=== PATIENT | female | born 1975 | race Caucasian/White ===

== ENCOUNTER 2024-01-14 08:26 | Outpatient (OUT) | payer BC, SELFPAY ==
--- NOTE | 2024-01-14 | XR_ITS ---
The [address] [address] Patient Name: CHARLI HARRIS MRN: [id number] date: 1975 Sex: F Assigned Patient Location: Current Patient Location: Accession/Order Number: [id number] Exam Date: 01/14/2024 08:27 Report Date: 01/17/2024 09:56 At the request of: LUCERO PAULA Procedure: XR lumbar spine 2-3V EXAMINATION: XR lumbar spine 2-3V HISTORY: LUMBAR SPINE PAIN COMPARISON: XR lumbar spine 05/03/2023 FINDINGS: BONES: Posterior mechanical fusion L4-L5 via bilateral pedicle screws and rods; no appreciable hardware fracture loosening. Mechanical fusion of left sacroiliac joint. Posterior decompression of L5. Mild degenerative facet arthropathy L4-L5, L5-S1. DISC SPACES: No significant disc height narrowing, subluxation, or endplate abnormality. PARASPINOUS: Negative. No paraspinous abnormality is seen. OTHER: Negative. XR/XR lumbar spine 2-3V IMPRESSION: 1. Mechanical fusion of L5-S1 along with posterior decompression. 2. Fusion of left sacroiliac joint. 3. No appreciable acute abnormality. Electronically authenticated by: ANA ELIAS Date: 01/17/2024 09:56
== END 2024-01-14 08:27 | disposition home or self-care (01) ==
LOC: EC 08:26
PROVIDERS: Visit Provider Orthopaedic Surgery Orthopaedic Surgery of the Spine
DX: Z47.89 Encounter for other orthopedic aftercare (principal); M43.26 Fusion of spine, lumbar region; Z98.1 Arthrodesis status
CPT/HCPCS: 72100

== ENCOUNTER 2024-01-24 13:55 | Outpatient (OUT) | payer BC, SELFPAY ==
--- NOTE | 2024-01-24 14:56 | P.CN_ITS ---
Consult Note: HPI Data of Consult Patient: new to practice Consult date: 01/24/24 Requesting Physician: Bing Rodriguez MD Primary Care Provider: Non-Staff Physician, Consult Narrative Reason for consult: right low back/buttock pain Narrative: 48yof who presents for evaluation. increasing right low back and buttock pain. had lumbar fusion l3-5 earlier this year. very tender over right PSIS. has difficulty sleeping, sitting in car. currently uses gabapentin. complete physical therapy and continues in provider directed home exercises >6 weeks, without lasting benefit. denies adverse med side effects. cc:: CC: Bing Rodriguez MD Review of Systems ROS Status of ROS 10 or more systems reviewed and unremark able except as noted in history and below Exam Narrative Exam Narrative: Psych-alert and oriented x 3. Attentive and appropriate, constitutionally normal, displays normal mood and affect per situation.? There are no obvious deficits in memory, reasoning, or intellect.? Skin-no obvious rashes, bruising, erythema noted to the patient's area of pain. Extremities- extremities are warm with minimal edema and palpable pulses. Lumbar-no significant tenderness to palpation noted in the lumbar spine and paraspinal musculature.? Pain is elicited with extension, and lateral rotation of the lumbar spine. Range of motion is slightly diminished with these motions due to pain. Facet loading maneuvers are positive bilaterally and do appear to be concordant with the patient's normal complaints of pain.? Sacroiliac - tender to palpation over right PSIS. Positive Dannie's on right. Positive thigh thrust on right. Coordination remains intact.? Gait remains non-antalgic. Assessment and Plan Assessment and Plan (1) Sacroiliac joint dysfunction of right side: Plan 48yof who presents for evaluation. failed conservative measures, as noted. 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 fused from l3-5. given symptoms and exam, prudent to attempt right sij injection under fluoroscopic guidance, as requested by back surgeon. she is in agreement. meds reviewed, no changes. follow up after procedure.
== END 2024-01-24 13:56 | disposition home or self-care (01) ==
LOC: PM 13:55
PROVIDERS: Visit Provider Anesthesiology
DX: M53.3 Sacrococcygeal disorders, not elsewhere classified (principal)
CPT/HCPCS: G0463

== ENCOUNTER 2024-02-21 07:58 | Day surgery (SDC) | payer BC, SELFPAY ==
[2024-02-21 08:39] VITALS: BP 153/98; PULSE 99; TEMP 36.6; O2SAT 95
[2024-02-21 08:50] LABS: Glucometer 126 mg/dL (74-106)
[2024-02-21 09:08] VITALS: BP 142/87; BP 148/89; PULSE 102; PULSE 88; O2SAT 91; O2SAT 92
[2024-02-21] MEDS: BUPIVACAINE HCL 0.25% PF 25 MG/10 ML VIAL 5 ML INJ (09:09)
[2024-02-21] MEDS: IOHEXOL 240 MG/ML - 10 ML VIAL INJ (09:09)
[2024-02-21] MEDS: TRIAMCINOLONE ACETONIDE 40 MG/ML VIAL INJ (09:10)
[2024-02-21] MEDS: LIDOCAINE HCL 2% 400 MG/20 ML MDV 15 ML INJ (09:10)
--- NOTE | 2024-02-21 09:10 | W.PM.PROCNOT ---
Date of procedure: 02/21/24 Pre-op diagnosis: Pain due to right sacroiliitis Post-op diagnosis: same as pre-op Procedure: Procedure: Right sacroiliac joint injection Medications: Bupivacaine 0.25% 2cc, kenalog 40mg After informed consent was obtained, the patient was brought to the medical procedure unit and placed in the prone position, when a timeout was completed verifying correct patient, procedure, site, positioning, implant, and/or special equipment.? The skin overlying the area was prepped and draped in standard sterile fashion using alcohol.? A 25-gauge needle was inserted towards the right sacroiliac joint under direct fluoroscopic imaging.? Needle tip was advanced until the joint was encountered.? We instilled a total of 2 mL of solution.? Postoperatively needles were removed.? The patient tolerated the procedure well without complication.? The patient reported reduction in pain symptoms postoperatively. Anesthesia: Local Surgeon: Bing Rodriguez Pathology: none sent Condition: stable Disposition: no change
== END 2024-02-21 09:16 | disposition home or self-care (01) ==
LOC: SURGOUT 07:58
PROVIDERS: Visit Provider Anesthesiology
DX: M46.1 Sacroiliitis, not elsewhere classified (principal)
CPT/HCPCS: 27096; 36415; 82948; J0665; J3301; Q9966

== ENCOUNTER 2024-03-01 08:27 | Outpatient (OUT) | payer BC, SELFPAY ==
--- NOTE | 2024-03-01 09:02 | PM.CN ---
Consult Note: HPI Data of Consult Patient: known to practice within the last 3 years Consult date: 01/24/24 Requesting Physician: Luz Singh NP Primary Care Provider: Non-Staff Physician, MD Consult Narrative Reason for consult: right low back/buttock pain Narrative: 48yof who presents for evaluation. increasing right low back and buttock pain. had lumbar fusion l3-5 earlier this year. has difficulty sleeping, sitting in car. currently uses gabapentin. complete physical therapy and continues in provider directed home exercises >6 weeks, without lasting benefit. denies adverse med side effects. patient recently underwent right SIJ injection with no significant relief while anesthetized, 50% improvement ongoing. Patient continues to have moderate to severe low back pain without NC. cc:: CC: Luz Singh NP Review of Systems ROS Status of ROS 10 or more systems reviewed and unremarkable except as noted in history and below Musculoskeletal Reports: back pain and joint pain [facility]SH [facility] Medical History (Updated 03/01/24 @ 09:04 by Luz Singh NP) Osteoarthritis ?M19.90 - Unspecified osteoarthritis, unspecified site (ICD-10) Anxiety ?F41.9 - Anxiety disorder, unspecified (ICD-10) Diabetes ?E11.9 - Type 2 diabetes mellitus without complications (ICD-10) HTN (hypertension) ?I10 - Essential (primary) hypertension (ICD-10) Surgical History History of Achilles tendon repair ?Z98.890 - Other specified postprocedural states (ICD-10) History of hysterectomy ?Z90.710 - Acquired absence of both cervix and uterus (ICD-10) History of lumbar fusion ?Z98.1 - Arthrodesis status (ICD-10) History of hernia repair ?Z98.890 - Other specified postprocedural states (ICD-10) ?Z87.19 - Personal history of other diseases of the digestive system (ICD-10) Meds Home Medications and Allergies Home Medications ?Medication ?Instructions ?Recorded ?Confirmed ?Type dulaglutide 1.5 mg/0.5 mL 1.5 mg subcut QWEEK 01/24/24 02/21/24 [facility] gabapentin 300 mg capsule 300 mg PO DAILY 01/24/24 02/21/24 History melatonin 5 mg tablet 5 mg PO DAILY 01/24/24 02/21/24 History metformin 1,000 mg tablet 1,000 mg PO BID 01/24/24 02/21/24 History pantoprazole 40 mg tablet,delayed 40 mg PO BID 01/24/24 02/21/24 History release (Protonix) paroxetine HCl 30 mg tablet (Paxil) 30 mg PO DAILY 01/24/24 02/21/24 History verapamil 240 mg 24 hr 240 mg PO DAILY 01/24/24 02/21/24 History capsule,extended release Allergies Allergy/AdvReac Type Severity Reaction Status Date / Time acetaminophen [From [place]] Allergy Unknown Unknown Verified 02/21/24 08:37 codeine Allergy Unknown Unknown Verified 02/21/24 08:37 hydrocodone [From [place]] Allergy Unknown Unknown Verified 02/21/24 08:37 Sulfa (Sulfonamide Allergy Unknown Unknown Verified 02/21/24 08:37 Antibiotics) Exam Constitutional Documenting provider has reviewed patient's vital signs: yes Common normals: no apparent distress, oriented x3, healthy appearing, alert and well nourished General appearance: cooperative HENMT Common normals: normocephalic, hearing grossly normal bilaterally and moist oral mucous membranes Head and scalp: normocephalic Eye Common normals: PERRL Pupil: PERRL Neck & C-Spine Common normals: full ROM General: normal visual inspection Chest Common normals: inspection of chest normal Respiratory Common normals: normal respiratory effort, no retractions and no use of accessory muscles Back & Pelvis Lumbar spine/lower back: ROM limited, pain with ROM and lumbar spinal tenderness; no paraspinal muscle tenderness and no paraspinal muscle spasm Sacroiliac joints: SI joint(s) abnormal Other: right sij mildly positive mervat(patricks), gaenslens, thigh thrust, compression test strength 5/5 in BLE sensation intact BLE increased low back pain with standing and walking Neuro Common normals: oriented x3, CN's II-XII intact bilaterally, moves all extremities, no focal motor deficits, no sensory deficits noted and deep tendon reflexes 2+ bilaterally Sensorium/orientation: alert Motor exam: strength 5/5 throughout and no movement abnormalities noted Psych Common normals: mental status grossly normal, thought process normal, cooperative, affect normal, speech normal and activity/motor behavior normal Speech: normal speech Thought process: normal thought process Results Additional Findings Additional findings: If on a controlled substance or opioids, I have checked an [place] report on this patient and there are no aberrancies noted in the prescribing history.??If on a controlled substance or opioid a drug screen was completed and reviewed within the last year, and if there has not been a drug screen completed we ordered one today to monitor higher risk, state monitored pain medication use. As part of providing excellent, safe, comprehensive care, the following was completed at our patient's visit: 1. A medication reconciliation and review to ensure accurate knowledge of current/active medications, including asking our patients to inform us about any [id number] medications or herbal remedies/nutritional supplements/alternative remedies. 2. A review to specifically ensure our patients have had annual screening for screening for depression, screening for tobacco use, and screening for unhealthy alcohol use. For concerning screenings had a discussion with the patient, provided patient education, and recommended follow-up with primary care provider when appropriate. If patient noted with a risk of falling, they received education on strength, gait, and balance training to prevent future risk of falling. Assessment and Plan Assessment and Plan (1) Sacroiliac joint dysfunction of right side: (2) Lumbar spondylosis: (3) Status post lumbar spinal fusion: Plan right SIJ injection provided minor relief while anesthetized, 50% improvement ongoing. patient continues to report moderate to severe axial low back pain, notable pain over L3-5 facets on exam. Pt to return to [facility] for f/u as scheduled. We can consider bilateral L3-4 L4-5 MBBs x2 working towards RFA in the future however I would like pt to be 1 year post-op as her pain may continue to improve without need for injections f/u 6 months, sooner if needed or advised otherwise by [facility]
== END 2024-03-01 08:28 | disposition home or self-care (01) ==
LOC: PM 08:28
PROVIDERS: Visit Provider Nurse Practitioner
DX: M53.3 Sacrococcygeal disorders, not elsewhere classified (principal); M47.816 Spondylosis without myelopathy or radiculopathy, lumbar region; M43.26 Fusion of spine, lumbar region
CPT/HCPCS: G0463

== ENCOUNTER 2024-03-31 10:02 | Outpatient (OUT) | payer BC, SELFPAY ==
--- NOTE | 2024-03-31 | XR_ITS ---
The [address] [address] Patient Name: CHARLI HARRIS MRN: [id number] date: 1975 Sex: F Assigned Patient Location: Current Patient Location: Accession/Order Number: [id number] Exam Date: 03/31/2024 10:02 Report Date: 04/02/2024 06:45 At the request of: LUCERO PAULA Procedure: XR lumbar spine min 4V EXAMINATION: XR lumbar spine min 4V HISTORY: LUMBAR SPINE PAIN COMPARISON: XR lumbar spine 01/14/2024 FINDINGS: BONES: Posterior mechanical fusion L5-S1 via bilateral pedicle screws and rods, and posterior decompression of L5; no appreciable hardware fracture loosening. Fusion of left sacroiliac joint, unchanged. DISC SPACES: Mild narrowing L2-L3, L5-S1. PARASPINOUS: Negative. No paraspinous abnormality is seen. OTHER: Negative. XR/XR lumbar spine min 4V IMPRESSION: 1. Stable surgical changes without evidence of hardware failure or change in alignment. 2. Stable to slight progression of degenerative disc disease. Electronically authenticated by: ANA ELIAS Date: 04/02/2024 06:45
--- OUTSIDE RECORDS SUMMARY | 2024-03-31 10:26 | XMS_ITS | CCD ---
Author Organization [facility] CliniSypr Care Team Providers Care Learning Disabilities Resource Teacher Name Role Phone Elias Alex Abel Primary Care Provider Zayra Sloan Primary Care Provider Zayra Sloan Primary Care Provider Zayra Sloan DO Primary Care Provider [phone] HAI, DR GLENN Gambino Admitting Unavailable WEST, DR GLENN Gambino Consulting Unavailable WEST, DR GLENN Gambino Attending Unavailable MISC, DR WALDORN Primary Care Unavailable MISC, DR WALDRON Primary Care Unavailable WEST, DR GLENN Gambino Admitting Unavailable WEST, DR GLENN Gambino Consulting Unavailable WEST, DR GLENN Gambino Attending Unavailable ZIEBER, DR ANA Latif Consulting Unavailable MISC, DR WALDRON Primary Care Unavailable ZIEBER, DR ANA Latif Consulting Unavailable HIGHLANDER, JEAN MARIE Attending Unavailable HIGHLANDER, JEAN MARIE Admitting Unavailable HIGHLANDER, JEAN MARIE Consulting Unavailable MISC, DR WALDRON Primary Care Unavailable WEST, DR GLENN Gambino Consulting Unavailable WEST, DR GLENN Gambino Attending Unavailable WEST, DR GLENN Gambino Admitting Unavailable MISC, DR WALDRON Primary Care Unavailable PERI LEONG Attending Unavailable WEST, DR GLENN Gambino Consulting Unavailable PERI LEONG Admitting Unavailable ZIEBER, DR ANA Latif Consulting Unavailable SALOPERI Consulting Unavailable WEST, DR GLENN Gambino Consulting Unavailable WEST, DR GLENN Gambino Attending Unavailable WEST, DR GLENN Gambino Admitting Unavailable MISC, DR WALDRON Primary Care Unavailable Zayra Sloan DO Primary Care Provider [phone] Zayra Sloan DO Primary Care Provider Zayra Sloan DO Primary Care Provider NON STAFF Primary Care Provider MD Ministerio Aguirre Attending Provider [phone] Zayra Sloan DO Primary Care Provider [phone] [facility] Zayra POWELL Primary Care Provider [facility]. Other Primary Care Provider MARCE ELLIOT Attending Unavailable SIEGAL, ELLIOT Referring Unavailable [facility], [facility] OTHER Primary Care Unavailable [facility], [facility] OTHER Primary Care Unavailable [facility], [facility]. Other Primary Care Provider LUTMAN V, CHRISTOPHER Admitting Unavailabl e LUTMAN V, CHRISTOPHER Attending Unavailabl e ZAYRA SLOAN Primary Care Unavailable HEMPHILL, KEILA S Attending Unavailable [facility], [facility] OTHER Primary Care Unavailable HEMPHILL, KEILA S Referring Unavailable [facility] OTHER Primary Care Unavailable HEMPHILL, KEILA S Referring Unavailable HEMPHILL, KEILA S Attending Unavailable [facility], [facility] OTHER Primary Care Unavailable HEMPHILL, KEILA S Referring Unavailable HEMPHILL, KEILA S Attending Unavailable [facility], [facility] OTHER Primary Care Unavailable [facility], [facility] OTHER Primary Care Unavailable [facility] OTHER Primary Care Unavailable [facility], [facility] OTHER Primary Care Unavailable SIEGAL, ELLIOT Attending Unavailable SIEGAL, ELLIOT Referring Unavailable SELF, SELF Referring Unavailable [facility], [facility] OTHER Primary Care Unavailable HEMPHILL, KEILA S Attending Unavailable [facility], [facility] OTHER Primary Care Unavailable [facility], [facility] OTHER Primary Care Unavailable SIEGAL, ELLIOT Attending Unavailable MARCEL GALLEGO Referring Unavailable SIEGAL, ELLIOT Admitting Unavailable SIEGAL, ELLIOT Referring Unavailable [facility], [facility] OTHER Primary Care Unavailable SIEGAL, ELLIOT Attending Unavailable [facility], [facility] OTHER Primary Care Unavailable SIEGAL, ELLIOT Attending Unavailable SIEGAL, ELLIOT Referring Unavailable SELF, SELF Referring Unavailable [facility], [facility] OTHER Primary Care Unavailable HEMPHILL, KEILA S Attending Unavailable [facility], [facility] OTHER Primary Care Unavailable HEMPHILL, KEILA S Attending Unavailable SIEGAL, ELLIOT Referring Unavailable [facility], [facility] OTHER Primary Care Unavailable SIEGAL, ELLIOT Attending Unavailable SIEGAL, ELLIOT Referring Unavailable SIEGAL, ELLIOT Attending Unavailable [facility] OTHER Primary Care Unavailable SIEGAL, ELLIOT Referring Unavailable SIEGAL, ELLIOT Referring Unavailable [facility], [facility] OTHER Primary Care Unavailable SIEGAL, ELLIOT Attending Unavailable SIEGAL, ELLIOT Referring Unavailable [facility] OTHER Primary Care Unavailable SIEGAL, ELLIOT Attending Unavailable [facility], [facility] OTHER Primary Care Unavailable SIEGAL, ELLIOT Attending Unavailable SIEGAL, ELLIOT Referring Unavailable SIEGAL, ELLIOT Attending Unavailable SIEGAL, ELLIOT Referring Unavailable [facility], [facility] OTHER Primary Care Unavailable [facility] OTHER Primary Care Unavailable HEMPHILL, KEILA S Referring Unavailable HEMPHILL, KEILA S Attending Unavailable [facility] OTHER Primary Care Unavailable HEMPHILL, KEILA S Referring Unavailable HEMPHILL, KEILA S Attending Unavailable SIEGAL, ELLIOT Referring Unavailable [facility], [facility] OTHER Primary Care Unavailable SIEGAL, ELLIOT Attending Unavailable SIEGAL, ELLIOT Admitting Unavailable SIEGAL, ELLIOT Referring Unavailable [facility], [facility] OTHER Primary Care Unavailable SIEGAL, ELLIOT Attending Unavailable PEDRO PABLO, SELVON F Referring Unavailable YONLEY, ZAYRA L Primary Care Unavailable PEDRO PABLO, SELVON F Referring Unavailable YONLEY, ZAYRA L Primary Care Unavailable PEDRO PABLO, SELVON F Admitting Unavailable PEDRO PABLO, SELVON F Attending Unavailable YONLEY, ZAYRA L Primary Care Unavailable Yonley DO, Zayra L Primary Care Provider [phone] SIEGAL, ELLIOT D Referring Unavailable YONLEY, ZAYRA L Primary Care Unavailable YONLEY, ZAYRA L Referring Unavailable YONLEY, ZAYRA L Primary Care Unavailable SIEGAL, ELLIOT D Referring Unavailable YONLEY, ZAYRA L Primary Care Unavailable SIEGAL, ELLIOT D Referring Unavailable YONLEY, ZAYRA L Primary Care Unavailable SIEGAL, ELLIOT D Referring Unavailable YONLEY, ZAYRA L Primary Care Unavailable SIEGAL, ELLIOT D Referring Unavailable YONLEY, ZAYRA L Primary Care Unavailable YONLEY, ZAYRA L Primary Care Unavailable SIEGAL, ELLIOT D Referring Unavailable RICARDO VIVEROS Referring Unavailable SHENDGE, VITHAL Referring Unavailable RICARDO VIVEROS Attending Unavailable RICARDO VIVEROS A Referring Unavailable SHENDGE, VITHAL Attending Unavailable Jennifer NOBLE, Bing Lopez Attending Unavailable Jennifer NOBLE, Bing Lopez Attending Unavailable TINO SÁNCHEZ Referring Unavailable ZAYRA SLOAN Primary Care Unavailable ZAYRA SLOAN Primary Care Unavailable ZAYRA SLOAN Primary Care Unavailable Allergies Allergy Classification Reported Allergen(s) Allergy Type Date of Onset Reaction(s) Facility Opioid Agonists (1 source) Codeine Drug Allergy 3 Shortness Of Breath [facility] Serotonin Reuptake Inhibitors (SSRIs) (1 source) Sertraline Drug Allergy 4 Nausea And Vomiting [facility] Sulfonamides (antibiotic) (1 source) Sulfonamides (Antibiotic) Drug Allergy 2 Shortness Of Breath, Swelling [facility] (20 sources) Codeine; Translations: [CODEINE] Drug Allergy 3 Shortness Of Breath [facility] [place] (20 sources) Sertraline; Translations: [SERTRALINE] Drug Allergy 4 Nausea And Vomiting, Shortness of Breath [facility] [place] (20 sources) Sulfonamides (Antibiotic) Propensity to adverse reactions to drug 2 Shortness Of Breath, Swelling [facility] [place] (1 source) Codeine Drug Allergy [facility] (1 source) Sertraline Drug Allergy [facility] (1 source) Sulfonamides (Antibiotic) Drug allergy (disorder) [facility] (20 sources) Penicillin G; Translations: [PENICILLIN G] Drug Allergy 1 Rash [facility] Work Phone: (20 sources) Phentermine; Translations: [PHENTERMINE] Drug Allergy 2 Shortness Of Breath [facility] (2 sources) Sulfonamides (Antibiotic); Translations: [SULFA (SULFONAMIDE ANTIBIOTICS)] Allergy to substance 2 Unknown Reaction [facility] (20 sources) Sulfonamides (Antibiotic) Propensity to adverse reactions to drug 2 Shortness Of Breath, Swelling [facility] (3 sources) Acetaminophen / HYDROcodone; Translations: [HYDROCODONE-ACET AMINOPHEN] Drug Allergy 4 Hives, Rash [facility] Medications Current Medications Medication Drug Class(es) Dates Sig (Normalized) Sig (Original) acetaminophen 500 mg oral tablet (7 sources) Start: 02-11-2023 End: 02-11-2023 acetaminophen (OFIRMEV) IVPB 1,000 mg Start: 09-08-2022 take 2 tablets by mo uth every six hours as needed for pain acetaminophen (TYLENOL) 500 MG tablet Take 2 tablets by mouth every 6 hours as needed for Pain 60 tablet 1 09/08/2022 Active Start: 09-08-2022 take 1000 mg by mout h every six hours, then take 4000 mg by mouth every twenty-four hours 1,000 mg, Oral, EVERY 6 HOURS, First dose on Wed09/08/22 at 1315, Until Discontinued Maximum dose of acetaminophen is 4000 mg from all sources in 24 hours. Post-op Start: 12-10-2021 End: 12-10-2021 acetaminophen (TYLENOL) tabl et 650 mg acetaminophen 325 mg / HYDROcodone bitartrate 5 mg oral tablet (7 sources) Opioid Agonist Start: 12-24-2023 End: 12-24-2023 HYDROcodone-acetaminophen (LORCET) 5-325 MG per tablet Indications: Tricompartment osteoarthritis of right knee Take 1 tablet by mouth every 4 hours as needed for Pain for up to 3 days. Intended supply: 3 days. Take lowest dose possible to manage pain Max Daily Amount: 6 tablets 18 tablet 0 12/24/2023 12/24/2023 Discontinued (Allergic response) Start: 02-11-2023 End: 02-11-2023 take 1-2 tablets by mouth every four hours as needed hydroCODone-acetaminophen (NORCO) 5-325 MG per tablet 1-2 tablet Start: 02-11-2023 End: 02-16-2023 take 1 tablet by mouth four times daily as needed for pain hydroCODone-acetaminophen 5-325 MG table t Indications: Elective surgery Take 1 tablet by mouth 4 times daily as needed for Moderate Pain for up to 5 days. 20 tablet 02/11/2023 Active Start: 12-10-2021 End: 12-13-2021 take 1 tablet by mouth every six hours as needed for pain HYDROcodone-acetaminophen (NORCO) 5-325 MG per tablet Indications: Dysmenorrhea Take 1 tablet by mouth every 6 hours as needed for Pain for up to 3 days. 10 tablet 0 12/10/2021 12/13/2021 Active Start: 12-10-2021 HYDROcodone-ac etaminophen (NORCO) 5-325 MG per tablet 1 tablet acetaminophen 325 mg / oxyCODONE hydrochloride 5 mg oral tablet (2 sources) Opioid Agonist Start: 12-24-2023 End: 12-27-2023 oxyCODONE-acetaminophen (ENDOCET) 5-325 MG per tablet Indications: Tricompartment osteoarthritis of right knee Take 1 tablet by mouth every 6 hours as needed for Pain for up to 3 days. Intended supply: 3 days. Take lowest dose possible to manage pain Max Daily Amount: 4 tablets 12 tablet 0 12/24/2023 12/27/2023 Active Start: 12-24-2023 End: 12-24-2023 oxyCODONE-acetaminophen (PER COCET) 5-325 MG per tablet 1 tablet [id number] actuat albuterol 0.09 mg/actuat metered dose inhaler (20 sources) beta2-Adrenergic Agonist Start: 11-28-2020 take 2 puff(s) by inhalation every six hours as needed for wheezing albuterol sulfate HFA (VENTOLIN HFA) 108 (90 Base) MCG/ACT inhaler Inhale 2 puffs into the lungs every 6 hours as needed for Wheezing 1 Inhaler 3 11/28/2020 Active Start: 09-23-2020 take 2 puff(s) by in halation four times daily as needed for wheezing albuterol sulfate HFA (VENTOLIN HFA) 108 (90 Base) MCG/ACT inhaler Inhale 2 puffs into the lungs 4 times daily as needed for Wheezing or Shortness of Breath 1 Inhaler 0 09/23/2020 Active Start: 06-29-2019 take 2 puff(s) by in halation every six hours as needed for wheezing albuterol sulfate HFA (VENTOLIN HFA) 108 (90 Base) MCG/ACT inhaler Inhale 2 puffs into the lungs every 6 hours as needed for Wheezing 1 Inhaler 3 06/29/2019 Active Start: 06-29-2019 take 2 puff(s) by in halation every six hours as needed for wheezing albuterol sulfate HFA (VENTOLIN HFA) 108 (90 Base) MCG/ACT inhaler Inhale 2 puffs into the lungs every 6 hours as needed for Wheezing 1 Inhaler 3 06/29/2019 Active Start: 04-11-2019 albuterol (PRO VENTIL) nebulizer solution 2.5 mg Start: 03-06-2019 take 2 puff(s) by in halation every six hours as needed for wheezing albuterol sulfate HFA (PROAIR HFA) 108 (90 Base) MCG/ACT inhaler Indications: Bronchitis, acute, with bronchospasm Inhale 2 puffs into the lungs every 6 hours as needed for Wheezing 1 Inhaler 0 03/06/2019 Active Start: 03-06-2019 take 2 puff(s) by in halation every six hours as needed for wheezing albuterol sulfate HFA (PROAIR HFA) 108 (90 Base) MCG/ACT inhaler Indications: Bronchitis, acute, with bronchospasm Inhale 2 puffs into the lungs every 6 hours as needed for Wheezing 1 Inhaler 0 03/06/2019 Active aspirin 325 mg delayed release oral tablet (1 source) Platelet Aggregation Inhibitor, Nonsteroidal Anti-inflammatory Drug Start: 04-13-2021 take 1 tablet by mouth once daily aspirin 325 MG EC tablet Take 1 tablet by mouth daily 30 tablet 1 04/13/2021 Active benzonatate 100 mg oral capsule (1 source) Non-narcotic Antitussive Start: 04-05-2020 End: 04-12-2020 take 1 capsule by mouth three times daily as needed for cough benzonatate (TESSALON PERLES) 100 MG capsule Indications: Viral URI with cough Take 1 capsule by mouth 3 times daily as needed for Cough 21 capsule 0 04/05/2020 04/12/2020 Active Blood Glucose Monitoring Suppl (TRUETRACK BLOOD GLUCOSE) w/Device KIT (1 source) Start: 03-31-2019 Blood Glucose Monitoring Suppl (TRUETRACK BLOOD GLUCOSE) w/Device KIT Indications: Type 2 diabetes mellitus without complication, without long-term current use of insulin ([facility]) Check blood sugar once daily in the morning fasting 1 kit 0 03/31/2019 Active 60 actuat budesonide 0.16 mg/actuat / formoterol fumarate 0.0045 mg/actuat metered dose inhaler (2 sources) Corticosteroid, beta2-Adrenergic Agonist Start: 04-14-2019 take 2 puff(s) by inhalation twice daily budesonide-formo terol (SYMBICORT) 160-4.5 MCG/ACT AERO Inhale 2 puffs into the lungs 2 times daily 1 Inhaler 5 05/15/2019 Active calcium chloride 0.0014 meq/ml / potassium chloride 0.004 meq/ml / sodium chloride 0.103 meq/ml / sodium lactate 0.028 meq/ml injectable solution (9 sources) Start: 12-10-2021 lactated ringers infusion Start: 05-23-2020 lactated ringe rs infusion Start: 05-09-2020 lactated ringe rs infusion Start: 04-11-2020 lactated ringe rs infusion Start: 03-07-2020 lactated ringe rs infusion Start: 05-15-2019 lactated ringe rs infusion Start: 05-15-2019 lactated ringe rs infusion celecoxib 200 mg oral capsule (20 sources) Nonsteroidal Anti-inflammatory Drug Start: 03-23-2023 take 1 capsule by mouth twice daily Celecoxib 200 MG capsule Take 1 capsule by mouth 2 times daily. 03/23/2023 Active Start: 09-09-2022 take 200 mg by mouth twice daily 200 mg, Oral, 2 TIMES DAILY, First dose on Wed09/09/22 at 0900, Until Discontinued, Post-op Start: 10-07-2020 End: 02-11-2023 take 1 capsule by mouth twice daily celecoxib (CELEBREX) 200 MG capsule TAKE 1 CAPSULE BY MOUTH TWICE A DAY 180 capsule 1 07/27/2022 Active Start: 04-29-2019 take 1 capsule by mo ut twice daily celecoxib (CELEBREX) 100 MG capsule take 1 capsule by mouth twice a day 60 capsule 5 04/29/2019 Active Start: 12-26-2018 take 1 capsule by mo ut twice daily celecoxib (CELEBREX) 100 MG capsule Take 1 capsule by mouth 2 times daily 60 capsule 3 12/26/2018 Active cephalexin 500 mg oral capsule (3 sources) Cephalosporin Antibacterial Start: 07-30-2022 End: 08-06-2022 take 1 capsule by mouth three times daily cephALEXin (KEFLEX) 500 MG capsule Indications: UTI symptoms Take 1 capsule by mouth 3 times daily for 7 days 21 capsule 0 07/30/2022 08/06/2022 Active cetirizine hydrochloride 10 mg oral tablet (14 sources) Histamine-1 Receptor Antagonist Start: 09-22-2022 take 1 tablet by mouth once daily cetirizine (ZYRTEC) 10 MG tablet Take 1 tablet by mouth daily 90 tablet 1 02/19/2022 Active cyclobenzaprine hydrochloride 10 mg oral tablet (1 source) Muscle Relaxant Start: 12-20-2019 End: 12-25-2019 take 1 tablet by mouth three times daily as needed for muscle spasms cyclobenzaprine (FLEXERIL) 10 MG tablet Take 1 tablet by mouth 3 times daily as needed for Muscle spasms 15 tablet 0 12/20/2019 12/25/2019 Active desloratadine 5 mg oral tablet (10 sources) Histamine-1 Receptor Antagonist Start: 06-12-2019 take 1 tablet by mouth once daily desloratadine (CLARINEX) 5 MG tablet take 1 tablet by mouth once daily 90 tablet 1 06/12/2019 Active Start: 12-16-2018 take 1 tablet by rafael th once daily desloratadine (CLARINEX) 5 MG tablet take 1 tablet by mouth once daily 90 tablet 1 12/16/2018 Active diclofenac sodium 0.01 mg/mg topical gel (1 source) Nonsteroidal Anti-inflammatory Drug Start: 12-24-2023 diclofenac sodium (VOLTAREN) 1 % GEL Apply 4 g topically 4 times daily 50 g 0 12/24/2023 Active Start: 12-24-2023 diclofenac sod ium (VOLTAREN) 1 % GEL Apply 4 g topically 4 times daily 50 g 0 12/24/2023 Active dicyclomine hydrochloride 20 mg oral tablet (20 sources) Anticholinergic Start: 09-08-2023 take 1 tablet by mouth three times daily as needed dicyclomine (BENTYL) 20 MG tablet TAKE 1 TABLET BY MOUTH 3 TIMES A DAY NEEDED FOR ABDOMINAL CRAMPING 90 tablet 5 09/08/2023 Active Start: 06-02-2022 take 1 tablet by rafael th three times daily as needed dicyclomine (BENTYL) 20 MG tablet TAKE 1 TABLET BY MOUTH 3 TIMES A DAY NEEDED FOR ABDOMINAL CRAMPING 90 tablet 1 06/02/2022 Active Start: 05-07-2022 take 1 tablet by rafael th three times daily as needed dicyclomine (BENTYL) 20 MG tablet TAKE 1 TABLET BY MOUTH 3 TIMES A DAY NEEDED FOR ABDOMINAL CRAMPING 90 tablet 1 05/07/2022 Active Start: 03-16-2022 take 1 tablet by rafael th three times daily as needed dicyclomine (BENTYL) 20 MG tablet TAKE 1 TABLET BY MOUTH 3 TIMES A DAY NEEDED FOR ABDOMINAL CRAMPING 90 tablet 1 03/16/2022 Active Start: 02-19-2022 take 1 tablet by rafael th three times daily as needed dicyclomine (BENTYL) 20 MG tablet TAKE 1 TABLET BY MOUTH 3 TIMES A DAY NEEDED FOR ABDOMINAL CRAMPING 90 tablet 1 02/19/2022 Active Start: 12-24-2021 take 1 tablet by rafael th three times daily as needed dicyclomine (BENTYL) 20 MG tablet TAKE 1 TABLET BY MOUTH 3 TIMES A DAY NEEDED FOR ABDOMINAL CRAMPING 90 tablet 1 12/24/2021 Active Start: 11-28-2021 take 1 tablet by rafael th three times daily as needed dicyclomine (BENTYL) 20 MG tablet TAKE 1 TABLET BY MOUTH 3 TIMES A DAY NEEDED FOR ABDOMINAL CRAMPING 90 tablet 1 11/28/2021 Active Start: 08-06-2021 take 1 tablet by rafael th three times daily as needed dicyclomine (BENTYL) 20 MG tablet TAKE 1 TABLET BY MOUTH 3 TIMES A DAY NEEDED FOR ABDOMINAL CRAMPING 90 tablet 1 08/06/2021 Active Start: 05-19-2021 take 1 tablet by rafael th three times daily as needed dicyclomine (BENTYL) 20 MG tablet TAKE 1 TABLET BY MOUTH 3 TIMES A DAY NEEDED FOR ABDOMINAL CRAMPING 90 tablet 1 05/19/2021 Active Start: 03-28-2021 take 1 tablet by rafael th three times daily as needed dicyclomine (BENTYL) 20 MG tablet TAKE 1 TABLET BY MOUTH 3 TIMES A DAY NEEDED FOR ABDOMINAL CRAMPING 90 tablet 1 03/28/2021 Active Start: 01-28-2021 take 1 tablet by rafael th three times daily as needed dicyclomine (BENTYL) 20 MG tablet TAKE 1 TABLET BY MOUTH 3 TIMES A DAY NEEDED FOR ABDOMINAL CRAMPING 90 tablet 1 01/28/2021 Active Start: 12-19-2020 take 20 mg by mouth twice [place] Dicyclomine Active 20 MG PO Twice daily December 19, 2020 12:00am Start: 05-10-2021 take 1 tablet by rafael th three times daily as needed dicyclomine (BENTYL) 20 MG tablet TAKE 1 TABLET BY MOUTH THREE TIMES DAILY prn abd cramping 120 tablet 0 10/07/2020 Active Start: 09-02-2019 End: 03-07-2020 take 1 tablet by mouth three times daily dicyclomine (BENTYL) 20 MG tablet TAKE 1 TABLET BY MOUTH THREE TIMES DAILY 0 09/02/2019 03/07/2020 Discontinued (Therapy completed) Dicyclomine 20 M G tablet Take 1 tablet by mouth every 6 hours. USUALLY BID Active 0.5 ml dulaglutide 3 mg/ml auto-injector (10 sources) GLP-1 Receptor Agonist Start: 12-17-2023 dulaglutide (TRULICITY) 1.5 MG/0.5ML SC injection Inject 0.5 mLs into the skin once a week 6 mL 2 12/17/2023 Active Start: 12-19-2020 Dulaglutide (T RULICITY) 1.5 MG/0.5ML SOPN Inject 1.5 mg into the skin once a week 12 pen 1 01/14/2021 Active Start: 10-07-2020 Dulaglutide (T RULICITY) 1.5 MG/0.5ML SOPN Inject 1.5 mg into the skin once a week 12 pen 0 10/07/2020 Active Dulaglutide (Berto licity) 0.75 MG/0.5ML Solution Pen-injector injection Inject under the skin. Active Dulaglutide (TRULICITY) 3 MG/0.5ML SOPN (1 source) Start: 02-29-2024 Dulaglutide (TRULICITY) 3 MG/0.5ML SOPN Inject 3 mg into the skin once a week 2 mL 2 02/29/2024 Active ertugliflozin 15 mg oral tablet (1 source) Start: 09-18-2021 take 1 tablet by mouth once daily Ertugliflozin L-PyroglutamicAc (STEGLATRO) 15 MG TABS Take 15 mg by mouth daily 30 tablet 5 09/18/2021 Active 168 hr estradiol 0.26885 mg/hr transdermal system (2 sources) Estrogen Start: 01-05-2024 estradiol (CLI CLAUDETTE) 0.05 MG/24HR Indications: Artificial menopause Place 1 patch onto the skin once a week 4 patch 12 01/05/2024 Active Start: 12-19-2020 apply 1 dose transde rmal route every week Estradiol Active 1 PATCH TRANSDERML every week December 19, 2020 12:00am 168 hr estradiol 0.46546 mg/hr / levonorgestrel 0.673722 mg/hr transdermal system (7 sources) Progestin, Estrogen, Progestin-containing Intrauterine Device Start: 10-22-2022 Estradiol-Levonorgestrel (Climara Pro) 0.045-0.015 MG/DAY Patch Weekly Place 1 patch on skin. 10/22/2022 Active ferrous sulfate 325 mg oral tablet (20 sources) Start: 11-22-2020 take 1 tablet by mouth twice daily ferrous sulfate (IRON 325) 325 (65 Fe) MG tablet Take 1 tablet by mouth 2 times daily 60 tablet 5 11/22/2020 Active take 1 tablet by rafael th once daily at bedtime ferrous sulfate 325 (65 Fe) MG tablet Take 1 tablet by mouth daily. hs 0 Active take 1 tablet by rafael th three times daily at mealtime ferrous sulfate 325 (65 Fe) MG tablet Take 1 tablet by mouth 3 times daily with meals. 0 Active gabapentin 300 mg oral capsule (20 sources) Anti-epileptic Agent Start: 11-12-2023 End: 05-10-2024 take 1 capsule by mouth once daily gabapentin (NEURONTIN) 300 MG capsule Take 1 capsule by mouth nightly for 180 days. 90 capsule 1 11/12/2023 05/10/2024 Active Start: 09-08-2022 take 300 mg by mouth once [place] 300 mg, Oral, NIGHTLY, First dose on Wed09/08/22 at 2100, Until Discontinued, Post-op Start: 07-13-2022 End: 10-11-2022 take 1 capsule by mouth twice daily gabapentin (NEURONTIN) 300 MG capsule Take 1 capsule by mouth 2 times daily for 90 days. 60 capsule 2 07/13/2022 10/11/2022 Active Start: 05-13-2022 End: 06-12-2022 gabapentin (NEURONTIN) 300 M G capsule Take 1 capsule by mouth 2 times daily for 30 days. Intended supply: 30 days 60 capsule 0 05/13/2022 Active take 1 capsule by mo uth three times daily Gabapentin 300 MG capsule Take 1 capsule by mouth 3 times daily. 0 Active 1000 ml glucose 100 mg/ml injection (3 sources) Start: 09-08-2022 take 1 mL intravenously every hour IntraVENous, at 100 mL/hr, CONTINUOUS PRN, if blood glucose remains LESS THAN 70 mg/dL after 2 dextrose 10% intravenous boluses or administration of glucagon, Starting on Wed09/08/22 at 1254 If blood glucose fails to stabilize after 2 dextrose 10% intravenous boluses or glucagon administration, start dextrose 10% infusion at 100 mL/hour and repeat blood glucose at 30 and 60 minutes. If blood glucose is GREATER THAN 70 mg/dL after 60 minutes, discontinue dextrose 10% infusion. Post-op Start: 09-08-2022 dextrose bolus 10% 125 mL Start: 09-08-2022 16 g (4 tablet ), Oral, PRN, Starting on Wed09/08/22 at 1254, Until Discontinued, Low blood sugar If blood glucose is LESS THAN 70 mg/dL and patient is alert and tolerating oral. Give 4 tablets (16g) Repeat blood glucose in 15 minutes. If blood glucose is LESS THAN 70 mg/dL, repeat treatment and recheck blood glucose in 15 minutes x 2. If blood glucose remains LESS THAN 70 mg/dL, notify provider. Post-op 12 hr guaiFENesin 600 mg extended release oral tablet (14 sources) Start: 02-19-2022 take 1 tablet by mouth twice daily as needed for congestion guaiFENesin (MUCINEX) 600 MG extended release tablet Take 1 tablet by mouth 2 times daily as needed for Congestion 30 tablet 0 02/19/2022 Active 2.5 ml sodium hyaluronate 10 mg/ml prefilled syringe (4 sources) Start: 10-23-2022 Sodium Hyaluro radha 25 MG/2.5ML Solution Prefilled Syringe 0.75 mL by Intra-articular route Once (In Clinic) for 1 dose. 7.5 mL 10/23/2022 Active hydrOXYzine pamoate 25 mg oral capsule (7 sources) Antihistamine Start: 03-19-2022 End: 03-29-2022 take 1 capsule by mouth three times daily as needed hydrOXYzine pamoate (VISTARIL) 25 MG capsule Take 1 capsule by mouth 3 times daily as needed for Itching 30 capsule 0 03/19/2022 03/29/2022 Active Start: 12-20-2021 take 1-2 tablets by mouth every eight hours as needed hydrOXYzine HCl (ATARAX) 25 MG tablet Take 1-2 tablets by mouth every 8 hours as needed for Itching 30 tablet 0 12/20/2021 Active Start: 06-01-2021 End: 06-01-2021 hydrOXYzine (VISTARIL) capsu le 50 mg Start: 06-01-2021 End: 06-15-2021 take 1 capsule by mouth three times daily as needed hydrOXYzine (VISTARIL) 25 MG capsule Take 1 capsule by mouth 3 times daily as needed for Itching 20 capsule 0 06/01/2021 06/15/2021 Active labetalol (NORMODYNE;TRANDATE) injection 10 mg (1 source) Start: 12-10-2021 labetalol (NORMODYNE;TRANDATE) injection 10 mg levoFLOXacin 750 mg oral tablet (1 source) Quinolone Antimicrobial Start: 09-23-2022 End: 09-30-2022 take 1 tablet by mouth once daily levoFLOXacin (LEVAQUIN) 750 MG tablet Take 1 tablet by mouth daily for 7 days 7 tablet 0 09/23/2022 09/30/2022 Active loratadine 10 mg oral tablet (14 sources) Start: 10-07-2020 take 10 mg by mouth once daily Loratadine Active 10 MG PO Daily December 19, 2020 12:00am take 1 tablet by mouth once [place] loratadine (CLARITIN) 10 MG tablet Take 10 mg by mouth daily 0 Active metFORMIN hydrochloride 1000 mg oral tablet (20 sources) Biguanide Start: 11-08-2023 take 1 tablet by mouth twice daily at mealtime metFORMIN (GLUCOPHAGE) 1000 MG tablet Indications: Type 2 diabetes mellitus without complication, without long-term current use of insulin (HCC) TAKE 1 TABLET BY MOUTH TWICE A DAY WITH FOOD 180 tablet 1 11/08/2023 Active Start: 03-31-2022 take 1 tablet by rafael th twice daily at mealtime metFORMIN (GLUCOPHAGE) 1000 MG tablet Indications: Type 2 diabetes mellitus without complication, without long-term current use of insulin (HCC) TAKE 1 TABLET BY MOUTH TWICE A DAY WITH MEALS 180 tablet 1 03/31/2022 Active Start: 10-07-2020 take 1 tablet by rafael th twice daily at mealtime metFORMIN (GLUCOPHAGE) 1000 MG tablet Indications: Type 2 diabetes mellitus without complication, without long-term current use of insulin ([facility]) Take 1 tablet by mouth twice daily with meals 180 tablet 1 09/18/2021 Active Start: 03-18-2020 take 1 tablet by rafael th twice daily at mealtime metFORMIN (GLUCOPHAGE) 1000 MG tablet Indications: Type 2 diabetes mellitus without complication, without long-term current use of insulin ([facility]) TAKE 1 TABLET BY MOUTH TWICE DAILY WITH MEALS 180 tablet 1 03/18/2020 Active Start: 09-11-2019 take 1 tablet by rafael th twice daily at mealtime metFORMIN (GLUCOPHAGE) 1000 MG tablet Indications: Type 2 diabetes mellitus without complication, without long-term current use of insulin ([facility]) Take 1 tablet by mouth 2 times daily (with meals) 180 tablet 1 09/11/2019 Active Start: 03-31-2019 take 1 tablet by rafael th twice daily at mealtime metFORMIN (GLUCOPHAGE) 500 MG tablet Indications: Type 2 diabetes mellitus without complication, without long-term current use of insulin ([facility]) Take 1 tablet by mouth 2 times daily (with meals) 180 tablet 1 03/31/2019 Active take 2 tablets by mo uth twice daily at mealtime metFORMIN 500 MG tablet Take 2 tablets by mouth 2 times daily with meals. Active methylPREDNISolone 4 mg oral tablet (1 source) Corticosteroid Start: 12-24-2023 End: 12-30-2023 methylPREDNISolone (MEDROL, PETERSON,) 4 MG tablet Take by mouth. 1 kit 0 12/24/2023 12/30/2023 Active 2 ml metoclopramide 5 mg/ml prefilled syringe (1 source) Dopamine-2 Receptor Antagonist Start: 12-10-2021 End: 12-10-2021 metoclopramide (REGLAN) injection 10 mg montelukast 10 mg oral tablet (20 sources) Leukotriene Receptor Antagonist Start: 02-03-2024 take 1 tablet by mouth once daily at bedtime montelukast (SINGULAIR) 10 MG tablet TAKE 1 TABLET BY MOUTH EVERYDAY AT BEDTIME 90 tablet 1 02/03/2024 Active Start: 11-02-2023 take 1 tablet by rafael th once daily at bedtime montelukast (SINGULAIR) 10 MG tablet TAKE 1 TABLET BY MOUTH EVERYDAY AT BEDTIME 90 tablet 1 11/02/2023 Active Start: 12-16-2018 take 1 tablet by rafael th once daily at bedtime montelukast (SINGULAIR) 10 MG tablet TAKE 1 TABLET BY MOUTH EVERYDAY AT BEDTIME 90 tablet 1 03/31/2022 Active Multiple Vitamin (multivitamin) tablet (3 sources) take 1 tablet by mouth once daily Multiple Vitamin (multivitamin) tablet Take 1 tablet by mouth daily. 0 Active naproxen 500 mg oral tablet (15 sources) Nonsteroidal Anti-inflammatory Drug Start: 024 take 1 tablet by mouth twice daily at mealtime naproxen (NAPROSYN) 500 MG tablet Take 1 tablet by mouth 2 times daily (with meals) 180 tablet 1 12/24/2023 Active Start: 01-17-2020 take 1 tablet by rafael th twice daily after mealtime naproxen (NAPROSYN) 500 MG tablet TAKE 1 TABLET BY MOUTH TWICE DAILY AFTER MEAL 0 01/17/2020 Active Start: 09-11-2019 End: 12-20-2019 take 1 tablet by mouth twice daily naproxen (NAPROSYN) 500 MG tablet Take 1 tablet by mouth 2 times daily 60 tablet 0 09/11/2019 12/20/2019 Discontinued (LIST CLEANUP) Naproxen Sodium (ALEVE) 220 MG CAPS Take by mouth 0 Active ondansetron 4 mg oral tablet (13 sources) Serotonin-3 Receptor Antagonist Start: 11-18-2023 take 1 tablet by mouth three times daily as needed for nausea ondansetron (ZOFRAN) 4 MG tablet Take 1 tablet by mouth 3 times daily as needed for Nausea or Vomiting 30 tablet 1 11/18/2023 Active Start: 07-02-2023 End: 07-02-2023 Ondansetron 4mg/2ml (ZOFRAN) injection 4 mg Start: 02-11-2023 End: 02-11-2023 Ondansetron 4mg/2ml (ZOFRAN) injection 4 mg Start: 09-08-2022 take 1 tablet by rafael th every eight hours as needed for nausea ondansetron (ZOFRAN) 4 MG tablet Take 1 tablet by mouth every 8 hours as needed for Nausea or Vomiting 30 tablet 0 09/08/2022 Active Start: 04-07-2022 take 1 tablet by rafael th every eight hours as needed for nausea ondansetron (ZOFRAN) 4 MG tablet Take 1 tablet by mouth every 8 hours as needed for Nausea or Vomiting 20 tablet 0 04/07/2022 Active Start: 12-10-2021 End: 12-10-2021 ondansetron (ZOFRAN) injecti on 4 mg Start: 05-15-2019 ondansetron (Z OFRAN) injection 4 mg ondansetron (ZOFRAN-ODT) disintegrating tablet 4 mg (2 sources) Start: 09-08-2022 ondansetron (Z OFRAN-ODT) disintegrating tablet 4 mg Start: 12-10-2021 ondansetron (Z OFRAN-ODT) disintegrating tablet 4 mg oxyCODONE hydrochloride 5 mg oral tablet (2 sources) Opioid Agonist Start: 09-08-2022 End: 09-13-2022 take 1 tablet by mouth every six hours as needed for pain oxyCODONE (ROXICODONE) 5 MG immediate release tablet Indications: Postoperative state Take 1 tablet by mouth every 6 hours as needed for Pain for up to 5 days. Intended supply: 5 days. Take lowest dose possible to manage pain Max Daily Amount: 20 mg 20 tablet 0 09/08/2022 09/13/2022 Active Start: 09-08-2022 oxyCODONE (EVY ICODONE) immediate release tablet 5 mg pantoprazole 40 mg delayed release oral tablet (20 sources) Proton Pump Inhibitor Start: 11-08-2023 take 1 tablet by mouth twice daily pantoprazole (PROTONIX) 40 MG tablet TAKE 1 TABLET BY MOUTH TWICE A DAY 180 tablet 1 11/08/2023 Active Start: 02-20-2022 take 1 tablet by rafael th twice daily pantoprazole (PROTONIX) 40 MG tablet TAKE 1 TABLET BY MOUTH TWICE A DAY 180 tablet 1 02/20/2022 Active Start: 09-18-2021 take 1 tablet by rafael th twice daily pantoprazole (PROTONIX) 40 MG tablet TAKE 1 TABLET BY MOUTH TWICE DAILY 180 tablet 1 09/18/2021 Active Start: 04-02-2021 take 1 tablet by rafael th twice daily pantoprazole (PROTONIX) 40 MG tablet TAKE 1 TABLET BY MOUTH TWICE DAILY 180 tablet 1 04/02/2021 Active Start: 12-19-2020 take 40 mg by mouth once daily Pantoprazole Active 40 MG PO Daily December 19, 2020 12:00am Start: 10-07-2020 take 1 tablet by rafael th twice daily pantoprazole (PROTONIX) 40 MG tablet TAKE 1 TABLET BY MOUTH TWICE DAILY 180 tablet 1 10/07/2020 Active Start: 01-23-2020 take 1 tablet by rafael th twice daily pantoprazole (PROTONIX) 40 MG tablet TAKE 1 TABLET BY MOUTH TWICE DAILY FOR 30 DAYS 0 01/23/2020 Active Start: 09-11-2019 take 1 tablet by rafael th twice daily pantoprazole (PROTONIX) 20 MG tablet 1 po bid 180 tablet 1 09/11/2019 Active Start: 01-25-2019 [facility] before breakfast pantoprazole (PROTONIX) 20 MG tablet Indications: Gastroesophageal reflux disease, esophagitis presence not specified take 2 tablets by mouth every morning before breakfast 180 tablet 1 01/25/2019 Active PARoxetine hydrochloride 30 mg oral tablet (20 sources) Serotonin Reuptake Inhibitor Start: 11-08-2023 take 1 tablet by mouth once daily in the morning PARoxetine (PAXIL) 30 MG tablet Indications: Anxiety and depression TAKE 1 TABLET BY MOUTH EVERY DAY IN THE MORNING 90 tablet 1 11/08/2023 Active Start: 09-09-2022 take 30 mg by mouth once daily in the morning 30 mg, Oral, EVERY MORNING, First dose on Wed09/09/22 at 0900, Until Discontinued, Post-op Start: 02-20-2022 take 1 tablet by rafael once daily in the morning PARoxetine (PAXIL) 30 MG tablet Indications: Anxiety and depression TAKE 1 TABLET BY MOUTH EVERY DAY IN THE MORNING 90 tablet 1 02/20/2022 Active Start: 10-07-2020 take 1 tablet by rafael once daily in the morning PARoxetine (PAXIL) 30 MG tablet Indications: Anxiety and depression Take 1 tablet by mouth every morning 90 tablet 1 09/18/2021 Active Start: 04-01-2020 take 1 tablet by rafael th once daily in the morning PARoxetine (PAXIL) 30 MG tablet Indications: Anxiety and depression Take 1 tablet by mouth every morning 90 tablet 1 04/01/2020 Active Start: 09-11-2019 take 1 tablet by rafael once daily in the morning PARoxetine (PAXIL) 30 MG tablet Indications: Anxiety and depression Take 1 tablet by mouth every morning 90 tablet 1 09/11/2019 Active Start: 02-27-2019 take 1 tablet by rafael once daily in the morning PARoxetine (PAXIL) 40 MG tablet Indications: Anxiety and depression take 1 tablet by mouth every morning 90 tablet 1 02/27/2019 Active take 1.5 tablets by mouth once daily in the morning PARoxetine 20 MG tablet Take 1.5 tablets by mouth daily. 30 mg am Active phentermine hydrochloride 37.5 mg oral tablet (1 source) Sympathomimetic Amine Anorectic Start: 05-21-2021 End: 06-20-2021 take 1 tablet by mouth once daily before breakfast phentermine (ADIPEX-P) 37.5 MG tablet Indications: Morbid obesity due to excess calories (HCC) Take 1 tablet by mouth every morning (before breakfast) for 30 days. 30 tablet 0 05/21/2021 06/20/2021 Active predniSONE 50 mg oral tablet (4 sources) Start: 12-21-2021 End: 12-25-2021 take 1 tablet by mouth in the morning predniSONE (DELTASONE) 50 MG tablet Take 1 tablet by mouth in the morning for 4 days. 4 tablet 0 12/21/2021 12/25/2021 Active Start: 12-20-2021 End: 12-20-2021 predniSONE (DELTASONE) table t 50 mg Start: 03-18-2019 [facility] 2 [facility] once daily at mealtime predniSONE (DELTASONE) 20 MG tablet Indications: Acute bronchitis, unspecified organism Take 2 tablets by mouth daily x 3 days. Take with food. 6 tablet 0 03/18/2019 Active progesterone 100 mg oral capsule (2 sources) Progesterone Start: 01-05-2024 End: 01-05-2025 take 1 capsule by mouth once daily progesterone (PROMETRIUM) 100 MG CAPS capsule Indications: Endometriosis , Artificial menopause Take 1 capsule by mouth daily 90 capsule 3 01/05/2024 01/05/2025 Active Start: 11-04-2023 take 1 capsule by mo uth once daily progesterone (PROMETRIUM) 100 MG CAPS capsule Indications: Endometriosis , Artificial menopause Take 1 capsule by mouth daily 30 capsule 0 11/04/2023 Active simethicone 80 mg chewable tablet (3 sources) Start: 09-08-2022 take 1 tablet by mouth four times daily as needed simethicone (MYLICON) 80 MG chewable tablet Take 1 tablet by mouth 4 times daily as needed for Flatulence 90 tablet 0 09/08/2022 Active Start: 09-08-2022 take 80 mg by mouth every six hours as needed 80 mg, Oral, EVERY 6 HOURS PRN, Starting on Wed09/08/22 at 1254, Until Discontinued, Cramping, Post-op traMADol hydrochloride 50 mg oral tablet (1 source) Opioid Agonist Start: 12-10-2021 End: 12-10-2021 traMADol (ULTRAM) tablet 50 mg turmeric extract 500 mg oral capsule (20 sources) Turmeric (QC Isael darien Complex) 500 MG capsule Take by mouth. 0 Active take 1 capsule by mouth once [place] turmeric 500 MG CAPS Take by mouth daily 0 Active turmeric (QC ISAEL DARIEN COMPLEX) 500 MG CAPS Take by mouth daily 0 Active verapamil hydrochloride 240 mg extended release oral tablet (20 sources) Calcium Channel Johny Start: 02-03-2024 take 1 tablet by mouth once daily verapamil (CALAN SR) 240 MG extended release tablet TAKE 1 TABLET BY MOUTH EVERY DAY 90 tablet 1 02/03/2024 Active Start: 11-02-2023 take 1 tablet by rafael th once daily verapamil (CALAN SR) 240 MG extended release tablet TAKE 1 TABLET BY MOUTH EVERY DAY 90 tablet 1 11/02/2023 Active Start: 08-14-2019 take 1 tablet by rafael th once daily verapamil (CALAN SR) 240 MG extended release tablet TAKE 1 TABLET BY MOUTH EVERY DAY 90 tablet 1 02/20/2022 Active Start: 01-09-2019 [facility] 1 capsule [facility] once daily in the evening verapamil (VERELAN) 240 MG extended release capsule Indications: Essential hypertension, benign take 1 capsule by mouth every evening 90 capsule 1 01/09/2019 Active Completed/Discontinued Medications Medication Drug Class(es) Dates Sig (Normalized) Sig (Original) barium sulfate 60 % suspension 355 mL (1 source) Start: 05-18-2019 End: 05-18-2019 barium sulfate 60 % suspension 355 mL barium sulfate 700 mg tablet (1 source) Start: 05-18-2019 End: 05-18-2019 barium sulfate 700 mg tablet barium sulfate 98 % suspension 140 mL (1 source) Start: 05-18-2019 End: 05-18-2019 barium sulfate 98 % suspension 140 mL Blood Glucose Monitoring Suppl (FREESTYLE LITE) CHAS (5 sources) Start: 03-31-2019 End: 12-20-2019 Blood Glucose Monitoring Suppl (FREESTYLE LITE) CHAS CHECK BLOOD SUGAR every morning FASTING 0 03/31/2019 12/20/2019 Discontinued (LIST CLEANUP) Start: 03-31-2019 Blood Glucose Monitoring Suppl (FREESTYLE LITE) CHAS CHECK BLOOD SUGAR every morning FASTING 0 03/31/2019 Active bupivacaine hydrochloride 5 mg/ml injectable solution (10 sources) Amide Local Anesthetic Start: 08-02-2023 End: 08-02-2023 BUPivacaine (MARCAINE) 0.5 % injection 1 mL Start: 08-02-2023 End: 08-02-2023 1 mL, Intra-articular, ONCE NEEDED, 1 dose, Starting on Wed08/02/23 at 1030, Until Wed08/02/23 at 1030 Start: 12-15-2022 End: 12-15-2022 bupivacaine (MARCAINE) 0.5 % injection 1 mL Start: 10-23-2022 End: 10-23-2022 bupivacaine (MARCAINE) 0.5 % injection 1 mL Start: 08-14-2022 End: 08-14-2022 bupivacaine (MARCAINE) 0.5 % injection 1 mL Start: 06-23-2022 End: 06-23-2022 bupivacaine (MARCAINE) 0.5 % injection 1 mL calcium carbonate 500 mg chewable tablet (1 source) Start: 09-08-2022 take 1000 mg by mouth three times daily as needed 1,000 mg, Oral, 3 TIMES DAILY PRN, Starting on Wed09/08/22 at 1254, Until Discontinued, Heartburn, Post-op 1 ml dexamethasone phosphate 4 mg/ml injection (9 sources) Corticosteroid Start: 08-02-2023 End: 08-02-2023 dexAMETHasone (DECADRON) injection 4 mg Start: 08-02-2023 End: 08-02-2023 4 mg, Intra-articular, ONCE NEEDED, 1 dose, Starting on Wed08/02/23 at 1030, Until Wed08/02/23 at 1030 Start: 12-15-2022 End: 12-15-2022 dexAMETHasone (DECADRON) inj ection 4 mg Start: 10-23-2022 End: 10-23-2022 dexAMETHasone (DECADRON) inj ection 4 mg Start: 06-23-2022 End: 06-23-2022 dexAMETHasone (DECADRON) inj ection 4 mg Start: 12-20-2019 End: 12-20-2019 dexamethasone (PF) (DECADRON ) injection 10 mg dimenhyDRINATE 50 mg oral tablet (1 source) Start: 12-10-2021 End: 12-10-2021 dimenhyDRINATE (DRAMAMINE) tablet 50 mg docusate sodium 50 mg / sennosides, jail 8.6 mg oral tablet (3 sources) Start: 09-08-2022 take 2 tablets by mouth twice daily 2 tablet, Oral, 2 times daily, First dose on Wed09/08/22 at 2100, Until Discontinued, Post-op Start: 09-08-2022 take 1 tablet by rafael th once daily sennosides-docusate sodium (SENOKOT-S) 8.6-50 MG tablet Take 1 tablet by mouth daily 30 tablet 0 09/08/2022 Active 0.4 ml enoxaparin sodium 100 mg/ml prefilled syringe (1 source) Low Molecular Weight Heparin Start: 09-09-2022 inject 40 mg by subcutaneous injection twice daily 40 mg, SubCUTAneous, 2 times daily, First dose on Wed09/09/22 at 0900, Until Discontinued Indication of Use: Prophylaxis-DVT/PE Pharmacy to dose if renal insufficiency present. Post-op 2 ml fentaNYL 0.05 mg/ml injection (1 source) Opioid Agonist Start: 12-10-2021 End: 12-10-2021 fentaNYL (SUBLIMAZE) injection 50 mcg fluticasone propionate 0.05 mg/actuat metered dose nasal spray (6 sources) Corticosteroid Start: 01-31-2019 End: 05-18-2019 take 2 spray(s) nasal route once daily fluticasone (FLONASE) 50 MCG/ACT nasal spray 2 sprays by Each Nostril route daily 1 Bottle 0 01/31/2019 05/18/2019 Discontinued (LIST CLEANUP) gentamicin (GARAMYCIN) 500 mg in dextrose 5 % 250 mL IVPB (1 source) Start: 12-10-2021 End: 12-10-2021 gentamicin (GARAMYCIN) 500 mg in dextrose 5 % 250 mL IVPB glucagon (rdna) 1 mg injection (1 source) Antihypoglycemic Agent Start: 09-08-2022 inject 1 mg by subcutaneous injection every hour as needed 1 mg, SubCUTAneous, PRN, Starting on Wed09/08/22 at 1254, Until Discontinued, Low blood sugar, Blood glucose LESS THAN 70 mg/dL and patient NOT ALERT or NPO and does not have IV access. After administration, attempt intravenous access and start dextrose 10% at 100 mL/hr. Repeat blood glucose in 15 minutes x 2 and notify provider. Post-op 1 ml HYDROmorphone hydrochloride 1 mg/ml cartridge (2 sources) Opioid Agonist Start: 09-08-2022 End: 09-08-2022 HYDROmorphone (DILAUDID) 1 MG/ML injection Start: 09-08-2022 End: 09-08-2022 HYDROmorphone (DILAUDID) inj ection 0.5 mg insulin lispro 100 unt/ml injectable solution (2 sources) Insulin Analog Start: 09-08-2022 0-4 Units, Sub CUTAneous, NIGHTLY, First dose on Wed09/08/22 at 2100, Until Discontinued If continuous tube feedings/TPN/NPO, give correction dose based on result, no reduction in dose. If eating or bolus tube feeding: Corrective Bedtime Algorithm Glucose: Dose: 70-299 No Insulin 300-349 4 Units Over 349 4 Units and notify physician Post-op Start: 09-08-2022 0-8 Units, Sub CUTAneous, 3 TIMES DAILY WITH MEALS, First dose on Wed09/08/22 at 1315, Until Discontinued Medium Dose Corrective Algorithm Glucose: Dose: 70-199 No Insulin 200-249 2 Units 250-299 4 Units 300-349 6 Units Over 349 8 Units and notify physician Post-op iopamidol (ISOVUE-370) 76 % injection 75 mL (1 source) Start: 09-23-2022 End: 09-23-2022 iopamidol (ISOVUE-370) 76 % injection 75 mL 1 ml ketorolac tromethamine 30 mg/ml cartridge (13 sources) Nonsteroidal Anti-inflammatory Drug, Cyclooxygenase Inhibitor Start: 12-24-2023 End: 12-24-2023 ketorolac (TORADOL) injection 30 mg Start: 09-08-2022 End: 09-09-2022 30 mg, IntraVENous, EVERY 6 HOURS, 3 doses, First dose on Wed09/08/22 at 1215, Last dose on Wed09/09/22 at 0015 Do not administer for more than 5 days. Post-op Start: 07-30-2022 End: 07-30-2023 take 1 tablet by mouth every six hours as needed for pain ketorolac (TORADOL) 10 MG tablet Indications: Left ovarian cyst Take 1 tablet by mouth every 6 hours as needed for Pain 20 tablet 0 07/30/2022 09/07/2022 Discontinued (LIST CLEANUP) Start: 12-10-2021 End: 12-11-2021 ketorolac (TORADOL) injectio n 30 mg Start: 12-20-2019 End: 12-20-2019 ketorolac (TORADOL) injectio n 30 mg 10 ml lidocaine hydrochloride 10 mg/ml injection (10 sources) Antiarrhythmic, Amide Local Anesthetic Start: 08-02-2023 End: 08-02-2023 Lidocaine (XYLOCAINE) 10 mg/mL injection 4 mL Start: 08-02-2023 End: 08-02-2023 4 mL, Intra-articular, ONCE NEEDED, 1 dose, Starting on Wed08/02/23 at 1030, Until Wed08/02/23 at 1030 Start: 12-15-2022 End: 12-15-2022 Lidocaine (XYLOCAINE) 10 mg/ mL injection 4 mL Start: 10-23-2022 End: 10-23-2022 Lidocaine (XYLOCAINE) 10 mg/ mL injection 1 mL Start: 08-14-2022 End: 08-14-2022 Lidocaine (XYLOCAINE) 10 mg/ mL injection 4 mL Start: 06-23-2022 End: 06-23-2022 Lidocaine (XYLOCAINE) 10 mg/ mL injection 1 mL magnesium hydroxide 80 mg/ml oral suspension (1 source) Start: 09-09-2022 take 30 mL by mouth once daily 30 mL, Oral, DAILY, First dose on Wed09/09/22 at 0900, Until Discontinued, Post-op melatonin 1 mg oral tablet (20 sources) Start: 09-08-2022 take 3 mg by mouth once daily as needed 3 mg, Oral, NIGHTLY PRN, Starting on Wed09/08/22 at 2100, Until Discontinued, Sleep, Post-op take 3 capsules by mouth once [place] Melatonin 1 MG CAPS Take 3 mg by mouth nightly Active norethindrone 0.35 mg oral tablet (20 sources) Start: 11-28-2021 End: 12-10-2021 take 1 tablet by mouth once daily norethindrone (MICRONOR) 0.35 MG tablet Indications: Secondary dysmenorrhea Take 1 tablet by mouth daily 28 tablet 1 11/28/2021 12/10/2021 Discontinued (Stop Taking at Discharge) Start: 05-21-2021 norethindrone (MICRONOR) 0.35 MG tablet Start: 07-23-2016 take 1 tablet by rafael th once daily SHAROBEL 0.35 MG tablet Take 1 tablet by mouth daily 0 07/23/2016 Active 2 ml orphenadrine citrate 30 mg/ml injection (1 source) Muscle Relaxant Start: 12-20-2019 End: 12-20-2019 orphenadrine (NORFLEX) injection 30 mg 2 ml prochlorperazine 5 mg/ml injection (1 source) Phenothiazine Start: 09-08-2022 10 mg, IntraVE Nous, EVERY 6 HOURS PRN, Starting on Wed09/08/22 at 1254, Until Discontinued, Nausea If administering IV push, administer at a maximum rate of 5 mg/minute. Post-op sodium bicard-citric acid-simethicone (EZ GAS II) packet 1 each (1 source) Start: 05-18-2019 End: 05-18-2019 sodium bicard-citric acid-simethicone (EZ GAS II) packet 1 each 20 ml sodium chloride 9 mg/ml injection (20 sources) Start: 08-02-2023 End: 08-02-2023 Sodium chloride (PF) 0.9 % injection 5 mL Start: 08-02-2023 End: 08-02-2023 5 mL, Intra-articular, ONCE NEEDED, 1 dose, Starting on Wed08/02/23 at 1030, Until Wed08/02/23 at 1030 Start: 07-02-2023 End: 07-02-2023 Sodium chloride 0.9% IV solu tion Start: 02-11-2023 End: 02-11-2023 Sodium chloride 0.9% IV solu tion 1,000 mL Start: 12-15-2022 End: 12-15-2022 Sodium chloride (PF) 0.9 % injection 5 mL Start: 09-08-2022 take 1 dose intraven ously twice daily 5-40 mL, IntraVENous, EVERY 12 HOURS SCHEDULED (2 times per day), First dose on Wed09/08/22 at 2100, Until Discontinued For Line Patency: Peripheral IV = 5 mL; Midline or Central Line = 10 mL/lumen. If following IV push medication, administer flush at same rate as the IV push. Flush volume is determined by type of infusion therapy being given. For non-viscous solutions use: Peripheral IV = 5 mL Midline or Central Line = 10 mL/lumen For viscous solutions (i.e. blood components, parenteral nutrition, contrast media, or after obtaining blood sample) use: Peripheral IV = 10 mL Midline or Central Line = 20 mL/lumen Post-op Start: 09-08-2022 IntraVENous, a t 5-250 mL/hr, PRN, if patient receiving piggyback infusions and maintenance fluids are not ordered OR KVO fluids to protect IV site / prevent frequent line interruptions/ long duration, Starting on Wed09/08/22 at 1254 For piggyback infusion, administer at same rate as piggyback for a total of 25 mL. Enter 25 mL into dose field and piggyback rate into rate field of order. If piggyback is infusing at a rate less than 100 mL/hr, enter 25 mL into dose field and 100 mL/hr into rate field of order. For KVO fluids, enter rate of 20 mL/hr or less into rate field of order. Post-op Start: 09-08-2022 take 5-40 mL intrave nously once as needed 5-40 mL, IntraVENous, PRN, Starting on Wed09/08/22 at 1254, Until Discontinued, Line Care, After every IV line use For Line Patency: Peripheral IV = 5 mL; Midline or Central Line = 10 mL/lumen. If following IV push medication, administer flush at same rate as the IV push. Flush volume is determined by type of infusion therapy being given. For non-viscous solutions use: Peripheral IV = 5 mL Midline or Central Line = 10 mL/lumen For viscous solutions (i.e. blood components, parenteral nutrition, contrast media, or after obtaining blood sample) use: Peripheral IV = 10 mL Midline or Central Line = 20 mL/lumen Post-op Start: 09-08-2022 End: 09-09-2022 IntraVENous, at 125 mL/hr, CONTINUOUS, Starting on Wed09/08/22 at 1315, Post-op Start: 08-14-2022 End: 08-14-2022 Sodium chloride (PF) 0.9 % injection 5 mL Start: 12-10-2021 sodium chlorid e flush 0.9 % injection 5-40 mL Start: 12-10-2021 sodium chlorid e flush 0.9 % injection 5-40 mL Start: 12-10-2021 0.9 % sodium c hloride infusion Start: 12-10-2021 sodium chlorid e flush 0.9 % injection 5-40 mL Start: 05-23-2020 sodium chlorid e flush 0.9 % injection 10 mL Start: 05-09-2020 sodium chlorid e flush 0.9 % injection 10 mL Start: 05-15-2019 sodium chlorid e flush 0.9 % injection 10 mL Start: 05-15-2019 sodium chlorid e flush 0.9 % injection 10 mL sucralfate 1000 mg oral tablet (7 sources) Aluminum Complex Start: 09-11-2019 End: 03-07-2020 take 1 tablet by mouth four times daily sucralfate (CARAFATE) 1 GM tablet Take 1 tablet by mouth 4 times daily 120 tablet 3 09/11/2019 03/07/2020 Discontinued (Therapy completed) Start: 05-15-2019 take 1 tablet by rafael th four times daily sucralfate (CARAFATE) 1 GM tablet Take 1 tablet by mouth 4 times daily 120 tablet 3 05/15/2019 Active Start: 05-15-2019 End: 05-18-2019 take 10 mL by mouth four times daily sucralfate (CARAFATE) 1 GM/10ML suspension Take 10 mLs by mouth 4 times daily 420 mL 1 05/15/2019 05/18/2019 Discontinued (LIST CLEANUP) traZODone hydrochloride 50 mg oral tablet (9 sources) Serotonin Reuptake Inhibitor Start: 06-12-2019 End: 03-07-2020 take 1 tablet by mouth once daily in the evening traZODone (DESYREL) 50 MG tablet Indications: Anxiety and depression take 1 tablet by mouth every evening 90 tablet 1 06/12/2019 03/07/2020 Discontinued Start: 12-16-2018 take 1 tablet by rafael th once daily in the evening traZODone (DESYREL) 50 MG tablet Indications: Anxiety and depression take 1 tablet by mouth every evening 90 tablet 1 12/16/2018 Active 1 ml triamcinolone acetonide 40 mg/ml injection (10 sources) Corticosteroid Start: 08-02-2023 End: 08-02-2023 triamcinolone (KENALOG-40) injection 2 mL Start: 08-02-2023 End: 08-02-2023 2 mL, Intra-articular, ONCE NEEDED, 1 dose, Starting on Wed08/02/23 at 1030, Until Wed08/02/23 at 1030 Start: 12-15-2022 End: 12-15-2022 triamcinolone (KENALOG-40) i njection 2 mL Start: 10-23-2022 End: 10-23-2022 triamcinolone (KENALOG-40) i njection 2 mL Start: 08-14-2022 End: 08-14-2022 triamcinolone (KENALOG-40) i njection 2 mL Start: 06-23-2022 End: 06-23-2022 triamcinolone (KENALOG-40) i njection 80 mg Problems Active Problems Problem Classification Problem Date Documented Da te Episodic/Chronic Acute bronchitis (1 source) Acute bronchitis; Translations: [Acute bronchitis, unspecified organism] Episodic Anxiety disorders (20 sources) Mixed anxiety and depressive disorder; Translations: [Anxiety disorder, unspecified] Onset: 8 09-16-2017 Chronic Complications of surgical procedures or medical care (1 source) Postoperative complication; 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] Episodic Deficiency and other anemia (1 source) Hemoglobin low; Translations: [Decreased hemoglobin] Chronic Deficiency and other anemia (3 sources) Iron deficiency anemia due to blood loss; Translations: [Iron deficiency anemia secondary to blood loss (chronic)] Chronic Diabetes mellitus without complication (20 sources) Type 2 diabetes mellitus without complication; Translations: [Type 2 diabetes mellitus without complications] Onset: 9 03-31-2019 Chronic Diabetes mellitus without complication (1 source) Prediabetes; Translations: [Prediabetes] Episodic E Codes: Adverse effects of medical drugs (1 source) Adverse reaction to drug; Translations: [Adverse effect of unspecified drugs, medicaments and biological substances, initial encounter] Episodic Endometriosis (3 sources) Endometriosis (clinical); Translations: [Endometriosis, unspecified] Onset: 3 09-15-2022 Chronic Esophageal disorders (20 sources) Gastroesophageal reflux disease; Translations: [Gastro-esophageal reflux disease without esophagitis] Onset: 4 03-02-2014 Chronic Essential hypertension (20 sources) Benign essential hypertension; Translations: [Essential (primary) hypertension] Onset: 2 09-28-2011 Chronic Immunizations and screening for infectious disease (2 sources) Suspected disease caused by 2019-nCoV; Translations: [Suspected COVID-19 virus infection] Episodic Menstrual disorders (20 sources) Dysmenorrhea; Translations: [Dysmenorrhea, unspecified] Chronic Osteoarthritis (3 sources) Osteoarthritis of right knee joint; Translations: [Osteoarthritis of right knee] 05-23-2020 Other acquired deformities (2 sources) Varus deformity, not elsewhere classified, right knee; Translations: [Varus deformity, not elsewhere classified, right knee] Onset: 4 Episodic Other acquired deformities (2 sources) Varus deformity, not elsewhere classified, left knee; Translations: [Varus deformity, not elsewhere classified, left knee] Onset: 4 Episodic Other aftercare (4 sources) Encounter for surgical aftercare following surgery on the circulatory system; Translations: [ENC SURG [facility] FLW SURG CIRC SYS] Onset: 1 Episodic Other non-traumatic joint disorders (20 sources) Arthritis of left knee; Translations: [Unilateral primary osteoarthritis, left knee] Onset: 4 10-05-2013 Chronic Other non-traumatic joint disorders (4 sources) Pain in right ankle and joints of right foot; Translations: [PAIN IN RIGHT ANKLE] Onset: 1 Episodic Other non-traumatic joint disorders (2 sources) Pain in unspecified hip; Translations: [Pain in unspecified hip] Onset: 3 Episodic Other non-traumatic joint disorders (1 source) Hip pain; Translations: [Pain in left hip] 10-23-2022 Episodic Other non-traumatic joint disorders (2 sources) Pain in right hip joint; Translations: [Pain in right hip] Onset: 4 08-10-2023 Episodic Other non-traumatic joint disorders (1 source) Pain in right hip; Translations: [Pain in right hip] Onset: 4 Episodic Other non-traumatic joint disorders (15 sources) Arthritis of left knee; Translations: [Arthritis of left knee] Onset: 4 10-05-2013 Other nutritional; endocrine; and metabolic disorders (13 sources) Morbid obesity; Translations: [Morbid (severe) obesity due to excess calories] Onset: 3 08-13-2022 Chronic Other nutritional; endocrine; and metabolic disorders (2 sources) Morbid (severe) obesity due to excess calories; Translations: [Morbid (severe) obesity due to excess calories] Onset: 3 Chronic Other nutritional; endocrine; and metabolic disorders (2 sources) Morbid (severe) obesity with alveolar hypoventilation; Translations: [Morbid (severe) obesity with alveolar hypoventilation] Onset: 4 Chronic Other nutritional; endocrine; and metabolic disorders (2 sources) Body mass index (BMI) 50.0-59.9, adult; Translations: [Body mass index (BMI) 50.0-59.9, adult] Onset: 4 Chronic Other nutritional; endocrine; and metabolic disorders (1 source) Weight gain; Translations: [Weight gain] Episodic Other screening for suspected conditions (not mental disorders or infectious disease) (1 source) Encounter for screening mammogram for malignant neoplasm of breast; Translations: [Encounter for screening mammogram for malignant neoplasm of breast] Onset: 4 Episodic Other skin disorders (20 sources) H/O: skin recipient; 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] Onset: 3 02-10-2013 Chronic Other skin disorders (2 sources) Postoperative state; 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] Onset: 3 02-10-2013 Chronic Other skin disorders (1 source) Eruption; Translations: [Rash and other nonspecific skin eruption] Episodic Other upper respiratory infections (1 source) Viral upper respiratory tract infection; Translations: [Viral URI with cough] Episodic Ovarian cyst (1 source) Cyst of left ovary; Translations: [Unspecified ovarian cyst, left side] Episodic Phlebitis; thrombophlebitis and thromboembolism (5 sources) Phlebitis and thrombophlebitis of superficial vessels of left lower extremity; Translations: [Phlebitis and thrombophlebitis of superficial vessels of right lower extremity] Onset: 1 Episodic Pneumonia (except that caused by tuberculosis or sexually transmitted disease) (1 source) Infective pneumonia; Translations: [Pneumonia, unspecified organism] Episodic Residual codes; unclassified (4 sources) Localized edema; Translations: [LOCALIZED EDEMA] Onset: 1 Episodic Residual codes; unclassified (2 sources) Patient encounter status; Translations: [Encounter for procedure for purposes other than remedying health state, unspecified] 02-11-2023 Episodic Spondylosis; intervertebral disc disorders; other back problems (10 sources) Bilateral osteoarthritis of sacroiliac joints; Translations: [Sacroiliitis, not elsewhere classified] Onset: 3 Chronic Unclassified (2 sources) Patient encounter status; Translations: [Screening for cardiovascular condition] Unclassified (20 sources) Body mass index 40+ - severely obese; Translations: [Adult body mass index 40 and over] Onset: 2 10-29-2021 Unclassified (1 source) Post endometrial ablation syndrome; 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] Onset: 3 Unclassified (1 source) Vertebrogenic low back pain; Translations: [Vertebrogenic low back pain] Onset: 3 Past or Other Problems Problem Classification Problem Date Documented Da te Episodic/Chronic Abdominal hernia (20 sources) Hiatal hernia; Translations: [Diaphragmatic hernia without obstruction or gangrene] Onset: 03-02-2014 03-02-2014 Episodic Abdominal pain (2 sources) Pain in female pelvis; Translations: [Pelvic and perineal pain] Onset: 09-08-2022 Episodic Allergic reactions (20 sources) Allergic disposition; Translations: [Allergy status to unspecified drugs, medicaments and biological substances status] Onset: 09-28-2011 09-28-2011 Episodic Chronic ulcer of skin (20 sources) Skin ulcer; Translations: [Ankle ulcer] Onset: 01-23-2013 Resolved: 02-04-2023 01-23-2013 Chronic Other connective tissue disease (18 sources) Fibromyalgia; Translations: [Fibromyalgia] Onset: 05-13-2022 05-13-2022 Episodic Other diseases of veins and lymphatics (20 sources) Peripheral venous insufficiency; Translations: [Venous insufficiency (chronic) (peripheral)] Onset: 10-29-2021 10-29-2021 Episodic Other gastrointestinal disorders (5 sources) Pelvic mass; Translations: [Intra-abdominal and pelvic swelling, mass and lump, unspecified site] Onset: 09-08-2022 Resolved: 09-15-2022 Episodic Residual codes; unclassified (20 sources) FH: Thrombosis; Translations: [Family history of ischemic heart disease and other diseases of the circulatory system] Onset: 10-29-2021 Resolved: 10-29-2021 10-29-2021 Episodic Residual codes; unclassified (6 sources) Postoperative state; Translations: [Other specified postprocedural states] Onset: 09-07-2022 Episodic Residual codes; unclassified (1 source) Other specified postprocedural states; Translations: [Other specified postprocedural states] Onset: 09-08-2022 Episodic Residual codes; unclassified (2 sources) Encounter for procedure for purposes other than remedying health state, unspecified; Translations: [Encounter for procedure for purposes other than remedying health state, unspecified] Onset: 02-11-2023 Episodic Spondylosis; intervertebral disc disorders; other back problems (20 sources) Acute back pain with sciatica; Translations: [Chronic low back pain] Onset: 08-10-2023 Episodic Unclassified (1 source) Vertebrogenic low back pain; Translations: [Vertebrogenic low back pain] Onset: 01-08-2023 Varicose veins of lower extremity (20 sources) Skin ulcer; Translations: [Varicose veins of unspecified lower extremity with ulcer of unspecified site] Onset: 01-23-2013 Resolved: 02-04-2023 01-23-2013 Episodic Results Test Name Value Interpretation Reference Range Facility [facility] DIGITAL SCREEN AMBROCIO Andersen 03-20-2024 [facility] DIGITAL SCREEN BILATERAL EXAMINATION: SCREENING DIGITAL BILATERAL MAMMOGRAM WITH TOMOSYNTHESIS, 03/17/2024 TECHNIQUE: Screening mammography was performed with tomosynthesis including MLO and CC views of the bilateral breasts. Computer aided detection was used for the interpretation of this exam. COMPARISON: December 03, 2022 and November 14, 2019 HISTORY: Screening. FINDINGS: The breasts are almost entirely fatty. There is no dominant mass, architectural distortion or concerning grouping of microcalcification in either breast. IMPRESSION: No mammographic evidence of malignancy BIRADS: BIRADS - CATEGORY 1 Negative. Normal interval follow-up is recommended in 12 months. OVERALL ASSESSMENT - NEGATIVE A letter of notification will be sent to the patient regarding the results. The [employer] recommends annual mammograms for women 40 years and older. Performing Facility: [place] [id number] Interpreted by: Carlitos Brown DO Signed by: Carlitos Brown DO 03/20/24 Final result Normal [facility] Follow-Upon 02-14-2024 Follow-Up [id number] Sarah Harris 1975 F Date Provider Department Center 02/14/2024 [facility] Family History Family history unknown: Yes Level of Service:92717 HI OFFICE/OUTPATIENT ESTABLISHED MOD MDM 30 MIN () Reason for Visit and Comments: Follow-up [882734] - surgical evaluation - bone on bone, when she walks feels like her knees are crunching. Pain [136] - surgical evaluation - bone on bone, when she walks feels like her knees are crunching. New Patient [632] - surgical evaluation - bone on bone, when she walks feels like her knees are crunching. Normal [facility] Metabolic Profon 2023 Albumin [Mass/Vol] 3.9 g/dL Normal 3.5-5.2 [facility] Comment on above: Performed By: #### C P #### [facility] [address] [place], [place] [id number] [employer]namental Metal Worker: Glenn Flores MD #### LIPR, GLYHGB #### [address] [id number] Ornamental Metal Worker: Aramis Hoffmann MD Alkaline Phos 107 U/L High 35-104 [facility] Comment on above: Performed By: #### C P #### [facility] [address] [place], [place] [id number] [employer]namental Metal Worker: Glenn Flores MD #### LIPR, GLYHGB #### [address] [address] [employer]namental Metal Worker: Aramis Hoffmann MD ALT [Catalytic activity/Vol] 15 U/L Normal 5-33 [facility] Comment on above: Performed By: #### C P #### [facility] [address] [place], [place] [id number] Ornamental Metal Worker: Glenn Flores MD #### LIPSalomon, GLYHGB #### [address] [address] Ornamental Metal Worker: Aramis Hoffmann MD Anion gap [Moles/Vol] 15 mmol/L Normal 9-17 [facility] Comment on above: Performed By: #### C P #### [facility] [address] [place], [place] [id number] Ornamental Metal Worker: Glenn Flores MD #### LIPR, GLYHGB #### [address] [address] Ornamental Metal Worker: Aramis Hoffmann MD AST [Catalytic activity/Vol] 17 U/L Normal <32 [facility] Comment on above: Performed By: #### C P #### [facility] [address] [place], [place] [id number] Ornamental Metal Worker: Glenn Flores MD #### ADOLFO GLYHGB #### [place] [address] [place], [place] [id number] Ornamental Metal Worker: Aramis Hoffmann MD Bilirubin [Mass/Vol] 0.3 mg/dL Normal 0.3-1.2 [facility] Comment on above: Performed By: #### C P #### [facility] [address] [place], [place] [id number] Ornamental Metal Worker: Glenn Flores MD #### ADOLFO GLYHGB #### [address] [id number] Ornamental Metal Worker: Aramis Hoffmann MD BUN/CRE Ratio 10 Normal 9-20 [facility] Comment on above: Performed By: #### C P #### [facility] [address] [place], [place] [id number] Ornamental Metal Worker: Glenn Flores MD #### ADOLFO GLYHGB #### [address] [id number] Ornamental Metal Worker: Aramis Hoffmann MD Calcium [Mass/Vol] 9.7 mg/dL Normal 8.6-10.4 [facility] Comment on above: Performed By: #### C P #### [facility] [address] [place] [address] Ornamental Metal Worker: Glenn Flores MD #### LIPSalomon, GLYHGB #### [address] [id number] Ornamental [employer] Worker: Aramis Hoffmann MD Chloride [Moles/Vol] 97 mmol/L Low 98-107 [facility] Comment on above: Performed By: #### C P #### [facility] [address] [place], [place] [id number] Ornamental Metal Worker: Glenn Flores MD #### LIPR, GLYHGB #### [facility] [address] [place], [place] [phone] Ornamental Metal Worker: Aramis Hoffmann MD CO2 [Moles/Vol] 23 mmol/L Normal 20-31 [facility] Comment on above: Performed By: #### C P #### [facility] [address] [place] [address] Ornamental Metal Worker: Glenn Flores MD #### LIPSalomon, GLYHGB #### [facility] [address] [place], [place] [phone] Ornamental Metal Worker: Aramis Hoffmann MD Creatinine [Mass/Vol] 0.9 mg/dL Normal 0.5-0.9 [facility] Comment on above: Performed By: #### C P #### [facility] [address] [place] [address] Ornamental Metal Worker: Glenn Flores MD #### LIPR, GLYHGB #### [facility] [address] [place], [place] [phone] Ornamental Metal Worker: Aramis Hoffmann MD GFR/1.73 sq M.predicted among non-blacks MDRD (S/P/Bld) [Vol rate/Area] 79 mL/min/{1.73_m2} Normal >[address] [facility] Comment on above: Result Comment: These results are not intended for use in patients <18 years of age. eGFR results are calculated without a race factor using the 2020 CKD-EPI equation. Careful clinical correlation is recommended, particularly when comparing to results calculated using previous equations. The CKD-EPI equation is less accurate in patients with extremes of muscle mass, extra-renal metabolism of creatine, excessive creatine ingestion, or following therapy that affects renal tubular secretion. Performed By: #### C P #### [facility] [address] [place] [address] Ornamental Metal Worker: Glenn Flores MD #### LIPR, GLYHGB #### [facility] [address] [place] [address] Ornamental Metal Worker: Aramis Hoffmann MD Glucose [Mass/Vol] 111 mg/dL High 70-99 [facility] Comment on above: Performed By: #### C P #### [facility] [address] [place] [address] Ornamental Metal Worker: Glenn Flores MD #### LIPR, GLYHGB #### [facility] [address] [place] [address] Ornamental Metal Worker: Aramis Hoffmann MD Potassium [Moles/Vol] 4.1 mmol/L Normal 3.7-5.3 [facility] Comment on above: Performed By: #### C P #### [facility] [address] [place], [place] [phone] Ornamental Metal Worker: Glenn Flores MD #### LIPR, GLYHGB #### [facility] [address] [place] [address] Ornamental Metal Worker: Aramis Hoffmann MD Protein [Mass/Vol] 7.6 g/dL Normal 6.4-8.3 [facility] Comment on above: Performed By: #### C P #### [facility] [address] [place] [address] Ornamental Metal Worker: Glenn Flores MD #### LIPR, GLYHGB #### [facility] [address] [place] [address] Ornamental Metal Worker: Aramis Hoffmann MD Sodium [Moles/Vol] 135 mmol/L Normal 135-144 [facility] Comment on above: Performed By: #### C P #### [facility] [address] [place] [address] Ornamental Metal Worker: Glenn Flores MD #### LIPR, GLYHGB #### [facility] [address] [place] [id number] Ornamental Metal Worker: Aramis Hoffmann MD Urea nitrogen [Mass/Vol] 9 mg/dL Normal 6-20 [facility] Comment on above: Performed By: #### C P #### [facility] [address] [place], [place] [phone] Ornamental Metal Worker: Glenn Flores MD #### ADOLFO GLYHGB #### [place] [address] [place], [place] [phone] Ornamental Metal Worker: Aramis Hoffmann MD Hemoglobin A1Con 02-02-2024 Glucose [Mass/Vol] 143 mg/dL Normal [facility] Comment on above: Result Comment: The ADA and AACC recommend providing the estimated average glucose result to permit better patient understanding of their HBA1c result. Performed By: #### C P #### [facility] [address] [place], [place] [phone] Ornamental Metal Worker: Glenn Flores MD #### ADOLFO GLYHGB #### [place] [address] [place], [place] [address] Ornamental Metal Worker: Aramis Hoffmann MD HbA1c (Bld) [Mass fraction] 6.6 % High 4.0-6.0 [facility] Comment on above: Performed By: #### C P #### [facility] [address] [place], [place] [address] Ornamental Metal Worker: Glenn Flores MD #### DAOLFO GLYHGB #### [facility] [address] [place], [place] [phone] Ornamental Metal Worker: Aramis Hoffmann MD Lipid Profileon 02-02-2024 Cholesterol [Mass/Vol] 165 mg/dL Normal 0-199 [facility] Comment on above: Result Comment: Cholesterol Guidelines: <200 Desirable 200-240 Borderline >240 Undesirable Performed By: #### C P #### [facility] [address] [place], [place] [phone] Ornamental Metal Worker: Glenn Flores MD #### LIPR, GLYHGB #### [facility] [employer] [address] [place], [place] [phone] Ornamental Metal Worker: Aramis Hoffmann MD Cholesterol in HDL [Mass/Vol] 40 mg/dL Low >40 [facility] Comment on above: Result Comment: HDL Guidelines: <40 Undesirable 40-59 Borderline >59 Desirable Performed By: #### C P #### [facility] [address] [place], [place] [address] Ornamental Metal Worker: Glenn Flores MD #### LIPR, GLYHGB #### [place] [address] [place] [address] Ornamental Metal Worker: Aramis Hoffmann MD Cholesterol in LDL [Mass/Vol] 85 mg/dL Normal 0-100 [facility] Comment on above: Result Comment: LDL Guidelines: <100 Desirable 100-129 Near to/above Desirable 130-159 Borderline >159 Undesirable Direct (measured) LDL and calculated LDL are not interchangeable tests. Performed By: #### C P #### [facility] [address] [place], [place] [phone] Ornamental Metal Worker: Glenn Flores MD #### LIPSalomon GLYHGB #### [facility] [address] [place] [address] Ornamental Metal Worker: Aramis Hoffmann MD Cholesterol in VLDL [Mass/Vol] 40 mg/dL Normal [facility] Comment on above: Performed By: #### C P #### [facility] [address] [place], [place] [phone] Ornamental Metal Worker: Glenn Flores MD #### LIPSalomon, GLYHGB #### [id number] [place] [address] Ornamental Metal Worker: Aramis Hoffmann MD Cholesterol.total/Chol esterol in HDL [Mass ratio] 4.0 {ratio} Normal [facility] Comment on above: Performed By: #### C P #### [facility] [address] [place], [place] [id number] Ornamental Metal Worker: Glenn Flores MD #### LIPR, GLYHGB #### [facility] Center[facility] [address] [place], [place] [id number] Ornamental Metal Worker: Aramis Hoffmann MD Triglyceride [Mass/Vol] 202 mg/dL High <150 [facility] Comment on above: Result Comment: Triglyceride Guidelines: <150 Desirable 150-199 Borderline 200-499 High >499 Very high Based on AHA Guidelines for fasting triglyceride, February 2012. Performed By: #### C P #### [facility] [address] [place], [place] [id number] Ornamental Metal Worker: Glenn Flores MD #### LIPSalomon, GLYHGB #### [facility] [employer] [address] [place], [place] [id number] Ornamental Metal Worker: Aramis Hoffmann MD Office Visiton 01-07-2024 Follow-up visit [id number] Sarah Harris 1975 F Date Provider Department Center 01/07/2024 Violeta-RICARDO VIVEROS MP [facility] Family History Family history unknown: Yes Level of Service:27640 HI OFFICE/OUTPATIENT NEW LOW MDM 30 MINUTES Reason for Visit and Comments: Pain [136] Normal [facility] XR KNEE RIGHT (3 VIEWS)on XR KNEE RIGHT (3 VIEWS) EXAMINATION: THREE XRAY VIEWS OF THE RIGHT KNEE 12/24/2023 10:47 am COMPARISON: None. HISTORY: ORDERING SYSTEM PROVIDED HISTORY: injury TECHNOLOGIST PROVIDED HISTORY: injury FINDINGS: No acute fracture or dislocation is identified. Severe tricompartmental osteoarthritis. No joint effusion or erosion is present. IMPRESSION: 1. No acute fracture or dislocation. 2. Severe tricompartmental osteoarthritis. Interpreted by: Glenn Mendez MD Signed by: Glenn Mendez MD 12/24/23 Final result Normal [facility] XR Knee - right 3 Viewson 1. No acute fracture or dislocation. 2. Severe tricompartmental osteoarthritis. [facility] RIS CONSOLIDATED EXAMINATION: THREE XRAY VIEWS OF THE RIGHT KNEE 12/24/2023 10:47 am COMPARISON: None. HISTORY: ORDERING SYSTEM PROVIDED HISTORY: injury TECHNOLOGIST PROVIDED HISTORY: injury FINDINGS: No acute fracture or dislocation is identified. Severe tricompartmental osteoarthritis. No joint effusion or erosion is present. [facility] Glenn Jackson MD - 12/24/2023 EXAMINATION: THREE XRAY VIEWS OF THE RIGHT KNEE 12/24/2023 10:47 am COMPARISON: None. HISTORY: ORDERING SYSTEM PROVIDED HISTORY: injury TECHNOLOGIST PROVIDED HISTORY: injury FINDINGS: No acute fracture or dislocation is identified. Severe tricompartmental osteoarthritis. No joint effusion or erosion is present. IMPRESSION: 1. No acute fracture or dislocation. 2. Severe tricompartmental osteoarthritis. [facility] Radiology Study observation (narrative) [facility] [employer] XR Knee - right 3 ViewsOrder ed By: Glenn Mendez on 12-24-2023 [facility] Work Phone: ANION GAPon 10-22-2023 Anion gap [Moles/Vol] 8.0 mmol/L Normal 8.0-16.0 [facility] Comment on above: Result Comment: ANIO N GAP = Sodium -(Chloride + CO2) Performed By: #### H H, BMP, ANION, EGFR1 #### [employer] [address] [place] [address] BASIC METABOL PANELon 2023 Calcium [Mass/Vol] 8.5 mg/dL Normal 8.5-10.5 [facility] Comment on above: Performed By: #### H H, BMP, ANION, EGFR1 #### [employer] [address] [place] [address] Chloride [Moles/Vol] 100 mmol/L Normal 98-111 [facility] Comment on above: Performed By: #### H H, BMP, ANION, EGFR1 #### [employer] [address] [place] [address] CO2 [Moles/Vol] 31 mmol/L Normal 23-33 [facility] Comment on above: Performed By: #### H H, BMP, ANION, EGFR1 #### [employer] [address] [place] [address] Creatinine [Mass/Vol] 0.6 mg/dL Normal 0.4-1.2 [facility] Comment on above: Performed By: #### H H, BMP, ANION, EGFR1 #### [facility] [address] [place] [address] Glucose [Mass/Vol] 110 mg/dL High 70-108 [facility] Comment on above: Performed By: #### H H, BMP, ANION, EGFR1 #### [facility] [address] [place] [address] Potassium [Moles/Vol] 4.3 mmol/L Normal 3.5-5.2 [facility] Comment on above: Performed By: #### H H, BMP, ANION, EGFR1 #### [facility] [address] [place] [address] Sodium [Moles/Vol] 139 mmol/L Normal 135-145 [facility] Comment on above: Performed By: #### H H, BMP, ANION, EGFR1 #### [facility] [address] [place] [address] Urea nitrogen [Mass/Vol] 8 mg/dL Normal 7-22 [facility] Comment on above: Performed By: #### H H, BMP, ANION, EGFR1 #### [facility] [employer] [address] [place] [address] GFR, ESTIMATEDon 10-22-2023 GFR/1.73 sq M.predicted MDRD (S/P/Bld) [Vol rate/Area] mL/min/{1.73_m2} Normal >60 [facility] Comment on above: Result Comment: Pedana atric calculator link https://www.kidney.org/professionals/kdoqi/gfr_calculatorped Effective Mar 02, 2022 These results are not intended for use in patients <18 years of age. eGFR results are calculated without a race factor using the 2020 CKD-EPI equation. Careful clinical correlation is recommended, particularly when comparing to results calculated using previous equations. The CKD-EPI equation is less accurate in patients with extremes of muscle mass, extra-renal metabolism of creatinine, excessive creatine ingestion, or following therapy that affects renal tubular secretion. Performed By: #### H H, BMP, ANION, EGFR1 #### [place] [address] GLUCOSE POCon 10-22-2023 Glucose [Mass/Vol] 114 mg/dL High 70-108 [facility] Comment on above: Performed By: #### P OCGL #### [place] [address] Glucose [Mass/Vol] 107 mg/dL Normal 70-108 [facility] Comment on above: Performed By: #### P OCGL #### [place] [id number] HGB,HCTon 10-22-2023 Hematocrit (Bld) [Volume fraction] 33.7 % Low 37.0-47.0 [facility] Comment on above: Performed By: #### H H, BMP, ANION, EGFR1 #### [place] [address] Hemoglobin (Bld) [Mass/Vol] 10.1 g/dL Low 12.0-16.0 [facility] Comment on above: Performed By: #### H H, BMP, ANION, EGFR1 #### [place] [address] LEUKO-REDUCED RCon 4 -1 LEUKOREDUCED RED CELLS [id number] released Normal [facility] Comment on above: Performed By: #### P OCGL #### [place] [address] LEUKO-REDUCED RED CELLS BAG 1 [id number] released Normal [facility] Comment on above: Performed By: #### P OCGL #### [place] [id number] ANION GAPon 10-21-2023 Anion gap [Moles/Vol] 6.0 mmol/L Low 8.0-16.0 [facility] Comment on above: Result Comment: ANIO N GAP = Sodium -(Chloride + CO2) Performed By: #### M RSP #### [address] [place] [address] BASIC METABOL PANELon 2023 Calcium [Mass/Vol] 8.2 mg/dL Low 8.5-10.5 [facility] Comment on above: Performed By: #### M RSP #### [facility] [address] [place] [address] Chloride [Moles/Vol] 103 mmol/L Normal 98-111 [facility] Comment on above: Performed By: #### M RSP #### [facility] [address] [place] [address] CO2 [Moles/Vol] 28 mmol/L Normal 23-33 [facility] Comment on above: Performed By: #### M RSP #### [facility] [address] [place] [address] Creatinine [Mass/Vol] 0.6 mg/dL Normal 0.4-1.2 [facility] Comment on above: Performed By: #### M RSP #### [facility] [employer] [address] [place] [address] Glucose [Mass/Vol] 121 mg/dL High 70-108 [facility] Comment on above: Performed By: #### M RSP #### [facility] [address] [place] [address] Potassium [Moles/Vol] 4.2 mmol/L Normal 3.5-5.2 [facility] Comment on above: Performed By: #### M RSP #### [facility] [address] [address] Sodium [Moles/Vol] 137 mmol/L Normal 135-145 [facility] Comment on above: Performed By: #### M RSP #### [facility] [address] [place] [address] Urea nitrogen [Mass/Vol] 9 mg/dL Normal 7-22 [facility] Comment on above: Performed By: #### M RSP #### [facility] [employer] [facility] [employer] [address] [place] [address] GFR, ESTIMATEDon 10-21-2023 GFR/1.73 sq M.predicted MDRD (S/P/Bld) [Vol rate/Area] mL/min/{1.73_m2} Normal >60 [facility] Comment on above: Result Comment: Gallito atric calculator link https://www.kidney.org/professionals/kdoqi/gfr_calculatorped Effective Mar 02, 2022 These results are not intended for use in patients <18 years of age. eGFR results are calculated without a race factor using the 2020 CKD-EPI equation. Careful clinical correlation is recommended, particularly when comparing to results calculated using previous equations. The CKD-EPI equation is less accurate in patients with extremes of muscle mass, extra-renal metabolism of creatinine, excessive creatine ingestion, or following therapy that affects renal tubular secretion. Performed By: #### M RSP #### [address] [address] GLUCOSE POCon 10-21-2023 Glucose [Mass/Vol] 148 mg/dL High 70-108 [facility] Comment on above: Performed By: #### M RSP #### [address] [address] Glucose [Mass/Vol] 145 mg/dL High 70-108 [facility] Comment on above: Performed By: #### P OCGL #### [address] [address] Glucose [Mass/Vol] 103 mg/dL Normal 70-108 [facility] Comment on above: Performed By: #### P OCGL #### [facility] [address] [place] [address] Glucose [Mass/Vol] 117 mg/dL High 70-108 [facility] Comment on above: Performed By: #### P OCGL #### [facility] [address] [place] [address] HGB,HCTon 10-21-2023 Hematocrit (Bld) [Volume fraction] 33.5 % Low 37.0-47.0 [facility] Comment on above: Performed By: #### M RSP #### [address] [address] Hemoglobin (Bld) [Mass/Vol] 9.8 g/dL Low 12.0-16.0 [facility] Comment on above: Performed By: #### M RSP #### [address] [address] ANION GAPon 10-20-2023 Anion gap [Moles/Vol] 11.0 mmol/L Normal 8.0-16.0 [facility] Comment on above: Result Comment: ANIO N GAP = Sodium -(Chloride + CO2) Performed By: #### P OCGL #### [address] [address] BASIC METABOL PANELon 2023 Calcium [Mass/Vol] 7.9 mg/dL Low 8.5-10.5 [facility] Comment on above: Performed By: #### P OCGL #### [address] [address] Chloride [Moles/Vol] 101 mmol/L Normal 98-111 [facility] Comment on above: Performed By: #### P OCGL #### [address] [address] CO2 [Moles/Vol] 26 mmol/L Normal 23-33 [facility] Comment on above: Performed By: #### P OCGL #### [address] [address] Creatinine [Mass/Vol] 0.7 mg/dL Normal 0.4-1.2 [facility] Comment on above: Performed By: #### P OCGL #### [address] [address] Glucose [Mass/Vol] 176 mg/dL High 70-108 [facility] Comment on above: Performed By: #### P OCGL #### [address] [address] Potassium [Moles/Vol] 4.2 mmol/L Normal 3.5-5.2 [facility] Comment on above: Result Comment: Low level specimen hemolysis is present as indicated by the interference level index on the Mallorie analyzer. The reported K+ level may be falsely increased. If clinically warranted, recollection of the specimen is suggested. Performed By: #### P OCGL #### [facility] [address] [place] [address] Sodium [Moles/Vol] 138 mmol/L Normal 135-145 [facility] Comment on above: Performed By: #### P OCGL #### [address] [address] Urea nitrogen [Mass/Vol] 7 mg/dL Normal 7-22 [facility] Comment on above: Performed By: #### P OCGL #### [address] [address] GFR, ESTIMATEDon 10-20-2023 GFR/1.73 sq M.predicted MDRD (S/P/Bld) [Vol rate/Area] mL/min/{1.73_m2} Normal >60 [facility] Comment on above: Result Comment: Gallito atric calculator link https://www.kidney.org/professionals/kdoqi/gfr_calculatorped Effective Mar 02, 2022 These results are not intended for use in patients <18 years of age. eGFR results are calculated without a race factor using the 2020 CKD-EPI equation. Careful clinical correlation is recommended, particularly when comparing to results calculated using previous equations. The CKD-EPI equation is less accurate in patients with extremes of muscle mass, extra-renal metabolism of creatinine, excessive creatine ingestion, or following therapy that affects renal tubular secretion. Performed By: #### P OCGL #### [address] [address] GLUCOSE POCon 10-20-2023 Glucose [Mass/Vol] 153 mg/dL High 70-108 [facility] Comment on above: Performed By: #### P OCGL #### [address] [address] Glucose [Mass/Vol] 115 mg/dL High 70-108 [facility] Comment on above: Performed By: #### P OCGL #### [facility] [employer] [address] [place] [address] Glucose [Mass/Vol] 117 mg/dL High 70-108 [facility] Comment on above: Performed By: #### P OCGL #### [facility] [address] [address] Glucose [Mass/Vol] 169 mg/dL High 70-108 [facility] Comment on above: Performed By: #### M RSP #### [address] [address] HGB,HCTon 10-20-2023 Hematocrit (Bld) [Volume fraction] 36.8 % Low 37.0-47.0 [facility] Comment on above: Performed By: #### P OCGL #### [address] [address] Hemoglobin (Bld) [Mass/Vol] 11.1 g/dL Low 12.0-16.0 [facility] Comment on above: Performed By: #### P OCGL #### [address] [address] ANTIBODY IDENTIFICATIONon ANTIBODY IDENTIFICATION POS, ANTI-Fya (Rahman) Normal [facility] Comment on above: Performed By: #### P OCGL #### [address] [address] FLUORO FOR SURGICAL PROCEDUR ESon 10-19-2023 FLUORO FOR SURGICAL PROCEDURES Radiology exam is complete. No Radiologist dictation. Please follow up with ordering provider. Normal [facility] FYA ANTIGENon 10-19-2023 FYA ANTIGEN Negative Normal [facility] Comment on above: Result Comment: Prev iously: POS 10/19/23 11:48 Performed By: #### P OCGL #### [address] [address] GLUCOSE POCon 10-19-2023 Glucose [Mass/Vol] 262 mg/dL High 70-108 [facility] Comment on above: Performed By: #### P OCGL #### [address] [address] Glucose [Mass/Vol] 169 mg/dL High 70-108 [facility] Comment on above: Performed By: #### P OCGL #### [address] [address] Glucose [Mass/Vol] 126 mg/dL High 70-108 [facility] Comment on above: Performed By: #### M RSP #### [address] [address] TYPE AND SCREEN CAPTUREon INDIRECT CONNER CAPTURE Positive Normal [facility] Comment on above: Performed By: #### P OCGL #### [address] [address] ABO CAPTURE O Normal [facility] Comment on above: Performed By: #### P OCGL #### [address] [address] RH CAPTURE (2 D CLONES) Positive Normal [facility] Comment on above: Performed By: #### P OCGL #### [address] [address] ANION GAPon 10-01-2023 Anion gap [Moles/Vol] 16.0 mmol/L Normal 8.0-16.0 [facility] Comment on above: Result Comment: ANIO N GAP = Sodium -(Chloride + CO2) Performed By: #### P OCGL #### [address] [address] APTTon 10-01-2023 aPTT Coag (Bld) [Time] 34.5 s Normal 22.0-38.0 [facility] Comment on above: Result Comment: Ther apeutic Heparin Reference Range= 60-95 seconds (corresponds to 0.3 to 0.7 u/mL Anti-Xa factor activity) Performed By: #### P OCGL #### [address] [address] BASIC METABOL PANELon 2023 Calcium [Mass/Vol] 9.4 mg/dL Normal 8.5-10.5 [facility] Comment on above: Performed By: #### P OCGL #### [address] [address] Chloride [Moles/Vol] 100 mmol/L Normal 98-111 [facility] Comment on above: Performed By: #### P OCGL #### [address] [address] CO2 [Moles/Vol] 24 mmol/L Normal 23-33 [facility] Comment on above: Performed By: #### P OCGL #### [facility] [address] [place] [address] Creatinine [Mass/Vol] 0.8 mg/dL Normal 0.4-1.2 [facility] Comment on above: Performed By: #### P OCGL #### [facility] [address] [place] [address] Glucose [Mass/Vol] 133 mg/dL High 70-108 [facility] Comment on above: Performed By: #### P OCGL #### [facility] [address] [place] [address] Potassium [Moles/Vol] 4.8 mmol/L Normal 3.5-5.2 [facility] Comment on above: Performed By: #### P OCGL #### [employer] [address] [place] [address] Sodium [Moles/Vol] 140 mmol/L Normal 135-145 [facility] Comment on above: Performed By: #### P OCGL #### [employer] [address] [place] [address] Urea nitrogen [Mass/Vol] 12 mg/dL Normal 7-22 [facility] Comment on above: Performed By: #### P OCGL #### [employer] [address] [place] [address] CBC NO DIFFERENTIALon 2023 Erythrocyte distribution width (RBC) [Ratio] 15.3 % High 11.5-14.5 [facility] Comment on above: Performed By: #### P OCGL #### [facility] [address] [place] [address] Hematocrit (Bld) [Volume fraction] 43.3 % Normal 37.0-47.0 [facility] Comment on above: Performed By: #### P OCGL #### [facility] [address] [place] [address] Hemoglobin (Bld) [Mass/Vol] 13.3 g/dL Normal 12.0-16.0 [facility] Comment on above: Performed By: #### P OCGL #### [address] [address] MCH (RBC) [Entitic mass] 26.3 pg Normal 26.0-33.0 [facility] Comment on above: Performed By: #### P OCGL #### [address] [address] MCHC (RBC) [Mass/Vol] 30.7 g/dL Low 32.2-35.5 [facility] Comment on above: Performed By: #### P OCGL #### [address] [address] MCV (RBC) [Entitic vol] 85.6 fL Normal 81.0-99.0 [facility] Comment on above: Performed By: #### P OCGL #### [address] [address] PLATELET 309 thou/mm3 Normal 130-400 [facility] Comment on above: Performed By: #### P OCGL #### [place] [address] Platelet mean volume (Bld) [Entitic vol] 10.1 fL Normal 9.4-12.4 [facility] Comment on above: Performed By: #### P OCGL #### [place] [id number] RBC 5.06 mill/mm3 Normal 4.20-5.40 [facility] Comment on above: Performed By: #### P OCGL #### [address] [address] RDW-SD 47.3 fL High 35.0-45.0 [facility] Comment on above: Performed By: #### P OCGL #### [place] [id number] WBC 13.5 thou/mm3 High 4.8-10.8 [facility] Comment on above: Performed By: #### P OCGL #### [address] [address] GFR, ESTIMATEDon 10-01-2023 GFR/1.73 sq M.predicted MDRD (S/P/Bld) [Vol rate/Area] mL/min/{1.73_m2} Normal >60 [facility] Comment on above: Result Comment: Gallito atric calculator link https://www.kidney.org/professionals/kdoqi/gfr_calculatorped Effective Mar 02, 2022 These results are not intended for use in patients <18 years of age. eGFR results are calculated without a race factor using the 2020 CKD-EPI equation. Careful clinical correlation is recommended, particularly when comparing to results calculated using previous equations. The CKD-EPI equation is less accurate in patients with extremes of muscle mass, extra-renal metabolism of creatinine, excessive creatine ingestion, or following therapy that affects renal tubular secretion. Performed By: #### P OCGL #### [employer] [address] [place], [place] [address] HEMOGLOBIN A1Con 10-01-2023 Glucose [Mass/Vol] 135 mg/dL High 70-126 [facility] Comment on above: Performed By: #### P OCGL #### [facility] [facility] [employer] [address] [place] [address] HbA1c (Bld) [Mass fraction] 6.5 % High 4.4-6.4 [facility] Comment on above: Performed By: #### P OCGL #### [facility] [employer] [address] [place] [address] MRSA BY PCRon 10-01-2023 MRSA SCREEN RT-PCR Negative Normal [facility] Comment on above: Result Comment: No M RSA detected by Real Time - Polymerase Chain Reaction. Specimen Source: Nares Performed By: #### M RSP #### [facility] [address] [place], [place] [address] PROTHOMBIN TIMEon 10-01-2023 INR Coag (Bld) [Relative time] 0.98 {INR} Normal 0.85-1.13 [facility] Comment on above: Result Comment: ---- -----INDICATION INR Reference Range DVT, PE, AF, AMI, tissue heart valve 2.0 to 3.0 Mechanical prosthetic valves 2.5 to 3.5 Performed By: #### P OCGL #### [employer] [facility] [address] [place] [address] MR Lumbar spine WO vincenzoo n 08-10-2023 IMPRESSION: Very minimal degenerative changes of the lower lumbar discs with annular bulging not associated with canal, recess, or foramen stenosis L3-L4, L4-L5. Broad-based low-level right central disc protrusion at the lumbosacral level at least abutting the right ventral thecal sac. No canal, recess, or high-grade foraminal narrowing noted. Arthrodesis screw hardware with susceptibility artifacts present on the left at the sacroiliac joint. RADIOLOGY EXAM: MRI SPINE LUMBAR WITHOUT CONTRAST HISTORY: Right hip pain. Lumbar spinal stenosis with neurogenic claudication. COMPARISON: Lumbar x-ray studies dated January 08, 2023. TECHNIQUE: Multisequence, multiplanar MRI studies of the lumbar spine include heavily T2-weighted STIR sagittal scans. FINDINGS: The lumbar vertebral bodies are intact, and are appropriately aligned. There are several foci of increased signal T1 and T2 fast spin-echo present at the levels T12, L4, and S2, all of which are showing complete suppression on STIR consistent with focal fat or hemangioma. The intervertebral disc space heights are fairly well preserved. I do see posterior interspace narrowing and bulging of the disc at the lumbosacral level. The conus tip lies at lower L1. The axial scans in the upper lumbar canal from T12 to L3 showed no lateralized protrusion, canal, recess, or foramen narrowing. At L3-L4 circumferential annular bulge present without high-grade canal, recess, or foramen stenosis. At L4-L5 similar circumferential annular bulge present without canal, recess, or foramen stenosis. At the lumbosacral level there is a broad-based disc protrusion which is low level, very slightly right central. This is asymmetrically abutting the right ventral thecal sac without resultant canal, recess, or foramen stenosis. Note made of susceptibility artifacts in the region of the left lateral pelvis and sacroiliac region relating to arthrodesis screws. The other visible included paraspinal soft tissues are unremarkable. RADIOLOGY Luciano Alonso, DO - 08/10/2023 EXAM: MRI SPINE LUMBAR WITHOUT CONTRAST HISTORY: Right hip pain. Lumbar spinal stenosis with neurogenic claudication. COMPARISON: Lumbar x-ray studies dated January 08, 2023. TECHNIQUE: Multisequence, multiplanar MRI studies of the lumbar spine include heavily T2-weighted STIR sagittal scans. FINDINGS: The lumbar vertebral bodies are intact, and are appropriately aligned. There are several foci of increased signal T1 and T2 fast spin-echo present at the levels T12, L4, and S2, all of which are showing complete suppression on STIR consistent with focal fat or hemangioma. The intervertebral disc space heights are fairly well preserved. I do see posterior interspace narrowing and bulging of the disc at the lumbosacral level. The conus tip lies at lower L1. The axial scans in the upper lumbar canal from T12 to L3 showed no lateralized protrusion, canal, recess, or foramen narrowing. At L3-L4 circumferential annular bulge present without high-grade canal, recess, or foramen stenosis. At L4-L5 similar circumferential annular bulge present without canal, recess, or foramen stenosis. At the lumbosacral level there is a broad-based disc protrusion which is low level, very slightly right central. This is asymmetrically abutting the right ventral thecal sac without resultant canal, recess, or foramen stenosis. Note made of susceptibility artifacts in the region of the left lateral pelvis and sacroiliac region relating to arthrodesis screws. The other visible included paraspinal soft tissues are unremarkable. IMPRESSION IMPRESSION: Very minimal degenerative changes of the lower lumbar discs with annular bulging not associated with canal, recess, or foramen stenosis L3-L4, L4-L5. Broad-based low-level right central disc protrusion at the lumbosacral level at least abutting the right ventral thecal sac. No canal, recess, or high-grade foraminal narrowing noted. Arthrodesis screw hardware with susceptibility artifacts present on the left at the sacroiliac joint. [facility] [place] Radiology Study observation (narrative) [facility] [place] MR Lumbar spine WO contrastO rdered By: Luciano Alonso on 08-10-2023 [facility] [place] Work Phone: MR Pelvis WO contraston 07-29 IMPRESSION: Moderate degenerative disc disease present with a disc bulge at L5-S1. Postsurgical changes are present to the left sacroiliac joint. No signs of hardware complications. No ligament or tendon tear. Mild degenerative joint disease present, with superficial chondromalacia. No osseous erosions. RADIOLOGY MRI PELVIS CLINICAL HISTORY: Pain COMPARISON: None TECHNIQUE: MRI PELVIS WITHOUT CONTRAST Multiplanar, multisequence images of the pelvis were obtained without the administration of IV contrast. FINDINGS: Bone: The bone marrow signal is normal. No acute fracture or evidence of osteonecrosis. Moderate degenerative disc disease present at L5-S1, with a broad disc bulge, contributing to moderate central canal stenosis at this level. See MRI dictation for discussion. Postsurgical changes are present to the left sacroiliac joint. This does cause susceptibility artifact, which limits evaluation. Mild degenerative joint disease identified elsewhere. No osseous erosions identified at the sacroiliac joints. Joints: The joints are congruent. No visualized effusions. Bursae: No abnormal bursal fluid. Musculature: Muscle bulk is preserved without asymmetric muscle atrophy or evidence of denervation. Tendons: The tendons about the bilateral hips are normal in morphology and signal intensity. Articular cartilage: Moderate grade 1/2 chondromalacia is present. RADIOLOGY Johnathan Pham MD - 08/10/2023 MRI PELVIS CLINICAL HISTORY: Pain COMPARISON: None TECHNIQUE: MRI PELVIS WITHOUT CONTRAST Multiplanar, multisequence images of the pelvis were obtained without the administration of IV contrast. FINDINGS: Bone: The bone marrow signal is normal. No acute fracture or evidence of osteonecrosis. Moderate degenerative disc disease present at L5-S1, with a broad disc bulge, contributing to moderate central canal stenosis at this level. See MRI dictation for discussion. Postsurgical changes are present to the left sacroiliac joint. This does cause susceptibility artifact, which limits evaluation. Mild degenerative joint disease identified elsewhere. No osseous erosions identified at the sacroiliac joints. Joints: The joints are congruent. No visualized effusions. Bursae: No abnormal bursal fluid. Musculature: Muscle bulk is preserved without asymmetric muscle atrophy or evidence of denervation. Tendons: The tendons about the bilateral hips are normal in morphology and signal intensity. Articular cartilage: Moderate grade 1/2 chondromalacia is present. IMPRESSION IMPRESSION: Moderate degenerative disc disease present with a disc bulge at L5-S1. Postsurgical changes are present to the left sacroiliac joint. No signs of hardware complications. No ligament or tendon tear. Mild degenerative joint disease present, with superficial chondromalacia. No osseous erosions. [facility] Radiology Study observation (narrative) [facility] MR Pelvis WO contrastOrdered By: Johnathan Pham on 08-10-2023 [facility] Work Phone: MRI PELVIS WITHOUT CONTRASTo n 08-10-2023 MRI PELVIS WITHOUT CONTRAST MRI PELVIS CLINICAL HISTORY: Pain COMPARISON: None TECHNIQUE: MRI PELVIS WITHOUT CONTRAST Multiplanar, multisequence images of the pelvis were obtained without the administration of IV contrast. FINDINGS: Bone: The bone marrow signal is normal. No acute fracture or evidence of osteonecrosis. Moderate degenerative disc disease present at L5-S1, with a broad disc bulge, contributing to moderate central canal stenosis at this level. See MRI dictation for discussion. Postsurgical changes are present to the left sacroiliac joint. This does cause susceptibility artifact, which limits evaluation. Mild degenerative joint disease identified elsewhere. No osseous erosions identified at the sacroiliac joints. Joints: The joints are congruent. No visualized effusions. Bursae: No abnormal bursal fluid. Musculature: Muscle bulk is preserved without asymmetric muscle atrophy or evidence of denervation. Tendons: The tendons about the bilateral hips are normal in morphology and signal intensity. Articular cartilage: Moderate grade 1/2 chondromalacia is present. IMPRESSION: Moderate degenerative disc disease present with a disc bulge at L5-S1. Postsurgical changes are present to the left sacroiliac joint. No signs of hardware complications. No ligament or tendon tear. Mild degenerative joint disease present, with superficial chondromalacia. No osseous erosions. Normal [facility] MRI SPINE LUMBAR WITHOUT CON TRASTon 08-10-2023 MRI SPINE LUMBAR WITHOUT CONTRAST EXAM: MRI SPINE LUMBAR WITHOUT CONTRAST HISTORY: Right hip pain. Lumbar spinal stenosis with neurogenic claudication. COMPARISON: Lumbar x-ray studies dated January 08, 2023. TECHNIQUE: Multisequence, multiplanar MRI studies of the lumbar spine include heavily T2-weighted STIR sagittal scans. FINDINGS: The lumbar vertebral bodies are intact, and are appropriately aligned. There are several foci of increased signal T1 and T2 fast spin-echo present at the levels T12, L4, and S2, all of which are showing complete suppression on STIR consistent with focal fat or hemangioma. The intervertebral disc space heights are fairly well preserved. I do see posterior interspace narrowing and bulging of the disc at the lumbosacral level. The conus tip lies at lower L1. The axial scans in the upper lumbar canal from T12 to L3 showed no lateralized protrusion, canal, recess, or foramen narrowing. At L3-L4 circumferential annular bulge present without high-grade canal, recess, or foramen stenosis. At L4-L5 similar circumferential annular bulge present without canal, recess, or foramen stenosis. At the lumbosacral level there is a broad-based disc protrusion which is low level, very slightly right central. This is asymmetrically abutting the right ventral thecal sac without resultant canal, recess, or foramen stenosis. Note made of susceptibility artifacts in the region of the left lateral pelvis and sacroiliac region relating to arthrodesis screws. The other visible included paraspinal soft tissues are unremarkable. IMPRESSION: Very minimal degenerative changes of the lower lumbar discs with annular bulging not associated with canal, recess, or foramen stenosis L3-L4, L4-L5. Broad-based low-level right central disc protrusion at the lumbosacral level at least abutting the right ventral thecal sac. No canal, recess, or high-grade foraminal narrowing noted. Arthrodesis screw hardware with susceptibility artifacts present on the left at the sacroiliac joint. Normal [facility] LARGE JOINT/BURSA INJECTION AND/OR ASPIRATIONon 08-02-2023 Papa Prater 08/02/2023 12:24 PM LARGE JOINT/BURSA INJECTION AND/OR ASPIRATION Date/Time: 08/02/2023 10:30 AM Performed by: Keila Hemphill MD Authorized by: Keila Hemphill MD Supporting Documentation Indications: pain and osteoarthritis Procedure Details: Location: sacroiliac - R sacroiliac joint Local Anesthetic: bupivacaine 0.5% and lidocaine 1% Total Local Anesthetic: 4 mLs Guidance: ultrasound Ultrasound probe size: 4 mHz curvilinear Images were saved electronically. Needle size: 22 G Needle Length: 4.0 inch Approach: posterior Medication Verification: I have personally verified and performed the final check of the medication(s) used in this procedure prior to administration. The following items were included during the verification process for medication(s) administered: drug name, strength, volume, expiration, physical integrity and appearance of the medication(s). Medications administered: 1 mL BUPivacaine 0.5 %; 2 mL triamcinolone 40 MG/ML; 4 mL Lidocaine 10 mg/mL; 5 mL Sodium chloride (PF) 0.9 %; 4 mg dexAMETHasone 4 MG/ML Patient tolerance: patient tolerated the procedure well with no immediate complications Comments Medical Decision Making At today's visit I reviewed the history, physical examination, and previous pertinent imaging. We weighed the options of whether or not to proceed with an injection today based off of these findings and discussed alternatives. After this discussion, I felt that the injection was indicated and we elected to proceed. This evaluation and management service was a separate and identifiable service apart from the injection. Pre-Procedure Details The attending physician was present for the entire procedure. Consent: Consent was obtained prior to the procedure after discussion of the risks, benefits and alternatives, and expected outcomes were discussed with the patient. The possibilities of reaction to medication, bleeding, infection, the need for additional procedures, failure to diagnosis a condition, and creating a complication requiring operation were discussed with the patient. The patient concurred with the proposed plan, giving consent. Preparation: Patient was prepped in the usual sterile fashion. The patient was prepped with Chloraprep. [facility] Radiology Study observation (narrative) [facility] [place] Unspecified body regionon 08-02-2023 Image Storage This order is to facilitate the storage of the image. [facility] GLUCOSE (POC DEVICE)on 07-02 GLUCOSE, POINT OF CARE 127 High [facility] System Interpretation and review of laboratory results Abnormal [facility] Operator [id number] [facility] POCT GLUCOSEon 07-02-2023 Glucose [Mass/Vol] 127 mg/dL High 70-100 [facility] LOOM CHECKER [id number] Normal [facility] XR SPINE LUMBAR W BENDINGon 05-04-2023 XR SPINE LUMBAR W BENDING EXAM: XR SPINE LUMBAR W BENDING 05/03/2023 COMPARISON STUDY: Lumbar spine 03/01/2023. FINDINGS: Upright AP, lateral, flexion, extension, coned-down and bilateral oblique views for a total of 7 images obtained. HISTORY: Spinal Stenosis IMPRESSION: 1. Patient appears morbidly obese. Prior cholecystectomy and utilization of 3 horizontally oriented screws for fixation across the left SI joint again noted. 2. Lower thoracic/lumbar alignment and curvature are otherwise intact with multilevel Schmorl's information as well as multilevel spondylitic/facet arthritic changes appearing stable. The disc space during is most apparent at L1-L2 and L5-S1 with facet disease most apparent at the L4 and L5 levels. 3. No acute fracture, subluxation, spondylolysis or spondylolisthesis otherwise noted. 4. Moderate arthritic changes about both SI joints are noted. The arthritic changes of the hip joints are partially visualized superiorly similar to that seen on prior study as well. Normal [facility] XR SPINE LUMBOSACRAL AP AND LATERALon 03-01-2023 XR SPINE LUMBOSACRAL AP AND LATERAL EXAM: XR SPINE LUMBOSACRAL AP AND LATERAL HISTORY: Sacroiliitis COMPARISON: None. TECHNIQUE: 3 views FINDINGS/IMPRESSION: Satisfactory alignment. Maintained vertebral body heights and disc spaces. Mild multilevel endplate degenerative changes and facet arthropathy of L3-S1. No acute fracture or subluxation. Left-sided sacroiliac fixation. Intact screws. Normal [facility] XR Spine lumbosacral junctio n Viewson 03-01-2023 FINDINGS/IMPRESSION: Satisfactory alignment. Maintained vertebral body heights and disc spaces. Mild multilevel endplate degenerative changes and facet arthropathy of L3-S1. No acute fracture or subluxation. Left-sided sacroiliac fixation. Intact screws. RADIOLOGY EXAM: XR SPINE LUMBOSACRAL AP AND LATERAL HISTORY: Sacroiliitis COMPARISON: None. TECHNIQUE: 3 views Omero Reinoso MD - 03/01/2023 EXAM: XR SPINE LUMBOSACRAL AP AND LATERAL HISTORY: Sacroiliitis COMPARISON: None. TECHNIQUE: 3 views IMPRESSION FINDINGS/IMPRESSION: Satisfactory alignment. Maintained vertebral body heights and disc spaces. Mild multilevel endplate degenerative changes and facet arthropathy of L3-S1. No acute fracture or subluxation. Left-sided sacroiliac fixation. Intact screws. [facility] Radiology Study observation (narrative) [facility] XR Spine lumbosacral junctio n ViewsOrdered By: Omero Hernandez on 03-01-2023 [facility] Work Phone: GLUCOSE (POC DEVICE)on 02-11 GLUCOSE, POINT OF CARE [address] [facility] Interpretation and review of laboratory results [facility] [phone] [facility] POCT GLUCOSEon 02-11-2023 Glucose [Mass/Vol] 121 mg/dL High 70-100 [facility] LOOM CHECKER [id number] Normal [facility] CMP FASTINGon 02-03-2023 A:G RATIO 1.1 RATIO Low 1.3-2.2 [facility] ALBUMIN 3.8 G/dl Normal 3.5-5.0 [facility] ALP [Catalytic activity/Vol] 91 U/L Normal 38-126 [facility] ALT [Catalytic activity/Vol] 36 U/L High <35 [facility] AST [Catalytic activity/Vol] 30 U/L Normal 14-36 [facility] Bilirubin [Mass/Vol] 0.4 mg/dL Normal 0.2-1.3 [facility] Calcium [Mass/Vol] 9.1 mg/dL Normal 8.4-10.2 [facility] Chloride [Moles/Vol] 102 mmol/L Normal 98-107 [facility] Comment on above: Result Comment: Wilmar flores note: Triglyceride levels of 600mg/dL or higher may positively bias chloride results by approximately 2.1 mmol CO2 [Moles/Vol] 27 mmol/L Normal 22-30 [facility] Creatinine [Mass/Vol] 0.70 mg/dL Normal 0.7-1.2 [facility] EST. GFR, 115 ml/min/1.73sq.m [facility] EST. GFR,Non 95 ml/min/1.73sq.m [facility] GFR Information Average GFR for 40-4 9 years old = 99. Normal [facility] Comment on above: Result Comment: Lab Technologist kelley Kidney disease, GFR = <60. Kidney failure, GFR = <15. The GFR estimate is not adjusted for extreme body surface area or acute process, nor has it been validated for women or ethnic groups other than and . Glucose [Mass/Vol] 135 mg/dL High 70-100 [facility] Comment on above: Result Comment: NORMAL <100 mg/dL PREDIABETES 101-126 mg/dL DIABETES 126 mg/dL or higher Potassium [Moles/Vol] 4.1 mmol/L Normal 3.5-5.1 [facility] Protein [Mass/Vol] 7.2 g/dL Normal 6.3-8.2 [facility] Sodium [Moles/Vol] 137 mmol/L Normal 137-145 [facility] Urea nitrogen [Mass/Vol] 12 mg/dL Normal 7-20 [facility] HEMOGLOBIN A1Con 02-03-2023 Glucose [Mass/Vol] 151 mg/dL Normal [facility] HbA1c (Bld) [Mass fraction] 6.9 % High 0-6 [facility] Comment on above: Result Comment: NORMAL <5.7% PREDIABETES 5.7-6.4% DIABETES 6.5% OR HIGHER LARGE JOINT/BURSA INJECTION AND/OR ASPIRATIONon 01-09-2023 Radiology Study observation (narrative) [facility] XR Lumbar spine Views W righ t bending and W left bendingon 01-08-2023 IMPRESSION: Multilevel degenerative changes and disc disease as above. RADIOLOGY EXAM: XR SPINE LUMBA R W BENDING HISTORY: Vertebrogenic low back pain COMPARISON: None. TECHNIQUE: 5 views with flexion and extension FINDINGS: Satisfactory alignment. Maintained vertebral body heights. Maintained disc spaces. Multilevel endplate degenerative changes and facet arthropathy, most prominent at L4-S1. No acute fracture or subluxation. Unremarkable soft tissues. RADIOLOGY Omero Hernandez MD - 01/08/2023 EXAM: XR SPINE LUMBAR W BENDING HISTORY: Vertebrogenic low back pain COMPARISON: None. TECHNIQUE: 5 views with flexion and extension FINDINGS: Satisfactory alignment. Maintained vertebral body heights. Maintained disc spaces. Multilevel endplate degenerative changes and facet arthropathy, most prominent at L4-S1. No acute fracture or subluxation. Unremarkable soft tissues. IMPRESSION IMPRESSION: Multilevel degenerative changes and disc disease as above. [facility] Radiology Study observation (narrative) [facility] XR Lumbar spine Views W righ t bending and W left bendingOrdered By: Omero Hernandez on 01-08-2023 [facility] Work Phone: XR SPINE LUMBAR W BENDINGon 01-08-2023 XR SPINE LUMBAR W BENDING EXAM: XR SPINE LUMBAR W BENDING HISTORY: Vertebrogenic low back pain COMPARISON: None. TECHNIQUE: 5 views with flexion and extension FINDINGS: Satisfactory alignment. Maintained vertebral body heights. Maintained disc spaces. Multilevel endplate degenerative changes and facet arthropathy, most prominent at L4-S1. No acute fracture or subluxation. Unremarkable soft tissues. IMPRESSION: Multilevel degenerative changes and disc disease as above. Normal [facility] LARGE JOINT/BURSA INJECTION AND/OR ASPIRATIONon 12-15-2022 Papa Prater 01/09/2023 2:35 PM LARGE JOINT/BURSA INJECTION AND/OR ASPIRATION Date/Time: 12/15/2022 1:30 PM Performed by: Keila Hemphill MD Authorized by: Keila Hemphill MD Supporting Documentation Indications: pain and osteoarthritis Procedure Details: Location: sacroiliac - L sacroiliac joint Local Anesthetic: bupivacaine 0.5% and lidocaine 1% Total Local Anesthetic: 4 mLs Guidance: ultrasound Ultrasound probe size: 4 mHz curvilinear Images were saved electronically. Needle size: 22 G Needle Length: 4.0 inch Approach: posterior Medication Verification: I have personally verified and performed the final check of the medication(s) used in this procedure prior to administration. The following items were included during the verification process for medication(s) administered: drug name, strength, volume, expiration, physical integrity and appearance of the medication(s). Medications administered: 1 mL bupivacaine 0.5 %; 2 mL triamcinolone 40 MG/ML; 4 mL Lidocaine 10 mg/mL; 5 mL Sodium chloride (PF) 0.9 %; 4 mg dexAMETHasone 4 MG/ML Patient tolerance: patient tolerated the procedure well with no immediate complications Comments Medical Decision Making At today's visit I reviewed the history, physical examination, and previous pertinent imaging. We weighed the options of whether or not to proceed with an injection today based off of these findings and discussed alternatives. After this discussion, I felt that the injection was indicated and we elected to proceed. This evaluation and management service was a separate and identifiable service apart from the injection. Pre-Procedure Details The attending physician was present for the entire procedure. Consent: Consent was obtained prior to the procedure after discussion of the risks, benefits and alternatives, and expected outcomes were discussed with the patient. The possibilities of reaction to medication, bleeding, infection, the need for additional procedures, failure to diagnosis a condition, and creating a complication requiring operation were discussed with the patient. The patient concurred with the proposed plan, giving consent. Preparation: Patient was prepped in the usual sterile fashion. The patient was prepped with Chloraprep. [facility] [place] Unspecified body regionon 12-15-2022 Image Storage This order is to facilitate the storage of the image. [facility] LARGE JOINT/BURSA INJECTION AND/OR ASPIRATION: L greater trochanteric bursaon 11-18-2022 Radiology Study observation (narrative) [facility] LARGE JOINT/BURSA INJECTION AND/OR ASPIRATION: L greater trochanteric bursaon 10-23-2022 Papa Moi 11/18/2022 11:07 AM LARGE JOINT/BURSA INJECTION AND/OR ASPIRATION: L greater trochanteric bursa Date/Time: 10/23/2022 1:00 PM Performed by: Keila Hemphill MD Authorized by: Keila Hemphill MD Supporting Documentation Indications: pain Procedure Details: Location: hip - L greater trochanteric bursa Needle size: 22 G Approach: lateral Medication Verification: I have personally verified and performed the final check of the medication(s) used in this procedure prior to administration. The following items were included during the verification process for medication(s) administered: drug name, strength, volume, expiration, physical integrity and appearance of the medication(s). Medications administered: 2 mL triamcinolone 40 MG/ML; 1 mL lidocaine 10 mg/mL; 1 mL bupivacaine 0.5 %; 4 mg dexAMETHasone 4 MG/ML Patient tolerance: patient tolerated the procedure well with no immediate complications Comments Medical Decision Making At today's visit I reviewed the history, physical examination, and previous pertinent imaging. We weighed the options of whether or not to proceed with an injection today based off of these findings and discussed alternatives. After this discussion, I felt that the injection was indicated and we elected to proceed. This evaluation and management service was a separate and identifiable service apart from the injection. Pre-Procedure Details The attending physician was present for the entire procedure. Consent: Consent was obtained prior to the procedure after discussion of the risks, benefits and alternatives, and expected outcomes were discussed with the patient. The possibilities of reaction to medication, bleeding, infection, the need for additional procedures, failure to diagnosis a condition, and creating a complication requiring operation were discussed with the patient. The patient concurred with the proposed plan, giving consent. Preparation: Patient was prepped in the usual sterile fashion. The patient was prepped with alcohol. [facility] CBC with Auto Differentialon 09-23-2022 Absolute Eos # 0.34 [facility] Absolute Immature Granulocyte 0.05 [facility] Absolute Lymph # 1.70 [facility] [facility] Absolute [place] # 0.77 [facility] Basophils (Bld) [#/Vol] 0.05 10*3/uL [facility] Basophils/100 WBC (Bld) 1 % 0 - 2 % [facility] Eosinophils/100 WBC (Bld) 4 % 1 - 4 % [facility] Hematocrit (Bld) [Volume fraction] 39.1 % 36.3 - 47.1 % [facility] Hemoglobin (Bld) [Mass/Vol] 11.9 g/dL 11.9 - 15.1 g/dL [facility] Immature granulocytes/100 WBC (Bld) 1 % High 0 [facility] Interpretation and review of laboratory results Abnormal [facility] Lymphocytes/100 WBC (Bld) 21 % Low 24 - 43 % [facility] MCH (RBC) [Entitic mass] 26.6 pg 25.2 - 33.5 pg [facility] MCHC (RBC) [Mass/Vol] 30.4 g/dL 28.4 - 34.8 g/dL [facility] MCV (RBC) [Entitic vol] 87.3 fL 82.6 - 102.9 fL [facility] Monocytes/100 WBC (Bld) 9 % 3 - 12 % [facility] NRBC Automated 0.0 0.0 per 100 WBC [facility] Platelet distribution width (Bld) [Ratio] 14.6 % High 11.8 - 14.4 % [facility] Platelet mean volume (Bld) [Entitic vol] 9.7 fL 8.1 - 13.5 fL [facility] Platelets (Bld) [#/Vol] 248 10*3/uL [facility] RBC (Bld) [#/Vol] 4.48 10*6/uL 3.95 - 5.1 1 m/uL [facility] Segmented neutrophils/100 WBC (Bld) 64 % 36 - 65 % [facility] Segs Absolute 5.32 [facility] WBC (Bld) [#/Vol] 8.2 10*3/uL [facility] CMPon 09-23-2022 Albumin [Mass/Vol] 3.3 g/dL Low 3.5 - 5.2 g/dL [facility] Albumin/Globulin [Mass ratio] 0.9 {ratio} Low 1.0 - 2.5 [facility] ALP [Catalytic activity/Vol] 78 U/L 35 - 104 U/L [facility] ALT [Catalytic activity/Vol] 14 U/L 5 - 33 U/L [facility] Anion gap [Moles/Vol] 10 mmol/L 9 - 17 mmol/L [facility] AST [Catalytic activity/Vol] 14 U/L NINF - 32 U/L [facility] Bilirubin [Mass/Vol] 0.2 mg/dL Low 0.3 - 1 .2 mg/dL [facility] Calcium [Mass/Vol] 8.9 mg/dL 8.6 - 10. 4 mg/dL [facility] Chloride [Moles/Vol] 99 mmol/L 98 - 10 7 mmol/L [facility] CO2 [Moles/Vol] 28 mmol/L 20 - 31 mmol/L [facility] Creatinine [Mass/Vol] 0.87 mg/dL 0.50 - 0.90 mg/dL [facility] GFR/1.73 sq M.predicted MDRD (S/P/Bld) [Vol rate/Area] - PINF [facility] Comment on above: These results are not intended for use in patients <18 years of age. eGFR results are calculated without a race factor using the 2020 CKD-EPI equation. Careful clinical correlation is recommended, particularly when comparing to results calculated using previous equations. The CKD-EPI equation is less accurate in patients with extremes of muscle mass, extra-renal metabolism of creatine, excessive creatine ingestion, or following therapy that affects renal tubular secretion. Glucose [Mass/Vol] 190 mg/dL High 70 - 99 mg/dL [facility] Interpretation and review of laboratory results Abnormal [facility] Potassium [Moles/Vol] 4.2 mmol/L 3.7 - 5.3 mmol/L [facility] Protein [Mass/Vol] 6.8 g/dL 6.4 - 8.3 g/dL [facility] Sodium [Moles/Vol] 137 mmol/L 135 - 144 mmol/L [facility] Urea nitrogen [Mass/Vol] 11 mg/dL 6 - 20 mg/dL [facility] Urea nitrogen/Creatinine (Bld) [Mass ratio] 13 9 - [address] [facility] [address] ABDOMEN PELVIS W IV CONTR AST Additional Contrast? Noneon 09-23-2022 Infiltrates and consolidation are found within the lower lungs bilaterally, compatible with pneumonia and/or aspiration, new when compared to the previous exam. Postsurgical changes within the pelvis, with expected postsurgical fat stranding. No evidence of abscess formation. [facility] RIS CONSOLIDATED EXAMINATION: CT OF THE ABDOMEN AND PELVIS WITH CONTRAST 09/23/2022 8:44 am TECHNIQUE: CT of the abdomen and pelvis was performed with the administration of intravenous contrast. Multiplanar reformatted images are provided for review. Automated exposure control, iterative reconstruction, and/or weight based adjustment of the mA/kV was utilized to reduce the radiation dose to as low as reasonably achievable. COMPARISON: 07/27/2022 HISTORY: ORDERING SYSTEM PROVIDED HISTORY: Generalized abdominal pain; 2 wks post hysterectomy TECHNOLOGIST PROVIDED HISTORY: Generalized abdominal pain; 2 wks post hysterectomy Decision Support Exception - unselect if not a suspected or confirmed emergency medical condition->Emergency Medical Condition (MA) FINDINGS: Lower Chest: There are new infiltrates seen within the lower lobes bilaterally. Base of the heart is unremarkable. Organs: There is diffuse hepatic steatosis. No focal or acute hepatic abnormality identified. Gallbladder is surgically absent. Portal vein is patent. Spleen unremarkable. Adrenals unremarkable. Pancreas unremarkable. No acute or suspicious renal abnormality. GI/Bowel: Small moderate-sized hiatal hernia. Stomach otherwise unremarkable. Small bowel unremarkable. Mild diverticulosis of the large bowel is present without CT evidence of diverticulitis. Large bowel otherwise unremarkable. The appendix is not well visualized. No asymmetric pericecal inflammation is seen to suggest acute appendicitis. Pelvis: Fat stranding is seen in the vaginal cough extending to the lateral aspect of the pelvis, greater anteriorly, not unexpected for the recent surgery. A tract from a previous during is found anteriorly within the pelvis, extending through the right lateral pelvic ventral wall, again not unexpected. No evidence of abscess formation. The urinary bladder is decompressed. Adnexa regions unremarkable. Peritoneum/Retroperit oneum: Abdominal aorta normal in caliber. Superior mesenteric artery is enhancing. No lymphadenopathy. Bones/Soft Tissues: Fat stranding at trocar sites is noted. The extra-abdominal and extra pelvic soft tissues are otherwise unremarkable. No acute or suspicious bony abnormalities are detected. [facility] RIS CONSOLIDATED Berny Shah M D - 09/23/2022 EXAMINATION: CT OF THE ABDOMEN AND PELVIS WITH CONTRAST 09/23/2022 8:44 am TECHNIQUE: CT of the abdomen and pelvis was performed with the administration of intravenous contrast. Multiplanar reformatted images are provided for review. Automated exposure control, iterative reconstruction, and/or weight based adjustment of the mA/kV was utilized to reduce the radiation dose to as low as reasonably achievable. COMPARISON: 07/27/2022 HISTORY: ORDERING SYSTEM PROVIDED HISTORY: Generalized abdominal pain; 2 wks post hysterectomy TECHNOLOGIST PROVIDED HISTORY: Generalized abdominal pain; 2 wks post hysterectomy Decision Support Exception - unselect if not a suspected or confirmed emergency medical condition->Emergency Medical Condition (MA) FINDINGS: Lower Chest: There are new infiltrates seen within the lower lobes bilaterally. Base of the heart is unremarkable. Organs: There is diffuse hepatic steatosis. No focal or acute hepatic abnormality identified. Gallbladder is surgically absent. Portal vein is patent. Spleen unremarkable. Adrenals unremarkable. Pancreas unremarkable. No acute or suspicious renal abnormality. GI/Bowel: Small moderate-sized hiatal hernia. Stomach otherwise unremarkable. Small bowel unremarkable. Mild diverticulosis of the large bowel is present without CT evidence of diverticulitis. Large bowel otherwise unremarkable. The appendix is not well visualized. No asymmetric pericecal inflammation is seen to suggest acute appendicitis. Pelvis: Fat stranding is seen in the vaginal cough extending to the lateral aspect of the pelvis, greater anteriorly, not unexpected for the recent surgery. A tract from a previous during is found anteriorly within the pelvis, extending through the right lateral pelvic ventral wall, again not unexpected. No evidence of abscess formation. The urinary bladder is decompressed. Adnexa regions unremarkable. Peritoneum/Retroperit oneum: Abdominal aorta normal in caliber. Superior mesenteric artery is enhancing. No lymphadenopathy. Bones/Soft Tissues: Fat stranding at trocar sites is noted. The extra-abdominal and extra pelvic soft tissues are otherwise unremarkable. No acute or suspicious bony abnormalities are detected. IMPRESSION: Infiltrates and consolidation are found within the lower lungs bilaterally, compatible with pneumonia and/or aspiration, new when compared to the previous exam. Postsurgical changes within the pelvis, with expected postsurgical fat stranding. No evidence of abscess formation. [facility] Work Phone: Radiology Study observation (narrative) [facility] Work Phone: CT ABDOMEN PELVIS W IV CONTR AST Additional Contrast? NoneOrdered By: Berny Shah on 09-23-2022 [facility] Work Phone: Lactic Acidon 09-23-2022 Lactate (P zaire) [Moles/Vol] 1.4 mmol/L 0.5 - 2.2 mmol/L [facility] Lipaseon 09-23-2022 Lipase [Catalytic activity/Vol] 24 U/L 13 - 60 U/L [facility] Microscopic Urinalysison Epithelial Cells UA 2 TO 5 [facility] RBC clumps Auto (Urine sed) [#/Area] None [facility] Renal Epithelial, UA 0 TO 2 0 /HPF [facility] WBC, UA 0 TO 2 [facility] No Panel Informationon 09-23 [facility] Urinalysis with Reflex to Cu ltureon 09-23-2022 Bilirubin Urine SMALL Abnormal NEGATIVE [facility] Color, UA Yellow Yellow [facility] Glucose Auto test strip (U) [Mass/Vol] Negative NEGATIVE [facility] Interpretation and review of laboratory results Abnormal [facility] Ketones (U) [Mass/Vol] Negative NEGATIVE [facility] Leukocyte esterase Auto test strip Ql (U) Negative NEGATIVE [facility] Nitrite Auto test strip Ql (U) Negative NEGATIVE [facility] Protein (U) [Mass/Vol] 6.0 mg/dL 5.0 - 9.0 [facility] Protein (U) [Mass/Vol] 1+ Abnormal NEGATIVE [facility] Specific [place], UA High 1.010 - 1.020 B ON [facility] Turbidity UA Clear Clear [facility] Urine Hgb Negative NEGATIVE [facility] Urobilinogen, Urine Normal Normal [facility] XR CHEST PORTABLEon 09-24-19 23 1. Mild vascular congestion without overt edema. 2. Patchy opacities in the lung bases, left greater than right, as seen with recent abdominal CT. [facility] EXAMINATION: ONE XRAY VIEW OF THE CHEST 09/23/2022 1:05 pm COMPARISON: Chest radiograph 08/25/2022. Abdominal CT today. HISTORY: ORDERING SYSTEM PROVIDED HISTORY: sob TECHNOLOGIST PROVIDED HISTORY: sob FINDINGS: Shallow inflation. Mild vascular congestion and peribronchial wall thickening. No septal thickening or effusion appreciated. Streaky opacities in the lung bases are noted, left greater than right. No evidence for pneumothorax. No acute osseous abnormality appreciated. The cardiac and mediastinal contours appear unchanged. [facility] Aj De Leon MD - 09/23/2022 EXAMINATION: ONE XRAY VIEW OF THE CHEST 09/23/2022 1:05 pm COMPARISON: Chest radiograph 08/25/2022. Abdominal CT today. HISTORY: ORDERING SYSTEM PROVIDED HISTORY: sob TECHNOLOGIST PROVIDED HISTORY: sob FINDINGS: Shallow inflation. Mild vascular congestion and peribronchial wall thickening. No septal thickening or effusion appreciated. Streaky opacities in the lung bases are noted, left greater than right. No evidence for pneumothorax. No acute osseous abnormality appreciated. The cardiac and mediastinal contours appear unchanged. IMPRESSION: 1. Mild vascular congestion without overt edema. 2. Patchy opacities in the lung bases, left greater than right, as seen with recent abdominal CT. [facility] [employer] Work Phone: Radiology Study observation (narrative) [facility] [employer] Work Phone: XR CHEST PORTABLEOrdered By: Aj De Leon on 09-23-[address] [facility] [employer] Work Phone: LARGE JOINT/BURSA INJECTION AND/OR ASPIRATIONon 09-10-2022 Radiology Study observation (narrative) [facility] CBC with Auto Differentialon 09-09-2022 Absolute Eos # 0.04 [facility] Absolute Immature Granulocyte 0.04 [facility] Absolute Lymph # 1.55 [facility] Absolute [place] # 0.84 [facility] Basophils (Bld) [#/Vol] 0.04 10*3/uL [facility] Basophils/100 WBC (Bld) 0 % 0 - 2 % [facility] Eosinophils/100 WBC (Bld) 0 % Low 1 - 4 % [facility] Hematocrit (Bld) [Volume fraction] 38.0 % 36.3 - 47.1 % [facility] Hemoglobin (Bld) [Mass/Vol] 11.7 g/dL Low 11.9 - 15.1 g/dL [facility] Immature granulocytes/100 WBC (Bld) 0 % 0 [facility] Interpretation and review of laboratory results Abnormal [facility] Lymphocytes/100 WBC (Bld) 16 % Low 24 - 43 % [facility] MCH (RBC) [Entitic mass] 26.8 pg 25.2 - 33.5 pg [facility] MCHC (RBC) [Mass/Vol] 30.8 g/dL 28.4 - 34.8 g/dL [facility] MCV (RBC) [Entitic vol] 87.2 fL 82.6 - 102.[address] [facility] Monocytes/100 WBC (Bld) 9 % 3 - 12 % [facility] NRBC Automated 0.0 0.0 per 100 WBC [facility] Platelet distribution width (Bld) [Ratio] 15.1 % High 11.8 - 14.4 % [facility] Platelet mean volume (Bld) [Entitic vol] 9.5 fL 8.1 - 13.5 fL [facility] Platelets (Bld) [#/Vol] 250 10*3/uL [facility] RBC (Bld) [#/Vol] 4.36 10*6/uL 3.95 - 5.1 1 m/uL [facility] RBC (Bld) [#/Vol] ANISOCYTOSIS PRESENT [facility] Segmented neutrophils/100 WBC (Bld) 75 % High 36 - 65 % [facility] Segs Absolute 7.09 [facility] WBC (Bld) [#/Vol] 9.6 10*3/uL [facility] CBC with Diffon 09-09-2022 Abs. Basophil 0.04 k/uL Normal 0.00-0.20 [facility] Comment on above: Performed By: #### C DP #### [facility] [employer] [address] [place] [address] [employer] Metal Worker: Aramis Hoffmann MD Abs.Imm.Granulocyte 0.04 k/uL Normal 0.00-0.30 [facility] Comment on above: Performed By: #### C DP #### [facility] [employer] [address] [place] [address] [employer]namental Metal Worker: Aramis Hoffmann MD Abs.Neutrophil (Seg) 7.09 k/uL Normal 1.50-8.10 [facility] Comment on above: Performed By: #### C DP #### [facility] [employer] [address] [place] [address] [employer] Worker: Aramis Hoffmann MD Basophils/100 WBC (Bld) 0 % Normal 0-2 [facility] Comment on above: Performed By: #### C DP #### [facility] [employer] [address] [place] [address] [employer]nament[employer] Worker: Aramis Hoffmann MD Eosinophils (Bld) [#/Vol] 0.04 10*3/uL Normal 0.00-0.44 [facility] Comment on above: Performed By: #### C DP #### [facility] [employer] [address] [place] [address] [employer] Worker: Aramis Hoffmann MD Eosinophils/100 WBC (Bld) 0 % Low 1-4 [facility] Comment on above: Performed By: #### C DP #### [address] [address] [employer] Worker: Aramis Hoffmann MD Erythrocyte distribution width (RBC) [Ratio] 15.1 % High 11.8-14.4 [facility] Comment on above: Performed By: #### C DP #### [address] [address] [employer] Worker: Aramis Hoffmann MD Hematocrit (Bld) [Volume fraction] 38.0 % Normal 36.3-47.1 [facility] Comment on above: Performed By: #### C DP #### [address] [address] [employer] Worker: Aramis Hoffmann MD Hemoglobin (Bld) [Mass/Vol] 11.7 g/dL Low 11.9-15.1 [facility] Comment on above: Performed By: #### C DP #### [address] [address] [employer] Worker: Aramis Hoffmann MD Immature granulocytes/100 WBC (Bld) 0 % Normal 0 [facility] Comment on above: Performed By: #### C DP #### [address] [address] [employer] Worker: Aramis Hoffmann MD Lymphocytes (Bld) [#/Vol] 1.55 10*3/uL Normal 1.10-3.70 [facility] Comment on above: Performed By: #### C DP #### [address] [address] [employer] Worker: Aramis Hoffmann MD Lymphocytes/100 WBC (Bld) 16 % Low 24-43 [facility] Comment on above: Performed By: #### C DP #### [address] [address] [employer] Worker: Aramis Hoffmann MD MCH (RBC) [Entitic mass] 26.8 pg Normal 25.2-33.5 [facility] Comment on above: Performed By: #### C DP #### [address] [address] [employer] Worker: Aramis Hoffmann MD MCHC (RBC) [Mass/Vol] 30.8 g/dL Normal 28.4-34.8 [facility] Comment on above: Performed By: #### C DP #### [address] [address] [employer]nament[employer] Worker: Aramis Hoffmann MD MCV (RBC) [Entitic vol] 87.2 fL Normal 82.6-102.9 [facility] Comment on above: Performed By: #### C DP #### [place] [address] Ornamental Metal Worker: Aramis Hoffmann MD Monocytes (Bld) [#/Vol] 0.84 10*3/uL Normal 0.10-1.20 [facility] Comment on above: Performed By: #### C DP #### [address] [address] [employer] Worker: Aramis Hoffmann MD Monocytes/100 WBC (Bld) 9 % Normal 3-12 [facility] Comment on above: Performed By: #### C DP #### [place] [address] [employer]namental Metal Worker: Aramis Hoffmann MD Neutrophil (Seg) 75 % High 36-65 [facility] Comment on above: Performed By: #### C DP #### [address] [address] [employer] Worker: Aramis Hoffmann MD NRBC Automated 0.0 per 100 WBC Normal 0.0 [facility] Comment on above: Performed By: #### C DP #### [address] [address] [employer]namental [employer] Worker: Aramis Hoffmann MD Platelet mean volume (Bld) [Entitic vol] 9.5 fL Normal 8.1-13.5 [facility] Comment on above: Performed By: #### C DP #### [id number] [place] [address] [employer] Worker: Aramis Hoffmann MD Platelets (Bld) [#/Vol] 250 10*3/uL Normal 138-453 [facility] Comment on above: Performed By: #### C DP #### [address] [address] [employer]namental [employer] Worker: Aramis Hoffmann MD RBC (Bld) [#/Vol] 4.36 10*6/uL Normal 3.95-5.11 [facility] Comment on above: Performed By: #### C DP #### [address] [address] [employer] Worker: Aramis Hoffmann MD RBC morphology finding Nom (Bld) ANISOCYTOSIS PRESENT Normal [facility] Comment on above: Performed By: #### C DP #### [id number] [place] [address] [employer]namental Metal Worker: Aramis Hoffmann MD WBC (Bld) [#/Vol] 9.6 10*3/uL Normal 3.5-11.3 [facility] Comment on above: Performed By: #### C DP #### [address] [address] Ornamental Metal Worker: Aramis Hoffmann MD POC Glucose Fingerstickon Glucose [Mass/Vol] 129 mg/dL High 65 - 105 mg/dL [facility] Interpretation and review of laboratory results Abnormal [facility] Glucose [Mass/Vol] 135 mg/dL High 65 - 105 mg/dL [facility] Interpretation and review of laboratory results Abnormal [facility] CA 125on 09-08-2022 CA 125 18 U/mL Normal <38 [facility] Comment on above: Result Comment: The Mallorie ECLIA assay is used. Results obtained with different assay methods cannot be used interchangeable. Performed By: #### C MPX, CA125, CDP #### [facility] [address] [place] [address] Ornamental Metal Worker: Aramis Hoffmann MD Cancer Ag 125 Qn 18 [arb'U]/mL NINF - 38 U/mL [facility] Comment on above: The Mallorie ECLIA as say is used. Results obtained with different assay methods cannot be used interchangeable. [facility] CBC auto differentialon 08-29 Absolute Eos # 0.19 [place] [facility] Absolute Immature Granulocyte 0.04 [facility] Absolute Lymph # 1.63 [facility] Absolute [place] # 0.78 [facility] RS [facility] Basophils (Bld) [#/Vol] 0.05 10*3/uL [facility] Basophils/100 WBC (Bld) 1 % 0 - 2 % [facility] Eosinophils/100 WBC (Bld) 2 % 1 - 4 % [facility] Hematocrit (Bld) [Volume fraction] 42.8 % 36.3 - 47.1 % [facility] Hemoglobin (Bld) [Mass/Vol] 13.4 g/dL 11.9 - 15.1 g/dL [facility] Immature granulocytes/100 WBC (Bld) 1 % High 0 [facility] Interpretation and review of laboratory results Abnormal [facility] Lymphocytes/100 WBC (Bld) 20 % Low 24 - 43 % [facility] MCH (RBC) [Entitic mass] 26.7 pg 25.2 - 33.5 pg [facility] MCHC (RBC) [Mass/Vol] 31.3 g/dL 28.4 - 34.8 g/dL [facility] MCV (RBC) [Entitic vol] 85.3 fL 82.6 - 102.9 fL [facility] Monocytes/100 WBC (Bld) 10 % 3 - 12 % [facility] NRBC Automated 0.0 0.0 per 100 WBC [facility] Platelet distribution width (Bld) [Ratio] 15.0 % High 11.8 - 14.4 % [facility] Platelet mean volume (Bld) [Entitic vol] 10.0 fL 8.1 - 13.5 fL [facility] Platelets (Bld) [#/Vol] 255 10*3/uL [facility] RBC (Bld) [#/Vol] 5.02 10*6/uL 3.95 - 5.1 1 m/uL [facility] RBC (Bld) [#/Vol] ANISOCYTOSIS PRESENT [facility] Segmented neutrophils/100 WBC (Bld) 66 % High 36 - 65 % [facility] Segs Absolute 5.36 [facility] WBC (Bld) [#/Vol] 8.1 10*3/uL [facility] CBC with Diffon 09-08-2022 Abs. Basophil 0.05 k/uL Normal 0.00-0.20 [facility] Comment on above: Performed By: #### C MELITA CA125, CDP #### [facility] [address] [place] [address] Ornamental Metal Worker: Aramis Hoffmann MD Abs.Imm.Granulocyte 0.04 k/uL Normal 0.00-0.30 [facility] Comment on above: Performed By: #### C MPX CA125, CDP #### [employer] [address] [place], [place] [id number] Ornamental Metal Worker: Aramis Hoffmann MD Abs.Neutrophil (Seg) 5.36 k/uL Normal 1.50-8.10 [facility] Comment on above: Performed By: #### C MPX CA125, CDP #### [employer] [address] [place], [place] [id number] Ornamental Metal Worker: Aramis Hoffmann MD Basophils/100 WBC (Bld) 1 % Normal 0-2 [facility] Comment on above: Performed By: #### C MPX, CA125, CDP #### [address] [address] [employer] Worker: Aramis Hoffmann MD Eosinophils (Bld) [#/Vol] 0.19 10*3/uL Normal 0.00-0.44 [facility] Comment on above: Performed By: #### C MPX, CA125, CDP #### [facility] [employer] [address] [place] [address] [employer] Worker: Aramis Hoffmann MD Eosinophils/100 WBC (Bld) 2 % Normal 1-4 [facility] Comment on above: Performed By: #### C MPX, CA125, CDP #### [address] [address] [employer]namental Metal Worker: Aramis Hoffmann MD Erythrocyte distribution width (RBC) [Ratio] 15.0 % High 11.8-14.4 [facility] Comment on above: Performed By: #### C MPX CA125, CDP #### [address] [address] Ornamental Metal Worker: Aramis Hoffmann MD Hematocrit (Bld) [Volume fraction] 42.8 % Normal 36.3-47.1 [facility] Comment on above: Performed By: #### C MPX, CA125, CDP #### [facility] [employer] [address] [place] [address] Ornamental Metal Worker: Aramis Hoffmann MD Hemoglobin (Bld) [Mass/Vol] 13.4 g/dL Normal 11.9-15.1 [facility] Comment on above: Performed By: #### C MPX, CA125, CDP #### [facility] [employer] [address] [place] [address] Ornamental Metal Worker: Aramis Hoffmann MD Immature granulocytes/100 WBC (Bld) 1 % High 0 [facility] Comment on above: Performed By: #### C MPX, CA125, CDP #### [address] [address] Ornamental Metal Worker: Aramis Hoffmann MD Lymphocytes (Bld) [#/Vol] 1.63 10*3/uL Normal 1.10-3.70 [facility] Comment on above: Performed By: #### C MPX, CA125, CDP #### [place] [address] Ornamental Metal Worker: Aramis Hoffmann MD Lymphocytes/100 WBC (Bld) 20 % Low 24-43 [facility] Comment on above: Performed By: #### C MPRob, CA125, CDP #### [place] [address] Ornamental Metal Worker: Aramis Hoffmann MD MCH (RBC) [Entitic mass] 26.7 pg Normal 25.2-33.5 [facility] Comment on above: Performed By: #### C MELITA CA125, CDP #### [place] [address] Ornamental Metal Worker: Aramis Hoffmann MD MCHC (RBC) [Mass/Vol] 31.3 g/dL Normal 28.4-34.8 [facility] Comment on above: Performed By: #### C MPX CA125, CDP #### [place] [address] Ornamental Metal Worker: Aramis Hoffmann MD MCV (RBC) [Entitic vol] 85.3 fL Normal 82.6-102.9 [facility] Comment on above: Performed By: #### C MPX, CA125, CDP #### [address] [address] Ornamental Metal Worker: Aramis Hoffmann MD Monocytes (Bld) [#/Vol] 0.78 10*3/uL Normal 0.10-1.20 [facility] Comment on above: Performed By: #### C MPX, CA125, CDP #### [address] [address] Ornamental Metal Worker: Aramis Hoffmann MD Monocytes/100 WBC (Bld) 10 % Normal 3-12 [facility] Comment on above: Performed By: #### C MPX, CA125, CDP #### [address] [address] Ornamental Metal Worker: Aramis Hoffmann MD Neutrophil (Seg) 66 % High 36-65 [facility] Comment on above: Performed By: #### C MPX, CA125, CDP #### [address] [address] Ornamental Metal Worker: Aramis Hoffmann MD NRBC Automated 0.0 per 100 WBC Normal 0.0 [facility] Comment on above: Performed By: #### C MPX, CA125, CDP #### [address] [address] Ornamental Metal Worker: Aramis Hoffmann MD Platelet mean volume (Bld) [Entitic vol] 10.0 fL Normal 8.1-13.5 [facility] Comment on above: Performed By: #### C MPX, CA125, CDP #### [address] [address] Ornamental Metal Worker: Aramis Hoffmann MD Platelets (Bld) [#/Vol] 255 10*3/uL Normal 138-453 [facility] Comment on above: Performed By: #### C MPX, CA125, CDP #### [address] [address] Ornamental Metal Worker: Aramis Hoffmann MD RBC (Bld) [#/Vol] 5.02 10*6/uL Normal 3.95-5.11 [facility] Comment on above: Performed By: #### C MPX, CA125, CDP #### [facility] [employer] [address] [place] [address] Ornamental Metal Worker: Aramis Hoffmann MD RBC morphology finding Nom (Bld) ANISOCYTOSIS PRESENT Normal [facility] Comment on above: Performed By: #### C MPX, CA125, CDP #### [facility] [employer] [address] [place] [address] Ornamental Metal Worker: Aramis Hoffmann MD WBC (Bld) [#/Vol] 8.1 10*3/uL Normal 3.5-11.3 [facility] Comment on above: Performed By: #### C MPX, CA125, CDP #### [address] [address] Ornamental Metal Worker: Aramis Hoffmann MD Comp Metabolic Pr/rfx MGon 0 - AST [Catalytic activity/Vol] 25 U/L Normal <32 [facility] Comment on above: Performed By: #### C MPX, CA125, CDP #### [address] [address] Ornamental Metal Worker: Aramis Hoffmann MD Albumin [Mass/Vol] 3.7 g/dL Normal 3.5-5.2 [facility] Comment on above: Performed By: #### C MPX, CA125, CDP #### [address] [address] Ornamental Metal Worker: Aramis Hoffmann MD Albumin/Glob Ratio 1.1 Normal 1.0-2.5 [facility] Comment on above: Performed By: #### C MPX, CA125, CDP #### [facility] [employer] [address] [place] [address] Ornamental Metal Worker: Aramis Hoffmann MD Alkaline Phos 97 U/L Normal 35-104 [facility] Comment on above: Performed By: #### C MPX, CA125, CDP #### [facility] [address] [place] [address] Ornamental Metal Worker: Aramis Hoffmann MD ALT [Catalytic activity/Vol] 27 U/L Normal 5-33 [facility] Comment on above: Performed By: #### C MPX, CA125, CDP #### [facility] [address] [place] [address] [employer]namental Metal Worker: Aramis Hoffmann MD Anion gap [Moles/Vol] 8 mmol/L Low 9-17 [facility] Comment on above: Performed By: #### C MPX, CA125, CDP #### [facility] [employer] [address] [place] [address] Ornamental Metal Worker: Aramis Hoffmann MD Bilirubin [Mass/Vol] 0.3 mg/dL Normal 0.3-1.2 [facility] Comment on above: Performed By: #### C MPX, CA125, CDP #### [facility] [employer] [address] [place] [address] Ornamental Metal Worker: Aramis Hoffmann MD Calcium [Mass/Vol] 9.2 mg/dL Normal 8.6-10.4 [facility] Comment on above: Performed By: #### C MPX, CA125, CDP #### [facility] [employer] [address] [place] [address] Ornamental Metal Worker: Aramis Hoffmann MD Chloride [Moles/Vol] 98 mmol/L Normal 98-107 [facility] Comment on above: Performed By: #### C MPX, CA125, CDP #### [facility] [employer] [address] [place] [address] Ornamental Metal Worker: Aramis Hoffmann MD CO2 [Moles/Vol] 27 mmol/L Normal 20-31 [facility] Comment on above: Performed By: #### C MPX, CA125, CDP #### [facility] [address] [place] [address] Ornamental Metal Worker: Aramis Hoffmann MD Creatinine [Mass/Vol] 0.72 mg/dL Normal 0.50-0.90 [facility] Comment on above: Performed By: #### C MPX CA125, CDP #### [address] [address] Ornamental Metal Worker: Aramis Hoffmann MD GFR/1.73 sq M.predicted among non-blacks MDRD (S/P/Bld) [Vol rate/Area] mL/min/{1.73_m2} Normal >60 [facility] Comment on above: Result Comment: These results are not intended for use in patients <18 years of age. eGFR results are calculated without a race factor using the 2020 CKD-EPI equation. Careful clinical correlation is recommended, particularly when comparing to results calculated using previous equations. The CKD-EPI equation is less accurate in patients with extremes of muscle mass, extra-renal metabolism of creatine, excessive creatine ingestion, or following therapy that affects renal tubular secretion. Performed By: #### C MELITA CA125, CDP #### [facility] [employer] [address] [place] [address] Ornamental Metal Worker: Aramis Hoffmann MD Glucose [Mass/Vol] 130 mg/dL High 70-99 [facility] Comment on above: Performed By: #### C MELITA CA125, CDP #### [facility] [employer] [address] [place] [address] Ornamental Metal Worker: Aramis Hoffmann MD Potassium [Moles/Vol] 4.6 mmol/L Normal 3.7-5.3 [facility] Comment on above: Performed By: #### C BATHSEVAX CA125, CDP #### [facility] [employer] [address] [place] [address] Ornamental Metal Worker: Aramis Hoffmann MD Protein [Mass/Vol] 7.0 g/dL Normal 6.4-8.3 [facility] Comment on above: Performed By: #### C MPX, CA125, CDP #### [facility] [address], [place] [id number] Ornamental Metal Worker: Aramis Hoffmann MD Sodium [Moles/Vol] 133 mmol/L Low 135-144 [facility] Comment on above: Performed By: #### C MPX, CA125, CDP #### [facility] [address], [place] [id number] Ornamental Metal Worker: Aramis Hoffmann MD Urea nitrogen [Mass/Vol] 12 mg/dL Normal 6-20 [facility] Comment on above: Performed By: #### C MPX, CA125, CDP #### [facility] [address], [place] [id number] Ornamental Metal Worker: Aramis Hoffmann MD Comprehensive Metabolic Pane l w/ Reflex to MGon 09-08-2022 Albumin [Mass/Vol] 3.7 g/dL 3.5 - 5.2 g/dL [facility] Albumin/Globulin [Mass ratio] 1.1 {ratio} 1.0 - 2.5 [facility] ALP [Catalytic activity/Vol] 97 U/L 35 - 104 U/L [facility] ALT [Catalytic activity/Vol] 27 U/L 5 - 33 U/L [facility] Anion gap [Moles/Vol] 8 mmol/L Low 9 - 17 mmol/L [facility] AST [Catalytic activity/Vol] 25 U/L NINF - 32 U/L [facility] Bilirubin [Mass/Vol] 0.3 mg/dL 0.3 - 1 .2 mg/dL [facility] Calcium [Mass/Vol] 9.2 mg/dL 8.6 - 10. 4 mg/dL [facility] Chloride [Moles/Vol] 98 mmol/L 98 - 10 7 mmol/L [facility] CO2 [Moles/Vol] 27 mmol/L 20 - 31 mmol/L [facility] Creatinine [Mass/Vol] 0.72 mg/dL 0.50 - 0.90 mg/dL [facility] GFR/1.73 sq M.predicted MDRD (S/P/Bld) [Vol rate/Area] - PINF [facility] Comment on above: These results are not intended for use in patients <18 years of age. eGFR results are calculated without a race factor using the 2020 CKD-EPI equation. Careful clinical correlation is recommended, particularly when comparing to results calculated using previous equations. The CKD-EPI equation is less accurate in patients with extremes of muscle mass, extra-renal metabolism of creatine, excessive creatine ingestion, or following therapy that affects renal tubular secretion. Glucose [Mass/Vol] 130 mg/dL High 70 - 99 mg/dL [facility] Interpretation and review of laboratory results Abnormal [facility] Potassium [Moles/Vol] 4.6 mmol/L 3.7 - 5.3 mmol/L [facility] Protein [Mass/Vol] 7.0 g/dL 6.4 - 8.3 g/dL [facility] Sodium [Moles/Vol] 133 mmol/L Low 135 - 144 mmol/L [facility] Urea nitrogen [Mass/Vol] 12 mg/dL 6 - 20 mg/dL [facility] HCG Screen, Bloodon 09-09-19 HCG Screen, Blood Negative Normal [facility]G [facility] Comment on above: Result Comment: Spec imens with hCG levels near the threshold of the test (25 mIU/mL) may give a negative or indeterminate result. In such cases, another test should be performed with a new specimen in 48-72 hours. If early is suspected clinically in this setting, correlation with quantitative serum b-hCG level is suggested. [employer] has confirmed the use of plasma for this test. This has not been cleared or approved by the U.S. Food and Drug Administration. The FDA has determined that such clearance is not necessary. Performed By: #### H #### [facility] [address] [place] [address] Ornamental Metal Worker: Aramis Hoffmann MD HCG, SERUM, QUALITATIVEon hCG Qual Negative NEGATIVE [facility] Comment on above: Specimens with hCG l evels near the threshold of the test (25 mIU/mL) may give a negative or indeterminate result. In such cases, another test should be performed with a new specimen in 48-72 hours. If early is suspected clinically in this setting, correlation with quantitative serum b-hCG level is suggested. [employer] has confirmed the use of plasma for this test. This has not been cleared or approved by the U.S. Food and Drug Administration. The FDA has determined that such clearance is not necessary. [facility] OPERATIVE REPORTon 3 OPERATIVE REPORT [address] [id number] OPERATIVE REPORT PATIENT NAME: SARAH HARRIS : 1975 MED REC NO: [id number] ROOM: 0444 ACCOUNT NO: [id number] ADMIT DATE: 09/08/2022 PROVIDER: Clemencia Campos MD DATE OF PROCEDURE: 09/08/2022 PREOPERATIVE DIAGNOSES: Morbid obesity, pelvic pain, pelvic mass, post ablation syndrome. POSTOPERATIVE DIAGNOSES: Morbid obesity, pelvic pain, pelvic mass, post ablation syndrome, pelvic endometriosis, and retroperitoneal fibrosis. OPERATION PERFORMED: Robotic radical hysterectomy, bilateral salpingo-oophorectomy . SURGEON: Clemencia Campos MD MANAGER CONVENTION: Benny, PGY-4, Resident ANESTHESIA: General with endotracheal intubation. COMPLICATIONS: None. ESTIMATED BLOOD LOSS: 50 mL. SPECIMENS: Sent to pathology lab; uterus, cervix, tubes, and ovaries. OPERATIVE FINDINGS: The patient had retroperitoneal fibrosis, posterior cul-de-sac endometriosis, endometriosis apparently involving both tubes and ovaries. She had a 5 cm left adnexal cyst, enlargement of the right ovary, inflammation in the fallopian tubes, adhesions between the rectum and the back side of the uterus. She had some anterior adhesions between the bladder and the vagina as well. 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 There was no harm or injury to bladder, ureters, colon, or bowel at any point during this operation. Cystoscopy was performed at the end of the operation, which confirmed that the bladder was normal with urine briskly spilling from both ureteral orifices. DISPOSITION: The patient to recovery room stable. DESCRIPTION: Informed consent was obtained. The patient was brought to the operating suite. She was carefully positioned, prepped and draped in the usual manner. Careful attention was paid to make certain that no undue tension, traction, or pressure was on any neuromuscular structures at any point during the operation. Catheter was inserted into the bladder in a sterile fashion. Uterine manipulator was placed into the uterus and around the cervix. A 5 mm incision was made in the left upper quadrant. Camera and trocar inserted into the peritoneum under direct visualization. Peritoneal placement confirmed. Abdomen insufflated with carbon dioxide gas. The patient was placed into steep Trendelenburg position. Left lower quadrant incision made. Robotics 8 mm trocar was placed. She had some umbilical adhesions from previous umbilical hernia repair. These were taken down with a 5-mm LigaSure device. The remaining three trocars for robotic surgery were placed in the usual manner. The pelvis and abdomen were thoroughly explored. The aforementioned findings were noted in the pelvis. Robotics platform was docked to the abdominal trocars. Instruments were inserted under direct visualization. The pelvic sidewalls were opened up bilaterally. The ureters were dissected out throughout their pelvic course from the pelvic brim down to the bladder. The round ligaments were divided. The bladder flap was taken down sharply anteriorly. 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 There was some posterior adhesions. The rectum and rectosigmoid were taken off the back side of the uterus. There was no harm to bladder, ureters, colon, or bowel at any point during the operation. The uterine vessels were isolated bilaterally lateral to the ureters and taken down and sealed and divided laterally. The broad ligaments were incised. The cardinal and uterosacral ligaments were taken down sequentially on each side. Anterior and posterior vaginotomy incisions were made. These were united circumferentially around the uterine manipulator cup. The uterus, cervix, tubes, and ovaries were removed transvaginally. The vaginal cuff was meticulously closed with two #2-0 V-Loc sutures brought from each angle, crisscrossed and locked in the midline. Excellent tight vaginal cuff closure achieved. A cystoscopy performed at the end of the operation, which confirmed that the bladder was normal with no harm or injury. Ureters were normal with urine seen briskly spilling from both ureteral orifices. Bowel and colon were thoroughly inspected and noted to be free from any harm or injury. There was some ongoing oozing in the pelvis, this was dried up with some monopolar and bipolar cautery. I placed some Surgicel powder in the pelvis for added hemostatic support. I brought a drain into the right lower quadrant and placed it across the pelvis to cross the vaginal cuff to prevent postoperative abscess formation. The drain was secured to the skin with 0 Prolene sutures. The fascia of the left upper quadrant incision, which had been (more content not included)... Normal [facility] POC Glucose Fingerstickon Glucose [Mass/Vol] 228 mg/dL High 65 - 105 mg/dL [facility] Interpretation and review of laboratory results Abnormal [facility] Glucose [Mass/Vol] 192 mg/dL High 65 - 105 mg/dL [facility] Interpretation and review of laboratory results Abnormal [facility] Glucose [Mass/Vol] 192 mg/dL High 65 - 105 mg/dL [facility] Interpretation and review of laboratory results Abnormal [facility] Glucose [Mass/Vol] 207 mg/dL High 65 - 105 mg/dL [facility] Interpretation and review of laboratory results Abnormal [facility] Glucose [Mass/Vol] 135 mg/dL High 65 - 105 mg/dL [facility] Interpretation and review of laboratory results Abnormal [facility] Surgical Pathologyon 023 Surgical Pathology (NOTE) -- Diagnosis -- UTERUS, CERVIX, BILATERAL FALLOPIAN TUBES AND OVARIES, HYSTERECTOMY WITH BILATERAL SALPINGECTOMY:-FOCI OF INACTIVE ENDOMETRIUM WITH TREATMENT EFFECT. -FOCAL ADENOMYOSIS. -BILATERAL OVARIES WITH BENIGN CYSTS.-BENIGN CERVIX AND BILATERAL FALLOPIAN TUBES. Joan Claire Electronically Signed Out 06/03/1109/09/2022 Clinical Information Pre-op Diagnosis: POST ABLATION SYNDROME, SEVERE PELVIC PAIN Operative Findings: UTERUS, CERVIX, BILATERAL FALLOPIAN TUBES OVARIES Operation Performed: XI ROBOTIC LAPAROSCOPIC TOTAL HYSTERECTOMY, BSO, POSSIBLE EXPLORATORY LAPAROTOMY tm Source of Specimen A: UTERUS,CERVIX, BILATERAL FALLOPIAN TUBES AND OVARIES Gross Description SARAH KIMBERLY, UTERUS, CERVIX, BILATERAL FALLOPIAN TUBES AND OVARIES Uterus with attached cervix and bilateral adnexa. Dimensions: Uterus and cervix 9.8 x 6.2 x 4.0 cm. Weight: Uterus and cervix 111 grams, left tube and ovary 25 grams, right tube and ovary 21 grams. Serosa: [place]-amador. Cervix: 4.8 x 4.5 x 4.3 cm, unremarkable with a patent os. Endometrium: The cavity is 4.5 x 1.0 cm and is retracted consistent with previous ablation. Identifiable endometrium is granular, pink-amador and 0.1 cm in thickness. Myometrium: The myometrium has a maximum thickness of 1.3 cm. The cut surface is finely trabecular with no mass lesion. Tubes/ovaries: The left fimbriated fallopian tube segment is 8.5 cm long x 0.5 cm in diameter with a pink-red serosa and an unremarkable lumen. The 4.5 x 3.5 x 3.0 cm intact left ovary has a amador-yellow external surface. Sectioning reveals a 2.2 cm intact unilocular cyst that contains serous fluid and has a smooth amador lining. The right fimbriated fallopian tube segment is 8.8 cm long x 0.7 cm in diameter with a pink-red serosa and an unremarkable lumen. The 3.8 x 2.5 x 2.2 cm intact right ovary has a cerebriform amador-yellow external surface. Sectioning reveals a multicystic cut surface and the cysts measure up to 2.0 cm, contain serous fluid and have smooth linings. Cassette summary: 1 anterior cervix, 2 posterior cervix, 3-4 anterior endomyometrium full thickness sections, 5-6 posterior endomyometrium full thickness sections, 7-11 left tube and ovary with tube in entirety, 12-16 right tube and ovary with tube in entirety. tm Microscopic Description Microscopic examination performed. SURGICAL PATHOLOGY CONSULTATION Patient Name: SAARH HARRIS [facility] Rec: [id number] Path Number: [id number] [facility] ANATOMIC PATHOLOGY [address] [place] [id number] Normal [facility] Comment on above: Performed By: #### P PPVS #### [employer] [address] [place] [address] Ornamental Metal Worker: Aramis Hoffmann MD Type + Screenon 09-08-2022 Type + Screen Sample Expiration 09/11/2022,2359 Arm Band Number [id number] ABO/Rh(D) O POSITIVE Antibody Screen NOT TESTED Antibody Ident Anti-Rahman(A) Present MIGUEL ANGEL, Anti-IgG Conner Serum NEGATIVE Unit Number [id number] Blood Component Type Leukocyte Reduced Red Cell Unit Division 00 Status of Unit REL FROM ALLOC Transfusion Status OK TO TRANSFUSE Crossmatch Result COMPATIBLE Unit Number [id number] Blood Component Type Leukocyte Reduced Red Cell Unit Division 00 Status of Unit REL FROM ALLOC Transfusion Status OK TO TRANSFUSE Crossmatch Result COMPATIBLE Unit Number [id number] Blood Component Type Leukocyte Reduced Red Cell Unit Division 00 Status of Unit REL FROM ALLOC Transfusion Status OK TO TRANSFUSE Crossmatch Result COMPATIBLE Unit Number [id number] Blood Component Type Leukocyte Reduced Red Cell Unit Division 00 Status of Unit REL FROM ALLOC Transfusion Status OK TO TRANSFUSE Crossmatch Result COMPATIBLE Normal [facility] Comment on above: Performed By: #### T YS #### [employer] [address] [place] [id number] Ornamental Metal Worker: Aramis Hoffmann MD EKG 12 leadOrdered By: Miquel Roman hmad on 08-25-2022 Atrial Rate 90 BPM [employer] Phone: P Allen 56 degrees [employer] Phone: P-R Interval 172 ms [employer] Phone: Q-T Interval 354 ms [employer] Phone: QRS Duration 74 ms [employer] Phone: QTc Calculation (Bazett) 433 ms [employer] Phone: R Allen 38 degrees [employer] Phone: T Allen 29 degrees [employer] Phone: Ventricular Rate 90 BPM [employer] Phone: [employer] Phone: EKG 12 leadon 08-25-2022 Normal sinus rhythm Normal ECG When compared with ECG of 04-DEC-2021 10:24, No significant change was found Confirmed by Miquel Santos MD ([id number]) on 08/25/2022 3:15:19 PM [facility] Miquel Santos MD - 08/25/2022 Normal sinus rhythm Normal ECG When compared with ECG of 04-DEC-2021 10:24, No significant change was found Confirmed by Miquel Santos MD ([id number]) on 08/25/2022 3:15:19 PM [facility] [employer] Phone: LARGE JOINT/BURSA INJECTION AND/OR ASPIRATIONon 08-14-2022 Jose London ATC 09/10/2022 11:45 PM LARGE JOINT/BURSA INJECTION AND/OR ASPIRATION Date/Time: 08/14/2022 12:40 PM Supporting Documentation Indications: pain and osteoarthritis Procedure Details: Location: sacroiliac - L sacroiliac joint Local Anesthetic: bupivacaine 0.5% and lidocaine 1% Total Local Anesthetic: 4 mLs Guidance: ultrasound Ultrasound probe size: 4 mHz curvilinear Images were saved electronically. Needle size: 22 G Needle Length: 4.0 inch Approach: posterior Medication Verification: I have personally verified and performed the final check of the medication(s) used in this procedure prior to administration. The following items were included during the verification process for medication(s) administered: drug name, strength, volume, expiration, physical integrity and appearance of the medication(s). Medications administered: 1 mL bupivacaine 0.5 %; 2 mL triamcinolone 40 MG/ML; 4 mL lidocaine 10 mg/mL; 5 mL sodium chloride (PF) 0.9 % Patient tolerance: patient tolerated the procedure well with no immediate complications Pre-Procedure Details The attending physician was present for the entire procedure. Consent: Consent was obtained prior to the procedure after discussion of the risks, benefits and alternatives, and expected outcomes were discussed with the patient. The possibilities of reaction to medication, bleeding, infection, the need for additional procedures, failure to diagnosis a condition, and creating a complication requiring operation were discussed with the patient. The patient concurred with the proposed plan, giving consent. Preparation: Patient was prepped in the usual sterile fashion. The patient was prepped with Chloraprep. [employer] [facility] [employer] [facility] Unspecified body regionon 08-14-2022 Image Storage This order is to facilitate the storage of the image. [employer] [facility] Estradiolon 07-31-2022 Estradiol 53.2 pg/mL 27 - 314 pg/mL [facility] Comment on above: FEMALES: Normally menstruating Luteal phase 33-298 Follicular phase 27-156 Midcycle phase 48-314 Postmenopausal (untreated) 5-50 Fulvestrant treatment will show an increased estradiol concentration with this methodology. Alternate methodologies are available upon request. Follicle Stimulating Hormone on 07-31-2022 FSH 7.3 [facility] Comment on above: Reference Range: Male: 1.5-12.4 Ovulating Female: Follicular Phase 3.5-12.5 Ovulation Phase 4.7-21.5 Luteal Phase 1.7-7.7 Postmenopausal Female: 25.8-134.8 No Panel Informationon 07-31 [facility] LOWER EXTREMITY INJECTIONon 06-23-2022 Keila Hemphill MD 06/23/2022 1:52 PM LOWER EXTREMITY INJECTION Date/Time: 06/23/2022 7:20 AM Supporting Documentation Indications: pain and therapeutic Procedure Details: Procedure: trigger point injection Location: spine - Trigger Point Injection Details: Bilateral lumbar paraspinal Needle size: 22 G Number of muscles injected: 1-2 muscle groups Medication Verification: I have personally verified and performed the final check of the medication(s) used in this procedure prior to administration. The following items were included during the verification process for medication(s) administered: drug name, strength, volume, expiration, physical integrity and appearance of the medication(s). Medications administered: 1 mL lidocaine 10 mg/mL; 1 mL bupivacaine 0.5 %; 80 mg triamcinolone 40 MG/ML; 4 mg dexAMETHasone 4 MG/ML Patient tolerance: patient tolerated the procedure well with no immediate complications Pre-Procedure Details The attending physician was present for the entire procedure. Consent: Consent was obtained prior to the procedure after discussion of the risks, benefits and alternatives, and expected outcomes were discussed with the patient. The possibilities of reaction to medication, bleeding, infection, the need for additional procedures, failure to diagnosis a condition, and creating a complication requiring operation were discussed with the patient. The patient concurred with the proposed plan, giving consent. Preparation: Patient was prepped in the usual sterile fashion. The patient was prepped with alcohol. [facility] Radiology Study observation (narrative) [facility] XR HIPS WITH PELVIS MATTHEW Lockett 2022 XR HIPS WITH PELVIS BILATERAL EXAM: XR HIPS WITH PELVIS BILATERAL HISTORY: Painful hip COMPARISON: None. FINDINGS: 2 views of the right hip, 2 views left hip and AP view of the pelvis. No fracture or dislocation. Mild degenerative change present right and left hips. The pelvic ring is intact. The soft tissues are unremarkable. Mild degenerative change also present sacroiliac joints. Pubic symphysis appears intact. IMPRESSION: 1. Mild degenerative changes right and left hips. 2. Degenerative changes sacroiliac joints. Normal [facility] XR LUMBAR SPINE (MIN 6 VIEWS )on 06-10-2022 FINDINGS/IMPRESSION: 1. Moderate degenerative change disc and facets L4-L5 and L5-S1. 2. Mild degenerative disc space narrowing otherwise. 3. No pars defects or fracture. 4. No abnormal motion on flexion-extension. 5. Symmetric moderate degenerative change at the SI joints. [facility] EXAM: XR LUMBAR SPIN E (MIN 6 VIEWS) HISTORY: Low back pain, unspecified back pain laterality, unspecified chronicity, unspecified whether sciatica present COMPARISON: CT abdomen pelvis 01/07/2022, lumbar spine series 04/13/2021. [facility] Jairo Mcdonald Jr., MD - 06/10/2022 EXAM: XR LUMBAR SPINE (MIN 6 VIEWS) HISTORY: Low back pain, unspecified back pain laterality, unspecified chronicity, unspecified whether sciatica present COMPARISON: CT abdomen pelvis 01/07/2022, lumbar spine series 04/13/2021. IMPRESSION: FINDINGS/IMPRESSION: 1. Moderate degenerative change disc and facets L4-L5 and L5-S1. 2. Mild degenerative disc space narrowing otherwise. 3. No pars defects or fracture. 4. No abnormal motion on flexion-extension. 5. Symmetric moderate degenerative change at the SI joints. [employer] Phone: Radiology Study observation (narrative) [employer] Phone: XR LUMBAR SPINE (MIN 6 VIEWS )Ordered By: Jairo Mcdonald on 06-10-2022 [employer] Phone: MRI LUMBAR SPINE WO CONTRAST on 05-18-2022 1. Moderate degenerative disc disease and facet arthropathy at L5-S1. Disc bulge and ligamentum flavum thickening result in severe spinal stenosis. There is moderate bilateral foraminal narrowing at this level. 2. Normal alignment. No acute compression fractures. [facility] MRI LUMBAR SPINE WITHOUT CONTRAST, 05/18/2022 HISTORY: Low back pain. Radiculopathy. Leg weakness. COMPARISON: None. TECHNIQUE: Sagittal T1, T2, STIR, axial T1 and T2 images obtained. FINDINGS: Normal alignment. No subluxation. Signal in the bone marrow spaces normal. No bone marrow edema. No acute compression fracture. No spondylolysis. L5-S1, moderate degenerative disc disease. There is diffuse disc bulge. Moderate facet arthropathy. Severe central spinal canal stenosis as a result of disc bulge and ligamentum flavum thickening. Moderate bilateral foraminal narrowing. L4-L5, mild degenerative disc disease. Mild disc bulge. Mild facet arthropathy. There is mild central canal stenosis. Mild bilateral foraminal narrowing. L3-L4, mild degenerative disc disease. No spinal stenosis. Mild facet arthropathy. No foraminal narrowing. L2-L3, no spinal stenosis. No foraminal narrowing. L1-L2, no spinal stenosis. No foraminal narrowing. No abnormal signal in the conus medullaris. No paraspinal mass. [facility] Hao Toth MD - 05/18/2022 MRI LUMBAR SPINE WITHOUT CONTRAST, 05/18/2022 HISTORY: Low back pain. Radiculopathy. Leg weakness. COMPARISON: None. TECHNIQUE: Sagittal T1, T2, STIR, axial T1 and T2 images obtained. FINDINGS: Normal alignment. No subluxation. Signal in the bone marrow spaces normal. No bone marrow edema. No acute compression fracture. No spondylolysis. L5-S1, moderate degenerative disc disease. There is diffuse disc bulge. Moderate facet arthropathy. Severe central spinal canal stenosis as a result of disc bulge and ligamentum flavum thickening. Moderate bilateral foraminal narrowing. L4-L5, mild degenerative disc disease. Mild disc bulge. Mild facet arthropathy. There is mild central canal stenosis. Mild bilateral foraminal narrowing. L3-L4, mild degenerative disc disease. No spinal stenosis. Mild facet arthropathy. No foraminal narrowing. L2-L3, no spinal stenosis. No foraminal narrowing. L1-L2, no spinal stenosis. No foraminal narrowing. No abnormal signal in the conus medullaris. No paraspinal mass. IMPRESSION: 1. Moderate degenerative disc disease and facet arthropathy at L5-S1. Disc bulge and ligamentum flavum thickening result in severe spinal stenosis. There is moderate bilateral foraminal narrowing at this level. 2. Normal alignment. No acute compression fractures. [employer] Phone: Radiology Study observation (narrative) [employer] Phone: MRI LUMBAR SPINE WO CONTRAST Ordered By: Hao Toth on 05-18-2022 [employer] Phone: Basic Metabolic Panelon 10-2 Anion gap [Moles/Vol] 8 mmol/L Low 9 - 17 mmol/L [facility] Calcium [Mass/Vol] 8.9 mg/dL 8.6 - 10. 4 mg/dL [facility] Chloride [Moles/Vol] 100 mmol/L 98 - 10 7 mmol/L [facility] CO2 [Moles/Vol] 27 mmol/L 20 - 31 mmol/L [facility] Creatinine [Mass/Vol] 0.56 mg/dL 0.50 - 0.90 mg/dL [facility] GFR/1.73 sq M.predicted MDRD (S/P/Bld) [Vol rate/Area] - PINF [facility] Comment on above: Effective Mar 02, 2022 These results are not intended for use in patients <18 years of age. eGFR results are calculated without a race factor using the 2020 CKD-EPI equation. Careful clinical correlation is recommended, particularly when comparing to results calculated using previous equations. The CKD-EPI equation is less accurate in patients with extremes of muscle mass, extra-renal metabolism of creatine, excessive creatine ingestion, or following therapy that affects renal tubular secretion. Glucose [Mass/Vol] 119 mg/dL High 70 - 99 mg/dL [facility] Interpretation and review of laboratory results Abnormal [facility] Potassium [Moles/Vol] 4.3 mmol/L 3.7 - 5.3 mmol/L [facility] Sodium [Moles/Vol] 135 mmol/L 135 - 144 mmol/L [facility] Urea nitrogen (BldV) [Mass/Vol] 10 mg/dL 6 - 20 mg/dL [facility] Urea nitrogen/Creatinine (Bld) [Mass ratio] 18 9 - 20 [facility] CBCon 03-26-2022 Hematocrit (Bld) [Volume fraction] 38.3 % 36.3 - 47.1 % [facility] Hemoglobin (Bld) [Mass/Vol] 11.8 g/dL Low 11.9 - 15.1 g/dL [facility] Interpretation and review of laboratory results Abnormal [facility] MCH (RBC) [Entitic mass] 26.2 pg 25.2 - 33.5 pg [facility] MCHC (RBC) [Mass/Vol] 30.8 g/dL 28.4 - 34.8 g/dL [facility] MCV (RBC) [Entitic vol] 84.9 fL 82.6 - 102.9 fL [facility] NRBC Automated 0.0 0.0 per 100 WBC [facility] Platelet distribution width (Bld) [Ratio] 14.9 % High 11.8 - 14.4 % [facility] Platelet mean volume (Bld) [Entitic vol] 9.5 fL 8.1 - 13.5 fL [facility] Platelets (Bld) [#/Vol] 267 10*3/uL [facility] RBC (Bld) [#/Vol] 4.51 10*6/uL 3.95 - 5.1 1 m/uL [facility] WBC (Bld) [#/Vol] 11.1 10*3/uL [facility] Antinuclear Antibodieson 01-28-2022 Antinuclear Abs, IFA Negative Normal . [facility] Comment on above: Result Comment: Nega tive <1:80 Borderline 1:80 Positive >1:80 ICAP nomenclature: AC-0 For more information about Hep-2 cell patterns use ANApatterns.org, the official website for the International Consensus on Antinuclear Antibody ([place]UG[place]) Patterns (ICAP). Performed at: [facility] [address] [id number] Ornamental Metal Worker: Brandon Duarte PhD, Phone: [phone] PERFORMED BY: [place] [address] PATHOLOGIST COMIC BOOK DESIGNER RADHA SHERIDAN M.D. Performed By: #### A NA #### [facility] , #### CK #### [address] Creatine Kinaseon 01-28-2022 CK [Catalytic activity/Vol] 56 U/L Normal [facility] Comment on above: Result Comment: PERF ORMED BY: [place] [address] PATHOLOGIST COMIC BOOK DESIGNER RADHA SHERIDAN M.D. Performed By: #### A NA #### [facility] , #### CK #### [address] Creatine kinase [Enzymatic a ctivity/volume] in Serum or PlasmaOrdered By: Ministerio Martínez on 01-28-2022 CK [Catalytic activity/Vol] 56 U/L [facility] XR hand BI 2Von 01-28-2022 XR hand BI 2V [facility] Main [place] [address] [place] [address] XRay Report Signed Patient: Sarah Harris MR#: [id number] : 1975 Acct:[id number] Age/Sex: 46 / F ADM Date: 01/28/22 Loc: ICXD Room: Type: [facility] Attending Dr: Ministerio Martínez MD Copies to: Ministerio Martínez MD Ordering Provider: Ministerio Martínez MD Date of Service: 01/28/22 XR/XR hand BI 2V: pain XR hand BI 2V 01/28/2022 11:20 AM SIGNS AND SYMPTOMS: Numbness in bilateral hands PROTOCOL: Frontal and lateral radiographs of the bilateral hands COMPARISON: None FINDINGS: The joint spaces are grossly preserved. There is no evidence of fracture or dislocation. No significant soft tissue swelling. XR/XR hand BI 2V IMPRESSION: No acute bony injury. No significant degenerative change. Impression dictated by: Omero Lloyd M.D.01/28/2022 2:52 PM Dictation Location: [place] [address] Transcribed By: [facility] 01/28/22 145 Dictated By: Omero Lloyd II, MD 01/28/221449 Signed By: 01/28/221451 [facility] BUN & Creatinineon Creatinine [Mass/Vol] 0.55 mg/dL 0.5 - 0.9 mg/dL [facility] GFR >60 60 - PI NF mL/min [facility] GFR Non- >60 60 - PINF mL/min [facility] Urea nitrogen (BldV) [Mass/Vol] 8 mg/dL 6 - 20 mg/dL [facility] Laboratory - Chemistry and C hemistry - challengeon 01-07-2022 GFR/1.73 sq M.predicted MDRD (S/P/Bld) [Vol rate/Area] [facility] Comment on above: Average GFR for 40-4 9 years old: 99 mL/min/1.73sq m Chronic Kidney Disease: <60 mL/min/1.73sq m Kidney failure: <15 mL/min/1.73sq m eGFR calculated using average adult body mass. Additional eGFR calculator available at: http://www.[employer]/multiple_crcl_2011.htm Stage 1: Some kidney damage normal GFR Stage 2: Mild kidney damage GFR 60-89 Stage 3: Moderate kidney damage GFR 30-59 Stage 4: Severe kidney damage GFR 15-29 Stage 5: Severe kidney damage GFR <15 ESRD - chronic treatment by dialysis or transplant Glucose, Whole Bloodon 12-10 Glucose [Mass/Vol] 125 mg/dL High 74 - 100 mg/dL [facility] Interpretation and review of laboratory results Abnormal [facility] [employer] Culture, Urineon 12-05-2021 Bacteria identified Cx Nom (U) NO SIGNIFICANT GROWTH [employer] Specimen Description .CLEAN CATCH URINE [facility] m2p-labs [facility] EKG 12 LeadOrdered By: Lito Knox on 12-05-2021 Atrial Rate 88 BPM [facility] Work Phone: P Allen 52 degrees [facility] Work Phone: P-R Interval 170 ms [facility] Work Phone: Q-T Interval 372 ms [facility] Work Phone: QRS Duration 76 ms [facility] Work Phone: QTc Calculation (Bazett) 450 ms [facility] Work Phone: R Allen 28 degrees [facility] Work Phone: T Allen 15 degrees [facility] Work Phone: Ventricular Rate 88 BPM [employer] Work Phone: [facility] Work Phone: EKG 12 Leadon 12-05-2021 Normal sinus rhythm Normal ECG No previous ECGs available Confirmed by CLEMENCIA KNOX ([id number]) on 12/05/2021 12:01:49 PM [facility] Clemencia Knox MD - 12/05/2021 Normal sinus rhythm Normal ECG No previous ECGs available Confirmed by CLEMENCIA KNOX ([id number]) on 12/05/2021 12:01:49 PM [facility] Work Phone: CBC with Auto Differentialon 12-04-2021 Absolute Eos # 0.59 High [employer] Absolute Immature Granulocyte 0.05 [facility] Absolute Lymph # 2.41 [facility] Absolute [place] # 0.76 [facility] Basophils (Bld) [#/Vol] 0.09 10*3/uL [facility] Basophils/100 WBC (Bld) 1 % 0 - 2 % [facility] Eosinophils/100 WBC (Bld) 5 % High 1 - 4 % [facility] Hematocrit (Bld) [Volume fraction] 41.1 % 36.3 - 47.1 % [facility] Hemoglobin (Bld) [Mass/Vol] 12.2 g/dL 11.9 - 15.1 g/dL [facility] Immature granulocytes/100 WBC (Bld) 0 % 0 [facility] Interpretation and review of laboratory results Abnormal [facility] Lymphocytes/100 WBC (Bld) 20 % Low 24 - 43 % [facility] MCH (RBC) [Entitic mass] 24.7 pg Low 25.2 - 33.5 pg [facility] MCHC (RBC) [Mass/Vol] 29.7 g/dL 28.4 - 34.8 g/dL [facility] MCV (RBC) [Entitic vol] 83.2 fL 82.6 - 102.9 fL [facility] Monocytes/100 WBC (Bld) 6 % 3 - 12 % [facility] NRBC Automated 0.0 0.0 per 100 WBC [facility] Platelet distribution width (Bld) [Ratio] 16.2 % High 11.8 - 14.4 % [facility] Platelet mean volume (Bld) [Entitic vol] 9.7 fL 8.1 - 13.5 fL [facility] Platelets (Bld) [#/Vol] 329 10*3/uL [facility] RBC (Bld) [#/Vol] 4.94 10*6/uL 3.95 - 5.1 1 m/uL [facility] Segmented neutrophils/100 WBC (Bld) 68 % High 36 - 65 % [facility] Segs Absolute 7.91 [facility] WBC (Bld) [#/Vol] 11.8 10*3/uL High [facility] HCG Qualitative, Serumon hCG Qual Negative NEGATIVE [facility] Comment on above: Specimens with hCG l evels near the threshold of the test (25 mIU/mL) may give a negative or indeterminate result. In such cases, another test should be performed with a new specimen in 48-72 hours. If early is suspected clinically in this setting, correlation with quantitative serum b-hCG level is suggested. [employer] has confirmed the use of plasma for this test. This has not been cleared or approved by the U.S. Food and Drug Administration. The FDA has determined that such clearance is not necessary. [facility] CBC with Auto Differentialon 09-18-2021 Absolute Eos # 0.60 [facility] th Absolute Lymph # 2.10 [facility] alth Absolute [place] # 0.50 [facility] Basophils (Bld) [#/Vol] 0.10 10*3/uL [facility] Basophils/100 WBC (Bld) 1 % 0 - 2 % [facility] [employer] Differential Type YES [facility] ealth Eosinophils/100 WBC (Bld) 6 % High 0 - 5 % [facility] Hematocrit (Bld) [Volume fraction] 36.8 % 36 - 46 % [facility] Hemoglobin.gastrointes tinal spec 1 Ql (Stl) 11.7 g/dL Low 12.0 - 16.0 g/dL [facility] Interpretation and review of laboratory results Abnormal [facility] Lymphocytes/100 WBC (Bld) 18 % 15 - 40 % [facility] MCH (RBC) [Entitic mass] 24.5 pg Low 26 - 34 pg [facility] MCHC (RBC) [Mass/Vol] 31.8 g/dL 31 - 37 g/dL [facility] MCV (RBC) [Entitic vol] 76.9 fL Low 80 - 100 fL [facility] Monocytes/100 WBC (Bld) 4 % 4 - 8 % [facility] [employer] Platelet distribution width (Bld) [Ratio] 16.8 % High 12.1 - 15.2 % [facility] Platelets (Bld) [#/Vol] 348 10*3/uL [facility] [employer] RBC (Bld) [#/Vol] 4.78 10*6/uL 4.0 - 5.2 m/uL [facility] Segmented neutrophils/100 WBC (Bld) 71 % 47 - 75 % [facility] Segs Absolute 8.20 High [facility] Healt [facility] WBC (Bld) [#/Vol] 11.5 10*3/uL High [facility] Comprehensive Metabolic Pane princess 09-18-2021 Albumin [Mass/Vol] 3.9 g/dL 3.5 - 5.2 g/dL [facility] ALP (Bld) [Catalytic activity/Vol] 95 U/L 35 - 104 U/L [facility] ALT [Catalytic activity/Vol] 12 U/L 5 - 33 U/L [facility] Anion gap [Moles/Vol] 13 mmol/L 9 - 17 mmol/L [facility] AST [Catalytic activity/Vol] 14 U/L <32 [facility] Bilirubin [Mass/Vol] 0.23 mg/dL Low 0.30 - 1.20 mg/dL [facility] Calcium [Mass/Vol] 9.3 mg/dL 8.6 - 10. 4 mg/dL [facility] Chloride [Moles/Vol] 99 mmol/L 98 - 10 7 mmol/L [facility] CO2 [Moles/Vol] 24 mmol/L 20 - 31 mmol/L [facility] Creatinine [Mass/Vol] 0.64 mg/dL 0.50 - 0.90 mg/dL [facility] Free PSA/Total PSA [Mass fraction] 7.4 g/dL 6.4 - 8.3 g/dL [facility] GFR >60 >60 mL/min [facility] GFR Non- >60 >60 mL/min [facility] GFR/1.73 sq M.predicted MDRD (S/P/Bld) [Vol rate/Area] [facility] Comment on above: Average GFR for 40-4 9 years old: 99 mL/min/1.73sq m Chronic Kidney Disease: <60 mL/min/1.73sq m Kidney failure: <15 mL/min/1.73sq m eGFR calculated using average adult body mass. Additional eGFR calculator available at: http://www.[employer]/multiple_crcl_2012.htm Glucose [Mass/Vol] 130 mg/dL High 70 - 99 mg/dL [facility] Interpretation and review of laboratory results Abnormal [facility] Potassium [Moles/Vol] 4.1 mmol/L 3.7 - 5.3 mmol/L [facility] Sodium [Moles/Vol] 136 mmol/L 135 - 144 mmol/L [facility] Urea nitrogen (BldV) [Mass/Vol] 8 mg/dL 6 - 20 mg/dL [facility] Urea nitrogen/Creatinine (Bld) [Mass ratio] 13 [facility] Hepatitis C Antibodyon 09-18 Hepatitis C Ab Non-Reactive NONREACTIVE [facility] Comment on above: The hepatitis C procedure used in our laboratory is a Chemiluminescent test specific for three recombinant HCV antigens. A negative anti-HCV result indicates that the antibodies to hepatitis C virus are not present at this time. Individuals with reactive anti-HCV should be considered infected and infectious until proven otherwise. Confirmation of all equivocal or reactive results is recommended by ordering HCV RNA by PCR. [facility] Ironon 09-18-2021 Interpretation and review of laboratory results Abnormal [facility] Iron [Mass/Vol] 25 ug/dL Low 37 - 145 ug/dL [facility] Lipid Panelon 09-18-2021 Cholesterol [Mass/Vol] 167 mg/dL <200 [facility] Comment on above: Cholesterol Guidelines: <200 Desirable 200-240 Borderline >240 Undesirable Cholesterol in HDL [Mass/Vol] 36 mg/dL Low >40 [facility] Comment on above: HDL Guidelines: <40 Undesirable 40-59 Borderline >59 Desirable Cholesterol in LDL [Mass/Vol] 100 mg/dL 0 - 130 mg/dL [facility] Comment on above: LDL Guidelines: <100 Desirable 100-129 Near to/above Desirable 130-159 Borderline >159 Undesirable Direct (measured) LDL and calculated LDL are not interchangeable tests. Cholesterol.total/Chol esterol in HDL [Mass ratio] 4.6 {ratio} <5 [facility] Interpretation and review of laboratory results Abnormal [facility] Triglyceride [Mass/Vol] 157 mg/dL High <150 [facility] Comment on above: Triglyceride Guidelines: <150 Desirable 150-199 Borderline 200-499 High >499 Very high Based on AHA Guidelines for fasting triglyceride, February 2012. [facility] Microalbumin, Uron Albumin/Creatinine DL <= 20 mg/L (24H U) [Mass ratio] <12 <21 mg/L [facility] Albumin/Creatinine DL <= 20 mg/L (U) [Ratio] Can not be calculated <25 mcg/mg creat [facility] Creatinine [Mass/Vol] 261.8 mg/dL High 28.0 - 217.0 mg/dL [facility] Interpretation and review of laboratory results Abnormal [facility] Patient Fasting?on 2 Patient Fasting? NO [facility] Coding Summary.on 05-20-2021 Coding Summary. CD:[id number] G h0bWw+PGhlYWQ+FW2ATYR iH33kbJUzqZ9PY8jHJT5Q WNAJGYVXXD2CIP3noRE1E DewF0DymdLq BbmrlVRmNA89AKx2VMW7p YiiVJckmF2cyTUbJ5k9Lh QzXJ29mU48NIekBXUrYmR 3LjZpbjsgbWFy E8ylXkFmzAYfFsi+PHRhY mxlIHdpZHRoPScxMDAlJy BndUwjEK4cWr5bMCKbYSP vbGxhcHNlOiBj s5gnAHJwMRrfYA5ptQbxT 4QtnUQ8MCSzq1i0Kj09qP I+FVYfRTF7xRpvCWwse88 5OzDnl7nfUMU2 dYKcKJmsLXI4N13jf6R7H DVjVCAcCAK6aGD9iP1qhS ljpelsX6LntIMdLoZ0WVK 1yEUgdE7kkGna xbetsQ9qSzq+X74WZH4TI MRFVR1FTjd4T7DaLkmgrV I+WK31DNLiZT72fYGohYI jz9hzyWl9IoCo CVAtDVE7nGkiXCmfq9WmK EWeS77ksSUsg3W9ULWmcO cguUJkAcEojHF0nA9qLDp wjholj5vnmrdx Qbjhq5jmnh12hK18G44mU KoiBKDjMHP7RJZoGQWsmO ldcj0kwC6rRm3+ABybu8p vk2hjiFt9TkPm NLMpbrKdyAjnSOZ9w5NgY g06C1NeqBdwt5FnHtt9rm 52mJCag8B4pUZ5XFrbMYK wxM7bGQbaWvH4 WLBmHrTokL61bQUlLSsiU x2sjDidjOoxXF6eBQIasn hiOCPncL6kDGWzmRJzfXp sNM1yXJBfnlxi h262KmYxBDX3JYFycPDdR 2NzxX2aHlGxRMAkAPKlF6 WmlYCkXGzoX934KJhbCdL 4OJNuqxXxG3Rr JQFxuSwfAjO6q9V4Di8Rl 2GyrenfBNT5WZrrUISgZz UaCfRaRrC4V0YjQey6TBP qkKbnFG6kT8Ei IKWsvqhxenyjfJG9MQLiP RPngH63yHSzQThqMa9yd6 J5y129FBPzXDCuoF68La8 udDogMTBwdCBU kF2onzfzj8jpowgnOqFgR BWqRRs1XEe0PHNmmKutDm PbDKR3DkG9NAM4oBHdqX2 vaWyuaigjeT7q Oyc+A52pjH3uHOS1OKW7t egzFDXtjpSqKO49NP72C1 RyPjwvdGFibGU+PGRpdiB kkObvXD9sMwXl v3iwq8LiCBmuV2UgEYDxP FdxTcw6FOMaAZZ3qTC2zQ 9iMPKxSYenl9O6fWY0K1W xuiHbrw6go5xr NNGgKYtbP12euWRkm3F9O FPwkLI1KXXbvCfqVzMwfT 93Oyc+QBTzrUvuv9UvUfh bj4lnh6djjQz7 RzQcZVBmxeDypVhuLGU7s 4GuVs54E61nMWhbNYSkTS CjXUZpNTQcfUhcgv4vpG7 wIi8+PGNvbCB3 hLL2hC5bBAUbSgN4TZkiW 590DuSjtCMjVjmub2zyf5 jduTj7SuFoLLMyfeOinLr cHGP3m3EnGs97 Z39pXVxyFQKsTEJwULEpJ NLaeXzxlz4awI0zAx0+PC 4xy9isss48xE26mKR+PHR iWTA2qOjqLZrz NDExyN6kKMquGvX7JSZbD gQphO81pEGyRNfvYw7rrM gkkLloKS5eUNHfmvion64 0FjVwv0pfOQNr zQSxKDaeXZN2V23wr6Y5M XWdJMAfWIT0hTH0aR3akH lnbjogbGVmdDsgdmVydGl cAEzaAJsjM183 IHRvcDsnPlBhdGllbnQgT rHaXDn6E3SkWyw0GGUoiL ftPS7nfUGlGRlhWj7aaAf xuDefDT9nBMLp lyqkn551IdMay1ekPHWrr GGnOTwfPYP7B72jg9I8DN IvNVZxEDT5eZF9fV4nxSx nbjogbGVmdDsg gzOuiTodYAgaQIqtM458U HRvcDsnPkJpcnRoIERhdG M3SH37WR43dEHck6U3cTL 2N2BiGQBnptjb cmzikCO2YPTjIQOacG29X q3chEpePg0ySVThXDB6BI FtqNNhJ4SfkF8qBiChSYC jUNDtL0UjfXJe FLmaR338NTcyKvJ4FACvi rSaF4YoTUKlzOyoThV8n7 N8Qo6HM4U7OJ36FP52sEF xb2E6jEH9S4Yv JBYttbosekkajET2ZUAuO JRspQ54Ew0piFfvZu3bDA QyZDS4ZAJnfOTdM7DlxE6 yOiAjMDAwMDAw C6QhaAOoCZqtK192OOtkE tD0LCQkkcPxT6YdTCMwpS ucHiT9u0U6Xh1JRSz3UH7 8GL99pQHgg1L6 eVX9G0XuSDBboqmojboit FK1NQLuDQTlsM38Cj9ctY mlCq5kYGElJBL0UQTyuWT yV8RutH3eDeJo HSHwHEIbX8JgqHIfZBjsU 359KHwgVxW5OIMatkMzL8 CpJALryQgaUwD1c2V4Ll5 JKVZtYZ63XTU8 sDR5WR29EA77C2YmVywfc GFibGU+PHRhYmxlIHdpZH RoPScxMDAlJyBzdHlsZT0 dMb9oPALeTANi yMituYCmYoQdx1cqNIGaZ MhcOV9auOeeT3EebAI3RJ Yky6u9Ka33K50wX7UjoEU +BIMepAG8qHJ3 zR7qUwYyZgS1QAkiM396V vYxwNClEcxbi2eqt5rbnK m3LrG1RCJdebMipSjiSQD 5g8VfRp36T70e IHdpZHRoPSIxNSUiIHZhb Cagec2ozU2eRb1+PGNvbC P0oQD0lA1fKxCrVuY1VQt qO627LoKgcQQx Fkwsg4dzz4ubsEp6AiVbL EPagcVxpPnxPBM5k7JfMj 74G7AzgTomv2YpHzi1uv5 5lQJgm9C6xJB1 M9IhUXNiuumvvRCxvZyeR S0wIBBhkrnxGRMobQ5xRX GrH2h5EnNvOqY1RIsgK1J juyH9NNAceLHx SYybWLL7L22gn8X3TMLrF QVkCYR7mHI0dH0vzBjeak ogbGVmdDsgdmVydGljYWw gOGmdW855SHYj bMgrODVblF6rSJWcpAKhh DgyYE1xFYGqzdrlEuyWPR 5HLCBBTkdFTEEgTTwvdGQ +GKPwISX0iKci AVkaJLAwoE9zBBGmB8a0V lIkKoV7DPfxQ1GkAHDqif ysFb92cG2pGrShRdV0APv eL8YctiC8OGGc tHGzWEcsPWB5I38xm6N0Q DRpKFIkPTA0bNI1bQ3jmL lnbjogbGVmdDsgdmVydGl sIGemBSsmA366 HVLaxXiwIaCsNyT4TrV3Z oR0I3VfZiz2WVFyqVwyTW 3usJTmXTkvHq6asVhyxPi sLQ4wRFMjcyfo GDLmtZ9iVVGqiDQgbCjyV X5pASNkcjkzy329PbGuQZ H1HUWkqKSeZ7GnyI4wQmJ lZLSfXDGxX4Ya cWZxPEepQ831THhbStA4I JGdrrWbW3PcJBRegZvbXm F6h7G2Er43YBXRSDJsdjp vdGQ+PHRkIHN0 fXyuLWiqFEQczP8gALZaZ 9q2NoYeLrU5LYzdY3KhCY UgnewjDs89lT0xBxRhLkE 2YCwcR7UspzE4 HTGagIZrSJbpPFQ9G75pd 2I7MPUnDHPaLAQ0wSA0eR 1hbGlnbjogbGVmdDsgdmV ydGljYWwtYWxp C220YPExpBewVkWlzCIyH TwvdGQ+EATdCFT1jAlqLG iwLSCtjU0eCWTzP6q1SfJ rVbL2OTznA6Qg EMIfbakoMp40nD4iQbLbN dH6WPkqS2EfxbI6VGCgcH EgTKjvJVQ8M38dk5B2FRE yVIVmOAR6nLV1 fU4ohQgbwjlnvLJzoJbok bGnsFegCWboWGpcU571UR IxlQryWh96pZUlfIsgkoF 0T1QbApwkjQV+ RG84BNVgME01rWMrqCAea 2ojfOy2KqWdEKXkYGT1xQ vjYFrrc4FwEXBeU97crOK ih3K5KVTvwTxz bOOlXoUbdRT8aF9bHKnkj zawb6tgcgwxXfiuo0wtpa 89aK99T46nDWezAZFbWUF zMCUiIHZhbGln zn4qnB9nVu2+LXOfpXI6r HF3xV9yObNnBtD2UZuoF5 14FhPxuSAwDippw8xtz9q reBm8SxFnFZBl svClwXqgQZE3o6RqDg91R 29sIHdpZHRoPSIyMCUiIH MfoDtjhr3roO3wNo3+PC9 wq2tlqh69jY38 dHI+VPBmSSS5tNyxUBetN OWydT3dQKejSdA3OKLqEd YotR38sIVnXKenUi5bmPn txOibZA8aEGMo xuukj644BvTvz4vpYQZyx KLtIHapNOI5H17bz2O2MO CcBKVkXKO9tNL2oY8kxMy nbjogbGVmdDsg neXxaMywWJkpJHlwX694I TMamJbwKgZdpRPyQ7bfoc MVWL1fJxzstOO+PHRkIHN 0eWxlPSdwYWRk nC2xWOZyZ6a6YkZmFvY2R AaoX3VzyvA2MQEluMGfWS BiqHMFjG7wsedsd8vgduw gIzAwMDAwMDt0 IEi9GFRskOdsFaVzPUO8D xE4WUF1xCHaqD1ebQorma qycO9zTfq+RklOOjwvdGQ +PHPqRZD3nTab TVjsRRDwyT8qCKPcU5e7L gOgToB3SSgcY1KsscY3ZV AjbXAmYWFtzWLOdX1ukxh gu6fmxxivImRt VTNfPFx8HGg8NKTizLzwL qUsPQI2CqU2RUB2cGQbaF 7nkOdhbtbuvN2dWmb+TVJ OOjwvdGQ+PHRk CHN9gHsaOJgwSZZrxR1bS ERtL2r1NtWuOzQ4DStuD7 CxhmM2IBRnbKBuXUPjrRU ZoM6xuwdme4xs sicxRdDoKXMlUQy5YPa0U JEzoYuqZfEtIMH1OsK0YZ Q1qTWfkV7cdUpirbsaeT7 wOyc+JBY4QOH2 LN59VA96S2DrGadeaMKoz +PHRhYmxlIHdpZHRoPS dpWUJgYaWzgKqoCE3uYx3 yZGVyLWNvbGxh cHNl (more content not included)... Normal [place] MRI Shoulder w/o Contrast [place] 05-05-2021 MRI Shoulder w/o Contrast Right Exam Date/Time: 05/02/2021 17:55 EST Reason for Exam: M75.41 M M54.10 Report IMPRESSION: MILD SUPRASPINATUS TENDINOSIS. EXAM: MRI Shoulder w/o Contrast Right HISTORY: Shoulder pain TECHNIQUE: Multiplanar multisequence MRI of the shoulder was performed without contrast. COMPARISON: Shoulder radiographs 08/29/2010 FINDINGS: Mild degenerative changes of the acromioclavicular joint without undersurface osteophyte formation. The acromion is slightly curved. Coracoclavicular ligament intact. No subacromial/subdeltoi d bursal fluid or edema. The supraspinatus, infraspinatus, subscapularis, and teres minor tendons are intact. No atrophy or fatty infiltration of the rotator cuff musculature. The intra-articular and extra-articular long head biceps tendon is intact. The biceps tendon resides within the bicipital groove. Anterior superior through posterior superior labral degeneration. No definitive labral tear identified. No well-defined or measurable cartilage defect identified. No glenohumeral joint effusion. FINAL REPORT Dictated: 05/05/2021 1:58 pm Ministerio Fabian DO Signed (Electronic Signature): 05/05/2021 1:58 pm Signed by: Ministerio Fabian DO Transcribed by: HAMLET Technologist: SALINA Technical Comments None [facility] Consent for Treatmenton 12-0 Consent for Treatment [id number]#1 .00CD:127 [facility] RAD - MRI Screening Formon 1 07-03-2020 RAD - MRI Screening Form [id number]#1 .00CD:127 [facility] Physician Orderon 04-30-2021 Physician Order [id number]# 1.00CD:127 [facility] Physician Orderon 04-29-2021 Physician Order [id number]# 1.00CD:127 [facility] Pre-Certification Formon Pre-Certification Form [id number]#1 .00CD:127 [facility] CBC Auto DifferentialOrdered By: Zayra Sloan on 04-02-2021 [employer] # 0.50 [employer] [facility] Work Phone: Absolute Immature Granulocyte NOT REPORTED [employer] Work Phone: Absolute Lymph # 1.90 [employer] [facility] Work Phone: Absolute [place] # 0.70 [facility] Work Phone: Basophils (Bld) [#/Vol] 0.00 10*3/uL [employer] Work Phone: Basophils/100 WBC (Bld) 0 % 0 - 2 % [employer] Work Phone: Differential Type YES [facility] [employer] Work Phone: Eosinophils/100 WBC (Bld) 4 % 0 - 5 % [employer] Work Phone: Hematocrit (Bld) [Volume fraction] 34.8 % Low 36 - 46 % [facility] Phone: Hemoglobin.gastrointes tinal spec 1 Ql (Stl) 10.9 g/dL Low 12.0 - 16.0 g/dL [facility] Phone: Immature Granulocytes NOT REPORTED 0 % [employer] Phone: Interpretation and review of laboratory results Abnormal [facility] Phone: Lymphocytes/100 WBC (Bld) 17 % 15 - 40 % [facility] Phone: MCH (RBC) [Entitic mass] 23.3 pg Low 26 - 34 pg [facility] Phone: MCHC (RBC) [Mass/Vol] 31.4 g/dL 31 - 37 g/dL [employer] Phone: MCV (RBC) [Entitic vol] 74.3 fL Low 80 - 100 fL [facility] Phone: Monocytes/100 WBC (Bld) 6 % 4 - 8 % [facility] Phone: NRBC Automated NOT REPORTED per 100 WBC [facility] Work Phone: Platelet distribution width (Bld) [Ratio] 18.5 % High 12.1 - 15.2 % [facility] Phone: Platelet Estimate NOT REPORTED [facility] Phone: Platelet mean volume (Bld) [Entitic vol] NOT REPORTED 6.0 - 12.0 fL [facility] Phone: Platelets (Bld) [#/Vol] 341 10*3/uL [facility] Phone: RBC (Bld) [#/Vol] 4.68 10*6/uL 4.0 - 5.2 m/uL [facility] Phone: RBC (Bld) [#/Vol] NOT REPORTED [facility] Phone: Segmented neutrophils/100 WBC (Bld) 73 % 47 - 75 % [facility] Phone: Segs Absolute 8.30 [employer] Work Phone: WBC (Bld) [#/Vol] 11.5 10*3/uL [facility] [employer] Work Phone: WBC (Bld) [#/Vol] NOT REPORTED [employer] Work Phone: [employer] Work Phone: Comprehensive Metabolic Pane lOrdered By: Zayra Sloan on 04-02-2021 Albumin [Mass/Vol] 3.9 g/dL 3.5 - 5.2 g/dL [facility] Phone: Albumin/Globulin Ratio NOT REPORTED [facility] Phone: ALP (Bld) [Catalytic activity/Vol] 87 U/L 35 - 104 U/L [facility] Phone: ALT [Catalytic activity/Vol] 14 U/L 5 - 33 U/L [facility] Phone: Anion gap [Moles/Vol] 12 mmol/L 9 - 17 mmol/L [facility] Phone: AST [Catalytic activity/Vol] 14 U/L <32 [facility] Phone: Bilirubin [Mass/Vol] 0.19 mg/dL Low 0.30 - 1.20 mg/dL [facility] Phone: Calcium [Mass/Vol] 9.2 mg/dL 8.6 - 10. 4 mg/dL [facility] Phone: Chloride [Moles/Vol] 101 mmol/L 98 - 10 7 mmol/L [facility] Phone: CO2 [Moles/Vol] 25 mmol/L 20 - 31 mmol/L [facility] Phone: Creatinine [Mass/Vol] 0.55 mg/dL 0.50 - 0.90 mg/dL [facility] Phone: Free PSA/Total PSA [Mass fraction] 7.3 g/dL 6.4 - 8.3 g/dL [facility] Phone: GFR >60 >60 mL/min [facility] Phone: GFR Non- >60 >60 mL/min [facility] Phone: GFR/1.73 sq M.predicted MDRD (S/P/Bld) [Vol rate/Area] [facility] Phone: Comment on above: Average GFR for 40-4 9 years old: 99 mL/min/1.73sq m Chronic Kidney Disease: <60 mL/min/1.73sq m Kidney failure: <15 mL/min/1.73sq m eGFR calculated using average adult body mass. Additional eGFR calculator available at: http://www.[employer]io/multiple_crcl_2012.htm GFR/1.73 sq M.predicted MDRD (S/P/Bld) [Vol rate/Area] NOT REPORTED [facility] Phone: Glucose [Mass/Vol] 97 mg/dL 70 - 99 mg/dL [employer] Phone: Interpretation and review of laboratory results Abnormal [facility] Phone: Potassium [Moles/Vol] 4.2 mmol/L 3.7 - 5.3 mmol/L [facility] Phone: Sodium [Moles/Vol] 138 mmol/L 135 - 144 mmol/L [facility] Phone: Urea nitrogen (BldV) [Mass/Vol] 10 mg/dL 6 - 20 mg/dL [facility] Phone: Urea nitrogen/Creatinine (Bld) [Mass ratio] 18 [facility] Phone: [facility] Phone: FerritinOrdered By: Zayra Solan on 04-02-2021 Ferritin 33 ug/L 13 - 150 ug/L [employer] Work Phone: Iron And TIBCOrdered By: Alesia Sloan on 04-02-2021 Interpretation and review of laboratory results Abnormal [employer] Work Phone: Iron [Mass/Vol] 20 ug/dL Low 37 - 145 ug/dL [employer] Work Phone: Iron Saturation 7 % Low 20 - 55 % [facility] Work Phone: TIBC 303 ug/dL 250 - 450 ug/dL [facility] Phone: UIBC 283 ug/dL 112 - 347 ug/dL [facility] Phone: No Panel InformationOrdered By: Zayra Sloan on 04-02-2021 [facility] Phone: VC CONSULT FOLLOWUPon 2020 VC CONSULT FOLLOWUP Patient: SARAH HARRIS Exam Date: 03/12/2021 : 1975 Gender:F Ordering : DR GLENN LOUISE M.D. Admission #: [id number] Family : Order #: [id number] CLICK HERE TO VIEW EXAM RADIOLOGY REPORT PROCEDURE: VEIN CENTER CONSULTATION FOLLOWUP VEIN CENTER - OFFICE VISIT FOLLOW UP COMPARISON: VC CONSULT FOLLOWUP, 02/26/2021. PROGRESS NOTES: The patient reports no significant pain or discomfort following intravenous laser ablation of the left anterior accessory saphenous vein. The patient has worn her compression stockings. The patient has followed our recommendations to walk 20-30 minutes once or twice per day since the procedure. Physical exam demonstrates no areas of erythema or warmth to suggest cellulitis or thrombophlebitis. No bruising. Thrombosed left anterior accessory saphenous vein can be palpated. Review of the ultrasound performed the same day demonstrates occlusive thrombus extending throughout the treated left anterior accessory saphenous vein with heat induced thrombus 3.5 cm from the saphenofemoral junction. Large branch saphenous varicose vein measuring 11 mm remains patent. The patient has bilateral incompetent branch saphenous varicose veins, however her insurance does not approve her for micro foam chemical ablation. IMPRESSION: 1. Successful ablation of the left anterior accessory saphenous vein 2. 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 Her incompetent varicose veins were not approved for treatment by her insurance company. Patient was encouraged to follow up us in 6 months to see if there has been a change in her insurance coverage. Nurse notes, history and physical were reviewed and confirmed, see attached forms. The nurse was present throughout the physical exam and consultation Dictated by: Glenn Louise MD on 03/12/2021 at 09:26 Approved by: Glenn Louise MD on 03/12/2021 at 09:28 Normal [facility] VC EXT VENOUS LT LIMITEDon 1 VC EXT VENOUS LT LIMITED Patient: SARAH HARRIS Exam Date: 03/12/2021 : 1975 Gender:F Ordering : DR GLENN LOUISE M.D. Admission #: [id number] Family : Order #: [id number] CLICK HERE TO VIEW EXAM RADIOLOGY REPORT PROCEDURE: VEIN CENTER EXTREMITY VENOUS LEFT LIMITED COMPARISON: None. INDICATIONS: Phlebitis and thrombophelbitis of superficial veins of left lower extremity I80.02 TECHNIQUE: Lower extremity navarro scale and Duplex Doppler evaluation of the deep venous system from the inguinal ligament through the calf veins. FINDINGS: REGION: Left lower extremity. THROMBI: Negative for DVT. Occlusion of the left anterior accessory saphenous vein with heat induced thrombus visualized 3.5cm from SFJ to insertion , mid thigh COMPRESSIBILITY: Noncompressibility corresponding to thrombus FLOW: Absent flow corresponding to thrombus OTHER: Varicosity visualized proximal medial thigh measuring 11mm with 1.5s of reflux *Exam performed in accordance with AIUM practice guidelines- Peripheral venous ultrasound, August 24, 2009. CONCLUSION: Successful post ablation occlusion of the left anterior accessory saphenous vein Dictated by: Glenn Louise MD on 03/12/2021 at 09:25 Approved by: Glenn Louise MD on 03/12/2021 at 09:26 [facility] VC ENDOVENOUS ABL 1ST V LTon 03-06-2021 VC ENDOVENOUS ABL 1ST V LT Patient: SARAH HARRIS Exam Date: 03/06/2021 : 1975 Gender:F Ordering : DR GLENN LOUISE M.D. Admission #: [id number] Family : Order #: [id number] CLICK HERE TO VIEW EXAM RADIOLOGY REPORT PROCEDURE: VEIN CENTER ENDOVENOUS ABLATION FIRST VEIN LEFT ANTERIOR ACCESSORY SAPHENOUS VEIN COMPARISON: None. INDICATIONS: Pain co-occurrent and due to varicose veins of bilateral legs I83.813 OPERATIVE REPORT: The risks and benefits of the procedure had been previously discussed, and were rediscussed at length. Informed written consent was obtained by me and Elliot yost. Time out procedure was performed. The left lower extremity was prepared and draped in the usual sterile fashion to allow knee flexion in the sterile field. Duplex ultrasound probe was draped in a sterile cover, sterile transmission gel was used. Venous mapping was performed with the areas of dilation and large tributaries marked. The total length was 14 cm from the entry upper thigh to 3 cm below the saphenofemoral junction. The vein below this area was to tortuous for catheter advancement. The diameter of the anterior accessory saphenous vein ranged from 8-14 mm. A 30 gauge needle and 1% buffered lidocaine was used to anesthetize the entry site. A 4 mm incision was made with a scalpel and the saphenous vein was entered percutaneously under direct ultrasound guidance with a micropuncture set, a single stick was successful in gaining access. A micro-guide wire was inserted and the needle removed. A micro-set including a dilator was inserted over the microwire and the needle and dilator were removed. A 0.018 guide wire was inserted through the micro-set and threaded through the saphenous vein to the saphenofemoral junction. The dilator was removed and an introducer sheath was inserted over the wire until the end of the sheath entered the saphenofemoral junction. The dilator and wire were removed and the 600 micron fiber was introduced and placed and positioned so that it extended beyond the sheath and was 3 cm peripheral to the saphenofemoral femoral junction. Final position of the fiber was determined by ultrasound guidance and duplex imaging. Tumescent anesthetic was delivered by ultrasound guidance. 175 cc of fluid was delivered along the entire course of the saphenous vein. The solution consisted of 500 cc of normal saline with 20mL of 1% lidocaine and 10 mL of sodium bicarbonate. A final positioning check was made. The energy source was turned on by means of the foot pedal and the fiber and sheath were withdrawn. The total number of Joules delivered was 606. The laser was active for 76 seconds under continuous pulse, average laser use of 8 J. Laser start time 9:06 a.m. March 06, 2021 Laser stop time 9:12 a.m. March 06, 2021 A duplex ultrasound revealed compressibility and flow at the saphenofemoral junction immediately after the procedure. Hemostasis at the access site was achieved. The skin incision of the saphenous vein was closed with a 4 x 4. A compression stocking was applied. Postop instructions were given. A follow up appointment was recommended and scheduled. The patient tolerated the procedure well and was discharged in good condition. CONCLUSION: 1. Technically successful endovenous laser ablation of the left anterior accessory saphenous vein. Dictated by: Glenn Louise MD on 03/06/2021 at 09:13 Approved by: Glenn Louise MD on 03/06/2021 at 09:15 Normal [facility] VC CONSULT FOLLOWUPon 2020 VC CONSULT FOLLOWUP Patient: SARAH HARRIS Exam Date: 02/26/2021 : 1975 Gender:F Ordering : DR GLENN LOUISE M.D. Admission #: [id number] Family : Order #: [id number] CLICK HERE TO VIEW EXAM RADIOLOGY REPORT PROCEDURE: VEIN CENTER CONSULTATION FOLLOWUP VEIN CENTER - OFFICE VISIT FOLLOW UP COMPARISON: None. PROGRESS NOTES: The patient reports no significant pain following intravenous laser ablation of the right anterior accessory saphenous vein. The patient has worn her compression stockings. The patient has not required oral analgesics. The patient has difficulty exercising but has tried walk as much as possible. Physical exam demonstrates no areas of erythema, warmth or bruising Review of the ultrasound performed the same day demonstrates occlusive thrombus extending throughout the treated right anterior accessory saphenous vein with heat induced thrombus extending to the saphenofemoral junction but not into the femoral vein. The patient expressed a desire to proceed with treatment of incompetent left anterior accessory saphenous vein with intravenous laser ablation. Micro foam chemical ablation was discussed with the patient, there is a self pay option however the patient's insurance does not cover the procedure. IMPRESSION: 1. Successful ablation of the right anterior accessory saphenous vein with heat induced thrombus at the saphenofemoral junction 2. 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 325 milligram aspirin once per day 2. Follow-up in 1-2 weeks 3. Endovenous laser ablation left anterior accessory saphenous vein Nurse notes, history and physical were reviewed and confirmed, see attached forms. The nurse was present throughout the physical exam and consultation Dictated by: Glenn Louise MD on 02/26/2021 at 09:47 Approved by: Glenn Louise MD on 02/26/2021 at 09:51 Normal [facility] VC EXT VENOUS RT LIMITEDon 0 02-26-2021 VC EXT VENOUS RT LIMITED Patient: SARAH HARRIS. Exam Date: 02/26/2021 : 1975 Gender:F Ordering : DR GLENN LOUISE M.D. Admission #: [id number] Family : Order #: [id number] CLICK HERE TO VIEW EXAM RADIOLOGY REPORT PROCEDURE: VEIN CENTER EXTREMITY VENOUS RIGHT LIMITED COMPARISON: None. INDICATIONS: Phlebitis and thrombophlebitis of superficial veins of right lower extremity I80.01 TECHNIQUE: Lower extremity navarro scale and Duplex Doppler evaluation of the deep venous system from the inguinal ligament through the calf veins. FINDINGS: REGION: Right lower extremity. THROMBI: Negative for DVT. Right AASV is visualized with heat induced thrombus for approximately 8cm . The clot extends to but not into the saphenofemoral junction COMPRESSIBILITY: Noncompressibility corresponding to thrombus FLOW: Absent flow corresponding to thrombus. *Exam performed in accordance with AIUM practice guidelines- Peripheral venous ultrasound, August 24, 2009. CONCLUSION: Successful post ablation occlusion of the right anterior accessory saphenous vein with heat induced thrombus at the saphenofemoral junction Dictated by: Glenn Louise MD on 02/26/2021 at 09:34 Approved by: Glenn Louise MD on 02/26/2021 at 09:47 Normal [facility] VC ENDOVENOUS ABL 1ST V RTon 02-20-2021 VC ENDOVENOUS ABL 1ST V RT Patient: SARAH HARRIS. Exam Date: 02/20/2021 : 1975 Gender:F Ordering : DR GLENN LOUISE M.D. Admission #: [id number] Family : Order #: [id number] CLICK HERE TO VIEW EXAM RADIOLOGY REPORT PROCEDURE: VEIN CENTER ENDOVENOUS ABLATION FIRST VEIN RIGHT COMPARISON: None. INDICATIONS: Pain co-occurrent and due to varicose veins of bilateral legs I83.813 OPERATIVE REPORT: The risks and benefits of the procedure had been previously discussed, and were rediscussed at length. Informed written consent was obtained by and Kristyn yost. Time out procedure was performed. The right lower extremity was prepared and draped in the usual sterile fashion to allow knee flexion in the sterile field. Duplex ultrasound probe was draped in a sterile cover, sterile transmission gel was used. Venous mapping was performed with the areas of dilation and large tributaries marked. The total length was 6 cm from the entry 9 cm below the groin. The diameter of the anterior accessory saphenous vein ranged from 21 mm. A 30 gauge needle and 1% buffered lidocaine was used to anesthetize the entry site. A 4 mm incision was made with a scalpel and the saphenous vein was entered percutaneously under direct ultrasound guidance with a micropuncture set, a single stick was successful in gaining access. A micro-guide wire was inserted and the needle removed. A micro-set including a dilator was inserted over the microwire and the needle and dilator were removed. The laser wire was inserted through the micro-set catheter and advanced to lie just distal to the dilated, bulbous 21 mm diameter area. Final position of the fiber was determined by ultrasound guidance and duplex imaging. 1% lidocaine was administered along the entire course of the anterior accessory saphenous vein. A final positioning check was made. The energy source was turned on by means of the foot pedal and the fiber and sheath were withdrawn. The total number of spot welts was 8. Total Joules delivered was 493 (approximately 60 joules per weld site). The laser was active for a total of 64 seconds, average laser use of 8 J. A duplex ultrasound revealed compressibility and flow at the saphenofemoral junction immediately after the procedure. Hemostasis at the access site was achieved. The skin incision of the saphenous vein was closed with a 4 x 4. A compression stocking was applied. Postop instructions were given. A follow up appointment was recommended and scheduled. The patient tolerated the procedure well and was discharged in good condition. CONCLUSION: 1. Technically successful endovenous laser ablation of the right anterior accessory saphenous vein. Dictated by: Ana Elias M.D. on 02/20/2021 at 13:57 Approved by: Ana Elias M.D. on 02/20/2021 at 14:40 Normal [facility] VC COMP CONSULTATIONon 01-23 VC COMP CONSULTATION Patient: SARAH HARRIS Exam Date: 01/23/2021 : 1975 Gender:F Ordering : PERI KEY Admission #: [id number] Family : Order #: [id number] CLICK HERE TO VIEW EXAM RADIOLOGY REPORT PROCEDURE: VEIN CENTER CONSULTATION VEIN CENTER - OFFICE VISIT INITIAL COMPARISON: VEIN CENTER CONSULTATION, 11/12/2016. PROGRESS NOTES: [age] year old female who presents with a 5 year history of dilated veins, swelling, muscle cramping, with new onset lower extremity edema. The patient's right leg symptoms are worse than the left. There has been a progression of symptoms over the past 5 years. This increases with prolonged standing. The patient describes an improvement with rest and elevation. The patient denies any signs and symptoms to suggest arterial ischemia. The patient describes a family history varicose veins, diabetes, and hypertension. The patient has drinking and smoking history of no tobacco or alcohol use. Patient has a past medical history significant for large draining, nonhealing wound of the anterior distal left lower extremity which healed after prior vein therapy and working with wound clinic. The patient denies a history of deep venous thrombus or pulmonary embolus. See separate history and physical for medication list. Prior treatment for varicose veins approximately 6 years ago. No current use of compression stockings. After review of nurse notes, history and physical exam I discussed at length the pathophysiology of venous hypertension and possible treatments, therapies and strategies available. We discussed at length the importance of elevating the lower extremities above the level of the heart, increased physical activity and compression stocking use. Ultrasound venous reflux study performed today was discussed at length with the patient. The report demonstrates markedly dilated an incompetent anterior accessory saphenous veins bilaterally with numerous large dilated branch saphenous varicosities arising from the anterior accessory saphenous veins. Multiple dilated incompetent branch saphenous varicosities within the distal lower extremities despite competent small saphenous veins; these likely arise from the multiple markedly dilated bed placement coordinator veins.. PHYSICAL EXAM: The right leg demonstrates numerous large varicosities, several spider veins, no ulceration, moderate-marked edema, no skin discoloration. The left leg demonstrates numerous large varicosities, several spider veins, no current ulcerations; large scar from prior ulceration, trace amount of edema, no skin discoloration. Both thighs, legs and feet were symmetrically warm to the touch. Good posterior tibial and dorsalis pedis pulses were present bilaterally. IMPRESSION: 1. Marked bilateral venous insufficiency 2. Bilateral lower extremity varicose veins 3. Bilateral lower extremity subcutaneous edema 4. No flow significant arterial disease 5. CEAP: C3, EC, AP, Pr PLAN: 1. Continued use of compression stockings 2. Elevated legs and increased physical activity symptomatic relief 3. Endovenous laser therapy of the anterior accessory saphenous veins bilaterally. Laser therapy of bed placement coordinator veins bilaterally. Microfoam chemical ablation of large extensive bilateral branch saphenous varicosities. 4. History of prior endovenous laser ablation of great saphenous vein bilaterally. Nurse notes, history and physical were reviewed and confirmed, see attached forms. The nurse was present throughout the physical exam and consultation Dictated by: Ana Elias M.D. on 01/23/2021 at 15:38 Approved by: Ana Elias M.D. on 01/23/2021 at 15:45 Normal [facility] VC VENOUS REFLUX SOLOMON LMTon 0 01-23-2021 VC VENOUS REFLUX SOLOMON LMT Patient: SARAH HARRIS Exam Date: 01/23/2021 : 1975 Gender:F Ordering : PERI KEY Admission #: [id number] Family : DR GLENN LOUISE M.D. Order #: [id number] CLICK HERE TO VIEW EXAM RADIOLOGY REPORT PROCEDURE: VEIN CENTER ULTRASOUND VENOUS REFLUX BILATERAL LIMTED COMPARISON: VC VENOUS REFLUX SOLOMON LMT, 08/06/2016. INDICATIONS: Localized edema R60.0 TECHNIQUE: Duplex imaging of the lower extremity to assess the deep and superficial venous system for the presence of deep or superficial venous incompetence and to document the location and severity of disease. The study includes evaluation of the great saphenous vein (GSV), anterior accessory saphenous vein (AASV) and small saphenous vein (SSV). Patient scanned in reverse Trendelenburg and standing. FINDINGS: RIGHT LOWER EXTREMITY: Saphenofemoral Junction Reflux: Yes 11.3mm 1.5 sec GSV: Diam (mm) Reflux/ Time (sec) Proximal Thigh 5.0 Yes 0.6 Mid Thigh n/a No Distal Thigh n/a No Prox Calf n/a No Mid Calf n/a No Saphenopopliteal Junction Reflux: 4.6mm No SSV: Proximal Calf 3.5 No Mid Calf 5.0 No AASV: Proximal Thigh 21.1 Yes 1.4 Mid Thigh Distal Thigh Thrombi: No acute or chronic echogenic thrombus Compressibility: Normal Flow: Normal Preforator: Right mid calf bed placement coordinator 4.8mm with 1.4s of reflux and 5.6mm with 1.7s of reflux, Tech Note: Incompetent SFJ/AASV. AASV is visualized approximately 7cm from SFJ. with 1.2s of reflux. Multiple varicosities visualized mid medial calf 6.0mm with 1.1s of reflux,anterior proximal thigh off AASV 9.6mm with 2.2s of reflux, anterior mid thigh 8.8mm with 1.1s of reflux, lateral distal thigh 7.6mm with 0.9s of reflux LEFT LOWER EXTREMITY: Saphenofemoral Junction Reflux: Yes 15.5 mm 3.3 sec GSV: Diam (mm) Reflux/Time (sec) Proximal Thigh n/a No Mid Thigh n/a No Distal Thigh n/a No Prox Calf n/a No Mid Calf n/a No Saphenopopliteal Junction Relux: 3.8 mm No SSV: Proximal Calf 4.0 No Mid Calf 3.0 No AASV: Proximal Thigh 14.9 Yes 2.2s Mid Thigh Distal Thigh Thrombi: No acute or chronic echogenic thrombus visualized. Compressibility: Normal Flow: Normal Camera Technician: Left mid medial bed placement coordinator 6.0mm with 0.9s of reflux and proximal calf 5.6mm with 1.7s of reflux Tech Note: Incompetent SFJ/AASV. The left AASV is visualized approximately 8cm from SFJ. Left GSV was previously ablated. Multiple varicosities left distal calf 4.2mm with 1.8s of reflux, left proximal thigh 10.0mm with 1.9s of reflux, 7.4mm with 1.2s of reflux, mid thigh 4.5mm with 1.3s of reflux, lateral mid calf 5.2mm with 0.6s of reflux,distal lateral thigh 7.4mm with 1.4s of reflux CONCLUSION: 1. Markedly dilated anterior accessory saphenous vein bilaterally with marked reflux. 2. Extensive, markedly dilated branch saphenous varicosities bilaterally. 3. Multiple large incompetent bed placement coordinator veins bilaterally. 4. Consultation for venous ablation is recommended. Dictated by: Ana Elias M.D. on 01/23/2021 at 14:56 Approved by: Ana Elias M.D. on 01/23/2021 at 14:58 Normal [facility] CBC Auto DifferentialOrdered By: Zayra Sloan on 11-21-2020 Absolute Eos # 0.50 High [employer] [facility] Work Phone: Absolute Immature Granulocyte NOT REPORTED [employer] Work Phone: Absolute Lymph # 2.60 [employer] [facility] Work Phone: Absolute [place] # 0.80 [employer] [facility] Work Phone: Basophils (Bld) [#/Vol] 0.10 10*3/uL [employer] Work Phone: Basophils/100 WBC (Bld) 1 % 0 - 2 % [facility] Phone: Differential Type NOT REPORTED [facility] Phone: Eosinophils/100 WBC (Bld) 4 % 0 - 5 % [employer] Work Phone: Hematocrit (Bld) [Volume fraction] 30.2 % Low 36 - 46 % [facility] Phone: Hemoglobin.gastrointes tinal spec 1 Ql (Stl) 9.2 g/dL Low 12.0 - 16.0 g/dL [facility] Phone: Immature Granulocytes NOT REPORTED 0 % M [employer] Work Phone: Interpretation and review of laboratory results Abnormal [employer] Work Phone: Lymphocytes/100 WBC (Bld) 21 % 15 - 40 % [employer] Work Phone: MCH (RBC) [Entitic mass] 20.3 pg Low 26 - 34 pg [facility] Work Phone: MCHC (RBC) [Mass/Vol] 30.5 g/dL Low 31 - 37 g/dL [facility] [employer] Work Phone: MCV (RBC) [Entitic vol] 66.5 fL Low 80 - 100 fL [facility] Work Phone: Monocytes/100 WBC (Bld) 6 % 4 - 8 % [employer] Work Phone: Morphology Cole (Bld) [Interp] MODERATE ANISOCYTOSIS [facility] Work Phone: Morphology [place] (Bld) [Interp] MODERATE MICROCYTOSIS [employer] Work Phone: NRBC Automated NOT REPORTED per 100 WBC [employer] [facility] Work Phone: Platelet distribution width (Bld) [Ratio] 19.2 % High 12.1 - 15.2 % [employer] Work Phone: Platelet Estimate NOT REPORTED [facility] Phone: Platelet mean volume (Bld) [Entitic vol] NOT REPORTED 6.0 - 12.0 fL [employer] Work Phone: Platelets (Bld) [#/Vol] 442 10*3/uL [facility] Phone: RBC (Bld) [#/Vol] 4.54 10*6/uL 4.0 - 5.2 m/uL [employer] Work Phone: RBC (Bld) [#/Vol] NOT REPORTED [employer] Work Phone: Segmented neutrophils/100 WBC (Bld) 68 % 47 - 75 % [employer] Work Phone: Segs Absolute 8.60 High [facility] Work Phone: WBC (Bld) [#/Vol] 12.5 10*3/uL High [facility] [employer] Work Phone: WBC (Bld) [#/Vol] NOT REPORTED [facility] [employer] Work Phone: [facility] [employer] Work Phone: Iron And TIBCOrdered By: Alesia Sloan on 11-21-2020 Interpretation and review of laboratory results Abnormal [facility] [employer] Work Phone: Iron [Mass/Vol] 19 ug/dL Low 37 - 145 ug/dL [facility] [employer] Work Phone: Iron Saturation 6 % Low 20 - 55 % [facility] Work Phone: TIBC 343 ug/dL 250 - 450 ug/dL [facility] [employer] Work Phone: UIBC 324 ug/dL 112 - 347 ug/dL [facility] [employer] Work Phone: [facility] [employer] Work Phone: COVID-19on 05-23-2020 SARS-CoV-2, Rapid Not Detected Not Detected [place] Comment on above: Rapid NAAT: The specimen is NEGATIVE for SARS-CoV-2, the novel coronavirus associated with COVID-19. The ID NOW COVID-19 assay is designed to detect the virus that causes COVID-19 in patients with signs and symptoms of infection who are suspected of COVID-19. An individual without symptoms of COVID-19 and who is not shedding SARS-CoV-2 virus would expect to have a negative (not detected) result in this assay. Negative results should be treated as presumptive and, if inconsistent with clinical signs and symptoms or necessary for patient management, should be tested with an alternative molecular assay. Negative results do not preclude SARS-CoV-2 infection and should not be used as the sole basis for patient management decisions. Fact sheet for Healthcare Providers: https://www.fda.gov/media/092702/download Fact sheet for Patients: https://www.fda.gov/media/450586/download Methodology: Isothermal Nucleic Acid Amplification Source .THROAT [place] Glucose, Whole Bloodon 05-23 Glucose [Mass/Vol] 139 mg/dL High 65 - 99 mg/dL [place] Interpretation and review of laboratory results Abnormal [place] HCG Qualitative, Serumon hCG Qual Negative NEGATIVE [place] Comment on above: Specimens with hCG l evels near the threshold of the test (25 mIU/mL) may give a negative or indeterminate result. In such cases, another test should be performed with a new specimen in 48-72 hours. If early is suspected clinically in this setting, correlation with quantitative serum b-hCG level is suggested. [employer] has confirmed the use of plasma for this test. This has not been cleared or approved by the U.S. Food and Drug Administration. The FDA has determined that such clearance is not necessary. Otheron 05-23-2020 SARS-CoV-2 [place] COVID-19on 05-09-2020 SARS-CoV-2, Rapid Not Detected Not Detected [place] Comment on above: Rapid NAAT: The specimen is NEGATIVE for SARS-CoV-2, the novel coronavirus associated with COVID-19. The ID NOW COVID-19 assay is designed to detect the virus that causes COVID-19 in patients with signs and symptoms of infection who are suspected of COVID-19. An individual without symptoms of COVID-19 and who is not shedding SARS-CoV-2 virus would expect to have a negative (not detected) result in this assay. Negative results should be treated as presumptive and, if inconsistent with clinical signs and symptoms or necessary for patient management, should be tested with an alternative molecular assay. Negative results do not preclude SARS-CoV-2 infection and should not be used as the sole basis for patient management decisions. Fact sheet for Healthcare Providers: https://www.fda.gov/media/459408/download Fact sheet for Patients: https://www.fda.gov/media/635730/download Methodology: Isothermal Nucleic Acid Amplification Source .THROAT [place] LESS THAN 1 HOURon 2019 Radiology exam is complete. No Radiologist dictation. Please follow up with ordering provider. [place] Glucose, Whole Bloodon 05-09 Glucose [Mass/Vol] 119 mg/dL High 65 - 99 mg/dL [place] Interpretation and review of laboratory results Abnormal [place] Otheron 05-09-2020 SARS-CoV-2 [place] COVID-19on 04-11-2020 SARS-CoV-2, Rapid Not Detected Not Detected [place] Comment on above: Rapid NAAT: The specimen is NEGATIVE for SARS-CoV-2, the novel coronavirus associated with COVID-19. The ID NOW COVID-19 assay is designed to detect the virus that causes COVID-19 in patients with signs and symptoms of infection who are suspected of COVID-19. An individual without symptoms of COVID-19 and who is not shedding SARS-CoV-2 virus would expect to have a negative (not detected) result in this assay. Negative results should be treated as presumptive and, if inconsistent with clinical signs and symptoms or necessary for patient management, should be tested with an alternative molecular assay. Negative results do not preclude SARS-CoV-2 infection and should not be used as the sole basis for patient management decisions. Fact sheet for Healthcare Providers: https://www.fda.gov/media/111427/download Fact sheet for Patients: https://www.fda.gov/media/923425/download Methodology: Isothermal Nucleic Acid Amplification Source .THROAT [place] LESS THAN 1 HOURon 2019 Radiology exam is complete. No Radiologist dictation. Please follow up with ordering provider. [place] HCG Qualitative, Serumon hCG Qual Negative NEGATIVE [place] Comment on above: Specimens with hCG l evels near the threshold of the test (25 mIU/mL) may give a negative or indeterminate result. In such cases, another test should be performed with a new specimen in 48-72 hours. If early is suspected clinically in this setting, correlation with quantitative serum b-hCG level is suggested. [employer] has confirmed the use of plasma for this test. This has not been cleared or approved by the U.S. Food and Drug Administration. The FDA has determined that such clearance is not necessary. Otheron 04-11-2020 SARS-CoV-2 [place] COVID-19on 03-07-2020 SARS-CoV-2, Rapid Not Detected Not Detected [place] Comment on above: Rapid NAAT: The specimen is NEGATIVE for SARS-CoV-2, the novel coronavirus associated with COVID-19. The ID NOW COVID-19 assay is designed to detect the virus that causes COVID-19 in patients with signs and symptoms of infection who are suspected of COVID-19. An individual without symptoms of COVID-19 and who is not shedding SARS-CoV-2 virus would expect to have a negative (not detected) result in this assay. Negative results should be treated as presumptive and, if inconsistent with clinical signs and symptoms or necessary for patient management, should be tested with an alternative molecular assay. Negative results do not preclude SARS-CoV-2 infection and should not be used as the sole basis for patient management decisions. Fact sheet for Healthcare Providers: https://www.fda.gov/media/295061/download Fact sheet for Patients: https://www.fda.gov/media/465564/download Methodology: Isothermal Nucleic Acid Amplification Source .THROAT [place] LESS THAN 1 HOURon 2019 Radiology exam is complete. No Radiologist dictation. Please follow up with ordering provider. [place] Glucose, Whole Bloodon 03-07 Glucose [Mass/Vol] 117 mg/dL High 65 - 99 mg/dL [place] Interpretation and review of laboratory results Abnormal [place] Otheron 03-07-2020 SARS-CoV-2 [place] , Urineon 0 Beta HCG ( test) Ql (U) Negative NEGATIVE [place] DANIELLE DIGITAL SCREEN W OR WO C AD BILATERALon 11-16-2019 Stable mammogram. BI-RADS 1 - Negative, no evidence of malignancy. Normal interval followup in 12 months. OVERALL ASSESSMENT- NEGATIVE A letter of notification will be sent to the patient regarding the results. [place] HISTORY: Screening. TECHNIQUE: Craniocaudal and mediolateral oblique views of the breasts were obtained with digital mammography and CAD. COMPARISON: 02/25/2018, 10/30/2016 FINDINGS: Breasts are predominantly fatty density. No dominant masses, suspicious calcifications, or areas of architectural distortion are seen. [employer] [place] David, Mhpn Incoming Radiant Results From [facility] [employer] - 11/16/2019 1:31 PM EDT HISTORY: Screening. TECHNIQUE: Craniocaudal and mediolateral oblique views of the breasts were obtained with digital mammography and CAD. COMPARISON: 02/25/2018, 10/30/2016 FINDINGS: Breasts are predominantly fatty density. No dominant masses, suspicious calcifications, or areas of architectural distortion are seen. IMPRESSION: Stable mammogram. BI-RADS 1 - Negative, no evidence of malignancy. Normal interval followup in 12 months. OVERALL ASSESSMENT- NEGATIVE A letter of notification will be sent to the patient regarding the results. [employer] [place] Glucose, Whole BloodOrdered By: Darienmarisa Waters on 05-15-2019 Glucose [Mass/Vol] 122 mg/dL High 65 - 99 mg/dL [employer] Phone: Interpretation and review of laboratory results Abnormal [facility] Phone: HCG Qualitative, SerumOrdere d By: Darien Waters on 05-15-2019 hCG Qual Negative NEGATIVE [facility] Phone: Comment on above: Specimens with hCG l evels near the threshold of the test (25 mIU/mL) may give a negative or indeterminate result. In such cases, another test should be performed with a new specimen in 48-72 hours. If early is suspected clinically in this setting, correlation with quantitative serum b-hCG level is suggested. [employer] has confirmed the use of plasma for this test. This has not been cleared or approved by the U.S. Food and Drug Administration. The FDA has determined that such clearance is not necessary. CBC Auto Differentialon 11-0 Basophils (Bld) [#/Vol] 0.00 10*3/uL [facility] [employer] [place] Basophils/100 WBC (Bld) 0 % 0 - 2 % [facility] [place] Differential Type YES [place] Eosinophils (Bld) [#/Vol] 0.40 10*3/uL [facility] [place] Eosinophils/100 WBC (Bld) 5 % 0 - 5 % [place] Erythrocyte distribution width (RBC) [Ratio] 16.7 % High 12.1 - 15.2 % [place] Hematocrit (Bld) [Volume fraction] 35.8 % Low 36 - 46 % [place] Hemoglobin (Bld) [Mass/Vol] 11.3 g/dL Low 12 - 16 g/dL [place] Interpretation and review of laboratory results Abnormal [place] Lymphocytes (Bld) [#/Vol] 1.50 10*3/uL [place] Lymphocytes/100 WBC (Bld) 16 % 15 - 40 % [place] MCH (RBC) [Entitic mass] 23.8 pg Low 26 - 34 pg [place] MCHC (RBC) [Mass/Vol] 31.6 g/dL 31 - 37 g/dL M [place] MCV (RBC) [Entitic vol] 75.2 fL Low 80 - 100 fL [place] Monocytes (Bld) [#/Vol] 0.60 10*3/uL [place] Monocytes/100 WBC (Bld) 6 % 4 - 8 % [place] Platelet mean volume (Bld) [Entitic vol] NOT REPORTED 6 - 12 fL [place] Platelets (Bld) [#/Vol] 306 10*3/uL [place] Platelets (Bld) [#/Vol] NOT REPORTED [place] RBC (Bld) [#/Vol] 4.77 10*6/uL 4 - 5.2 m/uL [place] RBC morphology finding Nom (Bld) NOT REPORTED [place] Segmented neutrophils/100 WBC (Bld) 73 % 47 - 75 % [place] Segs Absolute 7.30 High [place] WBC (Bld) [#/Vol] 10.0 10*3/uL [place] WBC (Bld) [#/Vol] NOT REPORTED per 100 WBC [place] WBC Morphology NOT REPORTED [place] Hemoglobin A1Con 03-31-2019 Glucose [Mass/Vol] 160 mg/dL [place] Comment on above: The ADA and AACC rec ommend providing the estimated average glucose result to permit better patient understanding of their HBA1c result. HbA1c (Bld) [Mass fraction] 7.2 % High 4.8 - 5.9 % [place] Interpretation and review of laboratory results Abnormal [place] Lipid Panelon 03-31-2019 Cholesterol [Mass/Vol] 156 mg/dL <200 [place] Comment on above: Cholesterol Guidelines: <200 Desirable 200-240 Borderline >240 Undesirable Cholesterol in HDL [Mass/Vol] 43 mg/dL >40 [place] Comment on above: HDL Guidelines: <40 Undesirable 40-59 Borderline >59 Desirable Cholesterol in LDL [Mass/Vol] 84 mg/dL 0 - 130 mg/dL [place] Comment on above: LDL Guidelines: <100 Desirable 100-129 Near to/above Desirable 130-159 Borderline >159 Undesirable Direct (measured) LDL and calculated LDL are not interchangeable tests. Cholesterol in VLDL [Mass/Vol] NOT REPORTED 1 - 30 mg/dL [place] Cholesterol.total/Chol esterol in HDL [Mass ratio] 3.6 {ratio} <5 [place] Triglyceride [Mass/Vol] 146 mg/dL <150 [place] Comment on above: Triglyceride Guidelines: <150 Desirable 150-199 Borderline 200-499 High >499 Very high Based on AHA Guidelines for fasting triglyceride, February 2012. Otheron 03-31-2019 Immature granulocytes (Bld) [#/Vol] NOT REPORTED [place] Patient Fasting?on 9 Patient Fasting? yes [place] TSH with Reflexon 03-31-2019 TSH Qn 2.43 m[IU]/L [place] XR CHEST STANDARD (2 VW)on Nonacute two-view chest. [place] EXAM: XR CHEST (2 VW ) HISTORY: Reason for exam:->continued cough for 2 months with wheezing. COMPARISON: Portable chest from 01/27/2014. TECHNIQUE: Frontal and lateral films are done of the chest. FINDINGS: Trachea, mediastinum and heart size are unremarkable. No effusion or nodule or pneumothorax or infiltrate is noted. Diaphragm and bony elements are intact. [facility]board[facility]FIELD[facility] David, Mhpn Incoming Radiant Results From [facility] - 03/18/2019 12:02 PM EDT EXAM: XR CHEST (2 VW) HISTORY: Reason for exam:->continued cough for 2 months with wheezing. COMPARISON: Portable chest from 01/27/2014. TECHNIQUE: Frontal and lateral films are done of the chest. FINDINGS: Trachea, mediastinum and heart size are unremarkable. No effusion or nodule or pneumothorax or infiltrate is noted. Diaphragm and bony elements are intact. IMPRESSION: Nonacute two-view chest. [facility] Vital Signs Date Time Vital Sign Value Performing Clinician Faci litabran 03-17-2024 15:32-0400 Body height 167.6 [facility] 03-17-2024 15:32-0400 Body mass index (BMI) [Ratio] 53.91 kg/m2 [facility] [employer] 03-17-2024 15:32-0400 Body weight 151.5 kg [facility] [employer] 12-24-2023 10:22-0400 Body temperature 98.29 [degF] Zayra Sloan DO Work Phone: [facility] 12-24-2023 10:22-0400 Diastolic blood pressure 98 mm[Hg] Zayra Sloan DO Work Phone: [facility] 12-24-2023 10:22-0400 Heart rate 94 /min Zayra Sloan DO Work Phone: [facility] 12-24-2023 10:22-0400 Respiratory rate 16 /min Zayra Sloan DO Work Phone: [facility] [employer] 12-24-2023 10:22-0400 SaO2% (BldA) [Mass fraction] 97 % Zayra Sloan DO Work Phone: [facility] 12-24-2023 10:22-0400 Systolic blood pressure 124 mm[Hg] Zayra Sloan DO Work Phone: [facility] 07-02-2023 09:50-0500 Diastolic blood pressure 80 mm[Hg] Elliot Zheng MD Work Phone: [facility] 07-02-2023 09:50-0500 Heart rate 85 /min Elliot Zheng MD Work Phone: [facility] 07-02-2023 09:50-0500 SaO2% (BldA) [Mass fraction] 93 % Elliot Zheng MD Work Phone: [facility] 07-02-2023 09:50-0500 Systolic blood pressure 129 mm[Hg] Elliot Zheng MD Work Phone: [facility] 07-02-2023 09:37-0500 Body temperature 97 [degF] Elliot Zheng MD Work Phone: [facility] 07-02-2023 09:37-0500 Respiratory rate 13 /min Elliot Zheng MD Work Phone: [facility] 07-02-2023 08:35-0500 Body height 167.6 cm Elliot Zheng MD Work Phone: [facility] 07-02-2023 08:35-0500 Body mass index (BMI) [Ratio] 59.24 kg/m2 Elliot Zheng MD Work Phone: [facility] 07-02-2023 08:35-0500 Body weight 166.47 kg Elliot Zheng MD Work Phone: [facility] 02-11-2023 15:30-0400 Heart rate 91 /min Elliot Zheng MD Work Phone: [facility] 02-11-2023 15:30-0400 SaO2% (BldA) [Mass fraction] 93 % Elliot Zheng MD Work Phone: [facility] 02-11-2023 15:20-0400 Diastolic blood pressure 67 mm[Hg] Elliot Zheng MD Work Phone: [facility] 02-11-2023 15:20-0400 Respiratory rate 16 /min Elliot Zheng MD Work Phone: [facility] 02-11-2023 15:20-0400 Systolic blood pressure 123 mm[Hg] Elliot Zheng MD Work Phone: [facility] 02-11-2023 15:00-0400 Body temperature 97.3 [degF] Elliot Zheng MD Work Phone: [facility] 02-11-2023 08:47-0400 Body height 167.6 cm Elliot Zheng MD Work Phone: [facility] 02-11-2023 08:47-0400 Body mass index (BMI) [Ratio] 59.24 kg/m2 Elliot Zheng MD Work Phone: [facility] 02-11-2023 08:47-0400 Body weight 166.47 kg Elliot Zheng MD Work Phone: [facility] 12-15-2022 13:27-0400 Body height 167.6 cm Keila Hemphill MD Work Phone: [facility] 12-15-2022 13:27-0400 Body mass index (BMI) [Ratio] 59.24 kg/m2 Keila Hemphill MD Work Phone: [facility] 12-15-2022 13:27-0400 Body weight 166.47 kg Keila Hemphill MD Work Phone: [facility] 10-23-2022 12:42-0400 Body height 167.6 cm Keila Hemphill MD Work Phone: [facility] 10-23-2022 12:42-0400 Body mass index (BMI) [Ratio] 59.39 kg/m2 Keila Hemphill MD Work Phone: [facility] 10-23-2022 12:42-0400 Body weight 166.9 kg Keila Hemphill MD Work Phone: [facility] 09-23-2022 13:06-0400 Diastolic blood pressure 65 mm[Hg] Kelley Shannon DO Work Phone: [facility] 09-23-2022 13:06-0400 Systolic blood pressure 114 mm[Hg] Kelley Shannon DO Work Phone: [facility] 09-23-2022 11:23-0400 SaO2% (BldA) [Mass fraction] 92 % Kelley Shannon DO Work Phone: [facility] 09-23-2022 11:15-0400 Heart rate 105 /min Kelley Shannon DO Work Phone: [facility] 09-23-2022 10:12-0400 Body temperature 99.39 [degF] Kelley Shannon DO Work Phone: [facility] 09-23-2022 10:12-0400 Respiratory rate 18 /min Kelley Shannon DO Work Phone: [facility] 09-09-2022 10:13-0400 Respiratory rate 16 /min Clemencia Gambino MD Work Phone: [facility] 09-09-2022 08:46-0400 Body temperature 98.29 [degF] Clemencia Gambino MD Work Phone: [facility] 09-09-2022 08:46-0400 Diastolic blood pressure 87 mm[Hg] Clemencia Gambino MD Work Phone: [facility] 09-09-2022 08:46-0400 Heart rate 78 /min Clemencia Gambino MD Work Phone: [facility] 09-09-2022 08:46-0400 SaO2% (BldA) [Mass fraction] 95 % Clemencia Gambino MD Work Phone: [facility] 09-09-2022 08:46-0400 Systolic blood pressure 141 mm[Hg] Clemencia Gambino MD Work Phone: [facility] 09-08-2022 06:34-0400 Body height 167.6 cm Clemencia Gambino MD Work Phone: [facility] 09-08-2022 06:34-0400 Body mass index (BMI) [Ratio] 59.4 kg/m2 Clemencia Gambino MD Work Phone: [facility] 09-08-2022 06:34-0400 Body weight 166.92 kg Clemencia Gambino MD Work Phone: [facility] 08-14-2022 12:51-0400 Body height 167.6 cm Keila Hemphill MD Work Phone: [facility] 08-14-2022 12:51-0400 Body mass index (BMI) [Ratio] 59.4 kg/m2 Keila Hemphill MD Work Phone: [facility] 08-14-2022 12:51-0400 Body weight 166.92 kg Keila Hemphill MD Work Phone: [facility] 08-13-2022 09:30-0400 Body height 167.6 cm Keila Hemphill MD Work Phone: [facility] 08-13-2022 09:30-0400 Body mass index (BMI) [Ratio] 59.4 kg/m2 Keila Hemphill MD Work Phone: [facility] 08-13-2022 09:30-0400 Body weight 166.92 kg Keila Hemphill MD Work Phone: [facility] 06-23-2022 07:40-0500 Body height 167.6 cm Keila Hemphill MD Work Phone: [facility] 06-23-2022 07:40-0500 Body mass index (BMI) [Ratio] 59.4 kg/m2 Keila Hemphill MD Work Phone: [facility] 06-23-2022 07:40-0500 Body weight 166.92 kg Keila Hemphill MD Work Phone: [facility] 12-20-2021 12:37-0400 Body temperature 98.71 [degF] [facility] 12-20-[facility]21 12:37-0400 Diastolic blood pressure 91 mm[Hg] [facility] 12-20-2021 12:37-0400 Heart rate 88 /min [facility] 12-20-2021 12:37-0400 Respiratory rate 18 /min [facility] 12-20-2021 12:37-0400 SaO2% (BldA) [Mass fraction] 97 % Adrien Somers MD [facility] 12-20-2021 12:37-0400 Systolic blood pressure 133 mm[Hg] [facility] 12-10-2021 13:45-0400 Body temperature 97.2 [degF] Frank Pickering MD Work Phone: [facility] 12-10-2021 13:45-0400 Diastolic blood pressure 88 mm[Hg] Frank Pickering MD Work Phone: [facility] 12-10-2021 13:45-0400 Heart rate 78 /min Frank Pickering MD Work Phone: [facility] 12-10-2021 13:45-0400 Respiratory rate 18 /min Frank Pickering MD Work Phone: [facility] 12-10-2021 13:45-0400 SaO2% (BldA) [Mass fraction] 95 % Frank Pickering MD Work Phone: [facility] 12-10-2021 13:45-0400 Systolic blood pressure 158 mm[Hg] Frank Pickering MD Work Phone: [facility] 12-10-2021 09:41-0400 Body height 167.6 cm Frank Pickering MD Work Phone: [email or web address] 12-10-2021 09:41-0400 Body mass index (BMI) [Ratio] 57.14 kg/m2 Frank Pickering MD Work Phone: [facility] 12-10-2021 09:41-0400 Body weight 160.57 kg Frank Pickering MD Work Phone: [facility] 12-04-2021 10:31-0400 Body height 167.6 cm Frank Pickering MD Work Phone: [facility] 12-04-2021 10:31-0400 Body mass index (BMI) [Ratio] 56.78 kg/m2 Frank Pickering MD Work Phone: [facility] 12-04-2021 10:31-0400 Body temperature 98.6 [degF] Frank Pickering MD Work Phone: [facility] 12-04-2021 10:31-0400 Body weight 159.57 kg Frank Pickering MD Work Phone: [email or web address] 12-04-2021 10:31-0400 Diastolic blood pressure 104 mm[Hg] Frank Pickering MD Work Phone: [email or web address] Comment on above: Patient states she does not take BP med until lunchtime. 12-04-2021 10:31-0400 Heart rate 95 /min Frank Pickering MD Work Phone: [email or web address] 12-04-2021 10:31-0400 Respiratory rate 22 /min Frank Pickering MD Work Phone: [email or web address] 12-04-2021 10:31-0400 SaO2% (BldA) [Mass fraction] 98 % Frank Pickering MD Work Phone: [email or web address] 12-04-2021 10:31-0400 Systolic blood pressure 162 mm[Hg] Frank Pickering MD Work Phone: [email or web address] Comment on above: Patient states she does not take BP med until lunchtime. 06-01-2021 14:32-0500 Diastolic blood pressure 112 mm[Hg] Lorie Win MD Work Phone: [employer] 06-01-2021 14:32-0500 Systolic blood pressure 167 mm[Hg] Lorie Win MD Work Phone: [employer] 06-01-2021 14:30-0500 Body mass index (BMI) [Ratio] 58.68 kg/m2 Lorie Win MD Work Phone: [employer] 06-01-2021 14:30-0500 Body temperature 98.71 [degF] Lorie Win MD Work Phone: [employer] 06-01-2021 14:30-0500 Body weight 167.42 kg Lorie Win MD Work Phone: [employer] 06-01-2021 14:30-0500 Heart rate 102 /min Lorie Win MD Work Phone: [employer] 06-01-2021 14:30-0500 Respiratory rate 18 /min Lorie Win MD Work Phone: [employer] 06-01-2021 14:30-0500 SaO2% (BldA) [Mass fraction] 97 % Lorie Win MD Work Phone: [employer] 05-23-2020 10:17-0500 BP Diastolic 97 mm[Hg] [place] 05-23-2020 10:17-0500 BP Systolic 150 mm[Hg] [place] 05-23-2020 10:17-0500 Pulse (Heart Rate) 87 /min [facility] [place] 05-23-2020 10:17-0500 Pulse Oximetry 98 % [facility] [place] 05-23-2020 10:17-0500 Respiratory Rate 18 /min [facility] [place] 05-23-2020 09:46-0500 Body Temperature 97.59 [degF] [facility], [place] 05-23-2020 06:55-0500 BMI (Body Mass Index) 65.37 kg/m2 [facility] 05-23-2020 06:55-0500 Body weight 183.71 kg [facility] 05-23-2020 06:55-0500 Height 167.6 cm [facility] 05-09-2020 13:17-0500 BP Diastolic 84 mm[Hg] [facility] 05-09-2020 13:17-0500 BP Systolic 150 mm[Hg] [facility] 05-09-2020 13:17-0500 Pulse (Heart Rate) 89 /min [facility] 05-09-2020 13:17-0500 Pulse Oximetry 98 % [facility] 05-09-2020 13:17-0500 Respiratory Rate 16 /min [facility] 05-09-2020 12:51-0500 Body Temperature 98.91 [degF] [facility] 05-09-2020 11:15-0500 BMI (Body Mass Index) 65.55 kg/m2 [facility] 05-09-2020 11:15-0500 Body weight 184.21 kg [facility] 05-09-2020 11:15-0500 Height 167.6 cm [facility] 04-11-2020 15:43-0500 BP Diastolic 85 mm[Hg] [facility] 04-11-2020 15:43-0500 BP Systolic 145 mm[Hg] [facility] 04-11-2020 15:43-0500 Pulse (Heart Rate) 100 /min [facility] 04-11-2020 15:43-0500 Pulse Oximetry 96 % [facility] 04-11-2020 15:43-0500 Respiratory Rate 18 /min [facility] 04-11-2020 15:10-0500 Body Temperature 98.4 [degF] [facility] 04-11-2020 12:05-0500 BMI (Body Mass Index) 64.32 kg/m2 [facility] 04-11-2020 12:05-0500 Body weight 180.76 kg [facility] 04-11-2020 12:05-0500 Height 167.6 cm [facility] 03-07-2020 14:44-0400 BP Diastolic 107 mm[Hg] [facility] 03-07-2020 14:44-0400 BP Systolic 164 mm[Hg] [facility] 03-07-2020 14:44-0400 Pulse (Heart Rate) 95 /min [facility] 03-07-2020 14:42-0400 Pulse Oximetry 95 % [facility] 03-07-2020 14:42-0400 Respiratory Rate 20 /min [facility] 03-07-2020 14:07-0400 Body Temperature 99 [degF] [facility] 03-07-2020 12:34-0400 BMI (Body Mass Index) 65.69 kg/m2 [facility] 03-07-2020 12:34-0400 Body weight 184.61 kg [facility] 03-07-2020 12:34-0400 Height 167.6 cm [facility] 12-20-2019 18:08-0400 BP Diastolic 81 mm[Hg] [facility], [place] 12-20-2019 18:08-0400 BP Systolic 136 mm[Hg] [facility] 12-20-2019 18:08-0400 Pulse Oximetry 96 % [facility] 12-20-2019 18:02-0400 Pulse (Heart Rate) 98 /[facility] [place] 12-20-2019 18:02-0400 Respiratory Rate 18 /min [facility] [place] 12-20-2019 17:06-0400 BMI (Body Mass Index) 64.26 kg/m2 [facility] 12-20-2019 17:06-0400 Body Temperature 99.19 [degF] [facility] [place] 12-20-2019 17:06-0400 Body weight 180.58 kg [facility], [place] 05-15-2019 10:13-0500 Diastolic blood pressure 72 mm[Hg] Darien Waters MD Work Phone: [facility] [employer] Work Phone: 05-15-2019 10:13-0500 Heart rate 87 /min Darien Waters MD Work Phone: [employer] Work Phone: 05-15-2019 10:13-0500 Respiratory rate 16 /min Darien Waters MD Work Phone: [employer] Work Phone: 05-15-2019 10:13-0500 SaO2% (BldA) [Mass fraction] 94 % Darien Waters MD Work Phone: [employer] Work Phone: 05-15-2019 10:13-0500 Systolic blood pressure 104 mm[Hg] Darien Waters MD Work Phone: [employer] Work Phone: 05-15-2019 09:42-0500 Body temperature 97.81 [degF] Darien Waters MD Work Phone: [employer] Work Phone: 05-15-2019 07:36-0500 Body height 167.6 cm Darien Waters MD Work Phone: [facility] Work Phone: 05-15-2019 07:36-0500 Body mass index (BMI) [Ratio] 62.46 kg/m2 Darien Waters MD Work Phone: [facility] Work Phone: 05-15-2019 07:36-0500 Body weight 175.54 kg Darien Waters MD Work Phone: [facility] Work Phone: 04-11-2019 12:54-0500 Pulse Oximetry 98 % [facility] [place] [place] Encounters Encounter Date Encounter Type Care Provider Facility Start: 03-17-2024 End: 03-19-2024 ambulatory [facility] Start: 03-17-2024 End: 03-19-2024 Subsequent hospital visit by physician [facility] M[facility] Comment on above: Breast cancer screen ing by mammogram Start: 02-21-2024 End: 02-21-2024 ambulatory Bing Rodriguez MD Facility:[facility] Start: 02-14-2024 End: 02-14-2024 [facility] Start: 02-02-2024 End: 02-02-2024 ambulatory [facility] Start: 01-24-2024 End: 01-24-2024 ambulatory Bing Rodriguez MD Facility: [facility] Start: 01-11-2024 End: 01-11-2024 Emergency department patient visit [facility] Start: 01-07-2024 End: 01-07-2024 [facility] Start: 12-24-2023 End: 12-24-2023 Emergency department patient visit [facility] ED Comment on above: 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) Start: 10-19-2023 End: 10-22-2023 Evaluation and management of inpatient [facility] Start: 10-01-2023 End: 10-01-2023 ambulatory [facility] Start: 10-01-2023 Encounter for other preprocedural examination [facility] Start: 10-01-2023 End: 10-05-2023 ambulatory [facility] Start: 09-02-2023 ambulatory [facility] Start: 08-23-2023 End: 08-23-2023 ambulatory [facility] Start: 08-19-2023 End: 08-19-2023 ambulatory [facility] Start: 08-16-2023 End: 08-16-2023 [facility] Start: 08-12-2023 End: 08-12-2023 [facility] Start: 08-10-2023 [facility] Start: 08-10-2023 End: 08-10-2023 Subsequent hospital visit by physician Elliot Zheng MD Work Phone: [facility] Comment on above: Arrived Start: 08-06-2023 End: 08-06-2023 [facility] Start: 08-02-2023 ambulatory KEILA HEMPHILL [facility] Start: 08-02-2023 End: 08-02-2023 Patient encounter procedure Keila Hemphill MD Work Phone: [facility] Comment on above: Osteoarthritis of renato th sacroiliac joints (Primary Dx) Start: 07-02-2023 End: 07-02-2023 [facility] Start: 07-02-2023 End: 07-02-2023 Subsequent hospital visit by physician Elliot Zheng MD Work Phone: [facility] Comment on above: Spinal stenosis of l umbar region with neurogenic claudication Start: 06-29-2023 ambulatory [facility] Start: 06-29-2023 Encounter for other preprocedural examination [facility] Start: 06-10-2023 ambulatory [facility] Start: 05-03-2023 ambulatory [facility] Start: 05-03-2023 End: 05-03-2023 Subsequent hospital visit by physician Elliot Zheng MD Work Phone: [facility] Comment on above: Arrived Start: 04-23-2023 ambulatory [facility] Start: 03-01-2023 [facility] Start: 03-01-2023 End: 03-01-2023 Subsequent hospital visit by physician Elliot Zheng MD Work Phone: [facility] Comment on above: Arrived Start: 02-11-2023 End: 02-11-2023 [facility] Start: 02-11-2023 End: 02-11-2023 Subsequent hospital visit by physician Elliot Zheng MD Work Phone: [facility] Comment on above: Sacroiliitis Start: 02-10-2023 ambulatory [facility] Start: 02-03-2023 [facility] Start: 02-03-2023 [facility] Start: 01-28-2023 ambulatory [facility] Start: 01-08-2023 ambulatory [facility] Start: 01-08-2023 End: 01-08-2023 Subsequent hospital visit by physician Elliot Zheng MD Work Phone: [facility] Comment on above: Arrived Start: 12-15-2022 ambulatory [facility] Start: 12-15-2022 End: 12-15-2022 Office outpatient visit 15 minutes Keila Hemphill MD Work Phone: [facility] Comment on above: Osteoarthritis of renato th sacroiliac joints (Primary Dx); Pain of both sacroiliac joints Start: 10-23-2022 ambulatory [facility] Start: 10-23-2022 End: 10-23-2022 Office outpatient visit 15 minutes Keila Hemphill MD Work Phone: [facility] Comment on above: Osteoarthritis of renato th sacroiliac joints (Primary Dx); Pain of both sacroiliac joints; Pain of left hip Start: 09-23-2022 End: 09-23-2022 Emergency department patient visit Kelley Shannon DO Work Phone: [facility] ED Comment on above: Pneumonia of both lo wer lobes due to infectious organism (Primary Dx) Start: 09-08-2022 End: [facility] Start: 09-08-2022 End: 09-09-2022 Subsequent hospital visit by physician Clemencia Campos MD Work Phone: [address] Onc/Med Surg Comment on above: S/p RALH, BSO 08/29 06/22 (Primary Dx); Post endometrial ablation syndrome; Pelvic pain in female Start: 08-25-2022 End: 08-25-2022 Patient encounter status Zayra Sloan DO Work Phone: [facility] Start: 08-25-2022 End: 08-27-2022 Subsequent hospital visit by physician Zayra Sloan DO Work Phone: [facility] Comment on above: Pre-op chest exam Start: 08-17-2022 End: 08-17-2022 Subsequent hospital visit by physician Dayanna Springer PT [facility] Physical Therapy Comment on above: Arrived Start: 08-14-2022 ambulatory [facility] Start: 08-14-2022 End: 08-14-2022 Subsequent hospital visit by physician Keila Hemphill MD Work Phone: [facility] Procedure Images Comment on above: Arrived Start: 08-14-2022 End: 08-14-2022 Patient encounter procedure Keila Hemphill MD Work Phone: [facility] Comment on above: Osteoarthritis of renato th sacroiliac joints (Primary Dx); Pain of both sacroiliac joints Start: 08-13-2022 End: 08-13-2022 Subsequent hospital visit by physician Sarah Tony [facility] Comment on above: Arrived Start: 08-13-2022 ambulatory [facility] Start: 08-13-2022 End: 08-13-2022 Office outpatient visit 15 minutes Keila Hemphill MD Work Phone: [facility] Comment on above: Osteoarthritis of renato th sacroiliac joints (Primary Dx); Pain of both sacroiliac joints Start: 08-11-2022 End: 08-11-2022 Subsequent hospital visit by physician Sarah Tony [facility] Comment on above: Arrived Start: 08-04-2022 End: 08-04-2022 Subsequent hospital visit by physician Sarah Tony [facility] Comment on above: Arrived Start: 07-30-2022 End: 07-30-2022 Subsequent hospital visit by physician [facility]ayra Sloan DO [facility] Comment on above: Left ovarian cyst Start: 07-30-2022 End: 07-30-2022 Subsequent hospital visit by physician Sarah Tony [facility] Comment on above: Arrived Start: 07-28-2022 End: 07-28-2022 Subsequent hospital visit by physician Dayanna Springer PT [facility] Comment on above: Arrived Start: 07-22-2022 End: 07-22-2022 Subsequent hospital visit by physician Dayanna Springer PT [facility] Comment on above: Arrived Start: 07-20-2022 End: 07-20-2022 Subsequent hospital visit by physician Dayanna L Felter PT [facility] Comment on above: Arrived Start: 06-23-2022 End: 06-23-2022 Office outpatient new 45 minutes Keila Hemphill MD Work Phone: [facility] Comment on above: Osteoarthritis of renato th sacroiliac joints (Primary Dx); Pain of both sacroiliac joints; Other spondylosis with radiculopathy, lumbar region; Spinal stenosis, lumbar region with neurogenic claudication Start: 2022 ambulatory [facility] Start: 06-10-2022 End: 06-12-2022 Subsequent hospital visit by physician Devi [facility] Comment on above: Low back pain, unspe cified back pain laterality, unspecified chronicity, unspecified whether sciatica present Start: 05-18-2022 End: 05-20-2022 Subsequent hospital visit by physician [facility] MRI Comment on above: Chronic bilateral lo w back pain with bilateral sciatica Start: 04-06-2022 End: 04-06-2022 Subsequent hospital visit by physician Dayanna Springer PT [facility] Comment on above: Arrived Start: 04-01-2022 End: 04-01-2022 Subsequent hospital visit by physician Jenn Carrasco [facility] Comment on above: Arrived Start: 03-26-2022 End: 03-26-2022 Subsequent hospital visit by physician Zayra Sloan DO Work Phone: [facility] Laboratory Start: 03-24-2022 End: 03-24-2022 Subsequent hospital visit by physician Dayanna Springer PT [facility] Comment on above: Arrived Start: 03-19-2022 End: 03-19-2022 Subsequent hospital visit by physician Jenn Carrasco [facility] Comment on above: Arrived Start: 03-17-2022 End: 03-17-2022 Subsequent hospital visit by physician Dayanna Springer PT [facility] Comment on above: Arrived Start: 03-05-2022 End: 03-05-2022 Subsequent hospital visit by physician Jenn Carrasco [facility] Comment on above: Arrived Start: 03-03-2022 End: 03-03-2022 Subsequent hospital visit by physician Dayanna Springer PT [facility] Comment on above: Arrived Start: 02-24-2022 End: 02-24-2022 Subsequent hospital visit by physician Dayanna Springer PT [facility] Comment on above: Arrived Start: 01-28-2022 End: 01-28-2022 Patient encounter procedure [facility] [address] Start: 01-07-2022 End: 01-07-2022 Subsequent hospital visit by physician Zayra Sloan DO Work Phone: [email or web address] Start: 12-20-2021 End: 12-20-2021 Emergency department patient visit Adrien Somers MD [facility] ED Comment on above: Rash (Primary Dx); Allergic reaction, initial encounter Start: 12-10-2021 End: 12-10-2021 Subsequent hospital visit by physician Frank Pickering MD Work Phone: [email or web address] Comment on above: Dysmenorrhea Start: 12-04-2021 End: 12-08-2021 Patient encounter status Frank Pickering MD Work Phone: [facility] Start: 12-04-2021 End: 12-08-2021 Subsequent hospital visit by physician Frank Pickering MD Work Phone: [facility] Comment on above: Pre-op testing Start: 09-18-2021 End: 09-18-2021 Subsequent hospital visit by physician Zayra Sloan DO Work Phone: [email or web address] Comment on above: Type 2 diabetes ирина itus without complication, without long- term current use of insulin (HCC); Encounter for hepatitis C screening test for low risk patient; Iron deficiency anemia due to chronic blood loss Start: 06-01-2021 End: 06-01-2021 Emergency department patient visit Lorie Win MD Work Phone: [facility] ED Comment on above: Adverse effect of dr domínguez, initial encounter (Primary Dx) Start: 04-02-2021 End: 04-02-2021 Subsequent hospital visit by physician Zayra Sloan DO Work Phone: [facility] Comment on above: Iron deficiency anem ia due to chronic blood loss; Type 2 diabetes mellitus without complication, without long-term current use of insulin (HCC) Start: 04-02-2021 End: 04-04-2021 Subsequent hospital visit by physician Zayra Sloan DO Work Phone: [facility] Start: 03-12-2021 End: 03-13-[address] DOCTOR WOODRUFF Facility:H1 Start: 03-06-2021 End: 03-07-[address] GLENN LOUISE Facility:H1 Start: 02-26-2021 End: 02-27-[address] GLENN LOUISE Facility:H1 Start: 02-20-2021 End: 02-21-[address] DOCTOR WOODRUFF Facility:H1 Start: 02-04-2021 End: 02-04-2021 Subsequent hospital visit by physician Devi Aleman Pat Screening Schedule [facility] Comment on above: Suspected COVID-19 v irus infection Start: 01-23-2021 End: 01-24-[address] DOCTOR WOODRUFF Facility:H1 Start: 01-02-2021 End: 01-03-[address] DOCTOR WOODRUFF Facility:H1 Start: 11-21-2020 End: 11-21-2020 Subsequent hospital visit by physician Zayra Sloan DO Work Phone: [facility] Comment on above: Iron deficiency anem ia due to chronic blood loss Start: 05-23-2020 End: 05-23-2020 Subsequent hospital visit by physician Sukhdev Galeano Work Phone: [facility] OR Start: 05-23-2020 End: 05-23-2020 Subsequent hospital visit by physician Devi Aleman Pat Screening Schedule [facility] Comment on above: Arrived Start: 05-09-2020 End: 05-09-2020 Subsequent hospital visit by physician Suhkdev Galeano Work Phone: [facility] OR Start: 05-09-2020 End: 05-09-2020 Subsequent hospital visit by physician Devi Aleman Pat Screening Schedule [facility] Comment on above: Arrived Start: 04-11-2020 End: 04-11-2020 Subsequent hospital visit by physician Sukhdev Galeano Work Phone: [facility] OR Start: 04-11-2020 End: 04-11-2020 Subsequent hospital visit by physician Devi Aleman Pat Screening Schedule [facility] Comment on above: Arrived Start: 04-02-2020 End: 04-02-2020 Subsequent hospital visit by physician Zayra SHELDON Laboratory Comment on above: Viral URI with cough Start: 03-07-2020 End: 03-07-2020 Subsequent hospital visit by physician Devi Aleman Pat Screening Schedule [facility] Start: 03-07-2020 End: 03-07-2020 Subsequent hospital visit by physician Sukhdev Galeano Work Phone: [facility] OR Start: 12-20-2019 End: 12-20-2019 Emergency department patient visit Clemencia Sun Work Phone: [facility] ED Comment on above: Acute right-sided lo w back pain with right-sided sciatica (Primary Dx) Start: 11-14-2019 End: 11-16-2019 Subsequent hospital visit by physician Devi Mammography Room [facility] Mammography Comment on above: Breast cancer screen ing by mammogram Start: 05-18-2019 End: 05-20-2019 Subsequent hospital visit by physician Devi Gen Radiologist [facility] Radiology Comment on above: Arrived Start: 05-15-2019 End: 05-15-2019 Subsequent hospital visit by physician Darien Waters MD Work Phone: [facility] Endoscopy Start: 04-11-2019 End: 04-11-2019 Subsequent hospital visit by physician Devi Pulmonary Function Rm SHRAV[facility] PFT Comment on above: Arrived Start: 03-31-2019 End: 03-31-2019 Subsequent hospital visit by physician Zayra SHELDON Laboratory Comment on above: Screening for cardio vascular condition; Weight gain; Prediabetes; Decreased hemoglobin Start: 03-18-2019 End: 03-20-2019 Subsequent hospital visit by physician Devi Dig Rad 1 [facility] Radiology Comment on above: Acute bronchitis, un specified organism Procedures Date Procedure Procedure Detail Performing Clinician Start: 12-24-2023 Radiologic examinati on knee 3 views Adrien Somers MD Start: 08-10-2023 End: 08-10-2023 Mri pelvis w/o contrast material Elliot Zheng MD Work Phone: Start: 08-02-2023 US Unspecified body region Keila Hemphill MD Work Phone: Start: 08-02-2023 Arthrocentesis aspir &/inj major jt/bursa w/us Keila Hemphill MD Work Phone: Start: 07-02-2023 Gluc bld gluc mntr d ev cleared fda spec home use Elliot Zheng MD Work Phone: Start: 05-03-2023 Radex spine lumbscrl compl w/bending views min 6 Elliot Zheng MD Work Phone: Start: 03-01-2023 Radex spine lumbosac ral 2/3 views Elliot Zheng MD Work Phone: Start: 02-11-2023 Gluc bld gluc mntr d ev cleared fda spec home use Elliot Zheng MD Work Phone: Start: 01-08-2023 Radex spine lumbscrl compl w/bending views min 6 Elliot Zheng MD Work Phone: Start: 12-15-2022 US Unspecified body region Keila Hemphill MD Work Phone: Start: 12-15-2022 Arthrocentesis aspir &/inj major jt/bursa w/us Keila Hemphill MD Work Phone: Start: 10-23-2022 Follow-up visit Follow-up KEILA HEMPHILL Start: 10-23-2022 Arthrocentesis aspir &/inj major jt/bursa w/o us Keila Hemphill MD Work Phone: Start: 09-23-2022 Radiologic exam ches t single view Kelley J Shannon DO Work Phone: Start: 09-23-2022 Ct abdomen & pelvis w/contrast material Kelley J Shannon DO Work Phone: Start: 09-23-2022 Urinalysis microscopic only Kelley Shannon DO Work Phone: Start: 09-23-2022 Urnls dip stick/tabl et rgnt auto w/o microscopy Kelley Shannon DO Work Phone: Start: 09-23-2022 Comprehensive metabo lic panel Kelley Shannon DO Work Phone: Start: 09-09-2022 Glucose blood reagent strip Clemencia Campos MD Work Phone: Start: 09-09-2022 Glucose blood reagent strip Clemencia Campos MD Work Phone: Start: 09-09-2022 Blood count complete auto&auto difrntl wbc Ashwin Zapata DO Work Phone: Start: 09-08-2022 Glucose blood reagent strip Clemencia Campos MD Work Phone: Start: 09-08-2022 Glucose blood reagent strip Clemencia Campos MD Work Phone: Start: 09-08-2022 Glucose blood reagent strip Clemencia Campos MD Work Phone: Start: 09-08-2022 Glucose blood reagent strip Clemencia Campos MD Work Phone: Start: 09-08-2022 End: 09-08-2022 Gonadotropin chorionic qualitative Francisco Cool MD Work Phone: Start: 09-08-2022 Immunoassay tumor an tigen quantitative ca 125 Clemencia Campos MD Work Phone: Start: 08-25-2022 Ecg routine ecg w/le ast 12 lds w/i&r Tino Sánchez PAGeremiasC Work Phone: Start: 08-14-2022 US Unspecified body region Keila Hemphill MD Work Phone: Start: 08-14-2022 Arthrocentesis aspir &/inj major jt/bursa w/us Jose London ATC Start: 07-30-2022 Gonadotropin follicl e stimulating hormone Frank Pickering MD Work Phone: Start: 06-23-2022 Injection single/gas usage meter clerk trigger point 1/2 muscles Jose London ATC Start: 06-10-2022 Radex spine lumbscrl compl w/bending views min 6 Elliot Zheng MD Work Phone: Start: 05-18-2022 Mri spinal canal lum bar w/o contrast material Zayra Sloan DO Work Phone: Start: 03-26-2022 Basic metabolic pane l calcium total Rg Ernesto NOBLE Work Phone: Start: 01-28-2022 Plain X-ray of bilat eral hands Start: 01-07-2022 Assay of urea nitrog en quantitative Frank Pickering MD Work Phone: Start: 12-10-2021 GLUCOSE, WHOLE BLOOD We miko Pickering MD Work Phone: Start: 12-04-2021 Ecg routine ecg w/le ast 12 lds i&r only Frank Pickering MD Work Phone: Start: 12-04-2021 Culture bacterial quanttative colony count urine Frank Pickering MD Work Phone: Start: 12-04-2021 Blood typing serologic abo Frank Pickering MD Work Phone: Start: 12-04-2021 Gonadotropin chorion ic qualitative Frank Pickering MD Work Phone: Start: 09-18-2021 Comprehensive metabo lic panel Zayra Sloan DO Work Phone: Start: 09-18-2021 Lipid panel Zayra Sloan DO Work Phone: Start: 09-18-2021 PATIENT FASTING? Everton a Humphrey Sloan DO Work Phone: Start: 09-18-2021 Urine albumin quantitative Zayra Sloan DO Work Phone: Start: 03-02-2021 Comprehensive metabo lic panel Zayra Sloan DO Work Phone: Start: 02-19-2021 Microscopic observat ion [Identifier] in Cervix by Cyto stain Frank Pickering MD Work Phone: Start: 12-19-2020 Colonoscopy Zayra mitchell DO Work Phone: Start: 11-21-2020 Iron binding capacity Yaron Sloan DO Work Phone: Start: 05-23-2020 Gonadotropin chorion ic qualitative Sukhdev Leano Capulong Work Phone: Start: 05-23-2020 Gluc bld gluc mntr d ev cleared fda spec home use Sukhdev Leano Capulong Work Phone: Start: 05-23-2020 COVID-19 Jonathon Jau regui Work Phone: Start: 05-09-2020 Fluoroscopy up to 1 hour physician/qhp time Sukhdev Leano Capulong Work Phone: Start: 05-09-2020 Gluc bld gluc mntr d ev cleared fda spec home use Sukhdev Leano Capulong Work Phone: Start: 05-09-2020 COVID-19 Jonathon Jau regui Work Phone: Start: 04-11-2020 Fluoroscopy up to 1 hour physician/qhp time Sukhdev Leano Capulong Work Phone: Start: 04-11-2020 Gonadotropin chorion ic qualitative Sukhdev Leano Capulong Work Phone: Start: 04-11-2020 COVID-19 Jonathon Jau regui Work Phone: Start: 03-07-2020 Fluoroscopy up to 1 hour physician/qhp time Sukhdev Leano Capulong Work Phone: Start: 03-07-2020 Gluc bld gluc mntr d ev cleared fda spec home use Sukhdev Leano Capulong Work Phone: Start: 03-07-2020 Urine test visual color cmprsn emilys Sukhdev Galeano Work Phone: Start: 03-07-2020 COVID-19 Evaristo jay Work Phone: Start: 11-14-2019 Screening mammograph y bi 2-view breast inc cad Zayraveronica Sloan Work Phone: Start: 05-18-2019 Radiologic exam upr gi trc single contrast study Darien Waters MD Work Phone: Start: 05-15-2019 End: 05-15-2019 Gonadotropin chorionic qualitative Darien Waters MD Work Phone: Start: 04-11-2019 NEBULIZER TX INTERMITTENT Ramana Back Work Phone: Start: 03-31-2019 Assay of thyroid stimulating hormone tsh Zayra Weeksharry Work Phone: Start: 03-31-2019 Blood count complete auto&auto difrntl wbc Zayra Yin Mickyharry Work Phone: Start: 03-31-2019 Hemoglobin glycosylated a1c Zayra Humphrey Weeksharry Work Phone: Start: 03-31-2019 Lipid panel Zayra Humphrey Weeksharry Work Phone: Start: 03-31-2019 PATIENT FASTING? Everton Sloan Work Phone: Start: 03-18-2019 Radiologic exam ches t 2 views Selena S Monica Work Phone: Plan of Treatment Date Care Activity Detail Author Start: 12-19-2030 Screening for malignant neoplasm of colon [employer] Start: 02-01-2025 GFR test (Diabetes, CKD 3-4, OR last GFR 15-59) GFR test (Diabetes, CKD 3-4, OR last GFR 15-59) [facility] [employer] Start: 02-01-2025 Hemoglobin A1c measurement A1C test (Diabetic or Prediabetic) [facility] Start: 02-01-2025 Lipid panel Lipids [facility] Start: 12-03-2024 Screening for malignant neoplasm of breast Breast cancer screen [facility] Start: 10-21-2024 GFR test (Diabetes, CKD 3-4, OR last GFR 15-59) GFR test (Diabetes, CKD 3-4, OR last GFR 15-59) [facility] Start: 09-30-2024 Hemoglobin A1c measurement A1C test (Diabetic or Prediabetic) [facility] Start: 06-14-2024 Depression Monitoring Depression Monitoring [facility] [employer] Start: 06-14-2024 Diabetic foot examination Diabetic foot exam [facility] Start: 02-20-2024 Screening for malignant neoplasm of cervix [facility] Start: 02-02-2024 End: 02-02-2024 Patient encounter procedure 02/02/2024 8:00 AM EDT Office Visit [facility] [address] [place] [address] Zayra Sloan DO [address] [place] [id number] 3 month f/u [facility] [place] on above: 3 month f/u Start: 01-30-2024 COVID-19 Vaccine ( season) COVID-19 Vaccine ( season) [facility] Start: 01-05-2024 End: 01-05-2024 Patient encounter procedure 01/05/2024 2:00 PM EDT Office Visit [facility] [address] [place] [address] [address] [place] [id number] Tino Sánchez PA-C [address] [place] [address] [address] [place] [address] Follow-up/ med refill [facility] Comment on above: Follow-up/ med refill Start: 12-30-2023 Influenza vaccination Flu vaccine (#1) [facility] Start: 11-09-2023 End: 11-09-2023 Patient encounter procedure 11/09/2023 12:00 PM EDT Office Visit [facility] [address] [facility] [place] [address] Keila Hemphill MD [address] [facility] [place] [address] [facility] Start: 09-24-2023 GFR test (Diabetes, CKD 3-4, OR last GFR 15-59) GFR test (Diabetes, CKD 3-4, OR last GFR 15-59) [email or web address] Start: 09-09-2023 GFR test (Diabetes, CKD 3-4, OR last GFR 15-59) GFR test (Diabetes, CKD 3-4, OR last GFR 15-59) [facility] Start: 07-27-2023 GFR test (Diabetes, CKD 3-4, OR last GFR 15-59) GFR test (Diabetes, CKD 3-4, OR last GFR 15-59) [facility] Start: 07-02-2023 End: 07-02-2023 Injection single/gas usage meter clerk trigger point 1/2 muscles INJECTION MUSCLE TRIGGER POINT 1 OR 2 MUSCLES Spinal stenosis of lumbar region with neurogenic claudication 07/02/2023 9:25 AM EST [employer] [facility] [place] Start: 05-14-2023 Diabetic retinal exam Diabetic retinal exam [employer] Start: 05-14-2023 Glaucoma screening Diabetic retinal exam [email or web address] Start: 05-13-2023 Influenza vaccination [facility] Comment on above: Postponed from 12/29/2021 (Patient Refus ed) Postponed from 12/29 (Patient Refused) Start: 03-26-2023 GFR test (Diabetes, CKD 3-4, OR last GFR 15-59) GFR test (Diabetes, CKD 3-4, OR last GFR 15-59) [facility] Start: 02-11-2023 End: 02-11-2023 Arthrodesis sacroiliac joint percutaneous ARTHRODESIS SACROILIAC JOINT MINIMALLY INVASIVE W/ TRANSFIXING DEVICE Sacroiliitis 02/11/2023 11:58 AM EDT [facility] Start: 02-11-2023 End: 02-11-2023 Fluoroscopy up to 1 hour physician/qhp time FLUOROSCOPY IN OR Sacroiliitis 02/11/2023 11:58 AM EDT [facility] OR Start: 01-29-2023 COVID-19 VACCINE ( season) COVID-19 VACCINE ( season) [facility] Start: 01-29-2023 Influenza vaccination [facility] Start: 01-21-2023 Hemoglobin A1c measurement A1C test (Diabetic or Prediabetic) [facility] Start: 12-15-2022 End: 12-15-2022 Patient encounter procedure 12/15/2022 10:30 AM EDT Office Visit [facility] [address] [facility] [place] [address] Keila Hemphill MD [address] [place] [address] [place] [address] [facility] Start: 10-15-2022 End: 10-15-2022 Patient encounter procedure 10/15/2022 Office Visit Gynecologic Oncology Tino Sánchez PA-C [address] [place] [address] [place] [address] [facility] Start: 09-25-2022 End: 09-25-2022 Patient encounter procedure 09/25/2022 Office Visit Orthopaedics Keila Hemphill MD [address] [place] [address] [place] [address] [facility] Start: 09-21-2022 End: 09-21-2022 Patient encounter procedure 09/21/2022 Office Visit Gynecologic Oncology Tino Sánchez PA-C [address] [place] [place] [address] [facility] Start: 09-21-2022 End: 09-21-2022 Patient encounter procedure 09/21/2022 Office Visit Orthopaedics Keila Hemphill MD [address] [facility] [place] [address] [facility] Start: 09-18-2022 Creatinine measurement Creatinine [facility] Start: 09-18-2022 Depression Monitoring Depression Monitoring [facility] Start: 09-18-2022 Hemoglobin A1c measurement A1C test (Diabetic or Prediabetic) [facility] Start: 09-18-2022 Lipid panel Lipids [facility] Start: 09-18-2022 Potassium [Moles/volume] in Serum or Plasma Potassium [facility] Start: 09-18-2022 Urine screening for protein [facility] Start: 09-08-2022 End: 09-08-2022 Admission to same day surgery center 09/08/2022 Surgery IP Unit Clemencia Campos MD [address] [facility] [address] [place] [address] [facility] LAPAROSCOPIC TOTAL HYSTERECTOMY, BSO, POSSIBLE EXPLORATORY LAPAROTOMY, OTHER NECESSARY PROCEDURES [facility] OR Comment on above: XI ROBOTIC LAPAROSCOPIC TOTAL HYSTERECTO MY, BSO, POSSIBLE EXPLORATORY LAPAROTOMY, OTHER NECESSARY PROCEDURES Start: 09-08-2022 End: 09-08-2022 Laps total hysterect 250 gm/< w/rmvl tube/ovary HYSTERECTOMY ABDOMINAL LAPAROSCOPIC ROBOTIC Post endometrial ablation syndrome Pelvic pain in female 09/08/2022 7:30 AM EDT [facility] Start: 09-08-2022 Subsequent hospital visit by physician 09/08/2022 Hospital Encounter IP Unit Clemencia Campos MD [address] [facility] [address] [place] [address] [facility] Start: 08-19-2022 End: 08-19-2022 Patient encounter procedure 08/19/2022 Appointment Physical Therapy Sarah Tony [facility] Physical Therapy Start: 08-17-2022 End: 08-17-2022 Patient encounter procedure 08/17/2022 Appointment Physical Therapy Dayanna Springer, PT [facility] Physical Therapy Start: 08-13-2022 End: 08-13-2022 Patient encounter procedure 08/13/2022 Appointment Physical Therapy Sarah Tony [facility] Start: 08-11-2022 End: 08-11-2022 Patient encounter procedure 08/11/2022 Appointment Physical Therapy Sarah Tony [facility] Start: 08-06-2022 End: 08-06-2022 Patient encounter procedure 08/06/2022 Appointment Physical Therapy Sarah Tony [facility] Start: 08-05-2022 End: 08-05-2022 Patient encounter procedure 08/05/2022 Office Visit Gynecologic Oncology Clemencia Campos MD [address] [facility] [address] [place] [address] [facility] Start: 08-04-2022 End: 08-04-2022 Patient encounter procedure 08/04/2022 Appointment Physical Therapy Sarah Tony [facility] Start: 07-31-2022 End: 07-31-2022 Patient encounter procedure 07/31/2022 Appointment Physical Therapy Dayanna Springer, PT [facility] Start: 07-30-2022 End: 07-30-2022 Patient encounter procedure [facility] Start: 07-28-2022 End: 07-28-2022 Patient encounter procedure 07/28/2022 Appointment Physical Therapy Dayanna Springer, PT [facility] Start: 07-22-2022 End: 07-22-2022 Patient encounter procedure 07/22/2022 Appointment Physical Therapy Dayanna Springer, PT [facility] Start: 04-13-2022 Creatinine measurement Creatinine monitoring [facility] Start: 04-13-2022 Potassium monitoring Potassium monitoring [facility] Start: 04-07-2022 End: 04-07-2022 Admission to same day surgery center 04/07/2022 Surgery General Surgery Goldie Ace I, DO [address] [facility] [address] [place] [address] HERNIA UMBILICAL REPAIR LAPAROSCOPIC ROBOTIC [facility] [place] Comment on above: HERNIA UMBILICAL REPAIR LAPAROSCOPIC RAINA OTIC Start: 04-07-2022 End: 04-07-2022 Rpr umbilical hrna 5 yrs/> [facility] Start: 04-07-2022 Subsequent hospital visit by physician TONG And[facility] [place] Comment on above: Pre-op testing (Primary Dx) Start: 04-02-2022 End: 04-02-2022 Patient encounter procedure 04/02/2022 Appointment Physical Therapy Dayanna Springer, PT [facility] Start: 04-02-2022 Diabetic foot examination Diabetic foot exam [facility] Start: 04-02-2022 Hemoglobin A1c measurement A1C test (Diabetic or Prediabetic) [facility] Start: 04-02-2022 Influenza vaccination [facility] Comment on above: Postponed from 01/29/2021 (Patient Refus ed) Postponed from 01/29 (Patient Refused) Start: 03-31-2022 End: 03-31-2022 Patient encounter procedure 03/31/2022 Appointment Physical Therapy Dayanna Springer, PT [facility] Start: 03-27-2022 End: 03-27-2022 Patient encounter procedure 03/27/2022 Appointment Physical Therapy Jenn Carrasco S [facility] Start: 03-26-2022 End: 03-26-2022 Patient encounter procedure 03/26/2022 Appointment Physical Therapy Jenn Carrasco S [facility] Start: 03-24-2022 End: 03-24-2022 Patient encounter procedure 03/24/2022 Appointment Physical Therapy Dayanna Springer PT [facility] Start: 03-19-2022 End: 03-19-2022 Patient encounter procedure 03/19/2022 Appointment Physical Therapy Jenn Carrasco S [facility] Start: 03-17-2022 End: 03-17-2022 Patient encounter procedure 03/17/2022 Appointment Physical Therapy Dayanna Springer, PT [facility] Start: 03-12-2022 End: 03-12-2022 Patient encounter procedure 03/12/2022 Appointment Physical Therapy Jenn Carrasco S [facility] Start: 03-11-2022 End: 03-11-2022 Patient encounter procedure 03/11/2022 Office Visit General Surgery Goldie Ace I, DO [facility] [address] [place] [address] [facility] GENERAL SURGERY Part [facility] Start: 03-10-2022 End: 03-10-2022 Patient encounter procedure 03/10/2022 Appointment Physical Therapy Hanna Lawler PTA [facility] Start: 03-05-2022 End: 03-05-2022 Patient encounter procedure 03/05/2022 Appointment Physical Therapy Jenn Carrasco [facility] Start: 03-05-2022 Subsequent hospital visit by physician 03/05/2022 Hospital Encounter Physical Therapy Jenn Carrasco [facility] Start: 03-03-2022 End: 03-03-2022 Patient encounter procedure 03/03/2022 Appointment Physical Therapy Dayanna Springer PT [facility] Start: 03-02-2022 Creatinine measurement Creatinine monitoring [facility] Work Phone: Start: 03-02-2022 Potassium monitoring Potassium monitoring [facility] Work Phone: Start: 02-26-2022 End: 02-26-2022 Patient encounter procedure 02/26/2022 Appointment Physical Therapy Jenn Carrasco [facility] Start: 01-29-2022 Influenza vaccination [facility] Start: 01-28-2022 Lipid screen Lipid screen [facility] [place], [place] Start: 01-28-2022 [facility] Work Phone: Start: 12-29-2021 Influenza vaccination Flu vaccine (#1) [facility] Start: 12-24-2021 End: 12-24-2021 Patient encounter procedure 12/24/2021 Office Visit Obstetrics and Gynecology Frank Pickering MD [address] [place] [address] [address] [place] [address] [facility] OBSTETRICS & GYNECOLOGY [facility] Start: 12-10-2021 End: 12-10-2021 Admission to same day surgery center 12/10/2021 Surgery IP Unit Frank Pickering MD [address] [place] [address] Dr [address] [place], [place] [id number] DILATATION AND CURETTAGE HYSTEROSCOPY CAUTERY ABLATION-NOVASURE [facility] OR Comment on above: DILATATION AND CURETTAGE HYSTEROSCOPY CA UTERY ABLATION-NOVASURE Start: 12-10-2021 End: 12-10-2021 Anesthesia consultation 12/10/2021 Anesthesia Event IP Unit Brittany Lucas, FOOD COURT TEAM MEMBER - CARPET TILE LAYER [address] [facility] [address] [place] [address] [facility] Start: 12-10-2021 End: 12-10-2021 Hysteroscopy endometrial ablation [facility] Start: 12-10-2021 Subsequent hospital visit by physician 12/10/2021 Hospital Encounter IP Unit Frank Pickering MD [address] [facility] [address] [place] [address] [facility] Start: 12-06-2021 Screening for malignant neoplasm of colon Colon [facility] Phone: Start: 10-29-2021 End: 10-29-2021 Patient encounter procedure 10/29/2021 Office Visit Obstetrics and Gynecology Veena Mary, FOOD COURT TEAM MEMBER - CNM [address] [facility] [address] [facility] [place] [address] [facility] OBSTETRICS & GYNECOLOGY [facility] Start: 10-10-2021 Diabetic retinal exam Diabetic retinal exam [facility] Start: 10-07-2021 Hemoglobin A1c measurement A1C test (Diabetic or Prediabetic) [facility] Phone: Start: 07-08-2021 Influenza vaccination Flu vaccine (Season Ended) [facility] Phone: Comment on above: Postponed from 01/29/2021 (Patient Refus ed) Start: 06-28-2021 Creatinine measurement Creatinine monitoring [facility] Phone: Start: 06-28-2021 Diabetic microalbuminuria test Diabetic microalbuminuria test [facility] Phone: Start: 06-28-2021 Lipid panel [facility] Start: 06-28-2021 Potassium monitoring Potassium monitoring [facility] Phone: Start: 06-28-2021 Urine screening for protein Diabetic microalbuminuria test [facility] Start: 06-20-2021 End: 06-20-2021 Patient encounter procedure 06/20/2021 Office Visit Family Medicine Zayra Sloan, DO [address] [place] [address] [facility] Start: 01-29-2021 Influenza vaccination Flu vaccine (#1) [facility] Phone: Start: 11-13-2020 Screening for malignant neoplasm of breast MAMMOGRAM SCREENING [facility] Start: 09-10-2020 Diabetic foot examination Diabetic foot exam [place], [place] Start: 09-10-2020 HbA1c (Bld) [Mass fraction] A1C test (Diabetic or Prediabetic) [place] Start: 2020 Screening for malignant neoplasm of colon [facility] Start: 06-04-2020 End: 06-04-2020 Office Visit 06/04/2020 Office Visit Family Zayra Reid DO [address] [place] [address] [facility] Start: 05-03-2020 End: 05-03-2020 Office Visit 05/03/2020 Office Visit Pain Management Sukhdev Galeano MD [facility] [address] [place] [address] [facility] Start: 04-11-2020 End: 04-11-2020 Hospital Encounter [facility] [place] Comment on above: GENICULAR NERVE BLOCK BILATERAL KNEES Start: 04-11-2020 End: 04-11-2020 Appointment 04/11/2020 Appointment Pre-Admission Testing [facility] PRE ADMIT Start: 03-31-2020 A1C test (Diabetic or Prediabetic) A1C test (Diabetic or Prediabetic) [place] Start: 03-31-2020 Lipid panel Lipid screen [place] Start: 03-31-2020 Lipid screen Lipid screen [place] Start: 03-22-2020 End: 03-22-2020 Office Visit 03/22/2020 Office Visit Pain Management Sukhdev Galeano MD [address] [place] [address] [phone] [facility] Medicine [facility] Rehabilitation Start: 01-30-2020 Influenza vaccination [place] Start: 12-11-2019 End: 12-11-2019 Office Visit 12/11/2019 Office Visit Family Medicine Zayra Sloan, DO [address] [place] [address] [facility] [place] Start: 05-29-2019 End: 05-29-2019 Patient encounter procedure 05/29/2019 Office Visit General Surgery Darien Waters MD [address] [place] [address] [facility] Patient Portal Representative - [place] Start: 05-18-2019 End: 05-18-2019 Patient encounter procedure 05/18/2019 Appointment Radiology Radiologist, [facility] Start: 01-29-2019 Influenza vaccination Flu vaccine (#1) [place] Start: 09-22-2018 Cervical cancer screen Cervical cancer screen [place] Start: 09-22-2018 Screening for malignant neoplasm of cervix [place] Start: 08-26-2018 A1C test (Diabetic or Prediabetic) A1C test (Diabetic or Prediabetic) [place] Start: 08-21-2018 Creatinine measurement Creatinine monitoring [place] Start: 08-21-2018 Creatinine monitoring Creatinine monitoring [place], [place] Start: 08-21-2018 Potassium monitoring Potassium monitoring [place] Start: 2015 Lipid panel LIPID SCREENING [facility] Start: 2015 Screening for malignant neoplasm of breast MAMMOGRAM SCREENING DISCUSSION [facility] Start: 2005 Screening for malignant neoplasm of cervix [facility] Start: 1996 Screening for malignant neoplasm of cervix [facility] Start: 1994 DTaP/Tdap/Td vaccine (1 - Tdap) DTaP/Tdap/Td vaccine (1 - Tdap) [facility] Start: 1994 Hepatitis B vaccination HEP B VACCINE (1 of 3 - 19+ 3-dose series) [facility] Start: 1994 Hepatitis B vaccine (1 of 3 - 19+ 3-dose series) Hepatitis B vaccine (1 of 3 - 19+ 3-dose series) [place] [facility] Start: 1994 Hepatitis B Vaccine (1 of 3 - Risk 3-dose series) Hepatitis B Vaccine (1 of 3 - Risk 3-dose series) [facility] Start: 1994 Third diphtheria, tetanus and acellular pertussis (DTaP) vaccination TDAP (ADULT) [facility] Start: 1993 Diabetic microalbuminuria test Diabetic microalbuminuria test [place] Start: 1990 HIV screening HIV SCREENING DISCUSSION [facility] Start: 1987 COVID-19 Vaccine (1) COVID-19 Vaccine (1) [facility] Work Phone: Start: 1987 Depression Monitoring Depression Monitoring [facility] Start: 1986 DTaP/Tdap/Td vaccine (1 - Tdap) DTaP/Tdap/Td vaccine (1 - Tdap) [place] Start: 1985 [object Object] Diabetic foot exam [place] Start: 1985 Diabetic retinal exam Diabetic retinal exam [place] Start: 1981 Pneumococcal 0-64 years Vaccine (1 - PCV) Pneumococcal 0-64 years Vaccine (1 - PCV) [facility] Start: 1981 Pneumococcal 0-64 years Vaccine (1 of 1 - PPSV23) Pneumococcal 0-64 years Vaccine (1 of 1 - PPSV23) [place] Start: 1981 Pneumococcal 0-64 years Vaccine (1 of 2 - PCV) Pneumococcal 0-64 years Vaccine (1 of 2 - PCV) [facility] Start: 1981 Pneumococcal 0-64 years Vaccine (1 of 2 - PPSV23) Pneumococcal 0-64 years Vaccine (1 of 2 - PPSV23) [facility] Start: 1980 COVID-19 Vaccine (1) COVID-19 Vaccine (1) [facility] Start: 1975 COVID-19 Vaccine (#1) COVID-19 Vaccine (#1) [facility] Start: 1975 Hepatitis B vaccination HEP B VACCINE (1 of 3 - 3-dose series) [facility] Start: 1975 Hepatitis B vaccine (1 of 3 - 3-dose series) Hepatitis B vaccine (1 of 3 - 3-dose series) [facility] Start: 1975 Hepatitis C screening [facility] Start: 1975 Tetanus vaccination TETANUS [facility] End: 12-04-2021 Blood Bank Specimen [facility] [employer] Phone: Comment on above: Once for 1 Occurrences starting 12/05/19 until 12/04/2021 End: 05-09-2020 Blood glucose - POCT Blood glucose - POCT Point of Care Testing Routine One Time for 1 Occurrences starting 05/09/2020 until 05/09/2020 [place] Comment on above: One Time for 1 Occurrences starting 04/30 until 05/09/2020 End: 05-23-2020 Blood glucose - POCT Blood glucose - POCT Point of Care Testing Routine One Time for 1 Occurrences starting 05/23/2020 until 05/23/2020 [place] Comment on above: One Time for 1 Occurrences starting 05/01 until 05/23/2020 End: 07-30-2022 [facility]: Comment on above: 1 Occurrences starting 07/30/2022 until 07/30/2022 End: 07-30-2022 [facility] Phone: Comment on above: 1 Occurrences starting 07/30/2022 until 07/30/2022 Continuous pulse oximetry Pulse oximetry, continuous Respiratory Care Routine Every 4hr until discontinued starting 12/10/2021 [employer] Phone: Comment on above: Every 4hr until discontinued starting End: 02-04-2021 COVID-19 COVID-19 Lab Routine Suspected COVID-19 virus infection 1 Occurrences starting 02/04/2021 until 02/04/2021 [facility] Phone: Comment on above: 1 Occurrences starting 02/04/2021 until 02/04/2021 COVID-19 COVID-19 Lab Rou j[place] Suspected COVID-19 virus infection 02/04/2021 11:55 AM EDT [facility] Phone: End: 04-02-2020 COVID-19 Ambulatory COVID-19 Ambulatory Lab Routine Viral URI with cough 1 Occurrences starting 04/02/2020 until 04/02/2020 [facility] [place] Comment on above: 1 Occurrences starting 04/02/2020 until 04/02/2020 COVID-19 Ambulatory COVID-19 Amb ulatory Lab Routine Viral URI with cough 04/02/2020 1:26 PM EST [place] End: 03-17-2024 DBT Breast - bilateral screening [employer] Comment on above: 1 Occurrences starting 03/17/2024 until 03/17/2024 End: 05-23-2020 FL LESS THAN 1 HOUR FL LESS THAN 1 HOUR Imaging Routine Once for 1 Occurrences starting 05/23/2020 until 05/23/2020 [facility] [place] Comment on above: Once for 1 Occurrences starting 05/23/20 20 until 05/23/2020 End: 05-15-2019 FL UGI FL UGI Imaging Routine Once for 1 Occurrences starting 05/15/2019 until 05/15/2019 [facility] Phone: Comment on above: Once for 1 Occurrences starting 05/15/20 19 until 05/15/2019 End: 12-10-2021 Glucose [Mass/volume] in Serum or Plasma POCT Glucose Point of Care Testing Routine One Time for 1 Occurrences starting 12/10/2021 until 12/10/2021 [employer] Work Phone: Comment on above: One Time for 1 Occurrences starting 11/28 until 12/10/2021 Glucose [Mass/volume ] in Serum or Plasma [employer] Work Phone: Comment on above: 4X Daily (AC & HS) until discontinued st arting 09/08/2022 As Needed until disc ontinued starting 09/08/2022 H. PYLORI DETECTION H. PYLORI DE TECTION Lab Routine ONE TIME for 1 Occurrences starting 05/15/2019 [facility] Phone: Comment on above: ONE TIME for 1 Occurrences starting 04/30 Initiate Oxygen Ther apy Protocol Initiate Oxygen Therapy Protocol Respiratory Care Routine Daily until discontinued starting 05/15/2019 [facility] Phone: Comment on above: Daily until discontinued starting 2018 End: 12-10-2021 INITIATE PACU OXYGEN THERAPY PROTOCOL Initiate PACU Oxygen Therapy Protocol Respiratory Care Routine Continuous until discontinued starting 12/10/2021 [email or web address] Comment on above: Continuous until discontinued starting 0 12/10/2021 Nuclear Ab [Titer] i n Serum [facility] Work Phone: Oxygen therapy [Mini mum Data Set] [employer] Comment on above: Daily until discontinued starting 2019 Daily until disconti nued starting 05/23/2020 Oxygen therapy [Mini mum Data Set] Initiate Oxygen Therapy Protocol Respiratory Care Routine As Needed until discontinued starting 12/10/2021 [employer] Work Phone: Comment on above: As Needed until discontinued starting Oxygen therapy [Mini mum Data Set] Initiate Oxygen Therapy Protocol Respiratory Care Routine As Needed until discontinued starting 09/08/2022 [employer] Work Phone: Comment on above: As Needed until discontinued starting End: 05-23-2020 , urine , urine Lab Routine One Time for 1 Occurrences starting 05/23/2020 until 05/23/2020 [employer] Comment on above: One Time for 1 Occurrences starting 05/01 until 05/23/2020 End: 12-10-2021 , Urine , Urine Lab Routine One Time for 1 Occurrences starting 12/10/2021 until 12/10/2021 [employer] Phone: Comment on above: One Time for 1 Occurrences starting 11/28 until 12/10/2021 End: 02-11-2023 RF Unspecified body region Views during surgery [facility] Comment on above: One Time for 1 Occurrences starting 01/29 until 02/11/2023 End: 07-02-2023 RF Unspecified body region Views during surgery [facility] Comment on above: One Time for 1 Occurrences starting 07/2023 until 07/02/2023 Spirometry panel Incentive rayshawn metry Respiratory Care Routine Every 2hr while awake until discontinued starting 09/08/2022 [employer] Phone: Comment on above: Every 2hr while awake until discontinued starting 09/08/2022 Surgical Pathology Surgical Path ology Lab Routine ONE TIME for 1 Occurrences starting 05/15/2019 [facility] Phone: Comment on above: ONE TIME for 1 Occurrences starting 04/30 Surgical Pathology Surgical Path ology Lab Routine Dysmenorrhea Release Upon Ordering for 1 Occurrences starting 12/10/2021 [employer] Phone: Comment on above: Release Upon Ordering for 1 Occurrences starting 12/10/2021 Surgical Pathology Surgical Path ology Lab Routine Post endometrial ablation syndrome Pelvic pain in female Release Upon Ordering for 1 Occurrences starting 09/08/2022 [employer] Phone: Comment on above: Release Upon Ordering for 1 Occurrences starting 09/08/2022 End: 09-08-2022 SURGICAL PATHOLOGY REPORT SURGICAL PATHOLOGY REPORT Lab Routine Once for 1 Occurrences starting 09/08/2022 until 09/08/2022 [employer] [facility] Phone: Comment on above: Once for 1 Occurrences starting 09/09/19 23 until 09/08/2022 TYPE AND SCREEN TYPE AND SCREEN Blood Bank Routine Pre-op testing 12/04/2021 10:01 AM EDT [facility] Work Phone: TYPE AND SCREEN TYPE AND SCREEN Blood Bank Stat [employer] Label print 09/08/2022 6:58 AM EDT [facility] Work Phone: XR Lumbar spine View s W right bending and W left bending XR SPINE LUMBAR W BENDING Imaging Routine Spinal stenosis of lumbar region with neurogenic claudication 05/03/2023 12:01 PM EST [facility] Work Phone: Immunizations Immunization Date Immunization Notes Care Provider Fa [facility] 04-13-2017 influenza, seasonal, injectable, preservative free [facility] Work Phone: 04-13-2017 influenza virus vaccine, unspecified formulation Keila Hemphill MD Work Phone: [facility] 04-15-2015 influenza virus vaccine, unspecified formulation [address], [place] 01-08-2014 influenza virus vaccine, unspecified formulation [address], [place] 01-08-2014 influenza virus vaccine, whole virus [facility] 02-16-2013 influenza virus vaccine, unspecified formulation [address] 02-16-2013 influenza virus vaccine, whole virus [facility] [place] 12-28-2011 influenza virus vaccine, unspecified formulation [address] Payers Date Payer Category Payer Unknown [id number] 2021 Unknown [phone] [id number] .7.3.272644.315 2020 Unknown [id number]. 1.13.172.2 .7.3.806739.315 2019 Unknown BCBS BCBS OUT OF STATE xxxxxxxxxxxx 2019-Present [address] [place] [address] xxxxxxxxxxxx 1.2.840.214648.1.13.239.2 .7.3.060054.315 2019 Unknown BCBS BCBS OUT OF STATE [id number] 2019-Present [address] [place] [address] [id number] 1.2.840.846282.1.13.239.2 .7.3.629369.315 2016 Private Health Insurance [facility] PL[facility] xxxxxxxxx 2016-Present [phone] [address] [place] [address] xxxxxxxxx 1.2.840.413488.1.13.239.2 .7.3.946411.315 1975 Unknown [id number] 2.16.840.1.585826.3.579.2 .593 1975 Unknown [id number] 2.16.840.1.594152.3.579.2 .593 1975 Unknown [id number] 2.16.840.1.453457.3.579.2 .593 1975 Unknown [id number] 2.16.840.1.263366.3.579.2 .593 1975 Unknown [id number] 2.16.840.1.227164.3.579.2 .593 1975 Unknown [id number] 2.16.840.1.781513.3.579.2 .593 1975 Unknown [id number] 2.16.840.1.537280.3.579.2 .983 1975 Unknown [id number] 2.16.840.1.659513.3.579.2 .983 1975 Unknown [id number] 2.16.840.1.980886.3.579.2 .175 1975 Unknown [id number] 2.16.840.1.814351.3.579.2 .983 1975 Unknown [id number] 2.16.840.1.663535.3.579.2 .983 1975 Unknown [id number] 2.16.840.1.772751.3.579.2 .983 1975 Unknown [id number] 2.16.840.1.005983.3.579.2 .983 1975 Unknown [id number] 2.16.840.1.842485.3.579.2 .983 1975 Unknown [id number] 2.16.840.1.186762.3.579.2 .983 1975 Unknown [id number] 2.16.840.1.351789.3.579.2 .98 1975 Unknown [id number] 2.16.840.1.177053.3.579.2 .983 1975 Unknown [id number] 2.16.840.1.799923.3.579.2 .98 1975 Unknown [id number] 2.16.840.1.103580.3.579.2 .983 1975 Unknown [id number] 2.16.840.1.067519.3.579.2 .1975 Unknown [id number] 2.16.840.1.220497.3.579.2 .983 1975 Unknown [id number] 2.16.840.1.585271.3.579.2 .983 1975 Unknown [id number] 2.16.840.1.263205.3.579.2 .983 1975 Unknown [id number] 2.16.840.1.143141.3.579.2 .983 1975 Unknown [id number] 2.16.840.1.642103.3.579.2 .983 1975 Unknown [id number] 2.16.840.1.968149.3.579.2 .98 1975 Unknown [id number] 2.16.840.1.802088.3.579.2 .983 1975 Unknown [id number] 2.16.840.1.992744.3.579.2 .983 1975 Unknown [id number] 2.16.840.1.675584.3.579.2 .983 1975 Unknown [id number] 2.16.840.1.608024.3.579.2 .983 1975 Unknown [id number] 2.16.840.1.443980.3.579.2 .983 1975 Unknown [id number] 2.16.840.1.862599.3.579.2 .983 1975 Unknown [id number] 2.16.840.1.823067.3.579.2 .983 1975 Unknown [id number] 2.16.840.1.964765.3.579.2 .983 1975 Unknown [id number] 2.16.840.1.287095.3.579.2 .983 1975 Unknown [id number] 2.16.840.1.310728.3.579.2 .983 1975 Unknown [id number] 2.16.840.1.473254.3.579.2 .93 1975 Unknown [id number] 2.16.840.1.363178.3.579.2 .93 1975 Unknown [id number] 2.16.840.1.497614.3.579.2 .93 1975 Unknown [id number] 2.16.840.1.166394.3.579.2 .174 1975 Unknown [id number] 2.16.840.1.934426.3.579.2 .174 1975 Unknown [id number] 2.16.840.1.716867.3.579.2 .174 1975 Unknown [id number] 2.16.840.1.507071.3.579.2 .174 1975 Unknown [id number] 2.16.840.1.112788.3.579.2 .174 1975 Unknown [id number] 2.16.840.1.536697.3.579.2 .174 1975 Unknown [id number] 2.16.840.1.328131.3.579.2 .196 1975 Unknown [id number] 2.16.840.1.643418.3.579.2 .196 1975 Unknown [id number] 2.16.840.1.927624.3.579.2 .173 1975 Unknown [id number] 2.16.840.1.949565.3.579.2 .173 1975 Unknown [id number] 2.16.840.1.210396.3.579.2 .173 1959 Unknown [id number] 1.2.840.645091.1.13.239.2 .7.3.734274.315 Self-pay Self Pay [id number] Social History Date Type Detail Facility Start: 03-18-2019 End: 12-24-2021 Tobacco smoking status NHIS Never smoker [employer] Start: 03-18-2019 End: 12-24-2023 Alcohol intake No [facility] [employer] Start: 1975 Sex Assigned At Not on file [place] Start: 09-11-2019 End: 03-17-2024 Alcohol intake Current non-drinker of alcohol (finding) [place] Start: 12-20-2019 End: 12-24-2021 Tobacco use and exposure [facility] used [facility] [place] Start: 11-24-2021 End: 09-07-2022 Exposure to SARS-CoV-2 (event) Not sure [place] Start: 06-04-2020 End: 06-20-2021 History SDOH Financial 5 [employer] Work Phone: Start: 06-04-2020 End: 06-20-2021 History SDOH Food Worry 1 [employer] Work Phone: Start: 1975 Sex Assigned At Female F [facility] Start: 06-23-2022 End: 08-02-2023 Alcohol intake Ex-drinker (finding) [facility] Start: 07-27-2022 History SDOH Alcohol Std Drinks 0 [employer] Work Phone: Start: 10-23-2022 End: 12-24-2023 History of Social function [employer] Has the [employer], or Whatever threatened to shut off services in your home in past 12Mo No [employer] How often to you hav e a drink containing alcohol? Never [employer] How many standard dr inks containing alcohol do you have on a typical day? Patient does not drink [employer] (I/We) worried wheth er (my/our) food would run out before (I/we) got money to buy more. Never true [employer] Medical Equipment Procedure Code Equipment Code Equipment Origin al Text Equipment Identifier Dates Test blood sugar once daily and as needed [id number] Start: 03-31-2019 Test blood sugar once daily and as needed [id number] Start: 03-31-2019 Test sugar twice daily [id number] Start: 06-08-2019 End: 12-20-2019 Test blood sugar once daily and as needed [id number] Start: 12-08-2019 End: 12-20-2019 Test BID [id number] Start: 12-28-2019 USE 1 TO CHECK GLUCOSE ONCE DAILY AND IF NEEDED [id number] Start: 12-29-2019 USE 1 TO CHECK GLUCOSE ONCE DAILY AND IF NEEDED [id number] Start: 04-01-2020 USE DIRECTED TWICE A DAY [id number] Start: 07-03-2020 Check glucose BID [id number] Start: 06-04-2020 USE DIRECTED TWICE A DAY [id number] Start: 08-18-2021 1 each by Does n ot apply route daily [id number] Start: 09-04-2021 Zena Yin Dia3.2in Cir W/ Strp [employer] - [id number] Start: 04-07-2022 Comment on above: Description: Size an d expiration date confirmed with surgeon [employer] [id number] Start: 02-11-2023 [employer] [id number] Start: 02-11-2023 [employer] [id number] Start: 02-11-2023 Set Screw 5.5-6. 0 - [id number] Start: 10-19-2023 Screw Poly Solid 7.5x50 - [id number] Start: 10-19-2023 Screw Poly Solid 7.5x45 - [id number] Start: 10-19-2023 Konrad Ti Prebent 5.5x40 - [id number] Start: 10-19-2023 Goals Date Patient Goal Desired Activity /State Personal health goal Comment on above: Formatting of this n ote might be different from the original. Therapy Problem List: SI fusion pre-op session needed today. Pain/spasm in the left LB areas. Decreased AROM at the low back with pain Difficulty with change of positions and sleeping on the left side. Static standing bothersome for any length of time. Gait/steps usage is effected brook over the left lower extremity Forward flexed hip and low back posture in standing. Limited in house work/leisure/ADL activity. In and out of car reported painful and slowed. So is in out bed. Therapy Goals: Pre-op SI fusion education and training. Short term: Pt will demonstrate independence and understanding with HEP and safety precautions to prepare for surgery. (Met today) Pt will demonstrate competence with gait/step/curb training (as appropriate) and bed mobility to prepare for safety after surgery. (Met today) Care Home Goals: Independent core exercises for assisted use to prevent reoccurrence. Return to normal activity of house work/leisure/ADLs with post op therapy as ordered by surgeon if needed. Personal health goal Comment on above: Formatting of this n ote might be different from the original. 04/23/23 Short Term Goals: 3 weeks Tolerate therapy well with reported improvements from patient. 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 Decrease pain of back to <5/10 & no R radicular pain. Improve functional AROM trunk & hips to allow for I with ADLs & IADLs. Improve MMT strength of R knee to 5/5 & good TA & DL bridge without increased pain. Improve gait without AD & including stairs reciprocally with handrail to enter/exit her home safely. Improve function evident by improved walking tolerance >15 min; Oswestry <45%. Clinical Notes 05-15-2019 to 02-14-2024 Jenny Gracia - 08/02/2023 10:30 AM ESTAndmagaly Prater - 08/02/2023 10:30 AM Adalberto Hemphill MD - 08/02/2023 10:30 AM ESTPatient InstructionsOp Note - Elliot Zheng MD - 07/02/2023 10:15 AM EST Note Date & Type Note Facility 02-14-2024 Note I was asked to see t he patient by Dr Jain due to the patients BMI being over 40. I spoke to the patient and her spouse regarding options for weight loss. I informed them that we could refer her to pain management for injections and try physical therapy. They stated the patient had tried injections in the past and they did not help. I stated that unfortunately due to the hospitals protocol the patient cannot have surgery until her BMI is 40 and below. I offered to refer her to an client support professional for a art consultant consult. Patient did not show any interest or say yes or no. I stated I was sorry they were given the impression that we could schedule her for surgery as they drove an hour and a half. I gave my contact information if she decides she would like a referral to pain management, physical therapy or endocrinology. I also stated to please contact me with any questions or concerns. I informed them when she is able to lose the weight and would like to check to ensure her BMI is 40 or below I will be happy to see her as soon as possible. At which time I will get her an appointment with Dr Jain to schedule surgery. They had no other questions or concerns. [facility] 02-14-2024 Note Orthopaedic Surgery Subjective Follow-up, Pain, and New Patient of the Right Knee (surgical evaluation - bone on bone, when she walks feels like her knees are crunching.) 02/14/24 Sarah Harris is a 48 y.o. female who has been referred by Alejandro Viveros PA-C, presenting for bilateral knee pain, right worse than left. Her knee pain has been present for years and worse with activity such as walking. She has tried CSI, gel injections, and PT in the past. Her last injections only gave her relief for about 2 weeks. Patient is notably morbidly obese and she reports losing about 70 pounds in the past year. Patient continues to be struggling with her bilateral knee pain right side worse than left side. Patient believes that the left side also bothers her to a lesser extent. She has occasional instability of the knee joint along with difficulty walking for long distances. Denies any fever, chills or rigors or any breathlessness. Patient has a complex history of HTN, DM (last Hgb A1c 6.6), class III obesity with a BMI of almost 55 kg/m??? today, fibromyalgia, lumbar stenosis s/p decompression and fusion, peripheral venous insufficiency, peripheral vascular disease, prior venous ulcer left lower extremity s/p skin grafting. Patient History History reviewed. No pertinent surgical history. Past Medical History: Diagnosis Date Diabetes mellitus ([facility]) Hypertension Objective General: Body mass index is 54.72 kg/m???. No acute distress, comfortable Respiratory: Unlabored breathing with normal rate, no cough Cardiovascular: Warm well perfused extremities Psych: Appropriate mood behavior Right Knee: Compared with the left side bilateral varus deformity noted, tenderness over the medial as well as lateral joint line noted, positive patellofemoral crepitus noted, positive lateral maltracking patella noted right side worse than left side, varicose veins noted in both lower extremities, varicosity of the left side with previous ulcers that have healed with secondary tension noted with skin grafting. Trophic changes noted in the left as well as the right morris suggestive of peripheral vascular disease. Patient walks with antalgia with possible mild pain was noted with weakness in the hip abductors. Inspection- no ecchymosis, no edema, no effusion, varus deformity Tender to palpation over medial joint line, otherwise non-tender Knee ROM: Extension- 0??? Flexion- 100??? Strength: Knee Flexion 5/5 Knee Extension 5/5 Ankle Dorsiflexion 5/5 Ankle Plantarflexion 5/5 Sensation: intact over superficial peroneal, deep peroneal and tibial nerve distributions Stability: Stable to varus and valgus stress Stable to anterior and posterior thrust Gait: heel toe pattern, varus alignment Imaging X-ray of the right knee in office today 02/14/2024: These were seen by myself and interpreted independently show the patient has right knee joint severe osteoarthritic changes, particularly in the medial compartment with varus deformity. Imaging personally reviewed and interpreted by attending physician. Findings discussed with patient. Assessment/Plan Sarah Harris is a 48 y.o. female with right knee osteoarthritis. Severe right knee degenerative arthritis Tricompartmental bilateral knee degenerative arthritis Class III obesity with BMI of 55 kg/m??? Peripheral vascular disease with varicosity Clinical and radiographic findings were discussed with the patient as well as the risks and benefits of medical and surgical treatment options. At this time, given the patient's BMI, we recommend weight loss prior to surgical discussion as the risks of surgery including infection, bleeding, non-healing, and cardioembolic events are increased in obese patients. Patient was seen by Zayra Lake her pool coordinator for high BMI patient's for further intervention protocol. 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 Weight loss may also help improve her symptoms and decrease pressure on her knee joints. The patient is understanding and agreeable. Risk and benefits of right primary cemented total knee arthroplasty were discussed at length with the patient including complications which are but not restricted to bleeding, infection, neurovascular injury, residual pain and stiffness, anesthetic risk, different thrombosis, pulm embolism, myocardial infarction, stroke, mortality less than 1%, wound lesions, wound healing complications, recurrent infections causing osteomyelitis, limb threatening life-threatening complications requiring above-knee amputations were all discussed at length with the patient despite which to proceed with surgery. Patient will need to continue with weight loss program prior to intervention. We have referred her to respective specialties to do the same. All questions were answered today. Options for (more content not included)... [facility] 01-07-2024 Note HPI Reported by patient. Location: right knee Quality: aching Severity: severe Timing: chronic > 1 year Prior Imaging: x ray Previous Injections:CSI, Viscosupplemenation, PT not helpful, lost 65 lbs in last year ROS Patient reports arthralgias/joint pain . reports no fever and no chills. reports no chest pain. reports no numbness and no weakness. Physical Exam Patient is a 48 yo female Constitutional: General Appearance: NAD and comfort comfortable. Ambulation: limited ambulation. Psychiatric: Orientation: oriented to time, place, and person. Mood and Affect: normal affect and mood and active and alert. Insight: good judgement. Gait and Station: Appearance: no assistive devices Cardiovascular System: Extremities warm and well perfused Lymph Nodes: Mood and Affect: mood and affect normal. Skin: Right Lower Extremity: normal. Left Lower Extremity: normal. Inspection and palpation: no rash or lesions and good turgor. Neurologic: Sensation: grossly intact. Head: Head: normocephalic and atraumatic. Neck: Neck: trachea midline. Lungs: Respiratory effort: no dyspnea. Musculoskeletal:: Extremities: no cyanosis or edema. Motor Strength and Tone: normal tone and motor strength. Joints, Bones, and Muscles: normal movement of all extremities and no contractures. Knee right Skin intact, no erythema or warmth, no open wounds or ulcerations, 5-100 ROM, ttp medial and lateral joint line, NVI, Orientation: Orientation: person yes, place yes, and time yes. Xrays Films reviewed today show advanced OA right knee Plan Refer to Dr Jain for surgical evaluation [facility] 10-19-2023 Note PROCEDURE: XR LUMBAR SPINE 1 VW CLINICAL INFORMATION: 48-year-old female undergoing lumbar spine surgery, COMPARISON: No prior study. TECHNIQUE: 1 fluoroscopic image of the lateral lower lumbar spine was obtained during surgery FINDINGS: Transpedicular screws and fusion rods span L5-S1. IMPRESSION: Intraoperative appearance of the lumbar spine. This report has been created using voice recognition software. It may contain minor errors which are inherent in voice recognition technology. Interpreted by: Kalyan Lund MD Signed by: Kalyan Lund MD 10/19/23 Final result [facility] 10-01-2023 Note PROCEDURE: XR CHEST (2 VW) CLINICAL INFORMATION: Preoperative evaluation, surgery type not specified by ordering physician. TECHNIQUE: PA and lateral chest radiographs. COMPARISON: None. FINDINGS: Cardiomediastinal silhouette is within normal limits. Lungs are clear. Degenerative changes are present in the thoracic spine. Soft tissues are unremarkable. IMPRESSION: No acute intrathoracic process. This report has been created using voice recognition software. It may contain minor errors which are inherent in voice recognition technology. Final report electronically signed by Dr. Henok Iyer on 10/01/2023 3:02 PM Interpreted by: Henok Iyer MD Signed by: Henok Iyer MD 10/01/23 Final result [facility] 08-02-2023 History of Present illness Narrative The patient is in today for her R SI joint injection.She states she had an injection by on 07/02/23 injection trigger point injection to 1-2 muscles, She states it helped for about 2 weeks. She states on 02/11/23 she had her L SI joint fused and it is doing. She states her pain is a 7/10 and a 10/10 when she is active. Associated Order(s): LARGE JOINT/BURSA INJECTION AND/OR ASPIRATION Post-Procedure Diagnose(s): Osteoarthritis of both sacroiliac joints LARGE JOINT/BURSA INJECTION AND/OR ASPIRATION Date/Time: 08/02/2023 10:30 AM Performed by: Keila Hemphill MD Authorized by: Keila Hemphill MD Supporting Documentation Indications: pain and osteoarthritis Procedure Details: Location: sacroiliac - R sacroiliac joint Local Anesthetic: bupivacaine 0.5% and lidocaine 1% Total Local Anesthetic: 4 mLs Guidance: ultrasound Ultrasound probe size: 4 mHz curvilinear Images were saved electronically. Needle size: 22 G Needle Length: 4.0 inch Approach: posterior Medication Verification: I have personally verified and performed the final check of the medication(s) used in this procedure prior to administration. The following items were included during the verification process for medication(s) administered: drug name, strength, volume, expiration, physical integrity and appearance of the medication(s). Medications administered: 1 mL BUPivacaine 0.5 %; 2 mL triamcinolone 40 MG/ML; 4 mL Lidocaine 10 mg/mL; 5 mL Sodium chloride (PF) 0.9 %; 4 mg dexAMETHasone 4 MG/ML Patient tolerance: patient tolerated the procedure well with no immediate complications Comments Medical Decision Making At today's visit I reviewed the history, physical examination, and previous pertinent imaging. We weighed the options of whether or not to proceed with an injection today based off of these findings and discussed alternatives. After this discussion, I felt that the injection was indicated and we elected to proceed. This evaluation and management service was a separate and identifiable service apart from the injection. Pre-Procedure Details The attending physician was present for the entire procedure. Consent: Consent was obtained prior to the procedure after discussion of the risks, benefits and alternatives, and expected outcomes were discussed with the patient. The possibilities of reaction to medication, bleeding, infection, the need for additional procedures, failure to diagnosis a condition, and creating a complication requiring operation were discussed with the patient. The patient concurred with the proposed plan, giving consent. Preparation: Patient was prepped in the usual sterile fashion. The patient was prepped with Chloraprep. Patient counseled on expected outcome and continued treatment and healing process. Patient tolerated the procedure well and was discharged in good condition with post-procedure instructions and anticipatory guidance regarding possible adverse reactions after the procedure including but not limited to infection, injection site flare reaction, allergic reaction. If corticosteroids were used then specifically the patient may develop hyperglycemia, facial flushing, heart palpitations amongst many other side effects associated with corticosteroids. Patient reports 100% relief while anaesthetized on the right side. The patient is in today for her R SI joint injection.She states she had an injection by on 07/02/23 injection trigger point injection to 1-2 muscles, She states it helped for about 2 weeks. She states on 02/11/23 she had her L SI joint fused and it is doing. She states her pain is a 7/10 and a 10/10 when she is active. LARGE JOINT/BURSA INJECTION AND/OR ASPIRATION Date/Time: 08/02/2023 10:30 AM Performed by: Keila Hemphill MD Authorized by: Keila Hemphill MD Supporting Documentation Indications: pain and osteoarthritis Procedure Details: Location: sacroiliac - R sacroiliac joint Local Anesthetic: bupivacaine 0.5% and lidocaine 1% Total Local Anesthetic: 4 mLs Guidance: ultrasound Ultrasound probe size: 4 mHz curvilinear Images were saved electronically. Needle size: 22 G Needle Length: 4.0 inch Approach: posterior Medication Verification: I have personally verified and performed the final check of the medication(s) used in this procedure prior to administration. The following items were included during the verification process for medication(s) administered: drug name, strength, volume, expiration, physical integrity and appearance of the medication(s). Medications administered: 1 mL BUPivacaine 0.5 %; 2 mL triamcinolone 40 MG/ML; 4 mL Lidocaine 10 mg/mL; 5 mL Sodium chloride (PF) 0.9 %; 4 mg dexAMETHasone 4 MG/ML Patient tolerance: patient tolerated the procedure well with no immediate complications Comments Medical Decision Making At today's visit I reviewed the history, physical examination, and previous pertinent imaging. We weighed the options of whether or not to proceed with an injection today based off of these findings and discussed alternatives. After this discussion, I felt that the injection was indicated and we elected to proceed. This evaluation and management service was a separate and identifiable service apart from the injection. Pre-Procedure Details The attending physician was present for the entire procedure. Consent: Consent was obtained prior to the procedure after discussion of the risks, benefits and alternatives, and expected outcomes were discussed with the patient. The possibilities of reaction to medication, bleeding, infection, the need for additional procedures, failure to diagnosis a condition, and creating a complication requiring operation were discussed with the patient. The patient concurred with the proposed plan, giving consent. Preparation: Patient was prepped in the usual sterile fashion. The patient was prepped with Chloraprep. Patient counseled on expected outcome and continued treatment and healing process. Patient tolerated the procedure well and was discharged in good condition with post-procedure instructions and anticipatory guidance regarding possible adverse reactions after the procedure including but not limited to infection, injection site flare reaction, allergic reaction. If corticosteroids were used then specifically the patient may develop hyperglycemia, facial flushing, heart palpitations amongst many other side effects associated with corticosteroids. Patient reports 100% relief while anaesthetized on the right side. I have reviewed, edited and added to the above note and agree with those findings. Additions if any: Keila Hemphill MD, [facility] documented in this encounter [facility] 08-02-2023 Instructions Papa Prater - 08/02/2023 10:30 AM EST Patient counseled on expected outcome and continued treatment and healing process. Patient tolerated the procedure well and was discharged in good condition with post-procedure instructions and anticipatory guidance regarding possible adverse reactions after the procedure including but not limited to infection, injection site flare reaction, allergic reaction. If corticosteroids were used then specifically the patient may develop hyperglycemia, facial flushing, heart palpitations amongst many other side effects associated with corticosteroids. documented in this encounter [facility] 07-02-2023 Miscellaneous Notes Operative Report DATE PERFORMED: 07/02/2023 PREOPERATIVE DIAGNOSIS: Lumbar stenosis. POSTOPERATIVE DIAGNOSIS: Lumbar stenosis. PROCEDURE: 1. Bilateral erector spinae trigger point injections-lumbar. 2. Use of fluoroscopy-interpreted intraoperatively by neurosurgeon. SURGEON(S): Dr. Zheng. PROCEDURE IN DETAIL: Ms. Harris was taken to the operating room, placed prone on the operating room table. The point of maximal tenderness along the posterior-superior iliac crest medially was palpated and marked. The patient was then sedated. A 22-gauge spinal needles were then inserted percutaneously along the erector spinae muscles bilaterally at the point of maximal tenderness. A 30 cc of 0.5% Marcaine and 80 mg of Depo-Medrol were then injected equally bilaterally. Needle was removed. Band-Aid was placed. The patient was then turned supine on the [facility], taken to recovery room in stable and satisfactory condition, having tolerated the procedure well. Dictated By: MD Elliot Umanzor MD ATTENDING MARCIA/MedQ JOB: [id number] DOC: [id number] Discontinued IV to left hand, catheter intact. Covered with dressing. Pt tolerated well. POST OPERATIVE/PROCEDURE NOTE Sarah Harris ([id number]) SURGEON Surgeon(s) and Role: * Elliot Zheng MD - Primary MANAGER CONVENTION None ANESTHESIOLOGIST CARPET TILE LAYER: Terry Vicente APRN-CARPET TILE LAYER SURGICAL STAFF Brine Supervisor: Ana Harper RN Scrub Person: Susy Michaud Brine Supervisor Assist: Jackelin Remy RN PROCEDURE PERFORMED Procedure(s) (LRB): INJECTION MUSCLE TRIGGER POINT 1 OR 2 MUSCLES (Bilateral) PRIMARY CLOSURE No ANESTHESIA (type of) Monitor Anesthesia Care ESTIMATED BLOOD LOSS None DRAINS None BLOOD PRODUCTS None FLUIDS Intake/Output Summary (Last 24 hours) at 07/02/2023 0941 Last data filed at 07/02/2023 0934 Gross per 24 hour Intake -- Output 0 ml Net 0 ml PRE OPERATIVE DIAGNOSIS Spinal stenosis of lumbar region with neurogenic claudication [M48.062] POST OPERATIVE DIAGNOSIS Post-Op Diagnosis Codes: * Spinal stenosis of lumbar region with neurogenic claudication [M48.062] FINDINGS No significant abnormalities CONDITION OF PATIENT Stable COMPLICATIONS None GRAFTS AND/OR IMPLANTS See OR Nursing Documentation SPECIMENS No specimen sent * No specimens in log * Elliot Zheng MD July 02, 2023 9:41 AM documented in this encounter [facility] 07-02-2023 Nurse Note Discontinued IV to left hand, catheter intact. Covered with dressing. Pt tolerated well. [facility] 07-02-2023 Surgery Postoperative evaluation and management note Operative Report DATE PERFORMED: 07/02/2023 PREOPERATIVE DIAGNOSIS: Lumbar stenosis. POSTOPERATIVE DIAGNOSIS: Lumbar stenosis. PROCEDURE: 1. Bilateral erector spinae trigger point injections-lumbar. 2. Use of fluoroscopy-interpreted intraoperatively by neurosurgeon. SURGEON(S): Dr. Zheng. PROCEDURE IN DETAIL: Ms. Harris was taken to the operating room, placed prone on the operating room table. The point of maximal tenderness along the posterior-superior iliac crest medially was palpated and marked. The patient was then sedated. A 22-gauge spinal needles were then inserted percutaneously along the erector spinae muscles bilaterally at the point of maximal tenderness. A 30 cc of 0.5% Marcaine and 80 mg of Depo-Medrol were then injected equally bilaterally. Needle was removed. Band-Aid was placed. The patient was then turned supine on the [facility] [place], taken to recovery room in stable and satisfactory condition, having tolerated the procedure well. Dictated By: MD Elliot Umanzor MD ATTENDING JS/MedQ JOB: [id number] DOC: [id number] [facility] 07-02-2023 Hospital Discharge instructions Liss Iyer RN - 07/02/2023 9:48 AM EST POST SPINAL BLOCK/DISCOGRAM HOME INSTRUCTIONS Dr. Zheng [facility] Activity at Home - Gentle activities today. You may resume normal activities tomorrow. - Limit the amount of heavy lifting and strenuous exercise to a minimum. Incision Care - You may remove your Band-Aid tomorrow and take a shower. PLEASE MAKE SURE NOTHING IS RUBBING AGAINST SURGICAL SITE Diet - You may return to your normal daily diet. Slightly increase the amount of fluids you drink today. Medications - Pain medications should be kept to a minimum in order to determine effectiveness of the procedure. All other routine daily medications should be restarted unless specified by your doctor. When to Call Your Surgeon - Your temperature is 101 degrees or above and does not come down with Tylenol. - You notice drainage, increased redness, or warmth at the injection site. - You have calf pain or unusual swelling in your lower legs. - If you are experiencing shortness of breath,loose control of your bowel/bladder, chest pain, or abnormal coughing CALL 911. - Call the office with any questions, problems, or to schedule your next appointment. Our number is . For the next 24 hours: DO NOT DRIVE OR OPERATE HEAVY MACHINERY. DO NOT DRINK ALCOHOL. DO NOT MAKE ANY LIFE OR LEGAL DECISIONS. documented in this encounter [facility] 07-02-2023 Surgery Postoperative evaluation and management note POST OPERATIVE/PROCEDURE NOTE Sarah Harris ([id number]) SURGEON Surgeon(s) and Role: * Elliot Zheng MD - Primary MANAGER CONVENTION None ANESTHESIOLOGIST CARPET TILE LAYER: Terry Vicente APRN-CARPET TILE LAYER SURGICAL STAFF Brine Supervisor: Ana Harper RN Scrub Person: Susy Michaud Brine Supervisor Assist: Jackelin Remy RN PROCEDURE PERFORMED Procedure(s) (LRB): INJECTION MUSCLE TRIGGER POINT 1 OR 2 MUSCLES (Bilateral) PRIMARY CLOSURE No ANESTHESIA (type of) Monitor Anesthesia Care ESTIMATED BLOOD LOSS None DRAINS None BLOOD PRODUCTS None FLUIDS Intake/Output Summary (Last 24 hours) at 07/02/2023 0941 Last data filed at 07/02/2023 0934 Gross per 24 hour Intake -- Output 0 ml Net 0 ml PRE OPERATIVE DIAGNOSIS Spinal stenosis of lumbar region with neurogenic claudication [M48.062] POST OPERATIVE DIAGNOSIS Post-Op Diagnosis Codes: * Spinal stenosis of lumbar region with neurogenic claudication [M48.062] FINDINGS No significant abnormalities CONDITION OF PATIENT Stable COMPLICATIONS None GRAFTS AND/OR IMPLANTS See OR Nursing Documentation SPECIMENS No specimen sent * No specimens in log * Elliot Zheng MD July 02, 2023 9:41 AM [facility] 07-02-2023 Nurse Note Patient transported back to [place] [id number] via cart by HEAVENLY RODRÍGUEZ. Monitors applied and report given to HEAVENLY FERNANDEZ documented in this encounter [facility] 07-02-2023 Nurse Surgical operation note Patient transported back to [place] [address] via cart by HEAVENLY RODRÍGUEZ. Monitors applied and report given to HEAVENLY FERNANDEZ [facility] 02-11-2023 History of Present illness Narrative 02/11/23 1545 Surgery Information RN Approved Intervention as tolerated Referring Physician Dr. Zheng Surgery date 02/11/23 Type of Surgery left SI arthrodesis Home Setting Residence House;Other (Comments) (resides on main level of 2 story home) Lives With spouse;child(shy);other (see comments) (18 year old son) First floor setup bedroom;tub shower Number of stairs to enter home 4 Number of stairs in home full flight but patient does not access Stair Railings at Home entry - present on both sides Mobility Equipment Available none used;2 wheeled walker Home Environment Details Patient does not work. Is able to drive. Patient Orientation Statement Patient Orientation Statement Patient A&O x4. Pleasant and cooperative throughout training. Range of Motion RLE WFL LLE WFL Strength RLE WFL LLE WFL Functional Status Bed Mobility / Transfers Educated to log roll for transfer out of patient's right side of the bed. Able to complete with CGA. Also edcuated for reverse log roll for sit to supine. Ambulation/Description of Gait Patient stood with CGA to FWW. She walked 150 feet with FWW + SBA. Good gait speed noted. Step through pattern. She ascended/descended step with rail + cane (to simulate bilateral UE support) with SBA. Verbal cues for proper sequencing. Also completed toilet transfer with use of grab bar + SBA. Able to complete pericare with SBA only. Endurance Fair+ Patient reported 3-4/10 pain prior to mobility and 2/10 pain after. Balance Sitting good Standing other (see comments) (fair+) Walking other (see comments) (fair+) Other Testing Sensation denies numbness or tingling to bilateral LE's (wasn't present pre-operatively as well) Posture mild kyphosis Teaching patient was instructed in and/or given a handout on log rolling technique;patient was given a handout on tips for proper body mechanics;the therapist reinforced the physician's orders to wear the brce/corset as directed. Patient Instructions Patient Instruction patient was instructed in and/or given a handout on log rolling technique;patient was given a handout on tips for proper body mechanics;the therapist reinforced the physician's orders to wear the brace/corset as directed Assessment Rehab Potential good Assessment Narrative Patient in bed upon arrival. Spouse present. Patient indicates she did complete pre operative training with PT. Reviewed bed exercises with patient demonstrating good technique (ankle pumps, quad sets, TrA activation, glut sets, heels slides, glut med activation). Denies questions regarding program and states she has packet at home. Educated to WBAT and functional implications. Also educated that she will receive LSO at first f/u appt with Dr. Zheng. Patient to minimize aggressive bending, lift >5-10 lbs, twisting but cleared to complete functional daily tasks such as donning socks and shoes. Re-educated for log roll technique, completing with CGA. Sit to stand with CGA to FWW. She ambulated down hallway with steady gait noted. Good step length and normal walking speed. Patient requested to use restroom. She transferred on/off commode and completed pericare with SBA. She washed her hands unsupported with SBA. Finished session with stair training, ascending/descending 6 step with bilateral UE support. Verbal cues for sequencing only. Patient demonstrated safe functional mobility. Denies questions or concerns regarding instruction. Patient to continue LE HEP until follow up visit with Dr. Zheng. Spine Surgury Goals Perform bed mobility independently/supervision other (see comment) (CGA) Perform sit to stand transfers with standby assistance/supervision yes Patient will ambulate with assistive device PRN and standby assistance/supervision for 100 feet yes Patient and/or family demonstrates or describes how to don and doff brace or corset appropriately if ordered other (see comment) (states completed at pre op training, patient to receive brace at first follow up visit) Negotiate stairs with assistance if needed yes Plan Treatment Today bed mobility;transfer training;gait training;family instruction;patient instruction Today's Treatment Included see assessment Initial Evaluation/Screen Completed? yes Therapist Information License # [id number] General Information Pertinent History of Current Problem Patient completed postoperative PT session at OP clinic. documented in this encounter [facility] 02-11-2023 Miscellaneous Notes [id number] Attempted to initiate OT evaluation. Pt was dressed and in the wc getting ready to leave when I approached. Pt declined need for OT. Discharge instructions provided, pt states understanding and denies questions. PT in with pt at This time. Omero Carpenter CRNA administered benadryl for itching at this time POST OPERATIVE/PROCEDURE NOTE Sarah Harris ([id number]) SURGEON Surgeon(s) and Role: * Elliot Zheng MD - Primary MANAGER CONVENTION Mrecedes ANESTHESIOLOGIST CARPET TILE LAYER: Omero Carpenter APRN-CARPET TILE LAYER SURGICAL STAFF Brine Supervisor: Ana Harper RN; Ab Justin RN; Hao Barnhart RN Registered Nurse Pack Master: Clara Long RN Scrub Person: Susy Michaud; Eulalia Osborne PROCEDURE PERFORMED Procedure(s) (LRB): ARTHRODESIS SACROILIAC JOINT MINIMALLY INVASIVE W/ TRANSFIXING DEVICE (Left) FLUOROSCOPY IN OR (Left) PRIMARY CLOSURE Yes ANESTHESIA (type of) General ESTIMATED BLOOD LOSS Minimal DRAINS None BLOOD PRODUCTS None FLUIDS Intake/Output Summary (Last 24 hours) at 02/11/2023 1340 Last data filed at 02/11/2023 1227 Gross per 24 hour Intake 1100 ml Output -- Net 1100 ml PRE OPERATIVE DIAGNOSIS Sacroiliitis [M46.1] POST OPERATIVE DIAGNOSIS Post-Op Diagnosis Codes: * Sacroiliitis [M46.1] FINDINGS No significant abnormalities CONDITION OF PATIENT Stable COMPLICATIONS None GRAFTS AND/OR IMPLANTS See OR Nursing Documentation SPECIMENS No specimen sent * No specimens in log * Elliot Zheng MD February 11, 2023 1:40 PM documented in this encounter [facility] 02-11-2023 Progress note Formatting of t his note might be different from the original. [id number]- Attempted to initiate OT evaluation. Pt was dressed and in the wc getting ready to leave when I approached. Pt declined need for OT. T [facility] 02-11-2023 Nurse Note Discharge instructions provided, pt states understanding and denies questions. PT in with pt at This time. T [facility] 02-11-2023 Hospital Discharge instructions Margaret Ortiz RN - 02/11/2023 3:[address] [facility] Post-Operative [facility] Surgery Home Going Instructions ACTIVITES: For Twelve Weeks: No heavy lifting, bending or twisting Do not lift anything that weighs more than 10 pounds. Do not push or pull anything Short frequent walks are good for you. Increase your activity gradually. If your pain increases and you get tired, rest. Do your exercises as instructed by the therapist. It is OK to use stairs INCISION CARE: Keep your incision covered until Post Op day # 2. Then remove your dressing and shower. It is okay to get your incision wet. Do not remove or pick glue from your incision, it will come off on its own. Do not soak in tub or pool until 30 days after your surgery. Ice continuously x 48 hours on operative site SELF CARE: If a lumbar brace is ordered, wear it when you are out of bed. When in bed, do not wear brace. If you have an incision on your low back, always wear a T-shirt tucked into your underwear to avoid rubbing of your underwear s elastic band against your incision. Wear lumbar brace over a cotton T shirt. If a cervical collar is ordered, you must wear it at all times, including in bed. You may remove the cervical collar to shower or if you have been cleared to drive. Clean and change cervical collar pads every few days and/or when dirty. OTHER INFORMATION: You can be a passenger in a car anytime. You will have good days, and bad days. This is okay and is part of the healing process. You may experience numbness, tingling, or pain in areas that you did not have before surgery. Again, this is okay and is part of the healing process. Wean your narcotics, anti-inflammatory, and muscle relaxant medications rapidly. You must take an over the counter stool softener while taking narcotic pain medication to prevent constipation. Colace, Senna, Dulcolax, and Milk of Magnesia are some options. No smoking, nicotine products, or anti-inflammatory medications should be taken for 6 months if you have had a cervical, thoracic, or lumbar fusion. Your bone may not fuse or glue together if you don t follow this carefully. Please attend family, community and jewish events as soon as possible after your surgery. These functions help speed up your recovery. Please call the office: if you have any questions or concerns during your post op recovery at home ANESTHESIA PROTOCOL NEXT 24 HOURS.. NO DRIVING NO ALCOHOL NO SIGNING ANY LEGAL DOCUMENTS NO OPERATING ANY HEAVY EQUIPMENT YOU MAY DRIVE WHEN NO LONGER TAKING ANY NARCOTICS AND FEEL SAFE TO DO SO WHEN TO NOTIFY YOUR SURGEON: Your temperature is 101 degrees or over and does not respond to Tylenol You notice drainage, increased redness, or warmth at your incision You have increasing pain that is not relieved by rest or medication You have calf pain or unusual swelling in your legs If you have shortness of breath, chest pain, or abnormal coughing, CALL 911 FOLLOW UP APPOINTMENT: Call Dr. Zheng s office: to schedule a follow up appointment for 2 weeks post-op.If you have hardware in you from the surgery, you will need x-rays prior to your appointment. When you make your follow up appointment with our office please let us know to which facility the x-ray prescription should be faxed. The following attachments cannot be sent through Care Everywhere.scopolamine transdermal ([place])documented in this encounter [facility] 02-11-2023 Nurse Note Omero Carpenter CRNA administered benadryl for itching at this time [facility] 02-11-2023 Nurse Note Patient transported via cart to PACU area by HEAVENLY HARTLEY and COLETTE NOBLE. Monitors applied and report given to HEAVENLY FERNANDEZ and HEAVENLY CHILD documented in this encounter [facility] 02-11-2023 Nurse Surgical operation note Patient transported via cart to PACU area by HEAVENLY HARTLEY and COLETTE NOBLE. Monitors applied and report given to HEAVENLY FERNANDEZ and HEAVENLY CHILD [facility] 02-11-2023 Surgery Postoperative evaluation and management note POST OPERATIVE/PROCEDURE NOTE Sarah Kimberyl ([id number]) SURGEON Surgeon(s) and Role: * Elliot Zheng MD - Primary MANAGER CONVENTION Mercedes ANESTHESIOLOGIST CARPET TILE LAYER: Omero Carpenter APRN-CARPET TILE LAYER SURGICAL STAFF Brine Supervisor: Ana Harper RN; Ab Justin RN; Hao Barnhart RN Registered Nurse Pack Master: Clara Long RN Scrub Person: Susy Michaud; Eulalia Osborne PROCEDURE PERFORMED Procedure(s) (LRB): ARTHRODESIS SACROILIAC JOINT MINIMALLY INVASIVE W/ TRANSFIXING DEVICE (Left) FLUOROSCOPY IN OR (Left) PRIMARY CLOSURE Yes ANESTHESIA (type of) General ESTIMATED BLOOD LOSS Minimal DRAINS None BLOOD PRODUCTS None FLUIDS Intake/Output Summary (Last 24 hours) at 02/11/2023 1340 Last data filed at 02/11/2023 1227 Gross per 24 hour Intake 1100 ml Output -- Net 1100 ml PRE OPERATIVE DIAGNOSIS Sacroiliitis [M46.1] POST OPERATIVE DIAGNOSIS Post-Op Diagnosis Codes: * Sacroiliitis [M46.1] FINDINGS No significant abnormalities CONDITION OF PATIENT Stable COMPLICATIONS None GRAFTS AND/OR IMPLANTS See OR Nursing Documentation SPECIMENS No specimen sent * No specimens in log * Elliot Zheng MD February 11, 2023 1:40 PM [facility] 12-15-2022 History of Present illness Narrative The patient is in today for her bilateral SI joints. She is in today for her L SI joint injection. She states her pain is achy and she feels pulling. She states her pain is a 7/10 in the office and a 10/10 when she is active. The patient received a manual L troc bursa injection and she stated the injection wore off quick. Her L SI injection that she received on 10/23/22 only lasted 5-6 weeks . Associated Order(s): LARGE JOINT/BURSA INJECTION AND/OR ASPIRATION Post-Procedure Diagnose(s): Osteoarthritis of both sacroiliac joints LARGE JOINT/BURSA INJECTION AND/OR ASPIRATION Date/Time: 12/15/2022 1:30 PM Performed by: Keila Hemphill MD Authorized by: Keila Hemphill MD Supporting Documentation Indications: pain and osteoarthritis Procedure Details: Location: sacroiliac - L sacroiliac joint Local Anesthetic: bupivacaine 0.5% and lidocaine 1% Total Local Anesthetic: 4 mLs Guidance: ultrasound Ultrasound probe size: 4 mHz curvilinear Images were saved electronically. Needle size: 22 G Needle Length: 4.0 inch Approach: posterior Medication Verification: I have personally verified and performed the final check of the medication(s) used in this procedure prior to administration. The following items were included during the verification process for medication(s) administered: drug name, strength, volume, expiration, physical integrity and appearance of the medication(s). Medications administered: 1 mL bupivacaine 0.5 %; 2 mL triamcinolone 40 MG/ML; 4 mL Lidocaine 10 mg/mL; 5 mL Sodium chloride (PF) 0.9 %; 4 mg dexAMETHasone 4 MG/ML Patient tolerance: patient tolerated the procedure well with no immediate complications Comments Medical Decision Making At today's visit I reviewed the history, physical examination, and previous pertinent imaging. We weighed the options of whether or not to proceed with an injection today based off of these findings and discussed alternatives. After this discussion, I felt that the injection was indicated and we elected to proceed. This evaluation and management service was a separate and identifiable service apart from the injection. Pre-Procedure Details The attending physician was present for the entire procedure. Consent: Consent was obtained prior to the procedure after discussion of the risks, benefits and alternatives, and expected outcomes were discussed with the patient. The possibilities of reaction to medication, bleeding, infection, the need for additional procedures, failure to diagnosis a condition, and creating a complication requiring operation were discussed with the patient. The patient concurred with the proposed plan, giving consent. Preparation: Patient was prepped in the usual sterile fashion. The patient was prepped with Chloraprep. Patient counseled on expected outcome and continued treatment and healing process. Patient tolerated the procedure well and was discharged in good condition with post-procedure instructions and anticipatory guidance regarding possible adverse reactions after the procedure including but not limited to infection, injection site flare reaction, allergic reaction. If corticosteroids were used then specifically the patient may develop hyperglycemia, facial flushing, heart palpitations amongst many other side effects associated with corticosteroids. Patient reports 100% pain relief while anaesthetized on left side, slight right side pain. The patient has a year history of pain involving left sacroiliac joint. The diagnosis of pain emanating from the sacroiliac joint has been arrived at with diligent investigation. In the course our recent treatment as well as prior treatment, alternative pain generators and diagnoses have been excluded. This has been accomplished clinically and diagnostically by incorporating information from history, physical exam, imaging and diagnostic guided injection. The patient meets both ISASS and MARY guidelines for minimally invasive SI joint fusion: We have found: Over 6 months of intensive conservative treatment has failed including physical therapy, medications, SI belt, therapeutic injections. 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 100% relief while anesthetized during guided injection to the Left sacroiliac joint on 08/14/2022. 100% relief while anesthetized during guided injection to the Left sacroiliac joint on . The patient has an absence of generalized pain or disorders. Positive Cait's sign. Positive tenderness to the sacral sulcus on the left side. Positive physical exam for 3 or more provocative maneuvers including thigh thrust, NEYDA, distraction test. Diagnostic imaging reveals degenerative changes involving the sacroiliac joint and no evidence for inflammatory arthropathy is noted. All other diagnoses that could account for the patient's pain have been ruled out. Unfortunately, we have not accomplished long-term pain relief with conservative measures for 6 months or more. We have exhausted conservative measures including activity modification, physical therapy and injection treatments. The patient is expected to continue with pain and disability. The best next step is fusion of the sacroiliac joint, in my opinion. We will now refer to Dr. Zheng for surgical opinion and recommendations. The patient is in today for her bilateral SI joints. She is in today for her L SI joint injection. She states her pain is achy and she feels pulling. She states her pain is a 7/10 in the office and a 10/10 when she is active. The patient received a manual L troc bursa injection and she stated the injection wore off quick. Her L SI injection that she received on 10/23/22 only lasted 5-6 weeks . LARGE JOINT/BURSA INJECTION AND/OR ASPIRATION Date/Time: 12/15/2022 1:30 PM Performed by: Keila Hemphill MD Authorized by: Keila Hemphill MD Supporting Documentation Indications: pain and osteoarthritis Procedure Details: Location: sacroiliac - L sacroiliac joint Local Anesthetic: bupivacaine 0.5% and lidocaine 1% Total Local Anesthetic: 4 mLs Guidance: ultrasound Ultrasound probe size: 4 mHz curvilinear Images were saved electronically. Needle size: 22 G Needle Length: 4.0 inch Approach: posterior Medication Verification: I have personally verified and performed the final check of the medication(s) used in this procedure prior to administration. The following items were included during the verification process for medication(s) administered: drug name, strength, volume, expiration, physical integrity and appearance of the medication(s). Medications administered: 1 mL bupivacaine 0.5 %; 2 mL triamcinolone 40 MG/ML; 4 mL Lidocaine 10 mg/mL; 5 mL Sodium chloride (PF) 0.9 %; 4 mg dexAMETHasone 4 MG/ML Patient tolerance: patient tolerated the procedure well with no immediate complications Comments Medical Decision Making At today's visit I reviewed the history, physical examination, and previous pertinent imaging. We weighed the options of whether or not to proceed with an injection today based off of these findings and discussed alternatives. After this discussion, I felt that the injection was indicated and we elected to proceed. This evaluation and management service was a separate and identifiable service apart from the injection. Pre-Procedure Details The attending physician was present for the entire procedure. Consent: Consent was obtained prior to the procedure after discussion of the risks, benefits and alternatives, and expected outcomes were discussed with the patient. The possibilities of reaction to medication, bleeding, infection, the need for additional procedures, failure to diagnosis a condition, and creating a complication requiring operation were discussed with the patient. The patient concurred with the proposed plan, giving consent. Preparation: Patient was prepped in the usual sterile fashion. The patient was prepped with Chloraprep. Patient counseled on expected outcome and continued treatment and healing process. Patient tolerated the procedure well and was discharged in good condition with post-procedure instructions and anticipatory guidance regarding possible adverse reactions after the procedure including but not limited to infection, injection site flare reaction, allergic reaction. If corticosteroids were used then specifically the patient may develop hyperglycemia, facial flushing, heart palpitations amongst many other side effects associated with corticosteroids. Patient reports 100% pain relief while anaesthetized on left side, slight right side pain. The patient has a year history of pain involving left sacroiliac joint. The diagnosis of pain emanating from the sacroiliac joint has been arrived at with diligent investigation. In the course our recent treatment as well as prior treatment, alternative pain generators and diagnoses have been excluded. This has been accomplished clinically and diagnostically by incorporating information from history, physical exam, imaging and diagnostic guided injection. The patient meets both ISASS and MARY guidelines for minimally invasive SI joint fusion: We have found: Over 6 months of intensive conservative treatment has failed including physical therapy, medications, SI belt, therapeutic injections. 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 100% relief while anesthetized during guided injection to the Left sacroiliac joint on 08/14/2022. 100% relief while anesthetized during guided injection to the Left sacroiliac joint on . The patient has an absence of generalized pain or disorders. Positive Cait's sign. Positive tenderness to the sacral sulcus on the left side. Positive physical exam for 3 or more provocative maneuvers including thigh thrust, NEYDA, distraction test. Diagnostic imaging reveals degenerative changes involving the sacroiliac joint and no evidence for inflammatory arthropathy is noted. All other diagnoses that could account for the patient's pain have been ruled out. Unfortunately, we have not accomplished long-term pain relief with conservative measures for 6 months or more. We have exhausted conservative measures including activity modification, physical therapy and injection treatments. The patient is expected to continue with pain and disability. The best next step is fusion of the sacroiliac joint, in my opinion. We will now refer to Dr. Zheng for surgical opinion and recommendations. I have reviewed, edited and added to the above note and agree with those findings. Additions if any: Keila Hemphill MD, [facility] [employer] [facility] [employer] documented in this encounter [facility] 12-15-2022 Instructions Papa Prater - 12/15/2022 1:30 PM EDT Patient counseled on expected outcome and continued treatment and healing process. Patient tolerated the procedure well and was discharged in good condition with post-procedure instructions and anticipatory guidance regarding possible adverse reactions after the procedure including but not limited to infection, injection site flare reaction, allergic reaction. If corticosteroids were used then specifically the patient may develop hyperglycemia, facial flushing, heart palpitations amongst many other side effects associated with corticosteroids. documented in this encounter [facility] 10-23-2022 History of Present illness Narrative Associated Order(s): LARGE JOINT/BURSA INJECTION AND/OR ASPIRATION: L greater trochanteric bursa Referred by: Dr Elliot Zheng Chief Complaint Patient presents with Lower Back - Follow-up Left Sacroiliac Joint HPI 47 year old female comes in today for lower back pain and follow up to 08/14/2022 US guided left sacroiliac joint injection. Patient states that she had to cancel her original follow up due to having a hysterectomy. Patient states that her pain is described as shooting, aching, and throbbing. Patient rates her pain as 5/10 at rest and 9/10 while active. Patient states that overall injection helped up until about a week ago. Patient states now she has pain across her whole lower back. Location: Lower back Left Sacroiliac joint Quality: Shooting, aching, throbbing Duration: Years NSAIDs? Celebrex, Gabapentin Analgesics? Tylenol Other pain modalities? No Physical therapy? previously Xrays? 06/10/2022 lumbar MRI? 05/18/2022 lumbar Patient activity (i.e. Job, sport, etc.): unemployed Treatment performed or prescribed at last visit? 08/14/2022 Sports US guided left sacroiliac joint injection Response to treatment since last visit? Patient states that overall injection helped up until about a week ago. Patient states now she has pain across her whole lower back. Current Outpatient Medications: Celecoxib 200 MG capsule, Take 1 capsule by mouth 2 times daily., Disp: , Rfl: Dicyclomine 20 MG tablet, Take 1 tablet by mouth every 6 hours. 3 times per day, Disp: , Rfl: ferrous sulfate 325 (65 Fe) MG tablet, Take 1 tablet by mouth 3 times daily with meals., Disp: , Rfl: Gabapentin 300 MG capsule, Take 1 capsule by mouth 3 times daily., Disp: , Rfl: metFORMIN 500 MG tablet, Take 2 tablets by mouth 2 times daily with meals., Disp: , Rfl: Montelukast (Singulair) 10 MG tablet, Take 1 tablet by mouth daily., Disp: , Rfl: Pantoprazole Sodium (PROTONIX PO), Take 20 mg by mouth. 2 times daily, Disp: , Rfl: PARoxetine 20 MG tablet, Take 1.5 tablets by mouth daily. 30 mg, Disp: , Rfl: Turmeric (QC Tumeric Complex) 500 MG capsule, Take by mouth., Disp: , Rfl: Verapamil 240 MG Tab CR, Take 1 tablet by mouth daily., Disp: , Rfl: Family History Problem Relation Age of Onset Depression Mother Hypertension Mother Anxiety Disorder Mother Diabetes Father Depression Father Anxiety Disorder Father Hypertension Father Social History Tobacco Use Smoking status: Never Smokeless tobacco: Never Substance Use Topics Alcohol use: Not Currently Drug use: Never Past Surgical History: Procedure Laterality Date REMOVAL BILIARY DUCT/GALLBLADDER CALCULI/DEBRIS PERCUTANEOUS W/ IMAGE 2009 HERNIA REPAIR Vitals: 10/23/22 1242 Weight: (!) 166.9 kg (367 lb 15.2 oz) Height: 1.676 m (5' 6 ) Constitutional No fevers, chills or sweats, unintentional weight gain or weight loss, night pain, or night sweats except as per HPI. Cardiovascular No recent chest pain or palpitations. No claudication. No new or worsening lower extremity edema except as per HPI. Respiratory No new or worsening shortness of breath, dyspnea on exertion, orthopnea or paroxysmal nocturnal dyspnea except as per HPI. Gastrointestinal No recent heartburn or stomach upset, no history of ulcers except as per HPI. Musculoskeletal No joint pain, stiffness, or weakness except as per HPI. Endocrine No polyphagia, polydypsia, or polyuria. Hematologic No known or recent anemia, no excessive bleeding. Rheumatologic No history or currently active autoimmune or rheumatologic disease except as per HPI. Integumentary No new or relevant rashes or lesions except as per HPI. Neurologic No numbness, tingling, or weakness into her distal extremities except as per HPI. Constitutional Normal No acute distress. Well nourished. Well developed. Head/Face Normal Facial features - Normal. Eyebrows - Normal. Skull - Normal. Hair and scalp - Normal. Eyes Normal General - Right: Normal, Left: Normal. Lids/external - Right: Normal, Left: Normal. Conjunctiva - Right: Normal, Left: Normal. Ears Normal Inspection - Right: Normal, Left: Normal. Pinna - Right: Normal, Left: Normal. Nasopharynx Normal External nose - Normal. Nares - Right: Normal. Nasal Mucosa - Normal. Lips/teeth/gums - Normal. Buccal mucosa - Normal. Neck Exam Normal Inspection - Normal. Range of motion - Normal. Neck Exam Comments Supple. Respiratory Normal Inspection - Normal. Cough - Absent. Effort - Normal. Cardiovascular Normal Heart rate - Regular rate. Vascular Normal Pulses - Radial: Normal, Brachial: Normal, Dorsalis pedis: Normal, Posterior tibial: Normal. Capillary refill - Less than 2 seconds. Skin * Rash - Description: none. Extremity Normal No Edema. No Calf tenderness. Diabetic Foot Screen Normal Pulses - Dorsalis pedis: Normal, Posterior tibial: Normal. Neurological Normal Level of consciousness - Normal. Orientation - Normal. Memory - Normal. Psychiatric Normal No agitation. Appropriate mood and affect. Appropriate affect. Normal insight. Normal judgment. Interval exam: Lumbar Spine Inspection: No erythema, ecchymosis, swelling or deformity. No open wounds. NVID Left hip Inspection: No erythema, ecchymosis, swelling or deformity. No open wounds. NVID Bilateral hip xray reviewed from 2022 Lumbar spine xray reviewed from 06/10/[address] Hemphill 08/14/2022,08/13/2022 History obtained from patient. ASSESSMENT and PLAN: 1. Osteoarthritis of both sacroiliac joints 2. Pain of both sacroiliac joints 3. Pain of left hip Sarah's response was decent at 5-6 weeks, but not long enough. We feel confident we have identified the man pain generator. Discussed next steps including REILLY, PRP and surgery . She would like to avoid surgery. Rx sent for Supartz to [facility]. Sarah may call the office with any questions or concerns. Referrals: None Medications prescribed today: Supartz to [facility] in [place] Follow up plan: Sports US guided left sacroiliac joint injection with Supartz and [employer] INTERN Q71794, Dex J8540, Tri J3490 Severity of problem(s): Mild Risk of morbidity or complication from the condition and/or additional testing or treatment: Low LARGE JOINT/BURSA INJECTION AND/OR ASPIRATION: L greater trochanteric bursa Date/Time: 10/23/2022 1:00 PM Performed by: Keila Hemphill MD Authorized by: Keila Hemphill MD Supporting Documentation Indications: pain Procedure Details: Location: hip - L greater trochanteric bursa Needle size: 22 G Approach: lateral Medication Verification: I have personally verified and performed the final check of the medication(s) used in this procedure prior to administration. The following items were included during the verification process for medication(s) administered: drug name, strength, volume, expiration, physical integrity and appearance of the medication(s). Medications administered: 2 mL triamcinolone 40 MG/ML; 1 mL lidocaine 10 mg/mL; 1 mL bupivacaine 0.5 %; 4 mg dexAMETHasone 4 MG/ML Patient tolerance: patient tolerated the procedure well with no immediate complications Comments Medical Decision Making At today's visit I reviewed the history, physical examination, and previous pertinent imaging. We weighed the options of whether or not to proceed with an injection today based off of these findings and discussed alternatives. After this discussion, I felt that the injection was indicated and we elected to proceed. This evaluation and management service was a separate and identifiable service apart from the injection. Pre-Procedure Details The attending physician was present for the entire procedure. Consent: Consent was obtained prior to the procedure after discussion of the risks, benefits and alternatives, and expected outcomes were discussed with the patient. The possibilities of reaction to medication, bleeding, infection, the need for additional procedures, failure to diagnosis a condition, and creating a complication requiring operation were discussed with the patient. The patient concurred with the proposed plan, giving consent. Preparation: Patient was prepped in the usual sterile fashion. The patient was prepped with alcohol. Patient counseled on expected outcome and continued treatment and healing process. Patient tolerated the procedure well and was discharged in good condition with post-procedure instructions and anticipatory guidance regarding possible adverse reactions after the procedure including but not limited to infection, injection site flare reaction, allergic reaction. If corticosteroids were used then specifically the patient may develop hyperglycemia, facial flushing, heart palpitations amongst many other side effects associated with corticosteroids. Referred by: Dr Elliot Zheng Chief Complaint Patient presents with Lower Back - Follow-up Left Sacroiliac Joint HPI 47 year old female comes in today for lower back pain and follow up to 08/14/2022 US guided left sacroiliac joint injection. Patient states that she had to cancel her original follow up due to having a hysterectomy. Patient states that her pain is described as shooting, aching, and throbbing. Patient rates her pain as 5/10 at rest and 9/10 while active. Patient states that overall injection helped up until about a week ago. Patient states now she has pain across her whole lower back. Location: Lower back Left Sacroiliac joint Quality: Shooting, aching, throbbing Duration: Years NSAIDs? Celebrex, Gabapentin Analgesics? Tylenol Other pain modalities? No Physical therapy? previously Xrays? 06/10/2022 lumbar MRI? 05/18/2022 lumbar Patient activity (i.e. Job, sport, etc.): unemployed Treatment performed or prescribed at last visit? 08/14/2022 Sports US guided left sacroiliac joint injection Response to treatment since last visit? Patient states that overall injection helped up until about a week ago. Patient states now she has pain across her whole lower back. Current Outpatient Medications: Celecoxib 200 MG capsule, Take 1 capsule by mouth 2 times daily., Disp: , Rfl: Dicyclomine 20 MG tablet, Take 1 tablet by mouth every 6 hours. 3 times per day, Disp: , Rfl: ferrous sulfate 325 (65 Fe) MG tablet, Take 1 tablet by mouth 3 times daily with meals., Disp: , Rfl: Gabapentin 300 MG capsule, Take 1 capsule by mouth 3 times daily., Disp: , Rfl: metFORMIN 500 MG tablet, Take 2 tablets by mouth 2 times daily with meals., Disp: , Rfl: Montelukast (Singulair) 10 MG tablet, Take 1 tablet by mouth daily., Disp: , Rfl: Pantoprazole Sodium (PROTONIX PO), Take 20 mg by mouth. 2 times daily, Disp: , Rfl: PARoxetine 20 MG tablet, Take 1.5 tablets by mouth daily. 30 mg, Disp: , Rfl: Turmeric (QC Tumeric Complex) 500 MG capsule, Take by mouth., Disp: , Rfl: Verapamil 240 MG Tab CR, Take 1 tablet by mouth daily., Disp: , Rfl: Family History Problem Relation Age of Onset Depression Mother Hypertension Mother Anxiety Disorder Mother Diabetes Father Depression Father Anxiety Disorder Father Hypertension Father Social History Tobacco Use Smoking status: Never Smokeless tobacco: Never Substance Use Topics Alcohol use: Not Currently Drug use: Never Past Surgical History: Procedure Laterality Date REMOVAL BILIARY DUCT/GALLBLADDER CALCULI/DEBRIS PERCUTANEOUS W/ IMAGE 2009 HERNIA REPAIR Vitals: 10/23/22 1242 Weight: (!) 166.9 kg (367 lb 15.2 oz) Height: 1.676 m (5' 6 ) Constitutional No fevers, chills or sweats, unintentional weight gain or weight loss, night pain, or night sweats except as per HPI. Cardiovascular No recent chest pain or palpitations. No claudication. No new or worsening lower extremity edema except as per HPI. Respiratory No new or worsening shortness of breath, dyspnea on exertion, orthopnea or paroxysmal nocturnal dyspnea except as per HPI. Gastrointestinal No recent heartburn or stomach upset, no history of ulcers except as per HPI. Musculoskeletal No joint pain, stiffness, or weakness except as per HPI. Endocrine No polyphagia, polydypsia, or polyuria. Hematologic No known or recent anemia, no excessive bleeding. Rheumatologic No history or currently active autoimmune or rheumatologic disease except as per HPI. Integumentary No new or relevant rashes or lesions except as per HPI. Neurologic No numbness, tingling, or weakness into her distal extremities except as per HPI. Constitutional Normal No acute distress. Well nourished. Well developed. Head/Face Normal Facial features - Normal. Eyebrows - Normal. Skull - Normal. Hair and scalp - Normal. Eyes Normal General - Right: Normal, Left: Normal. Lids/external - Right: Normal, Left: Normal. Conjunctiva - Right: Normal, Left: Normal. Ears Normal Inspection - Right: Normal, Left: Normal. Pinna - Right: Normal, Left: Normal. Nasopharynx Normal External nose - Normal. Nares - Right: Normal. Nasal Mucosa - Normal. Lips/teeth/gums - Normal. Buccal mucosa - Normal. Neck Exam Normal Inspection - Normal. Range of motion - Normal. Neck Exam Comments Supple. Respiratory Normal Inspection - Normal. Cough - Absent. Effort - Normal. Cardiovascular Normal Heart rate - Regular rate. Vascular Normal Pulses - Radial: Normal, Brachial: Normal, Dorsalis pedis: Normal, Posterior tibial: Normal. Capillary refill - Less than 2 seconds. Skin * Rash - Description: none. Extremity Normal No Edema. No Calf tenderness. Diabetic Foot Screen Normal Pulses - Dorsalis pedis: Normal, Posterior tibial: Normal. Neurological Normal Level of consciousness - Normal. Orientation - Normal. Memory - Normal. Psychiatric Normal No agitation. Appropriate mood and affect. Appropriate affect. Normal insight. Normal judgment. Interval exam: Lumbar Spine Inspection: No erythema, ecchymosis, swelling or deformity. No open wounds. NVID Left hip Inspection: No erythema, ecchymosis, swelling or deformity. No open wounds. NVID Bilateral hip xray reviewed from 2022 Lumbar spine xray reviewed from 06/10/[address] Hemphill 08/14/2022,08/13/2022 History obtained from patient. ASSESSMENT and PLAN: 1. Osteoarthritis of both sacroiliac joints 2. Pain of both sacroiliac joints 3. Pain of left hip Sarah's response was decent at 5-6 weeks, but not long enough. We feel confident we have identified the man pain generator. Discussed next steps including REILLY, PRP and surgery . She would like to avoid surgery. Rx sent for Ellen to [facility]. Sarah may call the office with any questions or concerns. Referrals: None Medications prescribed today: Supartz to [facility] in [place] Follow up plan: Sports US guided left sacroiliac joint injection with Supartz and [employer]N H93860, Dex J8540, Tri J3490 Severity of problem(s): Mild Risk of morbidity or complication from the condition and/or additional testing or treatment: Low LARGE JOINT/BURSA INJECTION AND/OR ASPIRATION: L greater trochanteric bursa Date/Time: 10/23/2022 1:00 PM Performed by: Keila Hemphill MD Authorized by: Keila Hemphill MD Supporting Documentation Indications: pain Procedure Details: Location: hip - L greater trochanteric bursa Needle size: 22 G Approach: lateral Medication Verification: I have personally verified and performed the final check of the medication(s) used in this procedure prior to administration. The following items were included during the verification process for medication(s) administered: drug name, strength, volume, expiration, physical integrity and appearance of the medication(s). Medications administered: 2 mL triamcinolone 40 MG/ML; 1 mL lidocaine 10 mg/mL; 1 mL bupivacaine 0.5 %; 4 mg dexAMETHasone 4 MG/ML Patient tolerance: patient tolerated the procedure well with no immediate complications Comments Medical Decision Making At today's visit I reviewed the history, physical examination, and previous pertinent imaging. We weighed the options of whether or not to proceed with an injection today based off of these findings and discussed alternatives. After this discussion, I felt that the injection was indicated and we elected to proceed. This evaluation and management service was a separate and identifiable service apart from the injection. Pre-Procedure Details The attending physician was present for the entire procedure. Consent: Consent was obtained prior to the procedure after discussion of the risks, benefits and alternatives, and expected outcomes were discussed with the patient. The possibilities of reaction to medication, bleeding, infection, the need for additional procedures, failure to diagnosis a condition, and creating a complication requiring operation were discussed with the patient. The patient concurred with the proposed plan, giving consent. Preparation: Patient was prepped in the usual sterile fashion. The patient was prepped with alcohol. Patient counseled on expected outcome and continued treatment and healing process. Patient tolerated the procedure well and was discharged in good condition with post-procedure instructions and anticipatory guidance regarding possible adverse reactions after the procedure including but not limited to infection, injection site flare reaction, allergic reaction. If corticosteroids were used then specifically the patient may develop hyperglycemia, facial flushing, heart palpitations amongst many other side effects associated with corticosteroids. I have reviewed, edited and added to the above note and agree with those findings. Additions if any: Keila Hemphill MD, CAQSM [facility] documented in this encounter [facility] 10-23-2022 Instructions Papa Prater - 10/23/2022 1:00 PM EDT Patient counseled on expected outcome and continued treatment and healing process. Patient tolerated the procedure well and was discharged in good condition with post-procedure instructions and anticipatory guidance regarding possible adverse reactions after the procedure including but not limited to infection, injection site flare reaction, allergic reaction. If corticosteroids were used then specifically the patient may develop hyperglycemia, facial flushing, heart palpitations amongst many other side effects associated with corticosteroids. documented in this encounter [facility] 09-23-2022 Hospital Discharge instructions Kelley Shannon DO - 09/23/2022 1:19 PM EDT Take the antibiotic as prescribed. Follow-up with your doctor next week. Return if you have any worsening symptoms. Drink plenty of fluids. If you have any concerns or questions regarding your care today, please discuss with your nurse or physician prior to leaving the emergency department. Thank you for allowing us to take care of you at [facility]. In the next few days you may receive a survey by mail or e-mail asking about the care you received during this visit. Please complete this if you are able, as this feedback helps us provide the best care possible. The following attachments cannot be sent through Care Everywhere.Pneumonia ([place])documented in this encounter [facility] Work Phone: 09-09-2022 Hospital course Narrative Discussed with the patient and all questioned fully answered. She will call me if any problems arise. IV removed. Educated on how to empty J/P bulb and to keep track of output. Patient wheeled off unit by [facility]. documented in this encounter [facility] Work Phone: 09-09-2022 History of Present illness Narrative Gynecology Oncology Progress Note Sarah Harris is a 47 y.o. female , POD # 1 s/p RALH, BSO, Lysis of Adhesions, Cystoscopy Patient seen and examined. Pain is controlled. Patient is tolerating oral intake. She is urinating well. She denies any heavy vaginal bleeding. She is ambulating. She is passing flatus. JAMARI drain with serosanguinous fluid. She denies Fever/Chills, Chest Pain, SOB, N/V, Calf Pain. Vitals: Vitals: 09/08/22201209/08/22 2104 09/09/22 0045 09/09/22 0353 BP: 126/78 130/82 (!) 140/78 Pulse: 89 88 89 Resp: 19 18 17 18 Temp: 98.1 F (36.7 C) 97.9 F (36.6 C) 97.5 F (36.4 C) TempSrc: Oral Oral Oral SpO2: 95% 96% 94% Weight: Height: Intake/Output: Last Shift: I/O last 3 completed shifts: In: 2431.2 [I.V.:2431.2] Out: 3480 [Urine:3225; Drains:155; Blood:100] Current Shift: No intake/output data recorded. 1650 mL in the last 12 hrs of clear UOP ~137mL/hr Physical Exam: General: Alert and oriented, no acute distress HEENT: normocephalic, atraumatic, supple, symmetrical, trachea midline, Pupils equal and reactive to light, Extraocular muscles intact, sclera non icteric Respiratory: Good air movement bilaterally, unlabored respirations, no wheezes or rhonchi Cardiovascular: Regular rate and rhythm, no murmurs rubs or gallops Abdomen: soft, non tender, non distended, no rebound, guarding, or rigidity, bowel sounds present Incisions: clean, dry, and intact, JAMARI drain in place with serosanguinous fluid noted Extremities: No LE edema, no calf tenderness or swelling, EPC not on as patient sitting in chair Psych: affect appropriate Lab: Recent Results (from the past 24 hour(s)) POC Glucose Fingerstick Collection Time: 09/08/22 11:25 AM Result Value Ref Range POC Glucose 192 (H) 65 - 105 mg/dL POC Glucose Fingerstick Collection Time: 09/08/22 1:08 PM Result Value Ref Range POC Glucose 207 (H) 65 - 105 mg/dL POC Glucose Fingerstick Collection Time: 09/08/22 5:06 PM Result Value Ref Range POC Glucose 192 (H) 65 - 105 mg/dL POC Glucose Fingerstick Collection Time: 09/08/22 8:25 PM Result Value Ref Range POC Glucose 228 (H) 65 - 105 mg/dL CBC with Auto Differential Collection Time: 09/09/22 6:59 AM Result Value Ref Range WBC 9.6 3.5 - 11.3 k/uL RBC 4.36 3.95 - 5.11 m/uL Hemoglobin 11.7 (L) 11.9 - 15.1 g/dL Hematocrit 38.0 36.3 - 47.1 % MCV 87.2 82.6 - 102.9 fL MCH 26.8 25.2 - 33.5 pg MCHC 30.8 28.4 - 34.8 g/dL RDW 15.1 (H) 11.8 - 14.4 % Platelets 250 138 - 453 k/uL MPV 9.5 8.1 - 13.5 fL NRBC Automated 0.0 0.0 per 100 WBC Seg Neutrophils 75 (H) 36 - 65 % Lymphocytes 16 (L) 24 - 43 % Monocytes 9 3 - 12 % Eosinophils % 0 (L) 1 - 4 % Basophils 0 0 - 2 % Immature Granulocytes 0 0 % Segs Absolute 7.09 1.50 - 8.10 k/uL Absolute Lymph # 1.55 1.10 - 3.70 k/uL Absolute [place] # 0.84 0.10 - 1.20 k/uL Absolute Eos # 0.04 0.00 - 0.44 k/uL Basophils Absolute 0.04 0.00 - 0.20 k/uL Absolute Immature Granulocyte 0.04 0.00 - 0.30 k/uL RBC Morphology ANISOCYTOSIS PRESENT Assessment/Plan: Sarah Harris 47 y.o. female , POD #1 s/p RALH, BSO, Lysis of Adhesions, Cystoscopy - Doing well, vitals stable - Patient voiding spontaneously, UOP appropriate - IVF: NS @125ml/h- will saline lock this AM - Pain control: Celebrex/Tylenol/Roxicodone - Gabapentin 300mg qHS - Labs: CBC this AM stable, hgb 11.7 - DVT Proph:Lovenox 40mg BID - Abx: S/p Ancef 3g intraop - Diet: Carb Control Diet - Senokot-S BID, Millk of Mag daily - Vitals, I&O q4h - Zofran/Compazine/Simethicone PRN - JAMARI drain 130 over 12 hours, will remain in place - Encourage ambulation and use of incentive spirometer - Continue home medications - Path: pending - Patient meeting postop milestones, will plan for discharge today with close outpatient follow up. Patient JAMARI drain will remain in place with plan for outpatient appointment in 7-14 days. Type 2 Diabetes - On Metformin 1000mg BID, restart on discharge - AC/HS sugars with sliding scale ordered Hypertension - Verapamil 240mg XR ordered, will hold if BP decreases - Vitals overnight stable, occasional elevated BP Anxiety/Depression - Mood stable, continue Paxil 30mg daily GERD - Protonix 40mg BID ordered Principal Problem: Pelvic mass Active Problems: Essential hypertension, benign Arthritis of left knee Hiatal hernia GERD (gastroesophageal reflux disease) Anxiety and depression Type 2 diabetes mellitus without complication, without long-term current use of insulin (HCC) Osteoarthritis of right knee RALH, BSO, MAILE, Cysto 09/08/22 Resolved Problems: * No resolved hospital problems. * Attending: Dr. Campos Please perfectserve the resident named below with questions and concerns. Ashwin Zapata DO OBGYN Resident Pgr: [phone] 09/09/2022, 7:58 AM [employer] Oncology Attending Note Patient seen and evaluated by me today Chart notes records labs revd by me in detail today All questions answered to her satisfaction today Surgical plan of care revd All serious risks and downstream consequences explained again to her and her She tells me that she fully understands and accepts the serious risks and downstream consequences of the planned procedures today She tells me that all questions are answered to her satisfaction again today Proceed to OR today as scheduled CV Beth NOBLE Spoke with Juani at Dr. Campos's office. Informed that pt has been taking Celebrex 200 mg BID with most recent dose this a.m. States that she will inform Dr. Campos. documented in this encounter [facility] [employer] Phone: 09-08-2022 Evaluation note Diagnosis Pelvic mass- Primary Abdominal or pelvic swelling, mass or lump, unspecified site S/p RALH, BSO 09/08/22 Other postprocedural status Post endometrial ablation syndrome Pelvic pain in female Unspecified symptom associated with female genital organs RALH, BSO, MAILE, Cysto 09/08/22 Other postprocedural status Essential hypertension, benign Arthritis of left knee Unspecified arthropathy, lower leg GERD (gastroesophageal reflux disease) Esophageal reflux Anxiety and depression Dysthymic disorder Type 2 diabetes mellitus without complication, without long-term current use of insulin (HCC) Osteoarthritis of right knee Osteoarthrosis, unspecified whether generalized or localized, lower leg Hiatal hernia Diaphragmatic hernia without mention of obstruction or gangrene documented in this encounter [facility] [employer] Phone: [phone] History of Present illness Narrative* Dayanna Springer, PT - 08/17/2022 9:00 AM EDT Images from the original note were not included. [facility] Outpatient Physical Therapy Daily Note Date: 08/17/2022 Patient Name: Sarah Harris : 1975 (47 y.o.) Referring Provider (secondary): Dr Elliot Zheng Diagnosis: M46.1- sacroilitis;M47,26 Lumbar spondylosis with radiculopathy Treatment Diagnosis: Back Pain Onset Date: 06/16/22 PT Insurance Information: [id number] Total # of Visits Approved: 12 Per Physician Order Total # of Visits to Date: 8 Canceled Appointment: 1 Plan of Care/Certification Expiration Date: 08/31/22 Pre-Treatment Pain: 1/10 Assessment Assessment: Patient reports Dr gave her spinal injection last week. Pain 1/10 back, 0/10 in leg. Completed therex and traction per Doc Flow. Reviewed HEP and issued second handout. Patient ROM WFL, BLE strength WFL. Plan to hold PT, patient to call if pain returns. Plan Place pt on hold Exercises/Modalities/Manual: See DocFlow Sheet Education: On HEP Access Code: [email or web address] URL: [email or web address] Date: 08/17/2022 Prepared by: Dayanna Springer Exercises Plank on Knees - 1 x daily - 7 x weekly - 10 reps - 10 hold Prone Hip Extension - 1 x daily - 7 x weekly - 2 sets - 10 reps Goals (Total # of Visits to Date: 8) Short Term Goals Time Frame for Short Term Goals: 8 Short Term Goal 1: Patient to be independent with HEP for core strengthening-Met Short Term Goal 2: Decrease radicular symptoms in R leg by 50%-not met Short Term Goal 3: Decrease pain low back 4/10 at worst x3 days-not met Care Home Goals Time Frame for Medical Records Assistant Goals : 12 Care Home Goal 1: Decrease pain low back 2/10 at worst x3 days-Met Care Home Goal 2: Improved functional mobility with Oswestry score <10/45-Met Post Treatment Pain: 0/10 Time In: 8:50 Time Out : 9:30 Timed Code Treatment Minutes: 22 Minutes Total Treatment Time: 40 Minutes Dayanna Springer PT Date: 08/17/2022 * Dayanna Springer PT - 08/17/2022 9:00 AM EDT Images from the original note were not included. [facility] Outpatient Physical Therapy Progress Report Date: 08/17/2022 Patient: Sarah Harris : 1975 Referring Provider (secondary): Dr Elliot Zheng Diagnosis: M46.1- sacroilitis;M47,26 Lumbar spondylosis with radiculopathy Treatment Diagnosis: Back Pain Onset Date: 06/16/22 PT Insurance Information: [id number] Total # of Visits Approved: 12 Per Physician Order Total # of Visits to Date: 8 Canceled Appointment: 1 Assessment Assessment: Patient reports gave her spinal injection last week. Pain 1/10 back, 0/10 in leg. Completed therex and traction per Doc Flow. Reviewed HEP and issued second handout. Patient ROM WFL, BLE strength WFL. Plan to hold PT, patient to call if pain returns. Therapy Prognosis: Good Plan Place pt on hold Goals Short Term Goals Time Frame for Short Term Goals: 8 Short Term Goal 1: Patient to be independent with HEP for core strengthening-Met Short Term Goal 2: Decrease radicular symptoms in R leg by 50%-not met Short Term Goal 3: Decrease pain low back 4/10 at worst x3 days-not met Medical Records Assistant Goals Time Frame for Medical Records Assistant Goals : 12 Care Home Goal 1: Decrease pain low back 2/10 at worst x3 days-Met Medical Records Assistant Goal 2: Improved functional mobility with Oswestry score <10/45-Met Dayanna Springer, PT Date: 08/17/2022 [facility] [employer] Work Phone: [phone] 475-825303-17-2023 History of Present illness Narrative* Jenny Gracia - 08/14/2022 12:40 PM EDT The patient is in today for her L SI joint injection. She states her pain is an ache. At her last visit yesterday she was scheduled for today for a US guided injection. She states her pain came back 3 days later after her bilateral lumbar paraspinal and she is experiencing pinching in both of her SI joints occasionally when she is walking . She states her pain is a 5/10 in the office and a 7-8/10when she is active. * Jose London, ATC - 08/14/2022 12:40 PM EDTAssociated Order(s): LARGE JOINT/BURSA INJECTION AND/OR ASPIRATION Post-Procedure Diagnose(s): Osteoarthritis of both sacroiliac joints; Pain of both sacroiliac joints LARGE JOINT/BURSA INJECTION AND/OR ASPIRATION Date/Time: 08/14/2022 12:40 PM Supporting Documentation Indications: pain and osteoarthritis Procedure Details: Location: sacroiliac - L sacroiliac joint Local Anesthetic: bupivacaine 0.5% and lidocaine 1% Total Local Anesthetic: 4 mLs Guidance: ultrasound Ultrasound probe size: 4 mHz curvilinear Images were saved electronically. Needle size: 22 G Needle Length: 4.0 inch Approach: posterior Medication Verification: I have personally verified and performed the final check of the medication(s) used in this procedure prior to administration. The following items were included during the verification process for medication(s) administered: drug name, strength, volume, expiration, physical integrity and appearance of the medication(s). Medications administered: 1 mL bupivacaine 0.5 %; 2 mL triamcinolone 40 MG/ML; 4 mL lidocaine 10 mg/mL; 5 mL sodium chloride (PF) 0.9 % Patient tolerance: patient tolerated the procedure well with no immediate complications Pre-Procedure Details The attending physician was present for the entire procedure. Consent: Consent was obtained prior to the procedure after discussion of the risks, benefits and alternatives, and expected outcomes were discussed with the patient. The possibilities of reaction to medication, bleeding, infection, the need for additional procedures, failure to diagnosis a condition, and creating a complication requiring operation were discussed with the patient. The patient concurred with the proposed plan, giving consent. Preparation: Patient was prepped in the usual sterile fashion. The patient was prepped with Chloraprep. Medical Decision Making At today's visit I reviewed the history, physical examination, and previous pertinent imaging. We weighed the options of whether or not to proceed with an injection today based off of these findings and discussed alternatives. After this discussion, I felt that the injection was indicated and we elected to proceed. This evaluation and management service was a separate and identifiable service apart from the injection. Patient counseled on expected outcome and continued treatment and healing process. Patient tolerated the procedure well and was discharged in good condition with post-procedure instructions and anticipatory guidance regarding possible adverse reactions after the procedure including but not limited to infection, injection site flare reaction, allergic reaction. If corticosteroids were used then specifically the patient may develop hyperglycemia, facial flushing, heart palpitations amongst many other side effects associated with corticosteroids. Patient reports 100% pain relief while anesthestized. * Keila Hemphill MD - 08/14/2022 12:40 PM EDT The patient is in today for her L SI joint injection. She states her pain is an ache. At her last visit yesterday she was scheduled for today for a US guided injection. She states her pain came back 3 days later after her bilateral lumbar paraspinal and she is experiencing pinching in both of her SI joints occasionally when she is walking . She states her pain is a 5/10 in the office and a 7-8/10when she is active. LARGE JOINT/BURSA INJECTION AND/OR ASPIRATION Date/Time: 08/14/2022 12:40 PM Supporting Documentation Indications: pain and osteoarthritis Procedure Details: Location: sacroiliac - L sacroiliac joint Local Anesthetic: bupivacaine 0.5% and lidocaine 1% Total Local Anesthetic: 4 mLs Guidance: ultrasound Ultrasound probe size: 4 mHz curvilinear Images were saved electronically. Needle size: 22 G Needle Length: 4.0 inch Approach: posterior Medication Verification: I have personally verified and performed the final check of the medication(s) used in this procedure prior to administration. The following items were included during the verification process for medication(s) administered: drug name, strength, volume, expiration, physical integrity and appearance of the medication(s). Medications administered: 1 mL bupivacaine 0.5 %; 2 mL triamcinolone 40 MG/ML; 4 mL lidocaine 10 mg/mL; 5 mL sodium chloride (PF) 0.9 % Patient tolerance: patient tolerated the procedure well with no immediate complications Pre-Procedure Details The attending physician was present for the entire procedure. Consent: Consent was obtained prior to the procedure after discussion of the risks, benefits and alternatives, and expected outcomes were discussed with the patient. The possibilities of reaction to medication, bleeding, infection, the need for additional procedures, failure to diagnosis a condition, and creating a complication requiring operation were discussed with the patient. The patient concurred with the proposed plan, giving consent. Preparation: Patient was prepped in the usual sterile fashion. The patient was prepped with Chloraprep. Medical Decision Making At today's visit I reviewed the history, physical examination, and previous pertinent imaging. We weighed the options of whether or not to proceed with an injection today based off of these findings and discussed alternatives. After this discussion, I felt that the injection was indicated and we elected to proceed. This evaluation and management service was a separate and identifiable service apart from the injection. Patient counseled on expected outcome and continued treatment and healing process. Patient tolerated the procedure well and was discharged in good condition with post-procedure instructions and anticipatory guidance regarding possible adverse reactions after the procedure including but not limited to infection, injection site flare reaction, allergic reaction. If corticosteroids were used then specifically the patient may develop hyperglycemia, facial flushing, heart palpitations amongst many other side effects associated with corticosteroids. Patient reports 100% pain relief while anesthestized. I have reviewed, edited and added to the above note and agree with those findings. Additions if any: Keila Hemphill MD, [facility] Orthopedics and Sports Medicine [employer] [facility] Health [facility] History of Present illness Narrative* Jenny Fagan - 08/13/2022 8:30 AM EDT Referred by: MD Luis Alberto Chief Complaint Patient presents with Lower Back - Pain, Follow-up The patient is in today for her bilateral SI joints. She states her pain is a dull ache, sharp withmoving wrong, tingling down to her bilateral knees, weakness, and pinching occ. She states she is still having trouble standing and walking for long periods of time. She states the occasional pinching when she is walking cause her to call and make today's appointment. At her last visit on 06/23/22 she recieved bilateral lumbar paraspinals and was scheduled for a L SI joint possible injection on 09/25/22. She states her pain came back 3 weeks later and she is experiencing pinching in both of her SI joints occasionally when she is walking .She states she may have to cancel her US guided injectionon September 25 because she is having total hysterectomy surgery on September 08. She also states she is currently attending PT prescribed by . She states that the therapy is helping and she is going to PT later today and will provide them with updates from her appointment today. She states her pain is a 5/10 in the office and an 8/10 when she is active. Location: Bilateral SI joints and lumbar steinosis Quality: dull ache, sharp-moving wrong way, tingling down to bilateral knees, weakness, pinching occ Duration: years but getting worse NSAIDs? Celebrex, Gabapentin Analgesics? no Other pain modalities? no Physical therapy? Currently Xrays? 06/10/22 lumbar and 06/16/22 bilateral hips with pelvis MRI? 05/18/22 lumbar Patient occupation, sport or other pertinent activity: unemployed and trying to get disability. Treatment performed or prescribed at last visit? 06/23/22 bilateral lumbar paraspinals and was scheduled for a possible L SI joint injection on 09/25/22. Response to treatment since last visit? She states her pain came back 3 days later and she is experiencing pinching in both of her SI joints occasionally when she is walking .She may have to cancel her US guided injection on September 25 because she is having total hysterectomy surgery on September 08. Current Outpatient Medications: Celecoxib 200 MG capsule, Take 1 capsule by mouth 2 times daily., Disp: , Rfl: Dicyclomine 20 MG tablet, Take 1 tablet by mouth every 6 hours. 3 times per day, Disp: , Rfl: ferrous sulfate 325 (65 Fe) MG tablet, Take 1 tablet by mouth 3 times daily with meals., Disp: , Rfl: Gabapentin 300 MG capsule, Take 1 capsule by mouth 3 times daily., Disp: , Rfl: metFORMIN 500 MG tablet, Take 2 tablets by mouth 2 times daily with meals., Disp: , Rfl: Montelukast (Singulair) 10 MG tablet, Take 1 tablet by mouth daily., Disp: , Rfl: Pantoprazole Sodium (PROTONIX PO), Take 20 mg by mouth. 2 times daily, Disp: , Rfl: PARoxetine 20 MG tablet, Take 1.5 tablets by mouth daily. 30 mg, Disp: , Rfl: Turmeric (QC Tumeric Complex) 500 MG capsule, Take by mouth., Disp: , Rfl: Verapamil 240 MG Tab CR, Take 1 tablet by mouth daily., Disp: , Rfl: Family History Problem Relation Age of Onset Depression Mother Hypertension Mother Anxiety Disorder Mother Diabetes Father Depression Father Anxiety Disorder Father Hypertension Father Social History Tobacco Use Smoking status: Never Smokeless tobacco: Never Substance Use Topics Alcohol use: Not Currently Drug use: Never Past Surgical History: Procedure Laterality Date REMOVAL BILIARY DUCT/GALLBLADDER CALCULI/DEBRIS PERCUTANEOUS W/ IMAGE 2008 HERNIA REPAIR Vitals: 08/13/22 0930 Weight: (!) 166.9 kg (368 lb) Height: 1.676 m (5' 6 ) Constitutional No fevers, chills or sweats, unintentional weight gain or weight loss, night pain, or night sweats except as per HPI. Cardiovascular No recent chest pain or palpitations. No claudication. No new or worsening lower extremity edema except as per HPI. Respiratory No new or worsening shortness of breath, dyspnea on exertion, orthopnea or paroxysmal nocturnal dyspnea except as per HPI. Gastrointestinal No recent heartburn or stomach upset, no history of ulcers except as per HPI. Musculoskeletal No joint pain, stiffness, or weakness except as per HPI. Endocrine No polyphagia, polydypsia, or polyuria. Hematologic No known or recent anemia, no excessive bleeding. Rheumatologic No history or currently active autoimmune or rheumatologic disease except as per HPI. Integumentary No new or relevant rashes or lesions except as per HPI. Neurologic No numbness, tingling, or weakness into her distal extremities except as per HPI. Constitutional Normal No acute distress. Well nourished. Well developed. Head/Face Normal Facial features - Normal. Eyebrows - Normal. Skull - Normal. Hair and scalp - Normal. Eyes Normal General - Right: Normal, Left: Normal. Lids/external - Right: Normal, Left: Normal. Conjunctiva - Right: Normal, Left: Normal. Ears Normal Inspection - Right: Normal, Left: Normal. Pinna - Right: Normal, Left: Normal. Nasopharynx Normal External nose - Normal. Nares - Right: Normal. Nasal Mucosa - Normal. Lips/teeth/gums - Normal. Buccal mucosa - Normal. Neck Exam Normal Inspection - Normal. Range of motion - Normal. Neck Exam Comments Supple. Respiratory Normal Inspection - Normal. Cough - Absent. Effort - Normal. Cardiovascular Normal Heart rate - Regular rate. Vascular Normal Pulses - Radial: Normal, Brachial: Normal, Dorsalis pedis: Normal, Posterior tibial: Normal. Capillary refill - Less than 2 seconds. Skin * Rash - Description: none. Extremity Normal No Edema. No Calf tenderness. Diabetic Foot Screen Normal Pulses - Dorsalis pedis: Normal, Posterior tibial: Normal. Neurological Normal Level of consciousness - Normal. Orientation - Normal. Memory - Normal. Psychiatric Normal No agitation. Appropriate mood and affect. Appropriate affect. Normal insight. Normal judgment. * Jose London ATC - 08/13/2022 8:30 AM EDT Lumbar spine Inspection: No erythema, ecchymosis, swelling or deformity. No open wounds. NVID XR lumbar spine reviewed from 06/10/22 Notes reviewed from 08/14/22, 08/13/22 History obtained from patient. ASSESSMENT and PLAN: 1. Osteoarthritis of both sacroiliac joints 2. Pain of both sacroiliac joints Sarah did not respond well to the lumbar paraspinal trigger point injection from last time. We elected ti move forward with scheduling a left sacroiliac joint injection using the US for guidance. She may call with any questions or concerns. Referrals: None Medications prescribed today: None Follow up plan: Sports US guided left sacroiliac joint injection J1100, J3301 Severity of problem(s): mild Risk of morbidity or complication from the condition and/or additional testing or treatment: low * Keila Hemphill MD - 08/13/2022 8:30 AM EDT Referred by: MD Luis Alberto Chief Complaint Patient presents with Lower Back - Pain, Follow-up The patient is in today for her bilateral SI joints. She states her pain is a dull ache, sharp withmoving wrong, tingling down to her bilateral knees, weakness, and pinching occ. She states she is still having trouble standing and walking for long periods of time. She states the occasional pinching when she is walking cause her to call and make today's appointment. At her last visit on 06/23/22 she recieved bilateral lumbar paraspinals and was scheduled for a L SI joint possible injection on 09/25/22. She states her pain came back 3 weeks later and she is experiencing pinching in both of her SI joints occasionally when she is walking .She states she may have to cancel her US guided injectionon September 25 because she is having total hysterectomy surgery on September 08. She also states she is currently attending PT prescribed by . She states that the therapy is helping and she is going to PT later today and will provide them with updates from her appointment today. She states her pain is a 5/10 in the office and an 8/10 when she is active. Location: Bilateral SI joints and lumbar steinosis Quality: dull ache, sharp-moving wrong way, tingling down to bilateral knees, weakness, pinching occ Duration: years but getting worse NSAIDs? Celebrex, Gabapentin Analgesics? no Other pain modalities? no Physical therapy? Currently Xrays? 06/10/22 lumbar and 06/16/22 bilateral hips with pelvis MRI? 05/18/22 lumbar Patient occupation, sport or other pertinent activity: unemployed and trying to get disability. Treatment performed or prescribed at last visit? 06/23/22 bilateral lumbar paraspinals and was scheduled for a possible L SI joint injection on 09/25/22. Response to treatment since last visit? She states her pain came back 3 days later and she is experiencing pinching in both of her SI joints occasionally when she is walking .She may have to cancel her US guided injection on September 25 because she is having total hysterectomy surgery on September 08. Current Outpatient Medications: Celecoxib 200 MG capsule, Take 1 capsule by mouth 2 times daily., Disp: , Rfl: Dicyclomine 20 MG tablet, Take 1 tablet by mouth every 6 hours. 3 times per day, Disp: , Rfl: ferrous sulfate 325 (65 Fe) MG tablet, Take 1 tablet by mouth 3 times daily with meals., Disp: , Rfl: Gabapentin 300 MG capsule, Take 1 capsule by mouth 3 times daily., Disp: , Rfl: metFORMIN 500 MG tablet, Take 2 tablets by mouth 2 times daily with meals., Disp: , Rfl: Montelukast (Singulair) 10 MG tablet, Take 1 tablet by mouth daily., Disp: , Rfl: Pantoprazole Sodium (PROTONIX PO), Take 20 mg by mouth. 2 times daily, Disp: , Rfl: PARoxetine 20 MG tablet, Take 1.5 tablets by mouth daily. 30 mg, Disp: , Rfl: Turmeric (QC Tumeric Complex) 500 MG capsule, Take by mouth., Disp: , Rfl: Verapamil 240 MG Tab CR, Take 1 tablet by mouth daily., Disp: , Rfl: Family History Problem Relation Age of Onset Depression Mother Hypertension Mother Anxiety Disorder Mother Diabetes Father Depression Father Anxiety Disorder Father Hypertension Father Social History Tobacco Use Smoking status: Never Smokeless tobacco: Never Substance Use Topics Alcohol use: Not Currently Drug use: Never Past Surgical History: Procedure Laterality Date REMOVAL BILIARY DUCT/GALLBLADDER CALCULI/DEBRIS PERCUTANEOUS W/ IMAGE 2008 HERNIA REPAIR Vitals: 08/13/22 0930 Weight: (!) 166.9 kg (368 lb) Height: 1.676 m (5' 6 ) Constitutional No fevers, chills or sweats, unintentional weight gain or weight loss, night pain, or night sweats except as per HPI. Cardiovascular No recent chest pain or palpitations. No claudication. No new or worsening lower extremity edema except as per HPI. Respiratory No new or worsening shortness of breath, dyspnea on exertion, orthopnea or paroxysmal nocturnal dyspnea except as per HPI. Gastrointestinal No recent heartburn or stomach upset, no history of ulcers except as per HPI. Musculoskeletal No joint pain, stiffness, or weakness except as per HPI. Endocrine No polyphagia, polydypsia, or polyuria. Hematologic No known or recent anemia, no excessive bleeding. Rheumatologic No history or currently active autoimmune or rheumatologic disease except as per HPI. Integumentary No new or relevant rashes or lesions except as per HPI. Neurologic No numbness, tingling, or weakness into her distal extremities except as per HPI. Constitutional Normal No acute distress. Well nourished. Well developed. Head/Face Normal Facial features - Normal. Eyebrows - Normal. Skull - Normal. Hair and scalp - Normal. Eyes Normal General - Right: Normal, Left: Normal. Lids/external - Right: Normal, Left: Normal. Conjunctiva - Right: Normal, Left: Normal. Ears Normal Inspection - Right: Normal, Left: Normal. Pinna - Right: Normal, Left: Normal. Nasopharynx Normal External nose - Normal. Nares - Right: Normal. Nasal Mucosa - Normal. Lips/teeth/gums - Normal. Buccal mucosa - Normal. Neck Exam Normal Inspection - Normal. Range of motion - Normal. Neck Exam Comments Supple. Respiratory Normal Inspection - Normal. Cough - Absent. Effort - Normal. Cardiovascular Normal Heart rate - Regular rate. Vascular Normal Pulses - Radial: Normal, Brachial: Normal, Dorsalis pedis: Normal, Posterior tibial: Normal. Capillary refill - Less than 2 seconds. Skin * Rash - Description: none. Extremity Normal No Edema. No Calf tenderness. Diabetic Foot Screen Normal Pulses - Dorsalis pedis: Normal, Posterior tibial: Normal. Neurological Normal Level of consciousness - Normal. Orientation - Normal. Memory - Normal. Psychiatric Normal No agitation. Appropriate mood and affect. Appropriate affect. Normal insight. Normal judgment. Lumbar spine Inspection: No erythema, ecchymosis, swelling or deformity. No open wounds. NVID XR lumbar spine reviewed from 06/10/22 Notes reviewed from 08/14/22, 08/13/22 History obtained from patient. ASSESSMENT and PLAN: 1. Osteoarthritis of both sacroiliac joints 2. Pain of both sacroiliac joints Sarah did not respond well to the lumbar paraspinal trigger point injection from last time. We elected ti move forward with scheduling a left sacroiliac joint injection using the US for guidance. She may call with any questions or concerns. Referrals: None Medications prescribed today: None Follow up plan: Sports US guided left sacroiliac joint injection [id number] J1100, J3301 Severity of problem(s): mild Risk of morbidity or complication from the condition and/or additional testing or treatment: low I have reviewed, edited and added to the above note and agree with those findings. Additions if any: Keila Hemphill MD, [facility] Medicine [employer] [facility] documented [facility] this encounterMem[facility] History of Present illness Narrative* Sarah Tony - 08/11/2022 9:00 AM EDT Images from the original note were not included. [facility] Outpatient Physical Therapy Daily Note Date: 08/11/2022 Patient Name: Sarah Harris : 1975 (47 y.o.) Referring Provider (secondary): Dr Elliot Zheng Diagnosis: M46.1- sacroilitis;M47,26 Lumbar spondylosis with radiculopathy Treatment Diagnosis: Back Pain Onset Date: 06/16/22 PT Insurance Information: [employer] Total # of Visits Approved: 12 Per Physician Order Total # of Visits to Date: 6 Canceled Appointment: 1 Plan of Care/Certification Expiration Date: 08/31/22 Pre-Treatment Pain: 5/10 Assessment Assessment: Pt rates pain 5/10. She is pleased with progress. She did her HEP just prior to therapy.Progressed with ex in gym to promote postural strength and flexibility with good abdelrahman. Traction for decompression. Good abdelrahman. to session. Plan Continue with current plan of care Exercises/Modalities/Manual: See DocFlow Sheet Goals (Total # of Visits to Date: 6) Short Term Goals Time Frame for Short Term Goals: 8 Short Term Goal 1: Patient to be independent with HEP for core strengthening-Met Short Term Goal 2: Decrease radicular symptoms in R leg by 50% Short Term Goal 3: Decrease pain low back 4/10 at worst x3 days Care Home Goals Time Frame for Medical Records Assistant Goals : 12 Medical Records Assistant Goal 1: Decrease pain low back 2/10 at worst x3 days Care Home Goal 2: Improved functional mobility with Oswestry score <10/45 Post Treatment Pain: 4/10 Time In: 0900 Time Out : 0940 Timed Code Treatment Minutes: 23 Minutes Total Treatment Time: 38 Minutes 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 [facility] Outpatient Physical Therapy Daily Note Date: 07/28/2022 Patient Name: Sarah Harris : 1975 (47 y.o.) Referring Provider (secondary): Dr Elliot Zheng Diagnosis: M46.1- sacroilitis;M47,26 Lumbar spondylosis with radiculopathy Treatment Diagnosis: Back Pain Onset Date: 06/16/22 PT Insurance Information: BCBS Total # of Visits Approved: 12 Per Physician Order Total # of Visits to Date: 3 Plan of Care/Certification Expiration Date: 08/31/22 Pre-Treatment Pain: 4/10 Assessment Assessment: Patient reports she went to ED yesterday due to abdominal pain and found our she has cyst on ovary. She recieved pain injection. Patient requested to hold prone therex due to this. Completed therex per Doc flow followed by traction per Doc Flow. Reviewed HEP, patient reports compliance.Patient reports she has been trying to walk her dog 15-20 minutes a day for exercise. Continue per plan. Plan Continue with current plan of care Exercises/Modalities/Manual: See DocFlow Sheet Education: Goals (Total # of Visits to Date: 3) Short Term Goals Time Frame for Short Term Goals: 8 Short Term Goal 1: Patient to be independent with HEP for core strengthening-Met Short Term Goal 2: Decrease radicular symptoms in R leg by 50% Short Term Goal 3: Decrease pain low back 4/10 at worst x3 days Medical Records Assistant Goals Time Frame for Medical Records Assistant Goals : 12 Medical Records Assistant Goal 1: Decrease pain low back 2/10 at worst x3 days Medical Records Assistant Goal 2: Improved functional mobility with Oswestry score <10/45 Post Treatment Pain: 4/10 Time In: 8:30 Time Out : 9:05 Timed Code Treatment Minutes: 15 Minutes Total Treatment Time: 35 Minutes Dayanna Springer, PT Date: 07/28/2022 documented in this encounterBON [facility] Work Phone: 1([phone]) 559-825202-22-2023 History of Present illness Narrative* Dayanna Springer, PT - 07/22/2022 9:30 AM EST Images from the original note were not included. [facility] Outpatient Physical Therapy Daily Note Date: 07/22/2022 Patient Name: Sarah Harris : 1975 (47 y.o.) Referring Provider (secondary): Dr Elliot Zheng Diagnosis: M46.1- sacroilitis;M47,26 Lumbar spondylosis with radiculopathy Treatment Diagnosis: Back Pain Onset Date: 06/16/22 PT Insurance Information: BCBS Total # of Visits Approved: 12 Per Physician Order Total # of Visits to Date: 2 Plan of Care/Certification Expiration Date: 08/31/22 Pre-Treatment Pain: 6/10 Assessment Assessment: Pain 6/10 low back and buttocks. Gait slow and antalgic today. Completed therex per DocFlow, emphasis on core strengthening. Lumbar traction with HP per Doc Flow with fair tolerance. Educated on and issued HEP handout on core strengthening. Continue per plan. Plan Continue with current plan of care Exercises/Modalities/Manual: See DocFlow Sheet Education: Goals (Total # of Visits to Date: 2) Short Term Goals Time Frame for Short Term Goals: 8 Short Term Goal 1: Patient to be independent with HEP for core strengthening Short Term Goal 2: Decrease radicular symptoms in R leg by 50% Short Term Goal 3: Decrease pain low back 4/10 at worst x3 days Medical Records Assistant Goals Time Frame for Care Home Goals : 12 Medical Records Assistant Goal 1: Decrease pain low back 2/10 at worst x3 days Care Home Goal 2: Improved functional mobility with Oswestry score <10/45 Post Treatment Pain: 5/10 Time In: 9:30 Time Out : 10:10 Timed Code Treatment Minutes: 20 Minutes Total Treatment Time: 40 Minutes Dayanna Springer, PT Date: 07/22/2022 documented in this encounterBON [facility] Work Phone: [phone]) 487-697602-20-2023 History of Present illness Narrative* Dayanna Springer, PT - 07/20/2022 8:00 AM EST Images from the original note were not included. [facility] Outpatient Physical Therapy Evaluation Date: 07/20/2022 Patient: Sarah Harris : 1975 Referring Provider (secondary): Dr Elliot Zheng Diagnosis: M46.1- sacroilitis;M47,26 Lumbar spondylosis with radiculopathy Treatment Diagnosis: Back Pain Onset Date: 06/16/22 PT Insurance Information: BCBS Total # of Visits Approved: 12 Per Physician Order Total # of Visits to Date: 1 Subjective Additional Pertinent Hx: Patient has had chronic low back pain for at least 10 years. Back pain been worsening over past year. Pain radiates down R leg to f0ot; occassionally pain in left leg. Applying for disability. Pain 5-9/10 in low back and intermittently radiating down R leg.. Can only stand or walk 10 minutes before limited by severe pain. Needs to lean forward on shopping cart when at store to releive pain. 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 Meds- meloton to sleep, celebrex. 06/16/22- had 2 injections one in each SIjoint.MRI- severe spinal stenosis L5. Pain Assessment Pain Level: 5 Pain Location: Back, Buttocks, Leg Pain Orientation: Right, Left Social/Functional History Lives With: Spouse Occupation: Unemployed Objective Spine Lumbar: WFL Joint Mobility Spine: tightness and posture changes (rounding) in thoracic spine Strength RLE Strength RLE: WFL Strength LLE Strength LLE: WFL Additional Measures Special Tests: Oswestry score 19/45 WB Status: antalgic Assessment Body Structures, Functions, Activity Limitations Requiring Skilled Therapeutic Intervention: Decreased functional mobility , Decreased ROM, Increased pain, Decreased posture Assessment: Patient has chronic backpain with radiculopathy from spinal stenosis and SI joint pain. Therapy Prognosis: Good Clinical Presentation: Evolving The Following Comorbities will impact the patient s progression and Plan of Care: Diabetes, Obesity, and Previous Orthopedic Injury/Surgery Medium Complexity Education: On POC Goals Short Term Goals Time Frame for Short Term Goals: 8 Short Term Goal 1: Patient to be independent with HEP for core strengthening Short Term Goal 2: Decrease radicular symptoms in R leg by 50% Short Term Goal 3: Decrease pain low back 4/10 at worst x3 days Medical Records Assistant Goals Time Frame for Care Home Goals : 12 Care Home Goal 1: Decrease pain low back 2/10 at worst x3 days Medical Records Assistant Goal 2: Improved functional mobility with Oswestry score <10/45 Patient's Goal: Be rid of back pain Total Treatment Time: 45 Time In: 8:00 Time Out: 8:45 Dayanna Springer, PT Date: 07/20/2022 documented in this encounterBON [employer] Phone: [phone]) [phone] History of Present illness Narrative* Jenny Fagan - 06/23/2022 7:20 AM EST Referred by: MD Luis Alberto Chief Complaint Patient presents with Lower Back - Pain The patient is in today for her bilateral SI joints and lumbar stenosis. She states her pain is a dull ache, sharp when moving the wrong way, tingling down to bilateral knees, and weakness in her lumbar region and bilateral legs. She states she can only stand for so long and she gets weak and she feels the pain. She states she is taking Celebrex and Gabapentin but they do not really help with herpain. She states she had PT in February and then had hernia surgery in March and has not been back. She states that wants her to go back tomorrow but she does not think it will help because it did not help the first time. She states her pain in the office is a 7/10 and a 10/10 when active. The patient states that she is experiencing some bladder leakage. Location: Bilateral SI joints and lumbar steinosis Quality: dull ache, sharp-moving wrong way, tingling down to bilateral knees, weakness Duration: years but getting worse NSAIDs? Celebrex, Gabapentin Analgesics? no Other pain modalities? no Physical therapy? February Chiropractic? no Injections? no Xrays? 06/10/22 lumbar and 06/16/22 bilateral hips with pelvis MRI? 05/18/22 lumbar Prior lumbar spine surgery?:no Prior hip surgery?:no Bowel or bladder dysfunction? Bladder leakage Numbness or tingling? To bilateral knees Weakness? Lumbar region and bilateral legs Patient occupation, sport or other pertinent activity: unemployed and trying to get disability. No current outpatient medications on file. Family History Problem Relation Age of Onset Depression Mother Hypertension Mother Anxiety Disorder Mother Diabetes Father Depression Father Anxiety Disorder Father Hypertension Father Past Surgical History: Procedure Laterality Date REMOVAL BILIARY DUCT/GALLBLADDER CALCULI/DEBRIS PERCUTANEOUS W/ IMAGE 2008 HERNIA REPAIR Constitutional No fevers, chills or sweats, unintentional weight gain or weight loss, night pain, or night sweats except as per HPI. Cardiovascular No recent chest pain or palpitations. No claudication. No new or worsening lower extremity edema except as per HPI. Respiratory No new or worsening shortness of breath, dyspnea on exertion, orthopnea or paroxysmal nocturnal dyspnea except as per HPI. Gastrointestinal No recent heartburn or stomach upset, no history of ulcers except as per HPI. Musculoskeletal No joint pain, stiffness, or weakness except as per HPI. Endocrine No polyphagia, polydypsia, or polyuria. Hematologic No known or recent anemia, no excessive bleeding. Rheumatologic No history or currently active autoimmune or rheumatologic disease except as per HPI. Integumentary No new or relevant rashes or lesions except as per HPI. Neurologic No numbness, tingling, or weakness into her distal extremities except as per HPI. Constitutional Normal No acute distress. Well nourished. Well developed. Head/Face Normal Facial features - Normal. Eyebrows - Normal. Skull - Normal. Hair and scalp - Normal. Eyes Normal General - Right: Normal, Left: Normal. Lids/external - Right: Normal, Left: Normal. Conjunctiva - Right: Normal, Left: Normal. Ears Normal Inspection - Right: Normal, Left: Normal. Pinna - Right: Normal, Left: Normal. Nasopharynx Normal External nose - Normal. Nares - Right: Normal. Nasal Mucosa - Normal. Lips/teeth/gums - Normal. Buccal mucosa - Normal. Neck Exam Normal Inspection - Normal. Range of motion - Normal. Neck Exam Comments Supple. Respiratory Normal Inspection - Normal. Cough - Absent. Effort - Normal. Cardiovascular Normal Heart rate - Regular rate. Vascular Normal Pulses - Radial: Normal, Brachial: Normal, Dorsalis pedis: Normal, Posterior tibial: Normal. Capillary refill - Less than 2 seconds. Skin * Rash - Description: none. Extremity Normal No Edema. No Calf tenderness. Diabetic Foot Screen Normal Pulses - Dorsalis pedis: Normal, Posterior tibial: Normal. Neurological Normal Level of consciousness - Normal. Orientation - Normal. Memory - Normal. Psychiatric Normal No agitation. Appropriate mood and affect. Appropriate affect. Normal insight. Normal judgment. * Jose London ATC - 06/23/2022 7:20 AM ESTAssociated Order(s): LOWER EXTREMITY INJECTION Lumbar spine Inspection: No erythema, ecchymosis, swelling or deformity. No open wounds. Normal lumbar lordosis.No evidence of marked scoliosis. Palpation: Non-tender to the spinous processes, paraspinals. Tender to bilateral SI joints. ROM: moderate limitation in flexion, extension, lateral bending and rotation. Strength: 5/5 and symmetric bilateral hip flexion, knee flexion/extension, ankle dorsiflexion/plantar flexion and EHL Sensation: Intact and symmetric to soft touch for the bilateral L3-S1 dermatomes. Reflexes: Intact and symmetric bilateral patellar and Achilles. Special Maneuvers: Negative straight leg raise and crossover sign. CAIT Positive NEYDA Positive Vascular: Intact and symmetric dorsalis pedis and posterior tibial pulses. Reviewed: XR lumbar spine 06/10/22 MRI lumbar spine 05/18/22 Independent Interpretation- XR bilateral hips/pelvis 06/16/22 - mild bilateral hip OA, moderate SI joint OA, no acute abnormalities. Notes reviewed from Dr Zheng 06/16/22 History obtained from patient and . ASSESSMENT and PLAN 1. Osteoarthritis of both sacroiliac joints 2. Pain of both sacroiliac joints We elected to move forward with an injection today to the bilateral lumbar spine paraspinal. I would like Sarah to return for a possible left sacroiliac joint injection in the next available appointment spot. She may call with any questions or concerns 3. Other spondylosis with radiculopathy, lumbar region 4. Spinal stenosis, lumbar region with neurogenic claudication Doesn't seem to be the main pain generator. Referrals: none Medications prescribed today: none Follow up plan: Possible left sacroiliac joint injection with US guidance Complexity of problem(s): mild Risk of morbidity from additional testing or treatment: low We discussed the natural history of this problem and usual treatments. We discussed possible treatment options including conservative, aggressive, invasive and non-invasive. These options were explained in detail. The patient and/or guardian agreed with the above assessment and plan. Differential diagnoses of back pain were considered including but not limited to degenerative change, internal derangement, fracture and any other severely limiting injury. LOWER EXTREMITY INJECTION Date/Time: 06/23/2022 7:20 AM Supporting Documentation Indications: pain and therapeutic Procedure Details: Procedure: trigger point injection Location: spine - Trigger Point Injection Details: Bilateral lumbar paraspinal Needle size: 22 G Number of muscles injected: 1-2 muscle groups Medication Verification: I have personally verified and performed the final check of the medication(s) used in this procedure prior to administration. The following items were included during the verification process for medication(s) administered: drug name, strength, volume, expiration, physical integrity and appearance of the medication(s). Medications administered: 1 mL lidocaine 10 mg/mL; 1 mL bupivacaine 0.5 %; 80 mg triamcinolone 40 MG/ML; 4 mg dexAMETHasone 4 MG/ML Patient tolerance: patient tolerated the procedure well with no immediate complications Pre-Procedure Details The attending physician was present for the entire procedure. Consent: Consent was obtained prior to the procedure after discussion of the risks, benefits and alternatives, and expected outcomes were discussed with the patient. The possibilities of reaction to medication, bleeding, infection, the need for additional procedures, failure to diagnosis a condition, and creating a complication requiring operation were discussed with the patient. The patient concurred with the proposed plan, giving consent. Preparation: Patient was prepped in the usual sterile fashion. The patient was prepped with alcohol. Medical Decision Making At today's visit I reviewed the history, physical examination, and previous pertinent imaging. We weighed the options of whether or not to proceed with an injection today based off of these findings and discussed alternatives. After this discussion, I felt that the injection was indicated and we elected to proceed. This evaluation and management service was a separate and identifiable service apart from the injection. Patient counseled on expected outcome and continued treatment and healing process. Patient tolerated the procedure well and was discharged in good condition with post-procedure instructions and anticipatory guidance regarding possible adverse reactions after the procedure including but not limited to infection, injection site flare reaction, allergic reaction. If corticosteroids were used then specifically the patient may develop hyperglycemia, facial flushing, heart palpitations amongst many other side effects associated with corticosteroids. * Keila Hemphill MD - 06/23/2022 7:20 AM EST Referred by: MD Luis Alberto Chief Complaint Patient presents with Lower Back - Pain The patient is in today for her bilateral SI joints and lumbar stenosis. She states her pain is a dull ache, sharp when moving the wrong way, tingling down to bilateral knees, and weakness in her lumbar region and bilateral legs. She states she can only stand for so long and she gets weak and she feels the pain. She states she is taking Celebrex and Gabapentin but they do not really help with herpain. She states she had PT in February and then had hernia surgery in March and has not been back. She states that wants her to go back tomorrow but she does not think it will help because it did not help the first time. She states her pain in the office is a 7/10 and a 10/10 when active. The patient states that she is experiencing some bladder leakage. Location: Bilateral SI joints and lumbar steinosis Quality: dull ache, sharp-moving wrong way, tingling down to bilateral knees, weakness Duration: years but getting worse NSAIDs? Celebrex, Gabapentin Analgesics? no Other pain modalities? no Physical therapy? February Chiropractic? no Injections? no Xrays? 06/10/22 lumbar and 06/16/22 bilateral hips with pelvis MRI? 05/18/22 lumbar Prior lumbar spine surgery?:no Prior hip surgery?:no Bowel or bladder dysfunction? Bladder leakage Numbness or tingling? To bilateral knees Weakness? Lumbar region and bilateral legs Patient occupation, sport or other pertinent activity: unemployed and trying to get disability. No current outpatient medications on file. Family History Problem Relation Age of Onset Depression Mother Hypertension Mother Anxiety Disorder Mother Diabetes Father Depression Father Anxiety Disorder Father Hypertension Father Past Surgical History: Procedure Laterality Date REMOVAL BILIARY DUCT/GALLBLADDER CALCULI/DEBRIS PERCUTANEOUS W/ IMAGE 2008 HERNIA REPAIR Constitutional No fevers, chills or sweats, unintentional weight gain or weight loss, night pain, or night sweats except as per HPI. Cardiovascular No recent chest pain or palpitations. No claudication. No new or worsening lower extremity edema except as per HPI. Respiratory No new or worsening shortness of breath, dyspnea on exertion, orthopnea or paroxysmal nocturnal dyspnea except as per HPI. Gastrointestinal No recent heartburn or stomach upset, no history of ulcers except as per HPI. Musculoskeletal No joint pain, stiffness, or weakness except as per HPI. Endocrine No polyphagia, polydypsia, or polyuria. Hematologic No known or recent anemia, no excessive bleeding. Rheumatologic No history or currently active autoimmune or rheumatologic disease except as per HPI. Integumentary No new or relevant rashes or lesions except as per HPI. Neurologic No numbness, tingling, or weakness into her distal extremities except as per HPI. Constitutional Normal No acute distress. Well nourished. Well developed. Head/Face Normal Facial features - Normal. Eyebrows - Normal. Skull - Normal. Hair and scalp - Normal. Eyes Normal General - Right: Normal, Left: Normal. Lids/external - Right: Normal, Left: Normal. Conjunctiva - Right: Normal, Left: Normal. Ears Normal Inspection - Right: Normal, Left: Normal. Pinna - Right: Normal, Left: Normal. Nasopharynx Normal External nose - Normal. Nares - Right: Normal. Nasal Mucosa - Normal. Lips/teeth/gums - Normal. Buccal mucosa - Normal. Neck Exam Normal Inspection - Normal. Range of motion - Normal. Neck Exam Comments Supple. Respiratory Normal Inspection - Normal. Cough - Absent. Effort - Normal. Cardiovascular Normal Heart rate - Regular rate. Vascular Normal Pulses - Radial: Normal, Brachial: Normal, Dorsalis pedis: Normal, Posterior tibial: Normal. Capillary refill - Less than 2 seconds. Skin * Rash - Description: none. Extremity Normal No Edema. No Calf tenderness. Diabetic Foot Screen Normal Pulses - Dorsalis pedis: Normal, Posterior tibial: Normal. Neurological Normal Level of consciousness - Normal. Orientation - Normal. Memory - Normal. Psychiatric Normal No agitation. Appropriate mood and affect. Appropriate affect. Normal insight. Normal judgment. Lumbar spine Inspection: No erythema, ecchymosis, swelling or deformity. No open wounds. Normal lumbar lordosis.No evidence of marked scoliosis. Palpation: Non-tender to the spinous processes, paraspinals. Tender to bilateral SI joints. ROM: moderate limitation in flexion, extension, lateral bending and rotation. Strength: 5/5 and symmetric bilateral hip flexion, knee flexion/extension, ankle dorsiflexion/plantar flexion and EHL Sensation: Intact and symmetric to soft touch for the bilateral L3-S1 dermatomes. Reflexes: Intact and symmetric bilateral patellar and Achilles. Special Maneuvers: Negative straight leg raise and crossover sign. CAIT Positive NEYDA Positive Vascular: Intact and symmetric dorsalis pedis and posterior tibial pulses. Reviewed: XR lumbar spine 06/10/22 MRI lumbar spine 05/18/22 Independent Interpretation- XR bilateral hips/pelvis 06/16/22 - mild bilateral hip OA, moderate SI joint OA, no acute abnormalities. Notes reviewed from Dr Zheng 06/16/22 History obtained from patient and . ASSESSMENT and PLAN 1. Osteoarthritis of both sacroiliac joints 2. Pain of both sacroiliac joints We elected to move forward with an injection today to the bilateral lumbar spine paraspinal. I would like Sarah to return for a possible left sacroiliac joint injection in the next available appointment spot. She may call with any questions or concerns 3. Other spondylosis with radiculopathy, lumbar region 4. Spinal stenosis, lumbar region with neurogenic claudication Doesn't seem to be the main pain generator. Referrals: none Medications prescribed today: none Follow up plan: Possible left sacroiliac joint injection with US guidance Complexity of problem(s): mild Risk of morbidity from additional testing or treatment: low We discussed the natural history of this problem and usual treatments. We discussed possible treatment options including conservative, aggressive, invasive and non-invasive. These options were explained in detail. The patient and/or guardian agreed with the above assessment and plan. Differential diagnoses of back pain were considered including but not limited to degenerative change, internal derangement, fracture and any other severely limiting injury. LOWER EXTREMITY INJECTION Date/Time: 06/23/2022 7:20 AM Supporting Documentation Indications: pain and therapeutic Procedure Details: Procedure: trigger point injection Location: spine - Trigger Point Injection Details: Bilateral lumbar paraspinal Needle size: 22 G Number of muscles injected: 1-2 muscle groups Medication Verification: I have personally verified and performed the final check of the medication(s) used in this procedure prior to administration. The following items were included during the verification process for medication(s) administered: drug name, strength, volume, expiration, physical integrity and appearance of the medication(s). Medications administered: 1 mL lidocaine 10 mg/mL; 1 mL bupivacaine 0.5 %; 80 mg triamcinolone 40 MG/ML; 4 mg dexAMETHasone 4 MG/ML Patient tolerance: patient tolerated the procedure well with no immediate complications Pre-Procedure Details The attending physician was present for the entire procedure. Consent: Consent was obtained prior to the procedure after discussion of the risks, benefits and alternatives, and expected outcomes were discussed with the patient. The possibilities of reaction to medication, bleeding, infection, the need for additional procedures, failure to diagnosis a condition, and creating a complication requiring operation were discussed with the patient. The patient concurred with the proposed plan, giving consent. Preparation: Patient was prepped in the usual sterile fashion. The patient was prepped with alcohol. Medical Decision Making At today's visit I reviewed the history, physical examination, and previous pertinent imaging. We weighed the options of whether or not to proceed with an injection today based off of these findings and discussed alternatives. After this discussion, I felt that the injection was indicated and we elected to proceed. This evaluation and management service was a separate and identifiable service apart from the injection. Patient counseled on expected outcome and continued treatment and healing process. Patient tolerated the procedure well and was discharged in good condition with post-procedure instructions and anticipatory guidance regarding possible adverse reactions after the procedure including but not limited to infection, injection site flare reaction, allergic reaction. If corticosteroids were used then specifically the patient may develop hyperglycemia, facial flushing, heart palpitations amongst many other side effects associated with corticosteroids. I have reviewed, edited and added to the above note and agree with those findings. Additions if any: Keila Hemphill MD, [facility] [employer] - [facility] documented [facility] encounterMem[facility] Instructions* Patient Instructions* Jose London ATC - 06/23/2022 7:20 AM EST Patient counseled on expected outcome and continued treatment and healing process. Patient tolerated the procedure well and was discharged in good condition with post-procedure instructions and anticipatory guidance regarding possible adverse reactions after the procedure including but not limited to infection, injection site flare reaction, allergic reaction. If corticosteroids were used then specifically the patient may develop hyperglycemia, facial flushing, heart palpitations amongst many other side effects associated with corticosteroids. documented in this encounterMem[facility]11-07-[facility]22 History of Present illness Narrative* Dayanna Springer, PT - 04/06/2022 8:00 AM EST Images from the original note were not included. [facility] Outpatient Physical Therapy Daily Note Date: 04/06/2022 Patient Name: Sarah Harris : 1975 (46 y.o.) Referring Provider (secondary): Dr. Ministerio Martínez and Dr. Sloan Diagnosis: Lumbosacral Spinal Stenosis, Pain in hip, pain in thigh Treatment Diagnosis: Back Pain Onset Date: 01/21/22 PT Insurance Information: [facility] Total # of Visits Approved: 12 Per Physician Order Total # of Visits to Date: 10 Plan of Care/Certification Expiration Date: 04/03/22 Pre-Treatment Pain: 5/10 Assessment Assessment: Patient c/o back pain 5/10. Completed therex and manual therapy per Doc Flow. Strength B LE 5/5. Trunk ROM limited 25%; tightness in low and mid thoracic areas. Oswestry score 14/45. discharged. Plan Discharge Exercises/Modalities/Manual: See DocFlow Sheet Education: Goals (Total # of Visits to Date: 10) Short Term Goals Time Frame for Short Term Goals: 8 Short Term Goal 1: Patient to be independent with HEP-MET Short Term Goal 2: Patient to demonstrate understanding for improved posture following back education-met Short Term Goal 3: Patient to be able to stand or walk for 15 minutes before limited by pain-Met STG Goal 3 Status:: Met Medical Records Assistant Goals Time Frame for Medical Records Assistant Goals : 12 Care Home Goal 1: Decrease pain low back 2/10 at worst x3 days-Not Met Care Home Goal 2: Improved functional mobility with Oswestry score <10/45- Not MET Post Treatment Pain: 4/10 Time In: 8:00 Time Out : 8:35 Timed Code Treatment Minutes: 35 Minutes Total Treatment Time: 35 Minutes Dayanna Springer, PT Date: 04/06/2022 documented in this encounterLEWISGALE [facility]OSPITAL ALLEGHANYAppointedd Phone: [phone] Hospital course Narrative* Dayanna Springer, PT - 04/06/2022 8:00 AM EST Images from the original note were not included. [facility] Outpatient Physical Therapy Discharge Summary Patient: Sarah Harris : 1975 Referring Provider (secondary): Dr. Ministerio Martínez and Dr. Sloan Diagnosis: Lumbosacral Spinal Stenosis, Pain in hip, pain in thigh Date Treatment Initiated: 02/24/22 Date of Last Treatment: 04/06/22 PT Visit Information Onset Date: 01/21/22 PT Insurance Information: BS Total # of Visits to Date: 10 Plan of Care/Certification Expiration Date: 04/03/22 Frequency/Duration Days: 2 times per week Weeks: 6 weeks Treatment Received Patient Education/HEP, Back Education, Therapeutic Exercise, Manual Therapy: Myofacial Release/Cupping, and Manual Therapy: Mobilization/Manipulation Pain Level: 5 Assessment Assessment: Patient c/o back pain 5/10. Completed therex and manual therapy per Doc Flow. Strength B LE 5/5. Trunk ROM limited 25%; tightness in low and mid thoracic areas. Oswestry score 14/45. discharged. Reason for Discharge Completion of Prescribed visits and Optimal Function Achieved Comments: Thank you for this referral Dayanna Springer, PT Date: 04/06/2022 documented in this encounterBON [facility]OC MEDICAL CENTERAppointedd Phone: [phone] 289-821811-02-2022 History of Present illness Narrative* Jenn Armstrong Luna - 04/01/2022 8:30 AM EDT Images from the original note were not included. Physical Therapy [facility] Outpatient Physical Therapy Daily Note Date: 04/01/2022 Patient Name: Sarah Harris : 1975 (46 y.o.) Referring Provider (secondary): Dr. Ministerio Martínez Diagnosis: Lumbosacral Spinal Stenosis, Pain in hip, pain in thigh Treatment Diagnosis: Back Pain Onset Date: 01/21/22 PT Insurance Information: BCBS Total # of Visits Approved: 12 Per Physician Order Total # of Visits to Date: 9 Plan of Care/Certification Expiration Date: 04/03/22 Pre-Treatment Pain: 8/10 Assessment Assessment: Patient rates pain today as 8/10. States she has bee doing painting around her home andnotes this might be the cause of the increase in pain. Completes exercises as stated above without difficulty. Concluded session with manual therapy to low back. Continue x 1 visit. Plan Continue with current plan of care Exercises/Modalities/Manual: See DocFlow Sheet Education: Goals (Total # of Visits to Date: 9) Short Term Goals Time Frame for Short Term Goals: 8 Short Term Goal 1: Patient to be independent with HEP-MET Short Term Goal 2: Patient to demonstrate understanding for improved posture following back education-met Short Term Goal 3: Patient to be able to stand or walk for 15 minutes before limited by pain-Met STG Goal 3 Status:: Met Care Home Goals Time Frame for Care Home Goals : 12 Care Home Goal 1: Decrease pain low back 2/10 at worst x3 days Medical Records Assistant Goal 2: Improved functional mobility with Oswestry score <10/45 Post Treatment Pain: 5/10 Time In: 0823 Time Out : 0901 Timed Code Treatment Minutes: 38 Minutes Total Treatment Time: 38 Minutes Jenn Armstrong Luna ,WEDDING DESIGNER Date: 04/01/2022 documented in this encounterBON [facility] Work Phone: [phone] 505-182410-25-2022 History of Present illness Narrative* Dayanna Springer, PT - 03/24/2022 11:15 AM EDT Images from the original note were not included. [facility] Outpatient Physical Therapy Daily Note Date: 03/24/2022 Patient Name: Sarah Harris : 1975 (46 y.o.) Referring Provider (secondary): Dr. Ministerio Martínez Diagnosis: Lumbosacral Spinal Stenosis, Pain in hip, pain in thigh Treatment Diagnosis: Back Pain Onset Date: 01/21/22 PT Insurance Information: [employer]BS Total # of Visits Approved: 12 Per Physician Order Total # of Visits to Date: 8 Plan of Care/Certification Expiration Date: 04/03/22 Pre-Treatment Pain: 3/10 Assessment Assessment: Back pian 3/10, overall improved since starting PT. Patient completed therex and manualtherapy per Doc Flow. Pain 2/10 at end of session. Continue per plan for one more week, follow up with 04/02/22. Plan Continue with current plan of care Exercises/Modalities/Manual: See DocFlow Sheet Education: Goals (Total # of Visits to Date: 8) Short Term Goals Time Frame for Short Term Goals: 8 Short Term Goal 1: Patient to be independent with HEP-MET Short Term Goal 2: Patient to demonstrate understanding for improved posture following back education-met Short Term Goal 3: Patient to be able to stand or walk for 15 minutes before limited by pain-Met STG Goal 3 Status:: Met Care Home Goals Time Frame for Care Home Goals : 12 Care Home Goal 1: Decrease pain low back 2/10 at worst x3 days Care Home Goal 2: Improved functional mobility with Oswestry score <10/45 Post Treatment Pain: 2/10 Time In: 11:15 Time Out : 11:55 Timed Code Treatment Minutes: 40 Minutes Total Treatment Time: 40 Minutes Dayanna Springer, PT Date: 03/24/2022 documented in this encounterBON SECCellcrypt Phone: [phone] 565-255510-20-2022 History of Present illness Narrative* Jenn S Luna - 03/19/2022 11:15 AM EDT Images from the original note were not included. Physical Therapy [facility] Outpatient Physical Therapy Daily Note Date: 03/19/2022 Patient Name: Sarah Harris : 1975 (46 y.o.) Referring Provider (secondary): Dr. Ministerio Martínez Diagnosis: Lumbosacral Spinal Stenosis, Pain in hip, pain in thigh Treatment Diagnosis: Back Pain Onset Date: 01/21/22 PT Insurance Information: BCBS Total # of Visits Approved: 12 Per Physician Order Total # of Visits to Date: 7 Plan of Care/Certification Expiration Date: 04/03/22 Pre-Treatment Pain: 2/10 Assessment Assessment: Patient rates pain today as 2/10. Completes exercises as outlined above with good tolerance. Concluded session with manual. Plan Continue with current plan of care Exercises/Modalities/Manual: See DocFlow Sheet Education: Goals (Total # of Visits to Date: 7) Short Term Goals Time Frame for Short Term Goals: 8 Short Term Goal 1: Patient to be independent with HEP-MET Short Term Goal 2: Patient to demonstrate understanding for improved posture following back education-met Short Term Goal 3: Patient to be able to stand or walk for 15 minutes before limited by pain STG Goal 3 Status:: Met Medical Records Assistant Goals Time Frame for Care Home Goals : 12 Care Home Goal 1: Decrease pain low back 2/10 at worst x3 days Medical Records Assistant Goal 2: Improved functional mobility with Oswestry score <10/45 Post Treatment Pain: 2/10 Time In: 1115 Time Out : 1153 Timed Code Treatment Minutes: 39 Minutes Total Treatment Time: 39 Minutes Jenn Carrasco ,SUKHDEEP Date: 03/19/2022 documented in this encounterSAINT LUKE'S HOSPITALCellcrypt Phone: [phone] History of Present illness Narrative* Dayanna Springer, PT - 03/17/2022 12:45 PM EDT Images from the original note were not included. [facility] Outpatient Physical Therapy Daily Note Date: 03/17/2022 Patient Name: Sarah Harris : 1975 (46 y.o.) Referring Provider (secondary): Dr. Ministerio Martínez Diagnosis: Lumbosacral Spinal Stenosis, Pain in hip, pain in thigh Treatment Diagnosis: Back Pain Onset Date: 01/21/22 PT Insurance Information: BCBS Total # of Visits Approved: 12 Per Physician Order Total # of Visits to Date: 6 Plan of Care/Certification Expiration Date: 04/03/22 Pre-Treatment Pain: 2/10 Assessment Assessment: Pain low back 2/10. Patient reports went to football game over weekend and did alot of walking, back felt good, but had increased left knee pain. Completed therex and manual therapy per Doc flow. Education on correct posture, patient demonstrates understanding. Patient sees 04/02/22, continue per plan. Plan Continue with current plan of care Exercises/Modalities/Manual: See DocFlow Sheet Education: Goals (Total # of Visits to Date: 6) Short Term Goals Time Frame for Short Term Goals: 8 Short Term Goal 1: Patient to be independent with HEP-MET Short Term Goal 2: Patient to demonstrate understanding for improved posture following back education-met Short Term Goal 3: Patient to be able to stand or walk for 15 minutes before limited by pain STG Goal 3 Status:: Met Care Home Goals Time Frame for Medical Records Assistant Goals : 12 Care Home Goal 1: Decrease pain low back 2/10 at worst x3 days Medical Records Assistant Goal 2: Improved functional mobility with Oswestry score <10/45 Post Treatment Pain: 0/10 Time In: 12:45 Time Out : 13:25 Timed Code Treatment Minutes: 40 Minutes Total Treatment Time: 40 Minutes Dayanna Springer, PT Date: 03/17/2022 documented in this encounterBON SECCellcrypt Phone: [phone] History of Present illness Narrative* Jenn Nathanile Carrasco - 03/05/2022 11:15 AM EDT Images from the original note were not included. Physical Therapy [facility] Outpatient Physical Therapy Daily Note Date: 03/05/2022 Patient Name: Sarah Harris : 1975 (46 y.o.) Referring Provider (secondary): Dr. Ministerio Martínez Diagnosis: Lumbosacral Spinal Stenosis, Pain in hip, pain in thigh Treatment Diagnosis: Back Pain Onset Date: 01/21/22 PT Insurance Information: BCBS Total # of Visits Approved: 12 Per Physician Order Total # of Visits to Date: 3 Plan of Care/Certification Expiration Date: 04/03/22 Pre-Treatment Pain: 7/10 Assessment Assessment: Patient reports being sore this date and rates pain as 7/10. Completes exercises as outlined above with good tolerance. Concluded session with manual therapy. Pain 5/10 following. Plan Continue with current plan of care Exercises/Modalities/Manual: See DocFlow Sheet Education: Goals (Total # of Visits to Date: 3) Short Term Goals Time Frame for Short Term Goals: 8 Short Term Goal 1: Patient to be independent with HEP-MET Short Term Goal 2: Patient to demonstrate understanding for improved posture following back education Short Term Goal 3: Patient to be able to stand or walk for 15 minutes before limited by pain Care Home Goals Time Frame for Medical Records Assistant Goals : 12 Care Home Goal 1: Decrease pain low back 2/10 at worst x3 days Care Home Goal 2: Improved functional mobility with Oswestry score <10/45 Post Treatment Pain: 5/10 Time In: 1109 Time Out : 1150 Timed Code Treatment Minutes: 41 Minutes Total Treatment Time: 41 Minutes Jenn Carrasco PTA Date: 03/05/2022 documented in this encounterSAINT LUKE'S HOSPITALCellcrypt Phone: [phone] History of Present illness Narrative* Dayanna Springer, PT - 03/03/2022 11:00 AM EDT Images from the original note were not included. [facility] Outpatient Physical Therapy Daily Note Date: 03/03/2022 Patient Name: Sarah Harris : 1975 (46 y.o.) Referring Provider (secondary): Dr. Ministerio Martínez Diagnosis: Lumbosacral Spinal Stenosis, Pain in hip, pain in thigh Treatment Diagnosis: Back Pain Onset Date: 01/21/22 PT Insurance Information: [facility] Total # of Visits Approved: 12 Per Physician Order Total # of Visits to Date: 2 Plan of Care/Certification Expiration Date: 04/03/22 Pre-Treatment Pain: 4/10 Assessment Assessment: Pain 4/10 in low back this morning. Completed therex and manual therapy per Doc flow. Reviewed HEP and progressed therx with fair tolerance. Continue per plan. Plan Continue with current plan of care Exercises/Modalities/Manual: See DocFlow Sheet Education: Goals (Total # of Visits to Date: 2) Short Term Goals Time Frame for Short Term Goals: 8 Short Term Goal 1: Patient to be independent with HEP Short Term Goal 2: Patient to demonstrate understanding for improved posture following back education Short Term Goal 3: Patient to be able to stand or walk for 15 minutes before limited by pain Medical Records Assistant Goals Time Frame for Medical Records Assistant Goals : 12 Care Home Goal 1: Decrease pain low back 2/10 at worst x3 days Medical Records Assistant Goal 2: Improved functional mobility with Oswestry score <10/45 Post Treatment Pain: 2/10 Time In: 11:00 Time Out : 11:45 Timed Code Treatment Minutes: 45 Minutes Total Treatment Time: 45 Minutes Dayanna Springer, PT Date: 03/03/2022 documented in this encounterBON [facility] [employer] Work Phone: [phone] History of Present illness Narrative* Dayanna Springer, PT - 02/24/2022 3:30 PM EDT Images from the original note were not included. [facility] Outpatient Physical Therapy Evaluation Date: 02/24/2022 Patient: Sarah Harris : 1975 Referring Provider (secondary): Dr. Sloan Diagnosis: Back pain Treatment Diagnosis: Back Pain Onset Date: 01/21/22 PT Insurance Information: BCBS Total # of Visits Approved: 12 Per Physician Order Total # of Visits to Date: 1 Subjective Additional Pertinent Hx: Patient has had chronic low back pain for aat least 10 years. Back pain been worsening over past year. Pain radiates down R leg to ffot; occassionally pain in left leg. Applying for disability. 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 Pain 4-9/10 in low back and intermittently radiating down R leg.. Can only stand or walk 10 minutes before limited by severe pain. Needs to lean forward on shopping cart when at store to releive pain. 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 Meds- meloton to sleep, celebrex. Pain Assessment Pain Level: 4 Pain Location: Back, Leg Pain Orientation: Right Social/Functional History Lives With: Spouse Occupation: Unemployed Objective Spine Lumbar: flexion WFL, extension limited 50% Joint Mobility Spine: tightness and posture changes (rounding) in thoracic spine Strength RLE Strength RLE: WFL Strength LLE Strength LLE: WFL PROM LLE (degrees) LLE PROM: Exceptions L Knee Extension 0: -10 degrees PROM RLE (degrees) RLE PROM: Exceptions R Knee Extension 0: -15 degrees Additional Measures Special Tests: Oswestry score 19/45 Other: Leg length discrepancy, R LE shorter than L (probably due to flexion contracture of R knee) WB Status: antalgic Assessment Body Structures, Functions, Activity Limitations Requiring Skilled Therapeutic Intervention: Decreased functional mobility , Decreased ROM, Increased pain, Decreased posture Assessment: Patient has chronic back pain with posture changes and radiculopathy down R LE. Completed manual therapy and therex per Doc Flow. Educated patient on and issued HEP handout. Therapy Prognosis: Good Clinical Presentation: Evolving The Following Comorbities will impact the patient s progression and Plan of Care: Diabetes, Obesity, and Previous Orthopedic Injury/Surgery Medium Complexity Education: On POC and HEP [facility] Access Code [id number] Goals Short Term Goals Time Frame for Short term goals: 8 Short term goal 1: Patient to be independent with HEP Short term goal 2: Patient to demonstrate understanding for improved posture following back education Short term goal 3: Patient to be able to stand or walk for 15 minutes before limited by pain Medical Records Assistant Goals Time Frame for bed bug exterminator goals : 12 senior care goal 1: Decrease pain low back 2/10 at worst x3 days bed bug exterminator goal 2: Improved functional mobility with Oswestry score <10/45 Patient's Goal: Be able to walk dog and complete activities without pain interfering Timed Code Treatment Minutes: 15 Minutes Total Treatment Time: 45 Time In: 15:38 Time Out: 16:23 Dayanna Springer, PT Date: 02/24/2022 documented in this encounterINOVA [facility] [employer] Phone: [phone] Hospital Discharge instructions* Discharge Instructions* Adrien Somers MD - 12/20/2021 12:49 PM EDT Begin taking your first dose of prednisone at home tomorrow. In place of Benadryl, use the Atarax as prescribed. Use caution as this may cause drowsiness. Do not drive or perform other dangerous activity while taking this medication. Additionally, you may use ucbd-rzu-atavxhm calamine or Caladryl for extra symptom relief. Return to the ED for worsening rash, development of fever, pain or other concerns. * Attachments The following attachments cannot be sent through Care Everywhere. * Allergic Reaction ([place]) * Rash ([place]) documented in this encounterSAINT LUKE'S HOSPITALCellcrypt Phone: [phone]) [phone] Hospital Discharge instructions* Instructions* Mira Mcwilliams RN - 12/10/2021 SAME DAY SURGERY DISCHARGE INSTRUCTIONS 1. Do not drive or operate hazardous machinery for 24 hours. 2. Do not make important personal or business decisions for 24 hours. 3. Do not drink alcoholic beverages for 24 hours. 4. Do not smoke tobacco products for 24 hours. You have just undergone a minor operative procedure and these instructions should help you through the postoperative phase of the operation. Most patients feel sleepy for several hours after going home and this anesthetic effect may not wear off until the next morning. You should not use any alcoholic beverages or drive until the following day. It is advisable to take it easy for one or two days following your procedure by avoiding any lifting, pushing, moving or carrying any heavy objects; thereafter, you should be able to resume most of your normal activities and return to work. If a D&C was done either alone or in addition to another procedure, you may have some vaginal bleeding for several days, but probably not for more than a week. You should avoid baths (you may shower), tampons, douches or sexual relations until your postop visit or until the vaginal staining hascompletely subsided. Your menstrual period will occur approximately 3-4 weeks after the procedure, o ccasionally earlier. It also may be heavier than normal. You may experience some cramping or some mild to moderate lower abdominal discomfort, but this should be gone by the next day. In the meantime, you may take an iopi-zhz-ihnzcem analgesic (Tylenol, Anacin, etc.) and use a heating pad applied to the lower abdomen. Please call the office as soon as possible for a post-operative visit in two weeks. If you experience any unusual amount of bleeding or side effects that you cannot readily explain, please do not hesitate to call the office. documented in this encounterBON [facility] [employer] Work Phone: [phone]) [phone] History of Present illness Narrative* Mira Mcwilliams RN - 12/10/2021 1:50 PM EDT Patient states pain tolerable and ready to be discharged at this time. Discharge instructions givento pt and spouse. Both verbalize understanding,deny any questions and/or concerns. Pt transfer off unit in wheelchair w/ spouse and all belongings. Discharge Criteria Inpatients must meet Criteria 1 through 7. All other patients are either YES or N/A. If a NO is chosen then Anesthesia or Surgeon must be notified. 1. Minimum 30 minutes after last dose of sedative medication, minimum 120 minutes after last dose of reversal agent. Yes 2. Systolic BP stable within 20 mmHg for 30 minutes & systolic BP between 90 & 180 or within 10 mmHg of baseline. Yes 3. Pulse between 60 and 100 or within 10 bpm of baseline. Yes 4. Spontaneous respiratory rate >/= 10 per minute. Yes 5. SaO2 >/= 95 or >/= baseline. Yes 6. Able to cough and swallow or return to baseline function. Yes 7. Alert and oriented or return to baseline mental status. Yes 8. Demonstrates controlled, coordinated movements, ambulates with steady gait, or return to baseline activity function. Yes 9. Minimal or no pain or nausea, or at a level tolerable and acceptable to patient. Yes 10. Takes and retains oral fluids as allowed. Yes 11. Procedural / perioperative site stable. Minimal or no bleeding. Yes 12. If GI endoscopy procedure, minimal or no abdominal distention or passing flatus. N/A 13. Written discharge instructions and emergency telephone number provided. Yes 14. Accompanied by a responsible adult. Yes documented in this encounterBON [facility]ENTERCellcrypt Phone: [phone]) 411-613807-07-2022 History of Present illness Narrative* Danial Iyer RN - 12/04/2021 10:00 AM EDT AnesthesiaDalia CRNA notified of patient's BMI, as well as blood pressure at today's visit. Patient states she normally takes Calan in PM with lunch. Encouraged patient to take in a.m. of surgery day. Patient verbalized understanding. * Danial Iyer RN - 12/04/2021 10:00 AM EDT Patient instructed per in person interview on the pre-operative, intra- operative, and post-operative process as well as NPO status.Patient to stop Tumeric today. Instructed to take Calan, Celebrex, Singulair, Micronor, Protonix and Paxil a.m. of surgery with sip of water only. Pre-operative instruction sheet reviewed with the patient as well as [facility] skin prep instructions. Verbalizes understanding. * Danial Iyer RN - 12/04/2021 10:00 AM EDT [facility] Preadmission Testing Name: Sarah Harris : 1975 Patient (home) Procedure D&C, Novasure Date of Procedure: 12/10/21 Surgeon: Frank Pickering MD Ht: 5' 6 (167.6 cm) Wt: Weight: (!) 351 lb 12.8 oz (159.6 kg) Wt method: Actual Allergies: Allergies Allergen Reactions Codeine Shortness Of Breath Sulfa Antibiotics Shortness Of Breath and Swelling Adipex-P [Phentermine] Penicillin G Rash Zoloft [Sertraline] Nausea And Vomiting Peanut allergy: No Vitals: 12/04/21 1031 BP: (S) (!) 162/104 Pulse: 95 Resp: 22 Temp: 98.6 F (37 C) SpO2: 98% Patient's last menstrual period was 11/14/2021 (exact date). Do you take blood thinners? [] Yes [x] No Instructed to stop blood thinners prior to procedure? [] Yes [] No [x] N/A Do you have sleep apnea? [] Yes [x] No Instructed to bring CPAP machine? [] Yes [] No [x] N/A Do you have acid reflux ? [x] Yes [] No Do you have hiatal hernia? [] Yes [x] No Do you ever experience motion sickness? [] Yes [x] No Have you had a respiratory infection or sore throat in last 4 weeks before surgery? [] Yes [x] No Do you have poorly controlled asthma or COPD? [] Yes [x] No Do you have a history of angina in the last month or symptomatic arrhythmia? [] Yes [x] No Do you have significant central nervous system disease? [] Yes [x] No Have you had an EKG, labs, or chest xray in last 12 months? If yes provide copies to anesthesia [x] Yes [] No [x] Lab [x] EKG [] CXR Have you had a stress test? [] Yes [x] No When/where: Was it normal? [] Yes [] No Do you or your family have a history of Malignant Hyperthermia? [] Yes [x] No Patient instructed on: [x] NPO Status [x] Meds to Take Day of Surgery [x] Ride Home [x]No Jewelry/Contact Lenses/Dentures day of surgery [x] Chlorhexidene PAT Call/Visit Questions Person Interviewed: Sarah Relationship to Patient: Patient Surgery Location Verified: Yes NPO Status Reinforced: Yes Ride and Caregiver Arranged: Yes Ride Caregiver Provider: , Osmani CHG Bottle/Wipes provided with instructions for use: Yes Pre-AdmissionTesting Checklist History and Physical Collected?: No (Dr. nation bring on DOS) Communication Needs: None Pre-existing DNR Comfort Care/DNR Arrest/DNI Order: No Patient instructed on the pre-operative, intra-operative, and post-operative process? Yes Medication instructions reviewed with patient? Yes Pre operative instruction sheet reviewed and given to patient in PAT? Yes documented in this encounterB[facility] MED[facility] CENTERDeltagen Work Phone: [phone] 247-151408-05-2021 NotePROCEDURE: XR ANKLE RT MIN 3 VIEWS HISTORY: Pain of right ankle joint posterior lateral swelling COMPARISON: XR ankle right 08/23/2018 FINDINGS: BONES:No fracture, acute abnormality, or significant arthropathy of the ankle joint. Large degenerative disease of 5 to the Achilles tendon insertion and plantar aponeurosis insertion into the calcaneus. Prior Achilles tendon repair suspected.. SOFT TISSUES:Moderate soft tissue swelling. EFFUSION:None visible. OTHER: Negative. IMPRESSION: 1. Calcaneal degenerative changes and prior Achilles tendon repair. 2. No acute abnormality or significant degenerative changes of the ankle joint. Electronically authenticated by: ANA ELIAS Date: 2021-01-02 16:24[id number] History of Present illness Narrative* Mariajose Mas RN - 05/15/2019 10:24 AM EST Discharge Criteria Outpatients must meet criteria 1 through 7. Up to restroom, void sufficient amount. Yes 1. Minimum 30 minutes after last dose of sedative medication, minimum 120 minutes after last dose of reversal agent. Yes 2. Systolic BP stable within 20 mmHg for 30 minutes & systolic BP between 90 & 180 or within 10 mmHg of baseline. Yes 3. Pulse between 60 and 100 or within 10 bpm of baseline. Yes 4. Spontaneous respiratory rate >/= 10 per minute. Yes 5. SaO2 >/= 95 or >/= baseline. Yes 6. Able to cough and swallow or return to baseline function. Yes 7. Alert and oriented or return to baseline mental status. Yes 8. Demonstrates controlled, coordinated movements, ambulates with steady gait, or return to baseline activity function. Yes 9. Minimal or no pain or nausea, or at a level tolerable and acceptable to patient. Yes 10. Takes and retains oral fluids as allowed. Yes 11. Procedural / perioperative site stable. Minimal or no bleeding. Yes 12. If GI endoscopy procedure, minimal or no abdominal distention or passing flatus. Yes 13. Written discharge instructions and emergency telephone number provided. Yes 14. Accompanied by a responsible adult. Yes Adult patient discharged from facility without responsible person meets above criteria plus the following: a) remains awake without stimulus for 30 minutes b) oriented appropriate for age c) all vital signs stable d) no significant risk of losing protective reflexes e) able to maintain pre-procedure mobility without assistance f) no nausea or dizziness g) transportation arrangements that do not require patient to operate motor Vehicle. Yes [facility] Phone: evalykpspt note* Diagnosis Iron deficiency anemia due to chronic blood loss Iron deficiency anemia secondary to blood loss (chronic) documented in this encounter [facility] Phone: evalddesdi note* Diagnosis Suspected COVID-19 virus infection documented in this encounter [facility] Phone: evalasvfoa note* Diagnosis Iron deficiency anemia due to chronic blood loss Iron deficiency anemia secondary to blood loss (chronic) Type 2 diabetes mellitus without complication, without long-term current use of insulin (HCC) documented in this encounter [facility] Phone: evaluation note* Diagnosis Adverse effect of drug, initial encounter- Primary documented in this encounter [facility] Phone: evalmagxjk note* Diagnosis Type 2 diabetes mellitus without complication, without long-term current use of insulin (HCC) Encounter for hepatitis C screening test for low risk patient Iron deficiency anemia due to chronic blood loss Iron deficiency anemia secondary to blood loss (chronic) documented in this encounter [facility] Phone: evalfdigyn note* Diagnosis Pre-op testing Preoperative examination, unspecified Dysmenorrhea documented in this encounter [employer] Phone: evalzuaqns note* Diagnosis Dysmenorrhea documented in this encounter [employer] [facility] Phone: evalpxyxum note* Diagnosis Rash- Primary Rash and other nonspecific skin eruption Allergic reaction, initial encounter documented in this encounter [employer] Phone: evaluation noteNo assessment information available [facility] Work Phone: Evaluation note* Diagnosis Chronic bilateral low back pain with bilateral sciatica documented in this encounter [employer] Phone: evalwxpfij note* Diagnosis Low back pain, unspecified back pain laterality, unspecified chronicity, unspecified whether sciatica present documented in this encounter [employer] Phone: evalnxwvga note* Diagnosis Osteoarthritis of both sacroiliac joints- Primary Pain of both sacroiliac joints Disorders of sacrum Other spondylosis with radiculopathy, lumbar region Spinal stenosis, lumbar region with neurogenic claudication [facility]* Diagnosis Left ovarian cyst Other and unspecified ovarian cyst documented in this encounter [employer] Phone: evalxrharf note* Diagnosis Pre-op chest exam Pre-operative respiratory examination Post endometrial ablation syndrome Pelvic pain in female Unspecified symptom associated with female genital organs documented in this encounter [employer] Phone: evalzbikvj note* Diagnosis Osteoarthritis of both sacroiliac joints- Primary Pain of both sacroiliac joints Disorders of sacrum [facility] [place] [facility]* Diagnosis Osteoarthritis of both sacroiliac joints- Primary Pain of both sacroiliac joints Disorders of sacrum [facility] [place] [facility]* Diagnosis Pneumonia of both lower lobes due to infectious organism- Primary documented in this encounter [facility] Phone: evaluation note* Diagnosis Osteoarthritis of both sacroiliac joints- Primary Pain of both sacroiliac joints Disorders of sacrum Pain of left hip documented [facility] this encounter [facility] [place] [facility]* Diagnosis Vertebrogenic low back pain [facility] [place] [facility]* Diagnosis Osteoarthritis of both sacroiliac joints- Primary Pain of both sacroiliac joints Disorders of sacrum documented in this encounter [facility] note* Diagnosis Elective surgery- Primary Unspecified elective surgery for purposes other than remedying health states documented in this encounter [facility] note* Diagnosis Sacroiliitis Sacroiliitis, not elsewhere classified documented in this encounter [facility] note* Diagnosis Spinal stenosis of lumbar region with neurogenic claudication Spinal stenosis, lumbar region, with neurogenic claudication [facility] [place] [facility]* Diagnosis Osteoarthritis of both sacroiliac joints- Primary documented in this encounter [facility] note* Diagnosis Pain in right hip Pain in joint, pelvic region and thigh documented [facility] [place] [facility]* Diagnosis Spinal stenosis, lumbar region with neurogenic claudication documented in this encounter [facility] note* Diagnosis Tricompartment osteoarthritis of right knee- Primary documented in this encounter [facility] note* Diagnosis Breast cancer screening by mammogram [facility]* Attachments The following attachments cannot be sent through Care Everywhere. * Medication Side Effects ([place]) [facility] Phone: Hospital Discharge instructions* Instructions* Dena Rich RN - 05/15/2019 Upper GI Endoscopy: What to Expect at Home Your Recovery After you have an endoscopy, you will stay at the hospital or clinic for 1 to 2 hours. This will allow the medicine to wear off. You will be able to go home after your doctor or nurse checks to make sure you are not having any problems. You may have to stay overnight if you had treatment during the test. You may have a sore throat fora day or two after the test. This care sheet gives you a general idea about what to expect after the test. How can you care for yourself at home? Activity Rest as much as you need to after you go home. You should be able to go back to your usual activities the day after the test. Diet Follow your doctor's directions for eating after the test. Drink plenty of fluids (unless your doctor has told you not to). Medications If you have a sore throat the day after the test, use an ywti-xnr-ropefar spray to numb your throat. Follow-up care is a wells part of your treatment and safety. Be sure to make and go to all appointments, and call your doctor if you are having problems. It's also a good idea to know your test resultsand keep a list of the medicines you take. When should you call for help? Call 911 anytime you think you may need emergency care. For example, call if: You passed out (loses consciousness). You have trouble breathing. You pass maroon or bloody stools. Call your doctor now or seek immediate medical care if: You have pain that does not get better after your take pain medicine. You have new or worse belly pain. You have blood in your stools. You are sick to your stomach and cannot keep fluids down. You have a fever. You cannot pass stools or gas. Watch closely for changes in your health, and be sure to contact your doctor if: Your throat still hurts after a day or two. You do not get better as expected. Where can you learn more? Go to [email or web address] and sign in to your My Visual Brief account. Enter J454 in the Search Health Information box to learn more about Upper GI Endoscopy: What to Expect at Home. If you do not have an account, please click on the Sign Up Now link. Current as of: April 06, 2018 Content Version: [id number] [employer]. Care instructions adapted under license by [employer]. If youhave questions about a medical condition or this instruction, always ask your healthcare professional. [facility] disclaims any warranty or liability for your use of this information. documented in this encounterMccullough[facility] HospitalMy [employer] Phone: Hospital Discharge instructions* Attachments The following attachments cannot be sent through Care Everywhere. * Laparoscopic Hysterectomy: Post-op ([place]) * Surgical Drain Care ([place]) * Surgical Site Infections: Prevention: General Info ([place]) documented in this encounterB[facility] CENTERCellcrypt Phone: Hospital Discharge instructions* Attachments The following attachments cannot be sent through Care Everywhere. * Knee Arthritis ([place]) documented in this encounterSAINT LUKE'S HOSPITALSnoox [facility] for referral (narrative)* Consultation (Routine) - Closed Specialty Diagnoses / Procedures [facility] Referred To Contact Neurologic Surgery Diagnoses Osteoarthritis of both sacroiliac joints Pain of both sacroiliac joints Keila Hemphill MD [address] [place] [id number] Referral ID Status Reason Start Date Expiration Date Visits Re quested Visits Authorized [id number] Closed 12/15/2022 01/09/2024 1 1 * Radiology (Routine) - New Request Specialty Diagnoses / Procedures [facility] Referred To Contact Diagnoses Osteoarthritis of both sacroiliac joints Pain of both sacroiliac joints Procedures US IMAGING FOR ORTHO Keila Hemphill MD [address] [place] [id number] Referral ID Status Reason Start Date Expiration Date V isits Requested Visits Authorized [id number] New Request 12/15/2022 01/09/2024 1 1 [facility] for visit Narrative* Auth/Cert Specialty Diagnoses / Procedures Referred By Contac t Referred To Contact Diagnoses Dysmenorrhea SECONDARY DYSMENORRHEA Procedures HI HYSTEROSCOPY,W/ENDOMETRIAL ABLATION DILATATION AND CURETTAGE HYSTEROSCOPY CAUTERY ABLATION-Frank Licona MD [address] [place] [address] [email or web address] [address] [place] [address] Referral ID Status Reason Start Date Expiration Date Visits Re quested Visits Authorized [id number] 1 1 [email or web address] Work Phone: Assessments Diagnosis Acute bronchitis, unspecified organism Diagnosis Screening for cardiovascular condition Screening for other and unspecified cardiovascular conditions Weight gain Abnormal weight gain Prediabetes Other abnormal glucose Decreased hemoglobin Anemia, unspecified Diagnosis Breast cancer screening by mammogram Diagnosis Acute right-sided low back pain with right-sided sciatica Diagnosis Viral URI with cough Acute upper respiratory infections of unspecified site Diagnosis Osteoarthritis of right knee Osteoarthrosis, unspecified whether generalized or localized, lower leg Advance Directives No Advanced Directives Records FoundDocuments on File Type Date Recorded Patient Arranger Assembler Expl anation Advance Directives and Living Will Power of Programming Instructor Latest Code Status on File Code Status Date Activated Date Inactivated Comments Full Code 07/20/2014 9:50 AM 07/20/2014 4:38 PM Full Code 04/10/2013 8:41 AM 04/10/2013 4:13 PM Full Code 01/16/2013 7:33 AM 01/16/2013 4:58 PM Documents on File Type Date Recorded Patient Arranger Assembler Expl anation Advance Directives and Living Will Power of Programming Instructor Latest Code Status on File Code Status Date Activated Date Inactivated Comments Full Code 05/15/2019 10:28 AM 05/15/2019 12:33 PM Full Code 05/15/2019 8:17 AM 05/15/2019 10:28 AM Full Code 07/20/2014 9:50 AM 07/20/2014 4:38 PM Full Code 04/10/2013 8:41 AM 04/10/2013 4:13 PM Full Code 01/16/2013 7:33 AM 01/16/2013 4:58 PM Latest Code Status on File Code Status Date Activated Date Inactivated Comments Full Code 05/15/2019 10:28 AM 05/15/2019 12:33 PM Full Code 05/15/2019 8:17 AM 05/15/2019 10:28 AM Full Code 07/20/2014 9:50 AM 07/20/2014 4:38 PM Documents on File Type Date Recorded Patient Arranger Assembler Expl anation ACP-Advance Directive ACP-Power of Programming Instructor Documents on File Type Date Recorded Patient Arranger Assembler Expl anation ACP-Advance Directive ACP-Power of Programming Instructor Latest Code Status on File Code Status Date Activated Date Inactivated Comments Full Code 05/09/2020 11:09 AM Full Code 05/15/2019 10:28 AM 05/15/2019 12:33 PM Latest Code Status on File Code Status Date Activated Date Inactivated Comments Full Code 05/23/2020 6:56 AM 05/23/2020 12:41 PM Full Code 05/09/2020 11:09 AM 05/09/2020 3:43 PM Latest Code Status on File Code Status Date Activated Date Inactivated Comments Full Code 05/09/2020 11:09 AM 05/09/2020 3:43 PM Latest Code Status on File Code Status Date Activated Date Inactivated Comments Full Code 05/23/2020 6:56 AM Latest Code Status on File Code Status Date Activated Date Inactivated Comments Full Code 05/23/2020 6:56 AM 05/23/2020 12:41 PM Full Code 05/09/2020 11:09 AM 05/09/2020 3:43 PM Full Code 05/15/2019 10:28 AM 05/15/2019 12:33 PM Latest Code Status on File Code Status Date Activated Date Inactivated Comments Full Code 05/15/2019 10:28 AM Healthcare Agents on File Name Relationship Healthcare Agent Relationshi p Communication Osmani Young Spouse Primary Decision Maker 419-2 2215 (Home) Healthcare Agents on File Name Relationship Healthcare Agent Relationshi p Communication Osmani Young Spouse Primary Decision Maker 419-2 2215 (Home) Latest Code Status on File Code Status Date Activated Date Inactivated Comments Full Code 12/10/2021 12:29 PM Full Code 05/23/2020 6:56 AM 05/23/2020 12:41 PM Healthcare Agents on File Name Relationship Healthcare Agent Relationshi p Communication Osmani Young Spouse Primary Decision Maker 419-2 -2215 (Home) Latest Code Status on File Code Status Date Activated Date Inactivated Comments Full Code 12/10/2021 12:29 PM 12/10/2021 4:31 PM Full Code 05/23/2020 6:56 AM 05/23/2020 12:41 PM Healthcare Agents on File Name Relationship Healthcare Agent Relationshi p Communication Osmani Young Spouse Primary Decision Maker Healthcare Agents on File Name Relationship Healthcare Agent Relationshi p Communication Osmani Young Spouse Primary Decision Maker 419-2 (Home) Advance Directive Response Recorded Date/ Time Advance Directives No December 16 11:27am Healthcare Agents on File Name Relationship Healthcare Agent Relationshi p Communication Osmani Young Spouse Primary Decision Maker 419-2 -2214 (Home) Healthcare Agents on File Name Relationship Healthcare Agent Relationshi p Communication Osmani Young Spouse Primary Decision Maker 419-2 -2214 (Home) Healthcare Agents on File Name Relationship Healthcare Agent Relationshi p Communication Osmani Young Spouse Primary Decision Maker 419-2 (Home) Healthcare Agents on File Name Relationship Healthcare Agent Relationshi p Communication Osmani Young Spouse Primary Decision Maker 419-2 -5 (Home) Healthcare Agents on File Name Relationship Healthcare Agent Relationshi p Communication Osmani Young Spouse Primary Decision Maker 419-2 (Home) Latest Code Status on File Code Status Date Activated Date Inactivated Comments Full Code 12/10/2021 12:29 PM 12/10/2021 4:31 PM Healthcare Agents on File Name Relationship Healthcare Agent Relationshi p Communication Osmani Young Spouse Primary Decision Maker 419-2 5 (Home) Healthcare Agents on File Name Relationship Healthcare Agent Relationshi p Communication Osmani Young Spouse Primary Decision Maker 419-2 -2214 (Home) Healthcare Agents on File Name Relationship Healthcare Agent Relationshi p Communication Osmani Young Spouse Primary Decision Maker 419-2 (Home) Latest Code Status on File Code Status Date Activated Date Inactivated Comments Full Code 09/08/2022 6:19 AM Code Status History Code Status Date Activated Date Inactivated Comments Full Code 12/10/2021 12:29 PM 12/10/2021 4:31 PM Full Code 05/23/2020 6:56 AM 05/23/2020 12:41 PM Full Code 05/09/2020 11:09 AM 05/09/2020 3:43 PM Full Code 05/15/2019 10:28 AM 05/15/2019 12:33 PM Healthcare Agents on File Name Relationship Healthcare Agent Relationshi p Communication Osmani Young Spouse Primary Decision Maker 419-2 (Home) Latest Code Status on File Code Status Date Activated Date Inactivated Comments Full Code 09/08/2022 6:19 AM 09/09/2022 3:54 PM Code Status History Code Status Date Activated Date Inactivated Comments Full Code 12/10/2021 12:29 PM 12/10/2021 4:31 PM Full Code 05/23/2020 6:56 AM 05/23/2020 12:41 PM Full Code 05/09/2020 11:09 AM 05/09/2020 3:43 PM Full Code 05/15/2019 10:28 AM 05/15/2019 12:33 PM Healthcare Agents on File Name Relationship Healthcare Agent Relationshi p Communication Osmani Young Spouse Primary Decision Maker 419-2 (Home) Latest Code Status on File Code Status Date Activated Date Inactivated Comments Full Code 10/19/2023 8:54 AM 10/22/2023 2:37 PM Code Status History Code Status Date Activated Date Inactivated Comments Full Code 09/08/2022 6:19 AM 09/09/2022 3:54 PM Full Code 12/10/2021 12:29 PM 12/10/2021 4:31 PM Full Code 05/23/2020 6:56 AM 05/23/2020 12:41 PM Full Code 05/09/2020 11:09 AM 05/09/2020 3:43 PM Healthcare Agents on File Name Relationship Healthcare Agent Relationshi p Communication Osmani Young Spouse Primary Decision Maker 419-2 (Home) Date Activated Date Inactivated Comments 10/19/2023 8:54 AM 10/22/2023 2:37 PM Date Activated Date Inactivated Comments 09/08/2022 6:19 AM 09/09/2022 3:54 PM Date Activated Date Inactivated Comments 12/10/2021 12:29 PM 12/10/2021 4:31 PM Date Activated Date Inactivated Comments 05/23/2020 6:56 AM 05/23/2020 12:41 PM Date Activated Date Inactivated Comments 05/09/2020 11:09 AM 05/09/2020 3:43 PM Healthcare Agents on File Name Relationship Healthcare Agent Relationshi p Communication Osmani Young Spouse Primary Decision Maker 419-2 (Home) (Mobile) Reason for Referral Status Reason Specialty Diagnoses / Procedures Referred By Contact Referred To Contact Pending Review Radiology Diagnoses Breast cancer screening by mammogram Procedures DANIELLE DIGITAL SCREEN W OR WO CAD BILATERAL Zayra Sloan, DO [address] [place] [address] Specialty Diagnoses / Procedures Referred By Contac t Referred To Contact Cardiology Diagnoses Pre-op testing Procedures EKG 12 Lead Frank Pickering MD [address] [facility] [address] [place] [address] Referral ID Status Reason Start Date Expiration Date V isits Requested Visits Authorized [id number] Pending Review 12/03/2021 12/03/2022 1 1 Specialty Diagnoses / Procedures Referred By Contac t Referred To Contact Radiology Diagnoses Chronic bilateral low back pain with bilateral sciatica M54.42, M54.41, G89.29 (ICD-10-CM) - Chronic bilateral low back pain with bilateral sciatica Procedures MRI LUMBAR SPINE WO CONTRAST HI MRI, LUMBAR SPINE [id number] - HI MRI, LUMBAR SPINE YoZayra mitchell L, DO [address] [place] [address] Referral ID Status Reason Start Date Expiration Date Visits Re quested Visits Authorized [id number] Closed 05/15/2022 07/13/2022 1 1 Specialty Diagnoses / Procedures Referred By Contac t Referred To Contact Cardiology Diagnoses Pre-op chest exam Procedures EKG 12 lead Tino Sánchez PA-C [address] [facility] [address] [place] [address] Referral ID Status Reason Start Date Expiration Date Visits Re quested Visits Authorized [id number] Open 09/05/2022 09/05/2023 1 1 Specialty Diagnoses / Procedures Referred By Contac t Referred To Contact Diagnoses Osteoarthritis of both sacroiliac joints Pain of both sacroiliac joints Procedures US IMAGING FOR ORTHO Keila Hemphill MD [address] [facility] [place] [address] Referral ID Status Reason Start Date Expiration Date V isits Requested Visits Authorized [id number] New Request 08/14/2022 09/08/2023 1 1 Specialty Diagnoses / Procedures Referred By Contac t Referred To Contact Diagnoses Osteoarthritis of both sacroiliac joints Procedures US IMAGING FOR ORTHO Keila Hemphill MD [address] [place] [address] [place] [address] Referral ID Status Reason Start Date Expiration Date V isits Requested Visits Authorized [id number] New Request 08/02/2023 08/26/2024 1 1 Specialty Diagnoses / Procedures Referred By Contac t Referred To Contact Diagnoses Pain in right hip Procedures MRI PELVIS WITHOUT CONTRAST HI MRI, PELVIS, W/O CONTRAST Elliot Zheng MD [facility] [address] [place] [address] [facility] Referral ID Status Reason Start Date Expiration Date Visits Re quested Visits Authorized [id number] Closed 07/27/2023 08/20/2024 1 1 Specialty Diagnoses / Procedures Referred By Contac t Referred To Contact Diagnoses Spinal stenosis, lumbar region with neurogenic claudication Procedures MRI SPINE LUMBAR WITHOUT CONTRAST HI MRI, LUMBAR SPINE Elliot Zheng MD [address] [id number] [facility] Referral ID Status Reason Start Date Expiration Date Visits Re quested Visits Authorized [id number] Closed 07/27/2023 08/20/2024 1 1 Specialty Diagnoses / Procedures Referred By Contac t Referred To Contact Radiology Diagnoses Breast cancer screening by mammogram Procedures [facility] NANO DIGITAL SCREEN BILATERAL Kellyeda, Tino, PA-C [address] [facility] [address] [place] [address] Referral ID Status Reason Start Date Expiration Date Visits Re quested Visits Authorized [id number] Closed 01/05/2024 01/04/2025 1 1 Discharge Instructions * Attachments The following attachments cannot be sent through Care Everywhere. * Sciatica ([place]) * Sciatica: Exercises ([place]) documented in this encounter* Instructions* Malissa Batista, HEAVENLY - 03/07/2020 You have received an injection of local anesthetic and corticosteroids. The local anesthetic effect typically last 4 6 hours. It may take 3 7 days for the corticosteroids to reach optimal effect. Please pay close attention to the following information/instructions: 1. You may not drive for 12 hours after your injection. 2. It is common to experience mild soreness at the injection site(s) for 24 48 hours. Ice is the best remedy. You may apply ice for 20 minutes at a time several times a day as needed. 3. Avoid heat to the injection area for 72 hours. No hot packs, saunas, or steam rooms during this time. A regular shower is OK. 4. You may immediately restart your regular medication regimen, including pain medications, anti-inflammatory, and blood thinners. 5. Please remove the sterile dressing/band-aid tonight or tomorrow morning. Do not leave it on after you have taken a shower or gotten it wet. 6. Corticosteroid side effects can occur after this injection, but they usually resolve after several days. These side effects can include flushing, hot flashes, mild palpitations, insomnia, water retention, feeling anxious/restless, or headaches. 7. While it is extremely rare to get an infection after a spinal procedure, please call the office if you develop any signs of infection. These signs include fevers/chills, severely increased pain, redness at the injections site, or any drainage from the injection site. 8. Remember that the corticosteroid benefit (long-term pain relief) from an injection can take as long as 10 days to occur. You may have a period of slightly increased pain after your injection before the cortisone takes effect. 9. You may resume all of your normal daily activities 24 hours after your injection. 10. It is OK to restart your exercise or physical therapy program as soon as you feel comfortable doing so. 11. Please complete the pain diary given to you after your injection. The information you provide on this diary is used to guide your treatment plan. 12. You should schedule a follow-up visit in 2 3 weeks to review your response to this injection. 13. Please bring your pain diary with you to this appointment. Education Materials Received: yes Belongings Returned: yes Resume all current outpatient medication(s). I understand and acknowledge receipt of the above instructions. Patient or Guardian Signature Date/Time Physician's or R.N.'s Signature Date/Time The discharge instructions have been reviewed with the patient and/or Guardian. Patient and/or Guardian signed and retained a printed copy. TO REACH DR GALEANO FOR EMERGENCY,OR PAIN IS SEVERE POST INJECTION- PLEASE CALL [phone] ; CALL 911 FOR EMERGENCY documented in this encounter* Instructions* Malissa Batista RN - 05/09/2020 You have received an injection of local anesthetic and corticosteroids. The local anesthetic effect typically last 4 6 hours. It may take 3 7 days for the corticosteroids to reach optimal effect. Please pay close attention to the following information/instructions: 1. You may not drive for 12 hours after your injection. 2. It is common to experience mild soreness at the injection site(s) for 24 48 hours. Ice is the best remedy. You may apply ice for 20 minutes at a time several times a day as needed. 3. Avoid heat to the injection area for 72 hours. No hot packs, saunas, or steam rooms during this time. A regular shower is OK. 4. You may immediately restart your regular medication regimen, including pain medications, anti-inflammatory, and blood thinners. 5. Please remove the sterile dressing/band-aid tonight or tomorrow morning. Do not leave it on after you have taken a shower or gotten it wet. 6. Corticosteroid side effects can occur after this injection, but they usually resolve after several days. These side effects can include flushing, hot flashes, mild palpitations, insomnia, water retention, feeling anxious/restless, or headaches. 7. While it is extremely rare to get an infection after a spinal procedure, please call the office if you develop any signs of infection. These signs include fevers/chills, severely increased pain, redness at the injections site, or any drainage from the injection site. 8. Remember that the corticosteroid benefit (long-term pain relief) from an injection can take as long as 10 days to occur. You may have a period of slightly increased pain after your injection before the cortisone takes effect. 9. You may resume all of your normal daily activities 24 hours after your injection. 10. It is OK to restart your exercise or physical therapy program as soon as you feel comfortable doing so. 11. Please complete the pain diary given to you after your injection. The information you provide on this diary is used to guide your treatment plan. 12. You should schedule a follow-up visit in 2 3 weeks to review your response to this injection. 13. Please bring your pain diary with you to this appointment. Education Materials Received: yes Belongings Returned: yes Resume all current outpatient medication(s). I understand and acknowledge receipt of the above instructions. Patient or Guardian Signature Date/Time Physician's or R.N.'s Signature Date/Time The discharge instructions have been reviewed with the patient and/or Guardian. Patient and/or Guardian signed and retained a printed copy. TO REACH DR GALEANO FOR EMERGENCY,OR PAIN IS SEVERE POST INJECTION- PLEASE CALL [phone] ; CALL 911 FOR EMERGENCY documented in this encounter* Instructions* Dena Rich RN - 05/23/2020 You have received an injection of local anesthetic and corticosteroids. The local anesthetic effect typically last 4 6 hours. It may take 3 7 days for the corticosteroids to reach optimal effect. Please pay close attention to the following information/instructions: 1. You may not drive for 12 hours after your injection. 2. It is common to experience mild soreness at the injection site(s) for 24 48 hours. Ice is the best remedy. You may apply ice for 20 minutes at a time several times a day as needed. 3. Avoid heat to the injection area for 72 hours. No hot packs, saunas, or steam rooms during this time. A regular shower is OK. 4. You may immediately restart your regular medication regimen, including pain medications, anti-inflammatory, and blood thinners. 5. Please remove the sterile dressing/band-aid tonight or tomorrow morning. Do not leave it on after you have taken a shower or gotten it wet. 6. Corticosteroid side effects can occur after this injection, but they usually resolve after several days. These side effects can include flushing, hot flashes, mild palpitations, insomnia, water retention, feeling anxious/restless, or headaches. 7. While it is extremely rare to get an infection after a spinal procedure, please call the office if you develop any signs of infection. These signs include fevers/chills, severely increased pain, redness at the injections site, or any drainage from the injection site. 8. Remember that the corticosteroid benefit (long-term pain relief) from an injection can take as long as 10 days to occur. You may have a period of slightly increased pain after your injection before the cortisone takes effect. 9. You may resume all of your normal daily activities 24 hours after your injection. 10. It is OK to restart your exercise or physical therapy program as soon as you feel comfortable doing so. 11. Please complete the pain diary given to you after your injection. The information you provide on this diary is used to guide your treatment plan. 12. You should schedule a follow-up visit in 2 3 weeks to review your response to this injection. 13. Please bring your pain diary with you to this appointment. Education Materials Received: yes Belongings Returned: yes Resume all current outpatient medication(s). I understand and acknowledge receipt of the above instructions. Patient or Guardian Signature Date/Time Physician's or R.N.'s Signature Date/Time The discharge instructions have been reviewed with the patient and/or Guardian. Patient and/or Guardian signed and retained a printed copy. TO REACH DR GALEANO FOR EMERGENCY,OR PAIN IS SEVERE POST INJECTION- PLEASE CALL [phone] ; CALL [phone] FOR EMERGENCY documented in this encounter* Instructions* Peri Stafford RN - 04/11/2020 You have received an injection of local anesthetic and corticosteroids. The local anesthetic effect typically last 4 6 hours. It may take 3 7 days for the corticosteroids to reach optimal effect. Please pay close attention to the following information/instructions: 1. You may not drive for 12 hours after your injection. 2. It is common to experience mild soreness at the injection site(s) for 24 48 hours. Ice is the best remedy. You may apply ice for 20 minutes at a time several times a day as needed. 3. Avoid heat to the injection area for 72 hours. No hot packs, saunas, or steam rooms during this time. A regular shower is OK. 4. You may immediately restart your regular medication regimen, including pain medications, anti-inflammatory, and blood thinners. 5. Please remove the sterile dressing/band-aid tonight or tomorrow morning. Do not leave it on after you have taken a shower or gotten it wet. 6. Corticosteroid side effects can occur after this injection, but they usually resolve after several days. These side effects can include flushing, hot flashes, mild palpitations, insomnia, water retention, feeling anxious/restless, or headaches. 7. While it is extremely rare to get an infection after a spinal procedure, please call the office if you develop any signs of infection. These signs include fevers/chills, severely increased pain, redness at the injections site, or any drainage from the injection site. 8. Remember that the corticosteroid benefit (long-term pain relief) from an injection can take as long as 10 days to occur. You may have a period of slightly increased pain after your injection before the cortisone takes effect. 9. You may resume all of your normal daily activities 24 hours after your injection. 10. It is OK to restart your exercise or physical therapy program as soon as you feel comfortable doing so. 11. Please complete the pain diary given to you after your injection. The information you provide on this diary is used to guide your treatment plan. 12. You should schedule a follow-up visit in 2 3 weeks to review your response to this injection. 13. Please bring your pain diary with you to this appointment. Education Materials Received: yes Belongings Returned: yes Resume all current outpatient medication(s). I understand and acknowledge receipt of the above instructions. Patient or Guardian Signature Date/Time Physician's or R.N.'s Signature Date/Time The discharge instructions have been reviewed with the patient and/or Guardian. Patient and/or Guardian signed and retained a printed copy. TO REACH DR GALEANO FOR EMERGENCY,OR PAIN IS SEVERE POST INJECTION- PLEASE CALL [phone] ; CALL 911 FOR EMERGENCY documented in this encounter History of Present Illness * Malissa Batista, HEAVENLY - 03/07/2020 3:17 PM EDT Discharge Criteria Outpatients must meet criteria 1 through 7. Up to restroom, void sufficient amount. Yes 1. Minimum 30 minutes after last dose of sedative medication, minimum 120 minutes after last dose of reversal agent. Yes 2. Systolic BP stable within 20 mmHg for 30 minutes & systolic BP between 90 & 180 or within 10 mmHg of baseline. Yes 3. Pulse between 60 and 100 or within 10 bpm of baseline. Yes 4. Spontaneous respiratory rate >/= 10 per minute. Yes 5. SaO2 >/= 95 or >/= baseline. Yes 6. Able to cough and swallow or return to baseline function. Yes 7. Alert and oriented or return to baseline mental status. Yes 8. Demonstrates controlled, coordinated movements, ambulates with steady gait, or return to baseline activity function. Yes 9. Minimal or no pain or nausea, or at a level tolerable and acceptable to patient. Yes 10. Takes and retains oral fluids as allowed. Yes 11. Procedural / perioperative site stable. Minimal or no bleeding. Yes 12. If GI endoscopy procedure, minimal or no abdominal distention or passing flatus. Yes 13. Written discharge instructions and emergency telephone number provided. Yes 14. Accompanied by a responsible adult. Yes Adult patient discharged from facility without responsible person meets above criteria plus the following: a) remains awake without stimulus for 30 minutes b) oriented appropriate for age c) all vital signs stable d) no significant risk of losing protective reflexes e) able to maintain pre-procedure mobility without assistance f) no nausea or dizziness g) transportation arrangements that do not require patient to operate motor Vehicle. Yes * Malissa Batista RN - 03/07/2020 2:43 PM EDT 3 band aids to each knee, clean dry intact documented in this encounter* Liss Duffy RN - 05/09/2020 1:20 PM EST Discharge Criteria Outpatients must meet criteria 1 through 7. Up to restroom, void sufficient amount. Yes 1. Minimum 30 minutes after last dose of sedative medication, minimum 120 minutes after last dose of reversal agent. Yes 2. Systolic BP stable within 20 mmHg for 30 minutes & systolic BP between 90 & 180 or within 10 mmHg of baseline. Yes 3. Pulse between 60 and 100 or within 10 bpm of baseline. Yes 4. Spontaneous respiratory rate >/= 10 per minute. Yes 5. SaO2 >/= 95 or >/= baseline. Yes 6. Able to cough and swallow or return to baseline function. Yes 7. Alert and oriented or return to baseline mental status. Yes 8. Demonstrates controlled, coordinated movements, ambulates with steady gait, or return to baseline activity function. Yes 9. Minimal or no pain or nausea, or at a level tolerable and acceptable to patient. Yes 10. Takes and retains oral fluids as allowed. Yes 11. Procedural / perioperative site stable. Minimal or no bleeding. Yes. bandaids x4 to left knee CD&I. 12. If GI endoscopy procedure, minimal or no abdominal distention or passing flatus. Yes 13. Written discharge instructions and emergency telephone number provided. Yes 14. Accompanied by a responsible adult. Yes Adult patient discharged from facility without responsible person meets above criteria plus the following: a) remains awake without stimulus for 30 minutes b) oriented appropriate for age c) all vital signs stable d) no significant risk of losing protective reflexes e) able to maintain pre-procedure mobility without assistance f) no nausea or dizziness g) transportation arrangements that do not require patient to operate motor Vehicle. Yes documented in this encounter* Malissa Batista RN - 05/23/2020 10:41 AM EST Discharge Criteria Outpatients must meet criteria 1 through 7. Up to restroom, void sufficient amount. Yes 1. Minimum 30 minutes after last dose of sedative medication, minimum 120 minutes after last dose of reversal agent. Yes 2. Systolic BP stable within 20 mmHg for 30 minutes & systolic BP between 90 & 180 or within 10 mmHg of baseline. Yes 3. Pulse between 60 and 100 or within 10 bpm of baseline. Yes 4. Spontaneous respiratory rate >/= 10 per minute. Yes 5. SaO2 >/= 95 or >/= baseline. Yes 6. Able to cough and swallow or return to baseline function. Yes 7. Alert and oriented or return to baseline mental status. Yes 8. Demonstrates controlled, coordinated movements, ambulates with steady gait, or return to baseline activity function. Yes 9. Minimal or no pain or nausea, or at a level tolerable and acceptable to patient. Yes 10. Takes and retains oral fluids as allowed. Yes 11. Procedural / perioperative site stable. Minimal or no bleeding. Yes 12. If GI endoscopy procedure, minimal or no abdominal distention or passing flatus. Yes 13. Written discharge instructions and emergency telephone number provided. Yes 14. Accompanied by a responsible adult. Yes Adult patient discharged from facility without responsible person meets above criteria plus the following: a) remains awake without stimulus for 30 minutes b) oriented appropriate for age c) all vital signs stable d) no significant risk of losing protective reflexes e) able to maintain pre-procedure mobility without assistance f) no nausea or dizziness g) transportation arrangements that do not require patient to operate motor Vehicle. Yes * Dena Rich RN - 05/23/2020 7:02 AM EST [id number]. documented in this encounter* Peri Stafford RN - 04/11/2020 3:48 PM EST Pt has remained alert and oriented, tolerated fluids and food, VS WNL, pt's gait is steady as well; * Peri Stafford RN - 04/11/2020 3:17 PM EST Pt requesting jello and crackers after tolerating water, pt presently consuming the above at this time; * Peri Stafford RN - 04/11/2020 3:17 PM EST 3 Dressings/bandaids noted to each knee, all are dry and intact, no drng noted; documented in this encounter Summary Purpose Family History No Family History Records Found Relationship Condition Age at Onset Recorded Date/T stephanie Not Specified Malignant neoplasm of skin Unknown father Diabetes mellitus Unknown Chief Complaint and Reason for Visit Chief Complaint M79.1 M25.50 Additional Source Comments Reason for Visit (unrecogniz ed section and content) Status Reason Specialty Diagnoses / Procedures Referre d By Contact Referred To Contact Closed Radiology Diagnoses Encounter for screening mammogram for malignant neoplasm of breast Procedures HC MAMMO SCREENING INCL CAD IF PERF Zayra Sloan, DO [address] [place] [address] [facility] [address] [place] [address] Reason Comments Back Pain patient states that her back pain started 6 days ago, no known injury, the patient was lifting a laundry basket today and the pain got worse. patient states that the pain radiates down the right leg. Status Reason Specialty Diagnoses / Procedures Referre d By Contact Referred To Contact Diagnoses Unilateral primary osteoarthritis, unspecified knee ARTHRITIS OF KNEE Procedures HI INJECTION AA&/STRD OTHER PERIPHERAL NERVE/BRANCH GENICULAR NERVE BLOCK BILATERAL Sukhdev Galeano MD [address] [facility] [address] [place] [address] [employer] Status Reason Specialty Diagnoses / Procedures Re ferred By Contact Referred To Contact Diagnoses Bilateral primary osteoarthritis of knee arthritis of the left knee Procedures HI INJECTION AA&/STRD OTHER PERIPHERAL NERVE/BRANCH LEFT KNEE RFA Sukhdev Galeano MD [address] [facility] [address] [place] [address] [employer] Status Reason Specialty Diagnoses / Procedures Re ferred By Contact Referred To Contact Diagnoses Bilateral primary osteoarthritis of knee ARTHRITIS OF KNEE Procedures HI INJECTION AA&/STRD OTHER PERIPHERAL NERVE/BRANCH COOL RFA- RIGHT KNEE Sukhdev Galeano MD [address] [address] [place] [address] [employer] Status Reason Specialty Diagnoses / Procedures Re ferred By Contact Referred To Contact Diagnoses Bilateral primary osteoarthritis of knee ARTHRITIC BILATERAL KNEES Procedures HI OFFICE/OUTPT VISIT,PROCEDURE ONLY HI INJECTION AA&/STRD OTHER PERIPHERAL NERVE/BRANCH GENICULAR NERVE BLOCK BILATERAL KNEES Sukhdev Galeano MD [address] [facility] [address] [place] [address] [employer] Reason Comments Allergic Reaction pt reports starting adipex 8 days ago and has been having itching all over since yesterday. she did hold her medication today. Status Reason Specialty Diagnoses / Procedures Re ferred By Contact Referred To Contact Diagnoses Epigastric pain Gastro-esophageal reflux disease without esophagitis EPIGASTRIC PAIN, REFLUX SYMPTOMS Procedures HI OFFICE/OUTPT VISIT,PROCEDURE ONLY HI ESOPHAGOGASTRODUODENOSCOPY TRANSORAL DIAGNOSTIC EGD ESOPHAGOGASTRODUODENOSCOPY Darien Waters MD [address] [facility] [address] [place] [address] [facility] Reason Comments Rash Complains of itching rash on inner thighs Specialty Diagnoses / Procedures Referred By Contac t Referred To Contact Radiology Diagnoses Chronic bilateral low back pain with bilateral sciatica M54.42, M54.41, G89.29 (ICD-10-CM) - Chronic bilateral low back pain with bilateral sciatica Procedures MRI LUMBAR SPINE WO CONTRAST HI MRI, LUMBAR SPINE [id number] - HI MRI, LUMBAR SPINE Zayra Sloan, DO [address] [place] [address] Referral ID Status Reason Start Date Expiration Date Visits Re quested Visits Authorized [id number] Closed 05/15/2022 07/13/2022 1 1 Reason Comments Pain Specialty Diagnoses / Procedures Referred By Contac t Referred To Contact Orthopaedics Diagnoses Spinal stenosis, lumbar region with neurogenic claudication Other spondylosis with radiculopathy, lumbar region Sacroiliitis Pain in hip Elliot Zheng MD [address] [place] [id number] Keila Hemphill MD [address] [place] [address] Referral ID Status Reason Start Date Expiration Date V isits Requested Visits Authorized [id number] Pending Review 2022 07/11/2023 1 1 Specialty Diagnoses / Procedures Referred By Contac t Referred To Contact Neurosurgery Diagnoses Spinal stenosis of lumbar region with neurogenic claudication Zayra Sloan, DO [address] [place] [address] Elliot Zheng MD [address] [place] [address] Referral ID Status Reason Start Date Expiration Date V isits Requested Visits Authorized [id number] Open Specialty Services Required 05/20/2022 11/16/2022 1 2 Specialty Diagnoses / Procedures Referred By Contac t Referred To Contact Diagnoses Osteoarthritis of both sacroiliac joints Pain of both sacroiliac joints Procedures US IMAGING FOR ORTHO Keila Hemphill MD [address] [facility] [address] [place] [address] Referral ID Status Reason Start Date Expiration Date V isits Requested Visits Authorized [id number] New Request 08/14/2022 09/08/2023 1 1 Specialty Diagnoses / Procedures Referred By Contac t Referred To Contact Diagnoses Post endometrial ablation syndrome Pelvic pain in female POST ABLATION SYNDROME, SEVERE PELVIC PAIN Procedures HI LAPS TOTAL HYSTERECT 250 GM/< W/RMVL TUBE/OVARY XI ROBOTIC LAPAROSCOPIC TOTAL HYSTERECTOMY, BSO, POSSIBLE EXPLORATORY LAPAROTOMY, OTHER NECESSARY PROCEDURES Clemencia Campos MD [address] [facility] [address] [place] [address] [facility] [address] [place] [address] Referral ID Status Reason Start Date Expiration Date Visits Re quested Visits Authorized [id number] 1 1 Reason Comments Pain Follow-up Reason Comments Pain Follow-up Joint Injection Reason Comments Abdominal Pain Patient recently had a hysterectomy 2 weeks ago on the in [place]. Patient had drain removed on Wednesday, patient now has lower abdominal pain since drain removed. Patient had taken tylenol this AM. Reason Comments Follow-up Left Sacroiliac Join t Reason Comments Pain Follow-up Joint Injection Specialty Diagnoses / Procedures Referred By Contac t Referred To Contact Diagnoses Sacroiliitis Sacroiliitis [M46.1] Procedures HI ARTHRODESIS SACROILIAC JOINT PERCUTANEOUS CHG FLUOROSCOPY UP TO 1 HOUR PHYSICIAN/QHP TIME HI IMPLANT/INSERT DEVICE, NOC PROSTHETIC IMPLANT NOS ARTHRODESIS SACROILIAC JOINT MINIMALLY INVASIVE W/ TRANSFIXING DEVICE FLUOROSCOPY IN OR Elliot Zheng MD [address] [facility] [address] [place] [address] Referral ID Status Reason Start Date Expiration Date Visits Re quested Visits Authorized [id number] 02/05/2023 1 1 Specialty Diagnoses / Procedures Referred By Contac t Referred To Contact Diagnoses Spinal stenosis of lumbar region with neurogenic claudication Spinal stenosis of lumbar region with neurogenic claudication [M48.062] Procedures HI INJECTION AA&/STRD OTHER PERIPHERAL NERVE/BRANCH HI INJECT TRIGGER POINT,SI/MULT, 1-2 MUSC INJECTION MUSCLE TRIGGER POINT 1 OR 2 MUSCLES Elliot Zheng MD [facility] [place] [address] Referral ID Status Reason Start Date Expiration Date Visits Re quested Visits Authorized [id number] 06/11/2023 1 1 Specialty Diagnoses / Procedures Referred By Contac t Referred To Contact Orthopaedics Diagnoses Sacroiliitis, not elsewhere classified Elliot Zheng MD [address] [place] [address] Keila Hemphill MD [address] [place] [address] Referral ID Status Reason Start Date Expiration Date V isits Requested Visits Authorized [id number] New Request 07/28/2023 08/21/2024 1 1 Specialty Diagnoses / Procedures Referred By Contac t Referred To Contact Diagnoses Pain in right hip Procedures MRI PELVIS WITHOUT CONTRAST HI MRI, PELVIS, W/O CONTRAST Elliot Zheng MD [address] [place] [address] [facility] Referral ID Status Reason Start Date Expiration Date Visits Re quested Visits Authorized [id number] Closed 07/27/2023 08/20/2024 1 1 Specialty Diagnoses / Procedures Referred By Contac t Referred To Contact Diagnoses Spinal stenosis, lumbar region with neurogenic claudication Procedures MRI SPINE LUMBAR WITHOUT CONTRAST HI MRI, LUMBAR SPINE Elliot Zheng MD [address] [place] [address] [facility] Referral ID Status Reason Start Date Expiration Date Visits Re quested Visits Authorized [id number] Closed 07/27/2023 08/20/2024 1 1 Reason Comments Knee Pain Patient complains of right knee pain that has been ongoing for the past few months. States Wednesday dog jumped on patient and aggravated the knee. Specialty Diagnoses / Procedures Referred By Contac t Referred To Contact Radiology Diagnoses Breast cancer screening by mammogram Procedures DANIELLE NANO DIGITAL SCREEN BILATERAL Tino Sánchez PA-C [address] [facility] [address] [place] [address] Referral ID Status Reason Start Date Expiration Date Visits Re quested Visits Authorized [id number] Closed 01/05/2024 01/04/2025 1 1 INFORMATION SOURCE (unrecogn ized section and content) DATE CREATED AUTHOR 04/11/2021 [facility] DATE CREATED AUTHOR AUTHOR'S ORGANIZ ATION 05/21/2021 [facility] DATE CREATED AUTHOR AUTHOR'S ORGANIZ ATION 02/06/2022 [facility] DATE CREATED AUTHOR AUTHOR'S ORGANIZ ATION 06/24/2022 [facility] DATE CREATED AUTHOR AUTHOR'S ORGANIZ ATION 2023 [facility] DATE CREATED AUTHOR AUTHOR'S ORGANIZ ATION 08/02/2023 [facility] DATE CREATED AUTHOR AUTHOR'S ORGANIZ ATION 08/11/2023 [facility] DATE CREATED AUTHOR AUTHOR'S ORGANIZ ATION 11/03/2023 [facility] DATE CREATED AUTHOR AUTHOR'S ORGANIZ ATION [facility]20[facility] DATE CREATED AUTHOR AUTHOR'S ORGANIZ ATION 02/20/2024 [facility] DATE CREATED AUTHOR AUTHOR'S ORGANIZ ATION 02/28/2024 [facility] DATE CREATED AUTHOR AUTHOR'S ORGANIZ ATION 03/21/2024 [facility] Ordered Prescriptions (unrec ognized section and content) Prescription Sig Dispensed Refills Start Date End Da te hydrOXYzine (VISTARIL) 25 MG capsule Take 1 capsule by mouth 3 times daily as needed for Itching 20 capsule 0 06/01/2021 06/15/2021 Prescription Sig Dispensed Refills Start Date End Da te HYDROcodone-acetaminophen (NORCO) 5-325 MG per tabletIndications:Dysmeno rrhea Take 1 tablet by mouth every 6 hours as needed for Pain for up to 3 days. 10 tablet 0 12/10/2021 12/13/2021 Prescription Sig Dispensed Refills Start Date End Da te hydrOXYzine HCl (ATARAX) 25 MG tablet Take 1-2 tablets by mouth every 8 hours as needed for Itching 30 tablet 0 12/20/2021 predniSONE (DELTASONE) 50 MG tablet Take 1 tablet by mouth in the morning for 4 days. 4 tablet 0 12/21/2021 12/25/2021 Prescription Sig Dispensed Refills Start Date End Da te simethicone (MYLICON) 80 MG chewable tablet Take 1 tablet by mouth 4 times daily as needed for Flatulence 90 tablet 0 09/08/2022 ondansetron (ZOFRAN) 4 MG tablet Take 1 tablet by mouth every 8 hours as needed for Nausea or Vomiting 30 tablet 0 09/08/2022 sennosides-docusate sodium (SENOKOT-S) 8.6-50 MG tablet Take 1 tablet by mouth daily 30 tablet 0 09/08/2022 oxyCODONE (ROXICODONE) 5 MG immediate release tabletIndications:Posto perative state Take 1 tablet by mouth every 6 hours as needed for Pain for up to 5 days. Intended supply: 5 days. Take lowest dose possible to manage pain Max Daily Amount: 20 mg 20 tablet 0 09/08/2022 09/13/2022 acetaminophen (TYLENOL) 500 MG tablet Take 2 tablets by mouth every 6 hours as needed for Pain 60 tablet 1 09/08/2022 Prescription Sig Dispensed Refills Start Date End Da te levoFLOXacin (LEVAQUIN) 750 MG tablet Take 1 tablet by mouth daily for 7 days 7 tablet 0 09/23/2022 09/30/2022 Prescription Sig Dispensed Refills Start Date End Da te oxyCODONE-acetaminophen (ENDOCET) 5-325 MG per tabletIndications:Tricom partment osteoarthritis of right knee Take 1 tablet by mouth every 6 hours as needed for Pain for up to 3 days. Intended supply: 3 days. Take lowest dose possible to manage pain Max Daily Amount: 4 tablets 12 tablet 0 12/24/2023 12/27/2023 diclofenac sodium (VOLTAREN) 1 % GEL Apply 4 g topically 4 times daily 50 g 0 12/24/2023 naproxen (NAPROSYN) 500 MG tablet Take 1 tablet by mouth 2 times daily (with meals) 180 tablet 1 12/24/2023 methylPREDNISolone (MEDROL, PETERSON,) 4 MG tablet Take by mouth. 1 kit 0 12/24/2023 12/30/2023 HYDROcodone-acetaminophe n (LORCET) 5-325 MG per tabletIndications:Tricom partment osteoarthritis of right knee Take 1 tablet by mouth every 4 hours as needed for Pain for up to 3 days. Intended supply: 3 days. Take lowest dose possible to manage pain Max Daily Amount: 6 tablets 18 tablet 0 12/24/2023 12/24/2023 Scheduled Active and Recently Administ ered Medications (unrecognized section and content) Medication Order 05/30/2021 05/31/2021 06/01/2021 hydrOXYzine (VISTARIL) capsule 50 mg (COMPLETED) 50 mg, Oral, ONCE, On Wed06/01/21 at 1500, For 1 dose 1502 (Given - Provid er: Martha Ahumada RN) Scheduled Medication Order 12/08/2021 12/09/2021 12/10/2021 acetaminophen (TYLENOL) tablet 650 mg (COMPLETED) 650 mg, Oral, ONCE, 1 dose, On Wed12/10/21 at 1000, Maximum dose of acetaminophen is 4000 mg from all sources in 24 hours., Pre-op (day of surgery) 1005 (Given - Provid er: Candi Jones RN) clindamycin (CLEOCIN) 900 mg in dextrose 5 % 50 mL IVPB (COMPLETED) 900 mg, IntraVENous, ONCE, 1 dose, On Wed12/10/21 at 1000, Antimicrobial Indications: Surgical Prophylaxis, Pre-op (day of surgery) 1152 (Given - Provid er: Brittany Lucas, [employer] TEAM [employer]BER - CARPET TILE LAYER) dimenhyDRINATE (DRAMAMINE) tablet 50 mg (COMPLETED) 50 mg, Oral, ONCE, 1 dose, On Wed12/10/21 at 1000, Pre-op (day of surgery) 1005 (Given - Provid er: Candi Jones RN) gentamicin (GARAMYCIN) 500 mg in dextrose 5 % 250 mL IVPB (COMPLETED) 500 mg, IntraVENous, ONCE, 1 dose, On Wed12/10/21 at 1000, Antimicrobial Indications: Surgical Prophylaxis, Pre-op (day of surgery) 1008 (New Bag - Prov ider: Candi Jones RN)1108 (Due: Stopped - Provider: Candi Jones RN) ketorolac (TORADOL) injection 30 mg Ketorolac is contraindicated in patients with advanced renal impairment and in patients at risk of renal failure due to volume depletion. For 65 years of age and older OR weight less than 50 kg, use 15 mg IV every 6 hours; MAX dose: 60 mg/day. Dose greater than 30 mg must be administered via intramuscular route. Do not administer for more than 5 days., 30 mg, IntraVENous, EVERY 6 HOURS, 4 doses, First dose on Wed12/10/21 at 1245, Last dose on Mirian 12/11/21 at 0645, Discontinue when able to take PO ibuprofen., Post-op 1245 (Due)1845 (Due) sodium chloride flush 0.9 % injection 5-40 mL 5-40 mL, IntraVENous, EVERY 12 HOURS SCHEDULED (2 times per day), First dose on Wed12/10/21 at 2100, Until Discontinued, For Line Patency: Peripheral IV = 5 mL; Midline or Central Line = 10 mL/lumen. If following IV push medication, administer flush at same rate as the IV push. Flush volume is determined by type of infusion therapy being given. For non-viscous solutions use: Peripheral IV = 5 mL Midline or Central Line = 10 mL/lumen For viscous solutions (i.e. blood components, parenteral nutrition, contrast media, or after obtaining blood sample) use: Peripheral IV = 10 mL Midline or Central Line = 20 mL/lumen, Post-op 2100 (Due) sodium chloride flush 0.9 % injection 5-40 mL 5-40 mL, IntraVENous, EVERY 12 HOURS SCHEDULED (2 times per day), First dose on Wed12/10/21 at 2100, Until Discontinued, For Line Patency: Peripheral IV = 5 mL; Midline or Central Line = 10 mL/lumen. If following IV push medication, administer flush at same rate as the IV push. Flush volume is determined by type of infusion therapy being given. For non-viscous solutions use: Peripheral IV = 5 mL Midline or Central Line = 10 mL/lumen For viscous solutions (i.e. blood components, parenteral nutrition, contrast media, or after obtaining blood sample) use: Peripheral IV = 10 mL Midline or Central Line = 20 mL/lumen, PACU only 2100 (Due) Continuous Medication Order 12/08/2021 12/09/2021 12/10/2021 lactated ringers infusion IntraVENous, at 60 mL/hr, CONTINUOUS, Starting on Wed12/10/21 at 1000, Pre-op (day of surgery) 1007 (New Bag - Prov ider: Candi Jones RN)1132 (NoRateChange - Provider: VIRGINIE Sloan CRNA)1214 (Paused - Provider: VIRGINIE Sloan CRNA - Comment: Switch to gravity)1215 (Restarted - Provider: VIRGINIE Sloan CRNA)1216 (Stopped - Provider: IVRGINIE Sloan CRNA) lactated ringers infusion IntraVENous, at 125 mL/hr, CONTINUOUS, Starting on Wed12/10/21 at 1245, Post-op 1245 (Due) PRN Medication Order 12/08/2021 12/09/2021 12/10/2021 0.9 % sodium chloride infusion IntraVENous, at 5-250 mL/hr, PRN, if patient receiving piggyback infusions and maintenance fluids are not ordered OR KVO fluids to protect IV site / prevent frequent line interruptions/ long duration, Starting on Wed12/10/21 at 1229, For piggyback infusion, administer at same rate as piggyback for a total of 25 mL. Enter 25 mL into dose field and piggyback rate into rate field of order. If piggyback is infusing at a rate less than 100 mL/hr, enter 25 mL into dose field and 100 mL/hr into rate field of order. For KVO fluids, enter rate of 20 mL/hr or less into rate field of order., Post-op 0.9 % sodium chloride infusion IntraVENous, at 5-250 mL/hr, PRN, if patient receiving piggyback infusions and maintenance fluids are not ordered OR KVO fluids to protect IV site / prevent frequent line interruptions/ long duration, Starting on Wed12/10/21 at 1233, For piggyback infusion, administer at same rate as piggyback for a total of 25 mL. Enter 25 mL into dose field and piggyback rate into rate field of order. If piggyback is infusing at a rate less than 100 mL/hr, enter 25 mL into dose field and 100 mL/hr into rate field of order. For KVO fluids, enter rate of 20 mL/hr or less into rate field of order., PACU only fentaNYL (SUBLIMAZE) injection 50 mcg (COMPLETED) 50 mcg, IntraVENous, EVERY 5 MIN PRN, 2 doses, Starting on Wed12/10/21 at 1233, Until Discontinued, Pain Severe (7-10), For Phase I. If Phase II oral narcotics have been administered in the last 60 minutes, do not administer IV narcotics unless specifically approved by provider., PACU only 1237 (Given - Provid er: Candi Jones RN)1243 (Given - Provider: Candi Jones RN) hydrALAZINE (APRESOLINE) injection 10 mg(Linked Group 1) 10 mg, IntraVENous, EVERY 15 MIN PRN, 2 doses, Starting on Wed12/10/21 at 1233, Until Discontinued, High Blood Pressure, for SBP greater than 180 mmHg for 2 consecutive measurements taken from different sites, If heart rate is greater than 60 bpm, hold hydralazine and use labetalol if ordered, otherwise contact provider. Inform provider if SBP is still greater than 180 mmHg 10 minutes after second antihypertensive dose is administered., PACU only HYDROcodone-acetaminophen (NORCO) 5-325 MG per tablet 1 tablet 1 tablet, Oral, EVERY 6 HOURS PRN, Starting on Wed12/10/21 at 1234, Until Discontinued, Pain Moderate (4-6), Maximum dose of acetaminophen is 4000 mg from all sources in 24 hours. 1326 (Given - Provid er: Mira Mcwilliams RN) labetalol (NORMODYNE;TRANDATE) injection 10 mg(Linked Group 1) 10 mg, IntraVENous, EVERY 15 MIN PRN, 2 doses, Starting on Wed12/10/21 at 1233, Until Discontinued, High Blood Pressure, for SBP greater than 180 mmHg for 2 consecutive measurements taken from different sites., If heart rate is 60 bpm or less hold labetalol and use hydralazine if ordered, otherwise contact provider. Inform provider if SBP is still greater than 180 mmHg, 10 minutes after second antihypertensive dose is administered., PACU only metoclopramide (REGLAN) injection 10 mg 10 mg, IntraVENous, ONCE PRN, 1 dose, Starting on Wed12/10/21 at 1233, Until Wed12/10/21 at 2359, Nausea, Initial antiemetic therapy., PACU only ondansetron (ZOFRAN) injection 4 mg(Linked Group 2) 4 mg, IntraVENous, EVERY 6 HOURS PRN, Starting on Wed12/10/21 at 1229, Until Discontinued, Nausea, Vomiting, Administer if oral route cannot be used., Post-op ondansetron (ZOFRAN) injection 4 mg 4 mg, IntraVENous, ONCE PRN, 1 dose, Starting on Wed12/10/21 at 1233, Until Wed12/10/21 at 2359, Nausea, Secondary antiemetic therapy., PACU only ondansetron (ZOFRAN-ODT) disintegrating tablet 4 mg(Linked Group 2) 4 mg, Oral, EVERY 8 HOURS PRN, Starting on Wed12/10/21 at 1229, Until Discontinued, Nausea, Vomiting, Post-op sodium chloride flush 0.9 % injection 5-40 mL 5-40 mL, IntraVENous, PRN, Starting on Wed12/10/21 at 1229, Until Discontinued, Line Care, After every IV line use, For Line Patency: Peripheral IV = 5 mL; Midline or Central Line = 10 mL/lumen. If following IV push medication, administer flush at same rate as the IV push. Flush volume is determined by type of infusion therapy being given. For non-viscous solutions use: Peripheral IV = 5 mL Midline or Central Line = 10 mL/lumen For viscous solutions (i.e. blood components, parenteral nutrition, contrast media, or after obtaining blood sample) use: Peripheral IV = 10 mL Midline or Central Line = 20 mL/lumen, Post-op sodium chloride flush 0.9 % injection 5-40 mL 5-40 mL, IntraVENous, PRN, Starting on Wed12/10/21 at 1233, Until Discontinued, Line Care, After every IV line use, For Line Patency: Peripheral IV = 5 mL; Midline or Central Line = 10 mL/lumen. If following IV push medication, administer flush at same rate as the IV push. Flush volume is determined by type of infusion therapy being given. For non-viscous solutions use: Peripheral IV = 5 mL Midline or Central Line = 10 mL/lumen For viscous solutions (i.e. blood components, parenteral nutrition, contrast media, or after obtaining blood sample) use: Peripheral IV = 10 mL Midline or Central Line = 20 mL/lumen, PACU only traMADol (ULTRAM) tablet 50 mg 50 mg, Oral, ONCE PRN, 1 dose, Starting on Wed12/10/21 at 1233, Until Wed12/10/21 at 2359, Pain Moderate (4-6), Pain Severe (7-10), PHASE II, PACU only Linked Groups Order Group 1: labetalol (NORMODYNE;TRANDATE) injection 10 mgJump to med 10 mg, IntraVENous, EVERY 15 MIN PRN, 2 doses, Starting on Wed12/10/21 at 1233, Until Discontinued, High Blood Pressure, for SBP greater than 180 mmHg for 2 consecutive measurements taken from different sites.
If heart rate is 60 bpm or less hold labetalol and use hydralazine if ordered, otherwise contact provider. Inform provider if SBP is still greater than 180 mmHg, 10 minutes after second antihypertensive dose is administered.
PACU only Or hydrALAZINE (APRESOLINE) injection 10 mgJump to med 10 mg, IntraVENous, EVERY 15 MIN PRN, 2 doses, Starting on Wed12/10/21 at 1233, Until Discontinued, High Blood Pressure, for SBP greater than 180 mmHg for 2 consecutive measurements taken from different sites
If heart rate is greater than 60 bpm, hold hydralazine and use labetalol if ordered, otherwise contact provider. Inform provider if SBP is still greater than 180 mmHg 10 minutes after second antihypertensive dose is administered.
PACU only Group 2: ondansetron (ZOFRAN-ODT) disintegrating tablet 4 mgJump to med 4 mg, Oral, EVERY 8 HOURS PRN, Starting on Wed12/10/21 at 1229, Until Discontinued, Nausea, Vomiting, Post-op Or ondansetron (ZOFRAN) injection 4 mgJump to med 4 mg, IntraVENous, EVERY 6 HOURS PRN, Starting on Wed12/10/21 at 1229, Until Discontinued, Nausea, Vomiting
Administer if oral route cannot be used.
Post-op Scheduled Medication Order 12/18/2021 12/19/2021 12/20/2021 predniSONE (DELTASONE) tablet 50 mg (COMPLETED) 50 mg, Oral, ONCE, 1 dose, On 12/20/21 at 1300 1305 (Given - Provid er: Johanna Gregory RN) Scheduled Medication Order 09/07/2022 09/08/2022 09/09/2022 acetaminophen (TYLENOL) tablet 1,000 mg 1,000 mg, Oral, EVERY 6 HOURS, First dose on Wed09/08/22 at 1315, Until Discontinued, Maximum dose of acetaminophen is 4000 mg from all sources in 24 hours., Post-op 1343 (Given - Provider: Brittany Cooney RN)1927 (Given - Provider: Brittany Cooney RN) 0046 (Given - Provider: Margarita Yeh RN)0624 (Given - Provider: Margarita Yeh RN)1218 (Not Given - Provider: Sanna Stoner RN - Reason: Patient/family refused - Comment: discharged)1914 (Due) ceFAZolin (ANCEF) 3000 mg in sterile water 30 mL IV syringe (COMPLETED) 3,000 mg, IntraVENous, CLERICAL OFFICE TO O.R., 1 dose, On Wed09/08/22 at 0645, Antimicrobial Indications: Surgical Prophylaxis, Administer within 1 hour prior to incision. Administer over 5 mins., Pre-op (day of surgery) 0816 (Given - Provider: Melissa Marcelino APRN - CARPET TILE LAYER) celecoxib (CELEBREX) capsule 200 mg 200 mg, Oral, 2 TIMES DAILY, First dose on Wed09/09/22 at 0900, Until Discontinued, Post-op 0839 (Given - Provid er: Sanna Stoner RN)2099 (Due) enoxaparin (LOVENOX) injection 40 mg 40 mg, SubCUTAneous, 2 times daily, First dose on Wed09/09/22 at 0900, Until Discontinued, Indication of Use: Prophylaxis-DVT/PE, Pharmacy to dose if renal insufficiency present., Post-op 08 (Not Given - Provider: Sanna Stoner RN - Reason: Patient/family refused)2099 (Due) gabapentin (NEURONTIN) capsule 300 mg 300 mg, Oral, NIGHTLY, First dose on Wed09/08/22 at 2100, Until Discontinued, Post-op 220 (Given - Provider: Margarita Yeh RN) 2099 (Due) insulin lispro (HUMALOG) injection vial 0-4 Units 0-4 Units, SubCUTAneous, NIGHTLY, First dose on Wed09/08/22 at 2100, Until Discontinued, If continuous tube feedings/TPN/NPO, give correction dose based on result, no reduction in dose. If eating or bolus tube feeding: Corrective Bedtime Algorithm Glucose: Dose: 70-299 No Insulin 300-349 4 Units Over 349 4 Units and notify physician, Post-op 2035 (Not Given - Provider: Margarita Yeh RN - Reason: Order parameters not met) 2100 (Due) insulin lispro (HUMALOG) injection vial 0-8 Units 0-8 Units, SubCUTAneous, 3 TIMES DAILY WITH MEALS, First dose on Wed09/08/22 at 1315, Until Discontinued, Medium Dose Corrective Algorithm Glucose: Dose: 70-199 No Insulin 200-249 2 Units 250-299 4 Units 300-349 6 Units Over 349 8 Units and notify physician, Post-op 1343 (Given - Provider: Brittany Cooney RN)1807 (Not Given - Provider: Brittany Cooney RN - Reason: Order parameters not met) 0839 (Not Given - Provider: Sanna Stoner RN - Reason: Order parameters not met)1259 (Not Given - Provider: Sanna Stoner RN - Reason: Order parameters not met)1700 (Due) ketorolac (TORADOL) injection 30 mg (COMPLETED) 30 mg, IntraVENous, EVERY 6 HOURS, 3 doses, First dose on Wed09/08/22 at 1215, Last dose on Wed09/09/22 at 0015, Do not administer for more than 5 days., Post-op 1213 (Given - Provider: Brionna Garland RN)1810 (Given - Provider: Brittany Cooney RN) 0047 (Given - Provider: Margarita Yeh RN) magnesium hydroxide (MILK OF MAGNESIA) 400 MG/5ML suspension 30 mL 30 mL, Oral, DAILY, First dose on Wed09/09/22 at 0900, Until Discontinued, Post-op 0815 (Not Given - Provider: Sanna Stoner RN - Reason: Other - Comment: pt passing gas) montelukast (SINGULAIR) tablet 10 mg 10 mg, Oral, NIGHTLY, First dose on Wed09/08/22 at 2100, Until Discontinued, Post-op 2038 (Given - Provider: Margarita Yeh RN) 2099 (Due) pantoprazole (PROTONIX) tablet 40 mg 40 mg, Oral, 2 TIMES DAILY, First dose on Wed09/08/22 at 2100, Until Discontinued, Do not crush or break., Post-op 2037 (Given - Provider: Margarita Yeh RN) 08 (Given - Provider: Sanna Stoner RN)2099 (Due) PARoxetine (PAXIL) tablet 30 mg 30 mg, Oral, EVERY MORNING, First dose on Wed09/09/22 at 0900, Until Discontinued, Post-op 838 (Given - Provid er: Sanna Stoner RN) sennosides-docusate sodium (SENOKOT-S) 8.6-50 MG tablet 2 tablet 2 tablet, Oral, 2 times daily, First dose on Wed09/08/22 at 2100, Until Discontinued, Post-op 2037 (Given - Provider: Margarita Yeh RN) 838 (Given - Provider: Sanna Stoner RN)2099 (Due) sodium chloride flush 0.9 % injection 5-40 mL 5-40 mL, IntraVENous, EVERY 12 HOURS SCHEDULED (2 times per day), First dose on Wed09/08/22 at 2100, Until Discontinued, For Line Patency: Peripheral IV = 5 mL; Midline or Central Line = 10 mL/lumen. If following IV push medication, administer flush at same rate as the IV push. Flush volume is determined by type of infusion therapy being given. For non-viscous solutions use: Peripheral IV = 5 mL Midline or Central Line = 10 mL/lumen For viscous solutions (i.e. blood components, parenteral nutrition, contrast media, or after obtaining blood sample) use: Peripheral IV = 10 mL Midline or Central Line = 20 mL/lumen, Post-op 2038 (Not Given - Provider: Margarita Yeh RN - Reason: IV Fluid Infusing) 0840 (Not Given - Provider: Sanna Stoner RN - Reason: IV Fluid Infusing)2100 (Due) verapamil (CALAN SR) extended release tablet 240 mg 240 mg, Oral, DAILY, First dose on Wed09/09/22 at 0900, Until Discontinued, Tablet may be divided, but do not crush or break., Post-op 0839 (Given - Provid er: Sanna Stoner RN) Continuous Medication Order 09/07/2022 09/08/2022 09/09/2022 0.9 % sodium chloride infusion (CANCELED) IntraVENous, at 125 mL/hr, CONTINUOUS, Starting on Wed09/08/22 at 0645, Pre-op (day of surgery) 0656 (New Bag - Provider: Jacque Perry RN)0726 (NoRateChange - Provider: VIRGINIE Cherry CRNA)0907 (Paused - Provider: VIRGINIE Cherry CRNA - Comment: Switch to gravity)0908 (Restarted - Provider: VIRGINIE Cherry CRNA)1013 (Anesthesia Volume Adjustment - Provider: VIRGINIE Cherry CRNA)1046 (Anesthesia Volume Adjustment - Provider: VIRGINIE Cherry CRNA)1059 (New Bag - Provider: VIRGINIE Cherry CRNA) 1020 (Stopped - Provider: Sanna Stoner RN) 0.9 % sodium chloride infusion (CANCELED) IntraVENous, at 125 mL/hr, CONTINUOUS, Starting on Wed09/08/22 at 1315, Post-op 1314 (New Bag - Provider: Brittany Cooney RN)1823 (New Bag - Provider: Brittany Coonye RN)1823 (Rate/Dose Verify - Provider: Brittany Cooney RN)1953 (Rate/Dose Verify - Provider: Brittany Cooney RN) 0049 (New Bag - Provider: Margarita Yeh RN)1019 (Stopped - Provider: Sanna Stoner RN) PRN Medication Order 09/07/2022 09/08/2022 09/09/2022 0.9 % sodium chloride infusion IntraVENous, at 5-250 mL/hr, PRN, if patient receiving piggyback infusions and maintenance fluids are not ordered OR KVO fluids to protect IV site / prevent frequent line interruptions/ long duration, Starting on Wed09/08/22 at 1254, For piggyback infusion, administer at same rate as piggyback for a total of 25 mL. Enter 25 mL into dose field and piggyback rate into rate field of order. If piggyback is infusing at a rate less than 100 mL/hr, enter 25 mL into dose field and 100 mL/hr into rate field of order. For KVO fluids, enter rate of 20 mL/hr or less into rate field of order., Post-op albuterol sulfate HFA (PROVENTIL;VENTOLIN;PROAIR) 108 (90 Base) MCG/ACT inhaler 2 puff 2 puff, Inhalation, EVERY 6 HOURS PRN, Starting on Wed09/08/22 at 1254, Until Discontinued, Wheezing, Initiate RT Bronchodilator Protocol: No, Post-op calcium carbonate (TUMS) chewable tablet 1,000 mg 1,000 mg, Oral, 3 TIMES DAILY PRN, Starting on Wed09/08/22 at 1254, Until Discontinued, Heartburn, Post-op dextrose 10 % infusion IntraVENous, at 100 mL/hr, CONTINUOUS PRN, if blood glucose remains LESS THAN 70 mg/dL after 2 dextrose 10% intravenous boluses or administration of glucagon, Starting on Wed09/08/22 at 1254, If blood glucose fails to stabilize after 2 dextrose 10% intravenous boluses or glucagon administration, start dextrose 10% infusion at 100 mL/hour and repeat blood glucose at 30 and 60 minutes. If blood glucose is GREATER THAN 70 mg/dL after 60 minutes, discontinue dextrose 10% infusion., Post-op dextrose bolus 10% 125 mL(Linked Group 1) 125 mL, IntraVENous, at 937.5 mL/hr, Administer over 8 Minutes, PRN, Other, Blood glucose 40 - 69 mg/dL and patient NOT ALERT or NPO, Starting on Wed09/08/22 at 1254, Repeat blood glucose in 15 minutes. If blood glucose remains LESS THAN 70 mg/dL, repeat treatment and recheck blood glucose in 15 minutes x 2. If using glycemic management system, dose as instructed per system. If blood glucose remains LESS THAN 70 mg/dL after 2 intravenous boluses start dextrose 10% at 100 mL/hour and notify provider., Post-op dextrose bolus 10% 250 mL(Linked Group 1) 250 mL, IntraVENous, at 937.5 mL/hr, Administer over 16 Minutes, PRN, Other, Blood glucose LESS THAN 40 mg/dL and patient NOT ALERT or NPO, Starting on Wed09/08/22 at 1254, Repeat blood glucose in 15 minutes. If blood glucose remains LESS THAN 70 mg/dL, repeat treatment and recheck blood glucose in 15 minutes x 2. If using glycemic management system, dose as instructed per system. If blood glucose remains LESS THAN 70 mg/dL after 2 intravenous boluses start dextrose 10% at 100 mL/hour and notify provider., Post-op glucagon (rDNA) injection 1 mg 1 mg, SubCUTAneous, PRN, Starting on Wed09/08/22 at 1254, Until Discontinued, Low blood sugar, Blood glucose LESS THAN 70 mg/dL and patient NOT ALERT or NPO and does not have IV access., After administration, attempt intravenous access and start dextrose 10% at 100 mL/hr. Repeat blood glucose in 15 minutes x 2 and notify provider., Post-op glucose chewable tablet 16 g 16 g (4 tablet), Oral, PRN, Starting on Wed09/08/22 at 1254, Until Discontinued, Low blood sugar, If blood glucose is LESS THAN 70 mg/dL and patient is alert and tolerating oral. Give 4 tablets (16g) Repeat blood glucose in 15 minutes. If blood glucose is LESS THAN 70 mg/dL, repeat treatment and recheck blood glucose in 15 minutes x 2. If blood glucose remains LESS THAN 70 mg/dL, notify provider., Post-op HYDROmorphone (DILAUDID) injection 0.5 mg (COMPLETED) 0.5 mg, IntraVENous, EVERY 5 MIN PRN, 4 doses, Starting on Wed09/08/22 at 1118, Until Discontinued, Pain Severe (7-10), Phase I - Initial therapy for severe pain., PACU only 1121 (Given - Provider: Brionna Garland RN)1127 (Given - Provider: Brionna Garland RN)1136 (Given - Provider: Brionna Garland RN)1146 (Given - Provider: Brionna Garland RN) melatonin tablet 3 mg 3 mg, Oral, NIGHTLY PRN, Starting on Wed09/08/22 at 2100, Until Discontinued, Sleep, Post-op ondansetron (ZOFRAN) injection 4 mg(Linked Group 2) 4 mg, IntraVENous, EVERY 6 HOURS PRN, Starting on Wed09/08/22 at 1254, Until Discontinued, Nausea, Vomiting, Administer if oral route cannot be used., Post-op ondansetron (ZOFRAN-ODT) disintegrating tablet 4 mg(Linked Group 2) 4 mg, Oral, EVERY 8 HOURS PRN, Starting on Wed09/08/22 at 1254, Until Discontinued, Nausea, Vomiting, Post-op oxyCODONE (ROXICODONE) immediate release tablet 10 mg(Linked Group 3) 10 mg, Oral, EVERY 4 HOURS PRN, Starting on Wed09/08/22 at 1254, Until Discontinued, Pain Severe (7-10), Post-op 161 (See Alternative - Provider: Brittany Cooney RN)2033 (See Alternative - Provider: Margarita Yeh RN) 0943 (See Alternative - Provider: Sanna Stoner RN) oxyCODONE (ROXICODONE) immediate release tablet 5 mg(Linked Group 3) 5 mg, Oral, EVERY 4 HOURS PRN, Starting on Wed09/08/22 at 1254, Until Discontinued, Pain Moderate (4-6), Post-op 1611 (Given - Provider: Brittany Cooney RN)2033 (Given - Provider: Margarita Yeh RN) 0943 (Given - Provider: Sanna Stoner RN) prochlorperazine (COMPAZINE) injection 10 mg 10 mg, IntraVENous, EVERY 6 HOURS PRN, Starting on Wed09/08/22 at 1254, Until Discontinued, Nausea, If administering IV push, administer at a maximum rate of 5 mg/minute., Post-op simethicone (MYLICON) chewable tablet 80 mg 80 mg, Oral, EVERY 6 HOURS PRN, Starting on Wed09/08/22 at 1254, Until Discontinued, Cramping, Post-op 1927 (Given - Provider: Brittany Cooney RN) 0936 (Given - Provider: Sanna Stoner RN) sod chloride IRR soln 0.9 % irrigation (CANCELED) CONTINUOUS PRN, Starting on Wed09/08/22 at 0906, Intra-op 0906 (New Bag - Provider: Clemencia Gambino MD)1013 (New Bag - Provider: Clemencia Gambino MD - Comment: FOR CYSTO IRRIGATION) sodium chloride 0.9 % 20 mL with bupivacaine liposome (EXPAREL) 20 mL (CANCELED) PRN, Starting on Wed09/08/22 at 0829, Intra-op 0829 (Given - Provider: Clemencia Gambino MD) sodium chloride flush 0.9 % injection 5-40 mL 5-40 mL, IntraVENous, PRN, Starting on Wed09/08/22 at 1254, Until Discontinued, Line Care, After every IV line use, For Line Patency: Peripheral IV = 5 mL; Midline or Central Line = 10 mL/lumen. If following IV push medication, administer flush at same rate as the IV push. Flush volume is determined by type of infusion therapy being given. For non-viscous solutions use: Peripheral IV = 5 mL Midline or Central Line = 10 mL/lumen For viscous solutions (i.e. blood components, parenteral nutrition, contrast media, or after obtaining blood sample) use: Peripheral IV = 10 mL Midline or Central Line = 20 mL/lumen, Post-op Linked Groups Order Group 1: dextrose bolus 10% 125 mLJump to med 125 mL, IntraVENous, at 937.5 mL/hr, Administer over 8 Minutes, PRN, Other, Blood glucose 40 - 69 mg/dL and patient NOT ALERT or NPO, Starting on Wed09/08/22 at 1254
Repeat blood glucose in 15 minutes. If blood glucose remains LESS THAN 70 mg/dL, repeat treatment and recheck blood glucose in 15 minutes x 2. If using glycemic management system, dose as instructed per system. If blood glucose remains LESS THAN 70 mg/dL after 2 intravenous boluses start dextrose 10% at 100 mL/hour and notify provider.
Post-op Or dextrose bolus 10% 250 mLJump to med 250 mL, IntraVENous, at 937.5 mL/hr, Administer over 16 Minutes, PRN, Other, Blood glucose LESS THAN 40 mg/dL and patient NOT ALERT or NPO, Starting on Wed09/08/22 at 1254
Repeat blood glucose in 15 minutes. If blood glucose remains LESS THAN 70 mg/dL, repeat treatment and recheck blood glucose in 15 minutes x 2. If using glycemic management system, dose as instructed per system. If blood glucose remains LESS THAN 70 mg/dL after 2 intravenous boluses start dextrose 10% at 100 mL/hour and notify provider.
Post-op Group 2: ondansetron (ZOFRAN-ODT) disintegrating tablet 4 mgJump to med 4 mg, Oral, EVERY 8 HOURS PRN, Starting on Wed09/08/22 at 1254, Until Discontinued, Nausea, Vomiting, Post-op Or ondansetron (ZOFRAN) injection 4 mgJump to med 4 mg, IntraVENous, EVERY 6 HOURS PRN, Starting on Wed09/08/22 at 1254, Until Discontinued, Nausea, Vomiting
Administer if oral route cannot be used.
Post-op Group 3: oxyCODONE (ROXICODONE) immediate release tablet 5 mgJump to med 5 mg, Oral, EVERY 4 HOURS PRN, Starting on Wed09/08/22 at 1254, Until Discontinued, Pain Moderate (4-6), Post-op Or oxyCODONE (ROXICODONE) immediate release tablet 10 mgJump to med 10 mg, Oral, EVERY 4 HOURS PRN, Starting on Wed09/08/22 at 1254, Until Discontinued, Pain Severe (7-10), Post-op PRN Medication Order 09/21/2022 09/22/2022 09/23/2022 iopamidol (ISOVUE-370) 76 % injection 75 mL (COMPLETED) 75 mL, IntraVENous, IMG ONCE PRN, 1 dose, Starting on Wed09/23/22 at 1136, Until Wed09/23/22 at 1144, Other 1144 (Given - Provid er: Marisa Kumar) Scheduled Medication Order 02/09/2023 02/10/2023 02/11/2023 acetaminophen (OFIRMEV) IVPB 1,000 mg (COMPLETED) 1,000 mg, Intravenous, at 400 mL/hr, Administer over 15 Minutes, ONCE, 1 dose, On Mirian 02/11/23 at 5798 2640 ($$New Bag$$ - Provider: Margaret Ortiz HEAVENLY)1539 (Stopped - Provider: Margaret Ortiz RN) Ondansetron 4mg/2ml (ZOFRAN) injection 4 mg (COMPLETED) 4 mg, Intravenous, ONCE, 1 dose, On Mirian 02/11/23 at 1100, Pre-op/Pre-Proc 1030 (Given - Provid er: Liss Iyer RN) Sodium chloride 0.9% IV solution 1,000 mL (COMPLETED) 1,000 mL, Intravenous, ONCE, 1 dose, On Mirian 02/11/23 at 0845 0842 ($$New Bag$$ - Provider: Nellie Mosqueda LPN)1555 (Stopped - Provider: Margaret Ortiz RN) PRN Medication Order 02/09/2023 02/10/2023 02/11/2023 Bupivacaine-Epinephrine (MARCAINE;SENSORCAINE-MPF) 0.5% -[id number] injection (CANCELED) NEEDED, Starting on Mirian 02/11/23 at 1332, Until Mirian 02/11/23 at 1401, Intra-op/Intra-Proc 1332 (Given - Provid er: Elliot Zheng MD) ceFAZolin (ANCEF) 2 g in dextrose 100 mL premix IVPB (COMPLETED) 2 g, Intravenous, Administer over 30 Minutes, CLERICAL OFFICE TO PROCEDURE, 1 dose, Starting on Mirian 02/11/23 at 0801, Until Discontinued, Other, Pre-operative antibiotic, Pre-op/Pre-Proc 1227 (Given - Provid er: Omero Carpenter APRN-CARPET TILE LAYER - Comment: PSR) hydroCODone-acetaminophen (NORCO) 5-325 MG per tablet 1-2 tablet 1-2 tablet, Oral, EVERY 4 HOURS NEEDED, Starting on Mirian 02/11/23 at 1423, Until Mirian 02/11/23 at 1756, Other, See Admin Instructions, 1 tablet for pain scale 4 or 5 out of 10 2 tablets for pain scale 6 to 10 out 10, Post-op/Post-Proc mineral oil topical liquid (CANCELED) NEEDED, Starting on Mirian 02/11/23 at 1334, Until Mirian 02/11/23 at 1401, Intra-op/Intra-Proc 1334 (Given - Provid er: Elliot Zheng MD - Comment: used during the case on items on the sterile field) Oxidized Cellulose (SURGICEL) topical pad (CANCELED) NEEDED, Starting on Wed02/11/23 at 1332, Until Wed02/11/23 at 1401, Intra-op/Intra-Proc 1332 (Given - Provid er: Elliot Zheng MD - Comment: placed on sterile field for use during the case) Vancomycin (VANCOCIN) injection (CANCELED) NEEDED, Starting on Wed02/11/23 at 1333, Until Mirian 02/11/23 at 1401, Intra-op/Intra-Proc 1333 (Given - Provid er: Elliot Zheng MD) No Frequency Medication Order 02/09/2023 02/10/2023 02/11/2023 diphenhydrAMINE (BENADRYL) injection 1 dose, Starting on Wed02/11/23 at 1412, Until Wed02/12/23 at 1415, Omero Carpenter: cabinet override 1415 (Canceled Entry - Provider: System Discharge - Comment: Automatically canceled at discontinue of medication order) Scopolamine (TRANSDERM-SCOP) patch 1 dose, Starting on Wed02/11/23 at 1031, Until Wed02/11/23 at 1756, Inge Osborne: cabinet override 1045 (Canceled Entry - Provider: System Discharge - Comment: Automatically canceled at discontinue of medication order) Scheduled Medication Order 06/30/2023 07/01/2023 07/02/2023 Ondansetron 4mg/2ml (ZOFRAN) injection 4 mg (COMPLETED) 4 mg, Intravenous, ONCE, 1 dose, On Wed07/02/23 at 1015 1012 (Given - Provid er: Liss Iyer RN) Continuous Medication Order 06/30/2023 07/01/2023 07/02/2023 Sodium chloride 0.9% IV solution Intravenous, at 125 mL/hr, CONTINUOUS, Starting on Wed07/02/23 at 0845, Until Wed07/02/23 at 1215 0914 ($$New Bag$$ - Provider: Terry Vicente APRN-CARPET TILE LAYER)1001 (Stopped - Provider: Liss Iyer RN) PRN Medication Order 06/30/2023 07/01/2023 07/02/2023 BUPivacaine (PF) (MARCAINE) 0.5 % injection (CANCELED) NEEDED, Starting on Wed07/02/23 at 0923, Until Wed07/02/23 at 0938, Intra-op/Intra-Proc 09 (Given - Provid er: Elliot Zheng MD - Comment: placed on sterile field for use during the case) methylPREDNISolone acetate (DEPO-MEDROL) injection (CANCELED) NEEDED, Starting on Wed07/02/23 at 0924, Until Wed07/02/23 at 0938, Intra-op/Intra-Proc 09 (Given - Provid er: Elliot Zheng MD - Comment: placed on sterile field for use during the case) Scheduled Medication Order 12/22/2023 12/23/2023 12/24/2023 ketorolac (TORADOL) injection 30 mg (COMPLETED) 30 mg, IntraMUSCular, ONCE, 1 dose, On Wed12/24/23 at 1115, Do not administer for more than 5 days. 1129 (Given - Provid er: Abdias Nascimento RN) oxyCODONE-acetaminophen (PERCOCET) 5-325 MG per tablet 1 tablet (COMPLETED) 1 tablet, Oral, ONCE, 1 dose, On Wed12/24/23 at 1130, Maximum dose of acetaminophen is 4000 mg from all sources in 24 hours. 1129 (Given - Provid er: Abdias Nascimento RN) Care Teams (unrecognized sec tion and content) Learning Disabilities Resource Teacher Relationship Specialty Start Date End Date Zayra Sloan DO [address] [place] [address] PCP - General Family Medicine 03/31/19 Learning Disabilities Resource Teacher Relationship Specialty Start Date End Date Zayra Sloan DO [address] [place] [address] PCP - General Family Medicine 03/31/19 Learning Disabilities Resource Teacher Relationship Specialty Start Date End Date Zayra Sloan DO [address] [place] [address] PCP - General Family Medicine 03/31/19 Learning Disabilities Resource Teacher Relationship Specialty Start Date End Date Evelyn Sloanveronica Yin, DO [address] [place] [address] PCP - General Family Medicine 03/31/19 Learning Disabilities Resource Teacher Relationship Specialty Start Date End Date BlusanpaEvelyn mcdonaldveronica Yin, DO [address] [place] [address] PCP - General Family Medicine 03/31/19 Learning Disabilities Resource Teacher Relationship Specialty Start Date End Date Evelyn Sloanveronica Yin, DO [address] [place] [address] PCP - General Family Medicine 03/31/19 Team Status: Inactive Member Role Status Dates NON STAFF Primary Care Provider Active Ministerio Martínez MD Attending Provider Active Team Status: Active Member Role Status Dates NON STAFF Primary Care Provider Active Learning Disabilities Resource Teacher Relationship Specialty Start Date End Date Evelyn Sloanveronica Yin, DO [address] [place] [address] PCP - General Family Medicine 03/31/19 Learning Disabilities Resource Teacher Relationship Specialty Start Date End Date Evelyn Sloanveronica Yin, DO [address] [place] [address] PCP - General Family Medicine 03/31/19 Learning Disabilities Resource Teacher Relationship Specialty Start Date End Date BluZayra mitchell, DO [address] [place] [address] PCP - General Family Medicine 03/31/19 Learning Disabilities Resource Teacher Relationship Specialty Start Date End Date BluZayra mitchell, DO [address] [place] [address] PCP - General Family Medicine 03/31/19 Learning Disabilities Resource Teacher Relationship Specialty Start Date End Date Zayra Sloan, DO [address] [place] [address] PCP - General Family Medicine 03/31/19 Learning Disabilities Resource Teacher Relationship Specialty Start Date End Date Zayra Sloan, DO [address] [place] [address] [phone] PCP - General Family Medicine 03/31/19 Learning Disabilities Resource Teacher Relationship Specialty Start Date End Date [facility]. Other [address] [place] [place] [address] PCP - General Other 06/16/22 Learning Disabilities Resource Teacher Relationship Specialty Start Date End Date Zayra Sloan, DO [address] [place] [address] PCP - General Family Medicine 03/31/19 Learning Disabilities Resource Teacher Relationship Specialty Start Date End Date [facility]. Other [address] [place] [address] PCP - General Other 06/16/22 Learning Disabilities Resource Teacher Relationship Specialty Start Date End Date Zayra Sloan, DO [address] [place] [address] PCP - General Family Medicine 03/31/19 Learning Disabilities Resource Teacher Relationship Specialty Start Date End Date Zayra Sloan, DO [address] [place] [address] PCP - General Family Medicine 03/31/19 Learning Disabilities Resource Teacher Relationship Specialty Start Date End Date [facility]. Other [address] [place] [address] PCP - General Other 06/16/22 Learning Disabilities Resource Teacher Relationship Specialty Start Date End Date [facility]. Other [address] [place] [place] [address] PCP - General Other 06/16/22 Learning Disabilities Resource Teacher Relationship Specialty Start Date End Date Zayra Sloan DO [address] [place] [place] [address] PCP - General Family Medicine 03/31/19 Learning Disabilities Resource Teacher Relationship Specialty Start Date End Date [facility] Other [address] [place] [address] PCP - General Other 06/16/22 Learning Disabilities Resource Teacher Relationship Specialty Start Date End Date [facility] Other [address] [place] [address] PCP - General Other 06/16/22 Learning Disabilities Resource Teacher Relationship Specialty Start Date End Date [facility] Other [address] [place] [address] PCP - General Other 06/16/22 Learning Disabilities Resource Teacher Relationship Specialty Start Date End Date [facility] Other [address] [place] [address] PCP - General Other 06/16/22 Learning Disabilities Resource Teacher Relationship Specialty Start Date End Date [facility] Other [address] [place] [address] PCP - General Other 06/16/22 Learning Disabilities Resource Teacher Relationship Specialty Start Date End Date [facility] Other [address] [place] [address] PCP - General Other 06/16/22 Learning Disabilities Resource Teacher Relationship Specialty Start Date End Date [facility] Other [address] [place] [address] PCP - General Other 06/16/22 Learning Disabilities Resource Teacher Relationship Specialty Start Date End Date Zayra Sloan DO [address] [place] [address] PCP - General Family Medicine 03/31/19 Learning Disabilities Resource Teacher Relationship Specialty Start Date End Date Zayra Sloan DO [address] [place] [address] PCP - General Family Medicine 03/31/19 Goals (unrecognized section and content) Goals may be documented in a n alternate section FOR RECORDS PERTAINING TO PATIENTS WHO ARE OR HAVE BEEN ENROLLED IN A CHEMICAL DEPENDENCY/SUBSTANCEABUSE PROGRAM, SOME INFORMATION MAY BE OMITTED. This clinical summary was aggregated from multiple sources. Caution should be exercised in using it in the provision of clinical care. This summary normalizes information from multiple sources, and as a consequence, information in this document may materially change the coding, format and clinical context of patient data. In addition, data may be omitted in some cases. CLINICAL DECISIONS SHOULD BE BASED ON THE PRIMARY CLINICAL RECORDS. [facility] [employer] [facility]. provides no warranty or guarantee of the accuracy or completeness of information in this document.
== END 2024-03-31 10:03 | disposition home or self-care (01) ==
LOC: EC 10:02
PROVIDERS: Visit Provider Orthopaedic Surgery Orthopaedic Surgery of the Spine
DX: M54.50 Low back pain, unspecified (principal)
CPT/HCPCS: 72110

== ENCOUNTER 2024-04-18 08:31 | Outpatient (OUT) | payer BC, SELFPAY ==
--- NOTE | 2024-04-18 08:35 | MR_ITS ---
The [address] [address] Patient Name: CHARLI HARRIS MRN: [id number] date: 1975 Sex: F Assigned Patient Location: MRI Current Patient Location: Accession/Order Number: [id number] Exam Date: 04/18/2024 09:00 Report Date: 04/19/2024 07:36 At the request of: ANDREY SEVERINO Procedure: MR lumbar spine wo con EXAMINATION: MR lumbar spine wo con HISTORY: Aftercare Following Surgery Of To Musculoskeletal System COMPARISON: No relevant comparison available. TECHNIQUE: A variety of imaging planes and parameters were utilized for visualization of suspected pathology. FINDINGS: For the purposes of numbering, sagittal T2 image # 8 extends from the T11 vertebral body superiorly to the S3 level inferiorly. PARASPINAL AREA: Normal with no visible mass. BONES: Normal alignment with no acute fracture or spondylolisthesis. Posterior decompression and bilateral transpedicular fusion L5-S1 with resultant metallic susceptibility artifact. Areas of signal abnormality within the L1 and L4 vertebral bodies, hemangiomas are favored CORD/CAUDA EQUINA: Normal caliber, contour, and signal intensity. DISC LEVELS: 12-L1: No significant disc/facet abnormality, spinal stenosis, or foraminal stenosis. L1-L2: No significant disc/facet abnormality, spinal stenosis, or foraminal stenosis. L2-L3: No significant disc/facet abnormality, spinal stenosis, or foraminal stenosis. L3-L4: No significant disc/facet abnormality, spinal stenosis, or foraminal stenosis. L4-L5: Early degenerative disc disease is present without focal protrusion or neural impingement. L5-S1: Posterior decompression. Disc space narrowing and disc desiccation. Mild diffuse disc bulge with facet osteoarthropathy. No central canal stenosis. Mild bilateral foraminal stenosis MR/MR lumbar spine wo con IMPRESSION: L5-S1 fusion with mild bilateral foraminal stenosis Electronically authenticated by: GLENN VALLES Date: 04/19/2024 07:36
== END 2024-04-18 08:32 | disposition home or self-care (01) ==
LOC: MRI 08:32
PROVIDERS: Visit Provider Orthopaedic Surgery Orthopaedic Surgery of the Spine
DX: Z47.89 Encounter for other orthopedic aftercare (principal); M43.27 Fusion of spine, lumbosacral region
CPT/HCPCS: 72148

== ENCOUNTER 2024-07-26 10:19 | Outpatient (OUT) | payer BC, SELFPAY ==
--- NOTE | 2024-07-26 10:49 | P.CN_ITS ---
Consult Note: HPI Data of Consult Patient: known to practice within the last 3 years Requesting Physician: Luz Singh NP Primary Care Provider: Non-Staff Physician, MD Consult Narrative Reason for consult: f/u knee pain Narrative: Sarah Becerra a 49 year old presents for evaluation of chronic knee pain secondary to OA. Pain today 8/10 increasing to 10/10 with standing, walking, weight bearing, and activity. pt has failed greater than 6 weeks of PT/HEP, heat, ice, tylenol, NSAIDs. utilizes gabapentin and percocet PRN through PCP. Dr Polo is recommending knee replacement however pt needs to lose weight prior to surgical intervention. Pt is interested in genicular ablations for chronic severe knee pain secondary to OA cc:: CC: Luz Singh NP Review of Systems ROS Status of ROS 10 or more systems reviewed and unremark able except as noted in history and below Musculoskeletal Reports: joint pain PFSH PFSH Medical History Osteoarthritis ?M19.90 - Unspecified osteoarthritis, unspecified site (ICD-10) Anxiety ?F41.9 - Anxiety disorder, unspecified (ICD-10) Diabetes ?E11.9 - Type 2 diabetes mellitus without complications (ICD-10) HTN (hypertension) ?I10 - Essential (primary) hypertension (ICD-10) Surgical History History of Achilles tendon repair ?Z98.890 - Other specified postprocedural states (ICD-10) History of hysterectomy ?Z90.710 - Acquired absence of both cervix and uterus (ICD-10) History of lumbar fusion ?Z98.1 - Arthrodesis status (ICD-10) History of hernia repair ?Z98.890 - Other specified postprocedural states (ICD-10) ?Z87.19 - Personal history of other diseases of the digestive system (ICD-10) Meds Home Medications and Allergies Home Medications ?Medication ?Instructions ?Recorded ?Confirmed ?Type dulaglutide 1.5 mg/0.5 mL 1.5 mg subcut QWEEK 01/24/24 02/21/24 History [facility] gabapentin 300 mg capsule 300 mg PO DAILY 01/24/24 02/21/24 History melatonin 5 mg tablet 5 mg PO DAILY 01/24/24 02/21/24 History metformin 1,000 mg tablet 1,000 mg PO BID 01/24/24 02/21/24 History pantoprazole 40 mg tablet,delayed 40 mg PO BID 01/24/24 02/21/24 History release (Protonix) paroxetine HCl 30 mg tablet (Paxil) 30 mg PO DAILY 01/24/24 02/21/24 History verapamil 240 mg 24 hr 240 mg PO DAILY 01/24/24 02/21/24 History capsule,extended release Allergies Allergy/AdvReac Type Severity Reaction Status Date / Time acetaminophen (From [place]) Allergy Unknown Unknown Verified 02/21/24 08:37 codeine Allergy Unknown Unknown Verified 02/21/24 08:37 hydrocodone (From [place]) Allergy Unknown Unknown Verified 02/21/24 08:37 Sulfa (Sulfonamide Allergy Unknown Unknown Verified 02/21/24 08:37 Antibiotics) Exam Extremity Right lower extremity: knee joint Left lower extremity: knee joint Other: bilateral knees with mild edema, moderate crepitus, pain with medial and lateral stress testing, enlarged diameter. negative instability, no redness or warmth noted Assessment and Plan Assessment and Plan (1) Bilateral primary osteoarthritis of knee: Plan unfortunately current insurance will not cover genicular nerve blocks/radiofrequency ablations, as an alternative we will request bilateral REILLY injections continue f/u with Dr Polo as planned, is interested in having knee replacement surgery but is working on weight loss. surgical weight to be 290lbs, currently at 329lbs. pt continues to make changes to diet, exercise, and is on topamax for weight loss continue HEP as tolerated f/u after injection
== END 2024-07-26 10:20 | disposition home or self-care (01) ==
LOC: PM 10:19
PROVIDERS: Visit Provider Nurse Practitioner
DX: M17.0 Bilateral primary osteoarthritis of knee (principal)
CPT/HCPCS: G0463

== ENCOUNTER 2024-08-07 11:36 | Outpatient (OUT) | payer BC, SELFPAY ==
--- NOTE | 2024-08-07 13:03 | PM.CN ---
Consult Note: HPI Data of Consult Patient: known to practice within the last 3 years Consult date: 08/07/24 Requesting Physician: Bing Rodriguez MD Primary Care Provider: Non-Staff Physician, Consult Narrative Reason for consult: bilateral knee pain Narrative: 49yof who presents for in office injection. continues to have bilateral knee pain. cc:: CC: Bing Rodriguez MD Review of Systems ROS Status of ROS 10 or more systems reviewed and unremarkable except as noted in history and below PFSH PFSH Medical History Osteoarthritis ?M19.90 - Unspecified osteoarthritis, unspecified site (ICD-10) Anxiety ?F41.9 - Anxiety disorder, unspecified (ICD-10) Diabetes ?E11.9 - Type 2 diabetes mellitus without complications (ICD-10) HTN (hypertension) ?I10 - Essential (primary) hypertension (ICD-10) Surgical History History of Achilles tendon repair ?Z98.890 - Other specified postprocedural states (ICD-10) History of hysterectomy ?Z90.710 - Acquired absence of both cervix and uterus (ICD-10) History of lumbar fusion ?Z98.1 - Arthrodesis status (ICD-10) History of hernia repair ?Z98.890 - Other specified postprocedural states (ICD-10) ?Z87.19 - Personal history of other diseases of the digestive system (ICD-10) Meds Home Medications and Allergies Home Medications ?Medication ?Instructions ?Recorded ?Confirmed ?Type dulaglutide 1.5 mg/0.5 mL 1.5 mg subcut QWEEK 01/24/24 02/21/24 History subcutaneous pen injector ([facility]) gabapentin 300 mg capsule 300 mg PO DAILY 01/24/24 02/21/24 History melatonin 5 mg tablet 5 mg PO DAILY 01/24/24 02/21/24 History metformin 1,000 mg tablet 1,000 mg PO BID 01/24/24 02/21/24 History pantoprazole 40 mg tablet,delayed 40 mg PO BID 01/24/24 02/21/24 History release (Protonix) paroxetine HCl 30 mg tablet (Paxil) 30 mg PO DAILY 01/24/24 02/21/24 History verapamil 240 mg 24 hr 240 mg PO DAILY 01/24/24 02/21/24 History capsule,extended release Allergies Allergy/AdvReac Type Severity Reaction Status Date / Time acetaminophen (From [place]) Allergy Unknown Unknown Verified 02/21/24 08:37 codeine Allergy Unknown Unknown Verified 02/21/24 08:37 hydrocodone (From [place]) Allergy Unknown Unknown Verified 02/21/24 08:37 Sulfa (Sulfonamide Allergy Unknown Unknown Verified 02/21/24 08:37 Antibiotics) Exam Narrative Exam Narrative: Psych-alert and oriented x 3.? Attentive and appropriate, constitutionally normal, displays normal mood and affect per situation.? There are no obvious deficits in memory, reasoning, or intellect. Extremities-lower extremities are warm with minimal edema and palpable pulses. Knee-examination of the bilateral knee reveals tenderness to palpation over the superior, inferior, lateral, and medial aspect of the knee.? Some swelling is noted without erythema. Pain is elicited with flexion and extension of the knee both actively and passively.? Some grinding is noted with these motions.? There is no notable ligamental laxity or instability.? Coordination remains intact.? Gait remains antalgic. Assessment and Plan Assessment and Plan (1) Bilateral primary osteoarthritis of knee: Plan 49yof who presents for in office injection. continues to have bilateral knee pain, would like to proceed with bilateral knee injection. Procedure: Bilateral knee injection Medications: Durolane (hyaluronic acid) x2 I explained the details of the procedure to the patient including the risks, benefits and alternatives. We had an informed discussion and the patient verbalized understanding and signed the consent form. All questions were answered appropriately.? A time out was performed.? After obtaining a comfortable seated position, the left knee was prepped with alcohol x3. A syringe containing the above medication was attached to a 25 gauge, 1.5 inch needle under strict aseptic technique. The lateral tibial plateau was palpated.? The needle was then advanced through the subcutaneous tissue in a medial and superior direction towards the joint space.? The contents of the syringe were gently injected without any resistance. The needle was removed and pressure was applied to the injection site to decrease the incidence of ecchymosis and hematoma formation.? A sterile bandage was applied. The same procedure was then completed on the opposite side.
== END 2024-08-07 11:37 | disposition home or self-care (01) ==
LOC: PM 11:36
PROVIDERS: Visit Provider Anesthesiology
DX: M17.0 Bilateral primary osteoarthritis of knee (principal)
CPT/HCPCS: 20610; J7318

== ENCOUNTER 2024-08-30 08:39 | Outpatient (OUT) | payer BC, SELFPAY ==
--- NOTE | 2024-08-30 08:59 | P.CN_ITS ---
Consult Note: HPI Data of Consult Patient: known to practice within the last 3 years Requesting Physician: Luz Singh NP Primary Care Provider: Non-Staff Physician, Consult Narrative Reason for consult: back pain Narrative: Sarah Becerra a 49 year old female presents for evaluation of chronic back pain. longstanding hx of low back pain unresponsive to > 6 weeks of PT, HEP, heat, ice, tylenol, NSAIDs. previously underwent lumbar fusion with Dr Baldwin September 2023 without improvement per pt. Pain today 8/10 aching throbbing pressure inc reasing with standing, walking, sitting, stairs, activity, and sleep. pt reports surgery made no improvement in her pain or quality of life. has failed to benefit from tylenol, motrin, ibuprofen, celebrex, and gabapentin. previously found mild relief from SIJ injections preop. has not underwent lumbar MBBs or RFAs. prior lumbar MRI and xray consistent with degenerative changes. cc:: CC: Luz Singh NP Review of Systems ROS Status of ROS 10 or more systems reviewed and unremark able except as noted in history and below Musculoskeletal Reports: back pain; Denies: extremity pain PFSH PFSH Medical History Osteoarthritis ?M19.90 - Unspecified osteoarthritis, unspecified site (ICD-10) Anxiety ?F41.9 - Anxiety disorder, unspecified (ICD-10) Diabetes ?E11.9 - Type 2 diabetes mellitus without complications (ICD-10) HTN (hypertension) ?I10 - Essential (primary) hypertension (ICD-10) Surgical History History of Achilles tendon repair ?Z98.890 - Other specified postprocedural states (ICD-10) History of hysterectomy ?Z90.710 - Acquired absence of both cervix and uterus (ICD-10) History of lumbar fusion ?Z98.1 - Arthrodesis status (ICD-10) History of hernia repair ?Z98.890 - Other specified postprocedural states (ICD-10) ?Z87.19 - Personal history of other diseases of the digestive system (ICD-10) Meds Home Medications and Allergies Home Medications ?Medication ?Instructions ?Recorded ?Confirmed ?Type dulaglutide 1.5 mg/0.5 mL 1.5 mg subcut QWEEK 01/24/24 02/21/24 History subcutaneous pen injector ([facility]) gabapentin 300 mg capsule 300 mg PO DAILY 01/24/24 02/21/24 History melatonin 5 mg tablet 5 mg PO DAILY 01/24/24 02/21/24 History metformin 1,000 mg tablet 1,000 mg PO BID 01/24/24 02/21/24 History pantoprazole 40 mg tablet,delayed 40 mg PO BID 01/24/24 02/21/24 History release (Protonix) paroxetine HCl 30 mg tablet (Paxil) 30 mg PO DAILY 01/24/24 02/21/24 History verapamil 240 mg 24 hr 240 mg PO DAILY 01/24/24 02/21/24 History capsule,extended release Allergies Allergy/AdvReac Type Severity Reaction Status Date / Time acetaminophen (From [place]) Allergy Unknown Unknown Verified 02/21/24 08:37 codeine Allergy Unknown Unknown Verified 02/21/24 08:37 hydrocodone (From [place]) Allergy Unknown Unknown Verified 02/21/24 08:37 Sulfa (Sulfonamide Allergy Unknown Unknown Verified 02/21/24 08:37 Antibiotics) Exam Constitutional Documenting provider has reviewed patient's vital signs: yes Common normals: no apparent distress, oriented x3, healthy appearing, alert and well nourished General appearance: cooperative HENMT Common normals: normocephalic, hearing grossly normal bilaterally and moist oral mucous membranes Head and scalp: normocephalic Eye Common normals: PERRL Pupil: PERRL Neck & C-Spine Common normals: full ROM General: normal visual inspection Chest Common normals: inspection of chest normal Respiratory Common normals: normal respiratory effort, no retractions and no use of accessory muscles Back & Pelvis Lumbar spine/lower back: ROM limited, pain with ROM, lumbar spinal tenderness and straight leg raise negative bilaterally; no paraspinal muscle tenderness and no paraspinal muscle spasm Other: positive facet loading L2-4 strength 5/5 in BLE sensation intact BLE Neuro Common normals: oriented x3, CN's II-XII intact bilaterally, moves all extremities, no focal motor deficits, no sensory deficits noted and deep tendon reflexes 2+ bilaterally Sensorium/orientation: alert Motor exam: strength 5/5 throughout and no movement abnormalities noted Psych Common normals: mental status grossly normal, thought process normal, cooperative, affect normal, speech normal and activity/motor behavior normal Speech: normal speech Thought process: normal thought process Results Additional Findings Additional findings: If on a controlled substance or opioids, I have checked an OARRS report on this patient and there are no aberrancies noted in the prescribing history.??If on a controlled substance or opioid a drug screen was completed and reviewed within the last year, and if there has not been a drug screen completed we ordered one today to monitor higher risk, state monitored pain medication use. As part of providing excellent, safe, comprehensive care, the following was completed at our patient's visit: 1. A medication reconciliation and review to ensure accurate knowledge of current/active medications, including asking our patients to inform us about any [id number] medications or herbal remedies/nutritional supplements/alternative remedies. 2. A review to specifically ensure our patients have had annual screening for screening for depression, screening for tobacco use, and screening for unhealthy alcohol use. For concerning screenings had a discussion with the patient, provided patient education, and recommended follow-up with primary care provider when appropriate. If patient noted with a risk of falling, they received education on strength, gait, and balance training to prevent future risk of falling. Portions of this note may have been carried over from the previous visit and updated as appropriate. Please note this office utilizes paper charting in addition to the electronic medical record. A list of current medications, vitals, and PMH is available there as the clinical staff outside of myself do not have access to [facility] charting during the clinic day operations. As part of providing quality comprehensive care the current medications, vitals, and PMH were reviewed in the paper chart. Assessment and Plan Assessment and Plan (1) Failed back syndrome: Assessment and Plan: The patient has had over 3 months of moderate to severe low back pain with functional impairment and inadequate response to conservative care including NSAIDS (unless there are contraindication such as concurrent blood thinners), multiple oral or topical pain medications, and home exercise program/physical therapy.? Patient has completed >6 weeks of guided home exercise program and/or formal physical therapy program without relief of their symptoms.? The Oswestry Disability Index was completed, and the patient scored a 49%.? The patient noted the following:??moderate to severe pain impacting ALDs, sleep, standing, walking, social life, and travel We discussed the risks and benefits of the procedure with the patient ?The procedure will be completed with fluoroscopic guidance.? (2) Lumbar spondylosis: Plan 49 year old female with chronic low back pain post lumbar fusion who continues to have severe low back pain and significant impairment of functional ability and quality of life despite completing 6 weeks of provider guided HEP, PT, heat, ice, tylenol, and NSAIDs. Per pt has been cleared by NS. 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 pt is not interested in MBBs/RFAs. continue HEP as tolerated. proceed with bilateral [employer] spinal cord stimulator trial under fluoroscopy with MAC sedation once psychiatric evaluation completed for failed back syndrome and lumbar spondylosis. f/u in office for lead removal.
== END 2024-08-30 08:40 | disposition home or self-care (01) ==
LOC: PM 08:39
PROVIDERS: Visit Provider Nurse Practitioner
DX: M96.1 Postlaminectomy syndrome, not elsewhere classified (principal); M47.816 Spondylosis without myelopathy or radiculopathy, lumbar region
CPT/HCPCS: G0463

== ENCOUNTER 2024-09-21 11:16 | Outpatient (OUT) | payer BC, SELFPAY ==
[2024-09-21 11:36] LABS: Platelet Count 278 10^3/uL (150-450)
== END 2024-09-21 11:17 | disposition home or self-care (01) ==
LOC: LAB 11:19
PROVIDERS: Visit Provider Nurse Practitioner
DX: Z01.812 Encounter for preprocedural laboratory examination (principal)
CPT/HCPCS: 36415; 85049

== ENCOUNTER 2024-10-04 12:27 | Outpatient (OUT) | payer BC, SELFPAY ==
--- NOTE | 2024-10-04 12:57 | PM.CN ---
Consult Note: HPI Data of Consult Patient: known to practice within the last 3 years Requesting Physician: Luz Singh NP Primary Care Provider: Non-Staff Physician, Consult Narrative Reason for consult: scs f/u Narrative: Sarah Becerra a pleasant 49 year old female with chronic severe low back pain post lumbar fusion. Pt recently underwent scs trial with implant 09/29/24. Pt notes >80% improvement in pain and functional ability with spinal cord stim trial. Has noticed preop pain up to 10/10 post op pain 2/10 with significant improvement in ability to do housework including dishes, stand, walk, and sit with overall significant pain relief. cc:: CC: Luz Singh NP Review of Systems ROS Status of ROS 10 or more systems reviewed and unremarkable except as noted in history and below PFSH [facility] Medical History Osteoarthritis ?M19.90 - Unspecified osteoarthritis, unspecified site (ICD-10) Anxiety ?F41.9 - Anxiety disorder, unspecified (ICD-10) Diabetes ?E11.9 - Type 2 diabetes mellitus without complications (ICD-10) HTN (hypertension) ?I10 - Essential (primary) hypertension (ICD-10) Surgical History History of Achilles tendon repair ?Z98.890 - Other specified postprocedural states (ICD-10) History of hysterectomy ?Z90.710 - Acquired absence of both cervix and uterus (ICD-10) History of lumbar fusion ?Z98.1 - Arthrodesis status (ICD-10) History of hernia repair ?Z98.890 - Other specified postprocedural states (ICD-10) ?Z87.19 - Personal history of other diseases of the digestive system (ICD-10) Meds Home Medications and Allergies Home Medications ?Medication ?Instructions ?Recorded ?Confirmed ?Type dulaglutide 1.5 mg/0.5 mL 1.5 mg subcut QWEEK 01/24/24 02/21/24 [facility] gabapentin 300 mg capsule 300 mg PO DAILY 01/24/24 02/21/24 History melatonin 5 mg tablet 5 mg PO DAILY 01/24/24 02/21/24 History metformin 1,000 mg tablet 1,000 mg PO BID 01/24/24 02/21/24 History pantoprazole 40 mg tablet,delayed 40 mg PO BID 01/24/24 02/21/24 History release (Protonix) paroxetine HCl 30 mg tablet (Paxil) 30 mg PO DAILY 01/24/24 02/21/24 History verapamil 240 mg 24 hr 240 mg PO DAILY 01/24/24 02/21/24 History capsule,extended release Allergies Allergy/AdvReac Type Severity Reaction Status Date / Time acetaminophen (From [place]) Allergy Unknown Unknown Verified 02/21/24 08:37 codeine Allergy Unknown Unknown Verified 02/21/24 08:37 hydrocodone (From [place]) Allergy Unknown Unknown Verified 02/21/24 08:37 Sulfa (Sulfonamide Allergy Unknown Unknown Verified 02/21/24 08:37 Antibiotics) Exam Constitutional Documenting provider has reviewed patient's vital signs: yes Common normals: no apparent distress, oriented x3, healthy appearing, alert and well nourished General appearance: cooperative HENMT Common normals: normocephalic, hearing grossly normal bilaterally and moist oral mucous membranes Head and scalp: normocephalic Eye Common normals: PERRL Pupil: PERRL Neck & C-Spine Common normals: full ROM General: normal visual inspection Chest Common normals: inspection of chest normal Respiratory Common normals: normal respiratory effort, no retractions and no use of accessory muscles Back & Pelvis Lumbar spine/lower back: ROM limited, pain with ROM and lumbar spinal tenderness Other: positive facet loading L2-4 strength 5/5 in BLE sensation intact BLE Neuro Common normals: oriented x3 Sensorium/orientation: alert Motor exam: strength 5/5 throughout and no movement abnormalities noted Psych Common normals: mental status grossly normal, thought process normal, cooperative, affect normal, speech normal and activity/motor behavior normal Speech: normal speech Thought process: normal thought process Results Additional Findings Additional findings: If on a controlled substance or opioids, I have checked an OARRS report on this patient and there are no aberrancies noted in the prescribing history.??If on a controlled substance or opioid a drug screen was completed and reviewed within the last year, and if there has not been a drug screen completed we ordered one today to monitor higher risk, state monitored pain medication use. As part of providing excellent, safe, comprehensive care, the following was completed at our patient's visit: 1. A medication reconciliation and review to ensure accurate knowledge of current/active medications, including asking our patients to inform us about any [id number] medications or herbal remedies/nutritional supplements/alternative remedies. 2. A review to specifically ensure our patients have had annual screening for screening for depression, screening for tobacco use, and screening for unhealthy alcohol use. For concerning screenings had a discussion with the patient, provided patient education, and recommended follow-up with primary care provider when appropriate. If patient noted with a risk of falling, they received education on strength, gait, and balance training to prevent future risk of falling. Portions of this note may have been carried over from the previous visit and updated as appropriate. Please note this office utilizes paper charting in addition to the electronic medical record. A list of current medications, vitals, and PMH is available there as the clinical staff outside of myself do not have access to [place] charting during the clinic day operations. As part of providing quality comprehensive care the current medications, vitals, and PMH were reviewed in the paper chart. Assessment and Plan Assessment and Plan (1) Failed back syndrome: Plan Pt presents for evaluation of chronic low back pain secondary to failed back syndrome.? The patient presents today for evaluation of Spinal Cord Stimulator trial.? The patient has not yet completed the prescribed anti-biotic course.? She denies any fevers, chills, or night sweats.? The patient states that during the trial pain was decreased by 80%.? She states that her activity level was significantly increased.? The patient has? decided to? proceed with SCS implant. The dressings were removed.? The leads were removed without difficulty.? The insertion sites are clean, dry, and non-erythematous.? There is no Tenderness to palpation.?Bandaid applied. Pt instructed not to submerge in water or scrub the area until her lead sites have completely healed over. pt verbalized understanding. complete antibiotics as ordered
== END 2024-10-04 12:28 | disposition home or self-care (01) ==
LOC: PM 12:27
PROVIDERS: Visit Provider Nurse Practitioner
DX: M96.1 Postlaminectomy syndrome, not elsewhere classified (principal)
CPT/HCPCS: 99211; G0463

== ENCOUNTER 2024-11-08 09:46 | Outpatient (OUT) | payer BC, SELFPAY ==
--- OUTSIDE RECORDS SUMMARY | 2024-11-08 09:50 | XMS_ITS | Clinical Summary ---
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 Other Primary Care Provider Allergies Active Allergy Reactions Criticality Noted Date Comments Codeine Shortness of Breath High 06/23/2022 Sulfa Antibiotics Shortness of Breath High 3 Sertraline Shortness of Breath High 06/23/2022 Medications Montelukast (Singulair) 10 MG tablet Take 1 tablet by mouth daily. rees Active Verapamil 240 MG Tab CR Take 1 tablet by mouth daily. am Active PARoxetine 20 MG tablet Take 1.5 tablets by mouth daily. 30 mg am Active Pantoprazole Sodium (PROTONIX PO) Take 20 mg by mouth. 2 times daily Active Dicyclomine 20 MG tablet Take 1 tablet by mouth every 6 hours. USUALLY BID Active metFORMIN 500 MG tablet Take 2 tablets by mouth 2 times daily with meals. Active Gabapentin 300 MG capsule Take 1 capsule by mouth at bedtime. Active Sodium Hyaluronate 25 MG/2.5ML Solution Prefilled Syringe 0.75 mL by Intra-articular route Once (In Clinic) for 1 dose. 7.5 mL 3 Active Estradiol-Levono rgestrel (Climara Pro) 0.045-0.015 MG/DAY Patch Weekly Place 1 patch on skin. 3 Active hydroCODone-acet aminophen 5-325 MG tabletIndication s:Elective surgery Take 1 tablet by mouth 4 times daily as needed for Moderate Pain for up to 5 days. 20 tablet 3 Active Additional Information Patient not taking.Reported on 06/10/2023 Celecoxib 200 MG capsule Take 1 capsule by mouth 2 times daily. 3 Active Dulaglutide (Trulicity) 0.75 MG/0.5ML Solution Pen-injector injection Inject under the skin. Active Active Problems Problem Noted Date Diagnosed Date Morbid obesity with body mass index of 50 or hig her 08/13/2022 Family History Medical History Relation Name Comments Anxiety Disorder Father Depression Father Diabetes Father Hypertension Father Anxiety Disorder Mother Depression Mother Hypertension Mother Relation Name Status Comments Father Mother Social History Tobacco Use Types Packs/Day Years Used Date Smoking Tobacco: Never Smokeless Tobacco: Never Tobacco Cessation:Counseling Given: Not Answered Alcohol Use Standard Drinks/Week Comments Not Currently 0 (1 standard drink = 0.6 oz pur e alcohol) Comments No Sex and Gender Information Value Date Recorded Sex Assigned at Female 2022 9:55 AM EST Legal Sex Female 2:24 PM EDT Gender Identity Not on file Sexual Orientation Not on file Last Filed Vital Signs Vital Sign Reading Time Taken Comments Blood Pressure 129/80 07/02/2023 9:50 AM EST Pulse 85 07/02/2023 9:50 AM EST Temperature 36.1 C (97 F) 07/02/2023 9:37 AM EST Respiratory Rate 13 07/02/2023 9:37 AM EST Oxygen Saturation 93% 07/02/2023 9:50 AM EST Inhaled Oxygen Concentration - - Weight 166.5 kg (367 lb) 07/02/2023 8:35 AM EST Height 167.6 cm (5' 6 ) 07/02/2023 8:35 AM EST Body Mass Index 59.24 07/02/2023 8:35 AM EST Plan of Treatment Health Maintenance Due Date Last Done Comments HEPATITIS C VIRUS SCREENING 1975 TETANUS 1975 HIV SCREENING DISCUSSION 1990 HEP B VACCINE (1 of 3 - 19+ 3-dose series) 1994 TDAP (ADULT) 1994 CERVICAL CANCER SCREENING DISCUSSION 1996 LIPID SCREENING 2015 COLORECTAL CANCER SCREENING DISCUSSION 2020 COVID-19 VACCINE ( season) 2024 INFLUENZA VACCINE (Season Ended) 2025 04/13/2017, 04/15/2015, 01/08/2014, Additional history exists MAMMOGRAM SCREENING DISCUSSION 03/17/2025 03/17/2024, 12/03/2022, 11/14/2019, Additional history exists PNEUMOCOCCAL VACCINE SERIES Aged Out No longer eligible based on patient's age to complete this topic Goals Goal Patient Goal Type Associated Problems Recent Progress Patient-Stated? Author Physical Therapy Physical Therapy No Wily Peraza PT Note: Therapy Problem List: SI fusion pre-op session [...] prepare for safety after surgery. 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 Return to normal activity of house work/leisure/ADLs with post op therapy as ordered by surgeon if needed. Physical Therapy Physical Therapy No Wily Peraza, PT Note: Therapy Problem List: SI fusion pre-op session needed today. Pain/spasm in the right LB areas. Decreased AROM at the low back with pain Difficulty with change of positions and sleeping on the right side. Static standing bothersome for any length of time. Gait/steps usage is effected brook over the right lower extremity Forward flexed hip and low [...] prepare for safety after surgery. (Met today) Half-Way Goals: Independent core exercises for oil heaterman use to prevent reoccurrence. Return to normal activity of house work/leisure/ADLs with post op therapy as ordered by surgeon if needed. 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 Other [address] [place] [address] PCP - General Other 06/16/22
--- NOTE | 2024-11-08 10:19 | PM.CN ---
Consult Note: HPI Data of Consult Patient: known to practice within the last 3 years Requesting Physician: Luz Singh NP Primary Care Provider: Non-Staff Physician, MD Consult Narrative Reason for consult: knee pain Narrative: Sarah Becerra a 49 year old female with chronic bilateral knee pain secondary to OA presents for evaluation. has failed > 6 weeks of PT/HEP, heat, ice, tylenol, NSAIDs. has also failed to benefit from steroid and REILLY injections to bilateral knees. She is interested in joint replacement however she needs to lose weight first. Her insurance will not cover genicular nerve blocks/RFAs. Pain today 03/09 constant. finds no benefit to current medication regimen, denies side effects. cc:: CC: Luz Singh NP Review of Systems ROS Musculoskeletal Reports: joint pain PFSH PFSH Medical History (Updated 11/08/24 @ 10:22 by Luz Singh NP) Bilateral knee pain ?M25.561 - Pain in right knee (ICD-10) ?M25.562 - Pain in left knee (ICD-10) Osteoarthritis ?M19.90 - Unspecified osteoarthritis, unspecified site (ICD-10) Anxiety ?F41.9 - Anxiety disorder, unspecified (ICD-10) Diabetes ?E11.9 - Type 2 diabetes mellitus without complications (ICD-10) HTN (hypertension) ?I10 - Essential (primary) hypertension (ICD-10) Surgical History History of Achilles tendon repair ?Z98.890 - Other specified postprocedural states (ICD-10) History of hysterectomy ?Z90.710 - Acquired absence of both cervix and uterus (ICD-10) History of lumbar fusion ?Z98.1 - Arthrodesis status (ICD-10) History of hernia repair ?Z98.890 - Other specified postprocedural states (ICD-10) ?Z87.19 - Personal history of other diseases of the digestive system (ICD-10) Meds Home Medications and Allergies Home Medications ?Medication ?Instructions ?Recorded ?Confirmed ?Type dulaglutide 1.5 mg/0.5 mL 1.5 mg subcut QWEEK 01/24/24 02/21/24 [facility] gabapentin 300 mg capsule 300 mg PO DAILY 01/24/24 02/21/24 History melatonin 5 mg tablet 5 mg PO DAILY 01/24/24 02/21/24 History metformin 1,000 mg tablet 1,000 mg PO BID 01/24/24 02/21/24 History pantoprazole 40 mg tablet,delayed 40 mg PO BID 01/24/24 02/21/24 History release (Protonix) paroxetine HCl 30 mg tablet (Paxil) 30 mg PO DAILY 01/24/24 02/21/24 History verapamil 240 mg 24 hr 240 mg PO DAILY 01/24/24 02/21/24 History capsule,extended release Allergies Allergy/AdvReac Type Severity Reaction Status Date / Time acetaminophen (From [facility]) Allergy Unknown Unknown Verified 02/21/24 08:37 codeine Allergy Unknown Unknown Verified 02/21/24 08:37 hydrocodone (From [facility]) Allergy Unknown Unknown Verified 02/21/24 08:37 Sulfa (Sulfonamide Allergy Unknown Unknown Verified 02/21/24 08:37 Antibiotics) Exam Constitutional Documenting provider has reviewed patient's vital signs: yes Common normals: no apparent distress, oriented x3, healthy appearing, alert and well nourished General appearance: cooperative HENMT Common normals: normocephalic, hearing grossly normal bilaterally and moist oral mucous membranes Head and scalp: normocephalic Eye Common normals: PERRL Pupil: PERRL Neck & C-Spine Common normals: full ROM General: normal visual inspection Chest Common normals: inspection of chest normal Respiratory Common normals: normal respiratory effort, no retractions and no use of accessory muscles Extremity Right lower extremity: knee joint Left lower extremity: knee joint Other: moderate crepitus noted to bilateral knees, moderate edema to right knee minimal to left. increased pain with medial and lateral stress testing to bilateral knees, no instability noted. Neuro Common normals: oriented x3 Sensorium/orientation: alert Psych Common normals: mental status grossly normal, thought process normal, cooperative, affect normal, speech normal and activity/motor behavior normal Speech: normal speech Thought process: normal thought process Results Additional Findings Additional findings: If on a controlled substance or opioids, I have checked an [place] report on this patient and there are no aberrancies noted in the prescribing history.??If on a controlled substance or opioid a drug screen was completed and reviewed within the last year, and if there has not been a drug screen completed we ordered one today to monitor higher risk, state monitored pain medication use. As part of providing excellent, safe, comprehensive care, the following was completed at our patient's visit: 1. A medication reconciliation and review to ensure accurate knowledge of current/active medications, including asking our patients to inform us about any [id number] medications or herbal remedies/nutritional supplements/alternative remedies. 2. A review to specifically ensure our patients have had annual screening for screening for depression, screening for tobacco use, and screening for unhealthy alcohol use. For concerning screenings had a discussion with the patient, provided patient education, and recommended follow-up with primary care provider when appropriate. If patient noted with a risk of falling, they received education on strength, gait, and balance training to prevent future risk of falling. Portions of this note may have been carried over from the previous visit and updated as appropriate. Please note this office utilizes paper charting in addition to the electronic medical record. A list of current medications, vitals, and PMH is available there as the clinical staff outside of myself do not have access to [facility] charting during the clinic day operations. As part of providing quality comprehensive care the current medications, vitals, and PMH were reviewed in the paper chart. Assessment and Plan Assessment and Plan (1) Bilateral primary osteoarthritis of knee: (2) Bilateral knee pain: (3) Osteoarthritis: Plan dc celebrex 200mg BID, start nabumetone 500mg BID PRN. historically has failed tylenol, motrin, biofreeze, topical voltaren, and meloxicam. Cannot take codeine or norco due to allergies. continue weight loss efforts. start transdermal therapeutics cream #8 to bilateral knees TID PRN pain, handout provided today. no alternative interventional treatments at this time. may consider duloxetine or PRN opioids in the future. f/u 6 weeks
== END 2024-11-08 09:47 | disposition home or self-care (01) ==
PROVIDERS: Visit Provider Nurse Practitioner
DX: M17.0 Bilateral primary osteoarthritis of knee (principal); M25.561 Pain in right knee; M25.562 Pain in left knee
CPT/HCPCS: G0463

== ENCOUNTER 2025-02-08 14:34 | Outpatient (OUT) | payer BC, SELFPAY ==
--- OUTSIDE RECORDS SUMMARY | 2025-02-08 15:44 | XMS_ITS | CCD ---
Author Organization [facility] Care Team Providers Care Real Estate Inspector Name Role Phone Elias Alex Primary Care Provider Zayra Hart Primary Care Provider Zayra Hart Primary Care Provider Zayra Hart DO Primary Care Provider [phone] HAI, DR GLENN Gambino Admitting Unavailable WEST, DR GLENN Gambino Consulting Unavailable WEST, DR GLENN Gambino Attending Unavailable MISC, DR WALDRON Primary Care Unavailable MISC, DR WALDRON Primary [...] Gambino Consulting Unavailable PERI LEONG Admitting Unavailable ZIEBSULLY, DR ANA Latif Consulting Unavailable PERI LEONG Consulting Unavailable WEST, DR GLENN Gambino Consulting Unavailable WEST, DR GLENN Gambino Attending Unavailable WEST, DR GLENN Gambino Admitting Unavailable MISC, DR WALDRON Primary Care Unavailable Zayra Hart DO Primary Care Provider Zayra Hart DO Primary Care Provider Zayra Hart DO Primary Care Provider NON STAFF Primary Care Provider MD Ministerio Aguirre Attending Provider Yosapnaey DO, Zayra L Primary Care Provider Yostephen DO Zayra L Primary Care Provider [facility]. Other Primary Care Provider MARCE ELLIOT Attending Unavailable SIEGAL, ELLIOT Referring Unavailable [facility] OTHER Primary Care Unavailable [facility] OTHER Primary Care Unavailable [facility]. Other Primary Care Provider LUTMAN V, CHRISTOPHER Admitting Unavailabl e LUTMAN V, CHRISTOPHER Attending Unavailabl e REECENLEY, ZAYRA L Primary Care Unavailable HEMPHILL, KEILA S Attending Unavailable [facility] OTHER Primary Care Unavailable HEMPHILL, KEILA S Referring Unavailable [facility] OTHER Primary Care Unavailable HEMPHILL, KEILA S Referring Unavailable HEMPHILL, KEILA S Attending Unavailable [facility] OTHER Primary Care Unavailable HEMPHILL, KEILA S Referring Unavailable HEMPHILL, KEILA S Attending Unavailable PEDRO PABLO, SELVON F Referring Unavailable YONLEY, ZAYRA L Primary Care Unavailable PEDRO PABLO, SELVON F Referring Unavailable YONLEY, ZAYRA L Primary Care Unavailable PEDRO PABLO, SELVON F Admitting Unavailable PEDRO PABLO, SELVON F Attending Unavailable YONLEY, ZAYRA L Primary Care Unavailable Yonley DO, Zayra L Primary Care Provider [phone] SIEJENNY ELLIOT Attending Unavailable [facility] OTHER Primary Care Unavailable SIEGAL, ELLIOT Referring Unavailable SIEGAL, ELLIOT Attending Unavailable [facility], [facility] OTHER Primary Care Unavailable SIEGAL, ELLIOT Referring Unavailable SIEGAL, ELLIOT Admitting Unavailable LASHONDA, MARCEL R Referring Unavailable [facility], [facility] OTHER Primary Care Unavailable SIEGAL, ELLIOT Attending Unavailable [facility], [facility] OTHER Primary Care Unavailable SIEGAL, ELLIOT Attending Unavailable SIEGAL, ELLIOT Referring Unavailable SIEGAL, ELLIOT Referring Unavailable [facility], [facility] OTHER Primary Care Unavailable SIEGAL, ELLIOT Attending Unavailable HEMPHILL, KEILA S Attending Unavailable [facility], [facility] OTHER Primary Care Unavailable SIEGAL, ELLIOT Referring Unavailable Jennifer NOBLE, Bing Lopez Attending Unavailable Gieditis , Bing Lopez Attending Unavailable Gieditis , Bing Lopez Attending Unavailable Gieditis , Bing Lopez Attending Unavailable YONLEY, ZAYRA L Primary Care Unavailable PEDRO PABLO, SELVON F Referring Unavailable YONLEY, ZAYRA L Primary Care Unavailable PEDRO PABLO, SELVON F Referring Unavailable YONLEY, ZAYRA L Primary Care Unavailable PEDRO PABLO, SELVON F Referring Unavailable PEDRO PABLO, SELVON F Referring Unavailable YONLEY, ZAYRA L Primary Care Unavailable PEDRO PABLO, SELVON F Referring Unavailable YONLEY, ZAYRA L Primary Care Unavailable CLEMENCIA SUN Attending Unavailable YONLEY, ZAYRA L Primary Care Unavailable PEDRO PABLO, SELVON F Referring Unavailable YONLEY, ZAYRA L Primary Care Unavailable YONLEY, ZAYRA L Primary Care Unavailable PEDRO PABLO, SELVON F Referring Unavailable YONLEY, ZAYRA L Primary Care Unavailable PEDRO PABLO, SELVON F Referring Unavailable YONLEY, ZAYRA L Referring Unavailable YONLEY, ZAYRA L Primary Care Unavailable YONLEY, ZAYRA L Referring Unavailable YONLEY, ZAYRA L Primary Care Unavailable PEDRO PABLO, SELVON F Referring Unavailable YONLEY, ZAYRA L Primary Care Unavailable REEDER, MAXIME J Referring Unavailable YONLEY, ZAYRA L Primary Care Unavailable REEDER, MAXIME J Referring Unavailable YONLEY, ZAYRA L Primary Care Unavailable YONLEY, ZAYRA L Primary Care Unavailable CLEMENCIA SUN Attending Unavailable CLEMENCIA SUN Attending Unavailable YONLEY, ZAYRA L Primary Care Unavailable PEDRO PABLO, SELVON F Referring Unavailable YONLEY, ZAYRA L Primary Care Unavailable PEDRO PABLO, SELVON F Referring Unavailable YONLEY, ZAYRA L Primary Care Unavailable CIRILO, HUNTER T Referring Unavailable YONLEY, ZAYRA L Primary Care Unavailable YONLEY, ZAYRA L Primary Care Unavailable YONLEY, ZAYRA L Primary Care Unavailable GONZALO, TINO Referring Unavailable YONLEY, ZAYRA L Primary Care Unavailable CIRILO, HUNTER Referring Unavailable CIRILO, HUNTER Attending Unavailable JORDAN JAIN Attending Unavailable RICARDO VIVEROS Referring Unavailable CIRILO, HUNTER Admitting Unavailable CIRILO, HUNTER Attending Unavailable CIRILO, HUNTER Attending Unavailable JORDAN JAIN Referring Unavailable CIRILO, HUNTER Referring Unavailable CIRILO, HUNTER Referring Unavailable CIRILO, HUNTER Referring Unavailable Allergies Allergy Classification Reported Allergen(s) Allergy Type Date of Onset Reaction(s) Facility Opioid Agonists (1 source) Codeine Drug Allergy 3 Shortness Of Breath [facility] Serotonin Reuptake Inhibitors (SSRIs) (1 source) Sertraline Drug Allergy 4 Nausea And Vomiting [facility] Sulfonamides (antibiotic) (1 source) Sulfonamides (Antibiotic) Drug Allergy 2 Shortness Of Breath, Swelling [facility] (20 sources) Codeine; Translations: [codeine] Drug Allergy 3 Shortness Of Breath [facility] [place], [place] (20 sources) Sertraline; Translations: [SERTRALINE] Drug Allergy 4 Nausea And Vomiting, Shortness of Breath [facility], [place] (20 sources) Sulfonamides (Antibiotic) Propensity to adverse reactions to drug 2 Shortness Of Breath, Swelling [facility], [place] (1 source) Codeine Drug Allergy [facility] (1 source) Sertraline Drug Allergy [facility] (1 source) Sulfonamides (Antibiotic) Drug allergy (disorder) [facility] (20 sources) Penicillin G; Translations: [PENICILLIN G] Drug Allergy 1 Rash [facility] Work Phone: (20 sources) Phentermine; Translations: [PHENTERMINE] Drug Allergy 2 Shortness Of Breath [facility] (2 sources) Sulfonamides (Antibiotic); Translations: [SULFA (SULFONAMIDE ANTIBIOTICS)] Allergy to substance 2 Unknown Reaction [facility] (20 sources) Sulfonamides (Antibiotic) Propensity to adverse reactions to drug 2 Shortness Of Breath, Swelling [facility] (20 sources) Acetaminophen / HYDROcodone; Translations: [hydrocodone-acet aminophen] Drug Allergy 4 Hives, Rash [facility] (1 source) Chlorhexidine; Translations: [Hibiclens] Drug Allergy [facility] Repository (1 source) Sulfonamides (Antibiotic); Translations: [sulfa drugs] Propensity to adverse reactions to drug (disorder) [facility] Repository (1 source) acetaminophen containing compounds; Translations: [acetaminophen containing compounds] Propensity to adverse reactions to drug (disorder) [facility] Repository (3 sources) Chlorhexidine; Translations: [CHLORHEXIDINE] Drug Allergy 5 [facility] Medications Current Medications Medication Drug Class(es) Dates Sig (Normalized) Sig (Original) acetaminophen 500 mg oral tablet (20 sources) Start: 02-11-2023 End: 02-11-2023 acetaminophen (OFIRMEV) [...] / oxyCODONE hydrochloride 5 mg oral tablet (3 sources) Opioid Agonist Start: 06-18-2024 End: 06-21-2024 oxyCODONE-acetaminophen (PERCOCET) 5-325 MG per tablet Indications: Left knee pain, unspecified chronicity Take 1 tablet by mouth every 6 hours as needed for Pain for up to 3 days. Intended supply: 3 days. Take lowest dose possible to manage pain Max Daily Amount: 4 tablets 12 tablet 06/18/2024 06/21/2024 Active Start: 12-24-2023 End: 12-27-2023 oxyCODONE-acetaminophen (END OCET) 5-325 MG per tablet Indications: Tricompartment osteoarthritis of right knee Take 1 tablet by mouth every 6 hours as needed for Pain for up to 3 days. Intended supply: 3 days. Take lowest dose possible to manage pain Max Daily Amount: 4 tablets 12 tablet 0 12/24/2023 12/27/2023 Active Start: 12-24-2023 End: 12-24-2023 oxyCODONE-acetaminophen (PER COCET) 5-325 MG per tablet 1 tablet [id number] 200 actuat albuterol 0.09 mg/actuat metered dose [...] complication, without long-term current use of insulin ([facility]) Check blood sugar once daily in the [...] capsule (20 sources) Nonsteroidal Anti-inflammatory Drug Start: 07-13-2024 take 1 capsule by mouth twice daily celecoxib (CELEBREX) 200 MG capsule Take 1 capsule by mouth 2 times daily 180 capsule 1 07/13/2024 Active Start: 03-23-2023 take 1 capsule by mo ut twice daily Celecoxib 200 MG capsule Take 1 capsule by mouth 2 times daily. 03/23/2023 Active Start: 09-09-2022 take 200 mg by mouth twice angel ly 200 mg, Oral, 2 TIMES DAILY, First dose on Wed09/09/22 at 0900, Until Discontinued, Post-op Start: 10-07-2020 End: 02-11-2023 take 1 capsule by mouth twice daily celecoxib (CELEBREX) 200 MG capsule TAKE 1 CAPSULE BY MOUTH TWICE A DAY 180 capsule 1 07/27/2022 Active Start: 04-29-2019 take 1 capsule by mo [facility] twice daily celecoxib (CELEBREX) 100 MG capsule take 1 capsule by mouth twice a day 60 capsule 5 04/29/2019 Active Start: 12-26-2018 take 1 capsule by [facility] twice daily celecoxib (CELEBREX) 100 MG capsule [...] tablet (14 sources) Histamine-1 Receptor Antagonist Start: 02-19-2022 take 1 tablet by mouth once daily [...] Active Start: 12-16-2018 [facility] desloratadine (CLARINEX) 5 MG tablet [...] Twice daily December 19, 2020 12:00am Start: 10-07-2020 take 1 tablet by rafael th three [...] a week 2 mL 2 02/29/2024 Active Dulaglutide (TRULICITY) 3 MG/0.5ML SOPN (1 source) Start: 02-29-2024 Dulaglutide (TRULICITY) 3 MG/0.5ML SOPN Inject 3 mg into the skin once a week 2 mL 2 02/29/2024 Active Dulaglutide 3 MG/0.5ML SOAJ (18 sources) Start: 04-13-2024 Dulaglutide 3 MG/0.5ML SOAJ Inject 3 mg into the skin once a week 6 mL 1 04/13/2024 Active ertugliflozin 15 mg oral tablet (1 source) Start: 09-18-2021 take 1 tablet by mouth once daily Ertugliflozin L-PyroglutamicAc (STEGLATRO) 15 MG TABS Take 15 mg by mouth daily 30 tablet 5 09/18/2021 Active 168 hr estradiol 0.90417 mg/hr transdermal system (20 sources) Estrogen Start: 01-05-2024 estradiol (CLI CLAUDETTE) 0.05 MG/24HR Indications: Artificial menopause Place 1 patch onto the skin once a week 4 patch 12 01/05/2024 Active Start: 12-19-2020 apply 1 dose transde rmal route every week Estradiol Active 1 PATCH TRANSDERML every week December 19, 2020 12:00am 168 hr estradiol 0.57676 mg/hr / levonorgestrel 0.073566 mg/hr transdermal system (7 sources) Progestin, Estrogen, [...] 3 times daily with meals. 0 Active fluconazole 100 mg oral tablet (3 sources) Azole Antifungal Start: 05-12-2024 End: 05-19-2024 take 1 tablet by mouth once daily fluconazole (DIFLUCAN) 100 MG tablet Take 1 tablet by mouth daily for 7 days 7 tablet 05/12/2024 05/19/2024 Active gabapentin 300 mg oral capsule (20 sources) Anti-epileptic Agent Start: 11-17-2024 End: 05-16-2025 take 1 capsule by mouth twice daily gabapentin (NEURONTIN) 300 MG capsule Indications: Fibromyalgia Take 1 capsule by mouth 2 times daily for 180 days. 180 capsule 1 11/17/2024 05/16/2025 Active Start: 05-26-2024 End: 11-22-2024 take 1 capsule by mouth once daily gabapentin (NEURONTIN) 300 MG capsule Take 1 capsule by mouth nightly for 180 days. 90 capsule 1 05/26/2024 11/22/2024 Active Start: 11-12-2023 End: 05-10-2024 take 1 capsule by mouth once daily gabapentin (NEURONTIN) 300 MG capsule Take 1 capsule by mouth nightly for 180 days. 90 capsule 1 11/12/2023 Active Start: 09-08-2022 take 300 mg by [...] 0 05/13/2022 Active take 1 capsule by [facility] three times daily Gabapentin 300 MG capsule [...] days 7 tablet 0 09/23/2022 09/30/2022 Active lisinopril 5 mg oral tablet (1 source) Angiotensin Converting Enzyme Inhibitor Start: 11-20-2024 take 1 tablet by mouth once daily lisinopril (PRINIVIL;ZESTRIL) 5 MG tablet Take 1 tablet by mouth daily 90 tablet 3 11/20/2024 Active loratadine 10 mg oral tablet (20 sources) Start: 05-12-2024 End: 06-11-2024 take 1 tablet by mouth once daily loratadine (CLARITIN) 10 MG tablet Take 1 tablet by mouth daily 30 tablet 05/12/2024 06/11/2024 Active Start: 10-07-2020 take 10 mg by mouth once daily Loratadine Active 10 MG PO Daily December 19, 2020 12:00am take 1 tablet by rafael th once daily loratadine (CLARITIN) 10 MG tablet Take 10 mg by mouth daily 0 Active metFORMIN hydrochloride 1000 mg oral tablet (20 sources) Biguanide Start: 11-06-2024 take 1 tablet by mouth twice daily at mealtime metFORMIN (GLUCOPHAGE) 1000 MG tablet Indications: Type 2 diabetes mellitus without complication, without long-term current use of insulin (HCC) TAKE 1 TABLET BY MOUTH TWICE A DAY WITH FOOD 180 tablet 1 11/06/2024 Active Start: 05-05-2024 take 1 tablet by rafael th twice daily at mealtime metFORMIN (GLUCOPHAGE) 1000 MG tablet Indications: Type 2 diabetes mellitus without complication, without long-term current use of insulin TAKE 1 TABLET BY MOUTH TWICE A DAY WITH FOOD 180 tablet 1 05/05/2024 Active Start: 11-08-2023 take 1 tablet by rafael th twice daily at mealtime metFORMIN (GLUCOPHAGE) 1000 MG tablet Indications: Type 2 diabetes mellitus without complication, without long-term current use of insulin ([facility]) TAKE 1 TABLET BY MOUTH TWICE A DAY WITH FOOD 180 tablet 1 11/08/2023 Active Start: 03-31-2022 take 1 tablet by rafael th twice daily at mealtime metFORMIN (GLUCOPHAGE) 1000 MG tablet Indications: Type 2 diabetes mellitus without complication, without long-term current use of insulin ([facility]) TAKE 1 TABLET BY MOUTH TWICE A DAY WITH MEALS 180 tablet 1 03/31/2022 Active Start: 10-07-2020 take 1 tablet by rafael th twice daily at mealtime metFORMIN (GLUCOPHAGE) 1000 MG tablet Indications: Type 2 diabetes mellitus without complication, without long-term current use of insulin ([facility]) Take 1 tablet by mouth twice daily with meals 180 tablet 1 09/18/2021 Active Start: 03-18-2020 take 1 tablet by rafael th twice daily at mealtime metFORMIN (GLUCOPHAGE) 1000 MG tablet Indications: Type 2 diabetes mellitus without complication, without long-term current use of insulin ([facility]) TAKE 1 TABLET BY MOUTH TWICE DAILY WITH MEALS 180 tablet 1 03/18/2020 Active Start: 09-11-2019 take 1 tablet by rafael th twice daily at mealtime metFORMIN (GLUCOPHAGE) 1000 MG tablet Indications: Type 2 diabetes mellitus without complication, without long-term current use of insulin ([facility]) Take 1 tablet by mouth 2 times daily (with meals) 180 tablet 1 09/11/2019 Active Start: 03-31-2019 take 1 tablet by rafael th twice daily at mealtime metFORMIN (GLUCOPHAGE) 500 MG tablet Indications: Type 2 diabetes mellitus without complication, without long-term current use of insulin (HCC) Take 1 tablet by mouth 2 times [...] tablet (20 sources) Leukotriene Receptor Antagonist Start: 10-24-2024 take 1 tablet by mouth once daily at bedtime montelukast (SINGULAIR) 10 MG tablet TAKE 1 TABLET BY MOUTH EVERYDAY AT BEDTIME 90 tablet 1 10/24/2024 Active Start: 02-03-2024 take 1 tablet by rafael th once [...] 1 tablet by mouth daily. 0 Active nabumetone 500 mg oral tablet (2 sources) Nonsteroidal Anti-inflammatory Drug Start: 025 take 1 tablet by mouth twice daily as needed for pain nabumetone (RELAFEN) 500 MG tablet Take by mouth nabumetone 500 mg oral tablet (1 source) Nonsteroidal Anti-inflammatory Drug Start: 11-08-2024 take 1 tablet by mouth twice daily as needed for pain 11/08/2024 Active naproxen 500 mg oral tablet (15 sources) Nonsteroidal Anti-inflammatory Drug Start: take 1 tablet by mouth twice daily [...] CAPS Take by mouth 0 Active ondansetron (ZOFRAN-ODT) disintegrating tablet 4 mg (2 [...] tablet (20 sources) Proton Pump Inhibitor Start: 10-24-2024 take 1 tablet by mouth twice daily pantoprazole (PROTONIX) 40 MG tablet TAKE 1 TABLET BY MOUTH TWICE A DAY 180 tablet 1 10/24/2024 Active Start: 05-01-2024 take 1 tablet by rafael th twice daily pantoprazole (PROTONIX) 40 MG tablet TAKE 1 TABLET BY MOUTH TWICE A DAY 180 tablet 1 05/01/2024 Active Start: 11-08-2023 take 1 tablet by rafael th twice [...] Start: 04-02-2021 take 1 tablet by rafael twice daily pantoprazole (PROTONIX) 40 MG tablet [...] Start: 01-23-2020 take 1 tablet by rafael twice daily pantoprazole (PROTONIX) 40 MG tablet TAKE 1 TABLET BY MOUTH TWICE DAILY FOR 30 DAYS 0 01/23/2020 Active Start: 09-11-2019 take 1 tablet by rafael twice daily pantoprazole (PROTONIX) 20 MG tablet 1 po bid 180 tablet 1 09/11/2019 Active Start: 01-25-2019 take 2 tablets by mo [facility] once daily before breakfast pantoprazole (PROTONIX) 20 MG tablet Indications: Gastroesophageal reflux disease, esophagitis presence not specified take 2 tablets by mouth every morning before breakfast 180 tablet 1 01/25/2019 Active PARoxetine hydrochloride 30 mg oral tablet (20 sources) Serotonin Reuptake Inhibitor Start: 11-06-2024 take 1 tablet by mouth once daily in the morning PARoxetine (PAXIL) 30 MG tablet Indications: Anxiety and depression TAKE 1 TABLET BY MOUTH EVERY DAY IN THE MORNING 90 tablet 1 11/06/2024 Active Start: 05-05-2024 take 1 tablet by rafael th once daily in the morning PARoxetine (PAXIL) 30 MG tablet Indications: Anxiety and depression TAKE 1 TABLET BY MOUTH EVERY DAY IN THE MORNING 90 tablet 1 05/05/2024 Active Start: 11-08-2023 take 1 tablet by rafael th once [...] 02-20-2022 take 1 tablet by rafael th once daily in the morning PARoxetine (PAXIL) 30 MG tablet Indications: Anxiety and depression TAKE 1 TABLET BY MOUTH EVERY DAY IN THE MORNING 90 tablet 1 02/20/2022 Active Start: 10-07-2020 take 1 tablet by rafael th once [...] 09-11-2019 take 1 tablet by rafael th once daily in the morning PARoxetine (PAXIL) 30 MG tablet Indications: Anxiety and depression Take 1 tablet by mouth every morning 90 tablet 1 09/11/2019 Active Start: 02-27-2019 take 1 tablet by rafael th once [...] Start: 03-18-2019 take 2 tablets by mo ut once daily at mealtime predniSONE (DELTASONE) 20 MG tablet Indications: Acute bronchitis, unspecified organism Take 2 tablets by mouth daily x 3 days. Take with food. 6 tablet 0 03/18/2019 Active progesterone 100 mg oral capsule (20 sources) Progesterone Start: 01-05-2024 End: 01-05-2025 take 1 capsule by mouth once daily progesterone (PROMETRIUM) 100 MG CAPS capsule Indications: Endometriosis , Artificial menopause Take 1 capsule by mouth daily 90 capsule 3 01/05/2024 01/05/2025 Active Start: 11-04-2023 take 1 capsule by [facility] once daily progesterone (PROMETRIUM) 100 MG CAPS [...] Wed09/08/22 at 1254, Until Discontinued, Cramping, Post-op topiramate 50 mg oral tablet (4 sources) Start: 11-17-2024 take 1 tablet by mouth once daily topiramate (TOPAMAX) 50 MG tablet 50 mg po nightly 90 tablet 1 11/17/2024 Active Start: 07-19-2024 take 1 tablet by rafael th once daily, then take 2 tablets by mouth once daily topiramate (TOPAMAX) 25 MG tablet 25 mg po nightly for 2 wks then 50 mg po nightly 60 tablet 3 07/19/2024 Active traMADol hydrochloride 50 mg oral tablet (4 sources) Opioid Agonist Start: 12-10-2021 End: 12-10-2021 traMADol [...] tablet (20 sources) Calcium Channel Johny Start: 10-24-2024 take 1 tablet by mouth once daily verapamil (CALAN SR) 240 MG extended release tablet TAKE 1 TABLET BY MOUTH EVERY DAY 90 tablet 1 10/24/2024 Active Start: 02-03-2024 take 1 tablet by rafael th once [...] Start: 01-09-2019 take 1 capsule by mo [facility] once daily in the evening verapamil (VERELAN) [...] mg docusate sodium 50 mg / sennosides, intermediate 8.6 mg oral tablet (3 sources) Start: [...] tablet by mouth daily 0 07/23/2016 Active ondansetron 4 mg oral tablet (20 sources) Serotonin-3 Receptor Antagonist Start: 11-18-2023 End: 05-12-2024 take 1 tablet by mouth three times daily as needed for nausea ondansetron (ZOFRAN) 4 MG tablet Take 1 tablet by mouth 3 times daily as needed for Nausea or Vomiting 30 tablet 1 11/18/2023 05/12/2024 Discontinued (LIST CLEANUP) Start: 07-02-2023 End: 07-02-2023 Ondansetron 4mg/2ml (ZOFRAN) [...] 05-15-2019 ondansetron (Z OFRAN) injection 4 mg 2 ml orphenadrine citrate 30 mg/ml injection [...] 1 ml triamcinolone acetonide 40 mg/ml injection (11 sources) Corticosteroid Start: 05-12-2024 End: 05-12-2024 inject 1 dose by intramuscular injection once 80 mg, IntraMUSCular, ONCE, 1 dose, On Wed05/12/24 at 1530 Start: 08-02-2023 End: 08-02-2023 triamcinolone (KENALOG-40) i njection 2 mL Start: 08-02-2023 End: 08-02-2023 2 [...] [Anxiety disorder, unspecified] Onset: 8 09-16-2017 Chronic Coagulation and hemorrhagic disorders (2 sources) Spontaneous ecchymoses; Translations: [Spontaneous ecchymoses] Onset: 5 Episodic Complications of surgical procedures or medical care [...] and biological substances, initial encounter] Episodic Endometriosis (20 sources) Endometriosis (clinical); Translations: [Endometriosis, unspecified] Onset: [...] Translations: [Osteoarthritis of right knee] 05-23-2020 Other aftercare (4 sources) Encounter for surgical aftercare following surgery on the circulatory system; Translations: [ENC SURG [facility] FLW SURG CIRC SYS] Onset: 1 Episodic Other connective tissue disease (1 source) Trochanteric bursitis; Translations: [Trochanteric bursitis, right hip] 05-30-2024 Episodic Other nervous system disorders (3 sources) Chronic pain syndrome; Translations: [Chronic pain syndrome] Onset: 5 12-11-2024 Chronic Other nervous system disorders (2 sources) Chronic pain syndrome; Translations: [Chronic pain syndrome] Onset: 5 Chronic Other nervous system disorders (2 sources) Other acute postprocedural pain; Translations: [Other acute postprocedural pain] Onset: 5 Episodic Other non-traumatic joint disorders (20 sources) [...] hip] 10-23-2022 Episodic Other non-traumatic joint disorders (1 source) Pain of right shoulder joint; Translations: [Pain in right shoulder] 08-28-2024 Episodic Other non-traumatic joint disorders (3 sources) Pain in right shoulder; Translations: [Pain in right shoulder] Onset: 5 Episodic Other non-traumatic joint disorders (15 sources) [...] Weight gain; Translations: [Weight gain] Episodic Other skin disorders (20 sources) H/O: skin recipient; 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] Onset: 3 02-10-2013 Chronic Other skin disorders (20 sources) Postoperative state; 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] Onset: 3 02-10-2013 Chronic Other skin disorders (2 sources) Eruption; Translations: [Rash and other nonspecific skin [...] than remedying health state, unspecified] 02-11-2023 Episodic Residual codes; unclassified (2 sources) Pain, unspecified; Translations: [Pain, unspecified] Onset: 5 Episodic Spondylosis; intervertebral disc disorders; other back problems (10 sources) Bilateral osteoarthritis of sacroiliac joints; Translations: [Sacroiliitis, not elsewhere classified] Onset: 5 Chronic Unclassified (2 sources) Patient encounter status; Translations: [Screening for cardiovascular condition] Unclassified (20 sources) Body mass index 40+ - severely obese; Translations: [Adult body mass index 40 and over] Onset: 2 10-29-2021 Unclassified (1 source) Post endometrial ablation syndrome; 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] Onset: 3 Unclassified (2 sources) Post-op; Translations: [Post-op] Onset: 5 Past or Other Problems Problem Classification Problem [...] ulcer] Onset: 01-23-2013 Resolved: 02-04-2023 01-23-2013 Chronic E Codes: Fall (2 sources) Accidental fall ; Translations: [Unspecified fall, initial encounter] Onset: 05-30-2024 05-30-2024 Episodic Other acquired deformities (2 sources) Varus deformity, not elsewhere classified, right knee; Translations: [Varus deformity, not elsewhere classified, right knee] Onset: 02-14-2024 Episodic Other acquired deformities (2 sources) Varus deformity, not elsewhere classified, left knee; Translations: [Varus deformity, not elsewhere classified, left knee] Onset: 02-14-2024 Episodic Other connective tissue disease (20 sources) Fibromyalgia; Translations: [Fibromyalgia] Onset: 05-13-2022 05-13-2022 Episodic Other connective tissue disease (1 source) Trochanteric bursitis, right hip; Translations: [Trochanteric bursitis, right hip] Onset: 05-30-2024 Episodic Other diseases of veins and lymphatics (20 sources) Peripheral venous insufficiency; Translations: [Venous insufficiency (chronic) (peripheral)] Onset: 10-29-2021 10-29-2021 Episodic Other gastrointestinal disorders (20 sources) Pelvic mass; Translations: [Intra-abdominal and pelvic swelling, mass and lump, unspecified site] Onset: 09-08-2022 Resolved: 09-15-2022 Episodic Other non-traumatic joint disorders (2 sources) Pain in right hip joint; Translations: [Pain in right hip] Onset: 08-10-2023 08-10-2023 Episodic Other non-traumatic joint disorders (2 sources) Pain in left knee; Translations: [Pain in joint, lower leg] Onset: 06-18-2024 06-18-2024 Episodic Other non-traumatic joint disorders (1 source) Pain in right hip; Translations: [Pain in right hip] Onset: 08-10-2023 Episodic Other screening for suspected conditions (not mental disorders or infectious disease) (1 source) Encounter for screening mammogram for malignant neoplasm of breast; Translations: [Encounter for screening mammogram for malignant neoplasm of breast] Onset: 03-17-2024 Episodic Other skin disorders (1 source) Rash and other nonspecific skin eruption; Translations: [Rash and other nonspecific skin eruption] Onset: 05-12-2024 Episodic Residual codes; unclassified (20 sources) FH: Thrombosis; Translations: [Family history of ischemic heart disease and other diseases of the circulatory system] Onset: 10-29-2021 Resolved: 10-29-2021 10-29-2021 Episodic Residual codes; unclassified (20 sources) Postoperative state; Translations: [Other specified postprocedural states] Onset: 09-07-2022 Episodic Residual codes; unclassified (1 source) Other specified postprocedural states; Translations: [Other specified postprocedural states] Onset: 09-08-2022 Episodic Spondylosis; intervertebral disc disorders; other back problems (20 sources) Acute back pain with sciatica; Translations: [Chronic low back pain] Onset: 08-10-2023 Episodic Varicose veins of lower extremity (20 sources) Skin ulcer; Translations: [Varicose veins of unspecified lower extremity with ulcer of unspecified site] Onset: 01-23-2013 Resolved: 02-04-2023 01-23-2013 Episodic Results Test Name Value Interpretation Reference Range Facility 36on 01-10-2025 36 Pt called stating that she can feel her spinal cord stimulator zapping when she moves a certain way. I asked pt if she had reached out to the [employer] reps for possible adjustment. Pt stated that she did not, and that she wasn't sure who to call with this issue. I advised pt to contact [employer] to request an adjustment, and if the symptoms continue after adjustment, then to call our office to schedule a follow up with Dr. Sánchez. Pt verbalized understanding. [employer] reps will need to be notified. Normal [facility] Office Visiton 12-25-2024 Follow-up visit [id number] Sarah Harris 1975 F Date Provider Department Center 12/25/2024 HUNTER PANDEY [facility] SURG Second Fl Family History Family history unknown: Yes Level of Service:23272 HI POSTOP FOLLOW UP VISIT RELATED TO ORIGINAL PX Reason for Visit and Comments: Post-op [483] Normal [facility] MRI THORACIC SPINE WO CONTRA STon 12-16-2024 MRI THORACIC SPINE WO CONTRAST EXAMINATION: MRI OF THE THORACIC SPINE WITHOUT CONTRAST 12/11/2024 8:28 am TECHNIQUE: Multiplanar multisequence MRI of the thoracic spine was performed without the administration of intravenous contrast. COMPARISON: None. HISTORY: ORDERING SYSTEM PROVIDED HISTORY: Chronic pain syndrome FINDINGS: BONES/ALIGNMENT: There is normal alignment of the spine. The vertebral body heights are maintained. The bone marrow signal appears unremarkable. No marrow edema. SPINAL CORD: No abnormal cord signal is seen. SOFT TISSUES: No paraspinal mass identified. DEGENERATIVE CHANGES: At T2-T3 there is right greater than left facet and ligamentum flavum hypertrophy resulting in mild spinal canal stenosis and moderate right and mild left foraminal stenosis. IMPRESSION: Degenerative changes in the upper thoracic spine as detailed above with moderate right foraminal stenosis at T2-T3 secondary to facet hypertrophy. Interpreted by: Henok Marie MD Signed by: Henok Marie MD 12/16/24 [facility] H[facility]P reviewed. The patient was examined and there are no changes to the H&P. Normal [facility] OPNOTEon 12-14-2024 OPNOTE T8 Laminotomy for SC S Placement System Operative Note Date: 12/14/2024 Location: [facility] OR Name: Sarah Harris, : 1975, Diagnosis Pre-op Diagnosis * Chronic pain syndrome [G89.4] Post-op Diagnosis * Chronic pain syndrome [G89.4] Procedures T8 Laminotomy for SCS Placement System 61078 - HI WU IMPLTJ NSTIM ELTRDS PLATE/PADDLE EDRL T8 Laminotomy for SCS Placement System 23989 - HI INSJ/RPLCMT SPINAL NPG/RCVR POCKET CRTJ&CONNJ Surgeons Primary: Hunter Sánchez MD Procedure Summary Anesthesia: General ASA: ASA status not filed in the log. Estimated Blood Loss: 25 mL Drains: * None in log * Implants Type Name Action Serial No. Lead ARTISAN 50 CM 2X8 RESEARCH HYDROLOGIST KIT Implanted [id number] Device WAVEWRITER ALPHA 16 GENERATOR [id number] Implanted [id number] Staff: Exercise Science Instructor: Ministerio Mackey RN Relief Exercise Science Instructor: Melanie Goddard RN Scrub Person: Marycarmen Veliz CST [employer] Path[employer] Professor: Rufino Gonzalez CSA Indications: Sarah Harris is an 49 y.o. female who is having surgery for Chronic pain syndrome [G89.4]. She has a longstanding history of chronic back and proximal lower extremity despite surgical and nonsurgical therapies. She had recently undergone a trial of percutaneous [employer] spinal cord stimulation by her treating pain management doctor with substantial improvement in chronic pain symptoms. Based on these findings, the patient was offered a thoracic laminotomy and placement of a permanent spinal cord stimulation system. After discussion of the surgery itself, its risk, its benefits, and the alternatives, she elected to proceed and informed consent was obtained. Procedure Details: The patient was brought to the operating theater. General endotracheal anesthesia was induced without difficulty. Adequate vascular access was ensured. No Harper catheter was placed. The patient was rolled into the prone position on a waiting Ramón table. Care was taken to ensure that all pressure points were padded adequately. The proposed sites of surgery in the right flank region and the lower thoracic midline region were identified. The sites were marked, prepped and draped in the normal sterile fashion. A timeout was performed, confirming the correct patient, procedure, and site. It was ensured that preoperative antibiotics had been delivered. Intraoperative radiographs were obtained localizing the T8-9 interspace. Skin site overlying the T8-9 interspace was infiltrated with local anesthetic. Similarly, the site for IPG placement in the right flank was infiltrated with local anesthetic. Attention was turned first to the thoracic site. Here, a #10 blade was used to create a vertical incision in the lower thoracic midline. Dissection was carried down sharply through the superficial tissue. Monopolar cautery was used to extend the plane of dissection to the deep thoracic fascia. The thoracic fascia was opened in the midline. Subperiosteal dissection was carried down the lateral faces of the T8 and the superior portion of the T9 spinous processes. Monopolar cautery was used to carry dissection across the lamina taking care not to disrupt the facet joints. A radiopaque instrument was placed beneath the inferior margin of the T8 lamina and additional intraoperative radiographs were obtained confirming the correct level of exposure. A self-retaining retractor system was placed to aid in exposure. The wound was irrigated thoroughly and hemostasis was ensured. A single action Leksell rongeur was used to remove the majority of the T8 spinous process. A forward angle curette was used to define the inferior margin of the T8 lamina. A #3 Kerrison rongeur was introduced and multiple bites were taken until a laminotomy defect had been created in the inferior half of the lamina. Beneath, ligamentous structures including the ligamentum flavum were resected piece gonzalez until the thecal sac could be clearly visualized. The wound was again irrigated thoroughly and hemostasis was ensured. A penetrating towel clip was used to create a passage in the superior aspect of the T9 lamina to serve as an anchoring point. A flexible dissector was introduced into the epidural space in the laminotomy defect and directed cranially. A new [employer] Artisan spinal cord stimulation paddle type lead was then selected and fitted into the laminotomy defect. It was directed under fluoroscopic guidance in a cranial fashion. After several repositioning attempts, the electrode was left in position with slight deviation to to the left of midline. It spanned the inferior T7 to inferor T8 levels on intraoperative x-ray. Anchors were introduced onto the leads of the spinal cord stimulation array. A single 0 silk suture was used to bind the anchors and the leads they contained the superior aspect of the T9 spinous process. Final intraoperative x-rays were obtained confirming stable position of the electrod (more content not included)... Normal [facility] OPNOTE Date: 12/14/2024 Location: [facility] OR Name: Sarah Harris, : 1975, Diagnosis Pre-op Diagnosis * Chronic pain syndrome [G89.4] Post-op Diagnosis * Chronic pain syndrome [G89.4] Procedures T8 Laminotomy for SCS Placement System 73500 - HI WU IMPLTJ NSTIM ELTRDS PLATE/PADDLE EDRL T8 Laminotomy for SCS Placement System 35298 - HI INSJ/RPLCMT SPINAL NPG/RCVR POCKET CRTJ&CONNJ Surgeons Primary: Hunter Sánchez MD Procedure Summary Anesthesia: General ASA: ASA status not filed in the log. Estimated Blood Loss: Minimal Drains: * None in log * Implants Type Name Action Serial No. Lead ANICETON 50 CM 2X8 RESEARCH HYDROLOGIST KIT Implanted [id number] Device WAVEWRITER ALPHA 16 GENERATOR [id number] Implanted [id number] Staff: Exercise Science Instructor: Ministerio Mackey RN Relief Exercise Science Instructor: Melanie Goddard RN Scrub Person: Marycarmen Veliz CST [employer] Path[employer] Professor: Rufino Gonzalez CSA Indications: Sarah Harris is an 49 y.o. female who is having surgery for Chronic pain syndrome [G89.4]. Findings: Electrode to slight deviation to left of midline spanning mid T7 to interior T8. Appropriate lead impedance. Complications: None; patient tolerated the procedure well. Disposition: PACU - hemodynamically stable. Condition: stable Specimens Collected: No specimens collected during this procedure. Attending Attestation: I performed the procedure. Hunter Sánchez [facility] POCT GLUCOSE METER UNSOLICIT ED RESULTSon 12-14-2024 Glucose [Mass/Vol] 139 mg/dL High 70-105 [facility] Comment on above: Order Comment: Waive d Testing in the ED is performed under the ED CLIA certificate #[id number]. Result Comment: [email or web address] Performed By: #### L [id number] #### [facility] ([facility]) [address] [place] [address] Glucose [Mass/Vol] 104 mg/dL Normal 70-105 [facility] Comment on above: Order Comment: Waive d Testing in the ED is performed under the ED CLIA certificate #[id number]. Result Comment: [email or web address] Performed By: #### L [id number] #### [facility] [address] [place] [address] Orders Onlyon 12-05-2024 Orders Only [id number] Sarah Harris 1975 F Date Provider Department Center 12/05/20242003-MINDY RIZO [facility] PAC HI Medical C Family History Family history unknown: Yes [facility] 36on 12-04-2024 36 Pt scheduled for MRI on 12/11 at 9 AM. Will Call [facility] to have imaging pushed. [facility] 36 Called and spoke wit h pt. I confirmed that order was sent to [facility] on 11/24/24 via fax with instructions to contact pt to schedule MRI prior to 12/14/24. I asked pt if she had tried contacting [facility] to schedule, she stated that she did not. I instructed pt to call [facility] to schedule and that I will be refaxing order. I also explained to pt that if MRI is scheduled for after 12/14, then surgery will need to be rescheduled. I provided pt with my direct extension and asked for her to call me if any issues. Pt verbalized understanding. [facility] 36 Pt called and left voicemail on 11/30/24 that [facility] has not called her to schedule her MRI. Pt scheduled for surgery on 12/14/24 [facility] Letter (Out)on 11-24-2024 Letter (Out) [id number] Sarah Harris 1975 F Date Provider Department Center 11/24/2024 None-None [facility] AUTH HI Medical C Family History Family history unknown: Yes [facility] 36on 11-23-2024 36 Pt MSSA+. Discussed with pt. Pt has chlorhexidine allergy. Advised pt to wash daily starting 5 days prior to surgery with antibacterial liquid soap and water. Pt verbalized understanding. Pre op orders placed. [facility] ANTI C3 DATon 11-21-2024 ANTI C3 MIGUEL ANGEL Negative [facility] Comment on above: Performed By: #### L [id number] #### [facility] ([facility]) [address] [place] [address] ANTI IGG DATon 11-21-2024 ANTI IGG MIGUEL ANGEL Negative [facility] Comment on above: Performed By: #### L [id number] #### [facility] BLOOD BANK , ANTIBODY IDENTIFICATIONon ANTIBODY IDENTIFICATION FYA [facility] Comment on above: Performed By: #### L [id number] #### [facility] BLOOD BANK , APTTon 11-21-2024 ACTIVATED PARTIAL THROMBOPLASTIN TIME IN PPP BY COAGULATION ASSAY 27.9 Seconds Normal 25.0-35.0 [facility] Comment on above: Result Comment: Clin ical significance of the APTT is questionable in the presence of heparin. Performed By: #### L [id number] #### [facility] ([facility]) [address] [place] [address] BASIC METABOLIC PANELon - Anion gap [Moles/Vol] 11 mmol/L Normal 7-20 [facility] Comment on above: Performed By: #### L [id number] #### [facility] [address] [place] [address] Calcium [Mass/Vol] 8.9 mg/dL Normal 8.6-10.3 [facility] Comment on above: Performed By: #### L [id number] #### [facility] ([facility]) [address] [place] [address] Chloride [Moles/Vol] 104 mmol/L Normal 98-107 [facility] Comment on above: Performed By: #### L [id number] #### [facility] ([facility]) [address] [place] [address] CO2 [Moles/Vol] 26 mmol/L Normal 21-31 [facility] Comment on above: Performed By: #### L [id number] #### [facility] ([facility]) [address] [place] [address] Creatinine [Mass/Vol] 0.73 mg/dL Normal 0.60-1.20 [facility] Comment on above: Performed By: #### L [id number] #### [facility] ([facility]) [address] [place] [address] GLOMERULAR FILTRATION RATE ML/MIN/1.73 SQ M.PREDICTED 100.8 mL/min/1.73m*2 Normal >60.0 [facility] Comment on above: Result Comment: The [facility]???s estimated glomerular filtration rate (eGFR) will no longer include consideration of race in its calculation. The National Kidney Foundation???s eGFR Task Force developed new recommendations for the estimation of the glomerular filtration rate in the [place] They recommend immediate implementation of the new equation refit without the race variable in all laboratories because the calculation does not include race. In addition to not including race in the calculation and reporting, it included diversity in its development, and has acceptable performance characteristics and potential consequences that do not disproportionately affect any one group of individuals. Performed By: #### L [id number] #### [facility] ([facility]) [address] [place] [address] Glucose [Mass/Vol] 106 mg/dL High 70-100 [facility] Comment on above: Performed By: #### L [id number] #### [facility] ([facility]) [address] [place] [address] Potassium [Moles/Vol] 4.1 mmol/L Normal 3.5-5.1 [facility] Comment on above: Performed By: #### L [id number] #### [facility] ([facility]) [address] [place] [address] Sodium [Moles/Vol] 137 mmol/L Normal 136-145 [facility] Comment on above: Performed By: #### L [id number] #### [facility] ([facility]) [address] [place] [address] Urea nitrogen [Mass/Vol] 10 mg/dL Normal 7-25 [facility] Comment on above: Performed By: #### L [id number] #### [facility] ([facility]) [address] [place] [address] UREA NITROGEN/CREATININE (MASS RATIO) IN SER/PLAS 13.7 Normal [facility] Comment on above: Performed By: #### L [id number] #### [facility] ([facility]) [address] [place] [address] CBC WITH AUTO DIFFERENTIALon 11-21-2024 Basophils (Bld) [#/Vol] 0.08 10*3/uL Normal 0.00-0.20 [facility] Comment on above: Performed By: #### L [id number] #### [facility] ([facility]) [address] [place] [address] Basophils/100 WBC (Bld) 0.7 % Normal 0.0-1.0 [facility] Comment on above: Performed By: #### L [id number] #### [facility] ([facility]) [address] [place] [address] Eosinophils (Bld) [#/Vol] 0.62 10*3/uL High 0.00-0.50 [facility] Comment on above: Performed By: #### L [id number] #### [facility] ([facility]) [address] [place] [address] Eosinophils/100 WBC (Bld) 5.7 % Normal 0.0-6.0 [facility] Comment on above: Performed By: #### L [id number] #### [facility] ([facility]) [address] [place] [address] Erythrocyte distribution width (RBC) [Ratio] 15.4 % High 11.5-15.0 [facility] Comment on above: Performed By: #### L [id number] #### [facility] ([facility]) [address] [place] [address] ERYTHROCYTE MEAN CORPUSCULAR HEMOGLOBIN CONCENTRATION (G/DL) BY AUTOMATED 30.6 g/dL Low 32.0-35.0 [facility] Comment on above: Performed By: #### L [id number] #### [facility] ([facility]) [address] [place] [address] Hematocrit (Bld) [Volume fraction] 38.6 % Normal 36.0-45.0 [facility] Comment on above: Performed By: #### L [id number] #### [facility] ([facility]) [address] [place] [address] Hemoglobin (Bld) [Mass/Vol] 11.8 g/dL Low 12.0-15.0 [facility] Comment on above: Performed By: #### L [id number] #### [facility] [address] [place] [address] Immature granulocytes (Bld) [#/Vol] 0.05 10*3/uL Normal 0.00-0.20 [facility] Comment on above: Performed By: #### L [id number] #### [facility] ([facility]) [address] [place] [address] Immature granulocytes/100 WBC (Bld) 0.5 % Normal 0.0-1.0 [facility] Comment on above: Performed By: #### L [id number] #### [facility] ([facility]) [address] [place] [address] Lymphocytes (Bld) [#/Vol] 2.54 10*3/uL Normal 1.20-4.00 [facility] Comment on above: Performed By: #### L [id number] #### [facility] ([facility]) [address] [place] [address] Lymphocytes/100 WBC (Bld) 23.2 % Normal 20.0-45.0 [facility] Comment on above: Performed By: #### L [id number] #### [facility] ([facility]) [address] [address] MCH (RBC) [Entitic mass] 25.2 pg Low 27.0-33.0 [facility] Comment on above: Performed By: #### L [id number] #### [facility] ([facility]) [address] [place] [address] MCV (RBC) [Entitic vol] 82.3 fL Normal 82.0-98.0 [facility] Comment on above: Performed By: #### L [id number] #### [facility] ([facility]) [address] [place] [address] Monocytes (Bld) [#/Vol] 0.67 10*3/uL Normal 0.10-1.00 [facility] Comment on above: Performed By: #### L [id number] #### [facility] ([facility]) [address] [place] [address] Monocytes/100 WBC (Bld) 6.1 % Normal 5.0-12.0 [facility] Comment on above: Performed By: #### L [id number] #### [facility] ([facility]) [address] [place] [place] [address] Neutrophils (Bld) [#/Vol] 6.99 10*3/uL Normal 1.60-7.60 [facility] Comment on above: Performed By: #### L [id number] #### [facility] ([facility]) [address] [place] [address] Neutrophils/100 WBC (Bld) 63.8 % Normal 40.0-72.0 [facility] Comment on above: Performed By: #### L [id number] #### [facility] [facility] [address] [place] [address] NRBC (PER 100 WBCS) BY AUTOMATED COUNT 0.0 % Normal 0 [facility] Comment on above: Performed By: #### L [id number] #### [facility] ([facility] [address] [place] [address] PLATELETS (10*3/UL) IN BLOOD AUTOMATED COUNT 331 10*3/uL Normal 150-400 [facility] Comment on above: Performed By: #### L [id number] #### [facility] ([facility]) [address] [place] [address] RBC (Bld) [#/Vol] 4.69 10*6/uL Normal 3.80-5.00 [facility] Comment on above: Performed By: #### L [id number] #### [facility] ([facility]) [address] [place] [address] WBC (Bld) [#/Vol] 10.95 10*3/uL High 4.00-10.60 [facility] Comment on above: Performed By: #### L [id number] #### [facility] ([facility]) [address] [place] [address] Consulton 11-21-2024 Consult [id number] Sarah Harris 1975 F Date Provider Department Center 11/21/2024 HUNTER PANDEY [facility] SURG Second Fl Family History Family history unknown: Yes Level of Service:97770 HI OFFICE/OUTPATIENT NEW MODERATE MDM 45 MINUTES Reason for Visit and Comments: Consult [484] Normal [facility] HPon 11-21-2024 HP Neurosurgery Consult Chief Complaint: Chronic pain syndrome History of Present Illness: Sarah Harris is a 49 y.o. female who presents in kind referral from pain management in [facility] to discuss placement of a spinal cord stimulation system. She reports that she had suffered from more than 10 years of back pain. She had undergone a prior lumbar fusion and reports no substantial improvement or worsening after surgical therapy. Pain is centered in the right greater than left low back. It radiates into the left buttock and down the left lateral leg to approximately the knee. She does note some knee pain with walking related to osteoarthritis of the right knee. She denies any substantial numbness or weakness. She has undergone multiple conservative therapies without a great deal of relief. Most recently, she had undergone a percutaneous trial of [employer] spinal cord stimulation by Dr. Rodriguez. During the placement of the electrodes on 09/29/2024, the most superior electrode was placed to the top of the C7 vertebral body per his operative documentation. The patient experienced a substantial degree of relief in the ensuing trial. She reports at least 65% improvement in pain as well as improvement in functional activities such as standing and walking. Most notably, she noted substantial improvement in her sleep quality and duration. She presents today to discuss placement of a permanent spinal cord stimulation system. Problem List: Problem List[1] Past Medical History: Medical History[2] Past Surgical History: Surgical History[3] Medications: Current Medications[4] Allergies: Allergies[5] Social History: Social History Socioeconomic History Marital status: Spouse name: Not on file Number of children: Not on file Years of education: Not on file Highest education level: Not on file Occupational History Not on file Tobacco Use Smoking status: Never Smokeless tobacco: Never Vaping Use Vaping status: Never Used Substance and Sexual Activity Alcohol use: Never Drug use: Never Sexual activity: Not on file Other Topics Concern Not on file Social History Narrative Not on file Social Drivers of Health Financial Resource Strain: Low Risk (02/04/2023) Received from [facility] Overall Financial Resource Strain (CARDIA) Difficulty of Paying Living Expenses: Not hard at all Food Insecurity: No Food Insecurity (07/19/2024) Received from [facility] Hunger Vital Sign Worried About Running Out of Food in the Last Year: Never true Ran Out of Food in the Last Year: Never true Transportation Needs: No Transportation Needs (07/19/2024) Received from [facility] PRAPARE - Transportation Lack of Transportation (Medical): No Lack of Transportation (Non-Medical): No Physical Activity: Not on file Stress: Not on file Social Connections: Not on file Intimate Partner Violence: Unknown (11/21/2024) Humiliation, Afraid, Rape, and Kick questionnaire Fear of Current or Ex-Partner: Patient unable to answer Emotionally Abused: Not on file Physically Abused: Not on file Sexually Abused: Not on file Housing Stability: Low Risk (07/19/2024) Received from [facility] Housing Stability Vital Sign Unable to Pay for Housing in the Last Year: No Number of Times Moved in the Last Year: 0 Homeless in the Last Year: No Family History: Family History[6] Review of Systems: Review of Systems Musculoskeletal: Positive for arthralgias (Right knee), back pain and gait problem. Exam: Vitals: Vitals: 11/21/24 1433 BP: 116/86 Pulse: 87 Temp: 36.7 ???C (98.1 ???F) Body mass index is 52.46 kg/m???. I/O: @IOBRIEF@ General: Awake, alert, NAD. Well groomed. HEENT: Normocephalic, atraumatic. Neck supple without lymphadenopathy. Heart: Regular rate and rhythm. Lungs: Clear to auscultation bilaterally. Abdomen: Soft, non-tender, non-distended. Bowel sounds present. Extremities: No cyanosis or edema. No noted deformities. Back Exam: Well-healed lower lumbar midline wound. Neurologic: Appropriate affect during exam. Oriented x 3. Normal fluency and prosody of speech. Content appropriate and higher function appears intact. CN II-XII grossly intact. PERRL. EOMI. Face symmetric strength and sensation. Tongue midline. Shoulder shrug full strength and symmetric. Palate elevates symmetrically. Motor 5/5 throughout. No pronator drift. Sensation intact to light touch throughout. Gait symmetric with normal nelson and agility in toe, heel, and tandem gait. FTN intact. Straight leg raise negative bilaterally. No Mathews's sign present. No ankle clonus. No scapulohumeral reflex. Lab: Lab on 11/21/2024 Component Date Value Ref Range Status Sodium 11/21/2024 137 136 - 145 mmol/L Final Potassium 11/21/2024 4.1 3.5 - 5.1 mmol/L Final (more content not included)... Normal [facility] Labon 11-21-2024 Lab [id number] Sarah Harris 1975 F Date Provider Department Center 11/21/20245-[facility] OPD LAB RESOURCE [facility] OPD [facility] C Family History Family history unknown: Yes Normal [facility] MRSA/MSSA DNA NASALon 2024 MRSA DNA Negative Normal Negative [facility] Comment on above: Order Comment: Testi ng methodology is an automated qualitative in vitro diagnostic test for the directdetection and differentiation of Staphylococcus aureus (SA) DNA and methicillin-resistant Staphylococcus aureus (MRSA) DNA from nasal swabs in patients at risk for nasal colonization. The test utilizes real-time polymerase chain reaction (PCR) for the amplification of MRSA/SA DNA and fluorogenic target-specific hybridization probes for the detection of the amplified DNA. A negative result does not preclude nasal colonization. Performed By: #### L [id number] #### [facility] ([facility]) [address] [place] [address] MSSA DNA Positive Abnormal Negative [facility] Comment on above: Order Comment: Testi ng methodology is an automated qualitative in vitro diagnostic test for the directdetection and differentiation of Staphylococcus aureus (SA) DNA and methicillin-resistant Staphylococcus aureus (MRSA) DNA from nasal swabs in patients at risk for nasal colonization. The test utilizes real-time polymerase chain reaction (PCR) for the amplification of MRSA/SA DNA and fluorogenic target-specific hybridization probes for the detection of the amplified DNA. A negative result does not preclude nasal colonization. Performed By: #### L [id number] #### [facility] ([facility]) [address] [place] [address] PROTIME-INRon 11-21-2024 INR IN PPP BY COAGULATION ASSAY 0.96 Normal 0.90-1.10 [facility] Comment on above: Result Comment: ACCC P RECOMMENDED INR FOR WARFARIN THERAPY CONDITION INR PROPHYLAXIS OF VENOUS THROMBOSIS 2-3 (HIGH-RISK SURGERY) TREATMENT OF VENOUS THROMBOSIS 2-3 TREATMENT OF PULMONARY EMBOLISM 2-3 PREVENTION OF SYSTEMIC EMBOLISM: 2-3 ACUTE MYOCARDIAL INFARCTION TISSUE HEART VALVES VALVULAR HEART DISEASE ATRIAL FIBRILLATION RECURRENT SYSTEMIC EMBOLISM MECHANICAL HEART VALVE 2.5-3.5 FROM: ORAL ANTICOAGULANTS. MECHANISM OF ACTION, CLINICAL EFFECTIVENESS, AND OPTIMAL THERAPEUTIC RANGE. CHEST 1995;108:231S-246S. Performed By: #### L [id number] #### [facility] ([employer]) [address] [place] [address] PROTHROMBIN TIME (PT) IN PPP BY COAGULATION ASSAY 12.8 Seconds Normal 12.3-14.8 [facility] Comment on above: Performed By: #### L [id number] #### [facility] ([facility]) [address] [place] [address] TYPE AND SCREENon 11-21-2024 AB SCREEN Positive Normal [facility] Comment on above: Performed By: #### L [id number] #### [facility] BLOOD BANK , ABO group Nom (Bld) O Normal [facility] Comment on above: Performed By: #### L [id number] #### [facility] BLOOD BANK , RH TYPE IN BLOOD Positive Normal [facility] Comment on above: Performed By: #### L [id number] #### [facility] BLOOD BANK , Albumin/Creat Ratio, Urineon 11-17-2024 Albumin,conc.[place] U 40 mg/L High 0-20 [facility] Comment on above: Performed By: #### U RNMAB #### [facility] [employer] [address] [place] [address] Belt Repairer: Aramis Hoffmann MD Albumin/Creat Ratio 10 mcg/mg creat Normal 0.0-25.0 [facility] Comment on above: Performed By: #### U RNMAB #### [address] [place], [place] [id number] Belt Repairer: Aramis Hoffmann MD Creatinine Conc. 419.0 mg/dL High 28.0-217.0 [facility] Comment on above: Result Comment: Refe rence range defined for 1st morning urine Performed By: #### U RNMAB #### [facility] [employer] [address] [place] [address] Belt Repairer: Aramis Hoffmann MD Albumin/Creatinine Ratio, Ur ineon 11-17-2024 Albumin DL <= 20 mg/L (U) [Mass/Vol] 40 mg/L High 0 - 20 mg/L [facility] Albumin/Creatinine DL <= 20 mg/L (U) [Ratio] 10 [facility] Creatinine (U) [Mass/Vol] 419 mg/dL High 28.0 - 217.0 mg/dL [facility] Comment on above: Reference range defi elena for 1st morning urine Interpretation and review of laboratory results Abnormal [facility] POC Glucose Randomon 0502-2 025 Glucose [Mass/Vol] 108 mg/dL High 70-99 [facility] Comment on above: Performed By: #### C [id number] #### [facility] [address] [place] [address] XR SHOULDER RIGHT (MIN 2 VIE WS)on 08-28-2024 XR SHOULDER RIGHT (MIN 2 VIEWS) EXAM: XR SHOULDER RIGHT (MIN 2 VIEWS) HISTORY: Pain, joint, shoulder, right. COMPARISON: None. IMPRESSION: FINDINGS/IMPRESSION: 1. Minimal degenerative narrowing acromioclavicular and glenohumeral joint, not unusual for age. 2. No acute or suspicious findings. 3. Negative for calcific bursitis. 4. Right upper chest negative. Interpreted by: Jairo Mcdonald Jr., MD Signed by: Jairo Mcdonald Jr., MD 08/28/24 Final result Normal [facility] XR Shoulder - right 2 Viewso n 08-28-2024 FINDINGS/IMPRESSION: 1. Minimal degenerative narrowing acromioclavicular and glenohumeral joint, not unusual for age. 2. No acute or suspicious findings. 3. Negative for calcific bursitis. 4. Right upper chest negative. [facility] EXAM: XR SHOULDER RIGHT (MIN 2 VIEWS) HISTORY: Pain, joint, shoulder, right. COMPARISON: None. [facility] Jairo Mcdonald Jr., MD - 08/28/2024 EXAM: XR SHOULDER RIGHT (MIN 2 VIEWS) HISTORY: Pain, joint, shoulder, right. COMPARISON: None. IMPRESSION: FINDINGS/IMPRESSION: 1. Minimal degenerative narrowing acromioclavicular and glenohumeral joint, not unusual for age. 2. No acute or suspicious findings. 3. Negative for calcific bursitis. 4. Right upper chest negative. [facility] Radiology Study observation (narrative) [facility] XR Shoulder - right 2 ViewsO rdered By: Jairo Mcdonald on 08-28-2024 [facility] Work Phone: XR KNEE LEFT (MIN 4 VIEWS)on 06-18-2024 XR KNEE LEFT (MIN 4 VIEWS) EXAM: XR KNEE LEFT (MIN 4 VIEWS) 06/18/2024 HISTORY: pain , no specific trauma/fall, Hx OA right knee COMPARISON: 09/25/2020 TECHNIQUE: Weightbearing AP view of bilateral knees, oblique view and lateral of the left knee and a sunrise view of left patella FINDINGS: There is advanced degenerative disease involving bilateral medial femoral tibial compartments with cglr-ji-aqqn articulation and subarticular sclerosis with prominent spurring. This results in a bilateral genu varum. There is also advanced degenerative disease of the left patellofemoral compartment with prominent spurring. No acute fracture is identified. No significant joint effusion is evident. IMPRESSION: Advanced degenerative disease of the medial femoral tibial compartment of the knee and patellofemoral compartment without an acute osseous abnormality demonstrated. Interpreted by: Billy Chavez MD Signed by: Billy Chavez MD 06/18/24 Final result Normal [facility] XR Knee - left 4 Viewson Advanced degenerative disease of the medial femoral tibial compartment of the knee and patellofemoral compartment without an acute osseous abnormality demonstrated. [facility] EXAM: XR KNEE LEFT (MIN 4 VIEWS) 06/18/2024 HISTORY: pain , no specific trauma/fall, Hx OA right knee COMPARISON: 09/25/2020 TECHNIQUE: Weightbearing AP view of bilateral knees, oblique view and lateral of the left knee and a sunrise view of left patella FINDINGS: There is advanced degenerative disease involving bilateral medial femoral tibial compartments with fhyc-hl-bcgk articulation and subarticular sclerosis with prominent spurring. This results in a bilateral genu varum. There is also advanced degenerative disease of the left patellofemoral compartment with prominent spurring. No acute fracture is identified. No significant joint effusion is evident. [facility] Billy Chavez MD - 06/18/2024 EXAM: XR KNEE LEFT (MIN 4 VIEWS) 06/18/2024 HISTORY: pain , no specific trauma/fall, Hx OA right knee COMPARISON: 09/25/2020 TECHNIQUE: Weightbearing AP view of bilateral knees, oblique view and lateral of the left knee and a sunrise view of left patella FINDINGS: There is advanced degenerative disease involving bilateral medial femoral tibial compartments with jlly-hc-nfsa articulation and subarticular sclerosis with prominent spurring. This results in a bilateral genu varum. There is also advanced degenerative disease of the left patellofemoral compartment with prominent spurring. No acute fracture is identified. No significant joint effusion is evident. IMPRESSION: Advanced degenerative disease of the medial femoral tibial compartment of the knee and patellofemoral compartment without an acute osseous abnormality demonstrated. [facility] Radiology Study observation (narrative) [facility] XR Knee - left 4 ViewsOrdere d By: Billy Chavez on 06-18-2024 [facility] Work Phone: XR HIP 2-3 VW W PELVIS RIGHT on 05-30-2024 XR HIP 2-3 VW W PELVIS RIGHT EXAM: XR HIP 2-3 VW W PELVIS RIGHT HISTORY: fall 05/24, continued right hip/trochanter area pain COMPARISON: None. IMPRESSION: FINDINGS/IMPRESSION: 1. 3 screw fusion left SI joint is intact, unchanged. 2. Mild symmetric degenerative change at the SI joints. 3. Minimal symmetric degenerative change the hips with well rounded femoral heads. 4. Prior laminectomy and fusion with bilateral fusion masses and pedicle screws L5-S1. 5. No right hip fracture, lytic or blastic lesion. Interpreted by: Jairo Mcdonald Jr., MD Signed by: Jairo Mcdonald Jr., MD 05/30/24 Final result Normal [facility] XR Pelvis and Hip - right 2 Viewson 05-30-2024 FINDINGS/IMPRESSION: 1. 3 screw fusion left SI joint is intact, unchanged. 2. Mild symmetric degenerative change at the SI joints. 3. Minimal symmetric degenerative change the hips with well rounded femoral heads. 4. Prior laminectomy and fusion with bilateral fusion masses and pedicle screws L5-S1. 5. No right hip fracture, lytic or blastic lesion. [facility] EXAM: XR HIP 2-3 VW W PELVIS RIGHT HISTORY: fall 05/24, continued right hip/trochanter area pain COMPARISON: None. [facility] Jairo Mcdonald Jr., MD - 05/30/2024 EXAM: XR HIP 2-3 VW W PELVIS RIGHT HISTORY: fall 05/24, continued right hip/trochanter area pain COMPARISON: None. IMPRESSION: FINDINGS/IMPRESSION: 1. 3 screw fusion left SI joint is intact, unchanged. 2. Mild symmetric degenerative change at the SI joints. 3. Minimal symmetric degenerative change the hips with well rounded femoral heads. 4. Prior laminectomy and fusion with bilateral fusion masses and pedicle screws L5-S1. 5. No right hip fracture, lytic or blastic lesion. [facility] Radiology Study observation (narrative) [facility] XR Pelvis and Hip - right 2 ViewsOrdered By: Jairo Mcdonald on 05-30-2024 [facility] Work Phone: [facility] DIGITAL SCREEN AMBROCIO Andersen 03-20-2024 [facility] DIGITAL SCREEN BILATERAL EXAMINATION: SCREENING DIGITAL [...] to the patient regarding the results. [employer] recommends annual mammograms for women 40 years and older. Performing Facility: [place] [id number] Interpreted by: Carlitos Brown DO Signed by: Carlitos Brown DO 03/20/24 Final result Normal [facility] Follow-Upon 02-14-2024 Follow-Up [id number] Sarah Harris 1975 F Date Provider Department Center 02/14/2024 JORDAN LYNN [facility] Family History Family history unknown: Yes Level of Service:51056 HI OFFICE/OUTPATIENT ESTABLISHED MOD MDM 30 MIN () Reason for Visit and Comments: Follow-up [205592] - surgical evaluation - bone on bone, when she walks feels like her knees are crunching. Pain [136] - surgical evaluation - bone on bone, when she walks feels like her knees are crunching. New Patient [632] - surgical evaluation - bone on bone, when she walks feels like her knees are crunching. Normal [facility] Comp Metabolic Profon 2023 Albumin [Mass/Vol] 3.9 g/dL Normal 3.5-5.2 [facility] Comment on above: Performed By: #### G LYHGB, LIPR #### [facility] [employer] [address] [place] [address] Belt Repairer: Aramis Hoffmann MD #### CP #### [facility] [address] [place] [address] Belt Repairer: Glenn Flores MD Alkaline Phos 107 U/L High 35-104 [facility] Comment on above: Performed By: #### G LYHGB, LIPR #### [facility] [address] [place] [address] Belt Repairer: Aramis Hoffmann MD #### CP #### [facility] [address] [place] [address] Belt Repairer: Glenn Flores MD ALT [Catalytic activity/Vol] 15 U/L Normal 5-33 [facility] Comment on above: Performed By: #### G LYHGB, LIPR #### [facility] [address] [place] [address] Belt Repairer: Aramis Hoffmann MD #### CP #### [facility] [address] [place], [place] [id number] Belt Repairer: Glenn Flores MD Anion gap [Moles/Vol] 15 mmol/L Normal 9-[address] [facility] Comment on above: Performed By: #### G LYHGB, LIPR #### [facility] [address] [place] [address] Belt Repairer: Aramis Hoffmann MD #### CP #### [facility] [address] [place] [address] Belt Repairer: Glenn Flores MD AST [Catalytic activity/Vol] 17 U/L Normal <32 [facility] Comment on above: Performed By: #### G LYHGB, LIPR #### [facility] [address] [place] [address] Belt Repairer: Aramis Hoffmann MD #### CP #### [facility] [address] [place] [address] Belt Repairer: Glenn Flores MD Bilirubin [Mass/Vol] 0.3 mg/dL Normal 0.3-1.2 [facility] Comment on above: Performed By: #### G LYHGB, LIPR #### [facility] [address] [place] [address] Belt Repairer: Aramis Hoffmann MD #### CP #### [facility] [address] [place] [address] Belt Repairer: Glenn Flores MD BUN/CRE Ratio 10 Normal 9-20 [facility] Comment on above: Performed By: #### G LYHGB, LIPR #### [facility] [address] [place] [address] Belt Repairer: Aramis Hoffmann MD #### CP #### [facility] [address] [place] [address] Belt Repairer: Glenn Flores MD Calcium [Mass/Vol] 9.7 mg/dL Normal 8.6-10.4 [facility] Comment on above: Performed By: #### Usha LYHGB, LIPR #### [facility] [address] [place] [address] Belt Repairer: Aramis Hoffmann MD #### CP #### [facility] [address] [place] [address] Belt Repairer: Glenn Flores MD Chloride [Moles/Vol] 97 mmol/L Low 98-107 [facility] Comment on above: Performed By: #### Usha LYHGB, LIPR #### [facility] [address] [place] [address] Belt Repairer: Aramis Hfofmann MD #### CP #### [facility] [address] [place] [address] Belt Repairer: Glenn Flores MD CO2 [Moles/Vol] 23 mmol/L Normal 20-31 [facility] Comment on above: Performed By: #### G LYHGB, LIPR #### [address] [address] Belt Repairer: Aramis Hoffmann MD #### CP #### [facility] [address] [place], [place] [id number] Belt Repairer: Glenn Flores MD Creatinine [Mass/Vol] 0.9 mg/dL Normal 0.5-0.[address] [facility] Comment on above: Performed By: #### G LYHGB, LIPR #### [address] [address] Belt Repairer: Aramis Hoffmann MD #### CP #### [facility] [address] [facility] [place], [place] [id number] Belt Repairer: Glenn Flores MD GFR/1.73 sq M.predicted among non-blacks MDRD (S/P/Bld) [Vol rate/Area] 79 mL/min/{1.73_m2} Normal >60 [facility] Comment on above: Result Comment: [...] affects renal tubular secretion. Performed By: #### G LYHGB, LIPR #### [address] [address] Belt Repairer: Aramis Hoffmann MD #### CP #### [facility] [address] [place], [place] [id number] Belt Repairer: Glenn Flores MD Glucose [Mass/Vol] 111 mg/dL High 70-99 [facility] Comment on above: Performed By: #### G LYHGB, LIPR #### [address] [address] Belt Repairer: Aramis Hoffmann MD #### CP #### [facility] [address] [place], [place] [id number] Belt Repairer: Glenn Flores MD Potassium [Moles/Vol] 4.1 mmol/L Normal 3.7-5.[address] [facility] Comment on above: Performed By: #### G LYHGB, LIPR #### [address] [id number] Belt Repairer: Aramis Hoffmann MD #### CP #### [facility] [address] [place] [address] Belt Repairer: Glenn Flores MD Protein [Mass/Vol] 7.6 g/dL Normal 6.4-8.3 [facility] Comment on above: Performed By: #### G LYHGB, LIPR #### [address] [id number] Belt Repairer: Aramis Hoffmann MD #### CP #### [facility] [address] [place], [place] [id number] Belt Repairer: Glenn Flores MD Sodium [Moles/Vol] 135 mmol/L Normal 135-144 [facility] Comment on above: Performed By: #### G LYHGB, LIPR #### [address] [id number] Belt Repairer: Aramis Hoffmann MD #### CP #### [facility] [address] [place] [address] Belt Repairer: Glenn Flores MD Urea nitrogen [Mass/Vol] 9 mg/dL Normal 6-20 [facility] Comment on above: Performed By: #### G LYHGB, LIPR #### [address] [address] Belt Repairer: Aramis Hoffmann MD #### CP #### [facility] [address] [place], [place] [id number] Belt Repairer: Glenn Flores MD Hemoglobin A1Con 02-02-2024 Glucose [Mass/Vol] 143 mg/dL Normal [facility] Comment on above: Result Comment: The ADA and AACC recommend providing the estimated average glucose result to permit better patient understanding of their HBA1c result. Performed By: #### G LYHGB, LIPR #### [address] [id number] Belt Repairer: Aramis Hoffmann MD #### CP #### [facility] [address] [place], [place] [id number] Belt Repairer: Glenn Flores MD HbA1c (Bld) [Mass fraction] 6.6 % High 4.0-6.0 [facility] Comment on above: Performed By: #### G LYHGB, LIPR #### [address] [id number] Belt Repairer: Aramis Hoffmann MD #### CP #### [facility] [address] [place], [place] [id number] Belt Repairer: Glenn Flores MD Lipid Profileon 02-02-2024 Cholesterol [Mass/Vol] 165 mg/dL Normal 0-199 [facility] Comment on above: Result Comment: Cholesterol Guidelines: <200 Desirable 200-240 Borderline >240 Undesirable Performed By: #### G LYHGB, LIPR #### [address] [address] Belt Repairer: Aramis Hoffmann MD #### CP #### [facility] [address] [place], [place] [id number] Belt Repairer: Glenn Flores MD Cholesterol in HDL [Mass/Vol] 40 mg/dL Low >40 [facility] Comment on above: Result Comment: HDL Guidelines: <40 Undesirable 40-59 Borderline >59 Desirable Performed By: #### G LYHGB, LIPR #### [address] [place] [address] Belt Repairer: Aramis Hoffmann MD #### CP #### [facility] [address] [place] [address] Belt Repairer: Glenn Flores MD Cholesterol in LDL [Mass/Vol] 85 mg/dL Normal 0-100 [facility] Comment on above: Result Comment: LDL Guidelines: <100 Desirable 100-129 Near to/above Desirable 130-159 Borderline >159 Undesirable Direct (measured) LDL and calculated LDL are not interchangeable tests. Performed By: #### G LYHGB, LIPR #### [address] [address] Belt Repairer: Aramis Hoffmann MD #### CP #### [facility] [address] [place], [place] [phone] Belt Repairer: Glenn Flores MD Cholesterol in VLDL [Mass/Vol] 40 mg/dL Normal [facility] Comment on above: Performed By: #### G LYHGB, LIPR #### [address] [address] Belt Repairer: Aramis Hoffmann MD #### CP #### [facility] [address] [place] [address] Belt Repairer: Glenn Flores MD Cholesterol.total/Chol esterol in HDL [Mass ratio] 4.0 {ratio} Normal [facility] Comment on above: Performed By: #### G LYHGB, LIPR #### [address] [address] Belt Repairer: Aramis Hoffmann MD #### CP #### [facility] [address] [place] [address] Belt Repairer: Glenn Flores MD Triglyceride [Mass/Vol] 202 mg/dL High <150 [facility] Comment on above: Result Comment: Triglyceride Guidelines: <150 Desirable 150-199 Borderline 200-499 High >499 Very high Based on AHA Guidelines for fasting triglyceride, February 2012. Performed By: #### G LYHGB, LIPR #### [facility] [address] [place] [address] Belt Repairer: Aramis Hoffmann MD #### CP #### [facility] [address] [place] [address] Belt Repairer: Glenn Flores MD XR KNEE RIGHT (3 VIEWS)on XR KNEE [...] Glenn Mendez MD 12/24/23 Final result Normal [facility] XR Knee - right 3 Viewson 1. No acute fracture or dislocation. 2. Severe tricompartmental osteoarthritis. [facility] CONSOL[facility] EXAMINATION: THREE XRAY VIEWS OF THE RIGHT KNEE 12/24/2023 10:47 am COMPARISON: None. HISTORY: ORDERING SYSTEM PROVIDED HISTORY: injury TECHNOLOGIST PROVIDED HISTORY: injury FINDINGS: No acute fracture or dislocation is identified. Severe tricompartmental osteoarthritis. No joint effusion or erosion is present. [facility] CONSOL[facility] Glenn Mendez MD - 12/24/2023 EXAMINATION: THREE XRAY VIEWS OF THE RIGHT KNEE 12/24/2023 10:47 am COMPARISON: None. HISTORY: ORDERING SYSTEM PROVIDED HISTORY: injury TECHNOLOGIST PROVIDED HISTORY: injury FINDINGS: No acute fracture or dislocation is identified. Severe tricompartmental osteoarthritis. No joint effusion or erosion is present. IMPRESSION: 1. No acute fracture or dislocation. 2. Severe tricompartmental osteoarthritis. [facility] Radiology Study observation (narrative) [facility] XR Knee - right 3 ViewsOrder ed By: Glenn Mendez on 12-24-2023 [facility] [employer] Work Phone: ANION GAPon 10-22-2023 Anion gap [Moles/Vol] 8.0 mmol/L Normal 8.0-16.0 [facility] Comment on above: Result Comment: ANIO N GAP = Sodium -(Chloride + CO2) Performed By: #### H H, BMP, ANION, EGFR1 #### [facility] [address] [place] [address] BASIC METABOL PANELon 2023 Calcium [Mass/Vol] 8.5 mg/dL Normal 8.5-10.5 [facility] Comment on above: Performed By: #### H H, BMP, ANION, EGFR1 #### [facility] [address] [place] [address] Chloride [Moles/Vol] 100 mmol/L Normal 98-111 [facility] Comment on above: Performed By: #### H H, BMP, ANION, EGFR1 #### [facility] [address] [place] [address] CO2 [Moles/Vol] 31 mmol/L Normal 23-33 [facility] Comment on above: Performed By: #### H H, BMP, ANION, EGFR1 #### [facility] [address] [place] [address] Creatinine [Mass/Vol] 0.6 mg/dL Normal 0.4-1.2 [facility] Comment on above: Performed By: #### H H, BMP, ANION, EGFR1 #### [facility] [address] [place] [address] Glucose [Mass/Vol] 110 mg/dL High 70-108 [facility] Comment on above: Performed By: #### H H, BMP, ANION, EGFR1 #### [facility] [address] [place] [address] Potassium [Moles/Vol] 4.3 mmol/L Normal 3.5-5.2 [facility] Comment on above: Performed By: #### H H, BMP, ANION, EGFR1 #### [facility] [address] [place] [address] Sodium [Moles/Vol] 139 mmol/L Normal 135-145 [facility] Comment on above: Performed By: #### H H, BMP, ANION, EGFR1 #### [address] [address] Urea nitrogen [Mass/Vol] 8 mg/dL Normal 7-22 [facility] Comment on above: Performed By: #### H H, BMP, ANION, EGFR1 #### [address] [address] GFR, ESTIMATEDon 10-22-2023 GFR/1.73 sq M.predicted MDRD (S/P/Bld) [Vol rate/Area] mL/min/{1.73_m2} Normal >60 [facility] Comment on above: Result Comment: Gallito atric [...] #### H H, BMP, ANION, EGFR1 #### [address] [address] GLUCOSE POCon 10-22-2023 Glucose [Mass/Vol] 114 mg/dL High 70-108 [facility] Comment on above: Performed By: #### P OCGL #### [facility] [address] [place] [address] Glucose [Mass/Vol] 107 mg/dL Normal 70-108 [facility] Comment on above: Performed By: #### P OCGL #### [facility] [address] [place] [address] HGB,HCTon 10-22-2023 Hematocrit (Bld) [Volume fraction] 33.7 % Low 37.0-47.0 [facility] Comment on above: Performed By: #### H H, BMP, ANION, EGFR1 #### [facility] [address] [place] [address] Hemoglobin (Bld) [Mass/Vol] 10.1 g/dL Low 12.0-16.0 [facility] Comment on above: Performed By: #### H H, BMP, ANION, EGFR1 #### [address] [address] LEUKO-REDUCED RCon 4 -1 LEUKOREDUCED RED CELLS [id number] released Normal [facility] Comment on above: Performed By: #### P OCGL #### [address] [address] LEUKO-REDUCED RED CELLS BAG 1 [id number] released [facility] Comment on above: Performed By: #### P OCGL #### [address] [address] ANION GAPon 10-21-2023 Anion gap [Moles/Vol] 6.0 mmol/L Low 8.0-16.0 [facility] Comment on above: Result Comment: ANIO N GAP = Sodium -(Chloride + CO2) Performed By: #### M RSP #### [address] [address] BASIC METABOL PANELon 2023 Calcium [Mass/Vol] 8.2 mg/dL Low 8.5-10.5 [facility] Comment on above: Performed By: #### M RSP #### [employer] [address] [address] Chloride [Moles/Vol] 103 mmol/L Normal 98-111 [facility] Comment on above: Performed By: #### M RSP #### [facility] [address] [place] [address] CO2 [Moles/Vol] 28 mmol/L Normal 23-33 [facility] Comment on above: Performed By: #### M RSP #### [facility] [address] [place] [address] Creatinine [Mass/Vol] 0.6 mg/dL Normal 0.4-1.2 [facility] Comment on above: Performed By: #### M RSP #### [facility] [address] [place] [address] Glucose [Mass/Vol] 121 mg/dL High 70-108 [facility] Comment on above: Performed By: #### M RSP #### [facility] [address] [place] [address] Potassium [Moles/Vol] 4.2 mmol/L Normal 3.5-5.2 [facility] Comment on above: Performed By: #### M RSP #### [facility] [address] [place] [address] Sodium [Moles/Vol] 137 mmol/L Normal 135-145 [facility] Comment on above: Performed By: #### M RSP #### [facility] [address] [place] [address] Urea nitrogen [Mass/Vol] 9 mg/dL Normal 7-22 [facility] Comment on above: Performed By: #### M RSP #### [address] [address] GFR, ESTIMATEDon 10-21-2023 GFR/1.73 sq M.predicted MDRD (S/P/Bld) [Vol rate/Area] mL/min/{1.73_m2} Normal >60 [facility] Comment on above: Result Comment: Gallito atric [...] secretion. Performed By: #### M RSP #### [facility] [address] [place] [address] GLUCOSE POCon 10-21-2023 Glucose [Mass/Vol] 148 mg/dL High 70-108 [facility] Comment on above: Performed By: #### M RSP #### [facility] [address] [place] [address] Glucose [Mass/Vol] 145 mg/dL High 70-108 [facility] Comment on above: Performed By: #### P OCGL #### [facility] [address] [place] [address] Glucose [Mass/Vol] 103 mg/dL Normal 70-108 [facility] Comment on above: Performed By: #### P OCGL #### [facility] [address] [place] [address] Glucose [Mass/Vol] 117 mg/dL High 70-108 [facility] Comment on above: Performed By: #### P OCGL #### [address] [address] HGB,HCTon 10-21-2023 Hematocrit (Bld) [Volume fraction] 33.5 % Low 37.0-47.0 [facility] Comment on above: Performed By: #### M RSP #### [address] [address] Hemoglobin (Bld) [Mass/Vol] 9.8 g/dL Low 12.0-16.0 [facility] Comment on above: Performed By: #### M RSP #### [address] [address] ANION GAPon 10-20-2023 Anion gap [Moles/Vol] 11.0 mmol/L Normal 8.0-16.[address] [facility] Comment on above: Result Comment: ANIO N GAP = Sodium -(Chloride + CO2) Performed By: #### P OCGL #### [facility] [employer] [address] [address] BASIC METABOL PANELon 2023 Calcium [Mass/Vol] 7.9 mg/dL Low 8.5-10.5 [facility] Comment on above: Performed By: #### P OCGL #### [facility] [employer] [address] [address] Chloride [Moles/Vol] 101 mmol/L Normal 98-111 [facility] Comment on above: Performed By: #### P OCGL #### [facility] [address] [place] [address] CO2 [Moles/Vol] 26 mmol/L Normal 23-33 [facility] Comment on above: Performed By: #### P OCGL #### [facility] [address] [place] [address] Creatinine [Mass/Vol] 0.7 mg/dL Normal 0.4-1.2 [facility] Comment on above: Performed By: #### P OCGL #### [facility] [address] [place] [address] Glucose [Mass/Vol] 176 mg/dL High 70-108 [facility] Comment on above: Performed By: #### P OCGL #### [address] [address] Potassium [Moles/Vol] 4.2 mmol/L Normal 3.5-5.2 [facility] Comment on above: Result Comment: Low level specimen hemolysis is present as indicated by the interference level index on the Mallorie analyzer. The reported K+ level may be falsely increased. If clinically warranted, recollection of the specimen is suggested. Performed By: #### P OCGL #### [address] [address] Sodium [Moles/Vol] 138 mmol/L Normal 135-145 [facility] Comment on above: Performed By: #### P OCGL #### [address] [address] Urea nitrogen [Mass/Vol] 7 mg/dL Normal 7-22 [facility] Comment on above: Performed By: #### P OCGL #### [address] [address] GFR, ESTIMATEDon 10-20-2023 GFR/1.73 sq M.predicted MDRD (S/P/Bld) [Vol rate/Area] mL/min/{1.73_m2} Normal >60 [facility] Comment on above: Result Comment: Pedi atric calculator link https://www.kidney.org/professionals/kdoqi/gfr_calculatorped Effective Mar 02, [...] secretion. Performed By: #### P OCGL #### [address] [address] GLUCOSE POCon 10-20-2023 Glucose [Mass/Vol] 153 mg/dL High [address] [facility] Comment on above: Performed By: #### P OCGL #### [address] [address] Glucose [Mass/Vol] 115 mg/dL High [address] [facility] Comment on above: Performed By: #### P OCGL #### [address] [address] Glucose [Mass/Vol] 117 mg/dL High [address] [facility] Comment on above: Performed By: #### P OCGL #### [address] [address] Glucose [Mass/Vol] 169 mg/dL High [address] [place] [address] Comment on above: Performed By: #### M RSP #### [address] [address] HGB,HCTon 10-20-2023 Hematocrit (Bld) [Volume fraction] 36.8 % Low 37.0-47.0 [facility] Comment on above: Performed By: #### P OCGL #### [address] [address] Hemoglobin (Bld) [Mass/Vol] 11.1 g/dL Low 12.0-16.0 [facility] Comment on above: Performed By: #### P OCGL #### [address] [address] ANTIBODY IDENTIFICATIONon ANTIBODY IDENTIFICATION POS, ANTI-Fya (Rahman) Normal [facility] Comment on above: Performed By: #### P OCGL #### [facility] [address] [place] [address] FLUORO FOR SURGICAL PROCEDUR ESon 10-19-2023 FLUORO FOR SURGICAL PROCEDURES Radiology exam is complete. No Radiologist dictation. Please follow up with ordering provider. Normal [facility] FYA ANTIGENon 10-19-2023 FYA ANTIGEN Negative Normal [facility] Comment on above: Result Comment: Prev iously: POS 10/19/23 11:48 Performed By: #### P OCGL #### [facility] [address] [place] [address] GLUCOSE POCon 10-19-2023 Glucose [Mass/Vol] 262 mg/dL High [address] [facility] Comment on above: Performed By: #### P OCGL #### [facility] [address] [place] [address] Glucose [Mass/Vol] 169 mg/dL High 70-108 [facility] Comment on above: Performed By: #### P OCGL #### [facility] [address] [place] [address] Glucose [Mass/Vol] 126 mg/dL [facility] 70-108 [facility] Comment on above: Performed By: #### M RSP #### [employer] [address] [address] TYPE AND SCREEN CAPTUREon INDIRECT CONNER CAPTURE Positive [facility] Comment on above: Performed By: #### P OCGL #### [facility] [address] [place] [address] ABO CAPTURE O Normal [facility] Comment on above: Performed By: #### P OCGL #### [facility] [address] [place] [address] RH CAPTURE (2 D CLONES) Positive [facility] Comment on above: Performed By: #### P OCGL #### [facility] [address] [place] [address] ANION GAPon 10-01-2023 Anion gap [Moles/Vol] 16.0 mmol/L Normal 8.0-16.[address] [facility] Comment on above: Result Comment: ANIO N GAP = Sodium -(Chloride + CO2) Performed By: #### P OCGL #### [facility] [address] [place] [address] APTTon 10-01-2023 aPTT Coag (Bld) [Time] 34.5 s Normal 22.0-38.[address] [facility] Comment on above: Result Comment: Ther apeutic Heparin Reference Range= 60-95 seconds (corresponds to 0.3 to 0.7 u/mL Anti-Xa factor activity) Performed By: #### P OCGL #### [facility] [address] [place] [address] BASIC METABOL PANELon 2023 Calcium [Mass/Vol] 9.4 mg/dL Normal 8.5-10.5 [facility] Comment on above: Performed By: #### P OCGL #### [facility] [address] [place] [address] Chloride [Moles/Vol] 100 mmol/L Normal 98-111 [facility] Comment on above: Performed By: #### P OCGL #### [facility] [address] [place] [address] CO2 [Moles/Vol] 24 mmol/L Normal 23-33 [facility] Comment on above: Performed By: #### P OCGL #### [facility] [address] [place] [address] Creatinine [Mass/Vol] 0.8 mg/dL Normal 0.4-1.2 [facility] Comment on above: Performed By: #### P OCGL #### [facility] [address] [place] [address] Glucose [Mass/Vol] 133 mg/dL High 70-108 [facility] Comment on above: Performed By: #### P OCGL #### [facility] [address] [place] [address] Potassium [Moles/Vol] 4.8 mmol/L Normal 3.5-5.2 [facility] Comment on above: Performed By: #### P OCGL #### [address] [address] Sodium [Moles/Vol] 140 mmol/L Normal 135-145 [facility] Comment on above: Performed By: #### P OCGL #### [address] [address] Urea nitrogen [Mass/Vol] 12 mg/dL Normal 7-22 [facility] Comment on above: Performed By: #### P OCGL #### [address] [address] CBC NO DIFFERENTIALon 2023 Erythrocyte distribution width (RBC) [Ratio] 15.3 % High 11.5-14.5 [facility] Comment on above: Performed By: #### P OCGL #### [place] [id number] Hematocrit (Bld) [Volume fraction] 43.3 % Normal 37.0-47.0 [facility] Comment on above: Performed By: #### P OCGL #### [address] [address] Hemoglobin (Bld) [Mass/Vol] 13.3 g/dL Normal 12.0-16.0 [facility] Comment on above: Performed By: #### P OCGL #### [address] [address] MCH (RBC) [Entitic mass] 26.3 pg Normal 26.0-33.0 [facility] Comment on above: Performed By: #### P OCGL #### [address] [address] MCHC (RBC) [Mass/Vol] 30.7 g/dL Low 32.2-35.5 [facility] Comment on above: Performed By: #### P OCGL #### [address] [address] MCV (RBC) [Entitic vol] 85.6 fL Normal 81.0-99.0 [facility] Comment on above: Performed By: #### P OCGL #### [address] [address] PLATELET 309 thou/mm3 Normal 130-400 [facility] Comment on above: Performed By: #### P OCGL #### [facility] [address] [address] Platelet mean volume (Bld) [Entitic vol] 10.1 fL Normal 9.4-12.4 [facility] Comment on above: Performed By: #### P OCGL #### [address] [address] RBC 5.06 mill/mm3 Normal 4.20-5.40 [facility] Comment on above: Performed By: #### P OCGL #### [address] [address] RDW-SD 47.3 fL High 35.0-45.0 [facility] Comment on above: Performed By: #### P OCGL #### [address] [address] WBC 13.5 thou/mm3 High 4.8-10.8 [facility] Comment on above: Performed By: #### P OCGL #### [address] [address] GFR, ESTIMATEDon 10-01-2023 GFR/1.73 sq M.predicted MDRD (S/P/Bld) [Vol rate/Area] mL/min/{1.73_m2} Normal >60 [facility] Comment on above: Result Comment: Gerardoi atric calculator link https://www.kidney.org/professionals/kdoqi/gfr_calculatorped Effective Mar 02, [...] secretion. Performed By: #### P OCGL #### [address] [address] HEMOGLOBIN A1Con 10-01-2023 Glucose [Mass/Vol] 135 mg/dL High 70-126 [facility] Comment on above: Performed By: #### P OCGL #### [address] [address] HbA1c (Bld) [Mass fraction] 6.5 % High 4.4-6.4 [facility] Comment on above: Performed By: #### P OCGL #### [address] [address] MRSA BY PCRon 10-01-2023 MRSA SCREEN RT-PCR Negative Normal [facility] Comment on above: Result Comment: No M RSA detected by Real Time - Polymerase Chain Reaction. Specimen Source: Nares Performed By: #### M RSP #### [address] [address] PROTHOMBIN TIMEon 10-01-2023 INR Coag (Bld) [Relative time] 0.98 {INR} Normal 0.85-1.13 [facility] Comment on above: Result Comment: ---- -----INDICATION INR Reference Range DVT, PE, AF, AMI, tissue heart valve 2.0 to 3.0 Mechanical prosthetic valves 2.5 to 3.5 Performed By: #### P OCGL #### [address] [address] MR Lumbar spine WO contrasto n 08-10-2023 IMPRESSION: Very minimal degenerative changes [...] included paraspinal soft tissues are unremarkable. RADIOLOGY Lcuiano Alonso, DO - 08/10/2023 EXAM: MRI SPINE [...] on the left at the sacroiliac joint. [facility] Radiology Study observation (narrative) [facility] MR Lumbar spine WO contrastO rdered By: Luciano Alonso on 08-10-[address] [facility] [employer] Work Phone: MR Pelvis WO contraston 07-29 [...] present, with superficial chondromalacia. No osseous erosions. [facility] Radiology Study observation (narrative) [facility] MR Pelvis WO contrastOrdered By: Johnathan Pham on 08-10-2023 [facility] Work Phone: MRI PELVIS WITHOUT CONTRASTo n [...] with superficial chondromalacia. No osseous erosions. Normal [facility] MRI SPINE LUMBAR WITHOUT CON [...] the left at the sacroiliac joint. Normal [facility] LARGE JOINT/BURSA INJECTION AND/OR ASPIRATIONon 08-02-2023 Papa Ibarrakellen 08/02/2023 12:24 PM LARGE JOINT/BURSA INJECTION AND/OR [...] fashion. The patient was prepped with Chloraprep. [facility] Radiology Study observation (narrative) [facility] US Unspecified body regionon 08-02-2023 Image Storage This order is to facilitate the storage of the image. [facility] GLUCOSE (POC DEVICE)on 07-02 GLUCOSE, POINT OF CARE [address] [facility] Interpretation and review of laboratory results Abnormal [facility] Operator [id number] [facility] POCT GLUCOSEon 07-02-2023 Glucose [Mass/Vol] 127 mg/dL High 70-100 [facility] GLASS FURNACE TENDER [id number] Normal [facility] XR Spine lumbosacral junctio n [...] or subluxation. Left-sided sacroiliac fixation. Intact screws. [facility] Radiology Study observation (narrative) [facility] XR Spine lumbosacral junctio n ViewsOrdered By: Omero Hernandez on 03-01-[address] [facility] [employer] Work Phone: GLUCOSE (POC DEVICE)on 02-11 GLUCOSE, POINT OF CARE [address] [facility] Interpretation and review of laboratory results Abnormal [facility] Asbestos Shingle Inspector [id number] [facility] LARGE JOINT/BURSA INJECTION AND/OR ASPIRATIONon 01-09-2023 Radiology Study observation (narrative) [facility] XR Lumbar spine Views W righ [...] degenerative changes and disc disease as above. [facility] Radiology Study observation (narrative) [facility] XR Lumbar spine Views W righ t bending and W left bendingOrdered By: Omero Hernandez on 01-08-2023 [facility]centsCopsForHire Work Phone: LARGE JOINT/BURSA INJECTION AND/OR ASPIRATIONon 12-15-2022 Papa [...] fashion. The patient was prepped with Chloraprep. [facility] US Unspecified body regionon 12-15-2022 Image Storage This order is to facilitate the storage of the image. [facility] LARGE JOINT/BURSA INJECTION AND/OR ASPIRATION: L greater trochanteric bursaon 11-18-2022 Radiology Study observation (narrative) [facility] LARGE JOINT/BURSA INJECTION AND/OR ASPIRATION: L greater trochanteric bursaon 10-23-2022 Papa Prater 11/18/2022 11:07 AM LARGE JOINT/BURSA INJECTION AND/OR [...] fashion. The patient was prepped with alcohol. [facility] CBC with Auto Differentialon 09-23-2022 Absolute Eos # 0.34 [place] [facility] Absolute Immature Granulocyte 0.05 [facility] Absolute Lymph # 1.70 [facility] Absolute [place] # 0.77 [facility] RS [facility] Basophils (Bld) [#/Vol] 0.05 10*3/uL [facility] Basophils/100 WBC (Bld) 1 % 0 - 2 % [facility] Eosinophils/100 WBC (Bld) 4 % 1 - 4 % [facility] Hematocrit (Bld) [Volume fraction] 39.1 % 36.3 - 47.1 % [facility] Hemoglobin (Bld) [Mass/Vol] 11.9 g/dL 11.9 - 15.1 g/dL [facility] Immature granulocytes/100 WBC (Bld) 1 % High 0 [facility] Interpretation and review of laboratory results Abnormal [facility] Lymphocytes/100 WBC (Bld) 21 % Low 24 - 43 % [facility] MCH (RBC) [Entitic mass] 26.6 pg 25.2 - 33.5 pg [facility] MCHC (RBC) [Mass/Vol] 30.4 g/dL 28.4 - 34.8 g/dL [facility] MCV (RBC) [Entitic vol] 87.3 fL 82.6 - 102.9 fL [facility] Monocytes/100 WBC (Bld) 9 % 3 - 12 % [facility] NRBC Automated 0.0 0.0 per 100 WBC [facility] Platelet distribution width (Bld) [Ratio] 14.6 % High 11.8 - 14.4 % [facility] Platelet mean volume (Bld) [Entitic vol] 9.7 fL 8.1 - 13.5 fL [facility] Platelets (Bld) [#/Vol] 248 10*3/uL [facility] RBC (Bld) [#/Vol] 4.48 10*6/uL 3.95 - 5.1 1 m/uL [facility] Segmented neutrophils/100 WBC (Bld) 64 % 36 - 65 % [facility] Segs Absolute 5.32 [facility] WBC (Bld) [#/Vol] 8.2 10*3/uL [facility] CMPon 09-23-2022 Albumin [Mass/Vol] 3.3 g/dL Low 3.5 - 5.2 g/dL [facility] Albumin/Globulin [Mass ratio] 0.9 {ratio} Low 1.0 - 2.5 [facility] ALP [Catalytic activity/Vol] 78 U/L 35 - 104 U/L [facility] ALT [Catalytic activity/Vol] 14 U/L 5 - 33 U/L [facility] Anion gap [Moles/Vol] 10 mmol/L 9 - 17 mmol/L [facility] AST [Catalytic activity/Vol] 14 U/L NINF - 32 U/L [facility] Bilirubin [Mass/Vol] 0.2 mg/dL Low 0.3 - 1 .2 mg/dL [facility] Calcium [Mass/Vol] 8.9 mg/dL 8.6 - 10. 4 mg/dL [facility] Chloride [Moles/Vol] 99 mmol/L 98 - 10 7 mmol/L [facility] CO2 [Moles/Vol] 28 mmol/L 20 - 31 mmol/L [facility] Creatinine [Mass/Vol] 0.87 mg/dL 0.50 - 0.90 mg/dL [facility] GFR/1.73 sq M.predicted MDRD (S/P/Bld) [Vol rate/Area] - PINF [facility]ree[facility] Comment on above: These results are not [...] 190 mg/dL High 70 - 99 mg/dL [facility] Interpretation and review of laboratory results Abnormal [facility] Potassium [Moles/Vol] 4.2 mmol/L 3.7 - 5.3 mmol/L [facility] Protein [Mass/Vol] 6.8 g/dL 6.4 - 8.3 g/dL [facility] Sodium [Moles/Vol] 137 mmol/L 135 - 144 mmol/L [facility] Urea nitrogen [Mass/Vol] 11 mg/dL 6 - 20 mg/dL [facility] [employer] Urea nitrogen/Creatinine (Bld) [Mass ratio] 13 9 - [address] [address] [address] ABDOMEN PELVIS W IV CONTR AST [...] acute or suspicious bony abnormalities are detected. [facility] Berny Shah M D - 09/23/2022 [...] fat stranding. No evidence of abscess formation. [employer] Work Phone: Radiology Study observation (narrative) [facility] [employer] Work Phone: CT ABDOMEN PELVIS W IV CONTR AST Additional Contrast? NoneOrdered By: Berny Shah on 09-23-2022 [facility] Work Phone: Lactic Acidon 09-23-2022 Lactate (P zaire) [Moles/Vol] 1.4 mmol/L 0.5 - 2.2 mmol/L [facility] Lipaseon 09-23-2022 Lipase [Catalytic activity/Vol] 24 U/L 13 - 60 U/L [facility] Microscopic Urinalysison Epithelial Cells UA 2 TO 5 [facility] Pinterest RBC clumps Auto (Urine sed) [#/Area] None [facility] [employer] Renal Epithelial, UA 0 TO 2 0 /HPF [facility] WBC, UA 0 TO 2 [facility] No Panel Informationon 09-23 [facility] Urinalysis with Reflex to Cu ltureon 09-23-2022 Bilirubin Urine SMALL Abnormal NEGATIVE [facility] Color, UA Yellow Yellow [facility] Glucose Auto test strip (U) [Mass/Vol] Negative NEGATIVE [facility] Interpretation and review of laboratory results Abnormal [facility] Ketones (U) [Mass/Vol] Negative NEGATIVE [facility] Leukocyte esterase Auto test strip Ql (U) Negative NEGATIVE [facility] Nitrite Auto test strip Ql (U) Negative NEGATIVE [facility] Protein (U) [Mass/Vol] 6.0 mg/dL 5.0 - 9.0 [facility] Protein (U) [Mass/Vol] 1+ Abnormal NEGATIVE [facility] Specific [place], UA High 1.010 - 1.020 [facility] Turbidity UA Clear Clear [facility] Urine Hgb Negative NEGATIVE [facility] Urobilinogen, Urine Normal Normal [facility] S [facility] XR CHEST PORTABLEon 09-24-19 23 1. Mild vascular congestion without overt edema. 2. Patchy opacities in the lung bases, left greater than right, as seen with recent abdominal CT. [facility] EXAMINATION: ONE XRAY VIEW OF THE [...] The cardiac and mediastinal contours appear unchanged. [facility]IS CONSOLIDATED Aj De Leon MD - 09/23/2022 [...] right, as seen with recent abdominal CT. [facility] [employer] Work Phone: Radiology Study observation (narrative) [facility] [employer] Work Phone: XR CHEST PORTABLEOrdered By: Aj De Leon on 09-23-2022 [facility] [employer] Work Phone: LARGE JOINT/BURSA INJECTION AND/OR ASPIRATIONon 09-10-2022 Radiology Study observation (narrative) [place] [employer] [facility] CBC with Auto Differentialon 09-09-2022 Absolute Eos # 0.04 [place] [facility] Absolute Immature Granulocyte 0.04 [facility] Absolute Lymph # 1.55 [facility] Absolute [place] # 0.84 [facility] RS [facility] Basophils (Bld) [#/Vol] 0.04 10*3/uL [facility] Basophils/100 WBC (Bld) 0 % 0 - 2 % [facility] Eosinophils/100 WBC (Bld) 0 % Low 1 - 4 % [facility] Hematocrit (Bld) [Volume fraction] 38.0 % 36.3 - 47.1 % [facility] Hemoglobin (Bld) [Mass/Vol] 11.7 g/dL Low 11.9 - 15.1 g/dL [facility] Immature granulocytes/100 WBC (Bld) 0 % 0 [facility] Interpretation and review of laboratory results Abnormal [facility] Lymphocytes/100 WBC (Bld) 16 % Low 24 - 43 % [facility] MCH (RBC) [Entitic mass] 26.8 pg 25.2 - 33.5 pg [facility] MCHC (RBC) [Mass/Vol] 30.8 g/dL 28.4 - 34.8 g/dL [facility] MCV (RBC) [Entitic vol] 87.2 fL 82.6 - 102.9 fL [facility] Monocytes/100 WBC (Bld) 9 % 3 - 12 % [facility] NRBC Automated 0.0 0.0 per 100 WBC [facility] Platelet distribution width (Bld) [Ratio] 15.1 % High 11.8 - 14.4 % [facility] Platelet mean volume (Bld) [Entitic vol] 9.5 fL 8.1 - 13.5 fL [facility] Platelets (Bld) [#/Vol] 250 10*3/uL [facility] RBC (Bld) [#/Vol] 4.36 10*6/uL 3.95 - 5.1 1 m/uL [facility] RBC (Bld) [#/Vol] ANISOCYTOSIS PRESENT [facility] Segmented neutrophils/100 WBC (Bld) 75 % High 36 - 65 % [facility] Segs Absolute 7.09 [facility] WBC (Bld) [#/Vol] 9.6 10*3/uL [facility] CBC with Diffon 09-09-2022 Abs. Basophil 0.04 k/uL Normal 0.00-0.20 [facility] Comment on above: Performed By: #### C DP #### [address] [place] [address] Belt Repairer: Aramis Hoffmann MD Abs.Imm.Granulocyte 0.04 k/uL Normal 0.00-0.30 [facility] Comment on above: Performed By: #### C DP #### [address] [facility] [place] [address] Belt Repairer: Aramis Hoffmann MD Abs.Neutrophil (Seg) 7.09 k/uL Normal 1.50-8.10 [facility] Comment on above: Performed By: #### C DP #### [address] [place] [address] [id number] Belt Repairer: Aramis Hoffmann MD Basophils/100 WBC (Bld) 0 % Normal 0-2 [facility] Comment on above: Performed By: #### C DP #### [address] [address] Belt Repairer: Aramis Hoffmann MD Eosinophils (Bld) [#/Vol] 0.04 10*3/uL Normal 0.00-0.44 [facility] Comment on above: Performed By: #### C DP #### [address] [address] Belt Repairer: Aramis Hoffmann MD Eosinophils/100 WBC (Bld) 0 % Low 1-4 [facility] Comment on above: Performed By: #### C DP #### [address] [address] Belt Repairer: Aramis Hoffmann MD Erythrocyte distribution width (RBC) [Ratio] 15.1 % High 11.8-14.4 [facility] Comment on above: Performed By: #### C DP #### [address] [address] Belt Repairer: Aramis Hoffmann MD Hematocrit (Bld) [Volume fraction] 38.0 % Normal 36.3-47.1 [facility] Comment on above: Performed By: #### C DP #### [address] [address] Belt Repairer: Aramis Hoffmann MD Hemoglobin (Bld) [Mass/Vol] 11.7 g/dL Low 11.9-15.1 [facility] Comment on above: Performed By: #### C DP #### [address] [address] Belt Repairer: Aramis Hoffmann MD Immature granulocytes/100 WBC (Bld) 0 % Normal 0 [facility] Comment on above: Performed By: #### C DP #### [address] [address] Belt Repairer: Aramis Hoffmann MD Lymphocytes (Bld) [#/Vol] 1.55 10*3/uL Normal 1.10-3.70 [facility] Comment on above: Performed By: #### C DP #### [address] [address] Belt Repairer: Aramis Hoffmann MD Lymphocytes/100 WBC (Bld) 16 % Low 24-43 [facility] Comment on above: Performed By: #### C DP #### [place] [address] Belt Repairer: Aramis Hoffmann MD MCH (RBC) [Entitic mass] 26.8 pg Normal 25.2-33.5 [facility] Comment on above: Performed By: #### C DP #### [place] [address] Belt Repairer: Aramis Hoffmann MD MCHC (RBC) [Mass/Vol] 30.8 g/dL Normal 28.4-34.8 [facility] Comment on above: Performed By: #### C DP #### [address] [address] Belt Repairer: Aramis Hoffmann MD MCV (RBC) [Entitic vol] 87.2 fL Normal 82.6-102.9 [facility] Comment on above: Performed By: #### C DP #### [address] [address] Belt Repairer: Aramis Hoffmann MD Monocytes (Bld) [#/Vol] 0.84 10*3/uL Normal 0.10-1.20 [facility] Comment on above: Performed By: #### C DP #### [address] [address] Belt Repairer: Aramis Hoffmann MD Monocytes/100 WBC (Bld) 9 % Normal 3-12 [facility] Comment on above: Performed By: #### C DP #### [address] [address] Belt Repairer: Aramis Hoffmann MD Neutrophil (Seg) 75 % High 36-65 [facility] Comment on above: Performed By: #### C DP #### [address] [address] Belt Repairer: Aramis Hoffmann MD NRBC Automated 0.0 per 100 WBC Normal 0.0 [facility] Comment on above: Performed By: #### C DP #### [address] [address] Belt Repairer: Aramis Hoffmann MD Platelet mean volume (Bld) [Entitic vol] 9.5 fL Normal 8.1-13.5 [facility] Comment on above: Performed By: #### C DP #### [address] [address] Belt Repairer: Aramis Hoffmann MD Platelets (Bld) [#/Vol] 250 10*3/uL Normal 138-453 [facility] Comment on above: Performed By: #### C DP #### [address] [address] Belt Repairer: Aramis Hoffmann MD RBC (Bld) [#/Vol] 4.36 10*6/uL Normal 3.95-5.11 [facility] Comment on above: Performed By: #### C DP #### [address] [address] Belt Repairer: Aramis Hoffmann MD RBC morphology finding Nom (Bld) ANISOCYTOSIS PRESENT Normal [facility] Comment on above: Performed By: #### C DP #### [address], [place] [id number] Belt Repairer: Aramis Hoffmann MD WBC (Bld) [#/Vol] 9.6 10*3/uL Normal 3.5-11.3 [facility] Comment on above: Performed By: #### C DP #### [facility] [place], [place] [phone] Belt Repairer: Aramis Hoffmann MD POC Glucose Fingerstickon Glucose [Mass/Vol] 129 mg/dL High 65 - 105 mg/dL [facility] Interpretation and review of laboratory results Abnormal [facility] Glucose [Mass/Vol] 135 mg/dL High 65 - 105 mg/dL [facility] Interpretation and review of laboratory results Abnormal [facility] [place] 125on 09-08-2022 CA 125 18 U/mL Normal <38 [facility] Comment on above: Result Comment: The Mallorie ECLIA assay is used. Results obtained with different assay methods cannot be used interchangeable. Performed By: #### C MPX, CA125, CDP #### [facility] [employer] [address] [place], [place] [id number] Belt Repairer: Aramis Hoffmann MD Cancer Ag 125 Qn 18 [arb'U]/mL NINF - 38 U/mL [facility] Comment on above: The Mallorie ECLIA as say is used. Results obtained with different assay methods cannot be used interchangeable. [facility] CBC auto differentialon 08-29 Absolute Eos # 0.19 [facility] Absolute Immature Granulocyte 0.04 [facility] Absolute Lymph # 1.63 [facility] Absolute [place] # 0.78 [facility] Basophils (Bld) [#/Vol] 0.05 10*3/uL [facility] Basophils/100 WBC (Bld) 1 % 0 - 2 % [facility] Eosinophils/100 WBC (Bld) 2 % 1 - 4 % [facility] Hematocrit (Bld) [Volume fraction] 42.8 % 36.3 - 47.1 % [facility] Hemoglobin (Bld) [Mass/Vol] 13.4 g/dL 11.9 - 15.1 g/dL [facility] Immature granulocytes/100 WBC (Bld) 1 % High 0 [facility] Interpretation and review of laboratory results Abnormal [facility] Lymphocytes/100 WBC (Bld) 20 % Low 24 - 43 % [facility] MCH (RBC) [Entitic mass] 26.7 pg 25.2 - 33.5 pg [facility] MCHC (RBC) [Mass/Vol] 31.3 g/dL 28.4 - 34.8 g/dL [facility] MCV (RBC) [Entitic vol] 85.3 fL 82.6 - 102.9 fL [facility] Monocytes/100 WBC (Bld) 10 % 3 - 12 % [facility] NRBC Automated 0.0 0.0 per 100 WBC [facility] Platelet distribution width (Bld) [Ratio] 15.0 % High 11.8 - 14.4 % [facility] Platelet mean volume (Bld) [Entitic vol] 10.0 fL 8.1 - 13.5 fL [facility] Platelets (Bld) [#/Vol] 255 10*3/uL [facility] RBC (Bld) [#/Vol] 5.02 10*6/uL 3.95 - 5.1 1 m/uL [facility] RBC (Bld) [#/Vol] ANISOCYTOSIS PRESENT [facility] Segmented neutrophils/100 WBC (Bld) 66 % High 36 - 65 % [facility] Segs Absolute 5.36 [facility] WBC (Bld) [#/Vol] 8.1 10*3/uL [facility] CBC with Diffon 09-08-2022 Abs. Basophil 0.05 k/uL Normal 0.00-0.20 [facility] Comment on above: Performed By: #### C MPX, CA125, CDP #### [address] [place] [address] Belt Repairer: Aramis Hoffmann MD Abs.Imm.Granulocyte 0.04 k/uL Normal 0.00-0.30 [facility] Comment on above: Performed By: #### C MPX, CA125, CDP #### [facility] [employer] [address] [place] [address] Belt Repairer: Aramis Hoffmann MD Abs.Neutrophil (Seg) 5.36 k/uL Normal 1.50-8.10 [facility] Comment on above: Performed By: #### C MPX, CA125, CDP #### [address] [address] Belt Repairer: Aramis Hoffmann MD Basophils/100 WBC (Bld) 1 % Normal 0-2 [facility] Comment on above: Performed By: #### C MPRob, CA125, CDP #### [facility] [employer] [address] [place] [address] Belt Repairer: Aramis Hoffmann MD Eosinophils (Bld) [#/Vol] 0.19 10*3/uL Normal 0.00-0.44 [facility] Comment on above: Performed By: #### C MPX, CA125, CDP #### [facility] [employer] [address] [place] [address] Belt Repairer: Aramis Hoffmann MD Eosinophils/100 WBC (Bld) 2 % Normal 1-4 [facility] Comment on above: Performed By: #### C MPX, CA125, CDP #### [facility] [employer] [address] [place] [address] Belt Repairer: Aramis Hoffmann MD Erythrocyte distribution width (RBC) [Ratio] 15.0 % High 11.8-14.4 [facility] Comment on above: Performed By: #### C MPX, CA125, CDP #### [facility] [employer] [address] [place] [address] Belt Repairer: Aramis Hoffmann MD Hematocrit (Bld) [Volume fraction] 42.8 % Normal 36.3-47.1 [facility] Comment on above: Performed By: #### C MPX, CA125, CDP #### [facility] [address] [address] Belt Repairer: Aramis Hoffmann MD Hemoglobin (Bld) [Mass/Vol] 13.4 g/dL Normal 11.9-15.1 [facility] Comment on above: Performed By: #### C MPX, CA125, CDP #### [address] [address] Belt Repairer: Aramis Hoffmann MD Immature granulocytes/100 WBC (Bld) 1 % High 0 [facility] Comment on above: Performed By: #### C MPX, CA125, CDP #### [address] [address] Belt Repairer: Aramis Hoffmann MD Lymphocytes (Bld) [#/Vol] 1.63 10*3/uL Normal 1.10-3.70 [facility] Comment on above: Performed By: #### C MPX, CA125, CDP #### [facility] [employer] [address] [place] [address] Belt Repairer: Aramis Hoffmann MD Lymphocytes/100 WBC (Bld) 20 % Low 24-43 [facility] Comment on above: Performed By: #### C MPX, CA125, CDP #### [facility] [address] [place] [address] Belt Repairer: Aramis Hoffmann MD MCH (RBC) [Entitic mass] 26.7 pg Normal 25.2-33.5 [facility] Comment on above: Performed By: #### C MPX, CA125, CDP #### [facility] [employer] [address] [place] [address] Belt Repairer: Aramis Hoffmann MD MCHC (RBC) [Mass/Vol] 31.3 g/dL Normal 28.4-34.8 [facility] Comment on above: Performed By: #### C MPRob CA125, CDP #### [address] [address] Belt Repairer: Aramis Hoffmann MD MCV (RBC) [Entitic vol] 85.3 fL Normal 82.6-102.9 [facility] Comment on above: Performed By: #### C MPRob, CA125, CDP #### [address] [address] Belt Repairer: Aramis Hoffmann MD Monocytes (Bld) [#/Vol] 0.78 10*3/uL Normal 0.10-1.20 [facility] Comment on above: Performed By: #### C MELITA CA125, CDP #### [address] [address] Belt Repairer: Aramis Hoffmann MD Monocytes/100 WBC (Bld) 10 % Normal 3-12 [facility] Comment on above: Performed By: #### C MELITA CA125, CDP #### [address] [address] Belt Repairer: Aramis Hoffmann MD Neutrophil (Seg) 66 % High 36-65 [facility] Comment on above: Performed By: #### C MPRob CA125, CDP #### [address] [address] Belt Repairer: Aramis Hoffmann MD NRBC Automated 0.0 per 100 WBC Normal 0.0 [facility] Comment on above: Performed By: #### C MPRob CA125, CDP #### [address] [address] Belt Repairer: Aramis Hoffmann MD Platelet mean volume (Bld) [Entitic vol] 10.0 fL Normal 8.1-13.5 [facility] Comment on above: Performed By: #### C MPX, CA125, CDP #### [address] [address] Belt Repairer: Aramis Hoffmann MD Platelets (Bld) [#/Vol] 255 10*3/uL Normal 138-453 [facility] Comment on above: Performed By: #### C MPX, CA125, CDP #### [address] [address] Belt Repairer: Aramis Hoffmann MD RBC (Bld) [#/Vol] 5.02 10*6/uL Normal 3.95-5.11 [facility] Comment on above: Performed By: #### C MPX, CA125, CDP #### [address] [address] Belt Repairer: Aramis Hoffmann MD RBC morphology finding Nom (Bld) ANISOCYTOSIS PRESENT Normal [facility] Comment on above: Performed By: #### C MPX, CA125, CDP #### [address] [address] Belt Repairer: Aramis Hoffmann MD WBC (Bld) [#/Vol] 8.1 10*3/uL Normal 3.5-11.3 [facility] Comment on above: Performed By: #### C MPX, CA125, CDP #### [address] [address] Belt Repairer: Aramis Hoffmann MD Comp Metabolic Pr/rfx MGon 0 - AST [Catalytic activity/Vol] 25 U/L Normal <32 [facility] Comment on above: Performed By: #### C MPX, CA125, CDP #### [address] [address] Belt Repairer: Aramis Hoffmann MD Albumin [Mass/Vol] 3.7 g/dL Normal 3.5-5.2 [facility] Comment on above: Performed By: #### C MPX CA125, CDP #### [facility] [address] [place] [address] Belt Repairer: Aramis Hoffmann MD Albumin/Glob Ratio 1.1 Normal 1.0-2.5 [facility] Comment on above: Performed By: #### C MPX, CA125, CDP #### [facility] [employer] [address] [place] [address] Belt Repairer: Aramis Hoffmann MD Alkaline Phos 97 U/L Normal 35-104 [facility] Comment on above: Performed By: #### C MPRob CA125, CDP #### [address] [address] Belt Repairer: Aramis Hoffmann MD ALT [Catalytic activity/Vol] 27 U/L Normal 5-33 [facility] Comment on above: Performed By: #### C MELITA CA125, CDP #### [address] [address] Belt Repairer: Aramis Hoffmann MD Anion gap [Moles/Vol] 8 mmol/L Low 9-17 [facility] Comment on above: Performed By: #### C MELITA CA125, CDP #### [facility] [employer] [address] [place] [address] Belt Repairer: Aramis Hoffmann MD Bilirubin [Mass/Vol] 0.3 mg/dL Normal 0.3-1.2 [facility] Comment on above: Performed By: #### C MPX, CA125, CDP #### [facility] [employer] [address] [place] [address] Belt Repairer: Aramis Hoffmann MD Calcium [Mass/Vol] 9.2 mg/dL Normal 8.6-10.4 [facility] Comment on above: Performed By: #### C MPX, CA125, CDP #### [address] [address] Belt Repairer: Aramis Hoffmann MD Chloride [Moles/Vol] 98 mmol/L Normal 98-107 [facility] Comment on above: Performed By: #### C MPX, CA125, CDP #### [facility] [address] [place] [address] Belt Repairer: Aramis Hoffmann MD CO2 [Moles/Vol] 27 mmol/L Normal 20-31 [facility] Comment on above: Performed By: #### C MPX, CA125, CDP #### [address] [address] Belt Repairer: Aramis Hoffmann MD Creatinine [Mass/Vol] 0.72 mg/dL Normal 0.50-0.90 [facility] Comment on above: Performed By: #### C MPX, CA125, CDP #### [address] [address] Belt Repairer: Aramis Hoffmann MD GFR/1.73 sq M.predicted among non-blacks MDRD (S/P/Bld) [Vol rate/Area] mL/min/{1.73_m2} Normal >60 [facility] Comment on above: Result Comment: [...] renal tubular secretion. Performed By: #### C MPX, CA125, CDP #### [address] [address] Belt Repairer: Aramis Hoffmann MD Glucose [Mass/Vol] 130 mg/dL High 70-99 [facility] Comment on above: Performed By: #### C MPX, CA125, CDP #### [facility] [place] [address] Belt Repairer: Aramis Hoffmann MD Potassium [Moles/Vol] 4.6 mmol/L Normal 3.7-5.3 [facility] Comment on above: Performed By: #### C MPX, CA125, CDP #### [facility] [address] [place] [address] Belt Repairer: Aramis Hoffmann MD Protein [Mass/Vol] 7.0 g/dL Normal 6.4-8.3 [facility] Comment on above: Performed By: #### C MPX CA125, CDP #### [facility] [address] [place] [address] Belt Repairer: Aramis Hoffmann MD Sodium [Moles/Vol] 133 mmol/L Low 135-144 [facility] Comment on above: Performed By: #### C BATSHEVAX CA125, CDP #### [facility] [address] [place] [address] Belt Repairer: Aramis Hoffmann MD Urea nitrogen [Mass/Vol] 12 mg/dL Normal 6-20 [facility] Comment on above: Performed By: #### C MPX CA125, CDP #### [facility] [address] [place] [address] Belt Repairer: Aramis Hoffmann MD Comprehensive Metabolic Pane l w/ Reflex to MGon 09-08-2022 Albumin [Mass/Vol] 3.7 g/dL 3.5 - 5.2 g/dL [facility] Albumin/Globulin [Mass ratio] 1.1 {ratio} 1.0 - 2.5 [facility] ALP [Catalytic activity/Vol] 97 U/L 35 - 104 U/L [facility] ALT [Catalytic activity/Vol] 27 U/L 5 - 33 U/L [facility] Anion gap [Moles/Vol] 8 mmol/L Low 9 - 17 mmol/L [facility] AST [Catalytic activity/Vol] 25 U/L NINF - 32 U/L [facility] Bilirubin [Mass/Vol] 0.3 mg/dL 0.3 - 1 .2 mg/dL [facility] Calcium [Mass/Vol] 9.2 mg/dL 8.6 - 10. 4 mg/dL [facility] Chloride [Moles/Vol] 98 mmol/L 98 - 10 7 mmol/L [facility] CO2 [Moles/Vol] 27 mmol/L 20 - 31 mmol/L [facility] Creatinine [Mass/Vol] 0.72 mg/dL 0.50 - 0.90 mg/dL [facility] GFR/1.73 sq M.predicted MDRD (S/P/Bld) [Vol rate/Area] - PINF [facility] Comment on above: These results are [...] 130 mg/dL High 70 - 99 mg/dL [facility] Interpretation and review of laboratory results Abnormal [facility] Potassium [Moles/Vol] 4.6 mmol/L 3.7 - 5.3 mmol/L [facility] Protein [Mass/Vol] 7.0 g/dL 6.4 - 8.3 g/dL [facility] Sodium [Moles/Vol] 133 mmol/L Low 135 - 144 mmol/L [facility] Urea nitrogen [Mass/Vol] 12 mg/dL 6 - 20 mg/dL [facility] HCG Screen, Bloodon 09-09-19 23 HCG Screen, Blood Negative Normal [facility] Comment on above: Result Comment: Spec imens with hCG levels near the threshold of the test (25 mIU/mL) may give a negative or indeterminate result. In such cases, another test should be performed with a new specimen in 48-72 hours. If early is suspected clinically in this setting, correlation with quantitative serum b-hCG level is suggested. [facility] has confirmed the use of plasma for this test. This has not been cleared or approved by the U.S. Food and Drug Administration. The FDA has determined that such clearance is not necessary. Performed By: #### H CG #### [facility] [address] [place] [address] Belt Repairer: Aramis Hoffmann MD HCG, SERUM, QUALITATIVEon hCG Qual Negative NEGATIVE [facility] Comment on above: Specimens with hCG l evels near the threshold of the test (25 mIU/mL) may give a negative or indeterminate result. In such cases, another test should be performed with a new specimen in 48-72 hours. If early is suspected clinically in this setting, correlation with quantitative serum b-hCG level is suggested. [facility] has confirmed the use of plasma for this test. This has not been cleared or approved by the U.S. Food and Drug Administration. The FDA has determined that such clearance is not necessary. [facility] OPERATIVE REPORTon 3 OPERATIVE REPORT [address] [phone] OPERATIVE REPORT PATIENT NAME: SARAH HARRIS : 1975 MED REC NO: [id number] ROOM: 0444 ACCOUNT NO: [id number] ADMIT DATE: 09/08/2022 PROVIDER: Clemencia Campos MD DATE OF PROCEDURE: 09/08/2022 PREOPERATIVE DIAGNOSES: Morbid obesity, pelvic pain, pelvic mass, post ablation syndrome. POSTOPERATIVE DIAGNOSES: Morbid obesity, pelvic pain, pelvic mass, post ablation syndrome, pelvic endometriosis, and retroperitoneal fibrosis. OPERATION PERFORMED: Robotic radical hysterectomy, bilateral salpingo-oophorectomy . SURGEON: Clemencia Campos MD [employer] SUPERVISOR: Benny, PGY-4, Resident ANESTHESIA: General with endotracheal [...] had been (more content not included)... Normal [facility] POC Glucose Fingerstickon Glucose [Mass/Vol] 228 mg/dL High 65 - 105 mg/dL [facility] Interpretation and review of laboratory results Abnormal [facility] Glucose [Mass/Vol] 192 mg/dL High 65 - 105 mg/dL [facility] Interpretation and review of laboratory results Abnormal [facility] Glucose [Mass/Vol] 192 mg/dL High 65 - 105 mg/dL [facility] Interpretation and review of laboratory results Abnormal [facility] Glucose [Mass/Vol] 207 mg/dL High 65 - 105 mg/dL [facility] Interpretation and review of laboratory results Abnormal [facility] Glucose [Mass/Vol] 135 mg/dL High 65 - 105 mg/dL [facility] Interpretation and review of laboratory results Abnormal [facility] Surgical Pathologyon 023 Surgical Pathology (NOTE) -- Diagnosis -- UTERUS, CERVIX, BILATERAL FALLOPIAN TUBES AND OVARIES, HYSTERECTOMY WITH BILATERAL SALPINGECTOMY:-FOCI OF INACTIVE ENDOMETRIUM WITH TREATMENT EFFECT. -FOCAL ADENOMYOSIS. -BILATERAL OVARIES WITH BENIGN CYSTS.-BENIGN CERVIX AND BILATERAL FALLOPIAN TUBES. Joan Cliare Electronically Signed Out 06/03/1109/09/2022 Clinical Information Pre-op Diagnosis: POST ABLATION SYNDROME, SEVERE PELVIC PAIN Operative Findings: UTERUS, CERVIX, BILATERAL FALLOPIAN TUBES OVARIES Operation Performed: XI ROBOTIC LAPAROSCOPIC TOTAL HYSTERECTOMY, BSO, POSSIBLE EXPLORATORY LAPAROTOMY tm Source of Specimen A: UTERUS,CERVIX, BILATERAL FALLOPIAN TUBES AND OVARIES Gross Description SARAH HARRIS, UTERUS, CERVIX, BILATERAL FALLOPIAN TUBES AND OVARIES Uterus with attached cervix and bilateral adnexa. Dimensions: Uterus and cervix 9.8 x 6.2 x 4.0 cm. Weight: Uterus and cervix 111 grams, left tube and ovary 25 grams, right tube and ovary 21 grams. Serosa: [place]-am[place]. Cervix: 4.8 x 4.5 x 4.3 cm, [...] examination performed. SURGICAL PATHOLOGY CONSULTATION Patient Name: SARAH HARRIS [facility] Rec: [id number] Path Number: [id number] [facility] ANATOMIC PATHOLOGY [address] [place] [phone] [facility] Comment on above: Performed By: #### P PPVS #### [facility] [address] [place] [address] Belt Repairer: Aramis Hoffmann MD Type + Screenon 09-08-2022 Type + Screen Sample Expiration 09/11/2022,2359 Arm Band Number [id number] ABO/Rh(D) O POSITIVE Antibody Screen NOT TESTED Antibody Ident Anti-Rahman(A) Present MIGUEL ANGEL, Anti-IgG Conner Serum NEGATIVE Unit Number [id number] Blood Component Type Leukocyte Reduced Red Cell Unit Division 00 Status of Unit REL FROM ALLOC Transfusion Status OK TO TRANSFUSE Crossmatch Result COMPATIBLE Unit Number [id number] Blood Component Type Leukocyte Reduced Red Cell Unit Division 00 Status of Unit REL FROM ALLOC Transfusion Status OK TO TRANSFUSE Crossmatch Result COMPATIBLE Unit Number [id number] Blood Component Type Leukocyte Reduced Red Cell Unit Division 00 Status of Unit REL FROM ALLOC Transfusion Status OK TO TRANSFUSE Crossmatch Result COMPATIBLE Unit Number [id number] Blood Component Type Leukocyte Reduced Red Cell Unit Division 00 Status of Unit REL FROM ALLOC Transfusion Status OK TO TRANSFUSE Crossmatch Result COMPATIBLE [facility] Comment on above: Performed By: #### T YS #### [facility] [employer] [address] [place] [address] Belt Repairer: Aramis Hoffmann MD EKG 12 leadOrdered By: Miquel perales on 08-25-2022 Atrial Rate 90 BPM [facility] [employer] Work Phone: P [place] 56 degrees [facility] Work Phone: P-R Interval 172 ms RICHELLE [employer] Phone: Q-T Interval 354 ms [employer] Phone: QRS Duration 74 ms [employer] Phone: QTc Calculation (Bazett) 433 ms [employer] Phone: R [place] 38 degrees [employer] Phone: T [place] 29 degrees [employer] Phone: Ventricular Rate 90 BPM RICHELLE [email or web address] Phone: RICHELLE [employer] Phone: EKG 12 leadon 08-25-2022 Normal sinus rhythm Normal ECG When compared with ECG of 04-DEC-2021 10:24, No significant change was found Confirmed by Miquel Santos MD ([id number]) on 08/25/2022 3:15:19 PM [facility] Miquel Santos MD - 08/25/2022 Normal sinus rhythm Normal ECG When compared with ECG of 04-DEC-2021 10:24, No significant change was found Confirmed by Miquel Santos MD ([id number]) on 08/25/2022 3:15:19 PM [employer] Phone: LARGE JOINT/BURSA INJECTION AND/OR ASPIRATIONon 08-14-2022 Jose London, ANABELL 09/10/2022 11:45 PM LARGE JOINT/BURSA INJECTION AND/OR [...] fashion. The patient was prepped with Chloraprep. [employer] [facility] [employer] US Unspecified body regionon 08-14-2022 Image Storage This order is to facilitate the storage of the image. [employer] Estradiolon 07-31-2022 Estradiol 53.2 pg/mL 27 - 314 pg/mL [facility] Comment on above: FEMALES: Normally menstruating Luteal phase 33-298 Follicular phase 27-156 Midcycle phase 48-314 Postmenopausal (untreated) 5-50 Fulvestrant treatment will show an increased estradiol concentration with this methodology. Alternate methodologies are available upon request. Follicle Stimulating Hormone on 07-31-2022 FSH 7.3 [facility] Comment on above: Reference Range: Male: 1.5-12.4 Ovulating Female: Follicular Phase 3.5-12.5 Ovulation Phase 4.7-21.5 Luteal Phase 1.7-7.7 Postmenopausal Female: 25.8-134.8 No Panel Informationon 07-31 [facility] LOWER EXTREMITY INJECTIONon 06-23-2022 Keila Hemphill MD [...] fashion. The patient was prepped with alcohol. [facility] Radiology Study observation (narrative) [facility] XR HIPS WITH PELVIS BILATERA Levy 2022 XR HIPS WITH PELVIS BILATERAL EXAM: [...] hips. 2. Degenerative changes sacroiliac joints. Normal [facility] XR LUMBAR SPINE (MIN 6 VIEWS )on 06-10-2022 FINDINGS/IMPRESSION: 1. Moderate degenerative change disc and facets L4-L5 and L5-S1. 2. Mild degenerative disc space narrowing otherwise. 3. No pars defects or fracture. 4. No abnormal motion on flexion-extension. 5. Symmetric moderate degenerative change at the SI joints. [facility] RIS CONSOLIDATED EXAM: XR LUMBAR SPIN E (MIN 6 VIEWS) HISTORY: Low back pain, unspecified back pain laterality, unspecified chronicity, unspecified whether sciatica present COMPARISON: CT abdomen pelvis 01/07/2022, lumbar spine series 04/13/2021. [facility] Jairo Mcdonald Jr., MD - 06/10/2022 EXAM: [...] moderate degenerative change at the SI joints. [employer] Phone: Radiology Study observation (narrative) [employer] Phone: XR LUMBAR SPINE (MIN 6 VIEWS )Ordered By: Jairo Mcdonald on 06-10-2022 [employer] Phone: MRI LUMBAR SPINE WO CONTRAST on 05-18-2022 1. Moderate degenerative disc disease and facet arthropathy at L5-S1. Disc bulge and ligamentum flavum thickening result in severe spinal stenosis. There is moderate bilateral foraminal narrowing at this level. 2. Normal alignment. No acute compression fractures. [facility] MRI LUMBAR SPINE WITHOUT CONTRAST, 05/18/2022 HISTORY: [...] in the conus medullaris. No paraspinal mass. [facility] Hao Engel MD - 05/18/2022 MRI LUMBAR SPINE WITHOUT [...] 2. Normal alignment. No acute compression fractures. [employer] Phone: Radiology Study observation (narrative) [employer] Phone: MRI LUMBAR SPINE WO CONTRAST Ordered By: Hao Toth on 05-18-2022 [employer] Phone: Basic Metabolic Panelon 10-2 Anion gap [Moles/Vol] 8 mmol/L Low 9 - 17 mmol/L [facility] Calcium [Mass/Vol] 8.9 mg/dL 8.6 - 10. 4 mg/dL [facility] Chloride [Moles/Vol] 100 mmol/L 98 - 10 7 mmol/L [facility] CO2 [Moles/Vol] 27 mmol/L 20 - 31 mmol/L [facility] Creatinine [Mass/Vol] 0.56 mg/dL 0.50 - 0.90 mg/dL [facility] GFR/1.73 sq M.predicted MDRD (S/P/Bld) [Vol rate/Area] - PINF [facility] Comment on above: Effective Mar 02, 2022 [...] 119 mg/dL High 70 - 99 mg/dL [facility] Interpretation and review of laboratory results Abnormal [facility] Potassium [Moles/Vol] 4.3 mmol/L 3.7 - 5.3 mmol/L [facility] Sodium [Moles/Vol] 135 mmol/L 135 - 144 mmol/L [facility] Urea nitrogen (BldV) [Mass/Vol] 10 mg/dL 6 - 20 mg/dL [facility] Urea nitrogen/Creatinine (Bld) [Mass ratio] 18 9 - 20 [facility] CBCon 03-26-2022 Hematocrit (Bld) [Volume fraction] 38.3 % 36.3 - 47.1 % [facility] Hemoglobin (Bld) [Mass/Vol] 11.8 g/dL Low 11.9 - 15.1 g/dL [facility] Interpretation and review of laboratory results Abnormal [facility] MCH (RBC) [Entitic mass] 26.2 pg 25.2 - 33.5 pg [facility] MCHC (RBC) [Mass/Vol] 30.8 g/dL 28.4 - 34.8 g/dL [facility] MCV (RBC) [Entitic vol] 84.9 fL 82.6 - 102.9 fL [facility] NRBC Automated 0.0 0.0 per 100 WBC [facility] Platelet distribution width (Bld) [Ratio] 14.9 % High 11.8 - 14.4 % [facility] Platelet mean volume (Bld) [Entitic vol] 9.5 fL 8.1 - 13.5 fL [facility] Platelets (Bld) [#/Vol] 267 10*3/uL [facility] RBC (Bld) [#/Vol] 4.51 10*6/uL 3.95 - 5.1 1 m/uL [facility] WBC (Bld) [#/Vol] 11.1 10*3/uL [facility] Antinuclear Antibodieson 01-28-2022 Antinuclear Abs, IFA Negative Normal . [facility] Comment on above: Result Comment: Nega tive <1:80 Borderline 1:80 Positive >1:80 ICAP nomenclature: AC-0 For more information about Hep-2 cell patterns use ANApatterns.org, the official website for the International Consensus on Antinuclear Antibody ([place]UGENE) Patterns (ICAP). Performed at: - [facility] [place] [id number] Belt Repairer: Brandon Duarte PhD, Phone: [phone] PERFORMED BY: [place] [address] PATHOLOGIST DIRECTOR HOUSEKEEPING RADHA SHERIDAN M.D. Performed By: #### A NA #### [facility] , #### CK #### [address] Creatine Kinaseon 01-28-2022 CK [Catalytic activity/Vol] 56 U/L Normal 22-269 [facility] Comment on above: Result Comment: PERF ORMED BY: [place] [address] PATHOLOGIST DIRECTOR HOUSEKEEPING RADHA SHERIDAN M.D. Performed By: #### A NA #### [facility] , #### CK #### [facility] [address] [place] [address] [facility] Creatine kinase [Enzymatic a ctivity/volume] in Serum or PlasmaOrdered By: Ministerio Martínez on 01-28-2022 CK [Catalytic activity/Vol] 56 U/L [facility] XR hand BI 2Von 01-28-2022 XR hand BI 2V [facility] Main [facility] [address] [place] [address] XRay Report Signed Patient: Sarah Harris MR#: [id number] : 1975 Acct:[id number] Age/Sex: 46 / F ADM Date: 01/28/22 Loc: ICXD Room: Type: [facility] Attending Dr: Ministerio Martíenz MD Copies to: Ministerio Martínez MD Ordering [...] Omero Lloyd M.D.01/28/2022 2:52 PM Dictation Location: [place] [address] Transcribed By: [facility] 01/28/22 145 Dictated By: Oemro Lloyd II, MD 01/28/22 145 Signed By: 01/28/22 145 Normal [facility] BUN & Creatinineon Creatinine [Mass/Vol] 0.55 mg/dL 0.5 - 0.9 mg/dL [facility] GFR >60 60 - PI NF mL/min [facility] GFR Non- >60 60 - PINF mL/min [facility] Urea nitrogen (BldV) [Mass/Vol] 8 mg/dL 6 - 20 mg/dL [employer] [facility] - Chemistry and C hemistry - challengeon 01-07-2022 GFR/1.73 sq M.predicted MDRD (S/P/Bld) [Vol rate/Area] [facility] [employer] Comment on above: Average GFR for 40-4 9 years old: 99 mL/min/1.73sq m Chronic Kidney Disease: <60 mL/min/1.73sq m Kidney failure: <15 mL/min/1.73sq m eGFR calculated using average adult body mass. Additional eGFR calculator available at: http://www.FreeCharge/multiple_crcl_2012.htm Stage 1: Some kidney damage normal GFR Stage 2: Mild kidney damage GFR 60-89 Stage 3: Moderate kidney damage GFR 30-59 Stage 4: Severe kidney damage GFR 15-29 Stage 5: Severe kidney damage GFR <15 ESRD - chronic treatment by dialysis or transplant Glucose, Whole Bloodon 12-10 Glucose [Mass/Vol] 125 mg/dL High 74 - 100 mg/dL [facility] Interpretation and review of laboratory results Abnormal [facility] Culture, Urineon 12-05-2021 Bacteria identified Cx Nom (U) NO SIGNIFICANT GROWTH [facility] Pinterest Specimen Description .CLEAN CATCH URINE [facility] EKG 12 LeadOrdered By: Lito Knox on 12-05-2021 Atrial Rate 88 BPM [facility] [employer] Work Phone: P [place] 52 degrees [facility] Work Phone: P-R Interval 170 ms [facility] [employer] Work Phone: Q-T Interval 372 ms [facility] [employer] Work Phone: QRS Duration 76 ms [facility] [employer] Work Phone: QTc Calculation (Bazett) 450 ms [facility] [employer] Work Phone: R [place] 28 degrees [facility] [employer] Work Phone: T [place] 15 degrees [facility] [employer] Work Phone: Ventricular Rate 88 BPM [facility] [employer] [facility] Work Phone: RICHELLE REED [facility] Work Phone: EKG 12 Leadon 12-05-2021 Normal sinus rhythm Normal ECG No previous ECGs available Confirmed by CLEMENCIA KNOX ([id number]) on 12/05/2021 12:01:49 PM [facility] Clemencia Knox MD - 12/05/2021 Normal sinus rhythm Normal ECG No previous ECGs available Confirmed by CLEMENCIA KNOX ([id number]) on 12/05/2021 12:01:49 PM RICHELLE [facility] Work Phone: CBC with Auto Differentialon 12-04-2021 Absolute Eos # 0.59 High [place] [facility] Absolute Immature Granulocyte 0.05 [facility] Absolute Lymph # 2.41 [facility] Absolute [place] # 0.76 [facility] Basophils (Bld) [#/Vol] 0.09 10*3/uL [facility] Basophils/100 WBC (Bld) 1 % 0 - 2 % [facility] Eosinophils/100 WBC (Bld) 5 % High 1 - 4 % [facility] Hematocrit (Bld) [Volume fraction] 41.1 % 36.3 - 47.1 % [facility] Hemoglobin (Bld) [Mass/Vol] 12.2 g/dL 11.9 - 15.1 g/dL [facility] Immature granulocytes/100 WBC (Bld) 0 % 0 [facility] Interpretation and review of laboratory results Abnormal [facility] Lymphocytes/100 WBC (Bld) 20 % Low 24 - 43 % [facility] MCH (RBC) [Entitic mass] 24.7 pg Low 25.2 - 33.5 pg [facility] MCHC (RBC) [Mass/Vol] 29.7 g/dL 28.4 - 34.8 g/dL [facility] MCV (RBC) [Entitic vol] 83.2 fL 82.6 - 102.9 fL [facility] Monocytes/100 WBC (Bld) 6 % 3 - 12 % [facility] NRBC Automated 0.0 0.0 per 100 WBC [facility] Platelet distribution width (Bld) [Ratio] 16.2 % High 11.8 - 14.4 % [facility] Platelet mean volume (Bld) [Entitic vol] 9.7 fL 8.1 - 13.5 fL [facility] Platelets (Bld) [#/Vol] 329 10*3/uL [facility] RBC (Bld) [#/Vol] 4.94 10*6/uL 3.95 - 5.1 1 m/uL [facility] Segmented neutrophils/100 WBC (Bld) 68 % High 36 - 65 % [facility] Segs Absolute 7.91 [facility] WBC (Bld) [#/Vol] 11.8 10*3/uL High [facility] S [facility] HCG Qualitative, Serumon hCG Qual Negative NEGATIVE [facility] Comment on above: Specimens with hCG l evels near the threshold of the test (25 mIU/mL) may give a negative or indeterminate result. In such cases, another test should be performed with a new specimen in 48-72 hours. If early is suspected clinically in this setting, correlation with quantitative serum b-hCG level is suggested. [employer] has confirmed the use of plasma for this test. This has not been cleared or approved by the U.S. Food and Drug Administration. The FDA has determined that such clearance is not necessary. [facility] CBC with Auto Differentialon 09-18-2021 Absolute Eos # 0.60 High [facility] Absolute Lymph # 2.10 [facility] Absolute [place] # 0.50 [facility] Basophils (Bld) [#/Vol] 0.10 10*3/uL [facility] [employer] Basophils/100 WBC (Bld) 1 % 0 - 2 % [facility] Differential Type YES [facility] Eosinophils/100 WBC (Bld) 6 % High 0 - 5 % [facility] Hematocrit (Bld) [Volume fraction] 36.8 % 36 - 46 % [facility] [employer] Hemoglobin.gastrointes tinal spec 1 Ql (Stl) 11.7 g/dL Low 12.0 - 16.0 g/dL [facility] Interpretation and review of laboratory results Abnormal [facility] Lymphocytes/100 WBC (Bld) 18 % 15 - 40 % [facility] MCH (RBC) [Entitic mass] 24.5 pg Low 26 - 34 pg [facility] MCHC (RBC) [Mass/Vol] 31.8 g/dL 31 - 37 g/dL [facility] MCV (RBC) [Entitic vol] 76.9 fL Low 80 - 100 fL [facility] Monocytes/100 WBC (Bld) 4 % 4 - 8 % [facility] Platelet distribution width (Bld) [Ratio] 16.8 % High 12.1 - 15.2 % [facility] Platelets (Bld) [#/Vol] 348 10*3/uL [facility] RBC (Bld) [#/Vol] 4.78 10*6/uL 4.0 - 5.2 m/uL [facility] Segmented neutrophils/100 WBC (Bld) 71 % 47 - 75 % [facility] Segs Absolute 8.20 High [facility] WBC (Bld) [#/Vol] 11.5 10*3/uL High [facility] Comprehensive Metabolic Pane levy 09-18-2021 Albumin [Mass/Vol] 3.9 g/dL 3.5 - 5.2 g/dL [facility] ALP (Bld) [Catalytic activity/Vol] 95 U/L 35 - 104 U/L [facility] ALT [Catalytic activity/Vol] 12 U/L 5 - 33 U/L [facility] Anion gap [Moles/Vol] 13 mmol/L 9 - 17 mmol/L [facility] AST [Catalytic activity/Vol] 14 U/L <32 [facility] Bilirubin [Mass/Vol] 0.23 mg/dL Low 0.30 - 1.20 mg/dL [facility] Calcium [Mass/Vol] 9.3 mg/dL 8.6 - 10. 4 mg/dL [facility] Chloride [Moles/Vol] 99 mmol/L 98 - 10 7 mmol/L [facility] CO2 [Moles/Vol] 24 mmol/L 20 - 31 mmol/L [facility] Creatinine [Mass/Vol] 0.64 mg/dL 0.50 - 0.90 mg/dL [facility] Free PSA/Total PSA [Mass fraction] 7.4 g/dL 6.4 - 8.3 g/dL [facility] GFR >60 >60 mL/min [facility] GFR Non- >60 >60 mL/min [facility] GFR/1.73 sq M.predicted MDRD (S/P/Bld) [Vol rate/Area] [facility] Comment on above: Average GFR for 40-4 9 years old: 99 mL/min/1.73sq m Chronic Kidney Disease: <60 mL/min/1.73sq m Kidney failure: <15 mL/min/1.73sq m eGFR calculated using average adult body mass. Additional eGFR calculator available at: [email or web address] Glucose [Mass/Vol] 130 mg/dL High 70 - 99 mg/dL [facility] Interpretation and review of laboratory results Abnormal [facility] Potassium [Moles/Vol] 4.1 mmol/L 3.7 - 5.3 mmol/L [facility] Sodium [Moles/Vol] 136 mmol/L 135 - 144 mmol/L [facility] Urea nitrogen (BldV) [Mass/Vol] 8 mg/dL 6 - 20 mg/dL [facility] Urea nitrogen/Creatinine (Bld) [Mass ratio] 13 [facility] Hepatitis C Antibodyon 09-18 Hepatitis C Ab Non-Reactive NONREACTIVE [facility] Comment on above: The hepatitis C [...] recommended by ordering HCV RNA by PCR. [facility] Ironon 09-18-2021 Interpretation and review of laboratory results Abnormal [facility] Iron [Mass/Vol] 25 ug/dL Low 37 - 145 ug/dL [facility] Lipid Panelon 09-18-2021 Cholesterol [Mass/Vol] 167 mg/dL <200 [facility] Comment on above: Cholesterol Guidelines: <200 Desirable 200-240 Borderline >240 Undesirable Cholesterol in HDL [Mass/Vol] 36 mg/dL Low >40 [facility] Comment on above: HDL Guidelines: <40 Undesirable 40-59 Borderline >59 Desirable Cholesterol in LDL [Mass/Vol] 100 mg/dL 0 - 130 mg/dL [facility] Comment on above: LDL Guidelines: <100 Desirable 100-129 Near to/above Desirable 130-159 Borderline >159 Undesirable Direct (measured) LDL and calculated LDL are not interchangeable tests. Cholesterol.total/Chol esterol in HDL [Mass ratio] 4.6 {ratio} <5 [facility] Interpretation and review of laboratory results Abnormal [facility] Triglyceride [Mass/Vol] 157 mg/dL High <150 [facility] Comment on above: Triglyceride Guidelines: <150 Desirable 150-199 Borderline 200-499 High >499 Very high Based on AHA Guidelines for fasting triglyceride, February 2012. [facility] Microalbumin, Uron 2 Albumin/Creatinine DL <= 20 mg/L (24H U) [Mass ratio] <12 <21 mg/L [facility] Albumin/Creatinine DL <= 20 mg/L (U) [Ratio] Can not be calculated <25 mcg/mg creat [facility] Creatinine [Mass/Vol] 261.8 mg/dL High 28.0 - 217.0 mg/dL [facility] Interpretation and review of laboratory results Abnormal [facility] Patient Fasting?on 2 Patient Fasting? NO [facility] alth [facility] Coding Summary.on 05-20-2021 Coding Summary. [id number] G h0bWw+PGhlYWQ+DK5TVAD zF75xnGOfvE0BU1uPAE1H PNLLIWNQCH4YOA0gnIA8S BbkR6VelrTk GbxwmFCcWM91IGm5KIN2w KucLRqcmJ5amRJlV1h4Zb DrXR66jJ19WWjjUENhCzS 3LjZpbjsgbWFy H8caWkJvwRDvGrj+PHRhY mxlIHdpZHRoPScxMDAlJy VqcTzdVL2xNs9pZPYoOPG vbGxhcHNlOiBj a4tzJGKqZWddRP5twVtxD 7KyxOQ9UZJkd2h1Hc49rH I+WQSwLNV9zEhhSTtiy52 2MoYoq1pgZFH9 vBAmHWxyQHE6C23gh0U3Z XAsDXEiDKT6aNC4bO9oeX loyccdU5LrbRFmGcS5EGQ 9aAUodO6ucIdj vsuurE9aXna+L30BBY3AY DFGZV8FQyn3A6FnItmmwA I+IQ31QDFeMJ39gOChjFH zu7pqxAu8JmOh BAYfVDU2mIscGBrhk9FrN VKnD50doNAbr3C7ZYFtrR nsoGIiSzSvmYR9uV6dWAk srlwvq0uecxjo Vuded4zcvv33bU91N69zJ PbtLXGwCFB1SWLpROLweA afco0tpN3dRn2+DCdyy1j px0htsAy4UjFb RTClkhXgqQtlMSJ8i6KrH p91G7EvhHnjj4TyUzb1gy 86kSMmw9Q3hCJ8YRfiKOV fcZ3vJYvlWlD6 JJVyNqFxtT66yFYvORbgU u8wvAwegQzoER1bPMNuiz ouSXSowD4pLDNnxJYrtSl dCS1nAALlnvzu k507QdArOQQ9UWYjkQXdJ 8NoqO8lOdFjJAIkSWJkO7 AyoMZpERlnI027UBjsLwD 5EFSgvdNzY6Vb JSGndVkaGlT3f3H2Hq0Up 2OgzkslNMD5KWvsBVXfBt DaJjHxCzT2A8ScCvk2PXF czXcqUA9aV6Ll JLXeteuyswfiiBY5SUXdQ TAmpX90kHKzFUsqEy3gn6 U3n345TRPiZOGsqX95In5 udDogMTBwdCBU iG6sqfheo0jxpcaxEgZvH HZeUIi4EGg8HXWykYibWv FfWWR2VxQ3RMB9oRMnnP5 sbWtbjtsojI4x Oyc+I35ibU4nNPN6PNH1m mmvKZCrsuGaSU71JD02S0 RyPjwvdGFibGU+PGRpdiB bcHqjUQ4kMfIy s4xfr4BlDKhnQ5OkFQXcT PhjKko0WIGuBKG5xPX6mZ 2qPJKrLLblp1L4vJZ2U9A jdgGunn0db8jp YNWyRUrfV59wqANbd5G3I WFusMU3MMWvmDheUbUdjR 93Oyc+TGLryLtaw0WrGrw vk1vyv0fguKo2 UqVdLUXmauTquGyfUSE3a 8HcOe73S47dMBfeIYGnTX DsYGDhGHHrbPqoql7msZ4 wIi8+PGNvbCB3 dRP0lR4gMTVcLwM7TEwyZ 528SsAlxJWdIzilv4pfv3 bliXd9LvQjJXKdqnQpxWh cGMK2o1GeYh14 N63yFEafRQMxXMOiPNClE OOsnOokfl6ojZ4bJo6+PC 3yl6rdip94eE84kPO+PHR oWOX3nYgjPQfo NAEojK9qJDyyYgP3ETObS qKiuO71aQMuAZaiKo7wtP ecdRxsLH9hGBXzhcxfs82 1TtKgx4glNQBu lRRqWUklACL4L95js8V2A KZkEDVyXCN6sAT7tL1bkR lnbjogbGVmdDsgdmVydGl lFZfgPRuiZ750 IHRvcDsnPlBhdGllbnQgT jWaTYn4C6PgMda9DJUgwI phOY0xfWGtDWsiEo1gwLm onLutAQ3cDGQp pdnyj672AbLgk8ujDNBzv RVpNAqiDDU7T07ia4M2YP ZkCBUcPIJ9xJQ0zF6hjQi nbjogbGVmdDsg ofHjnYtmNNvxETioF980U HRvcDsnPkJpcnRoIERhdG I3PR35UU89zRVax4B7kHI 2Z7TgAWIccqbf lsjfdKQ8UBXtWPIazR74J c0olHisCp9rKMDbPBS3HW GknKMzA8XsiK2nFgMaWAK yIOVoW9YljXKv PAcpS830UMkxSfP6YWQkp vYlK3ItQJFwsTpwVxY8l3 P1Go0MF3S4PU34QA46jMK ln8B8zYB1G7Bq UKZsqwfdvzfcuMT6UVDfV JIzoB93Yp7vfBjiXj5vSU WaTEC1JYDxuLGjK6NhsG5 yOiAjMDAwMDAw G8WoyDShZVgaX524GLvhM rI8BNJijqReD6IkOQXptZ zsXeP0q1V5Ne4VICk3HI1 3DM17bLFkh0N5 vPE3T9GqXSRsyfygvthup JU1ZBZoHITxjM85Dg8hjP geWe1zJOGuTWG5OJFgpRG aO0ZbsI0cXkFb MTYaAVWgW6UnrWWiFQtgW 556GOruRjO7KQWmdiCpS0 PjTLArjIhmBgZ9a6G9Mc9 HPVRxBT55AKR7 kQT8SW90LE59C2OcSvdse GFibGU+PHRhYmxlIHdpZH RoPScxMDAlJyBzdHlsZT0 xTt3cQNGfXJLs bWweoZBwKiYnw0kiAASzR IjtEM4hwYcfX7KbaHK5CH Cjr3r9Mh20K16dL4IsmQP +GPSrkXT2yTP0 yP3kCeDbWcL6XMyvZ774W uZpfWIgZglaw2nlf9tjkB n3MlV9IXWskcBtsGsqOIG 2r1MqRk44D44o IHdpZHRoPSIxNSUiIHZhb Euvte1nsU6rCa7+PGNvbC A8rDT8fR5eSpUfSbH3MHr fV898KoFlcYHr Oawnn8mxk6xmlQp5AhWyW XHqyjCaoMuzWYL5f3OoDr 90D3NnfHyyp6WxPqb2vw9 7fECrh9R6gEB8 J2ZmWDBfjzrhbSPjpXbkV G9eVOGtrdnaRNGqkM4cZY AlJ2z8IhGhKfT6HVvyJ1E lkdS5ECQbgYLa BQkxHYF2A27cv1C5DDMoB UKeGME3bBM9qL1ksOjkse ogbGVmdDsgdmVydGljYWw nBGliS693LVCo tEnhITKauY2vELDyzOFne NmoND4nTSXkcoagFhuICE 5HLCBBTkdFTEEgTTwvdGQ +ODMsDNO0dWeu FXloELKwqD4nFZZuL2n4O tOoGuU2EBotM7ClZQLuwn zpWk05vP0fTtLkTmO6VWv fO3RziaP6JUKg nSDfJIymQDB0N32rj9L9I JBnKZNbWBL6yKI1rL7ecY lnbjogbGVmdDsgdmVydGl aZIxgQMcsT192 RFWjsKfeToYnMxD1ZjZ9O jG4G7GpQhd0CGQojUhaBI 5zwEVyOJqjVt7svTpkpKm gER1wPSNhqbwq ZJRbvH1qQYLpxNCxxJvzW E4bLTYhusohh346DxGsUB O5HDPmqVAnK6BwhC0hKkY bLQAsVXSrL1Fb dVHxWWsyQ364SHodQtW5G VFipyQzH4AnVQQvcVrnYz R1g2F4Vg39SSFJVZJuajm vdGQ+PHRkIHN0 lXkhKJbcPMHqnB7mQQIvR 4f6FvZvIaV0SHydN5SdRT FdzrvkPb71nG5qOzEfTgE 3CCocY9TbhcQ5 WJFccQCiWZrxIXF6U27fn 2L0YKFaTPNsYZD9jVA0mR 1hbGlnbjogbGVmdDsgdmV ydGljYWwtYWxp P408LHLovSkrHvJbgFWoA TwvdGQ+RMWpSHG6oNuwTL jiIPGwdG5nBBMsO7f8WlZ tMkD2NOtsZ4Ou YAOmnzicGv36dU1aXyUtE lY0REytZ6CdclD6IHUpuB FlMXjnCIF2C02tl3A1PFO hXNZdFJD8vAT4 yC6tiUroqnwnmKCrqQfnd nApzMvwKXqaBOcnH604QW HvtTpmRm36gELpfKrdmnW 2F1XrSbjcePK+ RR26HYZwIS39kOKatGVvw 1hqbFi9EoEwGYXmEQM3wI qeUAvfy4PyNXGnG68dwMU zs2F7UGKxcAwp oHVyVtGnsMT8tN8cXIahs hvnc4noiwrcWmxkw4clki 56qX03K29vDSnuAHXmBLU zMCUiIHZhbGln vc2coH6uIm2+DCBumYV7i OD2nI6gDqInGcP2RVmgK4 44AjJchPDnSvxfs1kis2x mnOj4EuGnKWNt quLzlQbnOLG8p2FdUl28U 29sIHdpZHRoPSIyMCUiIH ChzEfdgn1ljN5hQz6+PC9 xj1wvvb73pU70 dHI+MXNxNUT6mZbaSVynV FFmlG2dXPfnJlJ1NAZoEu BxgG51yNSxZSfqTu5lmVq mzZbzBM2jVMMm fbixb754OzAli7elPOFne TPhFOrmUZP1Q64ex5D1FH QlVQMyLQO8yGS9nQ7bgHh nbjogbGVmdDsg mrYcbDzkXRpyMMunY574Q IXdoHgdNgIcbLFgZ0dbwp FRCG3tEowjmCN+PHRkIHN 0eWxlPSdwYWRk gW4xKKEhO1q0OpYqUiQ5V CavR5ZwzyB3FEVexTXyHH CftGYQxY9saoaih7uznps gIzAwMDAwMDt0 NEf8VIFypAkmGyRyZFE1L gS4ESX8pVPvcK9klPokhs dxkI8dRgh+RklOOjwvdGQ +NDYpMAE0rLhf PCxxQHSmtL7rFAXqQ9y0V mRoVmN2SVreG9SldvF4VL VwuDHxBUSpxBQRmN5oprg um8rhqxrzXqPs JLEfDJc1SQc6SWNqtKbyB vUoUIE3OiM8JJY8kAAclO 0dqXytemkybQ7nNjv+TVJ OOjwvdGQ+PHRk ANF6jSzySIziZTZwnR7gA QDoL1e5RcDcGeJ0RIkmN9 SxxoN2XJFdrQNoJXKiwHW BsI9azwmup3yx jwmoMnShIEQbJRm9FXn2V FKdrOlkPkWzEKZ4ZbU3SK C4gQYqeN7noBckcnhdqD7 wOyc+RFL4RVA6 NQ85PL30K0XhBfqmlHGoe +PHRhYmxlIHdpZHRoPS hsODLrHdBrqGioHF5vCo3 yZGVyLWNvbGxh cHNl (more content not included)... Normal [facility] MRI Shoulder w/o Contrast La laith 05-05-2021 MRI Shoulder w/o Contrast Right [...] by: HAMLET Technologist: SALINA Technical Comments None [facility] Consent for Treatmenton Consent for Treatment [id number]#1 .00CD:127 [facility] RAD - MRI Screening Formon 1 07-03-2020 RAD - MRI Screening Form [id number]#1 .00CD:127 [facility] Physician Orderon 04-30-2021 Physician Order [id number]# 1.00CD:127 [facility] Physician Orderon 04-29-2021 Physician Order [id number]# 1.00CD:127 [facility] Pre-Certification Formon Pre-Certification Form [id number]#1 .00CD:127 [facility] CBC Auto DifferentialOrdered By: Zayra Hart on 04-02-2021 Absolute Eos # 0.50 [facility] [facility] Work Phone: Absolute Immature Granulocyte NOT REPORTED [employer] Work Phone: Absolute Lymph # 1.90 [employer] [facility] Work Phone: Absolute [place] # 0.70 [employer] [facility] Work Phone: Basophils (Bld) [#/Vol] 0.00 10*3/uL [employer] Work Phone: Basophils/100 WBC (Bld) 0 % 0 - 2 % [employer] Work Phone: Differential Type YES [employer] Work Phone: Eosinophils/100 WBC (Bld) 4 % 0 - 5 % [employer] Phone: Hematocrit (Bld) [Volume fraction] 34.8 % Low 36 - 46 % [employer] [facility] Phone: Hemoglobin.gastrointes tinal spec 1 Ql (Stl) 10.9 g/dL Low 12.0 - 16.0 g/dL [facility] Phone: Immature Granulocytes NOT REPORTED 0 % [employer] Phone: Interpretation and review of laboratory results Abnormal [facility] Phone: Lymphocytes/100 WBC (Bld) 17 % 15 - 40 % [facility] [facility] Phone: MCH (RBC) [Entitic mass] 23.3 pg Low 26 - 34 pg [employer] Phone: MCHC (RBC) [Mass/Vol] 31.4 g/dL 31 - 37 g/dL [facility] [employer] Phone: MCV (RBC) [Entitic vol] 74.3 fL Low 80 - 100 fL [facility] [facility] Phone: Monocytes/100 WBC (Bld) 6 % 4 - 8 % [facility] [facility] Phone: NRBC Automated NOT REPORTED per 100 [facility] Work Phone: Platelet distribution width (Bld) [Ratio] 18.5 % High 12.1 - 15.2 % [employer] Work Phone: Platelet Estimate NOT REPORTED [facility] Phone: Platelet mean volume (Bld) [Entitic vol] NOT REPORTED 6.0 - 12.0 fL [employer] Work Phone: Platelets (Bld) [#/Vol] 341 10*3/uL [employer] Work Phone: RBC (Bld) [#/Vol] 4.68 10*6/uL 4.0 - 5.2 m/uL [employer] Work Phone: RBC (Bld) [#/Vol] NOT REPORTED [facility] [facility] Phone: Segmented neutrophils/100 WBC (Bld) 73 % 47 - 75 % [employer] Work Phone: Segs Absolute 8.30 [place] Work Phone: WBC (Bld) [#/Vol] 11.5 10*3/uL High [employer] Work Phone: WBC (Bld) [#/Vol] NOT REPORTED [facility] Phone: [employer] Work Phone: Comprehensive Metabolic Pane lOrdered By: Zayra Hart on 04-02-2021 Albumin [Mass/Vol] 3.9 g/dL 3.5 - 5.2 g/dL [facility] Phone: Albumin/Globulin Ratio NOT REPORTED [employer] Work Phone: ALP (Bld) [Catalytic activity/Vol] 87 U/L 35 - 104 U/L [facility] Phone: ALT [Catalytic activity/Vol] 14 U/L 5 - 33 U/L [employer] Work Phone: Anion gap [Moles/Vol] 12 mmol/L 9 - 17 mmol/L [facility] Phone: AST [Catalytic activity/Vol] 14 U/L <32 [facility] Phone: Bilirubin [Mass/Vol] 0.19 mg/dL Low 0.30 - 1.20 mg/dL [facility] Phone: Calcium [Mass/Vol] 9.2 mg/dL 8.6 - 10. 4 mg/dL [facility] Phone: Chloride [Moles/Vol] 101 mmol/L 98 - 10 7 mmol/L [facility] Phone: CO2 [Moles/Vol] 25 mmol/L 20 - 31 mmol/L [facility] Phone: Creatinine [Mass/Vol] 0.55 mg/dL 0.50 - 0.90 mg/dL [facility] Phone: Free PSA/Total PSA [Mass fraction] 7.3 g/dL 6.4 - 8.3 g/dL [facility] Phone: GFR >60 >60 mL/min [employer] Phone: GFR Non- >60 >60 mL/min [facility] [facility] Phone: GFR/1.73 sq M.predicted MDRD (S/P/Bld) [Vol rate/Area] [facility] [facility] Phone: Comment on above: Average GFR for 40-4 9 years old: 99 mL/min/1.73sq m Chronic Kidney Disease: <60 mL/min/1.73sq m Kidney failure: <15 mL/min/1.73sq m eGFR calculated using average adult body mass. Additional eGFR calculator available at: http://www.[employer].Site9/multiple_crcl_2012.htm GFR/1.73 sq M.predicted MDRD (S/P/Bld) [Vol rate/Area] NOT REPORTED [facility] Phone: Glucose [Mass/Vol] 97 mg/dL 70 - 99 mg/dL [facility] [employer] Work Phone: Interpretation and review of laboratory results Abnormal [facility] [employer] Work Phone: Potassium [Moles/Vol] 4.2 mmol/L 3.7 - 5.3 mmol/L [facility] [employer] Work Phone: Sodium [Moles/Vol] 138 mmol/L 135 - 144 mmol/L [facility] [employer] Phone: Urea nitrogen (BldV) [Mass/Vol] 10 mg/dL 6 - 20 mg/dL [facility] [employer] Phone: Urea nitrogen/Creatinine (Bld) [Mass ratio] 18 [facility] [employer] Work Phone: [facility] [employer] Phone: FerritinOrdered By: Zayra Hart on 04-02-2021 Ferritin 33 ug/L 13 - 150 ug/L [facility] Work Phone: Iron And TIBCOrdered By: Alesia Hart on 04-02-2021 Interpretation and review of laboratory results Abnormal [facility] [employer] Phone: Iron [Mass/Vol] 20 ug/dL Low 37 - 145 ug/dL [facility] [employer] Work Phone: Iron Saturation 7 % Low 20 - 55 % [facility] Work Phone: TIBC 303 ug/dL 250 - 450 ug/dL [facility] [employer] Work Phone: UIBC 283 ug/dL 112 - 347 ug/dL [facility] [employer] Work Phone: No Panel InformationOrdered By: Zayra Hart on 04-02-2021 [facility] [employer] Work Phone: VC CONSULT FOLLOWUPon 2020 VC CONSULT FOLLOWUP Patient: SARAH HARRIS Exam Date: 03/12/2021 : 1975 Gender:F Ordering : DR GLENN LOUISE M.D. Admission #: [id number] Family : Order #: [id number] CLICK HERE TO VIEW EXAM RADIOLOGY REPORT [...] Glenn Louise MD on 03/12/2021 at 09:28 [facility] VC EXT VENOUS LT LIMITEDon 1 VC EXT VENOUS LT LIMITED Patient: SARAH HARRIS Exam Date: 03/12/2021 : 1975 Gender:F Ordering : DR GLENN LOUISE M.D. Admission #: [id number] Family : Order #: [id number] CLICK HERE TO VIEW EXAM RADIOLOGY REPORT [...] of reflux *Exam performed in accordance with [facility] practice guidelines- Peripheral venous ultrasound, August 24, 2009. 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 Admission #: [id number] Family : Order #: [id number] CLICK HERE TO VIEW EXAM RADIOLOGY REPORT PROCEDURE: VEIN CENTER ENDOVENOUS ABLATION FIRST VEIN LEFT ANTERIOR ACCESSORY SAPHENOUS VEIN COMPARISON: None. INDICATIONS: Pain co-occurrent and due to varicose veins of bilateral legs I83.813 OPERATIVE REPORT: The risks and benefits of the procedure had been previously discussed, and were rediscussed at length. Informed written consent was obtained by vt and Elliot Stratton assisted. Time out procedure was performed. The left [...] Glenn Louise MD on 03/06/2021 at 09:15 [facility] VC CONSULT FOLLOWUPon 2020 VC CONSULT FOLLOWUP Patient: SARAH HARRIS Exam Date: 02/26/2021 : 1975 Gender:F Ordering : DR GLENN LOUISE M.D. Admission #: [id number] Family : Order #: [id number] CLICK HERE TO VIEW EXAM RADIOLOGY REPORT [...] Louise MD on 02/26/2021 at 09:51 Normal [facility] VC EXT VENOUS RT LIMITEDon 0 02-26-2021 VC EXT VENOUS RT LIMITED Patient: SARAH HARRIS Exam Date: 02/26/2021 : 1975 Gender:F Ordering : DR GLENN LOUISE M.D. Admission #: [id number] Family : Order #: [id number] CLICK HERE TO VIEW EXAM RADIOLOGY REPORT [...] to thrombus. *Exam performed in accordance with [facility] practice [facility]- Peripheral venous ultrasound, August 24, 2009. CONCLUSION: Successful post ablation occlusion of the right anterior accessory saphenous vein with heat induced thrombus at the saphenofemoral junction Dictated by: Glenn Louise MD on 02/26/2021 at 09:34 Approved by: Glenn Louise MD on 02/26/2021 at 09:47 Normal [facility] VC ENDOVENOUS ABL 1ST V RTon 02-20-2021 VC ENDOVENOUS ABL 1ST V RT Patient: SARAH HARRIS Exam Date: 02/20/2021 : 1975 Gender:F Ordering : DR GLENN LOUISE M.D. Admission #: [id number] Family : Order #: [id number] CLICK HERE TO VIEW EXAM RADIOLOGY REPORT [...] Elias M.D. on 02/20/2021 at 14:40 Normal [facility] COMP CONSULTATIONon 01-23 VC COMP CONSULTATION Patient: SARAH HARRIS Exam Date: 01/23/2021 : 1975 Gender:F Ordering : PERI KEY Admission #: [id number] Family : Order #: [id number] CLICK HERE TO VIEW EXAM RADIOLOGY REPORT [...] likely arise from the multiple markedly dilated setter juice packaging machines veins.. PHYSICAL EXAM: The right leg demonstrates [...] accessory saphenous veins bilaterally. Laser therapy of setter juice packaging machines veins bilaterally. Microfoam chemical ablation of large [...] M.D. on 01/23/2021 at 15:45 Normal [facility] VC VENOUS REFLUX SOLOMON LMTon 0 01-23-2021 VC VENOUS REFLUX SOLOMON LMT Patient: SARAH HARRIS Exam Date: 01/23/2021 : 1975 Gender:F Ordering : PERI KEY Admission #: [id number] Family : DR GLENN LOUISE M.D. Order #: [id number] CLICK HERE TO VIEW EXAM RADIOLOGY REPORT [...] Normal Flow: Normal Preforator: Right mid calf [employer] 4.8mm with 1.4s of reflux and 5.6mm [...] echogenic thrombus visualized. Compressibility: Normal Flow: Normal Contracts Advisor: Left mid medial [employer] 6.0mm with 0.9s of reflux and proximal [...] saphenous varicosities bilaterally. 3. 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 4. Consultation for venous ablation is recommended. Dictated by: Ana Elias M.D. on 01/23/2021 at 14:56 Approved by: Ana Elias M.D. on 01/23/2021 at 14:58 Normal [facility] CBC Auto DifferentialOrdered By: Zayra Hart on 11-21-2020 Absolute Eos # 0.50 [facility] [employer] [facility] Work Phone: Absolute Immature Granulocyte NOT REPORTED [employer] Work Phone: Absolute Lymph # 2.60 [employer] [facility] Work Phone: Absolute [place] # 0.80 [employer] [facility] Work Phone: Basophils (Bld) [#/Vol] 0.10 10*3/uL [employer] Work Phone: Basophils/100 WBC (Bld) 1 % 0 - 2 % [employer] Phone: Differential Type NOT REPORTED [employer] Phone: Eosinophils/100 WBC (Bld) 4 % 0 - 5 % [employer] Phone: Hematocrit (Bld) [Volume fraction] 30.2 % Low 36 - 46 % [employer] Phone: Hemoglobin.gastrointes tinal spec 1 Ql (Stl) 9.2 g/dL Low 12.0 - 16.0 g/dL [employer] Phone: Immature Granulocytes NOT REPORTED 0 % [employer] Phone: Interpretation and review of laboratory results Abnormal [employer] Phone: Lymphocytes/100 WBC (Bld) 21 % 15 - 40 % [employer] Phone: MCH (RBC) [Entitic mass] 20.3 pg Low 26 - 34 pg [employer] Phone: MCHC (RBC) [Mass/Vol] 30.5 g/dL Low 31 - 37 g/dL [employer] Phone: MCV (RBC) [Entitic vol] 66.5 fL Low 80 - 100 fL [employer] Phone: Monocytes/100 WBC (Bld) 6 % 4 - 8 % [employer] Phone: Morphology Cole (Bld) [Interp] MODERATE ANISOCYTOSIS [facility] Work Phone: Morphology Cole (Bld) [Interp] MODERATE MICROCYTOSIS [facility] Work Phone: NRBC Automated NOT REPORTED per 100 WBC mobiDEOS [facility] Work Phone: Platelet distribution width (Bld) [Ratio] 19.2 % High 12.1 - 15.2 % [employer] Phone: Platelet Estimate NOT REPORTED [employer] Phone: Platelet mean volume (Bld) [Entitic vol] NOT REPORTED 6.0 - 12.0 fL [employer] Work Phone: Platelets (Bld) [#/Vol] 442 10*3/uL [employer] Work Phone: RBC (Bld) [#/Vol] 4.54 10*6/uL 4.0 - 5.2 m/uL [employer] Work Phone: RBC (Bld) [#/Vol] NOT REPORTED [employer] Work Phone: Segmented neutrophils/100 WBC (Bld) 68 % 47 - 75 % [employer] Work Phone: Segs [facility] 8.60 [facility] Work Phone: WBC (Bld) [#/Vol] 12.5 10*3/uL High [employer] Work Phone: WBC (Bld) [#/Vol] NOT REPORTED [employer] Phone: [employer] Work Phone: Iron And TIBCOrdered By: Alesia Hart on 11-21-2020 Interpretation and review of laboratory results Abnormal [employer] Phone: Iron [Mass/Vol] 19 ug/dL Low 37 - 145 ug/dL [employer] Work Phone: Iron Saturation 6 % Low 20 - 55 % [facility] Work Phone: TIBC 343 ug/dL 250 - 450 ug/dL [employer] Work Phone: UIBC 324 ug/dL 112 - 347 ug/dL [employer] Work Phone: [employer] Work Phone: COVID-19on 05-23-2020 SARS-CoV-2, Rapid Not Detected Not Detected [place], [place] Comment on above: Rapid NAAT: The [...] management decisions. Fact sheet for Healthcare Providers: https://www.fda.gov/media/310612/download Fact sheet for Patients: https://www.fda.gov/media/399816/download Methodology: Isothermal Nucleic Acid Amplification Source .THROAT [place], [place] Glucose, Whole Bloodon 05-23 Glucose [Mass/Vol] 139 mg/dL High 65 - 99 mg/dL [place], [place] Interpretation and review of laboratory results Abnormal [place] HCG Qualitative, Serumon hCG Qual Negative NEGATIVE [place], [place] Comment on above: Specimens with hCG l evels near the threshold of the test (25 mIU/mL) may give a negative or indeterminate result. In such cases, another test should be performed with a new specimen in 48-72 hours. If early is suspected clinically in this setting, correlation with quantitative serum b-hCG level is suggested. [facility] use of plasma for this test. This has not been cleared or approved by the U.S. Food and Drug Administration. The FDA has determined that such clearance is not necessary. Otheron 05-23-2020 SARS-CoV-2 [place] COVID-19on 05-09-2020 SARS-CoV-2, Rapid Not Detected Not Detected [place], [place] Comment on above: Rapid NAAT: The [...] management decisions. Fact sheet for Healthcare Providers: https://www.[facility].gov/media/876013/download Fact sheet for Patients: https://www.fda.gov/media/409963/download Methodology: Isothermal Nucleic Acid Amplification Source .THROAT [place], [place] LESS THAN 1 HOURon 2019 Radiology exam is complete. No Radiologist dictation. Please follow up with ordering provider. [place], [place] Glucose, Whole Bloodon 05-09 Glucose [Mass/Vol] 119 mg/dL High 65 - 99 mg/dL [place] Interpretation and review of laboratory results Abnormal [place] Otheron 05-09-2020 SARS-CoV-2 [place] COVID-19on 04-11-2020 SARS-CoV-2, Rapid Not Detected Not Detected [place] Comment on above: Rapid NAAT: The [...] management decisions. Fact sheet for Healthcare Providers: https://www.[facility].gov/media/506235/download Fact sheet for Patients: https://www.fda.gov/media/592664/download Methodology: Isothermal Nucleic Acid Amplification Source .[place]ROAT [place], [place] LESS THAN 1 HOURon 2019 Radiology exam is complete. No Radiologist dictation. Please follow up with ordering provider. [place] HCG Qualitative, Serumon hCG Qual Negative NEGATIVE [place] Comment on above: Specimens with hCG l evels near the threshold of the test (25 mIU/mL) may give a negative or indeterminate result. In such cases, another test should be performed with a new specimen in 48-72 hours. If early is suspected clinically in this setting, correlation with quantitative serum b-hCG level is suggested. [facility] use of plasma for this test. This has not been cleared or approved by the U.S. Food and Drug Administration. The FDA has determined that such clearance is not necessary. Otheron 04-11-2020 SARS-CoV-2 [place] COVID-19on 03-07-2020 SARS-CoV-2, Rapid Not Detected Not Detected [place], [place] Comment on above: Rapid NAAT: The [...] management decisions. Fact sheet for Healthcare Providers: https://www.fda.gov/media/194557/download Fact sheet for Patients: https://www.fda.gov/media/392164/download Methodology: Isothermal Nucleic Acid Amplification Source .[place]ROAT [place], [place] LESS THAN 1 HOURon 2019 Radiology exam is complete. No Radiologist dictation. Please follow up with ordering provider. [place], [place] Glucose, Whole Bloodon 03-07 Glucose [Mass/Vol] 117 mg/dL High 65 - 99 mg/dL [place], [place] Interpretation and review of laboratory results Abnormal [place] Otheron 03-07-2020 SARS-CoV-2 [place], [place] , Urineon 0 Beta HCG ( test) Ql (U) Negative NEGATIVE [place] DANIELLE DIGITAL SCREEN W OR WO C AD BILATERALon 11-16-2019 Stable mammogram. BI-RADS 1 - Negative, no evidence of malignancy. Normal interval followup in 12 months. OVERALL ASSESSMENT- NEGATIVE A letter of notification will be sent to the patient regarding the results. [place] HISTORY: Screening. TECHNIQUE: Craniocaudal and mediolateral oblique views of the breasts were obtained with digital mammography and CAD. COMPARISON: 02/25/2018, 10/30/2016 FINDINGS: Breasts are predominantly fatty density. No dominant masses, suspicious calcifications, or areas of architectural distortion are seen. [place], [place] David, Mhpn Incoming Radiant Results From [employer] - 11/16/2019 1:31 PM EDT HISTORY: Screening. [...] sent to the patient regarding the results. [place] Glucose, Whole BloodOrdered By: Darien Waters on 05-15-2019 Glucose [Mass/Vol] 122 mg/dL High 65 - 99 mg/dL [facility] Phone: Interpretation and review of laboratory results Abnormal [place] Phone: HCG Qualitative, SerumOrdere d By: Darien Waters on 05-15-2019 hCG Qual Negative NEGATIVE [facility] Phone: Comment on above: Specimens with hCG l evels near the threshold of the test (25 mIU/mL) may give a negative or indeterminate result. In such cases, another test should be performed with a new specimen in 48-72 hours. If early is suspected clinically in this setting, correlation with quantitative serum b-hCG level is suggested. [facility] has confirmed the use of plasma for this test. This has not been cleared or approved by the U.S. Food and Drug Administration. The FDA has determined that such clearance is not necessary. CBC Auto Differentialon 11-0 Basophils (Bld) [#/Vol] 0.00 10*3/uL [place] Basophils/100 WBC (Bld) 0 % 0 - 2 % [place] Differential Type YES [facility] [place] Eosinophils (Bld) [#/Vol] 0.40 10*3/uL [place] Eosinophils/100 WBC (Bld) 5 % 0 - 5 % [place] Erythrocyte distribution width (RBC) [Ratio] 16.7 % High 12.1 - 15.2 % [place] Hematocrit (Bld) [Volume fraction] 35.8 % Low 36 - 46 % [place] Hemoglobin (Bld) [Mass/Vol] 11.3 g/dL Low 12 - 16 g/dL [place] Interpretation and review of laboratory results Abnormal [place] Lymphocytes (Bld) [#/Vol] 1.50 10*3/uL [place] Lymphocytes/100 WBC (Bld) 16 % 15 - 40 % [place] MCH (RBC) [Entitic mass] 23.8 pg Low 26 - 34 pg [place] MCHC (RBC) [Mass/Vol] 31.6 g/dL 31 - 37 g/dL [place] MCV (RBC) [Entitic vol] 75.2 fL Low 80 - 100 fL [place] Monocytes (Bld) [#/Vol] 0.60 10*3/uL [place] Monocytes/100 WBC (Bld) 6 % 4 - 8 % [place] Platelet mean volume (Bld) [Entitic vol] NOT REPORTED 6 - 12 fL [place] Platelets (Bld) [#/Vol] 306 10*3/uL [place] Platelets (Bld) [#/Vol] NOT REPORTED [place] RBC (Bld) [#/Vol] 4.77 10*6/uL 4 - 5.2 m/uL [place] RBC morphology finding Nom (Bld) NOT REPORTED [place] Segmented neutrophils/100 WBC (Bld) 73 % 47 - 75 % [place] Segs Absolute 7.30 High [place] WBC (Bld) [#/Vol] 10.0 10*3/uL [place] WBC (Bld) [#/Vol] NOT REPORTED per 100 WBC [place] WBC Morphology NOT REPORTED [place] Hemoglobin A1Con 03-31-2019 Glucose [Mass/Vol] 160 mg/dL [place] Comment on above: The ADA and AACC rec ommend providing the estimated average glucose result to permit better patient understanding of their HBA1c result. HbA1c (Bld) [Mass fraction] 7.2 % High 4.8 - 5.9 % [place] Interpretation and review of laboratory results Abnormal [place] Lipid Panelon 03-31-2019 Cholesterol [Mass/Vol] 156 mg/dL <200 [place] Comment on above: Cholesterol Guidelines: <200 Desirable 200-240 Borderline >240 Undesirable Cholesterol in HDL [Mass/Vol] 43 mg/dL >40 [place] Comment on above: HDL Guidelines: <40 Undesirable 40-59 Borderline >59 Desirable Cholesterol in LDL [Mass/Vol] 84 mg/dL 0 - 130 mg/dL [place] Comment on above: LDL Guidelines: <100 Desirable 100-129 Near to/above Desirable 130-159 Borderline >159 Undesirable Direct (measured) LDL and calculated LDL are not interchangeable tests. Cholesterol in VLDL [Mass/Vol] NOT REPORTED 1 - 30 mg/dL [place] Cholesterol.total/Chol esterol in HDL [Mass ratio] 3.6 {ratio} <5 [place] Triglyceride [Mass/Vol] 146 mg/dL <150 [place] Comment on above: Triglyceride Guidelines: <150 Desirable 150-199 Borderline 200-499 High >499 Very high Based on AHA Guidelines for fasting triglyceride, February 2012. Otheron 03-31-2019 Immature granulocytes (Bld) [#/Vol] NOT REPORTED [place] Patient Fasting?on 9 Patient Fasting? yes [facility] [place] TSH with Reflexon 03-31-2019 TSH Qn 2.43 m[IU]/L [place] XR CHEST STANDARD (2 VW)on Nonacute two-view chest. [place] EXAM: XR CHEST (2 VW ) HISTORY: Reason for exam:->continued cough for 2 months with wheezing. COMPARISON: Portable chest from 01/27/2014. TECHNIQUE: Frontal and lateral films are done of the chest. FINDINGS: Trachea, mediastinum and heart size are unremarkable. No effusion or nodule or pneumothorax or infiltrate is noted. Diaphragm and bony elements are intact. [place] David, Mhpn Incoming Radiant Results From [employer] - 03/18/2019 12:02 PM EDT EXAM: XR CHEST (2 VW) HISTORY: Reason for exam:->continued cough for 2 months with wheezing. COMPARISON: Portable chest from 01/27/2014. TECHNIQUE: Frontal and lateral films are done of the chest. FINDINGS: Trachea, mediastinum and heart size are unremarkable. No effusion or nodule or pneumothorax or infiltrate is noted. Diaphragm and bony elements are intact. IMPRESSION: Nonacute two-view chest. [place] Vital Signs Date Time Vital Sign Value Performing Clinician Faci lity 06-18-2024 14:03-0500 Body height 167.6 cm Clemencia Sun MD Work Phone: [employer] [facility] 06-18-2024 14:03-0500 Body mass index (BMI) [Ratio] 52.29 kg/m2 Clemencia Sun MD Work Phone: [place] [facility] 06-18-2024 14:03-0500 Body temperature 98.6 [degF] Clemencia Sun MD Work Phone: [employer] [facility] 06-18-2024 14:03-0500 Body weight 146.97 kg Clemencia Sun MD Work Phone: [facility] 06-18-2024 14:03-0500 Diastolic blood pressure 95 mm[Hg] Clemencia Sun MD Work Phone: [facility] 06-18-2024 14:03-0500 Heart rate 92 /min Clemencia Sun MD Work Phone: [facility] 06-18-2024 14:03-0500 Respiratory rate 18 /min Clemencia Sun MD Work Phone: [facility] 06-18-2024 14:03-0500 SaO2% (BldA) [Mass fraction] 99 % Clemencia Sun MD Work Phone: [facility] 06-18-2024 14:03-0500 Systolic blood pressure 159 mm[Hg] Clemencia Sun MD Work Phone: [facility] 05-30-2024 12:26-0500 Body height 167.6 cm Clemencia Sun MD Work Phone: [facility] 05-30-2024 12:26-0500 Body mass index (BMI) [Ratio] 52.46 kg/m2 Clemencia Sun MD Work Phone: [facility] 05-30-2024 12:26-0500 Body temperature 98.29 [degF] Clemencia Sun MD Work Phone: [facility] 05-30-2024 12:26-0500 Body weight 147.42 kg Clemencia Sun MD Work Phone: [facility] 05-30-2024 12:26-0500 Diastolic blood pressure 106 mm[Hg] Clemencia Sun MD Work Phone: [facility] 05-30-2024 12:26-0500 Heart rate 98 /min Clemencia Sun MD Work Phone: [facility] 05-30-2024 12:26-0500 Respiratory rate 18 /min Clemencia Sun MD Work Phone: [facility] 05-30-2024 12:26-0500 SaO2% (BldA) [Mass fraction] 96 % Clemencia Sun MD Work Phone: [facility] 05-30-2024 12:26-0500 Systolic blood pressure 164 mm[Hg] Clemencia Sun MD Work Phone: [facility] 05-12-2024 15:00-0500 Diastolic blood pressure 97 mm[Hg] Clemencia Sun MD Work Phone: [facility] 05-12-2024 15:00-0500 Systolic blood pressure 136 mm[Hg] Clemencia Sun MD Work Phone: [facility] 05-12-2024 14:55-0500 Body height 167.6 cm Clemencia Sun MD Work Phone: [facility] 05-12-2024 14:55-0500 Body mass index (BMI) [Ratio] 53.91 kg/m2 Clemencia Sun MD Work Phone: [facility] 05-12-2024 14:55-0500 Body temperature 98.2 [degF] Clemencia Sun MD Work Phone: [facility] 05-12-2024 14:55-0500 Body weight 151.5 kg Clemencia Sun MD Work Phone: [facility] 05-12-2024 14:55-0500 Heart rate 82 /min Clemencia Sun MD Work Phone: [facility] 05-12-2024 14:55-0500 Respiratory rate 20 /min Clemencia Sun MD Work Phone: [facility] 05-12-2024 14:55-0500 SaO2% (BldA) [Mass fraction] 99 % Clemencia Sun MD Work Phone: [facility] 10-18-2024 15:32-0400 Body height 167.6 cm [facility] 03-17-2024 15:32-0400 Body mass index (BMI) [Ratio] 53.91 kg/m2 [facility] 03-17-2024 15:32-0400 [facility]-24-[facility]23 10:22-0400 Body temperature 98.29 [degF] Zayra Hart DO Work Phone: [facility] [employer] 12-24-2023 10:22-0400 Diastolic blood pressure 98 mm[Hg] Zayra Hart DO Work Phone: [facility] [employer] 12-24-2023 10:22-0400 Heart rate 94 /min Zayra Hart DO Work Phone: [facility] [employer] 12-24-2023 10:22-0400 Respiratory rate 16 /min Zayra Hart DO Work Phone: [facility] [employer] 12-24-2023 10:22-0400 SaO2% (BldA) [Mass fraction] 97 % Zayra Hart DO Work Phone: [facility] [employer] 12-24-2023 10:22-0400 Systolic blood pressure 124 mm[Hg] Zayra Hart DO Work Phone: [facility] [employer] 07-02-2023 09:50-0500 Diastolic blood pressure 80 mm[Hg] Elliot Zheng MD Work Phone: [employer] [facility] 07-02-2023 09:50-0500 Heart rate 85 /min Elliot Zheng MD Work Phone: [employer] [facility] 07-02-2023 09:50-0500 SaO2% (BldA) [Mass fraction] 93 % Elliot Zheng MD Work Phone: [employer] [facility] 07-02-2023 09:50-0500 Systolic blood pressure 129 mm[Hg] Elliot Zheng MD Work Phone: [facility] 07-02-2023 09:37-0500 Body temperature 97 [degF] Elliot Zheng MD Work Phone: [facility] 07-02-2023 09:37-0500 Respiratory rate 13 /min Elliot Zheng MD Work Phone: [facility] 07-02-2023 08:35-0500 Body height 167.6 cm Elliot Zheng MD Work Phone: [facility] 07-02-2023 08:35-0500 Body mass index (BMI) [Ratio] 59.24 kg/m2 Elliot Zheng MD Work Phone: [facility] 07-02-2023 08:35-0500 Body weight 166.47 kg Elliot Zheng MD Work Phone: [facility] 02-11-2023 15:30-0400 Heart rate 91 /min Elliot Zheng MD Work Phone: [facility] 02-11-2023 15:30-0400 SaO2% (BldA) [Mass fraction] 93 % Elliot Zheng MD Work Phone: [facility] 02-11-2023 15:20-0400 Diastolic blood pressure 67 mm[Hg] Elliot Zheng MD Work Phone: [facility] 02-11-2023 15:20-0400 Respiratory rate 16 /min Elliot Zheng MD Work Phone: [facility] 02-11-2023 15:20-0400 Systolic blood pressure 123 mm[Hg] Elliot Zheng MD Work Phone: [facility] 02-11-2023 15:00-0400 Body temperature 97.3 [degF] Elliot Zheng MD Work Phone: [facility] 02-11-2023 08:47-0400 Body height 167.6 cm Elliot Zheng MD Work Phone: [facility] 02-11-2023 08:47-0400 Body mass index (BMI) [Ratio] 59.24 kg/m2 Elliot Zheng MD Work Phone: [facility] 02-11-2023 08:47-0400 Body weight 166.47 kg Elliot Zheng MD Work Phone: [facility] 12-15-2022 13:27-0400 Body height 167.6 cm Keila Hemphill MD Work Phone: [facility] 12-15-2022 13:27-0400 Body mass index (BMI) [Ratio] 59.24 kg/m2 Keila Hemphill MD Work Phone: [facility] 12-15-2022 13:27-0400 Body weight 166.47 kg Keila Hemphill MD Work Phone: [facility] 10-23-2022 12:42-0400 Body height 167.6 cm Keila Hemphill MD Work Phone: [facility] 10-23-2022 12:42-0400 Body mass index (BMI) [Ratio] 59.39 kg/m2 Keila Hemphill MD Work Phone: [facility] 10-23-2022 12:42-0400 Body weight 166.9 kg Keila Hemphill MD Work Phone: [facility] 09-23-2022 13:06-0400 Diastolic blood pressure 65 mm[Hg] Kelley Shannon DO Work Phone: [facility] 09-23-2022 13:06-0400 Systolic blood pressure 114 mm[Hg] Kelley Shannon DO Work Phone: [facility] [employer] 09-23-2022 11:23-0400 SaO2% (BldA) [Mass fraction] 92 % Kelley Shannon DO Work Phone: [facility] 09-23-2022 11:15-0400 Heart rate 105 /min Kelley Shannon DO Work Phone: [facility] [employer] 09-23-2022 10:12-0400 Body temperature 99.39 [degF] Kelley [facility] 09-23-2022 10:12-0400 Respiratory rate 18 /min Kelley Shannon DO [facility] 09-09-2022 10:13-0400 Respiratory rate 16 /min Clemencia Gambino MD [facility] 09-09-2022 08:46-0400 Body temperature 98.29 [degF] Clemencia Gambino MD [facility] 09-09-2022 08:46-0400 Diastolic blood pressure 87 mm[Hg] Clemencia Gambino MD [facility] 09-09-2022 08:46-0400 Heart rate 78 /min Clemencia Gambino MD [facility] 09-09-2022 08:46-0400 SaO2% (BldA) [Mass fraction] 95 % Clemencia Gambino MD [facility] 09-09-2022 08:46-0400 Systolic blood pressure 141 mm[Hg] Clemencia Gambino MD [facility] 09-08-2022 06:34-0400 Body height 167.6 cm Clemencia Gambino MD [facility] 09-08-2022 06:34-0400 Body mass index (BMI) [Ratio] 59.4 kg/m2 Clemencia Gambino MD Work Phone: [facility] [employer] 09-08-2022 06:34-0400 Body weight 166.92 kg Clemencia Gambino MD Work Phone: [facility] 08-14-2022 12:51-0400 Body height 167.6 cm Keila Hemphill MD Work Phone: [facility] 08-14-2022 12:51-0400 Body mass index (BMI) [Ratio] 59.4 kg/m2 Keila Hemphill MD Work Phone: [facility] 08-14-2022 12:51-0400 Body weight 166.92 kg Keila Hemphill MD Work Phone: [facility] 08-13-2022 09:30-0400 Body height 167.6 cm Keila Hemphill MD Work Phone: [facility] 08-13-2022 09:30-0400 Body mass index (BMI) [Ratio] 59.4 kg/m2 Keila Hemphill MD Work Phone: [facility] 08-13-2022 09:30-0400 Body weight 166.92 kg Keila Hemphill MD Work Phone: [facility] 06-23-2022 07:40-0500 Body height 167.6 cm Keila Hemphill MD Work Phone: [facility] 06-23-2022 07:40-0500 Body mass index (BMI) [Ratio] 59.4 kg/m2 Keila Hemphill MD Work Phone: [facility] 06-23-2022 07:40-0500 Body weight 166.92 kg Keila Hemphill MD Work Phone: [facility] 12-20-2021 12:37-0400 Body temperature 98.71 [degF] Adrien Somers MD [facility] 12-20-2021 12:37-0400 Diastolic blood pressure 91 mm[Hg] Adrien Somers MD [facility] 12-20-2021 12:37-0400 Heart rate 88 /min Adrien Somers MD [facility] 12-20-2021 12:37-0400 Respiratory rate 18 /min Adrien Somers MD [facility] 12-20-2021 12:37-0400 SaO2% (BldA) [Mass fraction] 97 % Adrien Somers MD [facility] [employer] 12-20-2021 12:37-0400 Systolic blood pressure 133 mm[Hg] [facility] 12-10-2021 13:45-0400 Body temperature 97.2 [degF] Frank Pickering MD Work Phone: [facility] [employer] 12-10-2021 13:45-0400 Diastolic blood pressure 88 mm[Hg] Frank Pickering MD Work Phone: [facility] [employer] 12-10-2021 13:45-0400 Heart rate 78 /min Frank Pickering MD Work Phone: [facility] [employer] 12-10-2021 13:45-0400 Respiratory rate 18 /min Frank Pickering MD Work Phone: [facility] [employer] 12-10-2021 13:45-0400 SaO2% (BldA) [Mass fraction] 95 % Frank Pickering MD Work Phone: [facility] [employer] 12-10-2021 13:45-0400 Systolic blood pressure 158 mm[Hg] Frank Pickering MD Work Phone: [facility] [employer] 12-10-2021 09:41-0400 Body height 167.6 cm Frank Pickering MD Work Phone: [facility] [employer] 12-10-2021 09:41-0400 Body mass index (BMI) [Ratio] 57.14 kg/m2 Frank Pickering MD Work Phone: [facility] [employer] 12-10-2021 09:41-0400 Body weight 160.57 kg Frank Pickering MD Work Phone: [facility] [employer] 12-04-2021 10:31-0400 Body height 167.6 cm Frank Pickering MD Work Phone: [facility] [employer] 12-04-2021 10:31-0400 Body mass index (BMI) [Ratio] 56.78 kg/m2 Frank Pickering MD Work Phone: [employer] 12-04-2021 10:31-0400 Body temperature 98.6 [degF] Frank Pickering MD Work Phone: [employer] 12-04-2021 10:31-0400 Body weight 159.57 kg Frank Pickering MD Work Phone: [employer] 12-04-2021 10:31-0400 Diastolic blood pressure 104 mm[Hg] Frank Pickering MD Work Phone: [employer] Comment on above: Patient states she does not take BP med until lunchtime. 12-04-2021 10:31-0400 Heart rate 95 /min Frank Pickering MD Work Phone: [employer] 12-04-2021 10:31-0400 Respiratory rate 22 /min Frank Pickering MD Work Phone: [employer] 12-04-2021 10:31-0400 SaO2% (BldA) [Mass fraction] 98 % Frank Pickering MD Work Phone: [employer] 12-04-2021 10:31-0400 Systolic blood pressure 162 mm[Hg] Frank Pickering MD Work Phone: [employer] Comment on above: Patient states she does not take BP med until lunchtime. 06-01-2021 14:32-0500 Diastolic blood pressure 112 mm[Hg] Lorie Win MD Work Phone: [employer] 06-01-2021 14:32-0500 Systolic blood pressure 167 mm[Hg] Lorie Win MD Work Phone: [employer] 06-01-2021 14:30-0500 Body mass index (BMI) [Ratio] 58.68 kg/m2 Lorie Win MD Work Phone: [employer] 06-01-2021 14:30-0500 Body temperature 98.71 [degF] Lorie Win MD Work Phone: [facility] 06-01-2021 14:30-0500 Body weight 167.42 kg Lorie Win MD Work Phone: [facility] 06-01-2021 14:30-0500 Heart rate 102 /min Lorie Win MD Work Phone: [facility] 06-01-2021 14:30-0500 Respiratory rate 18 /min Lorie Win MD Work Phone: [facility] 06-01-2021 14:30-0500 SaO2% (BldA) [Mass fraction] 97 % Lorie Win MD Work Phone: [facility] 05-23-2020 10:17-0500 BP Diastolic 97 mm[Hg] [place] 05-23-2020 10:17-0500 BP Systolic 150 mm[Hg] [place] 05-23-2020 10:17-0500 Pulse (Heart Rate) 87 /min [place] 05-23-2020 10:17-0500 Pulse Oximetry 98 % [place] 05-23-2020 10:17-0500 Respiratory Rate 18 /min [place] 05-23-2020 09:46-0500 Body Temperature 97.59 [degF] [place] 05-23-2020 06:55-0500 BMI (Body Mass Index) 65.37 kg/m2 [place] 05-23-2020 06:55-0500 Body weight 183.71 kg [place] 05-23-2020 06:55-0500 Height 167.6 cm [place] 05-09-2020 13:17-0500 BP Diastolic 84 mm[Hg] [place] 05-09-2020 13:17-0500 BP Systolic 150 mm[Hg] [place] 05-09-2020 13:17-0500 Pulse (Heart Rate) 89 /min [facility], [place] 05-09-2020 13:17-0500 Pulse Oximetry 98 % [facility] 05-09-2020 13:17-0500 Respiratory Rate 16 /min [facility] 05-09-2020 12:51-0500 Body Temperature 98.91 [degF] [facility] 05-09-2020 11:15-0500 BMI (Body Mass Index) 65.55 kg/m2 [facility] 05-09-2020 11:15-0500 Body weight 184.21 kg [facility] 05-09-2020 11:15-0500 Height 167.6 cm [facility] 04-11-2020 15:43-0500 BP Diastolic 85 mm[Hg] [facility] 04-11-2020 15:43-0500 BP Systolic 145 mm[Hg] [facility] 04-11-2020 15:43-0500 Pulse (Heart Rate) 100 /min [facility] 04-11-2020 15:43-0500 Pulse Oximetry 96 % [facility] 04-11-2020 15:43-0500 Respiratory Rate 18 /min [facility] 04-11-2020 15:10-0500 Body Temperature 98.4 [degF] [facility] 04-11-2020 12:05-0500 BMI (Body Mass Index) 64.32 kg/m2 [facility] 04-11-2020 12:05-0500 Body weight 180.76 kg [facility] 04-11-2020 12:05-0500 Height 167.6 cm [facility] 03-07-2020 14:44-0400 BP Diastolic 107 mm[Hg] [facility] 03-07-2020 14:44-0400 BP Systolic 164 mm[Hg] [facility] 03-07-2020 14:44-0400 Pulse (Heart Rate) 95 /min [facility] 03-07-2020 14:42-0400 Pulse Oximetry 95 % [facility] 03-07-2020 14:42-0400 Respiratory Rate 20 /min [facility] 03-07-2020 14:07-0400 Body Temperature 99 [degF] [facility] 03-07-2020 12:34-0400 BMI (Body Mass Index) 65.69 kg/m2 [facility] 03-07-2020 12:34-0400 Body weight 184.61 kg [facility] 03-07-2020 12:34-0400 Height 167.6 cm [facility] 12-20-2019 18:08-0400 BP Diastolic 81 mm[Hg] [facility], [place] 12-20-2019 18:08-0400 BP Systolic 136 mm[Hg] [facility] 12-20-2019 18:08-0400 Pulse Oximetry 96 % [facility] 12-20-2019 18:02-0400 Pulse (Heart Rate) 98 /min [facility], [place] 12-20-2019 18:02-0400 Respiratory Rate 18 /min [facility] 12-20-2019 17:06-0400 BMI (Body Mass Index) 64.26 kg/m2 [facility] 12-20-2019 17:06-0400 Body Temperature 99.19 [degF] [facility] 12-20-2019 17:06-0400 Body weight 180.58 kg [facility], [place] 05-15-2019 10:13-0500 Diastolic blood pressure 72 mm[Hg] Darien Waters MD Work Phone: [employer] Work Phone: 05-15-2019 10:13-0500 Heart rate 87 /min Darien Waters MD Work Phone: [employer] Work Phone: 05-15-2019 10:13-0500 Respiratory rate 16 /min Darien Waters MD Work Phone: [employer] Work Phone: 05-15-2019 10:13-0500 SaO2% (BldA) [Mass fraction] 94 % Darien Waters MD Work Phone: [employer] Work Phone: 05-15-2019 10:13-0500 Systolic blood pressure 104 mm[Hg] Darien Waters MD Work Phone: [employer] Work Phone: 05-15-2019 09:42-0500 Body temperature 97.81 [degF] Darien Waters MD Work Phone: [employer] Work Phone: 05-15-2019 07:36-0500 Body height 167.6 cm Darien Waters MD Work Phone: [employer] Work Phone: 05-15-2019 07:36-0500 Body mass index (BMI) [Ratio] 62.46 kg/m2 Darien Waters MD Work Phone: [employer] Work Phone: 05-15-2019 07:36-0500 Body weight 175.54 kg Darien Waters MD Work Phone: [employer] Work Phone: 04-11-2019 12:54-0500 Pulse Oximetry 98 % [facility] [place], [place] Encounters Encounter Date Encounter Type Care Provider Facility Start: 12-25-2024 End: 12-25-2024 [facility] Start: 12-17-2024 End: 12-17-2024 [facility] Start: 12-14-2024 End: 12-14-2024 [facility] Start: 12-11-2024 End: 12-13-2024 [facility] Start: 12-11-2024 End: 12-13-2024 Subsequent hospital visit by physician [facility] MRI Comment on above: Chronic pain syndrom e Start: 11-21-2024 [facility] Start: 11-21-2024 End: 11-21-2024 [facility] Start: 11-17-2024 End: 11-17-2024 [facility] ZAYRA Humphrey [facility] Start: 11-17-2024 End: 11-17-2024 Subsequent hospital visit by physician Zayra Hart DO Work Phone: [facility] Comment on above: Type 2 diabetes ирина itus without complication, without long- term current use of insulin (HCC) Start: 10-13-2024 End: 10-13-2024 [facility] Start: 10-13-2024 End: 10-13-2024 [facility] Start: 09-29-2024 End: 09-29-2024 ambulatory Bing Rodriguez MD Facility:[facility] Start: 08-28-2024 End: 08-30-2024 ambulatory MAXIME Marrufo [facility] Start: 08-28-2024 End: 08-30-2024 Subsequent hospital visit by physician Devi Additional Xray At [facility] Radiology Comment on above: Pain, joint, shoulde r, right Start: 08-07-2024 End: 08-07-2024 ambulatory Bing Rodriguez MD Facility: [facility] Start: 06-18-2024 End: 06-18-2024 Emergency department patient visit Clemencia Sun MD Work Phone: [facility] Emergency Department Comment on above: Left knee pain, unsp ecified chronicity (Primary Dx) Start: 06-13-2024 ambulatory [facility] Start: 06-01-2024 End: 06-01-2024 ambulatory SELTIGIST F [facility] Start: 06-01-2024 End: 06-01-2024 Subsequent hospital visit by physician Anaid Jerry PT [facility] Comment on above: Arrived Start: 05-30-2024 End: 05-30-2024 Emergency department patient visit Clemencia Sun MD Work Phone: [facility] Emergency Department Comment on above: Greater trochanteric bursitis of right hip (Primary Dx); Accidental fall, initial encounter Start: 05-29-2024 End: 05-29-2024 [facility] Start: 05-29-2024 End: 05-29-2024 Subsequent hospital visit by physician Anaid Jerry PT [facility] Comment on above: Arrived Start: 05-18-2024 End: 05-18-2024 [facility] Start: 05-18-2024 End: 05-18-2024 Subsequent hospital visit by physician Anaid Jerry PT [facility] Comment on above: Arrived Start: 05-15-2024 End: 05-15-2024 [facility] Start: 05-15-2024 End: 05-15-2024 Subsequent hospital visit by physician Anaid Jerry PT [facility] Comment on above: Arrived Start: 05-12-2024 End: 05-12-2024 Emergency department patient visit Clemencia Sun MD Work Phone: [facility] Emergency Department Comment on above: Rash and other nonsp ecific skin eruption (Primary Dx) Start: 05-11-2024 End: 05-11-2024 Subsequent hospital visit by physician Anaid Jerry PT [facility] Start: 05-09-2024 End: 05-09-2024 [facility] Start: 05-09-2024 End: 05-09-2024 Subsequent hospital visit by physician Anaid Jerry PT [facility] Comment on above: Arrived Start: 05-04-2024 End: 05-04-2024 Subsequent hospital visit by physician Anaid Jerry PT [facility] Start: 05-01-2024 End: 05-01-2024 [facility] Start: 05-01-2024 End: 05-01-2024 Subsequent hospital visit by physician Anaid Jerry PT [facility] Comment on above: Arrived Start: 04-25-2024 End: 04-25-2024 [facility] Start: 04-25-2024 End: 04-25-2024 Subsequent hospital visit by physician Anaid Jerry PT [facility] Comment on above: Arrived Start: 04-20-2024 End: 04-20-2024 [facility] Start: 04-20-2024 End: 04-20-2024 Subsequent hospital visit by physician Anaid Jerry PT [facility] Comment on above: Arrived Start: 04-17-2024 End: 04-17-2024 [facility] Start: 04-17-2024 End: 04-17-2024 Subsequent hospital visit by physician Anaid Jerry PT [facility] Comment on above: Arrived Start: 04-14-2024 End: 04-14-2024 [facility] Start: 04-14-2024 End: 04-14-2024 Subsequent hospital visit by physician Anaid Jerry PT [facility] Comment on above: Arrived Start: 04-13-2024 End: 04-13-2024 Subsequent hospital visit by physician Anaid Jerry PT [facility] Start: 04-06-2024 End: 04-06-2024 ambulatory [facility] Start: 04-06-2024 End: 04-06-2024 Subsequent hospital visit by physician Anaid Jerry PT [facility] Comment on above: Arrived Start: 03-17-2024 End: 03-19-2024 ambulatory TINO SNÁCHEZ [facility] Start: 03-17-2024 End: 03-19-2024 Subsequent hospital visit by physician [facility] Mammography Room At [facility] Comment on above: Breast cancer screen ing by mammogram Start: 02-21-2024 End: 02-21-2024 ambulatory Bing Rodriguez MD Facility:[facility] Start: 02-14-2024 End: 02-14-2024 ambulatory [facility] Start: 02-02-2024 End: 02-02-2024 ambulatory [facility] Start: 01-24-2024 End: 01-24-2024 ambulatory Bing Rodriguez MD Facility: [facility] Start: 01-11-2024 End: 01-11-2024 Emergency department patient visit [facility] Start: 12-24-2023 End: 12-24-2023 Emergency department patient visit [facility] ED Comment on above: 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) Start: 10-19-2023 End: 10-22-2023 Evaluation and management of inpatient [facility] Start: 10-01-2023 End: 10-01-2023 ambulatory [facility] Start: 10-01-2023 Encounter for other preprocedural examination [facility] Start: 10-01-2023 End: 10-05-2023 ambulatory HOOD Bertrand [facility] Start: 08-10-2023 ambulatory [facility] Start: 08-10-2023 End: 08-10-2023 Subsequent hospital visit by physician Elliot Zheng MD Work Phone: [facility] Comment on above: Arrived Start: 08-02-2023 ambulatory KEILA HEMPHILL [facility] Start: 08-02-2023 End: 08-02-2023 Patient encounter procedure Keila Hemphill MD Work Phone: [facility] Medicine Comment on above: Osteoarthritis of renato th sacroiliac joints (Primary Dx) Start: 08-02-2023 [facility] Nathaniel [facility] Start: 07-02-2023 End: 07-02-2023 [facility] Start: 07-02-2023 End: 07-02-2023 Subsequent hospital visit by physician Elliot Zheng MD Work Phone: [facility] Comment on above: Spinal stenosis of l umbar region with neurogenic claudication Start: 06-29-2023 [facility] Start: 06-29-2023 Encounter for other preprocedural examination [facility] Start: 05-03-2023 End: 05-03-2023 Subsequent hospital visit by physician Elliot Zheng MD Work Phone: [facility] Comment on above: Arrived Start: 03-01-2023 End: 03-01-2023 Subsequent hospital visit by physician Elliot Zheng MD Work Phone: [facility] Comment on above: Arrived Start: 02-11-2023 End: 02-11-2023 Subsequent hospital visit by physician Elliot Zheng MD Work Phone: [facility] Comment on above: Sacroiliitis Start: 01-08-2023 End: 01-08-2023 Subsequent hospital visit by physician Elliot Zheng MD Work Phone: [facility] Radiology Comment on above: Arrived Start: 12-15-2022 ambulatory [facility] Start: 12-15-2022 End: 12-15-2022 Office outpatient visit 15 minutes Keila Hemphill MD Work Phone: [facility] Comment on above: Osteoarthritis of renato th sacroiliac joints (Primary Dx); Pain of both sacroiliac joints Start: 10-23-2022 End: 10-23-2022 Office outpatient visit 15 minutes Keila Hemphill MD Work Phone: [facility] Medicine Comment on above: Osteoarthritis of renato th sacroiliac joints (Primary Dx); Pain of both sacroiliac joints; Pain of left hip Start: 09-23-2022 End: 09-23-2022 Emergency department patient visit Kelley Yaron Shannon DO Work Phone: [facility] ED Comment on above: Pneumonia of both lo wer lobes due to infectious organism (Primary Dx) Start: 09-08-2022 End: 09-09-2022 ambulatory CLEMENCIA CAMPOS [facility] Start: 09-08-2022 End: 09-09-2022 Subsequent hospital visit by physician Clemencia Campos MD Work Phone: [address] Onc/Med Surg Comment on above: S/p SAVANNAH, BSO 08/29 06/22 (Primary Dx); Post endometrial ablation syndrome; Pelvic pain in female Start: 08-25-2022 End: 08-25-2022 Patient encounter status Zayra Hart DO Work Phone: [facility] Start: 08-25-2022 End: 08-27-2022 Subsequent hospital visit by physician Zayra Hart DO Work Phone: [facility] Comment on above: Pre-op chest exam Start: 08-17-2022 End: 08-17-2022 Subsequent hospital visit by physician Dayanna Springer PT [facility] Physical Therapy Comment on above: Arrived Start: 08-14-2022 ambulatory [facility] Start: 08-14-2022 End: 08-14-2022 Subsequent hospital visit by physician Keila Hemphill MD Work Phone: [facility] Procedure Images Comment on above: Arrived Start: 08-14-2022 End: 08-14-2022 Patient encounter procedure Keila Hemphill MD Work Phone: [facility] Comment on above: Osteoarthritis of renato th sacroiliac joints (Primary Dx); Pain of both sacroiliac joints Start: 08-13-2022 End: 08-13-2022 Subsequent hospital visit by physician Sarah Tony [facility] Comment on above: Arrived Start: 08-13-2022 End: 08-13-2022 Office outpatient visit 15 minutes Keila Hemphill MD Work Phone: [facility] Medicine Comment on above: [...] 07-30-2022 Subsequent hospital visit by physician [facility]ayra Hart DO [facility] Comment on above: Left ovarian cyst [...] 07-20-2022 Subsequent hospital visit by physician Dayanna Springer PT [facility] Comment on above: Arrived Start: 06-23-2022 End: 06-23-2022 Office outpatient new 45 minutes Keila Hemphill MD Work Phone: [facility] Medicine Comment on above: Osteoarthritis of renato th sacroiliac joints (Primary Dx); Pain of both sacroiliac joints; Other spondylosis with radiculopathy, lumbar region; Spinal stenosis, lumbar region with neurogenic claudication Start: 2022 ambulatory INC[facility] Start: 06-10-2022 End: 06-12-2022 Subsequent hospital visit by physician [facility] Additional Xray At [facility] Radiology Comment on above: Low back pain, unspe cified back pain laterality, unspecified chronicity, unspecified whether sciatica present Start: 05-18-2022 End: 05-20-2022 Subsequent hospital visit by physician [facility] Mri Scanner [facility] MRI Comment on above: Chronic bilateral lo w back pain with bilateral sciatica Start: 04-06-2022 End: 04-06-2022 Subsequent hospital visit by physician Dayanna Springer PT [facility] Comment on above: Arrived Start: 04-01-2022 End: 04-01-2022 Subsequent hospital visit by physician Jenn Carrasco [facility] Comment on above: Arrived Start: 03-26-2022 End: 03-26-2022 Subsequent hospital visit by physician Zayra Hart DO Work Phone: [facility] Laboratory Start: 03-24-2022 End: 03-24-2022 Subsequent hospital [...] Start: 01-28-2022 End: 01-28-2022 Patient encounter procedure [facility] [address] Start: 01-07-2022 End: 01-07-2022 Subsequent hospital visit by physician Zayra Hart DO Work Phone: [facility] Start: 12-20-2021 End: 12-20-2021 Emergency department patient visit Adrien Somers MD [facility] ED Comment on above: Rash (Primary Dx); Allergic reaction, initial encounter Start: 12-10-2021 End: 12-10-2021 Subsequent hospital visit by physician Frank Pickering MD Work Phone: [facility] OR Comment on above: Dysmenorrhea Start: 12-04-2021 End: 12-08-2021 Patient encounter status Frank Pickering MD Work Phone: [facility] PRE ADMIT Start: 12-04-2021 End: 12-08-2021 Subsequent hospital visit by physician Frank Pickering MD Work Phone: [facility] PRE ADMIT Comment on above: Pre-op testing Start: 09-18-2021 End: 09-18-2021 Subsequent hospital visit by physician Zayra Hart DO Work Phone: [facility] Comment on above: Type 2 diabetes ирина itus without complication, without long- term current use of insulin (HCC); Encounter for hepatitis C screening test for low risk patient; Iron deficiency anemia due to chronic blood loss Start: 06-01-2021 End: 06-01-2021 Emergency department patient visit Lorie Win MD Work Phone: [facility] ED Comment on above: Adverse effect of dr domínguez, initial encounter (Primary Dx) Start: 04-02-2021 End: 04-02-2021 Subsequent hospital visit by physician Zayra Hart DO Work Phone: [facility] Comment on above: Iron deficiency anem ia due to chronic blood loss; Type 2 diabetes mellitus without complication, without long-term current use of insulin (HCC) Start: 04-02-2021 End: 04-04-2021 Subsequent hospital visit by physician Zayra Hart DO Work Phone: [facility] Start: 03-12-2021 End: 03-13-[address] DOCTOR [...] 11-21-2020 Subsequent hospital visit by physician Zayra Hart DO Work Phone: [facility] Comment on above: Iron deficiency anem ia due to chronic blood loss Start: 05-23-2020 End: 05-23-2020 Subsequent hospital visit by physician Sukhdev Galeano Work Phone: [facility] OR Start: 05-23-2020 End: 05-23-2020 Subsequent hospital visit by physician Devi Aleman Pat Screening Schedule [facility] PRE ADMIT Comment on above: Arrived Start: 05-09-2020 End: 05-09-2020 Subsequent hospital visit by physician Sukhdev Galeano Work Phone: [facility] OR Start: 05-09-2020 [...] 04-02-2020 Subsequent hospital visit by physician Zayra CHENE[facility] Laboratory Comment on above: Viral URI with cough Start: 03-07-2020 End: 03-07-2020 Subsequent hospital visit by physician Devi Aleman Pat Screening Schedule [facility] PRE ADMIT Start: 03-07-2020 End: 03-07-2020 Subsequent hospital visit by physician Sukhdev Galeano Work Phone: [facility] OR Start: 12-20-2019 End: 12-20-2019 Emergency department patient visit Angeloclaire Yang Dino Work Phone: [facility] ED Comment on above: Acute right-sided lo w back pain with right-sided sciatica (Primary Dx) Start: 11-14-2019 End: 11-16-2019 Subsequent hospital visit by physician Devi Mammography Room [facility] Mammography Comment on above: Breast cancer screen ing by mammogram Start: 05-18-2019 End: 05-20-2019 Subsequent hospital visit by physician Devi Gen Radiologist [facility] Radiology Comment on above: Arrived Start: 05-15-2019 [...] visit by physician Devi Dig Rad 1 [facility] Radiology Comment on above: Acute bronchitis, un specified organism Procedures Date Procedure Procedure Detail Performing Clinician Start: 11-17-2024 Urine albumin quantitative Zayra Hart DO Work Phone: Start: 08-28-2024 Radex shoulder compl ete minimum 2 views Maxime Reeder DO Work Phone: Start: 06-18-2024 Radiologic exam knee complete 4/more views Clemencia Sun MD Work Phone: Start: 05-30-2024 Radex hip unilateral with pelvis 2-3 views Clemencia Sun MD Work Phone: Start: 12-24-2023 Radiologic examinati on knee 3 [...] Keila Hemphill MD Work Phone: Start: 10-23-2022 Arthrocentesis aspir &/inj major jt/bursa w/o us Keila Hemphill MD Work Phone: Start: 09-23-2022 Radiologic exam ches t single view Kelley Shannon DO Work Phone: Start: 09-23-2022 Ct abdomen & pelvis w/contrast material Kelley Marrufo Shannon DO Work Phone: Start: 09-23-2022 Urinalysis microscopic only Kelley Marrufo Shannon DO Work Phone: Start: 09-23-2022 Urnls dip stick/tabl et rgnt auto w/o microscopy Kelley Marrufo Shannon DO Work Phone: Start: 09-23-2022 Comprehensive metabo lic panel Kelley Marrufo Shannon DO Work Phone: Start: 09-09-2022 Glucose [...] w/le ast 12 lds w/i&r Tino Sánchez PA-C Work Phone: Start: 08-14-2022 US Unspecified body region Keila Hemphill MD Work Phone: Start: 08-14-2022 Arthrocentesis aspir &/inj major jt/bursa w/us Jose London ATC Start: 07-30-2022 Gonadotropin follicl e stimulating hormone Frank Pickering MD Work Phone: Start: 06-23-2022 Injection single/associate marketing manager trigger point 1/2 muscles Jose London ATC Start: 06-10-2022 Radex spine lumbscrl compl w/bending views min 6 Elliot Zheng MD Work Phone: Start: 05-18-2022 Mri spinal canal lum bar w/o contrast material Zayra Humphrey Hart DO Work Phone: Start: 03-26-2022 Basic metabolic [...] Start: 09-18-2021 Comprehensive metabo lic panel Zayra Yin Yonley DO Work Phone: Start: 09-18-2021 Lipid panel Zayra Yin Yostephen DO Work Phone: Start: 09-18-2021 PATIENT FASTING? Everton Hart DO Work Phone: Start: 09-18-2021 Urine albumin quantitative Zayra Hart DO Work Phone: Start: 03-02-2021 Comprehensive metabo lic panel Zayra Hart DO Work Phone: Start: 02-19-2021 Microscopic observat ion [Identifier] in Cervix by Cyto stain Frank Pickering MD Work Phone: Start: 12-19-2020 Colonoscopy Zayra mitchell DO Work Phone: Start: 11-21-2020 Iron binding capacity Yaron Hart DO Work Phone: Start: 05-23-2020 Gonadotropin chorion [...] Capulong Work Phone: Start: 04-11-2020 COVID-19 Jonathon Bellou reghany Work Phone: Start: 03-07-2020 Fluoroscopy up to 1 hour physician/qhp time Sukhdev Galeano Work Phone: Start: 03-07-2020 Gluc bld gluc mntr d ev cleared fda spec home use Sukhdev Galeano Work Phone: Start: 03-07-2020 Urine test visual color cmprsn meths Sukhdev Galeano Work Phone: Start: 03-07-2020 COVID-19 Jonathon Alejandrina jay Work Phone: Start: 11-14-2019 Screening mammograph y bi 2-view breast inc cad Zayra Hart Work Phone: Start: 05-18-2019 Radiologic exam upr gi trc single contrast study Darien Waters MD Work Phone: Start: 05-15-2019 End: 05-15-2019 Gonadotropin chorionic qualitative Darien Waters MD Work Phone: Start: 04-11-2019 NEBULIZER TX INTERMITTENT Ramana Back Work Phone: Start: 03-31-2019 Assay of thyroid stimulating hormone tsh Zayra Hart Work Phone: Start: 03-31-2019 Blood count complete auto&auto difrntl wbc Zayra Hart Work Phone: Start: 03-31-2019 Hemoglobin glycosylated a1c Zayra Hart Work Phone: Start: 03-31-2019 Lipid panel Zayra Hart Work Phone: Start: 03-31-2019 PATIENT FASTING? Everton Hart Work Phone: Start: 03-18-2019 Radiologic exam ches t 2 views Selena Anderson Work Phone: Plan of Treatment Date Care Activity Detail Author Start: 12-19-2030 Screening for malignant neoplasm of colon [facility] [employer] Start: 03-17-2026 Screening for malignant neoplasm of breast Breast cancer screen [facility] [employer] Start: 11-17-2025 Depression Monitoring Depression Monitoring [facility] Start: 11-17-2025 Diabetic foot examination Diabetic foot exam [facility] Start: 11-17-2025 Hemoglobin A1c measurement A1C test (Diabetic or Prediabetic) [facility] [employer] Start: 11-17-2025 Urine screening for protein Diabetic Alb to Cr ratio (uACR) test [facility] [employer] Start: 07-19-2025 Depression Monitoring Depression Monitoring [facility] [employer] Start: 02-20-2025 End: 02-20-2025 Patient encounter procedure 02/20/2025 9:40 AM EDT Office Visit [facility] [address] [place] [address] Zayra Hart DO [address] [place] [address] Follow-up disposition: Return in about 3 months (around 02/17/2025) for DM. [facility] Comment on above: Follow-up disposition: Return in about 3 months (around 02/17/2025) for DM. Start: 02-01-2025 GFR test (Diabetes, CKD 3-4, OR last GFR 15-59) GFR test (Diabetes, CKD 3-4, OR last GFR 15-59) [facility] Start: 02-01-2025 Hemoglobin A1c measurement A1C test (Diabetic or Prediabetic) [facility] Start: 02-01-2025 [facility] Start: 01-03-2025 End: 01-03-2025 Patient encounter procedure 01/03/2025 3:30 PM EDT Office Visit [facility] [address] [facility] [facility] [id number] [place] [id number] Tino Sánchez PA-C [address] [place] [address] [address] [place] [address] 1 year f/u December 2024 (needs last appt d/t working and he has to drive her) [facility] Comment on above: 1 year f/u December 2024 (needs last appt d/t working and he has to drive her) Start: 12-29-2024 Influenza vaccination [facility] [employer] Start: 12-03-2024 Screening for malignant neoplasm of breast [facility] Start: 10-21-2024 GFR test (Diabetes, CKD 3-4, OR last GFR 15-59) GFR test (Diabetes, CKD 3-4, OR last GFR 15-59) [facility] Start: 09-30-2024 Hemoglobin A1c measurement A1C test (Diabetic or Prediabetic) [facility] [employer] Start: 06-14-2024 Depression Monitoring Depression Monitoring [facility] Start: 06-14-2024 Diabetic foot examination Diabetic foot exam [facility] Start: 06-01-2024 End: 06-01-2024 Patient encounter procedure [facility] Comment on above: 15 of 30 (90shared w/OT/PT/SP)Lumbar spi ne- [facility] BC[employer]- 1 of 30 (90sha red w/OT/PT/SP)Lumbar spine- [facility] Start: 05-29-2024 End: 05-29-2024 Patient encounter procedure [facility] Comment on above: 14 of 30 (90shared w/OT/PT/SP)Lumbar spi ne- [facility] Start: 05-18-2024 End: 05-18-2024 Patient encounter procedure [facility] Comment on above: 13 of 30 (90shared w/OT/PT/SP)Lumbar spi ne- [facility] Start: 05-15-2024 End: 05-15-2024 Patient encounter procedure [facility] Comment on above: 12 of 30 (90shared w/OT/PT/SP)Lumbar spi ne- [facility] Start: 05-11-2024 End: 05-11-2024 Patient encounter procedure 05/11/2024 10:30 AM EST Appointment [facility] [address] [facility] [place] [address] Anaid Jerry, PT 12 of 30 (90shared w/OT/PT/SP)Lumbar spine- [facility] Comment on above: 12 of 30 (90shared w/OT/PT/SP)Lumbar spi ne- [facility] Start: 05-09-2024 End: 05-09-2024 Patient encounter procedure 05/09/2024 11:00 AM EST Appointment [facility] [address] [facility] [place] [address] Anaid Jerry, PT 11 of 30 (90shared w/OT/PT/SP)[facility] Comment on above: 11 of 30 (90shared w/OT/PT/SP)Lumbar spi ne- [facility] Start: 05-04-2024 End: 05-04-2024 Patient encounter procedure [facility] Comment on above: 10 of 30 (90shared w/OT/PT/SP)Lumbar spi ne- [facility] Start: 05-01-2024 End: 05-01-2024 Patient encounter procedure [facility] Comment on above: 9 of 30 (90shared w/OT/PT/SP)Lumbar spin e- [facility] Start: 04-25-2024 End: 04-25-2024 Patient encounter procedure [facility] Comment on above: 8 of 30 (90shared w/OT/PT/SP)Lumbar spin e- [facility] Start: 04-20-2024 End: 04-20-2024 Patient encounter procedure [facility] Comment on above: 8 of 30 (90shared w/OT/PT/SP)Lumbar spin e- [facility] [facility] 7 of 30 (90shared w/ OT/PT/SP)Lumbar spine- [facility] Start: 04-17-2024 End: 04-17-2024 Patient encounter procedure [facility] Comment on above: 7 of 30 (90shared w/OT/PT/SP)Lumbar spin e- [facility] 6 of 30 (90shared w/ OT/PT/SP)Lumbar spine- [facility] Start: 04-14-2024 End: 04-14-2024 Patient encounter procedure 04/14/2024 9:30 AM EST Appointment [facility] [address] [place] [address] Anaid Jerry, PT 6 of 30 (90shared w/OT/PT/SP)Lumbar spine- [facility] Comment on above: 6 of 30 (90shared w/OT/PT/SP)Lumbar spin e- [facility] Start: 04-13-2024 End: 04-13-2024 Patient encounter procedure 04/13/2024 9:30 AM EST Appointment [facility] [address] [place] [address] Anaid Jerry, PT 5 of 30 (90shared w/OT/PT/SP)Lumbar spine- [facility] Springerue [facility] Comment on above: 5 of 30 (90shared w/OT/PT/SP)Lumbar spin e- [facility] Start: 02-20-2024 Screening for malignant neoplasm of cervix [facility] Start: 02-02-2024 End: 02-02-2024 Patient encounter procedure 02/02/2024 8:00 AM EDT Office Visit [facility] [address] [facility] [place] [phone] Zayra Hart DO [address] [place] [phone] 3 month f/u [facility] Comment on above: 3 month f/u Start: 01-30-2024 COVID-19 Vaccine ( season) COVID[facility]19 [facility] ( [facility] Start: 01-30-2024 COVID-19 Vaccine ( season) COVID-19 Vaccine ( season) [facility] Start: 01-05-2024 End: 01-05-2024 Patient encounter procedure 01/05/2024 2:00 PM EDT Office Visit [facility] [facility] [address] [place] [address] Tino Sánchez PA-C [facility] [address] [place] [address] Follow-up/ med refill [facility] Comment on above: Follow-up/ med refill Start: 12-30-2023 Influenza vaccination Flu vaccine (#1) [facility] Start: 11-09-2023 End: 11-09-2023 Patient encounter procedure 11/09/2023 12:00 PM EDT Office Visit [facility] [address] [place] [address] Keila Hemphill MD [address] [place] [address] [facility] Start: 09-24-2023 GFR test (Diabetes, CKD 3-4, OR last GFR 15-59) GFR test (Diabetes, CKD 3-4, OR last GFR 15-59) [facility] Start: 09-09-2023 GFR test (Diabetes, CKD 3-4, OR last GFR 15-59) GFR test (Diabetes, CKD 3-4, OR last GFR 15-59) [facility] Start: 07-27-2023 GFR test (Diabetes, CKD 3-4, OR last GFR 15-59) GFR test (Diabetes, CKD 3-4, OR last GFR 15-59) [facility] Start: 07-02-2023 End: 07-02-2023 Injection single/associate marketing manager trigger point 1/2 muscles INJECTION MUSCLE TRIGGER POINT 1 OR 2 MUSCLES Spinal stenosis of lumbar region with neurogenic claudication 07/02/2023 9:25 AM EST [facility] Start: 05-14-2023 Diabetic retinal exam Diabetic retinal exam [facility] Start: 05-14-2023 Glaucoma screening Diabetic retinal exam [facility] Start: 05-13-2023 Influenza vaccination [facility] Comment on above: Postponed from 12/29/2021 (Patient Refus ed) Postponed from 12/29 (Patient Refused) Start: 03-26-2023 GFR test (Diabetes, CKD 3-4, OR last GFR 15-59) GFR test (Diabetes, CKD 3-4, OR last GFR 15-59) [facility] Start: 02-11-2023 End: 02-11-2023 Arthrodesis sacroiliac joint percutaneous ARTHRODESIS SACROILIAC JOINT MINIMALLY INVASIVE W/ TRANSFIXING DEVICE Sacroiliitis 02/11/2023 11:58 AM EDT [facility] Start: 02-11-2023 End: 02-11-2023 Fluoroscopy up to 1 hour physician/qhp time FLUOROSCOPY IN OR Sacroiliitis 02/11/2023 11:58 AM EDT [facility] Start: 01-29-2023 COVID-19 VACCINE ( season) COVID-19 VACCINE ( season) [facility] Start: 01-29-2023 [facility] Start: 01-21-2023 Hemoglobin A1c measurement A1C test (Diabetic or Prediabetic) [facility] Start: 12-15-2022 End: 12-15-2022 Patient encounter procedure 12/15/2022 10:30 AM EDT Office Visit [facility] [address] [place] [address] Keila Hemphill MD [address] [place] [address] [facility] [place] [facility] Start: 10-15-2022 End: 10-15-2022 Patient encounter procedure 10/15/2022 Office Visit Gynecologic Oncology Tino Sánchez PA-C [address] [place] [address] [place] [address] [facility] Start: 09-25-2022 End: 09-25-2022 Patient encounter procedure 09/25/2022 Office Visit Orthopaedics Keila Hemphill MD [address] [facility] [place] [address] [place] [address] [facility] Start: 09-21-2022 End: 09-21-2022 Patient encounter procedure 09/21/2022 Office Visit Gynecologic Oncology Tino Sánchez PA-C [address] [place] [address] [place] [address] [facility] Start: 09-21-2022 End: 09-21-2022 Patient encounter procedure 09/21/2022 Office Visit Orthopaedics Keila Hemphill MD [address] [facility] [place] [address] [place] [address] [facility] Start: 09-18-2022 Creatinine measurement Creatinine [facility] Start: 09-18-2022 Depression Monitoring Depression Monitoring [facility] Start: 09-18-2022 Hemoglobin A1c measurement A1C test (Diabetic or Prediabetic) [facility] Start: 09-18-2022 Lipid panel Lipids [facility] Start: 09-18-2022 Potassium [Moles/volume] in Serum or Plasma Potassium [facility] Start: 09-18-2022 Urine screening for protein [facility] [employer] Start: 09-08-2022 End: 09-08-2022 Admission to same day surgery center 09/08/2022 Surgery IP Unit Clemencia Campos MD [address] [place] [address] XI ROBOTIC LAPAROSCOPIC TOTAL HYSTERECTOMY, BSO, POSSIBLE EXPLORATORY LAPAROTOMY, OTHER NECESSARY PROCEDURES [facility] Comment on above: XI ROBOTIC LAPAROSCOPIC TOTAL HYSTERECTO MY, BSO, POSSIBLE EXPLORATORY LAPAROTOMY, OTHER NECESSARY PROCEDURES Start: 09-08-2022 End: 09-08-2022 Laps total hysterect 250 gm/< w/rmvl tube/ovary HYSTERECTOMY ABDOMINAL LAPAROSCOPIC ROBOTIC Post endometrial ablation syndrome Pelvic pain in female 09/08/2022 7:30 AM EDT [facility] Start: 09-08-2022 Subsequent hospital visit by physician 09/08/2022 Hospital Encounter IP Unit Clemencia Campos MD [address] [facility] [address], [address] [place] [address] [facility] Start: 08-19-2022 End: 08-19-2022 Patient encounter procedure 08/19/2022 Appointment Physical Therapy Sarah Tony [facility] Start: 08-17-2022 End: 08-17-2022 Patient encounter procedure 08/17/2022 Appointment Physical Therapy Dayanna Springer PT [facility] Start: 08-13-2022 End: 08-13-2022 Patient [...] Office Visit Gynecologic Oncology Clemencia Campos MD [address] [facility] [address], [address] [place] [address] [facility] Start: 08-04-2022 End: 08-04-2022 Patient encounter procedure 08/04/2022 Appointment Physical Therapy Sarah Tony [facility] Start: 07-31-2022 End: 07-31-2022 Patient encounter procedure 07/31/2022 Appointment Physical Therapy Dayanna Springer, PT [facility] Start: 07-30-2022 End: 07-30-2022 Patient encounter procedure [facility] Start: 07-28-2022 End: 07-28-2022 Patient encounter procedure 07/28/2022 Appointment Physical Dayanna Hurley, PT [facility] Start: 07-22-2022 End: 07-22-2022 Patient encounter procedure 07/22/2022 Appointment Physical Therapy Dayanna Springer, PT [facility] Start: 04-13-2022 Creatinine measurement Creatinine monitoring [facility] Start: 04-13-2022 Potassium monitoring Potassium monitoring [facility] Start: 04-07-2022 End: 04-07-2022 Admission to same day surgery center 04/07/2022 Surgery General Surgery Goldie Ace I, DO [address] [facility] [address] [place] [phone] HERNIA UMBILICAL REPAIR LAPAROSCOPIC ROBOTIC [facility] [place] Comment on above: HERNIA UMBILICAL REPAIR LAPAROSCOPIC RAINA OTIC Start: 04-07-2022 End: 04-07-2022 Rpr umbilical hrna 5 yrs/> reducible [facility] Start: 04-07-2022 Subsequent hospital visit by physician TONG [place] Comment on above: Pre-op testing (Primary Dx) Start: 04-02-2022 End: 04-02-2022 Patient encounter procedure 04/02/2022 Appointment Physical Therapy Dayanna Springer, PT [facility] Start: 04-02-2022 Diabetic foot examination Diabetic foot exam [facility] Start: 04-02-2022 Hemoglobin A1c measurement A1C test (Diabetic or Prediabetic) [facility] Start: 04-02-2022 Influenza vaccination [facility] Comment on above: Postponed from 01/29/2021 (Patient Refus ed) Postponed from 01/29 (Patient Refused) Start: 03-31-2022 End: 03-31-2022 Patient encounter procedure 03/31/2022 Appointment Physical Therapy Dayanna Springer, PT [facility] Start: 03-27-2022 End: 03-27-2022 Patient encounter procedure 03/27/2022 Appointment Physical Therapy Jenn Carrasco [facility] Start: 03-26-2022 End: 03-26-2022 Patient encounter procedure 03/26/2022 Appointment Physical Therapy Jenn Carrasco [facility] Start: 03-24-2022 End: 03-24-2022 Patient encounter procedure 03/24/2022 Appointment Physical Therapy Dayanna Springer, PT [facility] Start: 03-19-2022 End: 03-19-2022 Patient encounter procedure 03/19/2022 Appointment Physical Therapy Jenn Carrasco [facility] Start: 03-17-2022 End: 03-17-2022 Patient encounter procedure 03/17/2022 Appointment Physical Therapy Dayanna Springer, PT [facility] Start: 03-12-2022 End: 03-12-2022 Patient encounter procedure 03/12/2022 Appointment Physical Therapy Jenn Carrasco [facility] Start: 03-11-2022 End: 03-11-2022 Patient encounter procedure 03/11/2022 Office Visit General Surgery Goldie Ace I, DO [address] [address] [facility] Start: 03-10-2022 End: 03-10-2022 Patient encounter procedure 03/10/2022 Appointment Physical Therapy Hanna Lawler PTA [facility] Start: 03-05-2022 End: 03-05-2022 Patient encounter procedure 03/05/2022 Appointment Physical Therapy Jenn Carrasco [facility] Start: 03-05-2022 Subsequent hospital visit by physician 03/05/2022 Hospital Encounter Physical Therapy Jenn Carrasco [facility] Start: 03-03-2022 End: 03-03-2022 Patient encounter procedure 03/03/2022 Appointment Physical Therapy Dayanna Springer, PT [facility] Start: 03-02-2022 Creatinine measurement Creatinine monitoring [facility] Phone: Start: 10-03-2022 Potassium monitoring Potassium monitoring [facility] Phone: Start: 02-26-2022 End: 02-26-2022 Patient encounter procedure 02/26/2022 Appointment Physical Therapy Jenn Carrasco [facility] Start: 01-29-2022 Influenza vaccination [facility] Start: 01-28-2022 Lipid screen Lipid screen [facility] [place], [place] Start: 01-28-2022 [facility] Work Phone: Start: 12-29-2021 Influenza vaccination Flu vaccine (#1) [facility] Start: 12-24-2021 End: 12-24-2021 Patient encounter procedure 12/24/2021 Office Visit Obstetrics and Gynecology Frank Pickering MD [address] [place] [address] [facility] Start: 12-10-2021 End: 12-10-2021 Admission to same day surgery center 12/10/2021 Surgery IP Unit Frank Pickering MD [address] [place] [address] DILATATION AND CURETTAGE HYSTEROSCOPY CAUTERY ABLATION-NOVASURE [facility] Comment on above: DILATATION AND CURETTAGE HYSTEROSCOPY CA UTERY ABLATION-NOVASURE Start: 12-10-2021 End: 12-10-2021 Anesthesia consultation 12/10/2021 Anesthesia Event IP Unit Brittany Lucas, FIBER MACHINE TENDER - IT TECHNICIAN [address] [facility] [address] [place] [address] [facility] Start: 12-10-2021 End: 12-10-2021 Hysteroscopy endometrial ablation [facility] Start: 12-10-2021 Subsequent hospital visit by physician 12/10/2021 Hospital Encounter IP Unit Frank Pickering MD [address] [place] [address] [facility] Start: 12-06-2021 Screening for malignant neoplasm of colon Colon Cancer Screen FIT/FOBT [facility] Phone: Start: 10-29-2021 End: 10-29-2021 Patient encounter procedure 10/29/2021 Office Visit Obstetrics and Gynecology Veena Mary APRN - EMILYM [address] [facility] [address] [place] [address] [facility] Start: 10-10-2021 Diabetic retinal exam Diabetic retinal exam [employer] Start: 10-07-2021 Hemoglobin A1c measurement A1C test (Diabetic or Prediabetic) [facility] Phone: Start: 07-08-2021 Influenza vaccination Flu vaccine (Season Ended) [facility] Phone: Comment on above: Postponed from 01/29/2021 (Patient Refus ed) Start: 06-28-2021 Creatinine measurement Creatinine monitoring [facility] Phone: Start: 06-28-2021 Diabetic microalbuminuria test Diabetic microalbuminuria test [facility] Phone: Start: 06-28-2021 Lipid panel Lipid screen [facility] Start: 06-28-2021 Potassium monitoring Potassium monitoring [facility] Phone: Start: 06-28-2021 Urine screening for protein Diabetic microalbuminuria test [facility] Start: 06-20-2021 End: 06-20-2021 Patient encounter procedure 06/20/2021 Office Visit Family Medicine Zayra Hart, DO [address] [place] [address] [facility] Start: 01-29-2021 Influenza vaccination Flu vaccine (#1) [facility] Phone: Start: 11-13-2020 Screening for malignant neoplasm of breast MAMMOGRAM SCREENING [facility] Start: 09-10-2020 Diabetic foot examination Diabetic foot exam [place], [place] Start: 09-10-2020 HbA1c (Bld) [Mass fraction] A1C test (Diabetic or Prediabetic) [place], [place] Start: 2020 Screening for malignant neoplasm of colon [facility] Start: 06-04-2020 End: 06-04-2020 Office Visit 06/04/2020 Office Visit Family Medicine Zayra Hart, DO [address] [place] [phone] [facility] Start: 05-03-2020 End: 05-03-2020 Office Visit 05/03/2020 Office Visit Pain Management Sukhdev Galeano MD [address] [place] [address] [address] [place] [address] [phone] [facility] Physical Medicine & Rehabilitation Start: 04-11-2020 End: 04-11-2020 Hospital Encounter [facility] Comment on above: GENICULAR NERVE BLOCK BILATERAL KNEES Start: 04-11-2020 End: 04-11-2020 Appointment 04/11/2020 Appointment Pre-Admission Testing [facility] PRE ADMIT Start: 03-31-2020 A1C test (Diabetic or Prediabetic) A1C test (Diabetic or Prediabetic) [place], [place] Start: 03-31-2020 Lipid panel Lipid screen [place] Start: 03-31-2020 Lipid screen Lipid screen [place] Start: 03-22-2020 End: 03-22-2020 Office Visit 03/22/2020 Office Visit Pain Management Sukhdev Galeano MD [address] [place] [address] [address] [place] [address] [phone] [facility] Physical [facility] & Rehabilitation Start: 01-30-2020 Influenza vaccination [place] Start: 12-11-2019 End: 12-11-2019 Office Visit 12/11/2019 Office Visit Family Medicine Zayra Hart, DO [address] [place] [phone] [facility] Start: 05-29-2019 End: 05-29-2019 Patient encounter procedure 05/29/2019 Office Visit General Surgery Darien Waters MD [address] [facility] [address] [place] [address] [phone] [facility]S [facility] Start: 05-18-2019 End: 05-18-2019 Patient encounter procedure 05/18/2019 Appointment Radiology Radiologist, [facility] Gen [facility] Radiology Start: 01-29-2019 Influenza vaccination Flu vaccine (#1) [place], [place] Start: 09-22-2018 Cervical cancer screen Cervical cancer screen [place], [place] Start: 09-22-2018 Screening for malignant neoplasm of cervix [place] Start: 08-26-2018 A1C test (Diabetic or Prediabetic) A1C test (Diabetic or Prediabetic) [place] Start: 08-21-2018 Creatinine measurement Creatinine monitoring [place], [place] Start: 08-21-2018 Creatinine monitoring Creatinine monitoring [place], [place] Start: 08-21-2018 Potassium monitoring Potassium monitoring [place] Start: 2015 Lipid panel LIPID SCREENING [facility] Start: 2015 Screening for malignant neoplasm of breast MAMMOGRAM SCREENING DISCUSSION [facility] Start: 2005 Screening for malignant neoplasm of cervix [facility] Start: 1996 Screening for malignant neoplasm of cervix [facility] Start: 1994 DTaP/Tdap/Td vaccine (1 - Tdap) DTaP/Tdap/Td vaccine (1 - Tdap) [facility] Start: 1994 Hepatitis B vaccination HEP B VACCINE (1 of 3 - 19+ 3-dose series) [facility] Start: 1994 Hepatitis B vaccine (1 of 3 - 19+ 3-dose series) Hepatitis B vaccine (1 of 3 - 19+ 3-dose series) [facility] Start: 1994 Hepatitis B Vaccine (1 of 3 - Risk 3-dose series) Hepatitis B Vaccine (1 of 3 - Risk 3-dose series) [facility] Start: 1994 Pneumococcal 0-49 years Vaccine (1 of 2 - PCV) Pneumococcal 0-49 years Vaccine (1 of 2 - PCV) [facility] Start: 1994 Third diphtheria, tetanus and acellular pertussis (DTaP) vaccination TDAP (ADULT) [facility] Start: 1993 Diabetic microalbuminuria test Diabetic microalbuminuria test [place], [place] Start: 1990 HIV screening HIV SCREENING DISCUSSION [facility] Start: 1987 COVID-19 Vaccine (1) COVID-19 Vaccine (1) [facility] Work Phone: Start: 1987 Depression Monitoring Depression Monitoring [facility] Start: 1986 DTaP/Tdap/Td vaccine (1 - Tdap) DTaP/Tdap/Td vaccine (1 - Tdap) [place] Start: 1985 [object Object] Diabetic foot exam [place] Start: 1985 Diabetic retinal exam Diabetic retinal exam [place], [place] Start: 1981 Pneumococcal 0-64 years Vaccine (1 - PCV) Pneumococcal 0-64 years Vaccine (1 - PCV) [facility] Start: 1981 Pneumococcal 0-64 years Vaccine (1 of 1 - PPSV23) Pneumococcal 0-64 years Vaccine (1 of 1 - PPSV23) [place] Start: 1981 Pneumococcal 0-64 years Vaccine (1 of 2 - PCV) Pneumococcal 0-64 years Vaccine (1 of 2 - PCV) [facility] Start: 1981 Pneumococcal 0-64 years Vaccine (1 of 2 - PPSV23) Pneumococcal 0-64 years Vaccine (1 of 2 - PPSV23) [facility] Start: 1980 COVID-19 Vaccine (1) COVID-19 Vaccine (1) [facility] Start: 1975 COVID-19 Vaccine (#1) COVID-19 Vaccine (#1) [facility] Start: 1975 Hepatitis B vaccination HEP B VACCINE (1 of 3 - 3-dose series) [facility] Start: 1975 Hepatitis B vaccine (1 of 3 - 3-dose series) Hepatitis B vaccine (1 of 3 - 3-dose series) [facility] Start: 1975 Hepatitis C screening [facility] Start: 1975 Tetanus vaccination TETANUS [facility] End: 12-04-2021 Blood Bank Specimen [employer] Phone: Comment on above: Once for 1 Occurrences starting 12/05/19 until 12/04/2021 End: 05-09-2020 Blood glucose - POCT Blood glucose - POCT Point of Care Testing Routine One Time for 1 Occurrences starting 05/09/2020 until 05/09/2020 [employer] Comment on above: One Time for 1 Occurrences starting 04/30 until 05/09/2020 End: 05-23-2020 Blood glucose - POCT Blood glucose - POCT Point of Care Testing Routine One Time for 1 Occurrences starting 05/23/2020 until 05/23/2020 [employer] Comment on above: One Time for 1 Occurrences starting 05/01 until 05/23/2020 End: 07-30-2022 CA [address] [employer] Phone: Comment on above: 1 Occurrences starting 07/30/2022 until 07/30/2022 End: 07-30-2022 CEA RICHELLE [employer] Phone: Comment on above: 1 Occurrences starting 07/30/2022 until 07/30/2022 Continuous pulse oximetry Pulse oximetry, continuous Respiratory Care Routine Every 4hr until discontinued starting 12/10/2021 [employer] Phone: Comment on above: Every 4hr until discontinued starting End: 02-04-2021 COVID-19 COVID-19 Lab Routine Suspected COVID-19 virus infection 1 Occurrences starting 02/04/2021 until 02/04/2021 [facility] Phone: Comment on above: 1 Occurrences starting 02/04/2021 until 02/04/2021 COVID-19 COVID-19 Lab Rou jasper Suspected COVID-19 virus infection 02/04/2021 11:55 AM EDT [facility] Phone: End: 04-02-2020 COVID-19 Ambulatory COVID-19 Ambulatory Lab Routine Viral URI with cough 1 Occurrences starting 04/02/2020 until 04/02/2020 [facility] Comment on above: 1 Occurrences starting 04/02/2020 until 04/02/2020 COVID-19 Ambulatory COVID-19 Amb ulatory Lab Routine Viral URI with cough 04/02/2020 1:26 PM EST [facility] End: 03-17-2024 DBT Breast - bilateral screening [facility] Comment on above: 1 Occurrences starting 03/17/2024 until 03/17/2024 End: 05-23-2020 FL LESS THAN 1 HOUR FL LESS THAN 1 HOUR Imaging Routine Once for 1 Occurrences starting 05/23/2020 until 05/23/2020 [facility] Comment on above: Once for 1 Occurrences starting 05/23/20 until 05/23/2020 End: 05-15-2019 FL UGI FL UGI Imaging Routine Once for 1 Occurrences starting 05/15/2019 until 05/15/2019 [facility] Phone: Comment on above: Once for 1 Occurrences starting 05/15/20 19 until 05/15/2019 End: 12-10-2021 Glucose [Mass/volume] in Serum or Plasma POCT Glucose Point of Care Testing Routine One Time for 1 Occurrences starting 12/10/2021 until 12/10/2021 [employer] Phone: Comment on above: One Time for 1 Occurrences starting 11/28 until 12/10/2021 Glucose [Mass/volume ] in Serum or Plasma [employer] Phone: Comment on above: 4X Daily (AC & HS) until discontinued st arting 09/08/2022 As Needed until disc ontinued starting 09/08/2022 H. PYLORI DETECTION H. PYLORI DE TECTION Lab Routine ONE TIME for 1 Occurrences starting 05/15/2019 [facility] Phone: Comment on above: ONE TIME for 1 Occurrences starting 04/30 Initiate Oxygen Ther apy Protocol Initiate Oxygen Therapy Protocol Respiratory Care Routine Daily until discontinued starting 05/15/2019 [facility] Phone: Comment on above: Daily until discontinued starting 2018 End: 12-10-2021 INITIATE PACU OXYGEN THERAPY PROTOCOL Initiate PACU Oxygen Therapy Protocol Respiratory Care Routine Continuous until discontinued starting 12/10/2021 [employer] Comment on above: Continuous until discontinued starting 0 12/10/2021 End: 12-11-2024 MR Thoracic spine WO contrast [email or web address] Comment on above: 1 Occurrences starting 12/11/2024 until 12/11/2024 Nuclear Ab [Titer] i n [facility] Work Phone: Oxygen therapy [Mini mum Data Set] [place] Comment on above: Daily until discontinued starting 2019 Daily until disconti nued starting 05/23/2020 Oxygen therapy [Mini mum Data Set] Initiate Oxygen Therapy Protocol Respiratory Care Routine As Needed until discontinued starting 12/10/2021 [employer] Work Phone: Comment on above: As Needed until discontinued starting Oxygen therapy [Mini mum Data Set] Initiate Oxygen Therapy Protocol Respiratory Care Routine As Needed until discontinued starting 09/08/2022 [employer] Work Phone: Comment on above: As Needed until discontinued starting End: 05-23-2020 , urine , urine Lab Routine One Time for 1 Occurrences starting 05/23/2020 until 05/23/2020 [facility] [employer] Comment on above: One Time for 1 Occurrences starting 05/01 until 05/23/2020 End: 12-10-2021 , Urine , Urine Lab Routine One Time for 1 Occurrences starting 12/10/2021 until 12/10/2021 [employer] Work Phone: Comment on above: One Time for 1 Occurrences starting 11/28 until 12/10/2021 End: 02-11-2023 RF Unspecified body region Views during surgery [facility] Comment on above: One Time for 1 Occurrences starting 01/29 until 02/11/2023 End: 07-02-2023 RF Unspecified body region Views during surgery [facility] Comment on above: One Time for 1 Occurrences starting 07/2023 until 07/02/2023 Spirometry panel Incentive rayshawn metry Respiratory Care Routine Every 2hr while awake until discontinued starting 09/08/2022 [employer] Phone: Comment on above: Every 2hr while awake until discontinued starting 09/08/2022 Surgical Pathology Surgical Path ology Lab Routine ONE TIME for 1 Occurrences starting 05/15/2019 [employer] Phone: Comment on above: ONE TIME for 1 Occurrences starting 04/30 Surgical Pathology Surgical Path ology Lab Routine Dysmenorrhea Release Upon Ordering for 1 Occurrences starting 12/10/2021 [employer] Phone: Comment on above: Release Upon Ordering for 1 Occurrences starting 12/10/2021 Surgical Pathology Surgical Path ology Lab Routine Post endometrial ablation syndrome Pelvic pain in female Release Upon Ordering for 1 Occurrences starting 09/08/2022 [employer] Phone: Comment on above: Release Upon Ordering for 1 Occurrences starting 09/08/2022 End: 09-08-2022 SURGICAL PATHOLOGY REPORT SURGICAL PATHOLOGY REPORT Lab Routine Once for 1 Occurrences starting 09/08/2022 until 09/08/2022 [employer] Phone: Comment on above: Once for 1 Occurrences starting 09/09/19 23 until 09/08/2022 TYPE AND SCREEN TYPE AND SCREEN Blood Bank Routine Pre-op testing 12/04/2021 10:01 AM EDT [employer] Phone: TYPE AND SCREEN TYPE AND SCREEN Blood Bank Stat [employer] Label print 09/08/2022 6:58 AM EDT [employer] Phone: XR Lumbar spine View s W right bending and W left bending XR SPINE LUMBAR W BENDING Imaging Routine Spinal stenosis of lumbar region with neurogenic claudication 05/03/2023 12:01 PM [facility] Work Phone: Immunizations Immunization Date Immunization Notes Care Provider Adán daigle 04-13-2017 influenza, seasonal, injectable, preservative free [facility] Vimal MERINO [facility] Work Phone: 04-13-2017 influenza virus vaccine, unspecified formulation Keila Hemphill MD Work Phone: [facility] 04-15-2015 influenza virus vaccine, unspecified formulation [address], [place] 01-08-2014 influenza virus vaccine, unspecified formulation [address], [place] 01-08-2014 influenza virus vaccine, whole virus [facility], [place] 02-16-2013 influenza virus vaccine, unspecified formulation [address] 02-16-2013 influenza virus vaccine, whole virus [facility], [place] 12-28-2011 influenza virus vaccine, unspecified formulation [address] Payers Date Payer Category Payer Unknown [id number] 2021 Unknown [id number] 1.2.840.200533.1.13.239.2 .7.3.170736.315 2020 Unknown [id number]. 1.13.172.2 .7.3.470167.315 2019 Unknown BCBS BCBS OUT OF STATE xxxxxxxxxxxx 2019-Present [address] [place] [address] xxxxxxxxxxxx 1.2.840.612868.1.13.239.2 .7.3.591525.315 2019 Unknown BCBS BCBS OUT OF STATE [id number] 2019-Present [address] [place] [address] [id number] 1.2.840.295382.1.13.239.2 .7.3.486704.315 2016 Private Health Insurance [facility] xxxxxxxxx 2016-Present [phone] [address] [place] [address] xxxxxxxxx 1.2.840.332194.1.13.239.2 .7.3.042907.315 1975 Unknown [id number] 2.16.840.1.965502.3.579.2 .593 1975 Unknown [id number] 2.16.840.1.970706.3.579.2 .593 1975 Unknown [id number] 2.16.840.1.544882.3.579.2 .593 1975 Unknown [id number] 2.16.840.1.241707.3.579.2 .593 1975 Unknown [id number] 2.16.840.1.089371.3.579.2 .593 1975 Unknown [id number] 2.16.840.1.926209.3.579.2 .593 1975 Unknown [id number] 2.16.840.1.450245.3.579.2 .983 1975 Unknown [id number] 2.16.840.1.414411.3.579.2 .983 1975 Unknown [id number] 2.16.840.1.867846.3.579.2 .175 1975 Unknown [id number] 2.16.840.1.592281.3.579.2 .983 1975 Unknown [id number] 2.16.840.1.230478.3.579.2 .983 1975 Unknown [id number] 2.16.840.1.523164.3.579.2 .983 1975 Unknown [id number] 2.16.840.1.430532.3.579.2 .93 1975 Unknown [id number] 2.16.840.1.144479.3.579.2 .93 1975 Unknown [id number] 2.16.840.1.129428.3.579.2 .93 1975 Unknown [id number] 2.16.840.1.508277.3.579.2 .983 1975 Unknown [id number] 2.16.840.1.401798.3.579.2 .983 1975 Unknown [id number] 2.16.840.1.979040.3.579.2 .983 1975 Unknown [id number] 2.16.840.1.795070.3.579.2 .983 1975 Unknown [id number] 2.16.840.1.943597.3.579.2 .983 1975 Unknown [id number] 2.16.840.1.142395.3.579.2 .983 1975 Unknown [id number] 2.16.840.1.386842.3.579.2 .196 1975 Unknown [id number] 2.16.840.1.910193.3.579.2 .196 1975 Unknown [id number] 2.16.840.1.224411.3.579.2 .196 1975 Unknown [id number] 2.16.840.1.250915.3.579.2 .196 1975 Unknown [id number] 2.16.840.1.941850.3.579.2 .174 1975 Unknown [id number] 2.16.840.1.751325.3.579.2 .174 1975 Unknown [id number] 2.16.840.1.082881.3.579.2 .174 1975 Unknown [id number] 2.16.840.1.514988.3.579.2 .174 1975 Unknown [id number] 2.16.840.1.507777.3.579.2 .174 1975 Unknown [id number] 2.16.840.1.941989.3.579.2 .174 1975 Unknown [id number] 2.16.840.1.977005.3.579.2 .174 1975 Unknown [id number] 2.16.840.1.489652.3.579.2 .174 1975 Unknown [id number] 2.16.840.1.874889.3.579.2 .174 1975 Unknown [id number] 2.16.840.1.303381.3.579.2 .174 1975 Unknown [id number] 2.16.840.1.084959.3.579.2 .174 1975 Unknown [id number] 2.16.840.1.468465.3.579.2 .174 1975 Unknown [id number] 2.16.840.1.967215.3.579.2 .174 1975 Unknown [id number] 2.16.840.1.440891.3.579.2 .174 1975 Unknown [id number] 2.16.840.1.134069.3.579.2 .174 1975 Unknown [id number] 2.16.840.1.086881.3.579.2 .174 1975 Unknown [id number] 2.16.840.1.936359.3.579.2 .174 1975 Unknown [id number] 2.16.840.1.538949.3.579.2 .174 1975 Unknown [id number] 2.16.840.1.475779.3.579.2 .173 1975 Unknown [id number] 2.16.840.1.465542.3.579.2 .173 1975 Unknown [id number] 2.16.840.1.437250.3.579.2 .173 1975 Unknown [id number] 2.16.840.1.409319.3.579.2 .173 1959 Unknown [id number] 1.2.840.138924.1.13.239.2 .7.3.025724.315 Self-pay Self Pay [id number] Social History Date Type Detail Facility Start: 03-18-2019 End: 12-24-2021 Tobacco smoking status [facility] Start: 03-18-2019 End: 05-12-2024 Alcohol intake No [employer] Start: 1975 Sex Assigned At Not on file [place], [place] Start: 09-11-2019 End: 11-17-2024 Alcohol intake Current non-drinker of alcohol (finding) [place], [place] Start: 12-20-2019 End: 12-24-2021 Tobacco use and exposure [facility] [place] Start: 11-24-2021 End: 09-07-2022 Exposure to SARS-CoV-2 (event) Not sure [place], [place] Start: 06-04-2020 End: 06-20-2021 History SDOH Financial 5 [employer] Work Phone: Start: 06-04-2020 End: 06-20-2021 History SDOH Food Worry 1 [employer] Work Phone: Start: 1975 Sex Assigned At Female F [facility] Start: 06-23-2022 End: 08-02-2023 Alcohol intake Ex-drinker (finding) [facility] Start: 07-27-2022 History SDOH Alcohol Std Drinks 0 [employer] Work Phone: Start: 10-23-2022 End: 05-12-2024 History of Social function [employer] Has the [employer], [employer], or water [employer] threatened to shut off services in your home in past 12Mo No [employer] How often to you hav e a drink containing alcohol? Never [employer] How many standard dr inks containing alcohol do you have on a typical day? Patient does not drink [employer] (I/We) worried whehung er (my/our) food would run out before (I/we) got money to buy more. Never true [employer] Start: 07-10-2012 Sex Female (finding) Richelle jackson [facility] Medical Equipment Procedure Code Equipment Code Equipment Origin al Text Equipment Identifier Dates Test blood sugar once daily and as needed [id number] Start: 03-31-2019 Test blood sugar once daily and as needed [id number] Start: 03-31-2019 Test sugar twice daily [id number] Start: 06-08-2019 End: 12-20-2019 Test blood sugar once daily and as needed [id number] Start: 12-08-2019 End: 12-20-2019 Test BID [id number] Start: 12-28-2019 USE 1 TO CHECK GLUCOSE ONCE DAILY AND IF NEEDED [id number] Start: 12-29-2019 USE 1 TO CHECK GLUCOSE ONCE DAILY AND IF NEEDED [id number] Start: 04-01-2020 USE DIRECTED TWICE A DAY [id number] Start: 07-03-2020 Check glucose BID [id number] Start: 06-04-2020 USE DIRECTED TWICE A DAY [id number] Start: 08-18-2021 1 each by Does n ot apply route daily [id number] Start: 09-04-2021 Patch Morena L Dia3.2in Cir W/ Strp [employer] Absrb - [id number] Start: 04-07-2022 Comment on above: Description: Size an d expiration date confirmed with surgeon [employer] [id number] Start: 02-11-2023 [employer] [id number] Start: 02-11-2023 [employer]w [id number] Start: 02-11-2023 Set Screw 5.5-6. 0 - [id number] Start: 10-19-2023 Screw Poly Solid 7.5x50 - [id number] Start: 10-19-2023 Screw Poly Solid 7.5x45 - [id number] Start: 10-19-2023 Konrad Ti Prebent 5.5x40 - [id number] Start: 10-19-2023 Goals Date Patient Goal [...] prepare for safety after surgery. (Met today) [facility] Goals: Independent core exercises for senior care use to prevent reoccurrence. Return to normal activity of house work/leisure/ADLs with post op therapy as ordered by surgeon if needed. Personal health goal Comment on above: Formatting of this n ote might be different from the original. 04/23/23 Short Term Goals: 3 weeks Tolerate therapy well with reported improvements from patient. [facility] Goals: 6 weeks Independent & compliant with HEP including proper posture & body mechanics for long term care administrator benefits. Decrease pain of back to <5/10 [...] min; Oswestry <45%. Clinical Notes 05-15-2019 to 12-25-2024 Anaid Jerry, PT - 06/01/2024 1:00 PM Anaid Zapata, PT - 06/01/2024 1:00 PM Anaid Zapata, PT - 05/29/2024 1:00 PM ESTPatient Instructions Note Date & Type Note Facility 12-25-2024 Note Neurosurgery Clinic Note Chief Complaint: Postop. Interval History: Sarah Harris is a 49 y.o. year-old female who presents for postoperative follow-up after undergoing a thoracic laminotomy and placement of a [employer] thoracic spinal cord stimulation system on 12/14/2024. She reports that she has been doing relatively well since surgery. She reports her had attempted to modify some of the stimulation settings and her stimulation had not felt as good, but with reprogramming today by the [employer] rep she was getting good coverage in all of the regions of chronic pain. She reports no difficulties with her wounds or new neurologic symptoms. She notes some pain at the thoracic surgical site although it is improving. In review of her history, she was first seen on 11/21/2024 in kind referral from pain management in [facility] to discuss placement of a spinal cord stimulation system. She reports that she had suffered from more than 10 years of back pain. She had undergone a prior lumbar fusion and reports no substantial improvement or worsening after surgical therapy. Pain is centered in the right greater than left low back. It radiates into the left buttock and down the left lateral leg to approximately the knee. She does note some knee pain with walking related to osteoarthritis of the right knee. She denies any substantial numbness or weakness. She has undergone multiple conservative therapies without a great deal of relief. Most recently, she had undergone a percutaneous trial of [employer] spinal cord stimulation by Dr. Rodriguez. During the placement of the electrodes on 09/29/2024, the most superior electrode was placed to the top of the C7 vertebral body per his operative documentation. The patient experienced a substantial degree of relief in the ensuing trial. She reports at least 65% improvement in pain as well as improvement in functional activities such as standing and walking. Most notably, she noted substantial improvement in her sleep quality and duration. Problem List: Problem List[1] Past Medical History: Medical History[2] Past Surgical History: Surgical History[3] Medications: Current Outpatient Medications Medication Instructions estradiol (Climara) 0.05 mg/24 hr 1 patch gabapentin (NEURONTIN) 600 mg, Nightly lisinopril 5 mg, Daily melatonin 5 mg, Nightly metFORMIN (Glucophage) 1,000 mg tablet 1 tablet, 2 times daily with meals montelukast (SINGULAIR) 10 mg, Nightly nabumetone (RELAFEN) 500 mg, 2 times daily pantoprazole (PROTONIX) 40 mg, 2 times daily RT PARoxetine (Paxil) 30 mg tablet 1 tablet, Every morning progesterone (Prometrium) 100 mg capsule 1 capsule, Nightly topiramate 50 mg, Nightly verapamil SR (Calan-SR) 240 mg ER tablet 1 tablet, Daily Allergies: Allergies[4] Review of Systems: Review of Systems Musculoskeletal: Positive for back pain and gait problem. Skin: Positive for wound. Exam: Vitals: Vitals: 12/25/24 0947 BP: 101/69 Pulse: 83 Temp: 37.1 ???C (98.8 ???F) Body mass index is 52.46 kg/m???. General: Awake, alert, NAD. Well groomed. Seated in wheelchair. HEENT: Normocephalic, atraumatic. Neck supple without lymphadenopathy. Heart: Regular rate and rhythm. Lungs: Clear to auscultation bilaterally. Abdomen: Soft, non-tender, non-distended. Bowel sounds present. Extremities: No cyanosis or edema. No noted deformities. Back: Right flank and thoracic wound is healing well with residual Dermabond in place. Lab: Admission on 12/14/2024, Discharged on 12/14/2024 Component Date Value Ref Range Status Glucose POC 12/14/2024 104 70 - 105 mg/dL Final Glucose POC 12/14/2024 139 (H) 70 - 105 mg/dL Final Imaging: N/A. Impression: Sarah Harris is a 49 y.o. female who presents for postoperative follow-up after undergoing a T8 laminotomy and placement of a [employer] spinal cord stimulation system on 12/14/2024. She appears to be healing well. With reprogramming by the [employer] international sales representative she reports good coverage of her regions of chronic pain and substantial relief. Today, we discussed gradually increasing her activity. I asked the patient to avoid submerging her wounds in water until the glue is completely fallen away. I also asked her to avoid using adhesive patches such as two-sided tape for recharging until the glue is completely gone. Plan: Provided she continues to do well, I would be happy to see Mr. Harris back on an as-needed basis. She was advised to continue to follow with her treating pain management team as well as the representatives from [employer]. A voice recognition system was used to compose this note. While attempts have been made to review dictation as it is transcribed, on occasion spoken words may be misinterpreted by the technology leading to omissions and inappropriate words or phrases. [1] Patient Active Problem List (more content not included)... [facility] 12-15-2024 Note Patient: Sarah beaver Procedure Information Anesthesia Start Date/Time: 12/14/24 1004 Procedure: T8 Laminotomy for SCS Placement System - C-Arm, Prone on Open Ramón Table, [employer] REP NOTIFIED 11/29 JK Location: [facility] OPERATING ROOM 03 / [facility] Operating Room Surgeons: Hunter Sánchez MD Relevant Problems Cardio (+) Essential hypertension, benign (+) Peripheral venous insufficiency Endo (+) Type 2 diabetes mellitus without complication, without long-term current use of insulin (CMS/HCC) GI (+) GERD (gastroesophageal reflux disease) (+) Hiatal hernia Other (+) Arthritis of left knee (+) Osteoarthritis of right acromioclavicular joint (+) Osteoarthritis of right knee Clinical information reviewed: Tobacco Allergies Meds Med Hx Surg Hx OB Status Fam Hx Soc Hx Pertinent history includes: METS < 4 limited by joint pain back pain Past Medical History: Diagnosis Date Anxiety Arthritis Diabetes mellitus (CMS/HCC) Hypertension Joint pain PONV (postoperative nausea and vomiting) Past Surgical History: Procedure Laterality Date ANTERIOR CRUCIATE LIGAMENT REPAIR Right CHOLECYSTECTOMY HERNIA REPAIR HYSTERECTOMY total LAMINECTOMY THORACIC SPINE W/ PLACEMENT SPINAL CORD STIMULATOR 12/14/2024 Dr. Sánchez LUMBAR FUSION 09/2023 Social History Tobacco Use Smoking status: Never Smokeless tobacco: Never Vaping Use Vaping status: Never Used Substance Use Topics Alcohol use: Never Drug use: Never Medication Documentation Review Audit Reviewed by Mary Nobles RN (Registered Nurse) on 12/14/24 at 0850 Medication Order Taking? Sig Documenting Provider Last Dose Status estradiol (Climara) 0.05 mg/[id number] 1 patch on the skin. Historical Provider, Active gabapentin (Neurontin) 300 mg capsule [id number] Yes Take 600 mg by mouth at bedtime. Historical Provider, 12/13/2024 Active lisinopril 5 mg tablet [id number] Yes Take 5 mg by mouth in the morning. Historical ProviderMD 12/13/2024 Active melatonin 5 mg tablet [id number] Yes Take 5 mg by mouth at bedtime. Historical ProviderMD 12/13/2024 Active metFORMIN (Glucophage) 1,000 mg tablet [id number] Yes Take 1 tablet by mouth with breakfast and with evening meal. Historical ProviderMD 12/13/2024 Active montelukast (Singulair) 10 mg tablet [id number] Yes Take 10 mg by mouth at bedtime. Kasie ProviderMD 12/13/2024 Active nabumetone (Relafen) 500 mg tablet [id number] Yes Take 500 mg by mouth two times daily. Historical ProviderMD Past Week Active pantoprazole (ProtoNix) 40 mg EC tablet [id number] Yes Take 40 mg by mouth in the morning and at bedtime. Kasie ProviderMD 12/14/2024 Morning Active PARoxetine (Paxil) 30 mg tablet [id number] Yes Use 1 tablet in the mouth or throat in the morning. Kasie ProviderMD 12/14/2024 Morning Active progesterone (Prometrium) 100 mg capsule [id number] Yes Take 1 capsule by mouth at bedtime. Kasie ProviderMD 12/13/2024 Active topiramate 50 mg tablet [id number] Yes Take 50 mg by mouth at bedtime. Historical ProviderMD 12/13/2024 Active verapamil SR (Calan-SR) 240 mg ER tablet [id number] Yes Take 1 tablet by mouth in the morning. Historical ProviderMD 12/14/2024 Morning Active Allergies Allergen Reactions Codeine Shortness of breath Phentermine Shortness of breath Sertraline Nausea And Vomiting and Shortness of breath Sulfa (Sulfonamide Antibiotics) Shortness of breath and Swelling Chlorhexidine Rash Hydrocodone-Acetaminophen Hives and Rash Penicillin G Rash Pertinent Diagnostic data has been reviewed, part of which includes: Hemoglobin (g/dL) Date Value 11/21/2024 11.8 (L) Auto WBC (10*3/uL) Date Value 11/21/2024 10.95 (H) Potassium (mmol/L) Date Value 11/21/2024 4.1 Glucose (mg/dL) Date Value 11/21/2024 106 (H) Creatinine (mg/dL) Date Value 11/21/2024 0.73 eGFR (mL/min/1.73m*2) Date Value 11/21/2024 100.8 INR (no units) Date Value 11/21/2024 0.96 No results found for: PTT Lab Results Component Value Date CALCIUM 8.9 11/21/2024 NA 137 11/21/2024 CO2 26 11/21/2024 CL 104 11/21/2024 BUN 10 11/21/2024 HCT 38.6 11/21/2024 PLT 331 11/21/2024 ECG No results found for this or any previous visit (from the past 4464 hours). No echocardiogram results found for the past 12 months Fasting / NPO status is satisfactory, including NPO for solids > 8 hrs. Pt is alert & oriented. HCG: N/A Hysterectomy Physical Exam Airway Mallampati: II TM distance: >3 FB Neck ROM: full Cardiovascular - normal exam Rhythm: regular Rate: normal Dental (+) edentulous Pulmonary - normal examComments: Respirations are: Non-labored in effort, Regular in pattern, and Normal in rate. There is visible chest wall excursion that is: Bilateral & Symmetrical. Neurological Abdominal (+) obese Anesthesia Plan ASA 3 general (GETA, p (more content not included)... [facility] 12-14-2024 Note Patient: Sarah beaver Procedure Summary Date: 12/14/24 Room / Location: [facility] OPERATING ROOM 03 / [facility] Operating Room Anesthesia Start: 1004 Anesthesia Stop: 1212 Procedure: T8 Laminotomy for SCS Placement System Diagnosis: Chronic pain syndrome (Chronic pain syndrome [G89.4]) Surgeons: Hunter Sánchez MD Responsible Provider: Marcia Gutiérrez MD Anesthesia Type: general ASA Status: 3 Anesthesia Type: general Vitals Value Taken Time BP 97/61 12/14/24 12:25 Temp 36.3 ???C (97.3 ???F) 12/14/24 12:10 Pulse 85 12/14/24 12:36 Resp 17 12/14/24 12:36 SpO2 87 % 12/14/24 12:36 Vitals shown include unfiled device data. Anesthesia Post Evaluation Patient location during evaluation: PACU Patient participation: complete - patient participated Level of consciousness: awake and alert Pain management: satisfactory to patient Airway patency: patent Cardiovascular status: acceptable and stable Respiratory status: acceptable, unassisted and spontaneous ventilation Hydration status: stable Patient is hemodynamically stable and is able to be discharged from PACU per anesthesia protocol. No notable events documented. [facility] 12-14-2024 Note Airway Date/Time: 12/14/2024 10:14 AM Reason: elective Airway not difficult General Information and Staff Patient location during procedure: OR Anesthesiologist: Marcia Gutiérrez MD Performed: anesthesiologist and other anesthesia staff Learner assisted: Lord Tucker Patient Condition Indications for airway management: anesthesia Patient position: sniffing Sedation level: deep Final Airway Details Preoxygenated: yes Final airway type: endotracheal airway Successful airway: ETT Cuffed: yes Successful intubation technique: video laryngoscopy Adjuncts used in placement: intubating stylet Endotracheal tube insertion site: oral Blade: [place] size: #3 ETT size (mm): 7.5 Cormack-Lehane Classification: grade I - full view of glottis Placement verified by: chest auscultation and capnometry Measured from: lips ETT to lips (cm): 21 Number of attempts at approach: 1 Number of other approaches attempted: 0 [facility] 11-21-2024 Note Neurosurgery Consult Chief Complaint: Chronic pain syndrome History of Present Illness: Sarah Harris is a 49 y.o. female who presents in kind referral from pain management in [facility] to discuss placement of a spinal cord stimulation system. She reports that she had suffered from more than 10 years of back pain. She had undergone a prior lumbar fusion and reports no substantial improvement or worsening after surgical therapy. Pain is centered in the right greater than left low back. It radiates into the left buttock and down the left lateral leg to approximately the knee. She does note some knee pain with walking related to osteoarthritis of the right knee. She denies any substantial numbness or weakness. She has undergone multiple conservative therapies without a great deal of relief. Most recently, she had undergone a percutaneous trial of [employer] spinal cord stimulation by Dr. Rodriguez. During the placement of the electrodes on 09/29/2024, the most superior electrode was placed to the top of the C7 vertebral body per his operative documentation. The patient experienced a substantial degree of relief in the ensuing trial. She reports at least 65% improvement in pain as well as improvement in functional activities such as standing and walking. Most notably, she noted substantial improvement in her sleep quality and duration. She presents today to discuss placement of a permanent spinal cord stimulation system. Problem List: Problem List[1] Past Medical History: Medical History[2] Past Surgical History: Surgical History[3] Medications: Current Medications[4] Allergies: Allergies[5] Social History: Social History Socioeconomic History Marital status: Spouse name: Not on file Number of children: Not on file Years of education: Not on file Highest education level: Not on file Occupational History Not on file Tobacco Use Smoking status: Never Smokeless tobacco: Never Vaping Use Vaping status: Never Used Substance and Sexual Activity Alcohol use: Never Drug use: Never Sexual activity: Not on file Other Topics Concern Not on file Social History Narrative Not on file Social Drivers of Health Financial Resource Strain: Low Risk (02/04/2023) Received from [facility] Overall Financial Resource Strain (CARDIA) Difficulty of Paying Living Expenses: Not hard at all Food Insecurity: No Food Insecurity (07/19/2024) Received from [facility] Hunger Vital Sign Worried About Running Out of Food in the Last Year: Never true Ran Out of Food in the Last Year: Never true Transportation Needs: No Transportation Needs (07/19/2024) Received from [facility] PRAPARE - Transportation Lack of Transportation (Medical): No Lack of Transportation (Non-Medical): No Physical Activity: Not on file Stress: Not on file Social Connections: Not on file Intimate Partner Violence: Unknown (11/21/2024) Humiliation, Afraid, Rape, and Kick questionnaire Fear of Current or Ex-Partner: Patient unable to answer Emotionally Abused: Not on file Physically Abused: Not on file Sexually Abused: Not on file Housing Stability: Low Risk (07/19/2024) Received from [facility] Housing Stability Vital Sign Unable to Pay for Housing in the Last Year: No Number of Times Moved in the Last Year: 0 Homeless in the Last Year: No Family History: Family History[6] Review of Systems: Review of Systems Musculoskeletal: Positive for arthralgias (Right knee), back pain and gait problem. Exam: Vitals: Vitals: 11/21/24 1433 BP: 116/86 Pulse: 87 Temp: 36.7 ???C (98.1 ???F) Body mass index is 52.46 kg/m???. I/O: @IOBRIEF@ General: Awake, alert, NAD. Well groomed. HEENT: Normocephalic, atraumatic. Neck supple without lymphadenopathy. Heart: Regular rate and rhythm. Lungs: Clear to auscultation bilaterally. Abdomen: Soft, non-tender, non-distended. Bowel sounds present. Extremities: No cyanosis or edema. No noted deformities. Back Exam: Well-healed lower lumbar midline wound. Neurologic: Appropriate affect during exam. Oriented x 3. Normal fluency and prosody of speech. Content appropriate and higher function appears intact. CN II-XII grossly intact. PERRL. EOMI. Face symmetric strength and sensation. Tongue midline. Shoulder shrug full strength and symmetric. Palate elevates symmetrically. Motor 5/5 throughout. No pronator drift. Sensation intact to light touch throughout. Gait symmetric with normal nelson and agility in toe, heel, and tandem gait. FTN intact. Straight leg raise negative bilaterally. No Mathews's sign present. No ankle clonus. No scapulohumeral reflex. Lab: Lab on 11/21/2024 Component Date Value Ref Range Status Sodium 11/21/2024 137 136 - 145 mmol/L Final Potassium 11/21/2024 4.1 3.5 - 5.1 mmol/L Final (more content not included)... [facility] 09-29-2024 Note Procedure Performed by: Bing Rodriguez M.D. Procedure: Placement of [employer] contact neuro-electrode trial leads (x two) under fluoroscopic guidance *Needle Gauge Maker at the interspace below T12/L1 *Final Lead Placement Level at the top of the vertebral body T7 Indication: Pain due to Lumbar post laminectomy syndrome Anesthesia: Monitored Anesthesia Care is medically necessary for the procedure due to the procedure requiring the patient to remain motionless for a prolonged period of time. Procedure: Risks, Benefits, Alternatives were reviewed and informed consent was obtained in the preop holding area. All questions were answered appropriately. The patient was brought to the operating room and placed in the prone position with padding under all bony prominences. A pre-procedure time out was performed specifying pt. name, nature site and side of surgery, and allergies. Anesthesia provided appropriate sedation as the skin over the thoracic and lumbar spine were prepped with duraprep and draped in the usual sterile fashion. Under fluoroscopic guidance, the above noted interspace was identified as the site for epidural needle entry. The skin and subcutaneous tissues were anesthetized approximately 1 level inferior to this point with a mixture of 1% lidocaine and 0.25% bupivacaine. Two 14 gauge tuouy needles were inserted to the superior aspect of the lamina just inferior to the target interspace. Then, using loss of resistance technique as well as fluoroscopic guidance, the epidural space was entered. Two [employer] Trial Stimulator Leads were then advanced under intermittent fluoroscopic guidance until the distal tip of the electrode was observed to be in position at the final position noted above. After appropriate electrode placement was achieved, stimulation was tested intraoperatively with multiple lead configurations until concordant paresthesias were obtained covering the areas of the patients pain. At this point, the needles and stylets were removed carefully and the leads were secured to the skin using steri-strips. The region was covered using a sterile tegaderm bandage. The patient was escorted to the recovery area in stable condition having tolerated the procedure well. This document serves as a record of the services and decisions personally performed and made by the attending provider. It was created on his/her behalf by a trained electromedical equipment technician. The creation of this document is based on the provider?s statements to the electromedical equipment technician. Electronically signed by Bing Rodriguez MD 09/29/24 10:22 EDT Electronically signed by Sarah Angeles 09/29/2024 10:17 EDT Electronically signed by Sarah Angeles 09/29/2024 10:19 EDT [facility] 09-29-2024 Note History of Present I llness The patient has a longstanding history of severe chronic pain that has been recalcitrant to conservative treatments and presents today for an interventional pain management procedure. REVIEW OF SYSTEMS Review of Psychiatric, Neurological, Musculoskeletal, Cardiovascular, Endocrine, Gastrointestinal, Pulmonary, and Hematologic Systems was conducted. The review was found to be noncontributory and unchanged from previous clinic visit. PHYSICAL EXAM - Limited Patient is Constitutionally normal and displays a normal mood and affect per situation. Alert and Oriented x 4, Attentive and appropriate, Answers questions appropriately Vital Signs are Stable Heart ? Normal Rate and Rhythm consistent with the patient?s history Lungs ? No significant wheezing, Clear Bilaterally ASSESSMENT / PLAN Diagnosis ? Severe Chronic Pain / lumbar post laminectomy syndrome Risks/Benefits/Expected Outcomes of the planned procedure were discussed with the patient and the patient is in agreement that the potential benefits outweigh the risks of the procedure. The patient does appear to be in acceptable health today to undergo the procedure. It is felt that the patient will likely benefit from the procedure and that the procedure is medically necessary noting the patient?s poor response to more conservative therapies. For these reasons we will proceed as planned with the pain management procedure. Procedure ? permanent spinal cord stimulator implant This patient's condition has been evaluated by myself as the LIP supervising the sedation and has been deemed appropriate for sedation on today's date. Anesthetic Plan: IV conscious sedation [place] [employer] Anesthesiologists (ASA) Classification: Class I ? normal healthy patient, no disease process Class II ? mild systemic disease, no limit of activity Class III ? severe systemic disease, limitation of activity Class IV ? severe systemic disease that is constant threat to life Class V ? moribund, not expected to survive without procedure E - Emergency Classification: Class ____3___ Mallampati Airway Assessment: Class 2 Previous adverse experience and/or complications with sedation and analgesia: [ X ] None [ ] NPO status: [ X ] NPO >8 hours [ ] Other Results Review: No qualifying data available. 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 It was created on his/her behalf by a trained electromedical equipment technician. The creation of this document is based on the provider?s statements to the electromedical equipment technician. Problem List/Past Medical History Ongoing Anxiety Diabetes Type 2 Hypertension Osteoarthritis Historical No qualifying data Procedure/Surgical History hernia repair lumbar fusion hysterectomy achilles tendon repair Medications Inpatient Normal Saline Flush 0.9% injectable solution, 10 mL, IV Push, As Indicated, PRN NS 1,000 mL, 1000 mL, IV Home celecoxib 200 mg oral capsule, TAKE 1 CAPSULE BY MOUTH TWICE A DAY Estradiol Patch 0.05 mg/24 hours weekly transdermal film, extended release gabapentin 300 mg oral capsule, TAKE 1 CAPSULE BY MOUTH NIGHTLY FOR 180 DAYS. metFORMIN 1000 mg oral tablet montelukast 10 mg oral tablet ondansetron 4 mg oral tablet pantoprazole 40 mg oral delayed release tablet PARoxetine 30 mg oral tablet progesterone 100 mg oral capsule, TAKE 1 CAPSULE BY MOUTH EVERY DAY topiramate 25 mg oral tablet verapamil 240 mg/12 hours oral tablet, extended release Allergies Hibiclens (rash) acetaminophen containing compounds (unknown) codeine (unknown) hydrocodone-acetaminophen (Unknown) sulfa drugs (unknown) Social History Alcohol Never Substance Abuse Denies All Tobacco Never (less than 100 in lifetime) Use:. Lab Results Microbiology - Current Encounter No qualifying data available. Electronically signed by Bing Rodriguez MD 09/29/24 09:26 EDT Electronically signed by Sarah Angeles 09/29/2024 09:09 EDT [facility] 06-01-2024 History of Present illness Narrative Images from the original note were not included. [facility] Daily Note Date: 06/01/2024 Patient Name: Sarah Harris : 1975 (48 y.o.) Referring Provider (secondary): Dr. Hood Graham Diagnosis: S/P lumbar fusion Treatment Diagnosis: Back pain Onset Date: 10/19/23 PT Insurance Information: BCBS Total # of Visits Approved: 12 Per Physician Order Total # of Visits to Date: 11 No Show: 0 Canceled Appointment: 0 Pre-Treatment Pain: 5/10 Assessment Assessment: Pt reports she went to ER due to R hip pain s/p fall. Pt reports no increase in back pain. Xrays in ER confirm no issues of SI fusion or lumbar fusion. No R hip fx. Pt d/c this date to HEP. Pt with no concerns at this time. Recommend F/U with physician due to plateau. Plan Discharge Exercises/Modalities/Manual: See DocFlow Sheet Education: D/C to HEP Goals (Total # of Visits to Date: 11) Short Term Goals Time Frame for Short Term Goals: 6 visits Short Term Goal 1: Pt to report independence and compliance with HEP for core and LE strength.-MET [facility] Goals Time Frame for [facility] Goals : 12 visits Search Engine Marketing Manager Goal 1: Pt to improve Oswestery from 25/50 to <20/50.-NOT MET Search Engine Marketing Manager Goal 2: Pt to report worst pain 4/10 x 3 consecutive days to improve ADL abdelrahman.-NOT MET [facility] Goal 3: Pt to have to 4/5 horiz ABD to improve pt posture.-MET Post Treatment Pain: 5/10 Time In: 1307 Time Out: 1337 Total time; 30 Timed coded min: 30 Minutes Anaid Jerry, PT Date: 06/01/2024 documented in this encounter [facility] 06-01-2024 Hospital course Narrative Images from the original note were not included. [facility] Discharge Summary Patient: Sarah Harris : 1975 Referring Provider (secondary): Dr. Hood Graham Diagnosis: S/P lumbar fusion Date Treatment Initiated: 04/06/24 Date of Last Treatment: 06/01/24 PT Visit Information Onset Date: 10/19/23 PT Insurance Information: BCBS Total # of Visits Approved: 12 Total # of Visits to Date: 11 No Show: 0 Canceled Appointment: 0 Referring Provider (secondary): Dr. Hood Graham Frequency/Duration Days: 2 times per week Weeks: 6 weeks Treatment Received Patient Education/HEP, Back Education, Therapeutic Exercise, and Neuro Re-ed Pain Level: 5 (8/10 R hip) Assessment Assessment: Pt reports she went to ER due to R hip pain s/p fall. Pt reports no increase in back pain. Xrays in ER confirm no issues of SI fusion or lumbar fusion. No R hip fx. Pt d/c this date to HEP. Pt with no concerns at this time. Recommend F/U with physician due to plateau. Goals Short Term Goals Time Frame for Short Term Goals: 6 visits Short Term Goal 1: Pt to report independence and compliance with HEP for core and LE strength.-MET Search Engine Marketing Manager Goals Time Frame for [facility] Goals : 12 visits [facility] Goal 1: Pt to improve Oswestery from 25/50 to <20/50.-NOT MET Search Engine Marketing Manager Goal 2: Pt to report worst pain 4/10 x 3 consecutive days to improve ADL abdelrahman.-NOT MET Search Engine Marketing Manager Goal 3: Pt to have to 4/5 horiz ABD to improve pt posture.-MET Reason for Discharge Optimal Function Achieved Comments: Thank you for this referral Anaid Jerry, PT Date: 06/01/2024 documented in this encounter [facility] 05-29-2024 History of Present illness Narrative Images from the original note were not included. [facility] Daily Note Date: 05/29/2024 Patient Name: Sarah Harris : 1975 (48 y.o.) Referring Provider (secondary): Dr. Hood Graham Diagnosis: S/P lumbar fusion Treatment Diagnosis: Back pain Onset Date: 10/19/23 PT Insurance Information: BCBS Total # of Visits Approved: 12 Per Physician Order Total # of Visits to Date: 10 No Show: 0 Canceled Appointment: 0 Pre-Treatment Pain: 11/07 Assessment Assessment: Pt reports she fell out of bed and since has had increased pain of back and R knee. Pt to receive cortizone injection in R knee this date. Will cont x1 visit then D/C to HEP. Good abdelrahman to progression of shuttle squats this date. Plan Continue with current plan of care Exercises/Modalities/Manual: See DocFlow Sheet Education: Cont x1 visit then d/c to HEP Goals (Total # of Visits to Date: 10) Short Term Goals Time Frame for Short Term Goals: 6 visits Short Term Goal 1: Pt to report independence and compliance with HEP for core and LE strength.-MET Search Engine Marketing Manager Goals Time Frame for Search Engine Marketing Manager Goals : 12 visits [facility] Goal 1: Pt to improve Oswestery from 25/50 to <20/50.-NOT MET [facility] Goal 2: Pt to report worst pain 4/10 x 3 consecutive days to improve ADL abdelrahman.-NOT MET Search Engine Marketing Manager Goal 3: Pt to have to 4/5 horiz ABD to improve pt posture.-MET Post Treatment Pain: 11/07 Time In: 1303 Time Out: 1335 Timed Code Treatment Minutes: 32 Minutes Total time: 32 Minutes Anaid Jerry, PT Date: 05/29/2024 documented in this encounter [facility] 05-18-2024 History of Present illness Narrative Images from the original note were not included. [facility] Daily Note Date: 05/18/2024 Patient Name: Sarah Harris : 1975 (48 y.o.) Referring Provider (secondary): Dr. Hood Graham Diagnosis: S/P lumbar fusion Treatment Diagnosis: Back pain Onset Date: 10/19/23 PT Insurance Information: BCBS Total # of Visits Approved: 12 Per Physician Order Total # of Visits to Date: 9 No Show: 0 Canceled Appointment: 0 Pre-Treatment Pain: 4/10 Assessment Assessment: Pt reports back pain down to 4/10 this date. Pt reports difficulty sleeping due to R SI pain. Good abdelrahman to progression of shuttle S/L squat this date. Pt with no change in pain post session. Plan Continue with current plan of care Exercises/Modalities/Manual: See DocFlow Sheet Education: progression of shuttle resistance. Goals (Total # of Visits to Date: 9) Short Term Goals Time Frame for Short Term Goals: 6 visits Short Term Goal 1: Pt to report independence and compliance with HEP for core and LE strength.-MET Search Engine Marketing Manager Goals Time Frame for Search Engine Marketing Manager Goals : 12 visits Search Engine Marketing Manager Goal 1: Pt to improve Oswestery from 25/50 to <20/50.-NOT MET [facility] Goal 2: Pt to report worst pain 4/10 x 3 consecutive days to improve ADL abdelrahman.-NOT MET [facility] Goal 3: Pt to have to 4/5 horiz ABD to improve pt posture.-MET Post Treatment Pain: 4/10 Time In: 1305 Time Out : 1340 Timed Code Treatment Minutes: 33Minutes 33Minutes Anaid Jerry PT Date: 05/18/2024 documented in this encounter [facility] 05-15-2024 History of Present illness Narrative Images from the original note were not included. [facility] Daily Note Date: 05/15/2024 Patient Name: Sarah Harris : 1975 (48 y.o.) Referring Provider (secondary): Dr. Hood Graham Diagnosis: S/P lumbar fusion Treatment Diagnosis: Back pain Onset Date: 10/19/23 PT Insurance Information: BCBS Total # of Visits Approved: 12 Per Physician Order Total # of Visits to Date: 8 No Show: 0 Canceled Appointment: 0 Pre-Treatment Pain: 4/10 Assessment Assessment: Oswestry , pt improved from IE but still has not reached goal. Plan to cont x3 visits to cont to progress toward LTGs. Pt with good abdelrahman to progression of TBand and step height this date. Plan Continue with current plan of care Exercises/Modalities/Manual: See DocFlow Sheet Education: Improved Oswestry Goals (Total # of Visits to Date: 8) Short Term Goals Time Frame for Short Term Goals: 6 visits Short Term Goal 1: Pt to report independence and compliance with HEP for core and LE strength.-MET Search Engine Marketing Manager Goals Time Frame for [facility] Goals : 12 visits Search Engine Marketing Manager Goal 1: Pt to improve Oswestery from 25/50 to <20/50.-NOT MET Search Engine Marketing Manager Goal 2: Pt to report worst pain 4/10 x 3 consecutive days to improve ADL abdelrahman.-NOT MET [facility] Goal 3: Pt to have to 4/5 horiz ABD to improve pt posture.-MET Post Treatment Pain: 4/10 Time In: 1309 Time Out : 1337 Timed Code Treatment Minutes: 28 Minutes Total Treatment Time: 28 Minutes Anaid Jerry PT Date: 05/15/2024 documented in this encounter [facility] 05-11-2024 History of Present illness Narrative [facility] Date: 05/11/2024 Patient Name: Sarah Harris : 1975 Left voice mail with no reason for cancel. Sarah C Kendra Date: 05/11/2024 documented in this encounter [facility] 05-09-2024 History of Present illness Narrative Images from the original note were not included. [facility] Daily Note Date: 05/09/2024 Patient Name: Sarah Harris : 1975 (48 y.o.) Referring Provider (secondary): Dr. Hood Graham Diagnosis: S/P lumbar fusion Treatment Diagnosis: Back pain Onset Date: 10/19/23 PT Insurance Information: BCBS Total # of Visits Approved: 12 Per Physician Order Total # of Visits to Date: 7 No Show: 0 Canceled Appointment: 0 Pre-Treatment Pain: 4/10 Assessment Assessment: Pt followed up with physician, MRI is unremarkable, but her R SI needs sx. Pt scheduled to see Dr. Elliot Noguera on Jun 28. Pt would like to cont with remaining POC to improve strength and activity abdelrahman. Good abdelrahman to progression of reps this date with prone tball. Plan Continue with current plan of care Exercises/Modalities/Manual: See DocFlow Sheet Education: progression of rep with prone tball bird dogs to improve core stabilization Goals (Total # of Visits to Date: 7) Short Term Goals Time Frame for Short Term Goals: 6 visits Short Term Goal 1: Pt to report independence and compliance with HEP for core and LE strength.-MET Search Engine Marketing Manager Goals Time Frame for Search Engine Marketing Manager Goals : 12 visits Search Engine Marketing Manager Goal 1: Pt to improve Oswestery from 25/50 to <20/50.-NOT MET [facility] Goal 2: Pt to report worst pain 4/10 x 3 consecutive days to improve ADL abdelrahman.-NOT MET [facility] Goal 3: Pt to have to 4/5 horiz ABD to improve pt posture.-MET Post Treatment Pain: 4/10 Time In: 1057 Time Out: 1125 Timed Code Treatment Minutes: 28 Minutes Total Treatment Time: 28 Minutes Anaid Jerry, PT Date: 05/09/2024 documented in this encounter [facility] 05-04-2024 History of Present illness Narrative Physical Therapy [facility] Date: 05/04/2024 Patient Name: Sarah Harris : 1975 Pt Cancelled Appt due to Illness Saarh Gardner Date: 05/04/2024 documented in this encounter [facility] 05-01-2024 History of Present illness Narrative Images from the original note were not included. [facility] Daily Note Date: 05/01/2024 Patient Name: Sarah Harris : 1975 (48 y.o.) Referring Provider (secondary): Dr. Hood Graham Diagnosis: S/P lumbar fusion Treatment Diagnosis: Back pain Onset Date: 10/19/23 PT Insurance Information: BCBS Total # of Visits Approved: 12 Per Physician Order Total # of Visits to Date: 6 No Show: 0 Canceled Appointment: 0 Pre-Treatment Pain: 5/10 Assessment Assessment: Pt reports no noted improvement with regard to pain at this time. Pt reports post exercise pain increases to 10/10. Ther ex modified several sessions without relief. Plan to Will cont x1 visit then d/c to HEP but will await outcome of followup on 05/05/24 prior to d/c. HorizABD =4+/5 B/L Plan Continue with current plan of care Exercises/Modalities/Manual: See DocFlow Sheet Education: will cont x1 visit then place on hold pending outcome of follow up with physcian Goals (Total # of Visits to Date: 6) Short Term Goals Time Frame for Short Term Goals: 6 visits Short Term Goal 1: Pt to report independence and compliance with HEP for core and LE strength.-MET [facility] Goals Time Frame for [facility] Goals : 12 visits Search Engine Marketing Manager Goal 1: Pt to improve Oswestery from 25/50 to <20/50.-NOT MET [facility] Goal 2: Pt to report worst pain 4/10 x 3 consecutive days to improve ADL abedlrahman.-NOT MET Search Engine Marketing Manager Goal 3: Pt to have to 4/5 horiz ABD to improve pt posture.-MET Post Treatment Pain: 6/10 Time In: 1016 Time Out: 1047 Timed Code Treatment Minutes: 31 Minutes Total time: 31 Minutes Anaid Jerry PT Date: 05/01/2024 Images from the original note were not included. [facility] Progress Report Date: 05/01/2024 Patient: Sarah Harris : 1975 Referring Provider (secondary): Dr. Hood Graham Diagnosis: S/P lumbar fusion Treatment Diagnosis: Back pain Onset Date: 10/19/23 PT Insurance Information: BCBS Total # of Visits Approved: 12 Per Physician Order Total # of Visits to Date: 6 No Show: 0 Canceled Appointment: 0 Assessment Assessment: Pt reports no noted improvement with regard to pain at this time. Pt reports post exercise pain increases to 10/10. Ther ex modified several sessions without relief. Plan to Will cont x1 visit then d/c to HEP but will await outcome of followup on 05/05/24 prior to d/c. HorizABD =4+/5 B/L Therapy Prognosis: Good Plan Continue with current plan of care x1 visit then d/c to HEP pending outcome of followup Goals Short Term Goals Time Frame for Short Term Goals: 6 visits Short Term Goal 1: Pt to report independence and compliance with HEP for core and LE strength.-MET [facility] Goals Time Frame for Search Engine Marketing Manager Goals : 12 visits Search Engine Marketing Manager Goal 1: Pt to improve Oswestery from 25/50 to <20/50.-NOT MET [facility] Goal 2: Pt to report worst pain 4/10 x 3 consecutive days to improve ADL abdelrahman.-NOT MET [facility] Goal 3: Pt to have to 4/5 horiz ABD to improve pt posture.-MET Anaid Jerry PT Date: 05/01/2024 documented in this encounter [facility] 04-25-2024 History of Present illness Narrative Images from the original note were not included. [facility] Outpatient Physical Therapy Daily Note Date: 04/25/2024 Patient Name: Sarah Harris : 1975 (48 y.o.) Referring Provider (secondary): Dr. Hood Graham Diagnosis: S/P lumbar fusion Treatment Diagnosis: Back pain Onset Date: 10/19/23 PT Insurance Information: BCBS Total # of Visits Approved: 12 Per Physician Order Total # of Visits to Date: 5 No Show: 0 Canceled Appointment: 0 Pre-Treatment Pain: /10 Assessment Assessment: Pt reports increased soreness since last visit in chest and upper back. Decreased Tband resistance this date with improved abdelrahman. Pt able to complete 4 stepups B/L this date. Pt reports no increased pain post session, pt notes relief/stretch with prone tball ex's. Plan Continue with current plan of care Exercises/Modalities/Manual: See DocFlow Sheet Education: Decrease of Tband for rows, ext and palof due to soreness Goals (Total # of Visits to Date: 5) Short Term Goals Time Frame for Short Term Goals: 6 visits Short Term Goal 1: Pt to report independence and compliance with HEP for core and LE strength.-MET Search Engine Marketing Manager Goals Time Frame for Chcf Goals : 12 visits Search Engine Marketing Manager Goal 1: Pt to improve Oswestery from 25/50 to <20/50. Search Engine Marketing Manager Goal 2: Pt to report worst pain 4/10 x 3 consecutive days to improve ADL abdelrahman. Chcf Goal 3: Pt to have to 4/5 horiz ABD to improve pt posture. Post Treatment Pain: 4/10 Time In: 1022 Time Out: 1048 Timed Code Treatment Minutes: 26 Minutes Total Treatment Time: 26 Minutes Anaid Jerry, PT Date: 04/25/2024 documented in this encounter [facility] 04-20-2024 History of Present illness Narrative Images from the original note were not included. [facility] Outpatient Physical Therapy Daily Note Date: 04/20/2024 Patient Name: Sarah Harris : 1975 (48 y.o.) Referring Provider (secondary): Dr. Hood Graham Diagnosis: S/P lumbar fusion Treatment Diagnosis: Back pain Onset Date: 10/19/23 PT Insurance Information: BCBS Total # of Visits Approved: 12 Per Physician Order Total # of Visits to Date: 4 No Show: 0 Canceled Appointment: 0 Pre-Treatment Pain: 5/10 Assessment Assessment: Pt reports seeing ortho, now on Torodol for knee pain. Back pain this date rated 5/10. Good abdelrahman to progression of ther ex this date. Plan Continue with current plan of care Exercises/Modalities/Manual: See DocFlow Sheet Education: Progression of therex this date Goals (Total # of Visits to Date: 4) Short Term Goals Time Frame for Short Term Goals: 6 visits Short Term Goal 1: Pt to report independence and compliance with HEP for core and LE strength. Chcf Goals Time Frame for Search Engine Marketing Manager Goals : 12 visits Chcf Goal 1: Pt to improve Oswestery from 25/50 to <20/50. Chcf Goal 2: Pt to report worst pain 4/10 x 3 consecutive days to improve ADL abdelrahman. Search Engine Marketing Manager Goal 3: Pt to have to 4/5 horiz ABD to improve pt posture. Post Treatment Pain: 5/10 Time In: 0950 Time Out: 1020 Timed Code Treatment Minutes: 30 Minutes Total Treatment Time: 30 Minutes Anaid Jerry, PT Date: 04/20/2024 documented in this encounter [facility] 04-14-2024 History of Present illness Narrative Images from the original note were not included. [facility] Outpatient Physical Therapy Daily Note Date: 04/14/2024 Patient Name: Sarah Harris : 1975 (48 y.o.) Referring Provider (secondary): Dr. Hood Graham Diagnosis: S/P lumbar fusion Treatment Diagnosis: Back pain Onset Date: 10/19/23 PT Insurance Information: BCBS Total # of Visits Approved: 12 Per Physician Order Total # of Visits to Date: 2 No Show: 0 Canceled Appointment: 0 Pre-Treatment Pain: 10 R knee Assessment Assessment: Pt reports back is not painful this date, R knee medially is very painful. Pt reports she felt a pull/pop last Wednesday. Good abdelrahman to ther ex this date, held step taps due to R knee pain. Plan to progress per pt abdelrahman. Plan Continue with current plan of care Exercises/Modalities/Manual: See DocFlow Sheet Education: Seated R LE distraction for pain relief of R knee Goals (Total # of Visits to Date: 2) Short Term Goals Time Frame for Short Term Goals: 6 visits Short Term Goal 1: Pt to report independence and compliance with HEP for core and LE strength. Search Engine Marketing Manager Goals Time Frame for Search Engine Marketing Manager Goals : 12 visits Search Engine Marketing Manager Goal 1: Pt to improve Oswestery from 25/50 to <20/50. Search Engine Marketing Manager Goal 2: Pt to report worst pain 4/10 x 3 consecutive days to improve ADL abdelrahman. Chcf Goal 3: Pt to have to 4/5 horiz ABD to improve pt posture. Post Treatment Pain: 10 R knee Time In: 0950 Time Out: 1027 Timed Code Treatment Minutes: 37 Minutes Total Treatment Time: 37 Minutes Anaid Jerry, PT Date: 04/14/2024 documented in this encounter [facility] 04-13-2024 History of Present illness Narrative Occupational Therapy [facility] Date: 04/13/2024 Patient Name: Sarah Harris : 1975 Pt Cancelled Appt due to Illness Sarah Gardner Date: 04/13/2024 documented in this encounter [facility] 04-06-2024 History of Present illness Narrative Images from the original note were not included. [facility] Date: 04/06/2024 Outpatient Physical Therapy Plan of Care [facility]#: [id number] Patient: Sarah Harris : 1975 Referring Provider (secondary): Dr. Hood Graham Diagnosis: S/P lumbar fusion Onset Date: 10/19/23 Treatment Diagnosis: Back pain Assessment Body Structures, Functions, Activity Limitations Requiring Skilled Therapeutic Intervention: Decreased functional mobility , Decreased ADL status, Decreased ROM, Decreased strength, Decreased endurance, Decreased balance, Increased pain, Decreased posture Assessment: Pt s/p back sx but still with preexisting pain/activity limitations. Pt to benefit from ther ex for core strength and hip strengthening. Pt also awaiting MRI approval. Therapy Prognosis: Good Treatment Plan Days: 2 times per week Weeks: 6 weeks Total # of Visits Approved: 12 Patient Education/HEP, Back Education, Therapeutic Exercise, Manual Therapy: Myofacial Release/Cupping, Manual Therapy: Mobilization/Manipulation, and Neuro Re-ed Goals Short Term Goals Time Frame for Short Term Goals: 6 visits Short Term Goal 1: Pt to report independence and compliance with HEP for core and LE strength. Chcf Goals Time Frame for Chcf Goals : 12 visits Ch[facility] Goal 1: Pt to improve Oswestery from 25/50 to <20/50. Chcf Goal 2: Pt to report worst pain 4/10 x 3 consecutive days to improve ADL abdelrahman. Search Engine Marketing Manager Goal 3: Pt to have to 4/5 horiz ABD to improve pt posture. Anaid Jerry, PT Date: 04/06/2024 Date: 04/06/2024 Physician Signature By signing above or cosigning electronically, I have reviewed this Plan of Care and certify a need for medically necessary rehabilitation services. documented in this encounter [facility] 02-14-2024 Note I was asked to see [...] I offered to refer her to an plaster block layer for a food product inspector consult. Patient did not show any interest [...] They had no other questions or concerns. [facility] 02-14-2024 Note Orthopaedic Surgery Subjective Follow-up, Pain, [...] Past Medical History: Diagnosis Date Diabetes mellitus ([facility]) Hypertension Objective General: Body mass index is [...] Patient was seen by Zayra Lake her community health nursing director for high BMI patient's for further intervention protocol. We recommended the patient work with her PCP and stamp presser and aim to reach a BMI of [...] today. Options for (more content not included)... [facility] 10-19-2023 Note PROCEDURE: XR LUMBAR SPINE 1 [...] by: Kalyan Lund MD 10/19/23 Final result [facility] 10-01-2023 Note PROCEDURE: XR CHEST (2 VW) [...] by: Henok Iyer MD 10/01/23 Final result [facility] 08-02-2023 History of Present illness Narrative The [...] findings. Additions if any: Keila Hemphill MD, [facility] Orthopedics and Sports Medicine [employer] [facility] documented in this encounter [facility] 08-02-2023 Instructions Papa Prater - 08/02/2023 10:30 [...] associated with corticosteroids. documented in this encounter [facility] 07-02-2023 Miscellaneous Notes Operative Report DATE PERFORMED: [...] patient was then turned supine on the [facility], taken to recovery room in stable and satisfactory condition, having tolerated the procedure well. Dictated By: MD Elliot Umanzor MD ATTENDING JS/MedQ JOB: [id number] DOC: [id number] Discontinued IV to left hand, catheter intact. Covered with dressing. Pt tolerated well. POST OPERATIVE/PROCEDURE NOTE Sarah Harris ([id number]) SURGEON Surgeon(s) and Role: * Elliot Zheng MD - Primary AUTOMATION AND CONTROLS SUPERVISOR None ANESTHESIOLOGIST IT TECHNICIAN: Terry Vicente APRN-IT TECHNICIAN SURGICAL STAFF Exercise Science Instructor: Ana Harper RN Scrub Person: Susy Michaud Exercise Science Instructor Assist: Jackelin Remy RN PROCEDURE PERFORMED Procedure(s) [...] 2023 9:41 AM documented in this encounter [facility] 07-02-2023 Nurse Note Discontinued IV to left hand, catheter intact. Covered with dressing. Pt tolerated well. [facility] 07-02-2023 Surgery Postoperative evaluation and management note [...] patient was then [facility] [place] [facility], taken to recovery room in stable and satisfactory condition, having tolerated the procedure well. Dictated By: MD Elliot Umanzor MD ATTENDING /MedQ JOB: [id number] DOC: [id number] [facility] 07-02-2023 Hospital Discharge instructions Liss Iyer RN - 07/02/2023 9:48 AM EST POST SPINAL BLOCK/DISCOGRAM HOME INSTRUCTIONS Dr. Zheng [facility] Clin[facility] Activity at Home - Gentle activities [...] OR LEGAL DECISIONS. documented in this encounter [facility] 07-02-2023 Surgery Postoperative evaluation and management note POST OPERATIVE/PROCEDURE NOTE Sarah Harris ([id number]) SURGEON Surgeon(s) and Role: * Elliot Zheng MD - Primary AUTOMATION AND CONTROLS SUPERVISOR None ANESTHESIOLOGIST IT TECHNICIAN: Terry Vicente APRN-IT TECHNICIAN SURGICAL STAFF Exercise Science Instructor: Ana Harper RN Scrub Person: Susy Michaud Exercise Science Instructor Assist: Jackelin Remy RN PROCEDURE PERFORMED Procedure(s) [...] Zheng MD July 02, 2023 9:41 AM [facility] 07-02-2023 Nurse Note Patient transported back to [place] [id number] via cart by HEAVENLY RODRÍGUEZ. Monitors applied and report given to HEAVENLY FERNANDEZ documented in this encounter [facility] 07-02-2023 Nurse Surgical operation note [facility] cart by HEAVENLY RODRÍGUEZ. Monitors applied and report given to HEAVENLY FERNANDEZ [facility] 02-11-2023 History of Present illness Narrative 02/11/23 [...] Evaluation/Screen Completed? yes Therapist Information License # [id number] General Information Pertinent History of Current Problem Patient completed postoperative PT session at OP clinic. documented in this encounter [facility] 02-11-2023 Miscellaneous Notes [id number]- Attempted to initiate OT evaluation. Pt was dressed and in the wc getting ready to leave when I approached. Pt declined need for OT. Discharge instructions provided, pt states understanding and denies questions. PT in with pt at This time. Omero Carpenter CRNA administered benadryl for itching at this time POST OPERATIVE/PROCEDURE NOTE Sarah Harris ([id number]) SURGEON Surgeon(s) and Role: * Elliot Zheng MD - Primary AUTOMATION AND CONTROLS SUPERVISOR Mercedes ANESTHESIOLOGIST IT TECHNICIAN: Omero Carpenter APRN-IT TECHNICIAN SURGICAL STAFF Exercise Science Instructor: Ana Harper RN; Ab Justin RN; Hao Barnhart RN Registered Nurse Mental Health Orderly: Clara Long RN Scrub Person: Susy Michaud; [...] 2023 1:40 PM documented in this encounter [facility] 02-11-2023 Progress note Formatting of t his note might be different from the original. [id number]- Attempted to initiate OT evaluation. Pt was dressed and in the wc getting ready to leave when I approached. Pt declined need for OT. [facility] 02-11-2023 Nurse Note Discharge instructions provided, pt states understanding and denies questions. PT in with pt at This time. [facility] 02-11-2023 Hospital Discharge instructions Margaret Ortiz RN [...] this carefully. Please attend family, community and zoroastrian events as soon as possible after your [...] cannot be sent through Care Everywhere.scopolamine transdermal (Comoran)documented in this encounter [facility] 02-11-2023 Nurse Note Omero Carpenter CRNA administered benadryl for itching at this time [facility] 02-11-2023 Nurse Note Patient transported via cart to PACU area by HEAVENLY HARTLEY and COLETTE NOBLE. Monitors applied and report given to JIMRN and DANYELLRN documented in this encounter [facility] 02-11-2023 Nurse Surgical operation note Patient transported via cart to PACU area by HEAVENLY HARTLEY and COLETTE NOBLE. Monitors applied and report given to HEAVENLY FERNANDEZ and HEAVENLY CHILD [facility] 02-11-2023 Surgery Postoperative evaluation and management note POST OPERATIVE/PROCEDURE NOTE Sarah Harris ([id number]) SURGEON Surgeon(s) and Role: * Elliot Zheng MD - Primary AUTOMATION AND CONTROLS SUPERVISOR Mercedes ANESTHESIOLOGIST IT TECHNICIAN: Omero Carpenter APRN-IT TECHNICIAN SURGICAL STAFF Exercise Science Instructor: Ana Harper RN; Ab Justin RN; Hao Barnhart RN Registered Nurse Mental Health Orderly: Clara Long RN Scrub Person: Susy Michaud; [...] Zheng MD February 11, 2023 1:40 PM [facility] 12-15-2022 History of Present illness Narrative The [...] therapy, medications, SI belt, therapeutic injections. Inadequate senior care relief from therapeutic injection. 100% relief while [...] or more provocative maneuvers including thigh thrust, NEDYA, distraction test. Diagnostic imaging reveals degenerative changes [...] therapy, medications, SI belt, therapeutic injections. Inadequate long term care administrator relief from therapeutic injection. 100% relief while [...] findings. Additions if any: Keila Hemphill MD, [facility] Orthopedics and Sports Medicine [employer] [facility] documented in this encounter [facility] 12-15-2022 Instructions Papa Prater - 12/15/2022 1:30 [...] associated with corticosteroids. documented in this encounter [facility] 10-23-2022 History of Present illness Narrative Associated [...] PERCUTANEOUS W/ IMAGE 2008 HERNIA REPAIR Vitals: 10/23/22 1242 Weight: (!) [...] avoid surgery. Rx sent for Supartz to [facility]. Sarah may call the office with any questions or concerns. Referrals: None Medications prescribed today: Supartz to [facility] in [place] Follow up plan: Sports US guided left sacroiliac joint injection with Supartz and PLATFORM POWER TECHNICIAN B26593, Dex J8540, Tri J3490 Severity of problem(s): [...] PERCUTANEOUS W/ IMAGE 2008 HERNIA REPAIR Vitals: 10/23/22 1242 Weight: (!) [...] avoid surgery. Rx sent for Ellen to [facility]. Sarah may call the office with any questions or concerns. Referrals: None Medications prescribed today: Supartz to [facility] in [place] Follow up plan: Sports US guided left sacroiliac joint injection with Supartz and PLATFORM POWER TECHNICIAN [id number], Dex J8540, Tri J3490 Severity of problem(s): [...] findings. Additions if any: Keila Hemphill MD, [facility] Orthopedics and Sports Medicine [employer] [facility] documented in this encounter [facility] 10-23-2022 Instructions Papa Prater - 10/23/2022 1:00 [...] associated with corticosteroids. documented in this encounter [facility] 09-23-2022 Hospital Discharge instructions Kelley Shannon DO [...] us to take care of you at [facility]. In the next few days you may receive a survey by mail or e-mail asking about the care you received during this visit. Please complete this if you are able, as this feedback helps us provide the best care possible. The following attachments cannot be sent through Care Everywhere.Pneumonia (Comoran)documented in this encounter RICHELLE BRIANNA [facility] Work Phone: 09-09-2022 Hospital course Narrative Discussed with the patient and all questioned fully answered. She will call me if any problems arise. IV removed. Educated on how to empty J/P bulb and to keep track of output. Patient wheeled off unit by [facility]. documented in this encounter [facility] [employer] Work Phone: 09-09-2022 History of Present illness [...] # 1.55 1.10 - 3.70 k/uL [facility] [place] # 0.84 0.10 - 1.20 k/uL Absolute [...] complication, without long-term current use of insulin ([facility]) Osteoarthritis of right knee RALH, BSO, MAILE, Cysto 09/08/22 Resolved Problems: * No resolved hospital problems. * Attending: Dr. Campos Please perfectserve the resident named below with questions and concerns. Ashwin Zapata DO OBGYN Resident Pgr: [phone] 09/09/2022, 7:58 AM Software Engineer Intern Oncology Attending Note Patient seen and evaluated [...] today Proceed to OR today as scheduled BRUNILDA Campos MD Spoke with Juani at Dr. Campos's office. Informed that pt has been taking Celebrex 200 mg BID with most recent dose this a.m. States that she will inform Dr. Campos. [facility]: [facility]-08[facility]2022 Evaluation note Diagnosis Pelvic mass- [...] obstruction or gangrene [facility] Phone: [phone] History of Present illness Narrative* Dayanna Springer, PT - 08/17/2022 9:00 AM EDT Images from the original note were not included. [facility] Outpatient Physical Therapy Daily Note Date: 08/17/2022 Patient Name: Sarah Harris : 1975 (47 y.o.) Referring Provider (secondary): Dr Elliot Zheng Diagnosis: M46.1- sacroilitis;M47,26 Lumbar spondylosis with radiculopathy Treatment Diagnosis: Back Pain Onset Date: 06/16/22 PT Insurance Information: BS Total # of Visits Approved: 12 Per Physician Order Total # of Visits to Date: 8 Canceled Appointment: 1 Plan of Care/Certification Expiration Date: 08/31/22 Pre-Treatment Pain: 1/10 Assessment Assessment: Patient reports gave her spinal injection last week. Pain 1/10 back, 0/10 in leg. Completed therex and traction per Doc Flow. Reviewed HEP and issued second handout. Patient ROM WFL, BLE strength WFL. Plan to hold PT, patient to call if pain returns. Plan Place pt on hold Exercises/Modalities/Manual: See DocFlow Sheet Education: On HEP Access Code: [email or web address] URL: [email or web address] Date: 08/17/2022 Prepared by: Dayanna Springer Exercises [...] back 4/10 at worst x3 days-not met Chcf Goals Time Frame for Search Engine Marketing Manager Goals : 12 Search Engine Marketing Manager Goal 1: Decrease pain low back 2/10 at worst x3 days-Met Chcf Goal 2: Improved functional mobility with Oswestry score <10/45-Met Post Treatment Pain: 0/10 Time In: 8:50 Time Out : 9:30 Timed Code Treatment Minutes: 22 Minutes Total Treatment Time: 40 Minutes Dayanna Springer PT Date: 08/17/2022 * Dayanna Springer PT - 08/17/2022 9:00 AM EDT Images from the original note were not included. [facility] Outpatient Physical Therapy Progress Report Date: [...] back 4/10 at worst x3 days-not met Chcf Goals Time Frame for Chcf Goals : 12 Search Engine Marketing Manager Goal 1: Decrease pain low back 2/10 at worst x3 days-Met Chcf Goal 2: Improved functional mobility with Oswestry score <10/45-Met Dayanna Springer, PT Date: 08/17/2022 documented [facility] [employer] Work Phone: [phone]) 239-890503-17-2023 History of Present illness Narrative* Jenny Fagan - 08/14/2022 12:40 PM EDT The patient [...] findings. Additions if any: Keila Hemphill [facility], [facility] History of Present illness Narrative* Jenny Fagan [...] findings. Additions if any: Keila Hemphill MD, [facility] Orthopedics and Sports Medicine [employer] - [facility] History of Present illness Narrative* Sarah D Chavo - 08/11/2022 9:00 AM EDT Images from the original note were not included. [facility] Outpatient Physical Therapy Daily Note Date: [...] low back 4/10 at worst x3 days Search Engine Marketing Manager Goals Time Frame for Search Engine Marketing Manager Goals : 12 Search Engine Marketing Manager Goal 1: Decrease pain low back 2/10 at worst x3 days Chcf Goal 2: Improved functional mobility with Oswestry score <10/45 Post Treatment Pain: 4/10 Time In: 0900 Time Out : 0940 Timed Code Treatment Minutes: 23 Minutes Total Treatment Time: 38 Minutes Sarah Ana Chavo CARDIAC TECHNOLOGIST Date: 08/11/2022 [facility] Work Phone: [phone]) 200-198002-28-2023 History of Present illness Narrative* Dayanna Springer, PT - 07/28/2022 8:30 AM EST Images from the original note were not included. [facility] Outpatient Physical Therapy Daily Note Date: [...] low back 4/10 at worst x3 days Chcf Goals Time Frame for Search Engine Marketing Manager Goals : 12 Search Engine Marketing Manager Goal 1: Decrease pain low back 2/10 at worst x3 days Chcf Goal 2: Improved functional mobility with Oswestry score <10/45 Post Treatment Pain: 4/10 Time In: 8:30 Time Out : 9:05 Timed Code Treatment Minutes: 15 Minutes Total Treatment Time: 35 Minutes Dayanna Springer, PT Date: 07/28/2022 documented in this encounterB[facility] [employer] Phone: [phone]) 460-218802-22-2023 History of Present illness Narrative* Dayanna Springer, PT - 07/22/2022 9:30 AM EST Images from the original note were not included. [facility] Outpatient Physical Therapy Daily Note Date: 07/22/2022 Patient Name: Sarah Harris : 1975 (47 y.o.) Referring Provider (secondary): Dr Elliot Zheng Diagnosis: M46.1- sacroilitis;M47,26 Lumbar spondylosis with radiculopathy Treatment Diagnosis: Back Pain Onset Date: 06/16/22 PT Insurance Information: BS Total # of Visits Approved: 12 Per [...] low back 4/10 at worst x3 days Search Engine Marketing Manager Goals Time Frame for Chcf Goals : 12 Search Engine Marketing Manager Goal 1: Decrease pain low back 2/10 at worst x3 days Search Engine Marketing Manager Goal 2: Improved functional mobility with Oswestry score <10/45 Post Treatment Pain: 5/10 Time In: 9:30 Time Out : 10:10 Timed Code Treatment Minutes: 20 Minutes Total Treatment Time: 40 Minutes Dayanna Springer, PT Date: 07/22/2022 documented in this encounterBON [employer] Work Phone: 1([phone]) 370-536602-20-2023 History of Present illness Narrative* Dayanna Springer, PT - 07/20/2022 8:00 AM EST Images from the original note were not included. [facility] Outpatient Physical Therapy Evaluation Date: 07/20/2022 [...] low back 4/10 at worst x3 days Search Engine Marketing Manager Goals Time Frame for Search Engine Marketing Manager Goals : 12 Chcf Goal 1: Decrease pain low back 2/10 at worst x3 days Search Engine Marketing Manager Goal 2: Improved functional mobility with Oswestry score <10/45 Patient's Goal: Be rid of back pain Total Treatment Time: 45 Time In: 8:00 Time Out: 8:45 Dayanna Springer, PT Date: 07/20/2022 documented in this encounterB[facility] [employer] Work Phone: [phone]) 131-363401-24-2023 History of Present illness Narrative* Jenny Fagan [...] findings. Additions if any: Keila Hemphill MD, [facility] documented in this encounterOhiohealth [facility]01-24-2023 Instructions* Patient Instructions* Jose London ATC - [...] effects associated with corticosteroids. documented in this encounterOhiohealth [facility]11-07-2022 History of Present illness Narrative* Dayanna Springer, PT - 04/06/2022 8:00 AM EST Images from the original note were not included. [facility] Outpatient Physical Therapy Daily Note Date: 04/06/2022 Patient Name: Sarah Harris : 1975 (46 y.o.) Referring Provider (secondary): Dr. Ministerio Martínez and Dr. Hart Diagnosis: Lumbosacral Spinal Stenosis, Pain in hip, pain in thigh Treatment Diagnosis: Back Pain Onset Date: 01/21/22 PT Insurance Information: BS Total # of Visits Approved: 12 Per Physician Order Total # of Visits to Date: 10 Plan of Care/Certification Expiration Date: 04/03/22 Pre-Treatment Pain: 5/10 Assessment Assessment: Patient c/o back pain /. Completed therex and manual therapy per Doc Flow. Strength B LE 5/. Trunk ROM limited 25%; tightness in low [...] by pain-Met STG Goal 3 Status:: Met Chcf Goals Time Frame for Search Engine Marketing Manager Goals : 12 Search Engine Marketing Manager Goal 1: Decrease pain low back 2/10 at worst x3 days-Not Met Search Engine Marketing Manager Goal 2: Improved functional mobility with Oswestry score <10/45- Not MET Post Treatment Pain: 4/10 Time In: 8:00 Time Out : 8:35 Timed Code Treatment Minutes: 35 Minutes Total Treatment Time: 35 Minutes Dayanna Springer, PT Date: 04/06/2022 documented in this encounterB[facility] [employer] Phone: 1(954) 316-177111-07-2022 Hospital course Narrative* Dayanna Springer, PT - 04/06/2022 8:00 AM EST Images from the original note were not included. [facility] Outpatient Physical Therapy Discharge Summary Patient: Sarah Harris : 1975 Referring Provider (secondary): Dr. Ministerio Martínez and Dr. Hart Diagnosis: Lumbosacral Spinal Stenosis, Pain in hip, pain in thigh Date Treatment Initiated: 02/24/22 Date of Last Treatment: 04/06/22 PT Visit Information Onset Date: 01/21/22 PT Insurance Information: BCBS Total # of Visits to Date: 10 [...] PT Date: 04/06/2022 documented in this encounterBON [employer] [facility] [employer] Work Phone: 1([phone]) 365-158611-02-2022 History of Present illness Narrative* Jenn Carrasco - 04/01/2022 8:30 AM EDT Images from the original note were not included. Physical Therapy [facility] Outpatient Physical Therapy Daily Note Date: [...] by pain-Met STG Goal 3 Status:: Met Chcf Goals Time Frame for Search Engine Marketing Manager Goals : 12 Chcf Goal 1: Decrease pain low back 2/10 at worst x3 days Chcf Goal 2: Improved functional mobility with Oswestry score <10/45 Post Treatment Pain: 5/10 Time In: 0823 Time Out : 0901 Timed Code Treatment Minutes: 38 Minutes Total Treatment Time: 38 Minutes Jenn Carrasco ,CARDIAC TECHNOLOGIST Date: 04/01/2022 documented in this encounterBON [employer] Phone: [phone]) 642-561510-25-2022 History of Present illness Narrative* Dayanna Springer, PT - 03/24/2022 11:15 AM EDT Images from the original note were not included. [facility] Outpatient Physical Therapy Daily Note Date: 03/24/2022 Patient Name: Sarah Harris : 1975 (46 y.o.) Referring Provider (secondary): Dr. Ministerio Martínez Diagnosis: Lumbosacral Spinal Stenosis, Pain in hip, pain in thigh Treatment Diagnosis: Back Pain Onset Date: 01/21/22 PT Insurance Information: BS Total # of Visits Approved: 12 Per [...] by pain-Met STG Goal 3 Status:: Met Chcf Goals Time Frame for Search Engine Marketing Manager Goals : 12 Search Engine Marketing Manager Goal 1: Decrease pain low back 2/10 at worst x3 days Chcf Goal 2: Improved functional mobility with Oswestry score <10/45 Post Treatment Pain: 2/10 Time In: 11:15 Time Out : 11:55 Timed Code Treatment Minutes: 40 Minutes Total Treatment Time: 40 Minutes Dayanna Springer, PT Date: 03/24/2022 documented in this encounterBON [employer] [facility] [employer] Work Phone: [phone]) 438-929610-20-2022 History of Present illness Narrative* Jenn Carrasco - 03/19/2022 11:15 AM EDT Images from the original note were not included. Physical Therapy [facility] Outpatient Physical Therapy Daily Note Date: 03/19/2022 Patient Name: Sarah Harris : 1975 (46 y.o.) Referring Provider (secondary): Dr. Ministerio Martínez Diagnosis: Lumbosacral Spinal Stenosis, Pain in hip, pain in thigh Treatment Diagnosis: Back Pain Onset Date: 01/21/22 PT Insurance Information: BS Total # of Visits Approved: 12 Per [...] by pain STG Goal 3 Status:: Met Chcf Goals Time Frame for Chcf Goals : 12 Search Engine Marketing Manager Goal 1: Decrease pain low back 2/10 at worst x3 days Chcf Goal 2: Improved functional mobility with Oswestry score <10/45 Post Treatment Pain: 2/10 Time In: 1115 Time Out : 1153 Timed Code Treatment Minutes: 39 Minutes Total Treatment Time: 39 Minutes Jenn Carrasco PTA Date: 03/19/2022 documented in this encounterBON [employer] [facility] [employer] Work Phone: [phone]) 107-174010-18-2022 History of Present illness Narrative* Dayanna Springer, PT - 03/17/2022 12:45 PM EDT Images from the original note were not included. [facility] Physical Therapy Daily Note Date: [...] by pain STG Goal 3 Status:: Met Chcf Goals Time Frame for Search Engine Marketing Manager Goals : 12 Chcf Goal 1: Decrease pain low back 2/10 at worst x3 days Chcf Goal 2: Improved functional mobility with Oswestry score <10/45 Post Treatment Pain: 0/10 Time In: 12:45 Time Out : 13:25 Timed Code Treatment Minutes: 40 Minutes Total Treatment Time: 40 Minutes Dayanna Springer PT Date: 03/17/2022 documented in this encounterBON [employer] Work Phone: [phone] 131-831310-06-2022 History of Present illness Narrative* Jenn Carrasco - 03/05/2022 11:15 AM EDT Images from the original note were not included. Physical Therapy [facility] Outpatient Physical Therapy Daily Note Date: 03/05/2022 Patient Name: Sarah Harris : 1975 (46 y.o.) Referring Provider (secondary): Dr. Ministerio Martínez Diagnosis: Lumbosacral Spinal Stenosis, Pain in hip, pain in thigh Treatment Diagnosis: Back Pain Onset Date: 01/21/22 PT Insurance Information: BS Total # of Visits Approved: 12 Per [...] for 15 minutes before limited by pain Chcf Goals Time Frame for Chcf Goals : 12 Chcf Goal 1: Decrease pain low back 2/10 at worst x3 days Chcf Goal 2: Improved functional mobility with Oswestry score <10/45 Post Treatment Pain: 5/10 Time In: 1109 Time Out : 1150 Timed Code Treatment Minutes: 41 Minutes Total Treatment Time: 41 Minutes Jenn Carrasco PTA Date: 03/05/2022 documented in this [facility]LE[facility] [employer] Work Phone: [phone] 311-489110-04-2022 History of Present illness Narrative* Dayanna Springer, PT - 03/03/2022 11:00 AM EDT Images from the original note were not included. [facility] Outpatient Physical Therapy Daily Note Date: 03/03/2022 Patient Name: Sarah Harris : 1975 (46 y.o.) Referring Provider (secondary): Dr. Ministerio Martínez Diagnosis: Lumbosacral Spinal Stenosis, Pain in hip, pain in thigh Treatment Diagnosis: Back Pain Onset Date: 01/21/22 PT Insurance Information: [facility] Total # of Visits Approved: 12 Per [...] for 15 minutes before limited by pain Search Engine Marketing Manager Goals Time Frame for Search Engine Marketing Manager Goals : 12 Search Engine Marketing Manager Goal 1: Decrease pain low back 2/10 at worst x3 days Search Engine Marketing Manager Goal 2: Improved functional mobility with Oswestry score <10/45 Post Treatment Pain: 2/10 Time In: 11:00 Time Out : 11:45 Timed Code Treatment Minutes: 45 Minutes Total Treatment Time: 45 Minutes Dayanna Springer PT Date: 03/03/2022 documented in this encounterINOVA [facility]PITAL[facility] [employer] Work Phone: [phone]) 702-175709-27-2022 History of Present illness Narrative* Dayanna Springer, PT - 02/24/2022 3:30 PM EDT Images from the original note were not included. [facility] Out[facility] Physical Therapy Evaluation Date: 02/24/2022 Patient: Sarah Harris : 1975 Referring Provider (secondary): Dr. Hart Diagnosis: Back pain Treatment Diagnosis: Back Pain Onset Date: 01/21/22 PT Insurance Information: BS Total # of Visits Approved: 12 Per Physician Order Total # of Visits to Date: 1 Subjective Additional Pertinent Hx: Patient has had chronic low back pain for aat least 10 years. Back pain been worsening over past year. Pain radiates down R leg to ffot; occassionally pain in left leg. Applying for disability. 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 Pain 4-9/10 in low back [...] Medium Complexity Education: On POC and HEP [employer] [facility] Access Code [id number] Goals Short Term Goals Time Frame for Short term goals: 8 Short term goal 1: Patient to be independent with HEP Short term goal 2: Patient to demonstrate understanding for improved posture following back education Short term goal 3: Patient to be able to stand or walk for 15 minutes before limited by pain Chcf Goals Time Frame for terminal operations supervisor goals : 12 terminal operations supervisor goal 1: Decrease pain low back 2/10 at worst x3 days terminal operations supervisor goal 2: Improved functional mobility with Oswestry score <10/45 Patient's Goal: Be able to walk dog and complete activities without pain interfering Timed Code Treatment Minutes: 15 Minutes Total Treatment Time: 45 Time In: 15:38 Time Out: 16:23 Dayanna Springer, PT Date: 02/24/2022 documented in this [facility]NOR[facility] [employer] Phone: [phone]) [phone] Hospital Discharge instructions* Discharge Instructions* Adrien Somers MD - 12/20/2021 12:49 PM EDT Begin taking your first dose of prednisone at home tomorrow. In place of Benadryl, use the Atarax as prescribed. Use caution as this may cause drowsiness. Do not drive or perform other dangerous activity while taking this medication. Additionally, you may use nzcv-kwx-ksimjko calamine or Caladryl for extra symptom relief. Return to the ED for worsening rash, development of fever, pain or other concerns. * Attachments The following attachments cannot be sent through Care Everywhere. * Allergic Reaction (Comoran) * Rash (Comoran) documented in this encounterNOR[facility] [employer] Phone: [phone]) 763-371307-13-2022 Hospital Discharge instructions* Instructions* Mira Mcwilliams RN [...] In the meantime, you may take an uiwu-ogx-uqfyyib analgesic (Tylenol, Anacin, etc.) and use a heating pad applied to the lower abdomen. Please call the office as soon as possible for a post-operative visit in two weeks. If you experience any unusual amount of bleeding or side effects that you cannot readily explain, please do not hesitate to call the office. documented in this encounterBON ABRA[facility]ROW[facility] CAMPUSShopf[facility] Work Phone: [phone]) 435-127607-13-2022 History of Present illness Narrative* Mira Mcwilliams [...] responsible adult. Yes documented in this encounterB[facility] [employer] Phone: [phone]) [phone] History of Present illness Narrative* Danial Iyer RN - 12/04/2021 10:00 AM EDT Anesthesia, COLETTE Gómez notified of patient's BMI, as well as [...] reviewed with the patient as well as [facility] skin prep instructions. Verbalizes understanding. * Danial Iyer RN - 12/04/2021 10:00 AM EDT [facility] Preadmission Testing Name: Sarah Harris : [...] Pre-AdmissionTesting Checklist History and Physical Collected?: No ( to bring on DOS) Communication Needs: None Pre-existing DNR Comfort Care/DNR Arrest/DNI Order: No Patient instructed on the pre-operative, intra-operative, and post-operative process? Yes Medication instructions reviewed with patient? Yes Pre operative instruction sheet reviewed and given to patient in PAT? Yes documented in this encounterBON [facility] [employer] Work Phone: 1([phone]) 173-326908-05-2021 NotePROCEDURE: XR ANKLE RT MIN 3 VIEWS [...] authenticated by: ANA ELIAS Date: 2021-01-02 16:24[id number] History of Present illness Narrative* Mariajose Mas [...] operate motor Vehicle. Yes documented in this encounterWooster Community HospitalON-S [employer] Phone: evaltrfrnk note* Diagnosis Iron deficiency anemia due to chronic blood loss Iron deficiency anemia secondary to blood loss (chronic) documented in this encounter [employer] Phone: evaluation note* Diagnosis Suspected COVID-19 virus infection documented in this encounter [employer] Phone: evalstiwhi note* Diagnosis Iron deficiency anemia due to chronic blood loss Iron deficiency anemia secondary to blood loss (chronic) Type 2 diabetes mellitus without complication, without long-term current use of insulin (HCC) documented in this encounter [employer] Phone: evalkxfkrg note* Diagnosis Adverse effect of drug, initial encounter- Primary documented in this encounter [employer] Phone: evaltuoneg note* Diagnosis Type 2 diabetes mellitus without complication, without long-term current use of insulin (HCC) Encounter for hepatitis C screening test for low risk patient Iron deficiency anemia due to chronic blood loss Iron deficiency anemia secondary to blood loss (chronic) documented in this encounter [employer] Phone: evalsczzpx note* Diagnosis Pre-op testing Preoperative examination, unspecified Dysmenorrhea documented in this encounter [employer] Phone: evalnmvsaw note* Diagnosis Dysmenorrhea documented in this encounter [employer] Phone: evalgickcl note* Diagnosis Rash- Primary Rash and other nonspecific skin eruption Allergic reaction, initial encounter documented in this encounter [employer] Phone: evalisjyft noteNo assessment information available [facility] Work Phone: Evaluation note* Diagnosis Chronic bilateral low back pain with bilateral sciatica documented in this encounter [employer] Phone: evaloiahtf note* Diagnosis Low back pain, unspecified back pain laterality, unspecified chronicity, unspecified whether sciatica present documented in this encounter [employer] Phone: [email or web address] note* Diagnosis Osteoarthritis of both sacroiliac joints- Primary Pain of both sacroiliac joints Disorders of sacrum Other spondylosis with radiculopathy, lumbar region Spinal stenosis, lumbar region with neurogenic claudication documented in this encounter [facility]* Diagnosis Left ovarian cyst Other and unspecified ovarian cyst documented in this encounter [employer] Phone: evalyiskmw note* Diagnosis Pre-op chest exam Pre-operative respiratory examination Post endometrial ablation syndrome Pelvic pain in female Unspecified symptom associated with female genital organs documented in this encounter [facility] [employer] Phone: evaluation note* Diagnosis Osteoarthritis of both sacroiliac joints- Primary Pain of both sacroiliac joints Disorders of sacrum documented in this encounter [facility] CenterEvaluwil[facility]* Diagnosis Osteoarthritis of both sacroiliac joints- Primary Pain of both sacroiliac joints Disorders of sacrum documented in this encounter [facility] CenterEval[facility]il[facility]* Diagnosis Pneumonia of both lower lobes due to infectious organism- Primary documented in this encounter [facility] Phone: evaluation note* Diagnosis Osteoarthritis of both sacroiliac joints- Primary Pain of both sacroiliac joints Disorders of sacrum Pain of left hip [facility]* Diagnosis Vertebrogenic low back pain [facility] this [facility]* Diagnosis Osteoarthritis of both sacroiliac joints- Primary Pain of both sacroiliac joints Disorders of sacrum documented [facility] this [facility]* Diagnosis Elective surgery- Primary Unspecified elective surgery for purposes other than remedying health states documented [facility] this [facility]* Diagnosis Sacroiliitis Sacroiliitis, not elsewhere classified documented [facility] this [facility]* Diagnosis Spinal stenosis of lumbar region with neurogenic claudication Spinal stenosis, lumbar region, with neurogenic claudication documented [facility] this [facility]* Diagnosis Osteoarthritis of both sacroiliac joints- Primary documented in this [facility]* Diagnosis Pain in right hip Pain in joint, pelvic region and thigh documented in this [facility]* Diagnosis Spinal stenosis, lumbar region with neurogenic claudication documented [facility] this [facility]* Diagnosis Tricompartment osteoarthritis of right knee- Primary documented in this encounter [facility]* Diagnosis Breast cancer screening by mammogram documented in this encounter [facility]iB[facility] CampusBow[facility] note* Diagnosis Rash and other nonspecific skin eruption- Primary documented in this encounter [facility]Kam[facility] note* Diagnosis Greater trochanteric bursitis of right hip- Primary Enthesopathy of hip region Accidental fall, initial encounter documented in this encounter [facility] note* Diagnosis Left knee pain, unspecified chronicity- Primary documented in this encounter [facility] note* Diagnosis Pain, joint, shoulder, right Pain in joint, shoulder region documented in this encounter [facility] note* Diagnosis Type 2 diabetes mellitus without complication, without long-term current use of insulin (HCC) documented in this encounter [facility] note* Diagnosis Chronic pain syndrome [facility] Discharge instructions* Attachments The following attachments cannot be sent through Care Everywhere. * Medication Side Effects (Comoran) documented in this encounterW[facility] Inns Phone: spital Discharge instructions* Instructions* Dena Rich RN - [...] the day after the test, use an kieg-qrd-oerijyb spray to numb your throat. Follow-up care [...] Where can you learn more? Go to [email or web address] and sign in to your [employer] account. Enter J454 in the Search Health Information box to learn more about Upper GI Endoscopy: What to Expect at Home. If you do not have an account, please click on the Sign Up Now link. Current as of: April 06, 2018 Content Version: [id number] Instant [employer]. Care instructions adapted under license by [employer]. If youhave questions about a medical condition or this instruction, always ask your healthcare professional. [employer] disclaims any warranty or liability for your use of this information. documented in this [facility] [employer] Phone: [facility] Discharge instructions* Attachments The following attachments cannot be sent through Care Everywhere. * Laparoscopic Hysterectomy: Post-op (Comoran) * Surgical Drain Care (Comoran) * Surgical Site Infections: Prevention: General Info (Comoran) documented in this [facility] [employer] Phone: spital Discharge instructions* Attachments The following attachments cannot be sent through Care Everywhere. * Knee Arthritis (Comoran) documented in this [facility] Discharge instructions* Attachments The following attachments cannot be sent through Care Everywhere. * Rash (Comoran) * Pham (Comoran) documented in this [facility] Discharge instructions* Attachments The following attachments cannot be sent through Care Everywhere. * Trochanteric Bursitis: Exercises (Comoran) documented in this [facility] Discharge instructions* Attachments The following attachments cannot be sent through Care Everywhere. * Knee Pain or Injury ([place]an) documented in this [facility] (narrative)* Consultation (Routine) - Closed Specialty Diagnoses / Procedures Referred By Valeriy del real Referred To Contact Neurologic Surgery Diagnoses Osteoarthritis of both sacroiliac joints Pain of both sacroiliac joints Keila Hemphill MD [address] [place] [id number] Referral ID Status Reason Start Date Expiration Date Visits Re quested Visits Authorized [id number] Closed 12/15/2022 01/09/2024 1 1 * Radiology (Routine) - New Request Specialty Diagnoses / Procedures Referred By Valeriy del real Referred To Contact Diagnoses Osteoarthritis of both sacroiliac joints Pain of both sacroiliac joints Procedures US IMAGING FOR ORTHO Keila Hemphill MD [address] [place] [id number] Referral ID Status Reason Start Date Expiration Date V isits Requested Visits Authorized [id number] New Request 12/15/2022 01/09/2024 1 1 [facility] for visit Narrative* Auth/Cert Specialty Diagnoses / Procedures Referred By Valeriy del real Referred To Contact Diagnoses Dysmenorrhea SECONDARY DYSMENORRHEA Procedures HI HYSTEROSCOPY,W/ENDOMETRIAL ABLATION DILATATION AND CURETTAGE HYSTEROSCOPY CAUTERY ABLATION-Frank Licona MD [address] [place] [phone] [facility]ITAL[facility] [address] [place] [address] Referral ID Status Reason Start Date Expiration Date Visits Re quested Visits Authorized [id number] 1 1 [employer] [facility] Phone: reason for visit Narrative* Imaging (Routine) - Pending Review Specialty Diagnoses / Procedures Referred By Valeriy del real Referred To Contact Radiology Diagnoses Chronic pain syndrome Procedures MRI THORACIC SPINE WO CONTRAST Hunter Sánchez MD [address] [place] [phone] Phone: tel: fax: Referral ID Status Reason Start Date Expiration Date V isits Requested Visits Authorized [id number] Pending Review 12/11/2024 12/04/2025 1 1 Richelle Reed [facility] Assessments Diagnosis Acute bronchitis, unspecified organism Diagnosis [...] FoundDocuments on File Type Date Recorded Patient Counseling Services Manager Expl anation Advance Directives and Living Will Power of Plastic Injection Mold Maker Latest Code Status on File Code Status Date Activated Date Inactivated Comments Full Code 07/20/2014 9:50 AM 07/20/2014 4:38 PM Full Code 04/10/2013 8:41 AM 04/10/2013 4:13 PM Full Code 01/16/2013 7:33 AM 01/16/2013 4:58 PM Documents on File Type Date Recorded Patient Counseling Services Manager Expl anation Advance Directives and Living Will Power of Plastic Injection Mold Maker Latest Code Status on File Code Status [...] Documents on File Type Date Recorded Patient Counseling Services Manager Expl anation ACP-Advance Directive ACP-Power of Plastic Injection Mold Maker Documents on File Type Date Recorded Patient Counseling Services Manager Expl anation ACP-Advance Directive ACP-Power of Plastic Injection Mold Maker Latest Code Status on File Code Status [...] Osmani Young Spouse Primary Decision Maker 419-2 221 (Home) Healthcare Agents on File Name Relationship [...] Spouse Primary Decision Maker 419-2 -2215 (Home) Healthcare Agents on File Name Relationship [...] Osmani Young Spouse Primary Decision Maker 419-2 2 (Home) Latest Code Status on File Code [...] Osmani Young Spouse Primary Decision Maker 419-2 (Home)[phone] (Ord) Date Activated Date Inactivated Comments 10/19/2023 8:54 [...] Spouse Primary Decision Maker 419-2 (Home) (Mobile) Healthcare Agents on File Name Relationship Healthcare Agent Relationshi p Communication Osmani Young Spouse Primary Decision Maker 419-2 (Home) Healthcare Agents on File Name Relationship Healthcare Agent Relationshi p Communication Osmani Young Spouse Primary Decision Maker 419-2 (Home) Healthcare Agents on File Name Relationship Healthcare Agent Relationshi p Communication Osmani Young Spouse Primary Decision Maker 419-2 (Home) (Mobile) Healthcare Agents on File Name Relationship Healthcare Agent Relationshi p Communication Osmani Young Spouse Primary Decision Maker 419-2 (Home) (Mobile) Healthcare Agents on File Name Relationship Healthcare Agent Relationshi p Communication Osmani Young Spouse Primary Decision Maker 419-2 (Home) Healthcare Agents on File Name Relationship Healthcare Agent Relationshi p Communication Osmani Young Spouse Primary Decision Maker 419-2 (Home) (Mobile) Healthcare Agents on File Name Relationship Healthcare Agent Relationshi p Communication Osmani Young Spouse Primary Decision Maker 419-2 (Home) Healthcare Agents on File Name Relationship Healthcare Agent Relationshi p Communication Osmani Young Spouse Primary Decision Maker 419-2 (Home) (Mobile) Healthcare Agents on File Name Relationship Healthcare [...] SCREEN W OR WO CAD BILATERAL Zayra Hart, DO [address] [place] [address] Specialty Diagnoses / Procedures Referred By Contac t Referred To Contact Cardiology Diagnoses Pre-op testing Procedures EKG 12 Lead Frank Pickering MD 27 [facility] [address] [place] [address] Referral ID Status Reason Start Date Expiration Date V isits Requested Visits Authorized [id number] Pending Review 12/03/2021 12/03/2022 1 1 Specialty Diagnoses / Procedures Referred By Contac t Referred To Contact Radiology Diagnoses Chronic bilateral low back pain with bilateral sciatica M54.42, M54.41, G89.29 (ICD-10-CM) - Chronic bilateral low back pain with bilateral sciatica Procedures MRI LUMBAR SPINE WO CONTRAST HI MRI, LUMBAR SPINE 00444 - HI MRI, LUMBAR SPINE MickyMilo mcdonaldZayra L, DO [address] [place] [address] Referral ID Status Reason Start Date Expiration Date Visits Re quested Visits Authorized [id number] Closed 05/15/2022 07/13/2022 1 1 Specialty Diagnoses / Procedures Referred By Contac t Referred To Contact Cardiology Diagnoses Pre-op chest exam Procedures EKG 12 lead Tino Sánchez PA-C [address] [facility] [address] [place] [address] Referral ID Status Reason Start Date Expiration Date Visits Re quested Visits Authorized [id number] Open 09/05/2022 09/05/2023 1 1 Specialty Diagnoses / Procedures Referred By Contac t Referred To Contact Diagnoses Osteoarthritis of both sacroiliac joints Pain of both sacroiliac joints Procedures US IMAGING FOR ORTHO Keila Hemphill MD [address] [place] [address] [place] [address] Referral ID Status Reason Start Date Expiration Date V isits Requested Visits Authorized [id number] New Request 08/14/2022 09/08/2023 1 1 Specialty Diagnoses / Procedures Referred By Contac t Referred To Contact Diagnoses Osteoarthritis of both sacroiliac joints Procedures US IMAGING FOR ORTHO Keila Hemphill MD [address] [facility] [place] [address] [place] [address] Referral ID Status Reason Start Date Expiration Date V isits Requested Visits Authorized [id number] New Request 08/02/2023 08/26/2024 1 1 Specialty Diagnoses / Procedures Referred By Contac t Referred To Contact Diagnoses Pain in right hip Procedures MRI PELVIS WITHOUT CONTRAST HI MRI, PELVIS, W/O CONTRAST Elliot Zheng MD [facility] [address] [place] [address] [facility] Referral ID Status Reason Start Date Expiration Date Visits Re quested Visits Authorized [id number] Closed 07/27/2023 08/20/2024 1 1 Specialty Diagnoses / Procedures Referred By Contac t Referred To Contact Diagnoses Spinal stenosis, lumbar region with neurogenic claudication Procedures MRI SPINE LUMBAR WITHOUT CONTRAST HI MRI, LUMBAR SPINE Elliot Zheng MD [address] [place] [address] [facility] Referral ID Status Reason Start Date Expiration Date Visits Re quested Visits Authorized [id number] Closed 07/27/2023 08/20/2024 1 1 Specialty Diagnoses / Procedures Referred By Contac t Referred To Contact Radiology Diagnoses Breast cancer screening by mammogram Procedures DANIELLE NANO DIGITAL SCREEN BILATERAL Gonzalo, Tino, DEVAN [address] [facility] [address] [place] [address] Referral ID Status Reason Start Date Expiration Date Visits Re quested Visits Authorized [id number] Closed 01/05/2024 01/04/2025 1 1 Discharge Instructions * Attachments The following attachments cannot be sent through Care Everywhere. * Sciatica (Comoran) * Sciatica: Exercises ([place]oran) documented in this encounter* Instructions* Malissa Batista, [...] PAIN IS SEVERE POST INJECTION- PLEASE CALL [phone] ; CALL 911 FOR EMERGENCY documented in [...] PAIN IS SEVERE POST INJECTION- PLEASE CALL [phone] ; CALL 911 FOR EMERGENCY documented in [...] PAIN IS SEVERE POST INJECTION- PLEASE CALL [phone] ; CALL [phone] FOR EMERGENCY documented in this encounter* Instructions* [...] PAIN IS SEVERE POST INJECTION- PLEASE CALL [phone] ; CALL 911 FOR EMERGENCY documented in this encounter History of Present Illness * Malissa Batista RN - 03/07/2020 3:17 PM EDT Discharge Criteria [...] Rich RN - 05/23/2020 7:02 AM EST VODG=100. documented in this encounter* Peri Stafford RN - 04/11/2020 3:48 PM EST Pt has remained alert and oriented, tolerated fluids and food, VS WNL, pt's gait is steady as well; * Peri Stafford RN - 04/11/2020 3:17 PM EST Pt requesting jello and crackers after tolerating water, pt presently consuming the above at this time; IFER * Peri Stafford RN - 04/11/2020 3:17 [...] MAMMO SCREENING INCL CAD IF PERF Zayra Hart, DO [address] [place] [address] [facility] [address] [place] [address] Reason Comments Back Pain patient states that [...] BLOCK BILATERAL Sukhdev Galeano MD [address] [facility] [address] [place] [address] [facility] Status Reason Specialty Diagnoses / Procedures Re ferred By Contact Referred To Contact Diagnoses Bilateral primary osteoarthritis of knee arthritis of the left knee Procedures HI INJECTION AA&/STRD OTHER PERIPHERAL NERVE/BRANCH LEFT KNEE RFA Sukhdev Galeano MD [address] [facility] [address] [place] [address] [facility] Status Reason Specialty Diagnoses / Procedures Re ferred By Contact Referred To Contact Diagnoses Bilateral primary osteoarthritis of knee ARTHRITIS OF KNEE Procedures HI INJECTION AA&/STRD OTHER PERIPHERAL NERVE/BRANCH COOL RFA- RIGHT KNEE Sukhdev Galeano MD [address] [facility] [address] [place] [address] [employer] Status Reason Specialty Diagnoses / Procedures Re ferred By Contact Referred To Contact Diagnoses Bilateral primary osteoarthritis of knee ARTHRITIC BILATERAL KNEES Procedures HI OFFICE/OUTPT VISIT,PROCEDURE ONLY HI INJECTION AA&/STRD OTHER PERIPHERAL NERVE/BRANCH GENICULAR NERVE BLOCK BILATERAL KNEES Sukhdev Galeano MD [address] [facility] [address] [place] [address] [facility] Reason Comments Allergic Reaction pt reports starting [...] DIAGNOSTIC EGD ESOPHAGOGASTRODUODENOSCOPY Darien Waters MD [address] [address] [facility] Reason Comments Rash Complains of itching rash on inner thighs Specialty Diagnoses / Procedures Referred By Contac t Referred To Contact Radiology Diagnoses Chronic bilateral low back pain with bilateral sciatica M54.42, M54.41, G89.29 (ICD-10-CM) - Chronic bilateral low back pain with bilateral sciatica Procedures MRI LUMBAR SPINE WO CONTRAST HI MRI, LUMBAR SPINE 10753 - HI MRI, LUMBAR SPINE Zayra Hart, DO [address] [place] [address] Referral ID Status Reason Start Date Expiration Date Visits Re quested Visits Authorized [id number] Closed 05/15/2022 07/13/2022 1 1 Reason Comments Pain Specialty Diagnoses / Procedures Referred By Contac t Referred To Contact Orthopaedics Diagnoses Spinal stenosis, lumbar region with neurogenic claudication Other spondylosis with radiculopathy, lumbar region Sacroiliitis Pain in hip Elliot Zheng MD [address] [address] Keila Hemphill MD [address] [place] [address] Referral ID Status Reason Start Date Expiration Date V isits Requested Visits Authorized [id number] Pending Review 2022 07/11/2023 1 1 Specialty Diagnoses / Procedures Referred By Contac t Referred To Contact Neurosurgery Diagnoses Spinal stenosis of lumbar region with neurogenic claudication Zayra Hart, DO [address] [place] [address] Elliot Zheng MD [address] [place] [address] Referral ID Status Reason Start Date Expiration Date V isits Requested Visits Authorized [id number] Open Specialty Services Required 05/20/2022 11/16/2022 1 2 Specialty Diagnoses / Procedures Referred By Contac t Referred To Contact Diagnoses Osteoarthritis of both sacroiliac joints Pain of both sacroiliac joints Procedures US IMAGING FOR ORTHO Keila Hemphill MD [address] [facility] [place] [address] [place] [address] Referral ID Status Reason Start Date Expiration Date V isits Requested Visits Authorized [id number] New Request 08/14/2022 09/08/2023 1 1 Specialty Diagnoses / Procedures Referred By Conttori t Referred To Contact Diagnoses Post endometrial ablation syndrome Pelvic pain in female POST ABLATION SYNDROME, SEVERE PELVIC PAIN Procedures HI LAPS TOTAL HYSTERECT 250 GM/< W/RMVL TUBE/OVARY XI ROBOTIC LAPAROSCOPIC TOTAL HYSTERECTOMY, BSO, POSSIBLE EXPLORATORY LAPAROTOMY, OTHER NECESSARY PROCEDURES Clemencia Campos MD [address] [facility] [address] [place] [address] [facility] [address] [place] [address] Referral ID Status Reason Start Date Expiration Date Visits Re quested Visits Authorized [id number] 1 1 Reason Comments Pain Follow-up Reason Comments Pain Follow-up Joint Injection Reason Comments Abdominal Pain Patient recently had a hysterectomy 2 weeks ago on the in [place]. Patient had drain removed on Wednesday, patient now has lower abdominal pain since drain removed. Patient had taken tylenol this AM. Reason Comments Follow-up Left Sacroiliac Join t Reason Comments Pain Follow-up Joint Injection Specialty Diagnoses / Procedures Referred By Valeriy t Referred To Contact Diagnoses Sacroiliitis Sacroiliitis [M46.1] Procedures HI ARTHRODESIS SACROILIAC JOINT PERCUTANEOUS CHG FLUOROSCOPY UP TO 1 HOUR PHYSICIAN/QHP TIME HI IMPLANT/INSERT DEVICE, NOC PROSTHETIC IMPLANT NOS ARTHRODESIS SACROILIAC JOINT MINIMALLY INVASIVE W/ TRANSFIXING DEVICE FLUOROSCOPY IN OR Elliot Zheng MD [address] [facility] [address] [place] [address] Referral ID Status Reason Start Date Expiration Date Visits Re quested Visits Authorized [id number] 02/05/2023 1 1 Specialty Diagnoses / Procedures Referred By Valeriy t Referred To Contact Diagnoses Spinal stenosis of lumbar region with neurogenic claudication Spinal stenosis of lumbar region with neurogenic claudication [M48.062] Procedures HI INJECTION AA&/STRD OTHER PERIPHERAL NERVE/BRANCH HI INJECT TRIGGER POINT,SI/MULT, 1-2 MUSC INJECTION MUSCLE TRIGGER POINT 1 OR 2 MUSCLES Elliot Zheng MD [facility] [place] [address] Referral ID Status Reason Start Date Expiration Date Visits Re quested Visits Authorized [id number] 06/11/2023 1 1 Specialty Diagnoses / Procedures Referred By Contac t Referred To Contact Orthopaedics Diagnoses Sacroiliitis, not elsewhere classified Elliot Zheng MD [address] [place] [address] Keila Hemphill MD [address] [place] [address] Referral ID Status Reason Start Date Expiration Date V isits Requested Visits Authorized [id number] New Request 07/28/2023 08/21/2024 1 1 Specialty Diagnoses / Procedures Referred By Contac t Referred To Contact Diagnoses Pain in right hip Procedures MRI PELVIS WITHOUT CONTRAST HI MRI, PELVIS, W/O CONTRAST Elliot Zheng MD [address] [place], [place] [address] [facility] Referral ID Status Reason Start Date Expiration Date Visits Re quested Visits Authorized [id number] Closed 07/27/2023 08/20/2024 1 1 Specialty Diagnoses / Procedures Referred By Contac t Referred To Contact Diagnoses Spinal stenosis, lumbar region with neurogenic claudication Procedures MRI SPINE LUMBAR WITHOUT CONTRAST HI MRI, LUMBAR SPINE Elliot Zheng MD [address] [place], [place] [address] [facility] Referral ID Status Reason Start Date Expiration Date Visits Re quested Visits Authorized [id number] Closed 07/27/2023 08/20/2024 1 1 Reason Comments Knee Pain Patient complains of right knee pain that has been ongoing for the past few months. States Wednesday dog jumped on patient and aggravated the knee. Specialty Diagnoses / Procedures Referred By Valeriy t Referred To Contact Radiology Diagnoses Breast cancer screening by mammogram Procedures DANIELLE NANO DIGITAL SCREEN BILATERAL Tino Sánchez PA-C [address] [facility] [address] [place] [address] Referral ID Status Reason Start Date Expiration Date Visits Re quested Visits Authorized [id number] Closed 01/05/2024 01/04/2025 1 1 Reason Comments Rash Rash on chest for fe w days, has tried OTC allergy meds with no relief. Reason Comments Hip Pain Pt reports chronic r ight knee pain. She states she fell on morning landing on her right hip. Reason Comments Knee Pain Left knee pain, sudd en onset this am. Nothing seems to make it better or worse. Denies trauma or history of same. Tried some icy hot without relief. Ambulatory. INFORMATION SOURCE (unrecogn ized section and content) DATE CREATED AUTHOR 04/11/2021 [facility] DATE CREATED AUTHOR AUTHOR'S ORGANIZ ATION 05/21/2021 [facility] DATE CREATED AUTHOR AUTHOR'S ORGANIZ ATION 02/06/2022 [facility] DATE CREATED AUTHOR AUTHOR'S ORGANIZ ATION 06/24/2022 [facility] DATE CREATED AUTHOR AUTHOR'S ORGANIZ ATION 2023 [facility] DATE CREATED AUTHOR AUTHOR'S ORGANIZ ATION 08/02/2023 [facility] DATE CREATED AUTHOR AUTHOR'S ORGANIZ ATION 11/03/2023 [facility] DATE CREATED AUTHOR AUTHOR'S ORGANIZ ATION 06/22/2024 [facility] DATE CREATED AUTHOR AUTHOR'S ORGANIZ ATION 10/04/2024 [facility] DATE CREATED AUTHOR AUTHOR'S ORGANIZ ATION 11/20/2024 [facility] DATE CREATED AUTHOR AUTHOR'S ORGANIZ ATION 12/19/2024 [facility] DATE CREATED AUTHOR AUTHOR'S ORGANIZ ATION 01/12/2025 [facility] Ordered Prescriptions (unrec ognized section and content) [...] 6 tablets 18 tablet 0 12/24/2023 12/24/2023 Prescription Sig Dispensed Refills Start Date End Da te fluconazole (DIFLUCAN) 100 MG tablet Take 1 tablet by mouth daily for 7 days 7 tablet 05/12/2024 05/19/2024 loratadine (CLARITIN) 10 MG tablet Take 1 tablet by mouth daily 30 tablet 05/12/2024 06/11/2024 Prescription Sig Dispensed Refills Start Date End Da te oxyCODONE-acetaminophen (PERCOCET) 5-325 MG per tabletIndications:Left knee pain, unspecified chronicity Take 1 tablet by mouth every 6 hours as needed for Pain for up to 3 days. Intended supply: 3 days. Take lowest dose possible to manage pain Max Daily Amount: 4 tablets 12 tablet 06/18/2024 06/21/2024 Scheduled Active and Recently Administ ered Medications [...] 1152 (Given - Provid er: Brittany Lucas, FIBER MACHINE TENDER - IT TECHNICIAN) dimenhyDRINATE (DRAMAMINE) tablet 50 mg (COMPLETED) 50 [...] on Wed12/10/21 at 1245, Last dose on Wed12/11/21 at 0645, Discontinue when able to take [...] Provider: VIRGINIE Sloan CRNA)1216 (Stopped - Provider: VIRGINIE Sloan CRNA) lactated ringers infusion IntraVENous, at [...] only 1237 (Given - Provid er: Candi Jones, HEAVENLY)1243 (Given - Provider: Candi Jones RN) hydrALAZINE [...] Margarita Yeh RN)0624 (Given - Provider: Margarita Yeh, HEAVENLY)1218 (Not Given - Provider: Sanna Stoner RN - Reason: Patient/family refused - Comment: discharged)191 (Due) ceFAZolin (ANCEF) 3000 mg in sterile water 30 mL IV syringe (COMPLETED) 3,000 mg, IntraVENous, POLICE INSPECTOR TO O.R., 1 dose, On Wed09/08/22 at 0645, Antimicrobial Indications: Surgical Prophylaxis, Administer within 1 hour prior to incision. Administer over 5 mins., Pre-op (day of surgery) 0816 (Given - Provider: Melissa Marcelino APRN - IT TECHNICIAN) celecoxib (CELEBREX) capsule 200 mg 200 mg, Oral, 2 TIMES DAILY, First dose on Wed09/09/22 at 0900, Until Discontinued, Post-op 08 (Given - Provid er: Sanna Stoner RN)2099 (Due) enoxaparin (LOVENOX) injection 40 mg 40 mg, SubCUTAneous, 2 times daily, First dose on Wed09/09/22 at 0900, Until Discontinued, Indication of Use: Prophylaxis-DVT/PE, Pharmacy to dose if renal insufficiency present., Post-op 803 (Not Given - Provider: Sanna Stoner RN - Reason: Patient/family refused)2099 (Due) gabapentin (NEURONTIN) capsule 300 mg 300 mg, Oral, NIGHTLY, First dose on Wed09/08/22 at 2100, Until Discontinued, Post-op 2207 (Given - Provider: Margarita Yeh RN) 2099 [...] RN - Reason: Order parameters not met) 2099 (Due) insulin lispro (HUMALOG) injection vial 0-8 [...] on Wed09/09/22 at 0900, Until Discontinued, Post-op 814 (Not Given - Provider: Sanna Stoner RN - Reason: Other - Comment: pt passing gas) montelukast (SINGULAIR) tablet 10 mg 10 mg, Oral, NIGHTLY, First dose on Wed09/08/22 at 2100, Until Discontinued, Post-op 2038 (Given - Provider: Margariat Yeh RN) 2099 (Due) pantoprazole (PROTONIX) tablet 40 mg 40 mg, Oral, 2 TIMES DAILY, First dose on Wed09/08/22 at 2100, Until Discontinued, Do not crush or break., Post-op 2037 (Given - Provider: Margarita Yeh RN) 08 (Given - Provider: Sanna Stoner RN)2099 (Due) PARoxetine (PAXIL) tablet 30 mg 30 mg, Oral, EVERY MORNING, First dose on Wed09/09/22 at 0900, Until Discontinued, Post-op 08 (Given - Provid er: Sanna Stoner RN) sennosides-docusate sodium (SENOKOT-S) 8.6-50 MG tablet 2 tablet 2 tablet, Oral, 2 times daily, First dose on Wed09/08/22 at 2100, Until Discontinued, Post-op 2037 (Given - Provider: Margarita Yeh RN) 0839 (Given - Provider: Sanna Stoner RN)2100 (Due) sodium chloride flush 0.9 % injection [...] Sanna Stoner RN - Reason: IV Fluid Infusing)2099 (Due) verapamil (CALAN SR) extended release tablet [...] Cooney RN)1823 (New Bag - Provider: Brittany Cooney RN)1823 (Rate/Dose Verify - Provider: Brittany Cooney [...] 1254, Until Discontinued, Pain Severe (7-10), Post-op 1611 (See Alternative - Provider: Brittany Cooney RN)2033 (See Alternative - Provider: Margarita Yeh RN) 0943 (See Alternative - Provider: Sanna Stoner RN) oxyCODONE (ROXICODONE) immediate release tablet 5 mg(Linked Group 3) 5 mg, Oral, EVERY 4 HOURS PRN, Starting on Wed09/08/22 at 1254, Until Discontinued, Pain Moderate (4-6), Post-op 1611 (Given - Provider: Brittany Cooney, RN)2034 (Given - Provider: Margarita Yeh RN) 0943 [...] over 15 Minutes, ONCE, 1 dose, On Wed02/11/23 at 1530 1457 ($$New Bag$$ - Provider: Margaret Ortiz RN)1539 (Stopped - Provider: Margaret Ortiz RN) Ondansetron 4mg/2ml (ZOFRAN) injection 4 mg (COMPLETED) 4 mg, Intravenous, ONCE, 1 dose, On Wed02/11/23 at 1100, Pre-op/Pre-Proc 1030 (Given - Provid er: Liss Iyer RN) Sodium chloride 0.9% IV solution 1,000 mL (COMPLETED) 1,000 mL, Intravenous, ONCE, 1 dose, On Wed02/11/23 at 0845 0842 ($$New Bag$$ - Provider: Nellie Mosqueda LPN)1555 (Stopped - Provider: Margaret Ortiz RN) PRN Medication Order 02/09/2023 02/10/2023 02/11/2023 Bupivacaine-Epinephrine (MARCAINE;SENSORCAINE-MPF) 0.5% -[id number] injection (CANCELED) NEEDED, Starting on Wed02/11/23 at 1332, Until Wed02/11/23 at 1401, Intra-op/Intra-Proc 1332 (Given - Provid er: Elliot Zheng MD) ceFAZolin (ANCEF) 2 g in dextrose 100 mL premix IVPB (COMPLETED) 2 g, Intravenous, Administer over 30 Minutes, POLICE INSPECTOR TO PROCEDURE, 1 dose, Starting on Mirian 02/11/23 at 0801, Until Discontinued, Other, Pre-operative antibiotic, Pre-op/Pre-Proc 1227 (Given - Provid er: Omero Carpenter APRN-COLETTE - Comment: PSR) hydroCODone-acetaminophen (NORCO) 5-325 MG [...] (SURGICEL) topical pad (CANCELED) NEEDED, Starting on Mirian 02/11/23 at 1332, Until Mirian 02/11/23 at 1401, Intra-op/Intra-Proc 1332 (Given - Provid er: Elliot Zheng MD - Comment: placed on sterile field for use during the case) Vancomycin (VANCOCIN) injection (CANCELED) NEEDED, Starting on Mirian 02/11/23 at 1333, Until Mirian 02/11/23 at 1401, Intra-op/Intra-Proc 1333 (Given - Provid er: Elliot Zheng MD) No Frequency Medication Order 02/09/2023 02/10/2023 02/11/2023 diphenhydrAMINE (BENADRYL) injection 1 dose, Starting on Mirian 02/11/23 at 1412, Until Wed02/12/23 at 1415, Omero [...] 1015 1012 (Given - Provid er: Liss Iyer, HEAVENLY) Continuous Medication Order 06/30/2023 07/01/2023 07/02/2023 Sodium chloride 0.9% IV solution Intravenous, at 125 mL/hr, CONTINUOUS, Starting on Wed07/02/23 at 0845, Until Wed07/02/23 at 1215 0914 ($$New Bag$$ - Provider: Terry Vicente APRN-IT TECHNICIAN)1001 (Stopped - Provider: Liss Iyer, HEAVENLY) PRN Medication Order 06/30/2023 07/01/2023 07/02/2023 BUPivacaine (PF) (MARCAINE) 0.5 % injection (CANCELED) NEEDED, Starting on Wed07/02/23 at 0923, Until Wed07/02/23 at 0938, Intra-op/Intra-Proc 0923 (Given - Provid er: Elliot Zheng MD - Comment: placed on sterile field for use during the case) methylPREDNISolone acetate (DEPO-MEDROL) injection (CANCELED) NEEDED, Starting on Wed07/02/23 at 0924, Until Wed07/02/23 at 0938, Intra-op/Intra-Proc 0924 (Given - Provid er: Elliot Zheng MD [...] (Given - Provid er: Abdias Nascimento RN) Scheduled Medication Order 05/10/2024 05/11/2024 05/12/2024 triamcinolone acetonide (KENALOG-40) injection 80 mg (COMPLETED) 80 mg, IntraMUSCular, ONCE, 1 dose, On Wed05/12/24 at 1530 1525 (Given - Provid er: Shakira Castaneda RN) Care Teams (unrecognized sec tion and content) Real Estate Inspector Relationship Specialty Start Date End Date Zayra Hart, DO [address] [place] [address] PCP - General Family Medicine 03/31/19 Real Estate Inspector Relationship Specialty Start Date End Date Zayra Hart, DO [address] [place] [address] PCP - General Family Medicine 03/31/19 Real Estate Inspector Relationship Specialty Start Date End Date Zayra Hart, DO [address] [place] [address] PCP - General Family Medicine 03/31/19 Real Estate Inspector Relationship Specialty Start Date End Date Zayra Hart, DO [address] [place] [address] PCP - General Family Medicine 03/31/19 Real Estate Inspector Relationship Specialty Start Date End Date Zayra Hart, DO [address] [place] [address] PCP - General Family Medicine 03/31/19 Real Estate Inspector Relationship Specialty Start Date End Date Zayra Hart, DO [address] [place] [address] PCP - General Family Medicine 03/31/19 Team Status: Inactive Member Role Status Dates NON STAFF Primary Care Provider Active Ministerio Martínez MD Attending Provider Active Team Status: Active Member Role Status Dates NON STAFF Primary Care Provider Active Real Estate Inspector Relationship Specialty Start Date End Date Zayra Hart DO [address] [place] [address] PCP - General Family Medicine 03/31/19 Real Estate Inspector Relationship Specialty Start Date End Date Zayra Hart DO [address] [address] PCP - General Family Medicine 03/31/19 Real Estate Inspector Relationship Specialty Start Date End Date Zayra Hart DO [address] [place] [phone] PCP - General Family Medicine 03/31/19 Real Estate Inspector Relationship Specialty Start Date End Date Zayra Hart DO [address] [place] [address] PCP - General Family Medicine 03/31/19 Real Estate Inspector Relationship Specialty Start Date End Date Zayra Hart DO [address] [place] [address] PCP - General Family Medicine 03/31/19 Real Estate Inspector Relationship Specialty Start Date End Date Zayra Hart DO [address] [place] [address] PCP - General Family Medicine 03/31/19 Real Estate Inspector Relationship Specialty Start Date End Date [facility]. Other [address] [place] [address] PCP - General Other 06/16/22 Real Estate Inspector Relationship Specialty Start Date End Date Zayra Hart, DO [address] [place] [place] [address] PCP - General Family Medicine 03/31/19 Real Estate Inspector Relationship Specialty Start Date End Date [facility]. Other [address] [place] [address] PCP - General Other 06/16/22 Real Estate Inspector Relationship Specialty Start Date End Date Zayra Hart DO [address] [place] [address] [phone] PCP - General Family Medicine 03/31/19 Real Estate Inspector Relationship Specialty Start Date End Date Zayra Hart, DO [address] [place] [phone] PCP - General Family Medicine 03/31/19 Real Estate Inspector Relationship Specialty Start Date End Date [facility]. Other [address] [place] [address] PCP - General Other 06/16/22 Real Estate Inspector Relationship Specialty Start Date End Date [facility]. Other [address] [place] [address] PCP - General Other 06/16/22 Real Estate Inspector Relationship Specialty Start Date End Date Zayra Hart, DO [address] [place] [place] [address] PCP - General Family Medicine 03/31/19 Real Estate Inspector Relationship Specialty Start Date End Date [facility]. Other [address] [place] [address] PCP - General Other 06/16/22 Real Estate Inspector Relationship Specialty Start Date End Date [facility]. Other [address] [place], [place] [phone] PCP - General Other 06/16/22 Real Estate Inspector Relationship Specialty Start Date End Date [facility] Other [address] [place] [address] PCP - General Other 06/16/22 Real Estate Inspector Relationship Specialty Start Date End Date [facility] Other [address] [place] [address] PCP - General Other 06/16/22 Real Estate Inspector Relationship Specialty Start Date End Date [facility] Other [address] [place] [address] PCP - General Other 06/16/22 Real Estate Inspector Relationship Specialty Start Date End Date [facility] Other [address] [place] [address] PCP - General Other 06/16/22 Real Estate Inspector Relationship Specialty Start Date End Date [facility] Other [address] [place] [address] PCP - General Other 06/16/22 Real Estate Inspector Relationship Specialty Start Date End Date Zayra Hart DO [address] [place] [address] PCP - General Family Medicine 03/31/19 Real Estate Inspector Relationship Specialty Start Date End Date Zayra Hart DO [address] [place] [address] PCP - General Family Medicine 03/31/19 Real Estate Inspector Relationship Specialty Start Date End Date Zayra Hart DO [address] [place] [address] PCP - General Family Medicine 03/31/19 Real Estate Inspector Relationship Specialty Start Date End Date Zayra Hart DO [address] [place] [address] PCP - General Family Medicine 03/31/19 Real Estate Inspector Relationship Specialty Start Date End Date Zayra Hart DO [address] [place] [address] PCP - General Family Medicine 03/31/19 Real Estate Inspector Relationship Specialty Start Date End Date Zayra Hart DO [address] [place] [address] PCP - General Family Medicine 03/31/19 Real Estate Inspector Relationship Specialty Start Date End Date Zayra Hart DO [address] [place] [address] PCP - General Family Medicine 03/31/19 Real Estate Inspector Relationship Specialty Start Date End Date Zayra Hart DO [address] [place] [address] PCP - General Family Medicine 03/31/19 Real Estate Inspector Relationship Specialty Start Date End Date Zayra Hart DO [address] [place] [address] PCP - General Family Medicine 03/31/19 Real Estate Inspector Relationship Specialty Start Date End Date Zayra Hart DO [address] [place] [address] PCP - General Family Medicine 03/31/19 Real Estate Inspector Relationship Specialty Start Date End Date Evelyn Hartica DO Humphrey [address] [place] [address] PCP - General Family Medicine 03/31/19 Real Estate Inspector Relationship Specialty Start Date End Date Evelyn Hartveronica YinDO [address] [place] [address] PCP - General Family [facility] 03/31/19 Real Estate Inspector Relationship Specialty Start Date End Date Zayra Hart DO [address] [place] [address] PCP - General Family [facility] 03/31/19 Goals (unrecognized section and content) Goals [...] BE BASED ON THE PRIMARY CLINICAL RECORDS. [facility]. provides no warranty or guarantee of the accuracy or completeness of information in this document.
== END 2025-02-08 14:35 ==
LOC: PM 14:34
PROVIDERS: Visit Provider Nurse Practitioner
DX: M96.1 Postlaminectomy syndrome, not elsewhere classified (principal)

== ENCOUNTER 2025-05-03 10:44 | Outpatient (OUT) | payer BC, SELFPAY ==
--- OUTSIDE RECORDS SUMMARY | 2025-05-03 10:48 | XMS_ITS | Clinical Summary ---
Author Organization [facility] Address [address] [place] [address] Care Team Providers Care Patient Relations Specialist Name Role Phone Zayra Hart MD Primary Care Provider [phone] Allergies Active AllergyReactionsCriticalityNoted DateCommentsChlorhexidineRashMedium 5CodeineShortness of ikulohOajl82/08/2013Hydrocodone-AcetaminophenHives ,CaqbFeaxlr11/26/2024Penicillin RSmoaYwx11/15/2021PhentermineShortness of breath High2SertralineNausea And Vomiting,Shortness of yknetwPrxt40/04/2014 Sulfa (Sulfonamide Antibiotics)Shortness of breath,VesfpgalBkay97/05/2012 Medications MedicationSigDispense QuantityRefillsLast FilledStart DateEnd DateStatus estradiol (Climara) 0.05 mg/[address] 1 patch on the skin.4Active gabapentin (Neurontin) 300 mg capsule Take 600 mg by mouth at bedtime.Active metFORMIN (Glucophage) 1,000 mg tablet Take 1 tablet by mouth with breakfast and with evening meal.11/08/2023ctive pantoprazole (ProtoNix) 40 mg EC tablet Take 40 mg by mouth in the morning and at bedtime.Active PARoxetine (Paxil) 30 mg tablet Use 1 tablet in the mouth or throat in the morning.11/08/2023ctive verapamil SR (Calan-SR) 240 mg ER tablet Take 1 tablet by mouth in the morning.11/02/2023ctive montelukast (Singulair) 10 mg tablet Take 10 mg by mouth at bedtime.Active nabumetone (Relafen) 500 mg tablet Take 500 mg by mouth two times daily.5Active topiramate 50 mg tablet Take 50 mg by mouth at bedtime.5Active lisinopril 5 mg tablet Take 5 mg by mouth in the morning.5Active melatonin 5 mg tablet Take 5 mg by mouth at bedtime.Active Active Problems ProblemNoted DateDiagnosed QklkUpznjqvbposb12/24/2025Osteoarthritis of right knee11/21/2024hronic pain rrildicz85/24/2025Lumbar stenosis with neurogenic wynmvkjfreuj55/21/2024Spinal stenosis of lumbar region at multiple levels 10/19/20237313Dzprewfnjnndl22/18/2023ostoperative state09/07/2022Morbid obesity with body mass index of 50 or fmmvsl6708/13/20226996Hqppjnbseoxb15/14/2022 Osteoarthritis of right acromioclavicular joint10/29/2021eripheral venous rxxqkktxpouul59/01/2022Type 2 diabetes mellitus without complication, without long-term current use of yomakls0803/31/2019Anxiety and ewwkyjpfwc41/19/2018GERD (gastroesophageal reflux disease)03/02/2014Hiatal phqfle0403/02/2014rthritis of left knee10/05/2013Status post skin graft02/10/2013Essential hypertension, mrflht4009/28/2011Multiple ewxaekgty26/30/2012 Social History Tobacco UseTypesPacks/DayYears UsedDateSmoking Tobacco: NeverSmokeless Tobacco: Never Tobacco Cessation:Counseling Given: Not Answered Alcohol UseStandard Drinks/WeekCommentsNever0 (1 standard drink = 0.6 oz pure alcohol)Humiliation, Afraid, Rape, and Kick questionnaireAnswerDate Recorded Within the last year, have you been afraid of your partner or ex-partner?Patient unable to atvmip3512/25/2024Emotionally AbusedNot on file12/25/2024Physically AbusedNot on file12/25/2024Sexually AbusedNot on file12/25/2024PHQ-2AnswerDate RecordedPatient Health Questionnaire-2 Ewqqp471CommentsNoSex and Gender InformationValueDate RecordedSex Assigned at EjnpzVqpgwn90/16/2024 1:20 PM EDTLegal GopOmftgt17/30/2024 2:36 PM EDTGender UmmmyjzwQxfwce01/16/2024 1:20 PM EDTSexual OrientationDon't know02/14/2024 1:20 PM EDT Last Filed Vital Signs Vital SignReadingTime TakenCommentsBlood Lqotgqyw087/69012/25/2024 9:47 AM EDT Yybmm586612/25/2024 9:47 AM ENWUtmodmrakie87.1 ??C (98.8 ??F)12/25/2024 9:47 AM EDTRespiratory Udgp596512/14/2024 1:40 PM EDTOxygen Xxqfrpyryc26%12/14/2024 1:40 PM EDTInhaled Oxygen Concentration--Mjsoue009 kg (325 lb)12/25/2024 9:47 AM EDT Rdenrp858.6 cm (5' 6 )12/25/2024 9:47 AM EDTBody Mass Index52.46012/25/2024 9:47 AM EDT Plan of Treatment Health MaintenanceDue DateLast DoneCommentsCT Kgplvasoklpi54/17/1976Diabetes: Hemoglobin A1C1975FIT-DNA1975FIT1975FOBT1975 Uxyhrtjxqtuuy20/17/1976Diabetes: Retinopathy Krgmxucof93/17/1986Hepatitis B Vaccines (1 of 3 - 19+ 3-dose series)1994Pneumococcal Vaccine: Pediatrics (0 to 5 Years) and At-Risk Patients (6 to 64 Years) (1 of 2 - PCV)1994Pap Smear1996Adult Rbtrvko8306/16/1997Cervical Cancer Znosaqaoe28/17/2006 HPV/Trplxv3606/16/2005COVID-19 Vaccine (1 - 2024- season)2025Influenza Vaccine (#1)/, 04/15/2015, 04/15/2015, Additional history existsZoster Vaccines (1 of 2)2025Diabetes: Urine Protein Screening 606/, 2Depression Inypbqlnc78 Hihuufazn13/, 12/03/2022, 11/14/20192995Vkjeqiefdhy07/22/2031 1Colorectal Cancer Fgsvyfpbz27/22/2031HIB VaccinesAged OutNo longer eligible based on patient's age to complete this topicHPV VaccinesAged OutNo longer eligible based on patient's age to complete this topicIPV VaccinesAged OutNo longer eligible based on patient's age to complete this topicMeningococcal B VaccineAged OutNo longer eligible based on patient's age to complete this topicMeningococcal VaccineAged OutNo longer eligible based on patient's age to complete this topicRotavirus VaccinesAged OutNo longer eligible based on patient's age to complete this topic Medical Devices ImplantedTypeAreaManufacturerDevice IdentifierShelf Expiration DateModel / Serial / LotWavewriter Alpha 16 Generator [id number] Implanted:Qty: 1 on 12/14/2024 by [facility]DeviceN/A: Back[place] Naqiytrkfr04/30/[id number] / [id number] / [id number] 50 Cm 2x8 Truck Leasing Manager Kit Implanted:Qty: 1 on 12/14/2024 by Hunter Sánchez MD at [facility] CenterLeadN/A: Spine ThoracicBoston Palupilrph63/31/[id number] / [id number] / Insurance Care Teams Team MemberRelationshipSpecialtyStart DateEnd Date Zayra Hart MD [address] [place] [address] [facility] - [facility]12/28/23
--- OUTSIDE RECORDS SUMMARY | 2025-05-03 10:48 | XMS_ITS | Clinical Summary ---
Author Organization [facility] Address [address] [place] [address] Care Team Providers Care Soft Shoe Dancer Name Role Phone Unavailable Primary Care Provider Unavailabl e Social History Tobacco UseTypesPacks/DayYears UsedDateSmoking Tobacco: Never Assessed CommentsUnknownSex and Gender InformationValueDate RecordedSex Assigned at Not on fileLegal SpnCmtqzv97/15/2023 6:58 PM EDTGender IdentityNot on fileSexual OrientationNot on file Last Filed Vital Signs Vital SignReadingTime TakenCommentsBlood Hxoopwqm893/8501 12:00 PM EST Pulse--Temperature--Respiratory Rate--Oxygen Saturation--Inhaled Oxygen Concentration--Pvslxe038 kg (380 lb)05/14/2021 12:00 PM VPOZafcqt988.1 cm (5' 5 )05/14/2021 12:00 PM ESTBody Mass Index63.24107/15/2020 12:00 PM EST Plan of Treatment Not on file
--- OUTSIDE RECORDS SUMMARY | 2025-05-03 10:48 | XMS_ITS | Encounter Summary ---
Author Organization [facility] Address [address], [address] [place] [address] Care Team Providers Care Pond Worker Name Role Phone MickyZayra mcdonald Humphrey POWELL Primary Care Provider + [phone] Reason for Visit * ReasonCommentsMedication Refill Encounter Details DateTypeDepartmentCare Team (Latest Contact Info)Zgwbygcasbj00/03/2025Refill [facility] [address] [place] [address] Vanesa Owen MD [address] [place] [address] Medication Refill Social History Tobacco UseTypesPacks/DayYears UsedDateSmoking Tobacco: NeverSmokeless Tobacco: NeverAlcohol UseStandard Drinks/WeekCommentsNo0 (1 standard drink = 0.6 oz pure alcohol)[facility] UtilitiesAnswerDate RecordedIn the past 12 months has the [employer], gas, oil, or water [employer] threatened to shut off services in your home?No 07/19/2024UDIT-CAnswerDate RecordedQ1: How often do you have a drink containing alcohol?Never06/18/2024Q2: How many drinks containing alcohol do you have on a typical day when you are drinking?Patient does not drink06/18/2024Q3: How often do you have six or more drinks on one occasion?Never06/18/2024Overall Financial Resource Strain (CARDIA)AnswerDate RecordedHow hard is it for you to pay for the very basics like food, housing, medical care, and heating?Not hard at all 3PHQ-2AnswerDate RecordedPHQ-9 Total Zlmco344Hunger Vital Sign AnswerDate RecordedWithin the past 12 months, you worried that your food would run out before you got the money to buymore.Never true07/19/2024Within the past 12 months, the food you bought just didn't last and you didn't have money to get more.Never true07/19/2024PRAPARE - TransportationAnswerDate RecordedIn the past 12 months, has lack of transportation kept you from medical appointments or from getting medications?No07/19/2024In the past 12 months, has lack of transportation kept you from meetings, work, or from getting things needed for daily living?No07/19/2024Housing Stability Vital SignAnswerDate RecordedIn the last 12 months, was there a time when you were not able to pay the mortgage or rent on time?No10/19/2023In the last 12 months, how many places have you lived?1 10/19/2023In the last 12 months, was there a time when you did not have a steady place to sleep or slept in adirondackelter (including now)?No10/19/2023Housing Stability Vital SignAnswerDate RecordedIn the last 12 months, was there a time when you were not able to pay the mortgage or rent on time?No07/19/2024In the past 12 months, how many times have you moved where you were living? At any time in the past 12 months, were you homeless or living in a fpc (including now)?No07/19/2024Food InsecurityAnswerDate RecordedWithin the past 12 months, you worried that your food would run out before you got the money to buy more.Within the past 12 months, the food you bought just didn't last and you didn't have money to get more.Interpersonal Safety Domain Source: IP Abuse ScreeningAnswerDate RecordedPhysical jcghvYdrogc41/13/2024 Verbal bvmizXblrbk90/13/2024Emotional iixoeWugnec42/13/2024Financial abuseDenies 05/12/2024Sexual xgpebDckxks81/13/2024CommentsNoSex and Gender InformationValueDate RecordedSex Assigned at BirthNot on fileLegal SexFemale 07/10/2012 4:25 PM ESTGender IdentityNot on fileSexual OrientationNot on file documented as of this encounter Plan of Treatment DateTypeDepartmentCare Team (Latest Contact Info)Zlmyewinlix25/12/2025 9:30 AM ESTOffice Visit [facility] Part of [address] [place] [address] Jovany Rosas MD [address] [place] [address] new patient referral/ urinary xphpabvnqxdm16/16/2026 3:30 PM ESTOffice Visit [facility] [address] [place] [id number] Jessica Sánchez PA-C [address] [place], [place] [address] 1 year annualdocumented as of this encounter Visit Diagnoses Diagnosis Anxiety and depression Dysthymic disorder Type 2 diabetes mellitus without complication, without long-term current use of insulin (HCC) documented in this encounter Care Teams Team MemberRelationshipSpecialtyStart DateEnd Date Zayra Hart DO [address] [place] [address] PCP - GeneralFamily Kiwspylt77/1/19documented as of this encounter
--- OUTSIDE RECORDS SUMMARY | 2025-05-03 10:48 | XMS_ITS | Clinical Summary ---
Author Organization [facility] Address [address] [facility], [address] [place] [address] Care Team Providers Care [employer] Name Role Phone Zarya Hart DO Primary Care Provider [phone] Allergies Active AllergyReactionsCriticalityNoted DateCommentsPhentermineShortness Of VxvikrNbvh81/04/8278YfdalbxudogfgJujxki54/20/2025CodeineShortness Of BreathHigh 06/07/2012Hydrocodone-AcetaminophenHives,VxycQhuydp72/26/2024Penicillin GRashLow 1Sulfa AntibioticsShortness Of Breath,TxdhjeiaUvnf28/05/2012Sertraline Nausea And YsofzrchQja35/04/2014 Medications MedicationSigDispense QuantityRefillsLast FilledStart DateEnd DateStatus Melatonin 1 MG CAPS Take 3 mg by mouth nightlyActive nabumetone (RELAFEN) 500 MG tablet Take by mouth nabumetone 500 mg oral tablet (1 source) Nonsteroidal Anti- inflammatory Drug Start: 11-08-2024 take 1 tablet by mouth twice daily as needed for pain5Active topiramate (TOPAMAX) 50 MG tablet 50 mg po nightly 90 tablet 5Active gabapentin (NEURONTIN) 300 MG capsule Indications:FibromyalgiaTake 1 capsule by mouth 2 times daily for 180 days. 180 capsule 5Active lisinopril (PRINIVIL;ZESTRIL) 5 MG tablet Take 1 tablet by mouth daily 90 tablet 5Active estradiol (CLIMARA) 0.05 MG/24HR Indications:Artificial menopausePlace 1 patch onto the skin once a week 12 patch 6Active progesterone (PROMETRIUM) 100 MG CAPS capsule Indications:Artificial menopause,EndometriosisTake 1 capsule by mouth nightly 90 capsule 6Active pantoprazole (PROTONIX) 40 MG tablet TAKE 1 TABLET BY MOUTH TWICE A DAY 180 tablet tive montelukast (SINGULAIR) 10 MG tablet TAKE 1 TABLET BY MOUTH EVERYDAY AT BEDTIME 90 tablet 5Active verapamil (CALAN SR) 240 MG extended release tablet TAKE 1 TABLET BY MOUTH EVERY DAY 90 tablet 5Active PARoxetine (PAXIL) 30 MG tablet Indications:Anxiety and depressionTAKE 1 TABLET BY MOUTH EVERY DAY IN THE MORNING 90 tablet 5Active metFORMIN (GLUCOPHAGE) 1000 MG tablet Indications:Type 2 diabetes mellitus without complication, without long-term current use of insulin (HCC)TAKE 1 TABLET BY MOUTH TWICE A DAY WITH FOOD 180 tablet 05/02/2025tive verapamil (CALAN SR) 240 MG extended release tablet TAKE 1 TABLET BY MOUTH EVERY DAY 90 tablet Discontinued montelukast (SINGULAIR) 10 MG tablet TAKE 1 TABLET BY MOUTH EVERYDAY AT BEDTIME 90 tablet Discontinued pantoprazole (PROTONIX) 40 MG tablet TAKE 1 TABLET BY MOUTH TWICE A DAY 180 tablet Discontinued PARoxetine (PAXIL) 30 MG tablet Indications:Anxiety and depressionTAKE 1 TABLET BY MOUTH EVERY DAY IN THE MORNING 90 tablet Discontinued metFORMIN (GLUCOPHAGE) 1000 MG tablet Indications:Type 2 diabetes mellitus without complication, without long-term current use of insulin (HCC)TAKE 1 TABLET BY MOUTH TWICE A DAY WITH FOOD 180 tablet Discontinued progesterone (PROMETRIUM) 100 MG CAPS capsule Indications:Artificial menopause,EndometriosisTake 1 capsule by mouth nightly 30 capsule /Discontinued(REORDER) estradiol (CLIMARA) 0.05 MG/24HR Indications:Artificial menopausePlace 1 patch onto the skin once a week 12 patch Discontinued(REORDER) Active Problems ProblemNoted DateDiagnosed DateLumbar stenosis with neurogenic claudication 10/19/2023Spinal stenosis of lumbar region at multiple syhamz9510/19/2023 Lmygpvwtydqxa33/18/2023S/p RALH, BSO, MAILE, Cysto 09/09/2303/02/2023Fibromyalgia 05/13/2022dult body mass index 40 and over10/29/2021steoarthritis of right acromioclavicular joint10/29/2021eripheral venous zazzpkxtyxyfi61/01/2022Type 2 diabetes mellitus without complication, without long-term current use of insulin 03/31/2019Anxiety and /19/2018Hiatal jajflo0203/02/2014GERD (gastroesophageal reflux disease)03/02/2014rthritis of left knee10/05/2013 Status post skin graft02/10/2013Essential hypertension, zzyqoj0709/28/2011Multiple fcouiguds51/30/2012Osteoarthritis of right kneeDysmenorrhea Resolved Problems ProblemNoted DateDiagnosed DateResolved DatePelvic mass/nkle ulcer/11/2022Family history of DVT/05/2021Venous stasis ulcer Overview (01/23/2013): left leg s/p skin grafting Encounters DateTypeDepartmentCare JfusQvhnjxnrndr10/03/2025RefOn license of [facility] [place] [address] [place] [address] Vanesa Owen MD Medication Nitmvo6604/14/20[address] [address] Zayra Hart, Medication Lxpdcw1404/13/2025Results Follow-Up [facility] Services [facility] [facility] [address] [place] [address] Jessica Sánchez PA-C 04/12/2025 4:32 PM EST - 04/12/2025 11:59 PM ESTHospital Encounter [facility] [address] [facility] [place] [address] Urinary incontinence, unspecified type Discharge Disposition: Home or Self Care04/12/2025 2:00 PM ESTOffice Visit [facility] [address] [place] [address] [address] [place] [address] Jessica Sánchez PA-C Artificial menopause (Primary Dx); Urinary incontinence, unspecified type; Screening mammogram for breast cancer; Endometriosis; Female bladder livavfva12/04/2025Refill [facility] [facility] [address] [place] [address] Jessica áSnchez PA-C Medication Egjohp9203/27/2025Telephone [facility] [address] [place] [address] [address] [place] [address] Denny Campos MD Med Refill Vevuhvfg84/14/2025Refill [facility] [address] [place] [address] [address] - [address] [place] [address] Jessica Sánchez PA-C Medication Refillfrom Last 3 Months Immunizations ImmunizationAdministration DatesNext DueInfluenza Virus Rgsooec8504/15/2015, 01/08/2014,02/16/2013,12/28/2011Influenza Whole01/08/2014,02/16/2013Influenza, FLUARIX, FLULAVAL, FLUZONE, (age 6 mo+), AFLURIA, (age 3 y+), IM, Trivalent PF, 0.5mL04/13/2017 Family History Medical HistoryRelationNameCommentsArthritisFatherDiabetesFatherHigh Blood PressureFatherCancerMotherHistory of breast cancer; History of skin cancerHigh Blood PressureMotherRelationNameStatusCommentsBrotherAliveChild 1AliveChild 2 AliveFatherAliveMaternal GrandfatherDeceasedMaternal GrandmotherDeceasedMother AlivePaternal GrandfatherDeceasedPaternal GrandmotherDeceasedSisterAlive Social History Tobacco UseTypesPacks/DayYears UsedDateSmoking Tobacco: NeverSmokeless Tobacco: Never Tobacco Cessation:Counseling Given: Not Answered Alcohol UseStandard Drinks/WeekCommentsNo0 (1 standard drink = 0.6 oz pure alcohol)[facility] UtilitiesAnswerDate RecordedIn the past 12 months has the [employer], gas, oil, or water [employer] threatened to shut off services in your [...] heating?Not hard at all 3PHQ-2AnswerDate RecordedPHQ-9 Total Oxmvh713Hunger Vital Sign AnswerDate RecordedWithin the past 12 [...] steady place to sleep or slept in ashelter (including now)?No10/19/2023Housing Stability Vital SignAnswerDate RecordedIn the last 12 months, was there a time when you were not able to pay the mortgage or rent on time?No07/19/2024In the past 12 months, how many times have you moved where you were living? At any time in the past 12 months, were you homeless or living in a [place] facility (including now)?No07/19/2024Food InsecurityAnswerDate RecordedWithin the past 12 months, you worried that your food would run out before you got the money to buy more.Within the past 12 months, the food you bought just didn't last and you didn't have money to get more.Interpersonal Safety Domain Source: IP Abuse ScreeningAnswerDate RecordedPhysical tsmgoFudvxb34/13/2024 Verbal rjynnBxwvog33/13/2024Emotional iorgxXjezpq08/13/2024Financial abuseDenies 05/12/2024Sexual wzgtvCiawxb14/13/2024CommentsNoSex and Gender InformationValueDate RecordedSex Assigned at BirthNot on fileLegal SexFemale 07/10/2012 4:25 PM ESTGender IdentityNot on fileSexual OrientationNot on file Last Filed Vital Signs Vital SignReadingTime TakenCommentsBlood Bydvqtun839/7590304/12/2025 2:31 PM EST Tmuux892604/12/2025 2:31 PM LHQNtmmexofxxr69.6 ??C (97.9 ??F)04/12/2025 2:15 PM ESTRespiratory Hupg681206/18/2024 2:03 PM ESTOxygen Reecbhzsoc59%04/12/2025 2:15 PM ESTInhaled Oxygen Concentration--Hvyjls292 kg (326 lb 3.2 oz)04/12/2025 2:15 PM JILDkdwvu088.6 cm (5' 5.98 )11/17/2024 7:46 AM EDTBody Mass Index52.68 11/17/2024 7:46 AM EDT Plan of Treatment DateTypeDepartmentCare Team (Latest Contact Info)Fhyukkjimdv74/12/2025 9:30 AM ESTOffice Visit [facility] Part of [address] [place] [address] Jovany Rosas MD [address] [place] [address] new patient referral/ urinary xzfwkcnaawts42/16/2026 3:30 PM ESTOffice Visit [facility] Services [address] [facility] [address] [place] [phone] Jessica Sánchez PA-C [address] [facility] [address] [place] [address] 1 year annualHealth MaintenanceDue DateLast DoneCommentsDTaP/Tdap/Td vaccine (1 - Tdap)1994Hepatitis B vaccine (1 of 3 - 19+ 3-dose series)1994 Pneumococcal 0-49 years Vaccine (1 of 2 - PCV)1994FIT/FOBT: Average risk 2020Fecal-DNA (Cologuard): Average risk2020igmoidoscopy/CT ymmihczbmveb89/17/2021iabetic retinal exam/, 10/10/2020Flu vaccine (#1)/, 04/15/2015, 01/08/2014, Additional history existsCOVID-19 Vaccine ( - 2023- season)2025GFR test (Diabetes, CKD 3- 4, OR last GFR 15-59)/08/2023, 10/22/2023, 10/21/2023, Additional history tsyqvgSmwkut53/04/239659/08/2023, 09/18/2021, 06/28/2020, Additional history kisfqkU4E test (Diabetic or Prediabetic)/, 02/02/2024, 10/01/2023, Additional history existsDepression Gluhyengqk02/20/2026 11/17/2024, 11/17/2024Diabetic Alb to Cr ratio (uACR) test, 09/18/2021, 1Diabetic foot exam/, 06/14/2023, 04/02/2021, Additional history existsBreast cancer hudago21, 12/03/2022, 11/14/2019, Additional history uifyzfWrxdqxftdyi96/22/203107/ Colorectal Cancer Ykkadu7912/19/2030HIV objvmhPkabosgkn89/09/2016 (Declined) Overridden with the intention of not completing the topicCervical cancer screen DiscontinuedPap yoiopEjqfybxdnsky79/22/2021, 11/09/2019, 10/29/2016, Additional history existsHepatitis C eucchsXulfpriat72/21/2022HPV (without or with Pap) DiscontinuedHepatitis A vaccineAged OutNo longer eligible based on patient's age to complete this topicHib vaccineAged OutNo longer eligible based on patient's age to complete this topicMeningococcal (ACWY) vaccineAged OutNo longer eligible based on patient's age to complete this topicMeningococcal B vaccineAged OutNo longer eligible based on patient's age to complete this topicPolio vaccineAged OutNo longer eligible based on patient's age to complete this topic Medical Devices ImplantedTypeAreaManufacturerDevice IdentifierShelf Expiration DateModel / Serial / LotPatch Morena L Dia3.2in Cir W/ Strp [employer] Absrb - [id number] Implanted:Qty: 1 on 04/07/2022 by Goldie Ace DO at [facility] SHELLY-WD04/28/[id number] / / [id number]:Size and expiration date confirmed with surgeonSet Screw 5.5-6.0 - [id number] Implanted:Qty: 4 on 10[facility]19/20[facility] Spine LumbarS[employer]GAL[employer] [id number] / / Screw Poly Solid 7.5x50 - [id number] Implanted:Qty: 2 on 10/19/2023 [facility]: Spine LumbarS[employer] [id number] / / Screw Poly Solid 7.5x45 - [id number] Implanted:Qty: 2 on 10/19/2023 [facility]: Spine LumbarS[employer] [id number] / / Konrad Ti Prebent 5.5x40 - [id number] Implanted:Qty: 2 on 10/19/2023 [facility]: Spine LumbarS[employer] [id number] / / Procedures Procedure NamePriorityDate/TimeAssociated DiagnosisCommentsMICROSCOPIC WAJXXLPYWKAeizpxv81/13/2025 4:33 PM EST URINALYSIS WITH REFLEX TO NRANIVKHdljmba02/13/2025 4:33 PM EST Urinary incontinence, unspecified type POCT GLYCOSYLATED HEMOGLOBIN (HGB A1C)Gjldnzb7111/17/2024 8:01 AM EDT Type 2 diabetes mellitus without complication, without long-term current use of insulin (HCC) ALBUMIN/CREATININE RATIO, VAHQYSihdize66/20/2025 8:00 AM EDT Type 2 diabetes mellitus without complication, without long-term current use of insulin (HCC) DANIELLE NANO DIGITAL SCREEN NZPVVCGLNYclmhoa10/18/2024 3:33 PM EDT Breast cancer screening by mammogram COMPREHENSIVE METABOLIC KRKJCHgksdcy88/04/2024 8:57 AM EDT Type 2 diabetes mellitus without complication, without long-term current use of insulin (HCC) LIPID PIXJUTwvgnwt85/04/2024 8:57 AM EDT Type 2 diabetes mellitus without complication, without long-term current use of insulin (HCC) HM DIABETES EYE LLALWznxpxe24/15/2022HEPATITIS C LUCYVBUEEzepidn93/21/2022 11:03 AM EDT Encounter for hepatitis C screening test for low risk patient HM PAP RCGLGYydwwcj37/22/2021HM MXMJWVFLEPBXknghci38/22/2021from Last 3 Months or Most Recently Relevant to Health Maintenance Results * (ABNORMAL) Urinalysis with Reflex to Culture (04/12/2025 4:33 PM EST)Component ValueRef RangeTest MethodAnalysis TimePerformed AtPathologist SignatureColor, UADark Yellow(A)Pkxlfc9204/12/2025 4:33 PM ESTMERCY LABORATORIESTurbidity UA Cloudy(A)Clear04/12/2025 4:33 PM ESTMERCY LABORATORIESGlucose, UrNEGATIVE NEGATIVE mg/dL04/12/2025 4:33 PM ESTMERCY LABORATORIESBilirubin, UrineSMALL(A) ZDYPYIVL91/13/2025 4:33 PM ESTMERCY LABORATORIESKetones, UrineTRACE(A)NEGATIVE mg/dL04/12/2025 4:33 PM ESTMERCY LABORATORIESSpecific Sandy Level, UA1.031(H)1.003 - 1.3271404/12/2025 4:33 PM ESTMERCY LABORATORIESUrine HgbNEGATIVENEGATIVE 04/12/2025 4:33 PM ESTMERCY LABORATORIESpH, Urine5.05.0 - 8.011 4:33 PM ESTMERCY LABORATORIESProtein, UA1+(A)NEGATIVE mg/dL04/12/2025 4:33 PM EST [facility] LABORATORIESUrobilinogen, Urine1.00.0 - 1.0 EU/dL04/12/2025 4:33 PM EST [facility]ATORIESNitrite, InrgmYMZWAQBVZARXAINS26/13/2025 4:33 PM ESTMERCY LABORATORIESLeukocyte Esterase, ShkbzJVINNDPTZBTFOAMT79/13/2025 4:33 PM EST [facility] LABORATORIESSpecimen (Source)Anatomical Location / LateralityCollection Method / VolumeCollection TimeReceived TdpiFknys59/13/2025 4:33 PM EST 04/12/2025 4:33 PM EST Narrative Authorizing ProviderResult TypeResult StatusAlyssa Gonzalo FELIZ ORDERABLES Final ResultPerforming OrganizationAddressCity/State/ZIP CodePhone Number [facility] [address] [place] [address], [facility] [phone] * (ABNORMAL) Microscopic Urinalysis (04/12/2025 4:33 PM EST)ComponentValueRef RangeTest MethodAnalysis TimePerformed AtPathologist SignatureWBC, UA5 TO 100 - 5 /HPF04/12/2025 4:33 PM ESTMERCY LABORATORIESRBC, UA2 TO 50 - 2 /HPF 04/12/2025 4:33 PM ESTMERCY LABORATORIESCasts UAHYALINE0 - 2 /LPF106/12/2024 4:33 PM ESTMERCY LABORATORIESCasts UA10 TO 200 - 2 /LPF106/12/2024 4:33 PM EST [facility] LABORATORIESEpithelial Cells, UA5 TO 100 - 5 /HPF04/12/2025 4:33 PM EST [facility] LABORATORIESBacteria, UAMANY(A)None04/12/2025 4:33 PM ESTMERCY LABORATORIESMucus, UA1+04/12/2025 4:33 PM ESTMERCY LABORATORIESSpecimen (Source)Anatomical Location / LateralityCollection Method / VolumeCollection TimeReceived Time04/12/2025 4:33 PM EST04/12/2025 4:33 PM EST Narrative Authorizing ProviderResult TypeResult StatusAlyssa Gonzalo FELIZ ORDERABLES Final ResultPerforming OrganizationAddressCity/State/ZIP CodePhone Number [facility] [address] [place] [address], [facility] [phone] * POCT glycosylated hemoglobin (Hb A1C) (11/17/2024 8:01 AM EDT)ComponentValue Ref RangeTest MethodAnalysis TimePerformed AtPathologist SignatureHemoglobin A1C6.0%Specimen (Source)Anatomical Location / LateralityCollection Method / VolumeCollection TimeReceived TimeBLOOD SPECIMEN / Kcofxis8511/17/2024 8:01 AM EDT Narrative Authorizing ProviderResult TypeResult StatusMiloyudiveronica Hart DOPOINT OF CARE TEST ORDERABLESFinal Result * (ABNORMAL) Albumin/Creatinine Ratio, Urine (11/17/2024 8:00 AM EDT)Component ValueRef RangeTest MethodAnalysis TimePerformed AtPathologist SignatureAlbumin Urine40(H)0 - 20 mg/L11/17/2024 8:00 AM EDTMERCY LABORATORIESCreatinine, Ur 419.0(H)28.0 - 217.0 mg/dL11/17/2024 8:00 AM EDTMERCY LABORATORIESComment: Reference range defined for 1st morning urineMicroalb/Pen Rider. Vimow255.0 - 25.0 mcg/mg creat11/17/2024 8:00 AM EDTMERCY LABORATORIESSpecimen (Source) Anatomical Location / LateralityCollection Method / VolumeCollection Time Received TimeUrine (Urine)11/17/2024 8:00 AM EDT11/17/2024 9:40 AM EDT Narrative Authorizing ProviderResult TypeResult StatusMiloyudiveronica Hart DOURINE ORDERABLES Final ResultPerforming OrganizationAddressCity/State/ZIP CodePhone Number [facility] [address] [place] [address], [facility] [phone] [facility] Chronicity [address] [phone] * DANIELLE NANO DIGITAL SCREEN BILATERAL (03/17/2024 3:33 PM EDT)Anatomical Region LateralityModalityBreastBilateralMammographySpecimen (Source)Anatomical Location / LateralityCollection Method / VolumeCollection TimeReceived Time 03/20/2024 9:23 AM EDT Impressions 03/20/2024 9:24 AM EDT No mammographic evidence of malignancy BIRADS: BIRADS - CATEGORY 1 Negative. ??Normal interval follow-up is recommended in 12 months. OVERALL ASSESSMENT - NEGATIVE A letter of notification will be sent to the patient regarding the results. [employer] recommends annual mammograms for women 40 years and older. Performing Facility: [place] [address] Narrative 03/20/2024 9:24 AM EDT EXAMINATION: SCREENING DIGITAL BILATERAL MAMMOGRAM WITH TOMOSYNTHESIS, 03/17/2024 TECHNIQUE: Screening mammography was performed with tomosynthesis including MLO and CC views of the bilateral breasts. Computer aided detection was used for the interpretation of this exam. COMPARISON: December 03, 2022 and November 14, 2019 HISTORY: Screening. FINDINGS: The breasts are almost entirely fatty. ??There is no dominant mass, architectural distortion or concerning grouping of microcalcification in either breast. Authorizing ProviderResult TypeResult StatusAlyssa Gonzalo CAMEJO MAMMOGRAPHY ORDERABLESFinal Result * (ABNORMAL) Lipid Panel (02/02/2024 8:57 AM EDT)ComponentValueRef RangeTest MethodAnalysis TimePerformed AtPathologist SignatureCholesterol, Xjwwf2122 - 199 mg/dL02/02/2024 8:57 AM EDTMERCY LABORATORIESComment: Cholesterol Guidelines: <200 Desirable 200-240 ??Borderline >240 Undesirable HDL40(L)>40 mg/dL02/02/2024 8:57 AM EDTMERCY LABORATORIESComment: HDL Guidelines: <40 Undesirable 40-59 ?Borderline >59 Desirable LDL Mouvzvsugra283 - 100 mg/dL02/02/2024 8:57 AM EDTMERCY LABORATORIESComment: LDL Guidelines: <100 Desirable 100-129 ?? Near to/above Desirable 130-159 ?? Borderline >159 Undesirable Direct (measured) LDL and calculated LDL are not interchangeable tests. Chol/HDL Ratio4. 8:57 AM EDTMERCY NMONGKUJHREVXtgtfybmagklp586(H)<150 mg/dL02/02/2024 8:57 AM EDTMERCY LABORATORIESComment: Triglyceride Guidelines: <150 Desirable 150-199 ??Borderline 200-499 ??High >499 Very high Based on AHA Guidelines for fasting triglyceride, February 2012. YPEO88md/dL02/02/2024 8:57 AM EDTMERCY LABORATORIESSpecimen (Source)Anatomical Location / LateralityCollection Method / VolumeCollection TimeReceived TimeBlood BLOOD SPECIMEN / Myqotda1402/02/2024 8:57 AM EDT02/02/2024 8:58 AM EDT Narrative Authorizing ProviderResult TypeResult StatusJeharvey Humphrey Weeksharry DOCHEMISTRY ORDERABLESFinal ResultPerforming OrganizationAddressCity/State/ZIP CodePhone Number [facility] [address] [place] [address], [facility] [phone] [facility] [address] [place] [address], [facility] [phone] * (ABNORMAL) Comprehensive Metabolic Panel (02/02/2024 8:57 AM EDT)Component ValueRef RangeTest MethodAnalysis TimePerformed AtPathologist SignatureSodium 780952 - 144 mmol/L02/02/2024 8:57 AM Definition 6 LABPotassium4.1 3.7 - 5.3 mmol/L02/02/2024 8:57 AM Definition 6 CEUJoyypoye58(L)98 - 107 mmol/L02/02/2024 8:57 AM Definition 6 DOQIO32424 - 31 mmol/L 02/02/2024 8:57 AM Definition 6 LABAnion Cuv654 - 17 mmol/L 02/02/2024 8:57 AM Definition 6 LYNQlotusj798(H)70 - 99 mg/dL 02/02/2024 8:57 AM Definition 6 ZNVKTI68 - 20 mg/dL02/02/2024 8:57 AM Definition 6 LABCreatinine0.90.5 - 0.9 mg/dL02/02/2024 8:57 AM Definition 6 LABEst, Glom Filt Rate79>60 mL/min/1.74w97802/02/2024 8:57 AM Definition 6 LABComment: ? These results are not intended for use in patients <18 years of age. ? eGFR results are calculated without a race factor using the 2020 CKD-EPI equation. Careful clinical correlation is recommended, particularly when comparing to results calculated using previous equations. The CKD-EPI equation is less accurate in patients with extremes of muscle mass, extra-renal metabolism of creatine, excessive creatine ingestion, or following therapy that affects renal tubular secretion. BUN/Creatinine Akzoz097 - 8:57 AM [facility] Calcium9.78.6 - 10.4 mg/dL02/02/2024 8:57 AM EDTrackway VIMAL LABTotal Protein7.66.4 - 8.3 g/dL02/02/2024 8:57 AM EDTrackway VIMAL LABAlbumin3.9 3.5 - 5.2 g/dL02/02/2024 8:57 AM EDTrackway VIMAL LABTotal Bilirubin0.3 0.3 - 1.2 mg/dL02/02/2024 8:57 AM [facility] LABAlkaline Ouycfpimvss418(H)35 - 104 U/L02/02/2024 8:57 AM [facility] TMAAOS41 5 - 33 U/L02/02/2024 8:57 AM [facility] COJSDB05<32 U/L02/02/2024 8:57 AM [facility] LABSpecimen (Source)Anatomical Location / LateralityCollection Method / VolumeCollection TimeReceived TimeBloodBLOOD SPECIMEN / Tlzszfd5602/02/2024 8:57 AM EDT02/02/2024 8:58 AM EDT Narrative Authorizing ProviderResult TypeResult StatusJeharvey Hart DOCHEMISTRY ORDERABLESFinal ResultPerforming OrganizationAddressCity/State/ZIP CodePhone Number [facility] [address] [place] [address], [facility] [phone] * DIABETES EYE EXAM (05/14/2022) Narrative Authorizing ProviderResult TypeResult StatusHistorical Provider MDHEALTH MAINTENANCEFinal Result * Hepatitis C Antibody (09/18/2021 11:03 AM EDT)ComponentValueRef RangeTest MethodAnalysis TimePerformed AtPathologist SignatureHepatitis C AbNONREACTIVE CAGYRLYRCYZ67/21/2022 11:03 AM EDTMERCY LABORATORIESComment: ? The hepatitis C procedure used in our laboratory is a Chemiluminescent test specific for three recombinant HCV antigens. ??A negative anti-HCV result indicates that the antibodies to hepatitis C virus are not present at this time. Individuals with reactive anti-HCV should be considered infected and infectious until proven otherwise. ??Confirmation of all equivocal or reactive results is recommended by ordering HCV RNA by PCR. Specimen (Source)Anatomical Location / LateralityCollection Method / Volume Collection TimeReceived TimeBLOOD SPECIMEN / Enfkfoe0209/18/2021 11:03 AM EDT 09/18/2021 11:06 AM EDT Narrative Authorizing ProviderResult TypeResult StatusZayra Hart DOIMMUNOLOGY ORDERABLESFinal ResultPerforming OrganizationAddressCity/State/ZIP CodePhone Number [facility] [address] [place] [address], [facility] [phone] [facility] Chronicity [address] [place], [place] [address] [phone] * PAP SMEAR (02/19/2021) Narrative Authorizing ProviderResult TypeResult StatusHistorical Provider MDHEALTH MAINTENANCEFinal Result * COLONOSCOPY (12/19/2020) Narrative Authorizing ProviderResult TypeResult StatusHistorical Provider MDHEALTH MAINTENANCEFinal Result from Last 3 Months or Most Recently Relevant to Health Maintenance Insurance * Guarantor: Sarah Becerra TypeRelation to PatientDate of BirthPhone Billing AddressPersonal/FnqylvRkzi09/17/1976 (Home) [address] [place] [address] * Guarantor: Sarah Becerra TypeRelation to PatientDate of BirthPhone Billing AddressPersonal/QhiyxmQffq87/17/1976 (Home) (Work) [address] [place] [address] Advance Directives * Full Code (Latest Code Status on File) Date ActivatedDate InactivatedComments10/19/2023 8:54 AM10/22/2023 2:37 PM * Full Code Date ActivatedDate InactivatedComments09/08/2022 6:19 AM09/09/2022 3:54 PM * Full Code Date ActivatedDate InactivatedComments12/10/2021 12:29 PM12/10/2021 4:31 PM * Full Code Date ActivatedDate WmioyozijewTfullhen85/24/2020 6:56 AM05/23/2020 12:41 PM * Full Code Date ActivatedDate JhwgzuaghbwUghkrsvg53/10/2020 11:09 AM05/09/2020 3:43 PM NameRelationshipHealthcare Agent RelationshipCommunicationNeil YoungSpouse Primary Decision Maker* (Home) * (Mobile) Care Teams Team MemberRelationshipSpecialtyStart DateEnd Date Zayra Hart DO [address] [place] [id number] PCP - GeneralFamily Qlfwqcnu85/1/19
--- OUTSIDE RECORDS SUMMARY | 2025-05-03 10:52 | XMS_ITS | CCD ---
Author Organization [facility] Care Team Providers Care Date Pitter Name Role Phone Elias Alex Primary Care Provider Zayra Sloan Primary Care Provider Zayra Sloan Primary Care Provider [phone] Zayra Sloan DO Primary Care Provider [phone] HAI, DR GLENN Gambino Admitting Unavailable WEST, [...] Unavailable Zayra Sloan DO Primary Care Provider Zayra Sloan DO Primary Care Provider [phone] Zayra Sloan DO Primary Care Provider NON STAFF Primary Care Provider MD Ministerio Aguirre Attending Provider Yosapnaey DO, Zayra L Primary Care Provider Yostephen DO Zayra L Primary Care Provider [phone] [facility]. Other Primary Care Provider MARCE ELLIOT Attending Unavailable SIEGAL, ELLIOT Referring Unavailable [facility] OTHER Primary Care Unavailable [facility] OTHER Primary Care Unavailable [facility]. Other Primary Care Provider LUTMAN V, CHRISTOPHER Admitting Unavailabl e LUTMAN V, CHRISTOPHER Attending Unavailabl e REECENLEY, ZAYRA L Primary Care Unavailable HEMPHILL, KEILA S Attending Unavailable [facility] OTHER Primary Care Unavailable HEMPHILL, KEILA S Referring Unavailable [facility] OTHER Primary Care Unavailable HEMPHILL, KEILA S Referring Unavailable HEMPHILL, KEILA S Attending Unavailable [facility] OTHER Primary Care Unavailable HEMPHILL, KEILA S Referring Unavailable HEMPHILL, KEILA S Attending Unavailable PEDRO PABLO, SELVON F Referring Unavailable YONLEY, ZAYRA L Primary Care Unavailable PEDRO PABLO, SELVON F Referring Unavailable YONLEY, ZAYRA L Primary Care Unavailable PEDRO PABLO, SELVON F Admitting Unavailable PEDRO PABLO, SELVON F Attending Unavailable YONLEY, ZAYRA L Primary Care Unavailable Yonley DO, Zayra L Primary Care Provider [phone] SIEJENNY ELLIOT Attending Unavailable [facility] OTHER Primary Care Unavailable SIEGAL, ELLIOT Referring Unavailable SIEGAL, ELLIOT Attending Unavailable [facility] OTHER Primary Care Unavailable SIEGAL, ELLIOT Referring Unavailable SIEGAL, ELLIOT Admitting Unavailable LASHONDA, MARCEL R Referring Unavailable [facility] OTHER Primary Care Unavailable SIEGAL, ELLIOT Attending Unavailable [facility] OTHER Primary Care Unavailable SIEGAL, ELLIOT Attending Unavailable SIEGAL, ELLIOT Referring Unavailable SIEGAL, ELLIOT Referring Unavailable [facility], [facility] OTHER Primary Care Unavailable SIEGAL, ELLIOT Attending Unavailable HEMPHILL, KEILA S Attending Unavailable [facility], [facility] OTHER Primary Care Unavailable [...] YONLEY, ZAYRA L Primary Care Unavailable REEDER, ELDER J Referring Unavailable YONLEY, ZAYRA L Primary Care Unavailable REEDER, ELDER J Referring Unavailable YONLEY, ZAYRA L Primary [...] Unavailable YONLEY, ZAYRA L Primary Care Unavailable JEANINE, TINO Referring Unavailable YONLEY, ZAYRA L Primary Care Unavailable CIRILO, HUNTER Referring Unavailable CIRILO, HUNTER Attending Unavailable JORDAN JAIN Attending Unavailable RICARDO VIVEROS Referring Unavailable CIRILO, HUNTER Admitting Unavailable CIRILO, HUNTER Attending Unavailable CIRILO, HUNTER Attending Unavailable KERMITEJORDAN Referring Unavailable CIRILO, HUNTER Referring Unavailable CIRILO, HUNTER Referring Unavailable CIRILO, HUNTER Referring Unavailable Allergies Allergy ClassificationReported Allergen(s)Allergy TypeDate of OnsetReaction(s) FacilityOpioid Agonists (1 source)CodeineDrug Laawbog54-81-7467Mzhvhajdy Of BreathMercy HealthSerotonin Reuptake Inhibitors (SSRIs) (1 source)SertralineDrug Zvclscd13-05-2326Dhyuqe And VomitingMercy Health Sulfonamides (antibiotic) (1 source)Sulfonamides (Antibiotic)Drug Kqfjpho70-50-6354Xnklkaykv Of Breath, SwellingMercy Health (20 sources)Codeine; Translations: [codeine]Drug Kmyccem04-13-6323Belaglnwe Of BreathMercy Health- [place], [place] (20 sources)Sertraline; Translations: [SERTRALINE]Drug Tfkgssa32-78-0539Xzsqst And Vomiting, Shortness of BreathMercy Health- [place], [place] (20 sources)Sulfonamides (Antibiotic)Propensity to adverse reactions to drug 76-94-6731Oekxegpjd Of Breath, SwellingMercy Health- [place], [place] (1 source)CodeineDrug AllergyThe [facility] (1 source)SertralineDrug AllergyThe [facility] (1 source)Sulfonamides (Antibiotic)Drug allergy (disorder)[facility] (20 sources)Penicillin G; Translations: [PENICILLIN G]Drug Kzbirbm66-43-8975Fnjg [facility] Work Phone: (20 sources)Phentermine; Translations: [PHENTERMINE]Drug Loxtfyg39-57-7504 Shortness Of BreathMercy Health (2 sources)Sulfonamides (Antibiotic); Translations: [SULFA (SULFONAMIDE ANTIBIOTICS)]Allergy to tamjpiztk54-52-1893IqkuoivHol[facility] [place] (20 sources)Sulfonamides (Antibiotic)Propensity to adverse reactions to drug 46-47-5500Fjxzjnmeb Of Breath, SwellingBON [facility] (20 sources)Acetaminophen / HYDROcodone; Translations: [hydrocodone-acetaminophen]Drug Opnpofu82-74-4900Ibvez, KimberleyBON [facility]OL[facility] (1 source)Chlorhexidine; Translations: [Hibiclens][facility] (1 source)Sulfonamides (Antibiotic); Translations: [sulfa drugs]Propensity to adverse reactions to drug (disorder)[facility] (1 source)acetaminophen containing compounds; Translations: [acetaminophen containing compounds]Propensity to adverse reactions to drug (disorder)[facility] (3 sources)Chlorhexidine; Translations: [CHLORHEXIDINE]Drug Xjxyqtq35-38-5995Jyy [facility] Medications Current Medications MedicationDrug Class(es)DatesSig (Normalized)Sig (Original)acetaminophen 500 mg oral tablet (20 sources)Start: 02-11-2023 End: 16-95-9328mrmoqwkqtlfdu (OFIRMEV) IVPB 1,000 mgStart: 88-93-8628dfpz 2 tablets by mouth every six hours as needed for painacetaminophen (TYLENOL) 500 MG tablet Take 2 tablets by mouth every 6 hours as needed for Pain 60 tablet 1 09/08/2022 ActiveStart: 08-41-8337jvzg 1000 mg by mouth every six hours, then take 4000 mg by mouth every twenty-four hours1,000 mg, Oral, EVERY 6 HOURS, First dose on Wed09/08/22 at 1315, Until Discontinued Maximum dose of acetaminophen is 4000 mg from all sources in 24 hours. Post-opStart: 12-10-2021 End: 72-00-8556cqrwadqzvsbap (TYLENOL) tablet 650 mgacetaminophen 325 mg / HYDROcodone bitartrate 5 mg oral tablet (7 sources)Opioid AgonistStart: 12-24-2023 End: 62-90-4490CAAZOocjbof-acetaminophen (LORCET) 5-325 MG per tablet Indications: Tricompartment osteoarthritis of right knee Take 1 tablet by mouth every 4 hours as needed for Pain for up to 3 days. Intended supply: 3 days. Take lowest dose possible to manage pain Max Daily Amount: 6 tablets 18 tablet 0 12/24/2023 12/24/2023 Discontinued (Allergic response)Start: 02-11-2023 End: 60-89-2023aruc 1-2 tablets by mouth every four hours as neededhydroCODone- acetaminophen (NORCO) 5-325 MG per tablet 1-2 tabletStart: 02-11-2023 End: 05-63-5746ukvh 1 tablet by mouth four times daily as needed for pain hydroCODone-acetaminophen 5-325 MG tablet Indications: Elective surgery Take 1 tablet by mouth 4 times daily as needed for Moderate Pain for up to 5 days. 20 tablet 02/11/2023 ActiveStart: 12-10-2021 End: 97-77-2658qxdw 1 tablet by mouth every six hours as needed for pain HYDROcodone-acetaminophen (NORCO) 5-325 MG per tablet Indications: Dysmenorrhea Take 1 tablet by mouth every 6 hours as needed for Pain for up to 3 days. 10 tablet 0 12/10/2021 12/13/2021 ActiveStart: 11-21-8228JSZAGtpdgct-acetaminophen (NORCO) 5-325 MG per tablet 1 tabletacetaminophen 325 mg / oxyCODONE hydrochloride 5 mg oral tablet (3 sources)Opioid AgonistStart: 06-18-2024 End: 69-49-4930zrvSZKGXL-acetaminophen (PERCOCET) 5-325 MG per tablet Indications: Left knee pain, unspecified chronicity Take 1 tablet by mouth every 6 hours as needed for Pain for up to 3 days. Intended supply: 3days. Take lowest dose possible to manage pain Max Daily Amount: 4 tablets 12 tablet 06/18/2024 06/21/2024 ActiveStart: 12-24-2023 End: 86-63-5578lleVCRYUS-acetaminophen (ENDOCET) 5-325 MG per tablet Indications: Tricompartment osteoarthritis ofright knee Take 1 tablet by mouth every 6 hours as needed for Pain for up to 3 days. Intended supply: 3 days. Take lowest dose possible to manage pain Max Daily Amount: 4 tablets 12 tablet 0 12/24/2023 12/27/2023 ActiveStart: 12-24-2023 End: 28-99-3354aokSVKBOK-acetaminophen (PERCOCET) 5-325 MG per tablet 1 tablet [id number] 200 actuat albuterol 0.09 mg/actuat metered dose inhaler (20 sources)beta2-Adrenergic AgonistStart: 17-41-3490kthn 2 puff(s) by inhalation every six hours as needed for wheezingalbuterol sulfate HFA (VENTOLIN HFA) 108 (90 Base) MCG/ACT inhaler Inhale 2 puffs into the lungs every 6 hours as needed for Wheezing 1 Inhaler 3 11/28/2020 ActiveStart: 45-56-4146bror 2 puff(s) by inhalation four times daily as needed for wheezingalbuterol sulfate HFA (VENTOLIN HFA) 108 (90 Base) MCG/ACT inhaler Inhale 2 puffs into the lungs 4 times daily as needed for Wheezing or Shortness of Breath 1 Inhaler 0 09/23/2020 ActiveStart: 74-25-1042qrrz 2 puff(s) by inhalation every six hours as needed for wheezingalbuterol sulfate HFA (VENTOLIN HFA) 108 (90 Base) MCG/ACT inhaler Inhale 2 puffs into the lungs every 6 hours as needed for Wheezing 1 Inhaler 3 06/29/2019 ActiveStart: 51-77-3861zkwm 2 puff(s) by inhalation every six hours as needed for wheezingalbuterol sulfate HFA (VENTOLIN HFA) 108 (90 Base) MCG/ACT inhaler Inhale 2 puffs into the lungs every 6 hours as needed for Wheezing 1 Inhaler 3 06/29/2019 ActiveStart: 22-95-5352grjdqvkfe (PROVENTIL) nebulizer solution 2.5 mgStart: 25-40-0006wold 2 puff(s) by inhalation every six hours as needed for wheezingalbuterol sulfate HFA (PROAIR HFA) 108 (90 Base) MCG/ACT inhaler Indications: Bronchitis, acute, with bronchospasm Inhale 2 puffs into the lungs every 6 hours as needed for Wheezing 1 Inhaler 0 03/06/2019 ActiveStart: 28-93-0366aqlo 2 puff(s) by inhalation every six hours as needed for wheezingalbuterol sulfate HFA (PROAIR HFA) 108 (90 Base) MCG/ACT inhaler Indications: Bronchitis, acute, with bronchospasm Inhale 2 puffs into the lungs every 6 hours as needed for Wheezing 1 Inhaler 0 03/06/2019 Activeaspirin 325 mg delayed release oral tablet (1 source)Platelet Aggregation Inhibitor, Nonsteroidal Anti-inflammatory Drug Start: 34-35-1283nswa 1 tablet by mouth once dailyaspirin 325 MG EC tablet Take 1 tablet by mouth daily 30 tablet 1 04/13/2021 Activebenzonatate 100 mg oral capsule (1 source)Non-narcotic AntitussiveStart: 04-05-2020 End: 78-91-2688jimk 1 capsule by mouth three times daily as needed for cough benzonatate (TESSALON PERLES) 100 MG capsule Indications: Viral URI with cough Take 1 capsule by mouth 3 times daily as needed for Cough 21 capsule 0 04/05/2020 04/12/2020 ActiveBlood Glucose Monitoring Suppl (TRUETRACK BLOOD GLUCOSE) w/Device KIT (1 source)Start: 69-91-1380Bpatm Glucose Monitoring Suppl (TRUETRACK BLOOD GLUCOSE) w/Device KIT Indications: Type 2 diabetes mellitus without complication, without long-term current use of insulin ([facility]) Check blood sugar oncedaily in the morning fasting 1 kit 0 03/31/2019 Onwpoz67 actuat budesonide 0.16 mg/actuat / formoterol fumarate 0.0045 mg/actuat metered dose inhaler (2 sources)Corticosteroid, beta2-Adrenergic AgonistStart: 71-50-5213btss 2 puff(s) by inhalation twice dailybudesonide-formoterol (SYMBICORT) 160-4.5 MCG/ACT AERO Inhale 2 puffs into the lungs 2 times daily 1 Inhaler 5 05/15/2019 Activecalcium chloride 0.0014 meq/ml / potassium chloride 0.004 meq/ml / sodium chloride 0.103 meq/ml / sodium lactate 0.028 meq/ml injectable solution (9 sources)Start: 40-50-8651ndzhtogg ringers infusionStart: 81-53-2153noigtupw ringers infusionStart: 39-06-0523joabtgis ringers infusionStart: 04-11-2020 lactated ringers infusionStart: 65-34-5546tnewgvef ringers infusionStart: 31-53-1026qsnytmmw ringers infusionStart: 18-23-8123xrogqxzj ringers infusion celecoxib 200 mg oral capsule (20 sources)Nonsteroidal Anti-inflammatory DrugStart: 70-08-9689pvts 1 capsule by mouth twice dailycelecoxib (CELEBREX) 200 MG capsule Take 1 capsule by mouth 2 times daily 180 capsule 1 07/13/2024 ActiveStart: 49-13-3119bete 1 capsule by mouth twice dailyCelecoxib 200 MG capsule Take 1 capsule by mouth 2 times daily. 03/23/2023 ActiveStart: 81-54-3926xeiy 200 mg by mouth twice ydcxf500 mg, Oral, 2 TIMES DAILY, First dose on Wed09/09/22 at 0900, Until Discontinued, Post-op Start: 10-07-2020 End: 89-08-7863myvj 1 capsule by mouth twice dailycelecoxib (CELEBREX) 200 MG capsule TAKE 1 CAPSULE BY MOUTH TWICE A DAY 180 capsule 1 07/27/2022 Active Start: 69-33-8332yrjz 1 capsule by mouth twice dailycelecoxib (CELEBREX) 100 MG capsule take 1 capsule by mouth twice a day 60 capsule 5 04/29/2019 ActiveStart: 45-38-1572cpjz 1 capsule by mouth twice dailycelecoxib (CELEBREX) 100 MG capsule Take 1 capsule by mouth 2 times daily 60 capsule 3 12/26/2018 Active cephalexin 500 mg oral capsule (3 sources)Cephalosporin AntibacterialStart: 07-30-2022 End: 41-19-3757ipfp 1 capsule by mouth three times dailycephALEXin (KEFLEX) 500 MG capsule Indications: UTI symptoms Take 1 capsule by mouth 3 times daily for 7 days 21 capsule 0 07/30/2022 08/06/2022 Activecetirizine hydrochloride 10 mg oral tablet (14 sources)Histamine-1 Receptor AntagonistStart: 18-43-5993hbkl 1 tablet by mouth once dailycetirizine (ZYRTEC) 10 MG tablet Take 1 tablet by mouth daily 90 tablet 1 02/19/2022 Activecyclobenzaprine hydrochloride 10 mg oral tablet (1 source)Muscle RelaxantStart: 12-20-2019 End: 40-00-1415rbmb 1 tablet by mouth three times daily as needed for muscle spasmscyclobenzaprine (FLEXERIL) 10 MG tablet Take 1 tablet by mouth 3 times daily as needed for Muscle spasms 15 tablet 0 12/20/2019 12/25/2019 Active desloratadine 5 mg oral tablet (10 sources)Histamine-1 Receptor AntagonistStart: 75-23-7163gxdc 1 tablet by mouth once dailydesloratadine (CLARINEX) 5 MG tablet take 1 tablet by mouth once daily 90 tablet 1 06/12/2019 ActiveStart: 90-89-7489trzg 1 tablet by mouth once dailydesloratadine (CLARINEX) 5 MG tablet take 1 tablet by mouth once daily 90 tablet 1 12/16/2018 Activediclofenac sodium 0.01 mg/mg topical gel (1 source)Nonsteroidal Anti-inflammatory DrugStart: 26-35-6372xjwkhhtwvq sodium (VOLTAREN) 1 % GEL Apply 4 g topically 4 times daily 50 g 0 12/24/2023 Active Start: 50-39-3295akhoblbjnm sodium (VOLTAREN) 1 % GEL Apply 4 g topically 4 times daily 50 g 0 12/24/2023 Activedicyclomine hydrochloride 20 mg oral tablet (20 sources)AnticholinergicStart: 66-32-8813ofbm 1 tablet by mouth three times daily as neededdicyclomine (BENTYL) 20 MG tablet TAKE 1 TABLET BY MOUTH 3 TIMES A DAY NEEDED FOR ABDOMINAL CRAMPING 90 tablet 5 09/08/2023 ActiveStart: 91-97-0965wtzb 1 tablet by mouth three times daily as neededdicyclomine (BENTYL) 20 MG tablet TAKE 1 TABLET BY MOUTH 3 TIMES A DAY NEEDED FOR ABDOMINAL CRAMP ING 90 tablet 1 06/02/2022 ActiveStart: 60-96-3778uubf 1 tablet by mouth three times daily as neededdicyclomine (BENTYL) 20 MG tablet TAKE 1 TABLET BY MOUTH 3 TIMES A DAY NEEDED FOR ABDOMINAL CRAMPING 90 tablet 1 05/07/2022 ActiveStart: 93-87-5934hfvp 1 tablet by mouth three times daily as neededdicyclomine (BENTYL) 20 MG tablet TAKE 1 TABLET BY MOUTH 3 TIMES A DAY NEEDED FOR ABDOMINAL CRAMPING 90 tablet 1 03/16/2022 ActiveStart: 75-82-4894dsfo 1 tablet by mouth three times daily as neededdicyclomine (BENTYL) 20 MG tablet TAKE 1 TABLET BY MOUTH 3 TIMES A DAY NEEDED FOR ABDOMINAL CRAMPING 90 tablet 1 02/19/2022 ActiveStart: 44-34-3652xhyp 1 tablet by mouth three times daily as neededdicyclomine (BENTYL) 20 MG tablet TAKE 1 TABLET BY MOUTH 3 TIMES A DAY NEEDED FOR ABDOMINAL CRAMPING 90 tablet 1 12/24/2021 ActiveStart: 39-05-4744eucz 1 tablet by mouth three times daily as neededdicyclomine (BENTYL) 20 MG tablet TAKE 1 TABLET BY MOUTH 3 TIMES A DAY NEEDED FOR ABDOMINAL CRAMPING 90 tablet 1 11/28/2021 ActiveStart: 77-67-5289jwfr 1 tablet by mouth three times daily as neededdicyclomine (BENTYL) 20 MG tablet TAKE 1 TABLET BY MOUTH 3 TIMES A DAY NEEDED FOR ABDOMINAL CRAMPING 90 tablet 1 08/06/2021 ActiveStart: 02-30-2286ciyh 1 tablet by mouth three times daily as neededdicyclomine (BENTYL) 20 MG tablet TAKE 1 TABLET BY MOUTH 3 TIMES A DAY NEEDED FOR ABDOMINAL CRAMPING 90 tablet 1 05/19/2021 ActiveStart: 72-38-1988kqaa 1 tablet by mouth three times daily as neededdicyclomine (BENTYL) 20 MG tablet TAKE 1 TABLET BY MOUTH 3 TIMES A DAY NEEDED FOR ABDOMINAL CRAMPING 90 tablet 1 03/28/2021 ActiveStart: 50-13-0330fwet 1 tablet by mouth three times daily as neededdicyclomine (BENTYL) 20 MG tablet TAKE 1 TABLET BY MOUTH 3 TIMES A DAY NEEDED FOR ABDOMINAL CRAMPING 90 tablet 1 01/28/2021 ActiveStart: 86-79-1455bhyo 20 mg by mouth twice dailyDicyclomine Active 20 MG PO Twice daily December 19, 2020 12:00amStart: 56-77-4936qlvd 1 tablet by mouth three times daily as neededdicyclomine (BENTYL) 20 MG tablet TAKE 1 TABLET BY MOUTH THREE TIMES DAILY prn abd cramping 120 tablet 0 10/07/2020 ActiveStart: 09-02-2019 End: 12-59-4884lsri 1 tablet by mouth three times dailydicyclomine (BENTYL) 20 MG tablet TAKE 1 TABLET BY MOUTH THREE TIMES DAILY 0 09/02/2019 03/07/2020 D iscontinued (Therapy completed)Dicyclomine 20 MG tablet Take 1 tablet by mouth every 6 hours. USUALLY BID Active0.5 ml dulaglutide 3 mg/ml auto-injector (10 sources)GLP-1 Receptor AgonistStart: 49-10-2349vevayhekinc (TRULICITY) 1.5 MG/0.5ML SC injection Inject 0.5 mLs into the skin once a week 6 mL 2 12/17/2023 ActiveStart: 92-91-6584Tjtyityaviu (TRULICITY) 1.5 MG/0.5ML SOPN Inject 1.5 mg into the skin once a week 12 pen 1 01/14/2021 ActiveStart: 68-33-0905Bzkrsvqeyev (TRULICITY) 1.5 MG/0.5ML SOPN Inject 1.5 mg into the skin once a week 12 pen 0 10/07/2020 ActiveDulaglutide (Trulicity) 0.75 MG/0.5ML Solution Pen-injector injection Inject under the skin. ActiveDulaglutide (TRULICITY) 3 MG/0.5ML SOPN (1 source)Start: 03-01-0892Otfisxfvitp (TRULICITY) 3 MG/0.5ML SOPN Inject 3 mg into the skin once a week 2 mL 2 02/29/2024 ActiveDulaglutide (TRULICITY) 3 MG/0.5ML SOPN (1 source)Start: 83-35-9146Vtatoydvswv (TRULICITY) 3 MG/0.5ML SOPN Inject 3 mg into the skin once a week 2 mL 2 02/29/2024 ActiveDulaglutide 3 MG/0.5ML SOAJ (18 sources)Start: 50-99-7880Vdswwfrwcyj 3 MG/0.5ML SOAJ Inject 3 mg into the skin once a week 6 mL 1 04/13/2024 Activeertugliflozin 15 mg oral tablet (1 source)Start: 80-36-8783zfks 1 tablet by mouth once dailyErtugliflozin L- PyroglutamicAc (STEGLATRO) 15 MG TABS Take 15 mg by mouth daily 30 tablet 5 09/18/2021 Xoujqg599 hr estradiol 0.02097 mg/hr transdermal system (20 sources)EstrogenStart: 15-75-5320ltlcdczjm (CLIMARA) 0.05 MG/24HR Indications: Artificial menopause Place 1 patch onto the skin oncea week 4 patch 12 01/05/2024 ActiveStart: 84-18-8746dbnto 1 dose transdermal route every week Estradiol Active 1 PATCH TRANSDERML every week December 19, 2020 12:71ae495 hr estradiol 0.29287 mg/hr / levonorgestrel 0.668751 mg/hr transdermal system (7 sources)Progestin, Estrogen, Progestin-containing Intrauterine DeviceStart: 35-71-9148Zcjmbwofq-Levonorgestrel (Climara Pro) 0.045-0.015 MG/DAY Patch Weekly Place 1 patch on skin. 10/22/2022 Activeferrous sulfate 325 mg oral tablet (20 sources)Start: 53-79-5021mlbi 1 tablet by mouth twice dailyferrous sulfate (IRON 325) 325 (65 Fe) MG tablet Take 1 tablet by mouth 2 times daily 60 tablet 5 11/22/2020 Activetake 1 tablet by mouth once daily at bedtimeferrous sulfate 325 (65 Fe) MG tablet Take 1 tablet by mouth daily. hs 0 Activetake 1 tablet by mouth three times daily at mealtimeferrous sulfate 325 (65 Fe) MG tablet Take 1 tablet by mouth 3 times daily with meals. 0 Activefluconazole 100 mg oral tablet (3 sources)Azole AntifungalStart: 05-12-2024 End: 26-85-2168cyas 1 tablet by mouth once dailyfluconazole (DIFLUCAN) 100 MG tablet Take 1 tablet by mouth daily for 7 days 7 tablet 05/12/2024 05/19/2024 Activegabapentin 300 mg oral capsule (20 sources)Anti-epileptic AgentStart: 11-17-2024 End: 59-46-0868vboc 1 capsule by mouth twice dailygabapentin (NEURONTIN) 300 MG capsule Indications: Fibromyalgia Take 1 capsule by mouth 2 times daily for 180 days. 180 capsule 1 11/17/2024 05/16/2025 ActiveStart: 05-26-2024 End: 23-25-1284gsvd 1 capsule by mouth once dailygabapentin (NEURONTIN) 300 MG capsule Take 1 capsule by mouth nightly for 180 days. 90 capsule 1 05/26/2024 11/22/2024 ActiveStart: 11-12-2023 End: 00-66-6317ytln 1 capsule by mouth once dailygabapentin (NEURONTIN) 300 MG capsule Take 1 capsule by mouth nightly for 180 days. 90 capsule 1 11/12/2023 ActiveStart: 62-08-0430ajbw 300 mg by mouth once mg, Oral, NIGHTLY, First dose on Wed09/08/22 at 2100, Until Discontinued, Post-opStart: 07-13-2022 End: 62-75-2961dgbw 1 capsule by mouth twice dailygabapentin (NEURONTIN) 300 MG capsule Take 1 capsule by mouth 2 times daily for 90 days. 60 capsule2 07/13/2022 10/11/2022 ActiveStart: 05-13-2022 End: 92-54-2910ccifypniva (NEURONTIN) 300 MG capsule Take 1 capsule by mouth 2 times daily for 30 days. Intended supply: 30 days 60 capsule 0 05/13/2022 Active take 1 capsule by mouth three times dailyGabapentin 300 MG capsule Take 1 capsule by mouth 3 times daily. 0 Savvax1043 ml glucose 100 mg/ml injection (3 sources)Start: 52-79-1285jqul 1 mL intravenously every hourIntraVENous, at 100 mL/hr, CONTINUOUS PRN, if blood glucose remains LESS THAN 70 mg/dL after 2 dextrose 10% intravenous boluses or administration of glucagon, Starting on Wed09/08/22 at 1254 If bloodglucose fails to stabilize after 2 dextrose 10% intravenous boluses or glucagon administration, start dextrose 10% infusion at 100 mL/hour and repeat blood glucose at 30 and 60 minutes. If blood glucose is GREATER THAN 70 mg/dL after 60 minutes, discontinue dextrose 10% infusion. Post-opStart: 06-48-8041hbpplnsd bolus 10% 125 mLStart: 96-97-741909 g (4 tablet), Oral, PRN, Starting on Wed09/08/22 at 1254, Until Discontinued, Low blood sugar Ifblood glucose is LESS THAN 70 mg/dL and patient is alert and tolerating oral. Give 4 tablets (16g) Repeat blood glucose in 15 minutes. If blood glucose is LESS THAN 70 mg/dL, repeattreatment and recheck blood glucose in 15 minutes x 2. If blood glucose remains LESS THAN 70 mg/dL, notify provider. Post-op12 hr guaiFENesin 600 mg extended release oral tablet (14 sources)Start: 84-73-3590mlzn 1 tablet by mouth twice daily as needed for congestionguaiFENesin (MUCINEX) 600 MG extended release tablet Take 1 tablet by mouth 2 times daily as neededfor Congestion 30 tablet 0 02/19/2022 Active2.5 ml sodium hyaluronate 10 mg/ml prefilled syringe (4 sources)Start: 04-12-8032Zhacaz Hyaluronate 25 MG/2.5ML Solution Prefilled Syringe 0.75 mL by Intra-articular route Once (InClinic) for 1 dose. 7.5 mL 10/23/2022 ActivehydrOXYzine pamoate 25 mg oral capsule (7 sources)AntihistamineStart: 03-19-2022 End: 44-37-1089kgsb 1 capsule by mouth three times daily as neededhydrOXYzine pamoate (VISTARIL) 25 MG capsule Take 1 capsule by mouth 3 times daily as needed for Itching 30 capsule 0 03/19/2022 03/29/2022 ActiveStart: 46-87-3740ttje 1-2 tablets by mouth every eight hours as neededhydrOXYzine HCl (ATARAX) 25 MG tablet Take 1-2 tablets by mouth every 8 hours as needed for Tcyllfw47 tablet 0 12/20/2021 ActiveStart: 06-01-2021 End: 10-08-2967saltXRJljnq (VISTARIL) capsule 50 mgStart: 06-01-2021 End: 03-95-6570easc 1 capsule by mouth three times daily as neededhydrOXYzine (VISTARIL) 25 MG capsule Take 1 capsule by mouth 3 times daily as needed for Itching 20capsule 0 06/01/2021 06/15/2021 Activelabetalol (NORMODYNE;TRANDATE) injection 10 mg (1 source)Start: 31-24-8475anmiwwgui (NORMODYNE;TRANDATE) injection 10 mg levoFLOXacin 750 mg oral tablet (1 source)Quinolone AntimicrobialStart: 09-23-2022 End: 64-55-2866drzm 1 tablet by mouth once dailylevoFLOXacin (LEVAQUIN) 750 MG tablet Take 1 tablet by mouth daily for 7 days 7 tablet 0 305/07/2022 Activelisinopril 5 mg oral tablet (1 source)Angiotensin Converting Enzyme InhibitorStart: 44-21-4069oqee 1 tablet by mouth once dailylisinopril (PRINIVIL;ZESTRIL) 5 MG tablet Take 1 tablet by mouth daily 90 tablet 3 11/20/2024 Activeloratadine 10 mg oral tablet (20 sources)Start: 05-12-2024 End: 46-97-0807iwuk 1 tablet by mouth once dailyloratadine (CLARITIN) 10 MG tablet Take 1 tablet by mouth daily 30 tablet 05/12/2024 06/11/2024 ActiveStart: 17-97-0763niqx 10 mg by mouth once dailyLoratadine Active 10 MG PO Daily December 19, 2020 12:00amtake 1 tablet by mouth once dailyloratadine (CLARITIN) 10 MG tablet Take 10 mg by mouth daily 0 ActivemetFORMIN hydrochloride 1000 mg oral tablet (20 sources)BiguanideStart: 37-33-0498mfyp 1 tablet by mouth twice daily at mealtimemetFORMIN (GLUCOPHAGE) 1000 MG tablet Indications: Type 2 diabetes mellitus without complication, without long-term current use of insulin (HCC) TAKE 1 TABLET BY MOUTH TWICE A DAY WITH FOOD 180 tablet 1 11/06/2024 Active Start: 32-43-0263ydav 1 tablet by mouth twice daily at mealtimemetFORMIN (GLUCOPHAGE) 1000 MG tablet Indications: Type 2 diabetes mellitus without complication, without long-term current use of insulin TAKE 1 TABLET BY MOUTH TWICE A DAY WITH FOOD 180 tablet 1 05/05/2024 ActiveStart: 99-09-8752hgoa 1 tablet by mouth twice daily at mealtimemetFORMIN (GLUCOPHAGE) 1000 MG tablet Indications: Type 2 diabetes mellitus without complication, without long-term current use of insulin (HCC) TAKE 1 TABLET BY MOUTH TWICE A DAY WITH FOOD 180 tablet 1 11/08/2023 ActiveStart: 42-44-7861iaer 1 tablet by mouth twice daily at mealtimemetFORMIN (GLUCOPHAGE) 1000 MG tablet Indications: Type 2 diabetes mellitus without complication, without long-term current use of insulin (HCC) TAKE 1 TABLET BY MOUTH TWICE A DAY WITH MEALS 180 tablet 1 03/31/2022 Active Start: 91-06-9072dasa 1 tablet by mouth twice daily at mealtimemetFORMIN (GLUCOPHAGE) 1000 MG tablet Indications: Type 2 diabetes mellitus without complication, without long-term current use of insulin (HCC) Take 1 tablet by mouth twice daily with meals 180 tablet 1 09/18/2021 ActiveStart: 97-48-0264orvy 1 tablet by mouth twice daily at mealtimemetFORMIN (GLUCOPHAGE) 1000 MG tablet Indications: Type 2 diabetes mellitus without complication, without long-term current use of insulin (HCC) TAKE 1 TABLET BY MOUTH TWICE DAILY WITH MEALS 180 tablet 1 03/18/2020 ActiveStart: 03-81-6468uxse 1 tablet by mouth twice daily at mealtimemetFORMIN (GLUCOPHAGE) 1000 MG tablet Indications: Type 2 diabetes mellitus without complication, without long-term current use of insulin (HCC) Take 1 tablet by mouth 2 times daily (with meals) 180 tablet 1 09/11/2019 Active Start: 68-54-2607qkpv 1 tablet by mouth twice daily at mealtimemetFORMIN (GLUCOPHAGE) 500 MG tablet Indications: Type 2 diabetes mellitus without complication, without long-term current use of insulin (HCC) Take 1 tablet by mouth 2 times daily (with meals) 180 tablet 1 03/31/2019 Activetake 2 tablets by mouth twice daily at mealtimemetFORMIN 500 MG tablet Take 2 tablets by mouth 2 times daily with meals. ActivemethylPREDNISolone 4 mg oral tablet (1 source)CorticosteroidStart: 12-24-2023 End: 49-04-5367rxducoQEPWGROzqjeh (MEDROL, PETERSON,) 4 MG tablet Take by mouth. 1 kit 0 12/24/2023 12/30/2023 Active2 ml metoclopramide 5 mg/ml prefilled syringe (1 source)Dopamine-2 Receptor AntagonistStart: 12-10-2021 End: 42-64-1387meekvmmjfgpunv (REGLAN) injection 10 mgmontelukast 10 mg oral tablet (20 sources)Leukotriene Receptor AntagonistStart: 62-68-1948ieul 1 tablet by mouth once daily at bedtimemontelukast (SINGULAIR) 10 MG tablet TAKE 1 TABLET BY MOUTH EVERYDAY AT BEDTIME 90 tablet 1 10/24/2024 ActiveStart: 17-60-2042ckpc 1 tablet by mouth once daily at bedtimemontelukast (SINGULAIR) 10 MG tablet TAKE 1 TABLET BY MOUTH EVERYDAY AT BEDTIME 90 tablet 1 02/03/2024 ActiveStart: 80-77-3819anyd 1 tablet by mouth once daily at bedtimemontelukast (SINGULAIR) 10 MG tablet TAKE 1 TABLET BY MOUTH EVERYDAY AT BEDTIME 90 tablet 1 11/02/2023 ActiveStart: 60-07-8165helh 1 tablet by mouth once daily at bedtimemontelukast (SINGULAIR) 10 MG tablet TAKE 1 TABLET BY MOUTH EVERYDAY AT BEDTIME 90 tablet 1 03/31/2022 ActiveMultiple Vitamin (multivitamin) tablet (3 sources)take 1 tablet by mouth once dailyMultiple Vitamin (multivitamin) tablet Take 1 tablet by mouth daily. 0 Activenabumetone 500 mg oral tablet (2 sources)Nonsteroidal Anti-inflammatory DrugStart: 58-92-8482afab 1 tablet by mouth twice daily as needed for painnabumetone (RELAFEN) 500 MG tablet Take by mouth nabumetone 500 mg oral tablet (1 source) Nonsteroidal Anti-inflammatory Drug Start: 11-08-2024 take 1 tablet by mouth twice daily as needed for pain Activenaproxen 500 mg oral tablet (15 sources)Nonsteroidal Anti-inflammatory DrugStart: 01-31-2870mmst 1 tablet by mouth twice daily at mealtimenaproxen (NAPROSYN) 500 MG tablet Take 1 tablet by mouth 2 times daily (with meals) 180 tablet 1 12/24/2023 ActiveStart: 17-54-3241brsh 1 tablet by mouth twice daily after mealtimenaproxen (NAPROSYN) 500 MG tablet TAKE 1 TABLET BY MOUTH TWICE DAILY AFTER MEAL 0 01/17/2020 Active Start: 09-11-2019 End: 76-55-6534rcwk 1 tablet by mouth twice dailynaproxen (NAPROSYN) 500 MG tablet Take 1 tablet by mouth 2 times daily 60 tablet 0 09/11/2019 12/20/2019 Discontinued (LIST CLEANUP)Naproxen Sodium (ALEVE) 220 MG CAPS Take by mouth 0 Activeondansetron (ZOFRAN-ODT) disintegrating tablet 4 mg (2 sources)Start: 03-40-6697aqbjgyaeyen (ZOFRAN-ODT) disintegrating tablet 4 mg Start: 57-51-1874nvwczgwizsf (ZOFRAN-ODT) disintegrating tablet 4 mgoxyCODONE hydrochloride 5 mg oral tablet (2 sources)Opioid AgonistStart: 09-08-2022 End: 1975ktgs 1 tablet by mouth every six hours as needed for pain oxyCODONE (ROXICODONE) 5 MG immediate release tablet Indications: Postoperative state Take 1 tabletby mouth every 6 hours as needed for Pain for up to 5 days. Intended supply: 5 days. Take lowest dose possible to manage pain Max Daily Amount: 20 mg 20 tablet 0 09/08/2022 09/13/2022 ActiveStart: 66-23-2544dabCFTLPD (ROXICODONE) immediate release tablet 5 mgpantoprazole 40 mg delayed release oral tablet (20 sources)Proton Pump InhibitorStart: 86-65-2545lbfd 1 tablet by mouth twice dailypantoprazole (PROTONIX) 40 MG tablet TAKE 1 TABLET BY MOUTH TWICE A DAY 180 tablet 1 10/24/2024 ActiveStart: 10-24-0633txdk 1 tablet by mouth twice daily pantoprazole (PROTONIX) 40 MG tablet TAKE 1 TABLET BY MOUTH TWICE A DAY 180 tablet 1 05/01/2024 ActiveStart: 58-23-7753turf 1 tablet by mouth twice daily pantoprazole (PROTONIX) 40 MG tablet TAKE 1 TABLET BY MOUTH TWICE A DAY 180 tablet 1 11/08/2023 ActiveStart: 01-90-2124qixt 1 tablet by mouth twice daily pantoprazole (PROTONIX) 40 MG tablet TAKE 1 TABLET BY MOUTH TWICE A DAY 180 tablet 1 02/20/2022 ActiveStart: 81-79-3767jezt 1 tablet by mouth twice daily pantoprazole (PROTONIX) 40 MG tablet TAKE 1 TABLET BY MOUTH TWICE DAILY 180 tablet 1 09/18/2021 ActiveStart: 18-49-4343zhnh 1 tablet by mouth twice daily pantoprazole (PROTONIX) 40 MG tablet TAKE 1 TABLET BY MOUTH TWICE DAILY 180 tablet 1 04/02/2021 ActiveStart: 78-14-1031wzfk 40 mg by mouth once daily Pantoprazole Active 40 MG PO Daily December 19, 2020 12:00amStart: 45-88-2435sndi 1 tablet by mouth twice dailypantoprazole (PROTONIX) 40 MG tablet TAKE 1 TABLET BY MOUTH TWICE DAILY 180 tablet 1 10/07/2020 ActiveStart: 27-71-7227yqro 1 tablet by mouth twice dailypantoprazole (PROTONIX) 40 MG tablet TAKE 1 TABLET BY MOUTH TWICE DAILY FOR 30 DAYS 0 01/23/2020 ActiveStart: 13-19-3235uekl 1 tablet by mouth twice dailypantoprazole (PROTONIX) 20 MG tablet 1 po bid 180 tablet 1 09/11/2019 ActiveStart: 57-17-8313iqxr 2 tablets by mouth once daily before breakfastpantoprazole (PROTONIX) 20 MG tablet Indications: Gastroesophageal reflux disease, esophagitis presence not specified take 2 tablets by mouth every morning before breakfast 180 tablet 1 01/25/2019 ActivePARoxetine hydrochloride 30 mg oral tablet (20 sources)Serotonin Reuptake InhibitorStart: 67-78-2684seti 1 tablet by mouth once daily in the morningPARoxetine (PAXIL) 30 MG tablet Indications: Anxiety and depression TAKE 1 TABLET BY MOUTH EVERY DAY IN THE MORNING 90 tablet 1 11/06/2024 ActiveStart: 65-42-7897cxxw 1 tablet by mouth once daily in the morningPARoxetine (PAXIL) 30 MG tablet Indications: Anxiety and depression TAKE 1 TABLET BY MOUTH EVERY DAY IN THE MORNING 90 tablet 1 05/05/2024 ActiveStart: 69-90-1268ibzk 1 tablet by mouth once daily in the morningPARoxetine (PAXIL) 30 MG tablet Indications: Anxiety and depression TAKE 1 TABLET BY MOUTH EVERY DAY IN THE MORNING 90 tablet 1 11/08/2023 ActiveStart: 66-02-0358goyp 30 mg by mouth once daily in the wxpcihn93 mg, Oral, EVERY MORNING, First dose on Wed09/09/22 at 0900, Until Discontinued, Post-opStart: 63-48-7968kxtx 1 tablet by mouth once daily in the morningPARoxetine (PAXIL) 30 MG tablet Indications: Anxiety and depression TAKE 1 TABLET BY MOUTH EVERY DAY IN THE MORNING 90 tablet 1 02/20/2022 ActiveStart: 36-25-8979pufn 1 tablet by mouth once daily in the morningPARoxetine (PAXIL) 30 MG tablet Indications: Anxiety and depression Take 1 tablet by mouth every morning 90 tablet 1 09/18/2021 ActiveStart: 04-01-2020 take 1 tablet by mouth once daily in the morningPARoxetine (PAXIL) 30 MG tablet Indications: Anxiety and depression Take 1 tablet by mouth every morning 90 tablet 1 04/01/2020 ActiveStart: 61-58-1364nneg 1 tablet by mouth once daily in the morningPARoxetine (PAXIL) 30 MG tablet Indications: Anxiety and depression Take 1 tablet by mouth every morning 90 tablet 1 09/11/2019 ActiveStart: 68-05-1516jyvy 1 tablet by mouth once daily in the morningPARoxetine (PAXIL) 40 MG tablet Indications: Anxiety and depression take 1 tablet by mouth every mor tayler 90 tablet 1 02/27/2019 Activetake 1.5 tablets by mouth once daily in the morningPARoxetine 20 MG tablet Take 1.5 tablets by mouth daily. 30 mg am Active phentermine hydrochloride 37.5 mg oral tablet (1 source)Sympathomimetic Amine AnorecticStart: 05-21-2021 End: 40-62-7640zfxg 1 tablet by mouth once daily before breakfastphentermine (ADIPEX-P) 37.5 MG tablet Indications: Morbid obesity due to excess calories (HCC) Take1 tablet by mouth every morning (before breakfast) for 30 days. 30 tablet 0 05/21/2021 06/20/2021 ActivepredniSONE 50 mg oral tablet (4 sources)Start: 12-21-2021 End: 16-61-8981nhvn 1 tablet by mouth in the morningpredniSONE (DELTASONE) 50 MG tablet Take 1 tablet by mouth in the morning for 4 days. 4 tablet 0 12/21/2021 12/25/2021 ActiveStart: 12-20-2021 End: 70-55-2267zxuapwHZJH (DELTASONE) tablet 50 mgStart: 78-94-4784wmmz 2 tablets by mouth once daily at mealtimepredniSONE (DELTASONE) 20 MG tablet Indications: Acute bronchitis, unspecified organism Take 2 tablets by mouth daily x 3 days. Take with food. 6 tablet 0 03/18/2019 Activeprogesterone 100 mg oral capsule (20 sources)ProgesteroneStart: 01-05-2024 End: 46-02-8718cdaq 1 capsule by mouth once dailyprogesterone (PROMETRIUM) 100 MG CAPS capsule Indications: Endometriosis , Artificial menopause Take 1 capsule by mouth daily 90 capsule 3 01/05/2024 01/05/2025 ActiveStart: 20-97-1821nuvq 1 capsule by mouth once dailyprogesterone (PROMETRIUM) 100 MG CAPS capsule Indications: Endometriosis , Artificial menopause Take 1 capsule by mouth daily 30 capsule 0 11/04/2023 Activesimethicone 80 mg chewable tablet (3 sources)Start: 31-29-2883abqu 1 tablet by mouth four times daily as needed simethicone (MYLICON) 80 MG chewable tablet Take 1 tablet by mouth 4 times daily as needed for Flatulence 90 tablet 0 09/08/2022 ActiveStart: 06-38-8022kafh 80 mg by mouth every six hours as lgaxos59 mg, Oral, EVERY 6 HOURS PRN, Starting on Wed09/08/22 at 1254, Until Discontinued, Cramping, Post-optopiramate 50 mg oral tablet (4 sources)Start: 53-99-7594fkqg 1 tablet by mouth once dailytopiramate (TOPAMAX) 50 MG tablet 50 mg po nightly 90 tablet 1 11/17/2024 ActiveStart: 57-10-1955tals 1 tablet by mouth once daily, then take 2 tablets by mouth once dailytopiramate (TOPAMAX) 25 MG tablet 25 mg po nightly for 2 wks then 50 mg po nightly 60 tablet 3 07/19/2024 ActivetraMADol hydrochloride 50 mg oral tablet (4 sources)Opioid AgonistStart: 12-10-2021 End: 85-48-6286ouuGKHgf (ULTRAM) tablet 50 mgturmeric extract 500 mg oral capsule (20 sources)Turmeric (QC Tumeric Complex) 500 MG capsule Take by mouth. 0 Active take 1 capsule by mouth once dailyturmeric 500 MG CAPS Take by mouth daily 0 Activeturmeric (QC TUMERIC COMPLEX) 500 MG CAPS Take by mouth daily 0 Active verapamil hydrochloride 240 mg extended release oral tablet (20 sources)Calcium Channel BlockerStart: 13-59-6634xypg 1 tablet by mouth once dailyverapamil (CALAN SR) 240 MG extended release tablet TAKE 1 TABLET BY MOUTH EVERY DAY 90 tablet 1 10/24/2024 ActiveStart: 12-90-5241srax 1 tablet by mouth once dailyverapamil (CALAN SR) 240 MG extended release tablet TAKE 1 TABLET BY MOUTH EVERY DAY 90 tablet 1 02/03/2024 ActiveStart: 82-29-7901jczk 1 tablet by mouth once dailyverapamil (CALAN SR) 240 MG extended release tablet TAKE 1 TABLET BY MOUTH EVERY DAY 90 tablet 1 11/02/2023 ActiveStart: 28-03-1594tqtl 1 tablet by mouth once dailyverapamil (CALAN SR) 240 MG extended release tablet TAKE 1 TABLET BY MOUTH EVERY DAY 90 tablet 1 02/20/2022 ActiveStart: 01-09-2019 take 1 capsule by mouth once daily in the eveningverapamil (VERELAN) 240 MG extended release capsule Indications: Essential hypertension, benign take 1 capsule by mouth every evening 90 capsule 1 01/09/2019 Active Completed/Discontinued Medications MedicationDrug Class(es)DatesSig (Normalized)Sig (Original)barium sulfate 60 % suspension 355 mL (1 source)Start: 05-18-2019 End: 33-59-4709rtvxrf sulfate 60 % suspension 355 mLbarium sulfate 700 mg tablet (1 source)Start: 05-18-2019 End: 91-67-8248cfztzz sulfate 700 mg tabletbarium sulfate 98 % suspension 140 mL (1 source)Start: 05-18-2019 End: 33-68-4660ncummo sulfate 98 % suspension 140 mLBlood Glucose Monitoring Suppl (FREESTYLE LITE) CHAS (5 sources)Start: 03-31-2019 End: 70-73-4164Gadlc Glucose Monitoring Suppl (FREESTYLE LITE) CHAS CHECK BLOOD SUGAR every morning FASTING 0 03/31/2019 12/20/2019 Discontinued (LIST CLEANUP) Start: 63-54-5138Lkzwd Glucose Monitoring Suppl (FREESTYLE LITE) CHAS CHECK BLOOD SUGAR every morning FASTING 0 03/31/2019 Activebupivacaine hydrochloride 5 mg/ml injectable solution (10 sources)Amide Local AnestheticStart: 08-02-2023 End: 22-41-0989STGuapfrtcf (MARCAINE) 0.5 % injection 1 mLStart: 08-02-2023 End: mL, Intra-articular, ONCE NEEDED, 1 dose, Starting on Wed08/02/23 at 1030, Until Wed08/02/23 at 1030Start: 12-15-2022 End: 70-50-9120xjhmjfbuqth (MARCAINE) 0.5 % injection 1 mLStart: 10-23-2022 End: 71-30-4668iihuvqmesdg (MARCAINE) 0.5 % injection 1 mLStart: 08-14-2022 End: 33-96-0386jwtenjvmttx (MARCAINE) 0.5 % injection 1 mLStart: 06-23-2022 End: 36-91-7501isbpuhlvoiu (MARCAINE) 0.5 % injection 1 mLcalcium carbonate 500 mg chewable tablet (1 source)Start: 21-53-3332sxdt 1000 mg by mouth three times daily as needed 1,000 mg, Oral, 3 TIMES DAILY PRN, Starting on Wed09/08/22 at 1254, Until Discontinued, Heartburn, Post-op1 ml dexamethasone phosphate 4 mg/ml injection (9 sources)CorticosteroidStart: 08-02-2023 End: 20-74-1193vmyDPDHTeajti (DECADRON) injection 4 mgStart: 08-02-2023 End: 44 mg, Intra-articular, ONCE NEEDED, 1 dose, Starting on Wed08/02/23 at 1030, Until Wed08/02/23 at 1030Start: 12-15-2022 End: 61-17-9651zovTYHLGesycp (DECADRON) injection 4 mgStart: 10-23-2022 End: 61-86-7179dtrKBISHyuull (DECADRON) injection 4 mgStart: 06-23-2022 End: 24-31-0153jygXEEDIctfme (DECADRON) injection 4 mgStart: 12-20-2019 End: 88-72-9670smxydrhkuhidf (PF) (DECADRON) injection 10 mgdimenhyDRINATE 50 mg oral tablet (1 source)Start: 12-10-2021 End: 85-29-5511xixvlgmNOQPCXN (DRAMAMINE) tablet 50 mgdocusate sodium 50 mg / sennosides, fpc 8.6 mg oral tablet (3 sources)Start: 05-04-3333qbwb 2 tablets by mouth twice daily2 tablet, Oral, 2 times daily, First dose on Wed09/08/22 at 2100, Until Discontinued, Post-op Start: 12-54-2140zmgt 1 tablet by mouth once dailysennosides-docusate sodium (SENOKOT-S) 8.6-50 MG tablet Take 1 tablet by mouth daily 30 tablet 0 09/08/2022 Active0.4 ml enoxaparin sodium 100 mg/ml prefilled syringe (1 source)Low Molecular Weight HeparinStart: 81-10-3730uaurgy 40 mg by subcutaneous injection twice daily40 mg, SubCUTAneous, 2 times daily, First dose on Wed09/09/22 at 0900, Until Discontinued Indication of Use: Prophylaxis- DVT/PE Pharmacy to dose if renal insufficiency present. Post-op2 ml fentaNYL 0.05 mg/ml injection (1 source)Opioid AgonistStart: 12-10-2021 End: 40-92-7972eaqbcGHC (SUBLIMAZE) injection 50 mcgfluticasone propionate 0.05 mg/actuat metered dose nasal spray (6 sources)CorticosteroidStart: 01-31-2019 End: 03-48-4725jmiz 2 spray(s) nasal route once dailyfluticasone (FLONASE) 50 MCG/ACT nasal spray 2 sprays by Each Nostril route daily 1 Bottle 0 01/31/2019 05/18/2019 Discontinued (LIST CLEANUP)gentamicin (GARAMYCIN) 500 mg in dextrose 5 % 250 mL IVPB (1 source)Start: 12-10-2021 End: 91-35-6631ypzcisomgr (GARAMYCIN) 500 mg in dextrose 5 % 250 mL IVPBglucagon (rdna) 1 mg injection (1 source)Antihypoglycemic AgentStart: 37-50-8427xnhxdm 1 mg by subcutaneous injection every hour as needed1 mg, SubCUTAneous, PRN, Starting on Wed09/08/22 at 1254, Until Discontinued, Low blood sugar, Blood glucose LESS THAN 70 mg/dL and patient NOT ALERT or NPO and does not have IV access. After administration, attempt intravenous access and start dextrose 10% at 100 mL/hr. Repeat blood glucose in 15 minutes x 2 and notify provider. Post-op1 ml HYDROmorphone hydrochloride 1 mg/ml cartridge (2 sources)Opioid AgonistStart: 09-08-2022 End: 04-76-3256LCWOGtopgdpiy (DILAUDID) 1 MG/ML injectionStart: 09-08-2022 End: 60-74-6468KWPVZzmedyibu (DILAUDID) injection 0.5 mginsulin lispro 100 unt/ml injectable solution (2 sources)Insulin AnalogStart: -4 Units, SubCUTAneous, NIGHTLY, First dose on Wed09/08/22 at 2100, Until Discontinued If continuous tube feedings/TPN/NPO, give correction dose based on result, no reduction in dose. If eating or bolus tube feeding: Corrective Bedtime Algorithm Glucose: Dose: 70-299 No Insulin 300-349 4 Units Over 349 4 Units and notify physician Post-opStart: -8 Units, SubCUTAneous, 3 TIMES DAILY WITH MEALS, First dose on Wed09/08/22 at 1315, Until Discontinued Medium Dose Corrective Algorithm Glucose: Dose: 70-199 No Insulin 200-249 2 Units 250-299 4 Units 300- 349 6 Units Over 349 8 Units and notify physician Post-opiopamidol (ISOVUE- 370) 76 % injection 75 mL (1 source)Start: 09-23-2022 End: 03-53-4899hernwqurm (ISOVUE-370) 76 % injection 75 mL1 ml ketorolac tromethamine 30 mg/ml cartridge (13 sources)Nonsteroidal Anti-inflammatory Drug, Cyclooxygenase InhibitorStart: 12-24-2023 End: 75-94-4675xoonwigch (TORADOL) injection 30 mgStart: 09-08-2022 End: 01-47-422296 mg, IntraVENous, EVERY 6 HOURS, 3 doses, First dose on Wed09/08/22 at 1215, Last dose on Wed09/09/22 at 0015 Do not administer for more than 5 days. Post-opStart: 07-30-2022 End: 43-15-8988zdcl 1 tablet by mouth every six hours as needed for pain ketorolac (TORADOL) 10 MG tablet Indications: Left ovarian cyst Take 1 tablet by mouth every 6 hours as needed for Pain 20 tablet 0 07/30/2022 09/07/2022 Discontinued (LIST CLEANUP)Start: 12-10-2021 End: 65-47-5487jqfjdtuid (TORADOL) injection 30 mgStart: 12-20-2019 End: 68-99-4955cqfbukgmz (TORADOL) injection 30 mg10 ml lidocaine hydrochloride 10 mg/ml injection (10 sources)Antiarrhythmic, Amide Local AnestheticStart: 08-02-2023 End: 00-53-4184Blpltidgu (XYLOCAINE) 10 mg/mL injection 4 mLStart: 08-02-2023 End: mL, Intra-articular, ONCE NEEDED, 1 dose, Starting on Wed08/02/23 at 1030, Until Wed08/02/23 at 1030Start: 12-15-2022 End: 73-91-7731Fgevjoxow (XYLOCAINE) 10 mg/mL injection 4 mLStart: 10-23-2022 End: 32-96-3493Ordwnygkr (XYLOCAINE) 10 mg/mL injection 1 mLStart: 08-14-2022 End: 02-73-0317Kgwwyfdev (XYLOCAINE) 10 mg/mL injection 4 mLStart: 06-23-2022 End: 90-13-9177Oihcnztsg (XYLOCAINE) 10 mg/mL injection 1 mLmagnesium hydroxide 80 mg/ml oral suspension (1 source)Start: 40-97-0323muqb 30 mL by mouth once daily30 mL, Oral, DAILY, First dose on Wed09/09/22 at 0900, Until Discontinued, Post-opmelatonin 1 mg oral tablet (20 sources)Start: 61-69-8501eihg 3 mg by mouth once daily as needed3 mg, Oral, NIGHTLY PRN, Starting on Wed09/08/22 at 2100, Until Discontinued, Sleep, Post-op take 3 capsules by mouth once dailyMelatonin 1 MG CAPS Take 3 mg by mouth nightly Activenorethindrone 0.35 mg oral tablet (20 sources)Start: 11-28-2021 End: 13-07-6433pdop 1 tablet by mouth once dailynorethindrone (MICRONOR) 0.35 MG tablet Indications: Secondary dysmenorrhea Take 1 tablet by mouth daily 28 tablet 1 11/28/2021 12/10/2021 Discontinued (Stop Taking at Discharge)Start: 14-05-8048usyybtjgnrbsn (MICRONOR) 0.35 MG tabletStart: 52-17-7424tazb 1 tablet by mouth once dailySHAROBEL 0.35 MG tablet Take 1 tablet by mouth daily 0 07/23/2016 Activeondansetron 4 mg oral tablet (20 sources)Serotonin-3 Receptor AntagonistStart: 11-18-2023 End: 09-91-3954dxpl 1 tablet by mouth three times daily as needed for nausea ondansetron (ZOFRAN) 4 MG tablet Take 1 tablet by mouth 3 times daily as needed for Nausea or Vomiting 30 tablet 1 11/18/2023 05/12/2024 Discontinued (LIST CLEANUP)Start: 07-02-2023 End: 47-55-0033Cxcvcyrqvam 4mg/2ml (ZOFRAN) injection 4 mgStart: 02-11-2023 End: 94-37-5315Etyjvfajovj 4mg/2ml (ZOFRAN) injection 4 mgStart: 07-95-4639hmci 1 tablet by mouth every eight hours as needed for nauseaondansetron (ZOFRAN) 4 MG tablet Take 1 tablet by mouth every 8 hours as needed for Nausea or Vomiting 30 tablet 0 09/08/2022 ActiveStart: 48-61-1572auen 1 tablet by mouth every eight hours as needed for nauseaondansetron (ZOFRAN) 4 MG tablet Take 1 tablet by mouth every 8 hours as needed for Nausea or Vomiting 20 tablet 0 04/07/2022 ActiveStart: 12-10-2021 End: 19-20-2844vwtxqtvnchv (ZOFRAN) injection 4 mgStart: 15-62-2566ddsoxnpzgar (ZOFRAN) injection 4 mg2 ml orphenadrine citrate 30 mg/ml injection (1 source)Muscle RelaxantStart: 12-20-2019 End: 56-07-3282ybuajimyxnxw (NORFLEX) injection 30 mg2 ml prochlorperazine 5 mg/ml injection (1 source)PhenothiazineStart: 90-12-788561 mg, IntraVENous, EVERY 6 HOURS PRN, Starting on Wed09/08/22 at 1254, Until Discontinued, Nausea If administering IV push, administer at a maximum rate of 5 mg/minute. Post-opsodium bicard-citric acid-simethicone (EZ GAS II) packet 1 each (1 source)Start: 05-18-2019 End: 19-24-2228heukfm bicard-citric acid-simethicone (EZ GAS II) packet 1 each20 ml sodium chloride 9 mg/ml injection (20 sources)Start: 08-02-2023 End: 07-87-7360Xdlfkn chloride (PF) 0.9 % injection 5 mLStart: 08-02-2023 End: mL, Intra-articular, ONCE NEEDED, 1 dose, Starting on Wed08/02/23 at 1030, Until Wed08/02/23 at 1030Start: 07-02-2023 End: 61-73-9235Uianbb chloride 0.9% IV solutionStart: 02-11-2023 End: 98-89-5661Imdaah chloride 0.9% IV solution 1,000 mLStart: 12-15-2022 End: 18-19-4585Zpymlc chloride (PF) 0.9 % injection 5 mLStart: 68-03-6561qsai 1 dose intravenously twice daily5-40 mL, IntraVENous, EVERY 12 HOURS SCHEDULED (2 times per day), First dose on Wed09/08/22 at 2100, Until Discontinued For Line Patency: Peripheral IV = 5 mL; Midline or Central Line = 10 mL/lumen.&a mp;nbsp; If following IV push medication, administer flush at same rate as the IV push. Flush volume is determined by type of infusion therapy being given. For non-viscoussolutions use: Peripheral IV = 5 mL Midline or Central Line = 10 mL/lumen For viscous solutions (i.e. blood components, parenteral nutrition, contrast media, or after obtaining blood sample) use: Peripheral IV = 10 mL Midline or Central Line = 20 mL/lumen Post-opStart: 86-08-5151CwdxiVIDiqb, at 5-250 mL/hr, PRN, if patient receiving piggyback infusions and maintenance fluids are not ordered OR KVO fluids to protect IV site / prevent frequent line interruptions/ long duration, Starting on Wed09/08/22 at 1254 For piggyback infusion, administer at same rate as piggyback for atotal of 25 mL. Enter 25 mL into dose field and piggyback rate into rate field of order. If piggyback is infusing at a rate less than 100 mL/hr, enter 25 mL into dose field and 100 mL/hr into rate field of order. For KVO fluids, enter rate of 20 mL/hr or less into rate field of order. Post-opStart: 36-65-4775vfvg 5-40 mL intravenously once as needed5-40 mL, IntraVENous, PRN, Starting on Wed09/08/22 at [...] Midline or Central Line = 20 mL/lumen Post-opStart: 09-08-2022 End: 95-97-4096EmiliJJGpfx, at 125 mL/hr, CONTINUOUS, Starting on Wed09/08/22 at 1315, Post-opStart: 08-14-2022 End: 58-94-2135Musboa chloride (PF) 0.9 % injection 5 mLStart: 97-30-0777hgmlmx chloride flush 0.9 % injection 5-40 mLStart: 80-95-0803tteatr chloride flush 0.9 % injection 5-40 mLStart: .9 % sodium chloride infusionStart: 54-24-9487spouwb chloride flush 0.9 % injection 5-40 mLStart: 38-23-7248bpznbk chloride flush 0.9 % injection 10 mLStart: 58-98-6606fzbtlh chloride flush 0.9 % injection 10 mLStart: 70-33-7392ufgqsg chloride flush 0.9 % injection 10 mL Start: 31-49-4412acdlak chloride flush 0.9 % injection 10 mLsucralfate 1000 mg oral tablet (7 sources)Aluminum ComplexStart: 09-11-2019 End: 51-85-5813nnez 1 tablet by mouth four times dailysucralfate (CARAFATE) 1 GM tablet Take 1 tablet by mouth 4 times daily 120 tablet 3 09/11/2019 03/07/2020 Discontinued (Therapy completed)Start: 42-40-3065kjjt 1 tablet by mouth four times dailysucralfate (CARAFATE) 1 GM tablet Take 1 tablet by mouth 4 times daily 120 tablet 3 05/15/2019 ActiveStart: 05-15-2019 End: 51-90-4383rpib 10 mL by mouth four times dailysucralfate (CARAFATE) 1 GM/10ML suspension Take 10 mLs by mouth 4 times daily 420 mL 1 05/15/2019 Discontinued (LIST CLEANUP)traZODone hydrochloride 50 mg oral tablet (9 sources)Serotonin Reuptake InhibitorStart: 06-12-2019 End: 60-11-8886edmi 1 tablet by mouth once daily in the eveningtraZODone (DESYREL) 50 MG tablet Indications: Anxiety and depression take 1 tablet by mouth every evening 90 tablet 1 06/12/2019 03/07/2020 DiscontinuedStart: 53-33-1942ewoo 1 tablet by mouth once daily in the eveningtraZODone (DESYREL) 50 MG tablet Indications: Anxiety and depression take 1 tablet by mouth every ev ening 90 tablet 1 12/16/2018 Active1 ml triamcinolone acetonide 40 mg/ml injection (11 sources)CorticosteroidStart: 05-12-2024 End: 34-78-2865zcgoqs 1 dose by intramuscular injection once80 mg, IntraMUSCular, ONCE, 1 dose, On Wed05/12/24 at 1530Start: 08-02-2023 End: 25-59-1045fahphojdpawkr (KENALOG-40) injection 2 mLStart: 08-02-2023 End: mL, Intra-articular, ONCE NEEDED, 1 dose, Starting on Wed08/02/23 at 1030, Until Wed08/02/23 at 1030Start: 12-15-2022 End: 78-01-5850mpzfjsitljkkd (KENALOG-40) injection 2 mLStart: 10-23-2022 End: 16-07-8759daakbkirqqyst (KENALOG-40) injection 2 mLStart: 08-14-2022 End: 55-56-9321glqwwuxosgaao (KENALOG-40) injection 2 mLStart: 06-23-2022 End: 76-67-6855kitmjdoqdziuh (KENALOG-40) injection 80 mg Problems Active Problems Problem ClassificationProblemDateDocumented DateEpisodic/ChronicAcute bronchitis (1 source)Acute bronchitis; Translations: [Acute bronchitis, unspecified organism]EpisodicAnxiety disorders (20 sources)Mixed anxiety and depressive disorder; Translations: [Anxiety disorder, unspecified]Onset: 367859-11-5470UqydmucFakuboapqmy and hemorrhagic disorders (2 sources)Spontaneous ecchymoses; Translations: [Spontaneous ecchymoses]Onset: 24-94-5309LeszbjauUogqvchlnfwwy of surgical procedures or medical care (1 source)Postoperative complication; 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]EpisodicDeficiency and other anemia (1 source)Hemoglobin low; Translations: [Decreased hemoglobin]ChronicDeficiency and other anemia (3 sources)Iron deficiency anemia due to blood loss; Translations: [Iron deficiency anemia secondary to blood loss (chronic)]ChronicDiabetes mellitus without complication (20 sources)Type 2 diabetes mellitus without complication; Translations: [Type 2 diabetes mellitus without complications]Onset: 620804-76-3521Pardtpr Diabetes mellitus without complication (1 source)Prediabetes; Translations: [Prediabetes]EpisodicE Codes: Adverse effects of medical drugs (1 source)Adverse reaction to drug; Translations: [Adverse effect of unspecified drugs, medicaments and biological substances, initial encounter]Episodic Endometriosis (20 sources)Endometriosis (clinical); Translations: [Endometriosis, unspecified] Onset: 552358-45-4820JqroyjcJtssgjpnzk disorders (20 sources)Gastroesophageal reflux disease; Translations: [Gastro-esophageal reflux disease without esophagitis]Onset: 472219-67-4969RzwbwkyPukphwwyt hypertension (20 sources)Benign essential hypertension; Translations: [Essential (primary) hypertension]Onset: 348508-23-4507ZrgjosmDvywmvvloimvo and screening for infectious disease (2 sources)Suspected disease caused by 2019-nCoV; Translations: [Suspected COVID-19 virus infection]EpisodicMenstrual disorders (20 sources)Dysmenorrhea; Translations: [Dysmenorrhea, unspecified]Chronic Osteoarthritis (3 sources)Osteoarthritis of right knee joint; Translations: [Osteoarthritis of right knee]68-63-1035Jabeq aftercare (4 sources)Encounter for surgical aftercare following surgery on the circulatory system; Translations: [ENC SURG AFTRCARE FLW SURG CIRC SYS]Onset: 03-12-2021 EpisodicOther connective tissue disease (1 source)Trochanteric bursitis; Translations: [Trochanteric bursitis, right hip]87-32-7789AcqymcxhRpjyl nervous system disorders (3 sources)Chronic pain syndrome; Translations: [Chronic pain syndrome]Onset: 475643-16-4959ZtaujugHsvru nervous system disorders (2 sources)Chronic pain syndrome; Translations: [Chronic pain syndrome]Onset: 28-88-2884WoipqslShtva nervous system disorders (2 sources)Other acute postprocedural pain; Translations: [Other acute postprocedural pain]Onset: 00-37-6880PsmlcmjwIjcij non-traumatic joint disorders (20 sources)Arthritis of left knee; Translations: [Unilateral primary osteoarthritis, left knee]Onset: 035640-85-3654RstdbhhNzorr non-traumatic joint disorders (4 sources)Pain in right ankle and joints of right foot; Translations: [PAIN IN RIGHT ANKLE]Onset: 29-65-2106AxopaqsjWeszn non-traumatic joint disorders (2 sources)Pain in unspecified hip; Translations: [Pain in unspecified hip] Onset: 29-76-4819CirxmrxoCuwkg non-traumatic joint disorders (1 source)Hip pain; Translations: [Pain in left hip]24-30-0247TxqwpzcgFwshn non- traumatic joint disorders (1 source)Pain of right shoulder joint; Translations: [Pain in right shoulder] 84-39-4761OchwzivoFwllh non-traumatic joint disorders (3 sources)Pain in right shoulder; Translations: [Pain in right shoulder]Onset: 54-51-3656VjncswmfRtiyf non-traumatic joint disorders (15 sources)Arthritis of left knee; Translations: [Arthritis of left knee]Onset: Other nutritional; endocrine; and metabolic disorders (13 sources)Morbid obesity; Translations: [Morbid (severe) obesity due to excess calories]Onset: 443582-88-5755YimbvjhJwgql nutritional; endocrine; and metabolic disorders (2 sources)Morbid (severe) obesity with alveolar hypoventilation; Translations: [Morbid (severe) obesity with alveolar hypoventilation]Onset: 48-79-1269Roberxy Other nutritional; endocrine; and metabolic disorders (2 sources)Body mass index (BMI) 50.0-59.9, adult; Translations: [Body mass index (BMI) 50.0-59.9, adult]Onset: 93-61-7261XptbwbsJaqnn nutritional; endocrine; and metabolic disorders (1 source)Weight gain; Translations: [Weight gain]EpisodicOther skin disorders (20 sources)H/O: skin recipient; 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]Onset: 023437-29-6848XqjzxlxKbddt skin disorders (20 sources)Postoperative state; 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]Onset: 900252-54-3200LujdklrLfgyk skin disorders (2 sources)Eruption; Translations: [Rash and other nonspecific skin eruption] EpisodicOther upper respiratory infections (1 source)Viral upper respiratory tract infection; Translations: [Viral URI with cough]EpisodicOvarian cyst (1 source)Cyst of left ovary; Translations: [Unspecified ovarian cyst, left side]EpisodicPhlebitis; thrombophlebitis and thromboembolism (5 sources)Phlebitis and thrombophlebitis of superficial vessels of left lower extremity; Translations: [Phlebitis and thrombophlebitis of superficial vessels of right lower extremity]Onset: 20-34-7077IrdkyqdiOrlotkzyv (except that caused by tuberculosis or sexually transmitted disease) (1 source)Infective pneumonia; Translations: [Pneumonia, unspecified organism] EpisodicResidual codes; unclassified (4 sources)Localized edema; Translations: [LOCALIZED EDEMA]Onset: 01-23-2021 EpisodicResidual codes; unclassified (2 sources)Patient encounter status; Translations: [Encounter for procedure for purposes other than remedying health state, unspecified]90-96-9954Gqqbnsxl Residual codes; unclassified (2 sources)Pain, unspecified; Translations: [Pain, unspecified]Onset: 12-14-2024 EpisodicSpondylosis; intervertebral disc disorders; other back problems (10 sources)Bilateral osteoarthritis of sacroiliac joints; Translations: [Sacroiliitis, not elsewhere classified]Onset: 44-20-5819RpsrpwwVarqlfsqrwod (2 sources)Patient encounter status; Translations: [Screening for cardiovascular condition]Unclassified (20 sources)Body mass index 40+ - severely obese; Translations: [Adult body mass index 40 and over]Onset: 908985-36-4629Lvvpdfjkcuee (1 source)Post endometrial ablation syndrome; 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]Onset: 93-36-9488Cmmzyscafkcr (2 sources)Post-op; Translations: [Post-op]Onset: 12-25-2024 Past or Other Problems Problem ClassificationProblemDateDocumented DateEpisodic/ChronicAbdominal hernia (20 sources)Hiatal hernia; Translations: [Diaphragmatic hernia without obstruction or gangrene]Onset: 613886-44-9935YoymmeplXyvxjoame pain (2 sources)Pain in female pelvis; Translations: [Pelvic and perineal pain]Onset: 28-28-5485IkrcxhaxNijkyamh reactions (20 sources)Allergic disposition; Translations: [Allergy status to unspecified drugs, medicaments and biological substances status]Onset: EpisodicChronic ulcer of skin (20 sources)Skin ulcer; Translations: [Ankle ulcer]Onset: 01-23-2013 Resolved: 577206-67-2380EynpoquI Codes: Fall (2 sources)Accidental fall ; Translations: [Unspecified fall, initial encounter] Onset: 751993-15-6328KhgchxqpFlhde acquired deformities (2 sources)Varus deformity, not elsewhere classified, right knee; Translations: [Varus deformity, not elsewhere classified, right knee]Onset: 64-01-8106Tqmfhxvu Other acquired deformities (2 sources)Varus deformity, not elsewhere classified, left knee; Translations: [Varus deformity, not elsewhereclassified, left knee]Onset: 18-23-5580Rbdamran Other connective tissue disease (20 sources)Fibromyalgia; Translations: [Fibromyalgia]Onset: 05-13-2022 52-70-8283IzlricaqEfqwm connective tissue disease (1 source)Trochanteric bursitis, right hip; Translations: [Trochanteric bursitis, right hip]Onset: 11-45-6726NimwnaiuJkgsw diseases of veins and lymphatics (20 sources)Peripheral venous insufficiency; Translations: [Venous insufficiency (chronic) (peripheral)]Onset: 751133-95-2182RprhcdycKnzhz gastrointestinal disorders (20 sources)Pelvic mass; Translations: [Intra-abdominal and pelvic swelling, mass and lump, unspecified site]Onset: 09-08-2022 Resolved: 94-77-8110CtlgzvxbLymkl non-traumatic joint disorders (2 sources)Pain in right hip joint; Translations: [Pain in right hip]Onset: 660921-56-5031XrdqntzxIrseq non-traumatic joint disorders (2 sources)Pain in left knee; Translations: [Pain in joint, lower leg]Onset: 025024-92-4484DexqkfxhLoigj non-traumatic joint disorders (1 source)Pain in right hip; Translations: [Pain in right hip]Onset: 08-10-2023 EpisodicOther screening for suspected conditions (not mental disorders or infectious disease) (1 source)Encounter for screening mammogram for malignant neoplasm of breast; Translations: [Encounter for screening mammogram for malignant neoplasm of breast]Onset: 40-78-2192UwewsarsLodyp skin disorders (1 source)Rash and other nonspecific skin eruption; Translations: [Rash and other nonspecific skin eruption]Onset: 81-31-9710JgexfepjEbxjhskw codes; unclassified (20 sources)FH: Thrombosis; Translations: [Family history of ischemic heart disease and other diseases of the circulatory system]Onset: 10-29-2021 Resolved: 487005-65-4655JeqfgznkQuepscuh codes; unclassified (20 sources)Postoperative state; Translations: [Other specified postprocedural states]Onset: 51-74-8284RonkqvkqShotdema codes; unclassified (1 source)Other specified postprocedural states; Translations: [Other specified postprocedural states]Onset: 14-29-3381NdtboejcNropkothovd; intervertebral disc disorders; other back problems (20 sources)Acute back pain with sciatica; Translations: [Chronic low back pain] Onset: 99-53-9371IorndbxaWsrbxyny veins of lower extremity (20 sources)Skin ulcer; Translations: [Varicose veins of unspecified lower extremity with ulcer of unspecified site]Onset: 01-23-2013 Resolved: 068740-45-5124Gzjnnath Results Test NameValueInterpretationReference KjksjQxurzpak66oy 87-04-243425Xk called stating that she can feel her spinal cord stimulator zapping when she moves a certain way. I asked pt if she had reached out to the [employer] reps for possible adjustment. Pt stated that she did not, and that she wasn't sure who to call with this issue. I advised pt to contact [employer] to request an adjustment, and if the symptoms continue after adjustment, then to call our office to schedule a follow up with Dr. Sánchez. Pt verbalized understanding. [employer] reps will need to be notified.NormalGrand Lake Joint Township District Memorial HospitalOffice Visiton 14-59-0485Avsjni-up [id number] Sarah Harris 1975 F Date Provider Department Center 12/25/2024 HUNTER PANDEY [facility] SURG [place] [address] Family History Family history unknown: Yes Level of Service:51049 MD POSTOP FOLLOW UP VISIT RELATED TO ORIGINAL PX Reason for Visit and Comments: Post-op [483][facility] HospitalMRI TH[facility]ACIC SPINE WO CONTRASTon 46-28-1569RWG THORACIC SPINE WO CONTRASTEXAMINATION: MRI OF THE THORACIC SPINE WITHOUT CONTRAST [...] Signed by: Henok Marie MD 12/16/24 Final resultNoHumberto Green [facility] Centeron 21-76-9826KYF&P reviewed. The patient was examined and there are no changes to the H&P.[facility] HospitalOPNOTEon 65-26-6477DZZIXFQ3 Laminotomy for SCS Placement System Operative Note Date: 12/14/2024 Location: [facility] OR Name: Sarah Harris, : 1975, Diagnosis Pre-op Diagnosis * Chronic pain syndrome [G89.4] Post-op Diagnosis * Chronic pain syndrome [G89.4] Procedures T8 Laminotomy for SCS Placement System 34113 - MD WU IMPLTJ NSTIM ELTRDS PLATE/PADDLE EDRL T8 Laminotomy for SCS Placement System 43155 - MD INSJ/RPLCMT SPINAL NPG/RCVR POCKET CRTJ&CONNJ Surgeons Primary: Hunter Sánchez MD Procedure Summary Anesthesia: General ASA: ASA status not filed in the log. Estimated Blood Loss: 25 mL Drains: * None in log * Implants Type Name Action Serial No. Lead ARTISAN 50 CM 2X8 VENEER MATCHER KIT Implanted [id number] Device WAVEWRITER ALPHA 16 GENERATOR [id number] Implanted [id number] Staff: Operating Room Coordinator: Ministerio Mackey RN Relief Operating Room Coordinator: Melanie Goddard RN Scrub Person: Marycarmen Veliz CST Business Systems Consultant: Rufino Gonzalez CSA Indications: Sarah Harris is an 49 y.o. female who is having surgery for Chronic pain syndrome [G89.4]. She has a longstanding history of chronic back and proximal lower extremity despite surgical and nonsurgical therapies. She had recently undergone a trial of percutaneous [employer] spinal cord stimulation by her treating [...] laminotomy defect and directed cranially. A new [employer] Artisan spinal cord stimulation paddle type [...] position of the electrod (more content not included)...NormalUnCleveland Clinic Euclid HospitalOPNOTEDate: 12/14/2024 Location: [facility] OR Name: Sarah Harris, : 1975, Diagnosis Pre-op Diagnosis * Chronic pain syndrome [G89.4] Post-op Diagnosis * Chronic pain syndrome [G89.4] Procedures T8 Laminotomy for SCS Placement System 81587 - MD WU IMPLTJ NSTIM ELTRDS PLATE/PADDLE EDRL T8 Laminotomy for SCS Placement System 25328 - MD INSJ/RPLCMT SPINAL NPG/RCVR POCKET CRTJ&CONNJ Surgeons Primary: Hunter Sánchez MD Procedure Summary Anesthesia: General ASA: ASA status not filed in the log. Estimated Blood Loss: Minimal Drains: * None in log * Implants Type Name Action Serial No. Lead ARTISAN 50 CM 2X8 VENEER MATCHER KIT Implanted [id number] Device WAVEWRITER ALPHA 16 GENERATOR [id number] Implanted [id number] Staff: Operating Room Coordinator: Ministerio Mackey RN Relief Operating Room Coordinator: Melanie Goddard RN Scrub Person: Marycarmen Veliz [employer] Consultant: Rufino Gonzalez CSA Indications: Sarah Harris is [...] Attestation: I performed the procedure. Hunter Sánchez DukyddZbalcioojb of [facility] CenterPOCT GLUCOSE METER UNSOLICITED RESULTSon 93-93-3193Zfrzvvb [Mass/Vol]139 mg/gNJdnc77-999 [facility] Memorial HospitalComment on above:Order Comment: Waived Testing in the ED is performed under the ED CLIA certificate #[id number].Result Comment: [email or web address] By: #### [id number] #### [facility] ([facility]) [address] [place], [place] [address]Kajxjjo [Mass/Vol]104 mg/fCWcceef57-191LkgpnfwnojCleveland Clinic Euclid HospitalComment on above:Order Comment: Waived Testing in the ED is performed under the ED CLIA certificate #[id number].Result Comment: ltolles Performed By: #### [id number] #### [facility] ([facility]) [address] [place], [place] [address]Ikedbe Onlyon 83-84-6830Fjjvyg [id number] Sarah Harris 1975 F Provider Department Center 12/05/2024 Reza-[facility] Medical C Family History Family history unknown: YesNormalUniParma Community General Hospital36on 02-47-230471Gl scheduled for MRI on 12/11 at 9 AM. Will Call [facility] to have imaging pushed.NormalGrand Lake Joint Township District Memorial Hospital36Called and spoke with pt. I confirmed that order was sent to [facility] Green on 11/24/24 via fax with instructions to contact pt to schedule MRI prior to 12/14/24. I asked pt if she had tried contacting [facility] to schedule, she stated that she did not. I instructed pt to call [facility] to schedule and that I will be refaxing order. I also explained to pt that if MRI is scheduled for after 12/14, then surgery will need to be rescheduled. I provided pt with my direct extension and asked for her to call me if any issues. Pt verbalized understanding.[facility]36Pt called and left voicemail on 11/30/24 that [facility] Green has not called her to schedule her MRI. Pt scheduled for surgery on 12/14/24NoCritical access hospitalniParma Community General HospitalLetter (Out)on 45-56-4706Znjeme (Out)[id number] Sarah Harris 1975 F Date Provider Department Center 11/24/2024 None-None [facility] AUTH CO Medical C Family History Family history unknown: YesNormalUniversity [facility] Health Administration36on 81-40-254323Jg MSSA+. Discussed with pt. Pt has chlorhexidine allergy. Advised pt to wash daily starting 5 days prior to surgery with antibacterial liquid soap and water. Pt verbalized understanding. Pre op orders placed.NormalUnCleveland Clinic Euclid HospitalANTI C3 DATon 54-17-7373DFKY C3 DATNegativeNormalUniParma Community General HospitalComment on above:Performed By: #### [id number] #### [facility] ([facility]) [address] [place], [place] [address]IGBY IGG DATon 73-22-3743IJVO IGG DATNegativeNormalUniParma Community General HospitalComment on above:Performed By: #### [id number] #### [facility]OD [facility] ,ANTIBODY IDENTIFICATIONon 61-59-3619ETPJSYXS IDENTIFICATIONFYANormalUnCleveland Clinic Euclid HospitalComment on above:Performed By: #### [id number] #### [facility] BLOOD [facility] ,APTTon 16-47-1928CNJRITOAP PARTIAL THROMBOPLASTIN TIME IN PPP BY COAGULATION ASSAY27.9 SowfvzxHixzse49.0-35.0UnCleveland Clinic Euclid HospitalComment on above:Result Comment: Clinical significance of the APTT is questionable in the presence of heparin.Performed By: #### [id number] #### [facility] ([facility]) [address] [place], [place] [address]JGQIA METABOLIC PANELon 40-03-6569Kbfka gap [Moles/Vol]11 mmol/L Normal7-20UnCleveland Clinic Euclid HospitalComment on above:Performed By: #### [id number] #### [facility] ([facility]) [address] [place], [place] [address]Olmmcsc [Mass/Vol]8.9 mg/dLNormal8.6-10.3UnCleveland Clinic Euclid HospitalComment on above:Performed By: #### [id number] #### [facility] ([facility]) [address] [place] [address]Ndabckhx [Moles/Vol]104 mmol/HLwjxwc99-628HdhhohslazCleveland Clinic Euclid HospitalComment on above:Performed By: #### [id number] #### [facility] ([facility]) [address] [place] [address]OU5 [Moles/Vol]26 mmol/GKfldse64-38VgcpjqnnptCleveland Clinic Euclid HospitalComment on above:Performed By: #### [id number] #### [facility] ([facility]) [address] [place] [address]Rplubqbtwg [Mass/Vol]0.73 mg/dLNormal0.60-1.20UnCleveland Clinic Euclid HospitalComment on above:Performed By: #### [id number] #### [facility] ([facility]) [address] [place] [address]LBXXQRYWWQ FILTRATION RATE ML/MIN/1.73 SQ M.DQATKBVUF022.8 mL/min/1.73m*2Normal>60.0UnCleveland Clinic Euclid HospitalComment on above: Result Comment: The [facility]???s estimated glomerular filtration rate (eGFR) will no [...] potential consequences that do not disproportionately affect anyone group of individuals.Performed By: #### [id number] #### [facility] ([facility]) [address] [place] [address]Znrhshq [Mass/Vol]106 mg/bUBnzi33-484VqdrveuvgvCleveland Clinic Euclid HospitalComment on above:Performed By: #### [id number] #### [facility] ([facility]) [address] [place] [address]Wynrewdai [Moles/Vol]4.1 mmol/LNormal3.5-5.1UnCleveland Clinic Euclid HospitalComment on above:Performed By: #### [id number] #### [facility] ([facility]) [address] [place] [address]Nhesyx [Moles/Vol]137 mmol/PIluejs115-447NhpbenewouCleveland Clinic Euclid HospitalComment on above:Performed By: #### [id number] #### [facility] ([facility]) [address] [place] [address]Baee nitrogen [Mass/Vol]10 mg/dLNormal7-25UnCleveland Clinic Euclid HospitalComment on above:Performed By: #### [id number] #### [facility] ([facility]) [address] [place] [address]LTUK NITROGEN/CREATININE (MASS RATIO) IN SER/PLAS13.7Normal [facility] Memorial HospitalComment on above:Performed By: #### [id number] #### [facility] ([facility]) [address] [place] [address]QMB WITH AUTO DIFFERENTIALon 06-52-1976Xcnbnyknl (Bld) [#/Vol] 0.08 10*3/uLNormal0.00-0.20UnCleveland Clinic Euclid HospitalComment on above: Performed By: #### [id number] #### [facility] ([facility]) [address] [place] [address]Jipxvmxtc/100 WBC (Bld)0.7 %Normal0.0-1.0UnCleveland Clinic [facility]uclid HospitalComment on above:Performed By: #### [id number] #### [facility] ([facility]) [address] [place] [id number] (Bld) [#/Vol]0.62 10*3/uLHigh0.00-0.50UnCleveland Clinic Euclid HospitalComment on above:Performed By: #### [id number] #### [facility] ([facility]) [address] [place] [id number]/100 WBC (Bld)5.7 %Normal0.0-6.0UnCleveland Clinic Euclid HospitalComment on above:Performed By: #### [id number] #### [facility] ([facility]) [address] [place] [address]Vcfwrpcdjmb distribution width (RBC) [Ratio]15.4 %High11.5-15.0 [facility] HospitalComment on above:Performed By: #### [id number] #### [facility] ([facility]) [address] [place] [id number] MEAN CORPUSCULAR HEMOGLOBIN CONCENTRATION (G/DL) BY PRCINCLPS43.6 g/dLLow32.0-35.0UnCleveland Clinic Euclid HospitalComment on above:Performed By: #### [id number] #### [facility] ([facility]) [address] [place] [address]Elximftsku (Bld) [Volume fraction]38.6 %Vmoqwd12.0-45.0 [facility] HospitalComment on above:Performed By: #### [id number] #### [facility] ([facility]) [address] [place] [address]Infnwuoulr (Bld) [Mass/Vol]11.8 g/dLLow12.0-15.0[facility] HospitalComment on above:Performed By: #### [id number] #### [facility] ([facility]) [address] [place] [address]Ondjnxba granulocytes (Bld) [#/Vol]0.05 10*3/uLNormal0.00-0.20 [facility] HospitalComment on above:Performed By: #### [id number] #### [facility] ([facility]) [address] [place] [address]Jiahecmw granulocytes/100 WBC (Bld)0.5 %Normal0.0-1.0UnCleveland Clinic Euclid HospitalComment on above:Performed By: #### [id number] #### [facility] ([facility]) [address] [place] [address]Kmgxynywafm (Bld) [#/Vol]2.54 10*3/uLNormal1.20-4.00UnCleveland Clinic Euclid HospitalComment on above:Performed By: #### [id number] #### [facility] ([facility]) [address] [place], [place] [address]Oqmrwlqmkdm/100 WBC (Bld)23.2 %Ywylib51.0-45.0UnCleveland Clinic Euclid HospitalComment on above:Performed By: #### [id number] #### [facility] ([facility]) [address] [place], [place] [address]YIM (RBC) [Entitic mass]25.2 pgLow27.0-33.0UnCleveland Clinic Euclid HospitalComment on above:Performed By: #### [id number] #### [facility] ([facility]) [address] [facility] [place], [place] [address]HRE (RBC) [Entitic vol]82.3 hKFtlgsk13.0-98.0UnCleveland Clinic Euclid HospitalComment on above:Performed By: #### [id number] #### [facility] ([facility]) [address] [place], [place] [address]Megjmxikg (Bld) [#/Vol]0.67 10*3/uLNormal0.10-1.00UnCleveland Clinic Euclid HospitalComment on above:Performed By: #### [id number] #### [facility] ([facility]) [address] [place], [place] [address]Yjycdrnrq/100 WBC (Bld)6.1 %Normal5.0-12.0UnCleveland Clinic Euclid HospitalComment on above:Performed By: #### [id number] #### [facility] ([facility]) [address] [place], [place] [address]Bjpyumfqgdb (Bld) [#/Vol]6.99 10*3/uLNormal1.60-7.60UnCleveland Clinic Euclid HospitalComment on above:Performed By: #### [id number] #### [facility] ([facility]) [address] [place], [place] [address]Zxhkqpgnlgj/100 WBC (Bld)63.8 %Ulipwx12.0-72.0UnCleveland Clinic Euclid HospitalComment on above:Performed By: #### [id number] #### [facility] ([facility]) [address] [place] [id number] (PER 100 WBCS) BY AUTOMATED COUNT0.0 %Jmhjvz7IuwmnlkujhCleveland Clinic Euclid HospitalComment on above:Performed By: #### [id number] #### [facility] ([facility]) [address] [place] [id number] (10*3/UL) IN BLOOD AUTOMATED BOZGK047 10*3/uLNormal 150-400UnCleveland Clinic Euclid HospitalComment on above:Performed By: #### [id number] #### [facility] ([facility]) [address] [place] [address]USU (Bld) [#/Vol]4.69 10*6/uLNormal3.80-5.00UnCleveland Clinic Euclid HospitalComment on above:Performed By: #### [id number] #### [facility] ([facility]) [address] [place] [address]USG (Bld) [#/Vol]10.95 10*3/uLHigh4.00-10.60UnCleveland Clinic Euclid HospitalComment on above:Performed By: #### [id number] #### [facility] ([facility]) [address] [place] [address]Bpsqemfxf [id number] Sarah Harris 1975 F Date Provider Department Center 11/21/2024 [facility] SURG Second Fl Family History Family history unknown: Yes Level of Service:44298 MD OFFICE/OUTPATIENT NEW MODERATE MDM 45 MINUTES Reason for Visit and Comments: Consult [484]NormalGrand Lake Joint Township District Memorial HospitalHPon [id number] Neurosurgery Consult Chief Complaint: Chronic pain syndrome History of Present Illness: Sarah Harris is a 49 y.o. female who presents in kind referral from pain management in [facility] to discuss placement of a spinal cord [...] she had undergone a percutaneous trial of [employer] spinal cord stimulation by Dr. Rodriguez. [...] Resource Strain: Low Risk (02/04/2023) Received from [facility] Overall Financial Resource Strain (CARDIA) Difficulty of Paying Living Expenses: Not hard at all Food Insecurity: No Food Insecurity (07/19/2024) Received from [facility] Hunger Vital Sign Worried About Running Out of Food in the Last Year: Never true Ran Out of Food in the Last Year: Never true Transportation Needs: No Transportation Needs (07/19/2024) Received from [facility] PRAPARE - Transportation Lack of Transportation [...] Housing Stability: Low Risk (07/19/2024) Received from [facility] Housing Stability Vital Sign Unable to [...] 5.1 mmol/L Final (more content not included)... NormalUnCleveland Clinic Euclid HospitalLabon [id number] Sarah Harris 1975 F Date Provider Department Center 11/21/2024 2245-[facility] OPD LAB RESOURCE [facility] OPD [facility] C Family History Family history unknown: YesNormalUniversDoctors HospitalMRSA/MSSA DNA NASALon [id number] DNANegativeNormalNegativeUnCleveland Clinic Euclid HospitalComment on above:Order Comment: Testing methodology is an automated qualitative in vitro [...] A negative result does not preclude nasal colonization.Performed By: #### [id number] #### [facility] ([facility]) [address] [place], [place] [address]TIRU DNAPositiveAbnormalNegativeUnCleveland Clinic Euclid HospitalComment on above:Order Comment: Testing methodology is an automated qualitative in vitro [...] A negative result does not preclude nasal colonization.Performed By: #### [id number] #### [facility] ([facility]) [address] [place], [place] [address]IWZADAK-PBDca [id number] IN PPP BY COAGULATION ASSAY0.96 Normal0.90-1.10UnCleveland Clinic Euclid HospitalComment on above:Result Comment: ACCCP RECOMMENDED INR FOR WARFARIN THERAPY CONDITION INR PROPHYLAXIS OF VENOUS THROMBOSIS 2-3 (HIGH-RISK SURGERY) TREATMENT OF VENOUS THROMBOSIS 2-3 TREATMENT OF PULMONARY EMBOLISM 2-3 PREVENTION OF SYSTEMIC EMBOLISM: 2-3 ACUTE MYOCARDIAL INFARCTION TISSUE HEART VALVES VALVULAR HEART DISEASE ATRIAL FIBRILLATION RECURRENT SYSTEMIC EMBOLISM MECHANICAL HEART VALVE 2.5-3.5 FROM: ORAL ANTICOAGULANTS. MECHANISM OF ACTION, CLINICAL EFFECTIVENESS, AND OPTIMAL THERAPEUTIC RANGE. CHEST 1995;108:231S-246S.Performed By: #### [id number] #### [facility] ([facility]) [address] [place], [place] [address]IRFKQCDTVKJ TIME (PT) IN PPP BY COAGULATION ASSAY12.8 Seconds Wxwnbr43.3-14.8[facility] Memorial HospitalComment on above:Performed By: #### [id number] #### [facility] ([facility]) [address] [place], [place] [address]BVSU AND SCREENon [id number] SCREENPositiveNormalUniParma Community General HospitalComment on above:Performed By: #### [id number] #### [facility]LOOD [facility] ,ABO group Nom (Bld)ONormalUnCleveland Clinic Euclid HospitalComment on above: Performed By: #### [id number] #### [facility] ,RH TYPE IN BLOODPositiveNormalUniversDoctors HospitalComment on above:Performed By: #### [id number] #### [facility] ,Albumin/Creat Ratio, Urineon 09-55-0644Agjfnli,conc.[place] U40 mg/LHigh0-20[facility] HospitalComment on above:Performed By: #### URNMAB #### [employer] [address] [place] [address] [employer] Driver: Aramis Hoffmann MDAlbumin/Creat Ratio10 mcg/mg creatNormal0.0-25.0 [facility] HospitalComment on above:Performed By: #### URNMAB #### [facility] [address] [place] [address] [employer] Driver: Aramis Hoffmann MDCreatinine Conc.419.0 mg/xBHeuu77.0-217.0Galion HospitalComschoolcraft memorial hospital on above:Result Comment: Reference range defined for 1st morning urinePerformed By: #### URNMAB #### [address] [address] [employer] Truck Driver: Aramis Hoffmann MDAlbumin/Creatinine Ratio, Urineon 11-17-2024 Albumin DL <= 20 mg/L (U) [Mass/Vol]40 mg/LHigh0 - 20 mg/LBon Grant HospitalAlbumin/Creatinine DL <= 20 mg/L (U) [Ratio]10[facility] Creatinine (U) [Mass/Vol]419 mg/sEBxjy12.0 - 217.0 mg/dLBon Grant Hospital Comment on above:Reference range defined for 1st morning urineInterpretation and review of laboratory resultsAbnormalStonesprings Hospital CenterBon Grant HospitalPO Glucose Randomon 18-12-3486Bxaoahl [Mass/Vol]108 mg/hBDhex88-37 [facility] - TrumbullComment on above:Performed By: #### [id number] #### [facility] [address] [place] [address]NQ SHOULDER RIGHT (MIN 2 VIEWS)on [id number] SHOULDER RIGHT (MIN 2 VIEWS)EXAM: XR SHOULDER RIGHT (MIN 2 VIEWS) HISTORY: Pain, joint, shoulder, right. COMPARISON: None. IMPRESSION: FINDINGS/IMPRESSION: 1. Minimal degenerative narrowing acromioclavicular and glenohumeral joint, not unusual for age. 2. No acute or suspicious findings. 3. Negative for calcific bursitis. 4. Right upper chest negative. Interpreted by: Jairo Mcdonald Jr., MD Signed by: Jairo Mcdonald Jr., MD 08/28/24 Final resultNoThe Surgical Hospital at SouthwoodsXR Shoulder - right 2 Viewson 08-28-2024 FINDINGS/IMPRESSION: 1. Minimal degenerative narrowing acromioclavicular and glenohumeral joint, not unusual for age. 2. No acute or suspicious findings. 3. Negative for calcific bursitis. 4. Right upper chest negative. [facility] CONSOLIDATEDEXAM: XR SHOULDER RIGHT (MIN 2 VIEWS) HISTORY: Pain, joint, shoulder, right. COMPARISON: None. [facility] Jairo Dumont Jr., MD - 08/28/2024 EXAM: XR SHOULDER RIGHT (MIN 2 VIEWS) HISTORY: Pain, joint, shoulder, right. COMPARISON: None. IMPRESSION: FINDINGS/IMPRESSION: 1. Minimal degenerative narrowing acromioclavicular and glenohumeral joint, not unusual for age. 2. No acute or suspicious findings. 3. Negative for calcific bursitis. 4. Right upper chest negative. [facility] [employer] PharmaceuticalsRadiology Study observation (narrative)[facility] [employer] PharmaceuticalsXR Shoulder - right 2 ViewsOrdered By: Jairo Mcdonald on [id number] [employer] Work Phone: XR KNEE LEFT (MIN 4 VIEWS)on [id number] KNEE LEFT (MIN 4 VIEWS)EXAM: XR KNEE LEFT (MIN 4 VIEWS) 06/18/2024 HISTORY: pain , no specific trauma/fall, Hx OA right knee COMPARISON: 09/25/2020 TECHNIQUE: Weightbearing AP view of bilateral knees, oblique view and lateral of the left knee and a sunrise view of left patella FINDINGS: There is advanced degenerative disease involving bilateral medial femoral tibial compartments with ttwg-nn-lkiq articulation and subarticular sclerosis with prominent spurring. [...] Signed by: Billy Chavez MD 06/18/24 Final resultNormalGalion HospitalXR Knee - left 4 Viewson 06-18-2024 Advanced degenerative disease of the medial femoral tibial compartment of the knee and patellofemoral compartment without an acute osseous abnormality demonstrated. [facility] CONSOLIDATEDEXAM: XR KNEE LEFT (MIN 4 VIEWS) 06/18/2024 HISTORY: pain , no specific trauma/fall, Hx OA right knee COMPARISON: 09/25/2020 TECHNIQUE: Weightbearing AP view of bilateral knees, oblique view and lateral of the left knee and a sunrise view of left patella FINDINGS: There is advanced degenerative disease involving bilateral medial femoral tibial compartments with ivvl-yo-wpsc articulation and subarticular sclerosis with prominent spurring. This results in a bilateral genu varum. There is also advanced degenerative disease of the left patellofemoral compartment with prominent spurring. No acute fracture is identified. No significant joint effusion is evident. [facility] Billy Milner MD - 06/18/2024 EXAM: XR KNEE LEFT (MIN 4 VIEWS) 06/18/2024 HISTORY: pain , no specific trauma/fall, Hx OA right knee COMPARISON: 09/25/2020 TECHNIQUE: Weightbearing AP view of bilateral knees, oblique view and lateral of the left knee and a sunrise view of left patella FINDINGS: There is advanced degenerative disease involving bilateral medial femoral tibial compartments with gfef-xl-uclw articulation and subarticular sclerosis with prominent spurring. This results in a bilateral genu varum. There is also advanced degenerative disease of the left patellofemoral compartment with prominent spurring. No acute fracture is identified. No significant joint effusion is evident. IMPRESSION: Advanced degenerative disease of the medial femoral tibial compartment of the knee and patellofemoral compartment without an acute osseous abnormality demonstrated. [facility] CenterRadiology Study observation (narrative)[facility] CenterXR Knee - left 4 ViewsOrdered By: Billy Chavez on 39-07-8583[facility] Level Work Phone: XR HIP 2-3 VW W PELVIS RIGHTon [id number] HIP 2-3 VW W PELVIS RIGHTEXAM: XR HIP 2-3 VW W PELVIS RIGHT [...] by: Jairo Mcdonald Jr., MD 05/30/24 Final resultNormalGalion HospitalXR Pelvis and Hip - right 2 Viewson [id number]/IMPRESSION: 1. 3 screw fusion left SI joint is intact, unchanged. 2. Mild symmetric degenerative change at the SI joints. 3. Minimal symmetric degenerative change the hips with well rounded femoral heads. 4. Prior laminectomy and fusion with bilateral fusion masses and pedicle screws L5-S1. 5. No right hip fracture, lytic or blastic lesion. [facility] RIS CONSOLIDATEDEXAM: XR HIP 2-3 VW W PELVIS RIGHT HISTORY: fall 05/24, continued right hip/trochanter area pain COMPARISON: None. [facility] CONSOLIDATEDJairo Mcdonald Jr., MD - 05/30/2024 EXAM: XR [...] right hip fracture, lytic or blastic lesion. [facility] CenterRadiology Study observation (narrative)[facility] Pelvis and Hip - right 2 ViewsOrdered By: Jairo Mcdonald on 05-30-2024 [facility] Level Work Phone: mam NANO DIGITAL SCREEN BILATERALon [id number] NANO DIGITAL SCREEN BILATERALEXAMINATION: SCREENING DIGITAL BILATERAL MAMMOGRAM WITH TOMOSYNTHESIS, 03/17/2024 [...] to the patient regarding the results. The [employer] recommends annual mammograms for women 40 years and older. Performing Facility: [place] [id number] Interpreted by: Carlitos Brown DO Signed by: Carlitos Brown DO 03/20/24 Final resultNormalMerNatchaug HospitalFollow-Upon [id number] Sarah Harris 1975 F Date Provider Department Center 02/14/2024 [facility]YNN [facility] Family History Family history unknown: Yes Level of Service:50567 MD OFFICE/OUTPATIENT ESTABLISHED MOD MDM 30 MIN () Reason for Visit and Comments: Follow-up [983482] - surgical evaluation - bone on bone, when she walks feels like her knees are crunching. Pain [136] - surgical evaluation - bone on bone, when she walksfeels like her knees are crunching. New Patient [632] - surgical evaluation - bone on bone, when she walks feels like her knees are crunching.NormalUnCleveland Clinic Euclid HospitalComp Metabolic Profon [id number] [Mass/Vol]3.9 g/dLNormal3.5-5.2[facility] Mer[facility] Health MadisonComment on above:Performed By: #### GLYHGB, LIPR #### [facility] [employer] [address] [place], [place] [phone] [employer] Driver: Aramis Hoffmann MD #### CP #### [facility] [address] [place], [place] [phone] [employer] Driver: Crystal Jaimes Wjqk619 U/ZWlhz24-635BftfmGalion HospitalComschoolcraft memorial hospital on above:Performed By: #### NELY LIPR #### [place] [address] [place], [place] [phone] [employer] Driver: Aramis Hoffmann MD #### CP #### [facility] [address] [place], [place] [phone] [employer] Driver: Glenn Flores MDALT [Catalytic activity/Vol]15 U/LNormal5-33[facility] on above:Performed By: #### NELY LIPR #### [address] [id number] [employer] Driver: Aramis Hoffmann MD #### CP #### [facility] [address] [place] [phone] [employer] Driver: Emilia Jaimes gap [Moles/Vol]15 mmol/LNormal9-17Galion HospitalComschoolcraft memorial hospital on above:Performed By: #### NELY LIPR #### [address] [address] [employer] Driver: Aramis Hoffmann MD #### CP #### [facility] [address] [place] [address] [employer] Team [employer] Driver: Glenn Flores MDAST [Catalytic activity/Vol]17 U/LNormal<32[facility] on above:Performed By: #### NELY, LIPR #### [address] [address] [employer] Driver: Aramis Hoffmann MD #### CP #### [facility] [address] [place], [place] [phone] [employer] Driver: Glenn Sturtz, MDBilirubin [Mass/Vol]0.3 mg/dLNormal0.3-1.2MUniversity Hospitals Ahuja Medical CenterComment on above:Performed By: #### GLYHGB, LIPR #### [address] [address] [employer] Driver: Aramis Hoffmann MD #### CP #### [facility] [address] [place], [place] [address] [employer] Driver: Glenn Flores MDBUN/CRE Hgfvs51Ioggpy8-12Cvpcr [facility] Comment on above:Performed By: #### GLYHGB, LIPR #### [address] [address] [employer] Driver: Aramis Hoffmann MD #### CP #### [facility] [address] [place] [phone] [employer] Driver: SURJIT Jaimesalcium [Mass/Vol]9.7 mg/dLNormal8.6-10.4Gal[facility] HospitalComment on above:Performed By: #### GLYHGMartine, LIPR #### [address] [address] [employer] Driver: Aramis Hoffmann MD #### CP #### [facility] [address] [place], [place] 12[address] [employer] Driver: SURJIT Jaimeshloride [Moles/Vol]97 mmol/NUlu81-796LqskbGalion HospitalComment on above:Performed By: #### GLYHGB, LIPR #### [address] [address] [employer] Driver: Aramis Hoffmann MD #### CP #### [facility] [address] [place], [place] [phone] [employer] Driver: SURJIT JaimesO2 [Moles/Vol]23 mmol/POzjota62-21UghneGalion HospitalComment on above:Performed By: #### GLYHGB, LIPR #### [facility] [employer] [address] [place], [place] [address] [employer] Driver: Aramis Hoffmann MD #### CP #### [facility] [address] [place], [place] [phone] [employer] Driver: SURJIT Jaimesreatinine [Mass/Vol]0.9 mg/dLNormal0.5-0.9[facility] on above:Performed By: #### GLYHGB, LIPR #### [facility] [address] [place], [place] [address] [employer] Driver: Aramis Hoffmann MD #### CP #### [facility] [address] [place] [address] [employer] Team [employer] Driver: Glenn Flores MDGFR/1.73 sq M.predicted among non-blacks MDRD (S/P/Bld) [Vol rate/Area]79 mL/min/{1.73_m2}Normal>60[facility] Comment on above:Result Comment: These results are not intended for [...] or following therapy that affects renal tubular secretion.Performed By: #### GLYHGB, LIPR #### [facility] [employer] [address] [place] [address] [employer] Driver: Aramis Hoffmann MD #### CP #### [facility] [address] [place], [place] [phone] [employer] Driver: Glenn Flores MDGlucose [Mass/Vol]111 mg/zORmei11-89YjnfyUniversity Hospitals Ahuja Medical CenterComschoolcraft memorial hospital on above:Performed By: #### GLYHGB, LIPR #### [facility] [address] [place] [address] [employer] Driver: Aramis Hoffmann MD #### CP #### [facility] [address] [place], [place] [phone] [employer] Team [employer] Driver: Glenn Flores MDPotassium [Moles/Vol]4.1 mmol/LNormal3.7-5.3MUniversity Hospitals Ahuja Medical CenterComment on above:Performed By: #### GLYHGB, LIPR #### [place] [address] [place] [address] [employer] Driver: Aramis Hoffmann MD #### CP #### [facility] [address] [place] [address] [employer] Driver: Glenn Flores MDProtein [Mass/Vol]7.6 g/dLNormal6.4-8.3MUniversity Hospitals Ahuja Medical CenterComment on above:Performed By: #### GLYHGB, LIPR #### [address] [address] [employer] Driver: Aramis Hoffmann MD #### CP #### [facility] [address] [place] [address] [employer] Driver: Glenn Flores MDSodium [Moles/Vol]135 mmol/XMyyuuc592-697XxilyGalion HospitalComment on above:Performed By: #### GLYHGB, LIPR #### [address] [address] [employer] Driver: Aramis Hoffmann MD #### CP #### [facility] [address] [place] [address] [employer]dl Team Truck Driver: Glenn Flores MDUrea nitrogen [Mass/Vol]9 mg/dLNormal6-20[facility] HospitalComment on above:Performed By: #### GLYHGB, LIPR #### [address] [address] [employer] Driver: Aramis Hoffmann MD #### CP #### [facility] [address] [place] [address] [employer]dl Team [employer] Driver: Glenn Flores MDHemoglobin A1Con 88-44-6953Byebluy [Mass/Vol]143 mg/dLNormalGalion HospitalComschoolcraft memorial hospital on above:Result Comment: The ADA and AACC recommend providing the estimated average glucose result to permit better patient understanding of their HBA1c result.Performed By: #### GLYHGB, LIPR #### [employer] [address] [place] [address] [employer]dl Team [employer] Driver: Aramis Hoffmann MD #### CP #### [facility] [address] [place] [address] [employer]dl Team [employer] Driver: Glenn Flores MDHbA1c (Bld) [Mass fraction]6.6 %High4.0-6.0Galion HospitalComment on above:Performed By: #### GLYHGB, LIPR #### [facility] [employer] [facility] [address] [place] [address] [employer] Team [employer] Driver: Aramis Hoffmann MD #### CP #### [facility] [address] [place] [address] [employer]dl Team [employer] Driver: Glenn Flores MDLipid Profileon 08-78-6212Tjctmpxpggj [Mass/Vol] 165 mg/dLNormal0-199Galion HospitalComschoolcraft memorial hospital on above:Result Comment: Cholesterol Guidelines: <200 Desirable 200-240 Borderline >240 UndesirablePerformed By: #### GLYHGB, LIPR #### [facility] [employer] [facility] [address] [place] [address] [employer] Team [employer] Driver: Aramis Hoffmann MD #### CP #### [facility] [address] [place], [place] [phone] [employer]dl Team Truck Driver: SURJIT Jaimesholesterol in HDL [Mass/Vol]40 mg/dLLow>40[facility] on above:Result Comment: HDL Guidelines: <40 Undesirable 40-59 Borderline >59 DesirablePerformed By: #### GLYHGB, LIPR #### [address] [address] [employer] Driver: Aramis Hoffmann MD #### CP #### [facility] [address] [place], [place] [id number] [employer]dl Team Truck Driver: SURJIT Jaimesholesterol in LDL [Mass/Vol]85 mg/dLNormal0-100 [facility] on above:Result Comment: LDL Guidelines: <100 Desirable 100-129 Near to/above Desirable 130-159 Borderline >159 Undesirable Direct (measured) LDL and calculated LDL are not interchangeable tests.Performed By: #### GLYHGB, LIPR #### [address] [address] [employer] Team Truck Driver: Aramis Hoffmann MD #### CP #### [facility] [address] [place], [place] [id number] Cdl Team Truck Driver: SURJIT Jaimesholesterol in VLDL [Mass/Vol]40 mg/dLNormalCleveland Clinic Medina Hospital on above:Performed By: #### GLYHGB, LIPR #### [address] [address] [employer]dl Team Truck Driver: Aramis Hoffmann MD #### CP #### [facility] [address] [place], [place] [id number] Cdl Team Truck Driver: Petrona Jaimesstdonnell.total/Cholesterol in HDL [Mass ratio] 4.0 {ratio}NormalGalion HospitalComschoolcraft memorial hospital on above:Performed By: #### GLYHGB, LIPR #### [address] [address] [employer]dl Team Truck Driver: Aramis Hoffmann MD #### CP #### [facility] [address] [place] [address] Cdl Team Truck Driver: Glenn Flores MDTriglyceride [Mass/Vol]202 mg/dLHigh<150Galion HospitalComment on above:Result Comment: Triglyceride Guidelines: <150 Desirable 150-199 Borderline 200-499 High >499 Very high Based on AHA Guidelines for fasting triglyceride, February 2012.Performed By: #### GLYHGB, LIPR #### [employer] [address] [place], [place] [address] Cdl Team Truck Driver: Aramis Hoffmann MD #### CP #### [facility] [address] [place] [address] Cdl Team Truck Driver: ARABELLA JaimesR KNEE RIGHT (3 VIEWS)on 50-31-1390KE KNEE RIGHT (3 VIEWS)EXAMINATION: THREE XRAY VIEWS OF THE RIGHT KNEE 12/24/2023 10:47 am COMPARISON: None. HISTORY: ORDERING SYSTEM PROVIDED HISTORY: injury TECHNOLOGIST PROVIDED HISTORY: injury FINDINGS: No acute fracture or dislocation is identified. Severe tricompartmental osteoarthritis. No joint effusion or erosion is present. IMPRESSION: 1. No acute fracture or dislocation. 2. Severe tricompartmental osteoarthritis. Interpreted by: Glenn Mendez MD Signed by: Glenn Mendez MD 12/24/23 Final resultNormalMerNatchaug HospitalXR Knee - right 3 Viewson . No acute fracture or dislocation. 2. Severe tricompartmental osteoarthritis. [facility] RIS CONSOLIDATEDEXAMINATION: THREE XRAY VIEWS OF THE RIGHT KNEE 12/24/2023 10:47 am COMPARISON: None. HISTORY: ORDERING SYSTEM PROVIDED HISTORY: injury TECHNOLOGIST PROVIDED HISTORY: injury FINDINGS: No acute fracture or dislocation is identified. Severe tricompartmental osteoarthritis. No joint effusion or erosion is present. [facility] RIS CONSOLIDATEDGlenn Mendez MD - 12/24/2023 EXAMINATION: THREE XRAY VIEWS OF THE RIGHT KNEE 12/24/2023 10:47 am COMPARISON: None. HISTORY: ORDERING SYSTEM PROVIDED HISTORY: injury TECHNOLOGIST PROVIDED HISTORY: injury FINDINGS: No acute fracture or dislocation is identified. Severe tricompartmental osteoarthritis. No joint effusion or erosion is present. IMPRESSION: 1. No acute fracture or dislocation. 2. Severe tricompartmental osteoarthritis. [facility] VoAPPs HEALTHRadiology Study observation (narrative)[facility] GENERAL HOSPITALNotifo [facility]ITALXR Knee - right 3 ViewsOrdered By: Glenn Mendez on 95-32-1652VKX [employer] Work Phone: ANION GAPon 83-72-3818Zevas gap [Moles/Vol]8.0 mmol/L Normal8.0-16.0Hemphill County HospitalComment on above:Result Comment: ANION GAP = Sodium -(Chloride + CO2)Performed By: #### KEKE, BMP, ANION, EGFR1 #### [facility] [address] [place] [address]HQSEU METABOL PANELon 07-79-8654Edqnudd [Mass/Vol]8.5 mg/dLNormal 8.5-10.5SBaylor Scott & White Medical Center – IrvingComment on above:Performed By: #### KEKE, BMP, ANION, EGFR1 #### [facility] [address] [place] [address]Cqoopwax [Moles/Vol]100 mmol/JNqjvzo96-334TaqqjHemphill County HospitalComment on above:Performed By: #### KEKE, BMP, ANION, EGFR1 #### [facility] [address] [place] [address] 39876JY4 [Moles/Vol]31 mmol/HWkprxv51-77LizjyHemphill County Hospital Comment on above:Performed By: #### HH, BMP, ANION, EGFR1 #### [facility] [address] [place] [address]34[address]Niqxfrrgwd [Mass/Vol]0.6 mg/dLNormal0.4-1.2SBaylor Scott & White Medical Center – IrvingComment on above:Performed By: #### HH, BMP, ANION, EGFR1 #### [facility] [address] [place], [place] [address]Pmqapvw [Mass/Vol]110 mg/fDKgyv04-583VwkswHemphill County Hospital Comment on above:Performed By: #### HH, BMP, ANION, EGFR1 #### [facility] [address] [place], [place] [address]Tpnbcqsbd [Moles/Vol]4.3 mmol/LNormal3.5-5.2SBaylor Scott & White Medical Center – IrvingComment on above:Performed By: #### HH, BMP, ANION, EGFR1 #### [facility] [address] [place] [address]Aiakbl [Moles/Vol]139 mmol/USzanak050-347LmqimHemphill County HospitalComment on above:Performed By: #### HH, BMP, ANION, EGFR1 #### [facility] [address] [place] [address] 534[address]Kvxz nitrogen [Mass/Vol]8 mg/dLNormal7-22Hemphill County HospitalComment on above:Performed By: #### KEKE, BMP, ANION, EGFR1 #### [employer] [facility] [address] [place] [address]ULB, ESTIMATEDon 90-15-1620NJI/1.73 sq M.predicted MDRD (S/P/Bld) [Vol rate/Area]mL/min/{1.73_m2}Normal>60Hemphill County HospitalComment on above:Result Comment: Pediatric calculator link https://www.kidney.org/professionals/kdoqi/gfr_calculatorped Effective Mar 02, 2022 [...] or following therapy that affects renal tubular secretion.Performed By: #### HH, BMP, ANION, EGFR1 #### [facility] [address] [place] [address]HBTHVXR POCon 89-90-3299Sfwnpfa [Mass/Vol]114 mg/bPYgtv49-306QsebsHemphill County HospitalComment on above:Performed By: #### POCGL #### [facility] [address] [place] [address]Jmckdqf [Mass/Vol]107 mg/vKJhbczk63-338RdttyHemphill County Hospital Comment on above:Performed By: #### POCGL #### [facility] [address] [place] [address]XWA,HCTon 55-43-3370Pisawcgzox (Bld) [Volume fraction]33.7 %Low 37.0-47.0Hemphill County HospitalComment on above:Performed By: #### HH, BMP, ANION, EGFR1 #### [facility] [address] [place] [address]Ulmkjkstky (Bld) [Mass/Vol]10.1 g/dLLow12.0-16.0Hemphill County HospitalComment on above:Performed By: #### HH, BMP, ANION, EGFR1 #### [address] [address]MITWR-XBYNTWR RCon 88-53-4470FM-1 LEUKOREDUCED RED CELLS [id number] [facility] - MorgantonComment on above: Performed By: #### POCGL #### [address] [address]GPOGR-RKGSONK RED CELLS BAG [id number] [facility] - MorgantonComment on above:Performed By: #### POCGL #### [address] [address]GUNSD GAPon 10-10-7292Rygjy gap [Moles/Vol]6.0 mmol/LLow8.0-16.0 Hemphill County HospitalComment on above:Result Comment: ANION GAP = Sodium - (Chloride + CO2)Performed By: #### MRSP #### [address] [address]ITAKT METABOL PANELon 61-42-8798Zgntczs [Mass/Vol]8.2 mg/dLLow 8.5-10.5SBaylor Scott & White Medical Center – IrvingComment on above:Performed By: #### MRSP #### [address] [address]Bfijigqk [Moles/Vol]103 mmol/HBmoaeh29-172SyszcHemphill County HospitalComment on above:Performed By: #### MRSP #### [facility] [address] [place] [address] 423[address]YH3 [Moles/Vol]28 mmol/TAjnhqq93-41FqcwgHemphill County Hospital Comment on above:Performed By: #### MRSP #### [facility] [address] [place] [address] 30[address]Xylloqwkwr [Mass/Vol]0.6 mg/dLNormal0.4-1.2SBaylor Scott & White Medical Center – IrvingComment on above:Performed By: #### MRSP #### [facility] [address] [place] [address]Rdzpkhe [Mass/Vol]121 mg/vPSdog90-316QkzpeHemphill County Hospital Comment on above:Performed By: #### MRSP #### [facility] [address] [place] [address]27[address]Ekyzwocvn [Moles/Vol]4.2 mmol/LNormal3.5-5.2SBaylor Scott & White Medical Center – IrvingComment on above:Performed By: #### MRSP #### [facility] [address] [place] [address] 469[address]Dxogmw [Moles/Vol]137 mmol/ASvktuk049-192WtvjyHemphill County HospitalComment on above:Performed By: #### MRSP #### [facility] [address] [place] [address]Yoop nitrogen [Mass/Vol]9 mg/dLNormal7-22Hemphill County HospitalComment on above:Performed By: #### MRSP #### [facility] [address] [place] [address]EKV, ESTIMATEDon 25-01-9510WTX/1.73 sq M.predicted MDRD (S/P/Bld) [Vol rate/Area]mL/min/{1.73_m2}Normal>60Hemphill County HospitalComment on above:Result Comment: Pediatric calculator link https://www.kidney.org/professionals/kdoqi/gfr_calculatorped Effective Mar 02, 2022 [...] or following therapy that affects renal tubular secretion.Performed By: #### MRSP #### [address] [address]TRUTYAH POCon 64-43-2624Uzmctrg [Mass/Vol]148 mg/aHCymo66-853ZpiidHemphill County HospitalComment on above:Performed By: #### MRSP #### [address] [address]Ikimlfj [Mass/Vol]145 mg/nJDqjo76-831OlwhlHemphill County Hospital Comment on above:Performed By: #### POCGL #### [address] [address]Ddotjmi [Mass/Vol]103 mg/fKSszkat89-215Agvnc[address] [place] [address] Comment on above:Performed By: #### POCGL #### [address] [address]Jcuomea [Mass/Vol]117 mg/gJFkeg22-206TakeaHemphill County Hospital Comment on above:Performed By: #### POCGL #### [address] [address]LSU,HCTon 17-73-9864Gvhlxnqxtc (Bld) [Volume fraction]33.5 %Low 37.0-47.0Hemphill County HospitalComment on above:Performed By: #### MRSP #### [address] [address]Yexdsrdqij (Bld) [Mass/Vol]9.8 g/dLLow12.0-16.0Hemphill County HospitalComment on above:Performed By: #### MRSP #### [address] [address]SJSWH GAPon 53-15-1536Wpmcx gap [Moles/Vol]11.0 mmol/LNormal 8.0-16.0Hemphill County HospitalComment on above:Result Comment: ANION GAP = Sodium -(Chloride + CO2)Performed By: #### POCGL #### [address] [address]WHOTK METABOL PANELon 94-08-9238Peukyov [Mass/Vol]7.9 mg/dLLow 8.5-10.5SBaylor Scott & White Medical Center – IrvingComment on above:Performed By: #### POCGL #### [address] [address]Yudqvxtq [Moles/Vol]101 mmol/EUmeoqq02-957DxxhwHemphill County HospitalComment on above:Performed By: #### POCGL #### [address] [address]PG6 [Moles/Vol]26 mmol/JTtryvj96-05XfbnhHemphill County Hospital Comment on above:Performed By: #### POCGL #### [address] [address]Lcvxmomaga [Mass/Vol]0.7 mg/dLNormal0.4-1.2SBaylor Scott & White Medical Center – IrvingComment on above:Performed By: #### POCGL #### [address] [address]Zjozuhn [Mass/Vol]176 mg/tBPhly22-642SotcsHemphill County Hospital Comment on above:Performed By: #### POCGL #### [address] [address]Mecjlyudb [Moles/Vol]4.2 mmol/LNormal3.5-5.2SBaylor Scott & White Medical Center – IrvingComment on above:Result Comment: Low level specimen hemolysis is present as indicated by the interference level index on the Mallorie analyzer. The reported K+ level may be falsely increased. If clinically warranted, recollection of the specimen is suggested.Performed By: #### POCGL #### [address] [address]Ohginr [Moles/Vol]138 mmol/LJsvibw946-251OxpqhHemphill County HospitalComment on above:Performed By: #### POCGL #### [address] [address]Bcpj nitrogen [Mass/Vol]7 mg/dLNormal7-Hemphill County HospitalComment on above:Performed By: #### POCGL #### [address] [address]XAC, ESTIMATEDon 39-97-0550XSQ/1.73 sq M.predicted MDRD (S/P/Bld) [Vol rate/Area]mL/min/{1.73_m2}Normal>60Hemphill County HospitalComment on above:Result Comment: Pediatric calculator link https://www.kidney.org/professionals/kdoqi/gfr_calculatorped Effective Mar 02, 2022 [...] or following therapy that affects renal tubular secretion.Performed By: #### POCGL #### [address] [address]ADTXUBL POCon 59-63-8913Mjtbnbc [Mass/Vol]153 mg/gPJlge88-400Uanuk14 Martinez StreetComment on above:Performed By: #### POCGL #### [address] [address]Liayvvy [Mass/Vol]115 mg/iBKsqq79-841YklmkHemphill County Hospital Comment on above:Performed By: #### POCGL #### [address] [address]Fismogq [Mass/Vol]117 mg/rBKmhs80-374QumnfHemphill County Hospital Comment on above:Performed By: #### POCGL #### [address] [address]Meqmvrk [Mass/Vol]169 mg/hQBzca26-765OwessHemphill County Hospital Comment on above:Performed By: #### MRSP #### [address] [address]AYF,HCTon 35-94-8267Pkqettmubz (Bld) [Volume fraction]36.8 %Low 37.0-47.0Hemphill County HospitalComment on above:Performed By: #### POCGL #### [address] [address]Tltrverrwk (Bld) [Mass/Vol]11.1 g/dLLow12.0-16.0Hemphill County HospitalComment on above:Performed By: #### POCGL #### [address] [address]VWQTMYYY IDENTIFICATIONon [id number] IDENTIFICATIONPOS, ANTI-Fya (Rahman)[facility] – LongviewComment on above:Performed By: #### POCGL #### [address] [address]AXCVFA FOR SURGICAL PROCEDURESon 74-50-0333JEUVYT FOR SURGICAL PROCEDURESRadiology exam is complete. No Radiologist dictation. Please follow up with ordering provider.[facility] – LongviewFYA ANTIGENon 39-32-6050PFS ANTIGENNegativeNormalSBaylor Scott & White Medical Center – IrvingComment on above: Result Comment: Previously: POS 10/19/23 11:48Performed By: #### POCGL #### [address] [address]MOIEDKW POCon 20-37-2426Rfhykgg [Mass/Vol]262 mg/fOUdsv79-107WjnzeHemphill County HospitalComment on above:Performed By: #### POCGL #### [address] [address]Eutwkda [Mass/Vol]169 mg/mHDagc06-316GbworHemphill County Hospital Comment on above:Performed By: #### POCGL #### [address] [address]Pfmuqzq [Mass/Vol]126 mg/oTCwnj96-080HzfrlHemphill County Hospital Comment on above:Performed By: #### MRSP #### [address] [address]GYSQ AND SCREEN CAPTUREon 21-47-9230QLIUBZQP CONNER CAPTURE PositiveCHRISTUS Good Shepherd Medical Center – LongviewComment on above:Performed By: #### POCGL #### [address] [address]CRT CAPTUREONoDallas Regional Medical CenterComment on above: Performed By: #### POCGL #### [address] [address]PR CAPTURE (2 D CLONES)PositiveCHRISTUS Good Shepherd Medical Center – Longview Comment on above:Performed By: #### POCGL #### [address] [address]WZEQT GAPon 87-32-8547Hbgpg gap [Moles/Vol]16.0 mmol/LNormal 8.0-16.0Hemphill County HospitalComment on above:Result Comment: ANION GAP = Sodium -(Chloride + CO2)Performed By: #### POCGL #### [address] [address]FRGYgi 48-69-4013bLVG Coag (Bld) [Time]34.5 cOuizqj83.0-38.0Hemphill County HospitalComment on above:Result Comment: Therapeutic Heparin Reference Range= 60-95 seconds (corresponds to 0.3 to 0.7 u/mL Anti-Xa factor activity)Performed By: #### POCGL #### [address] [address]BTIKQ METABOL PANELon 88-30-1635Vcnlibl [Mass/Vol]9.4 mg/dLNormal 8.5-10.5SBaylor Scott & White Medical Center – IrvingComment on above:Performed By: #### POCGL #### [facility] [address] [place] [address] 199[address]Bkamsdnr [Moles/Vol]100 mmol/YXkpvrr95-774ZzpxsHemphill County HospitalComment on above:Performed By: #### POCGL #### [facility] [employer] [address] [address]PH9 [Moles/Vol]24 mmol/WHawios79-89KickfHemphill County Hospital Comment on above:Performed By: #### POCGL #### [address] [address]Hlhyyyywgf [Mass/Vol]0.8 mg/dLNormal0.4-1.2SBaylor Scott & White Medical Center – IrvingComment on above:Performed By: #### POCGL #### [address] [address]Phiemdu [Mass/Vol]133 mg/xHCrvq99-872SxtjzHemphill County Hospital Comment on above:Performed By: #### POCGL #### [facility] [address] [place] [address]Xytoqmper [Moles/Vol]4.8 mmol/LNormal3.5-5.2SBaylor Scott & White Medical Center – IrvingComment on above:Performed By: #### POCGL #### [address] [address]Rxumej [Moles/Vol]140 mmol/RRoysbu221-085LqutxHemphill County HospitalComment on above:Performed By: #### POCGL #### [address] [address]Ayea nitrogen [Mass/Vol]12 mg/dLNormal7-22Hemphill County HospitalComment on above:Performed By: #### POCGL #### [address] [address]ZNJ NO DIFFERENTIALon 15-60-0077Iifksvwtrrd distribution width (RBC) [Ratio]15.3 %High11.5-14.5SBaylor Scott & White Medical Center – IrvingComment on above: Performed By: #### POCGL #### [address] [address]Snwwmqqkcs (Bld) [Volume fraction]43.3 %Jifffq03.0-47.0Hemphill County HospitalComment on above:Performed By: #### POCGL #### [address] [address]Kpsrmexrwr (Bld) [Mass/Vol]13.3 g/uLQjqlti53.0-16.0Hemphill County HospitalComment on above:Performed By: #### POCGL #### [address] [address]ZYT (RBC) [Entitic mass]26.3 niOqkblt72.0-33.0Hemphill County HospitalComment on above:Performed By: #### POCGL #### [address] [address]WLRO (RBC) [Mass/Vol]30.7 g/dLLow32.2-35.5SBaylor Scott & White Medical Center – IrvingComment on above:Performed By: #### POCGL #### [address] [address]INH (RBC) [Entitic vol]85.6 xHRqotao94.0-99.0Hemphill County HospitalComment on above:Performed By: #### POCGL #### [address] [address]AFNQQTFC215 thou/fs5Yacvfs124-353YqoulHemphill County Hospital Comment on above:Performed By: #### POCGL #### [address] [address]Lbiamyzm mean volume (Bld) [Entitic vol]10.1 fLNormal9.4-12.4SBaylor Scott & White Medical Center – IrvingComment on above:Performed By: #### POCGL #### [address] [address]KFC8.06 mill/jj7Ikzgtk6.20-5.40SBaylor Scott & White Medical Center – IrvingComment on above:Performed By: #### POCGL #### [address] [address]NCP-IV62.3 hGGdpn22.0-45.0Hemphill County HospitalComment on above:Performed By: #### POCGL #### [address] [address]UFJ94.5 thou/fm2Xdhp2.8-10.8Hemphill County HospitalComment on above:Performed By: #### POCGL #### [address] [address]FSO, ESTIMATEDon 37-19-2854LZY/1.73 sq M.predicted MDRD (S/P/Bld) [Vol rate/Area]mL/min/{1.73_m2}Normal>60Hemphill County HospitalComment on above:Result Comment: Pediatric calculator link https://www.kidney.org/professionals/kdoqi/gfr_calculatorped Effective Mar 02, 2022 [...] or following therapy that affects renal tubular secretion.Performed By: #### POCGL #### [facility] [address] [place] [address]SWFNRQCXWW A1Con 22-47-3699Vmxmrup [Mass/Vol]135 mg/wVSvsn81-129 [facility] County HospitalComment on above:Performed By: #### POCGL #### [facility] [address] [place] [address]67[address]HlW0i (Bld) [Mass fraction]6.5 %High4.4-6.4SBaylor Scott & White Medical Center – IrvingComment on above:Performed By: #### POCGL #### [facility] [address] [place] [address]78[address]HYXH BY PCRon 67-48-1414KMWN SCREEN RT-PCRNegativeNormalSBaylor Scott & White Medical Center – IrvingComment on above:Result Comment: No MRSA detected by Real Time - Polymerase Chain Reaction. Specimen Source: NaresPerformed By: #### MRSP #### [address] [address]MXOCEDMKTQ TIMEon 80-18-5645UAB Coag (Bld) [Relative time]0.98 {INR}Normal0.85-1.13Hemphill County HospitalComment on above:Result Comment: ---------INDICATION INR Reference Range DVT, PE, AF, AMI, tissue heart valve 2.0 to 3.0 Mechanical prosthetic valves 2.5 to 3.5Performed By: #### POCGL #### [facility] [address] [place], [place] [address] Lumbar spine WO contraston 47-08-9491NPODANPCBD: Very minimal degenerative changes of the lower lumbar discs with annular bulging not associated with canal, recess, or foramen stenosis L3-L4, L4-L5. Broad-based low-level right central disc protrusion at the lumbosacral level at least abutting the right ventral thecal sac. No canal, recess, or high-grade foraminal narrowing noted. Arthrodesis screw hardware with susceptibility artifacts present on the left at the sacroiliac joint. RADIOLOGYEXAM: MRI SPINE LUMBAR WITHOUT CONTRAST HISTORY: Right [...] visible included paraspinal soft tissues are unremarkable. Luciano Thompson DO - 08/10/2023 EXAM: MRI SPINE LUMBAR [...] on the left at the sacroiliac joint. [facility] HospitalRadiology Study observation (narrative)[facility] Lumbar spine WO contrastOrdered By: Luciano Alonso on 98-81-3476SdlzcTuCloset.com Work Phone: MR Pelvis WO contraston 43-50-7018CIXJYWRMUG: Moderate degenerative disc disease present with a disc bulge at L5-S1. Postsurgical changes are present to the left sacroiliac joint. No signs of hardware complications. No ligament or tendon tear. Mild degenerative joint disease present, with superficial chondromalacia. No osseous erosions. RADIOLOGYMRI PELVIS CLINICAL HISTORY: Pain COMPARISON: None TECHNIQUE: [...] cartilage: Moderate grade 1/2 chondromalacia is present. Johnathan Maldonado MD - 08/10/2023 MRI PELVIS CLINICAL HISTORY: [...] present, with superficial chondromalacia. No osseous erosions. [facility] HospitalRadiology Study observation (narrative)[facility] HospitalMR Pelvis WO contrastOrdered By: Johnathan Pham on 28-31-5377YyuucJ.W. Ruby Memorial Hospital Work Phone: MRI PELVIS WITHOUT CONTRASTon 32-42-1187XXK PELVIS WITHOUT CONTRASTMRI PELVIS CLINICAL HISTORY: Pain COMPARISON: None TECHNIQUE: [...] disease present, with superficial chondromalacia. No osseous erosions.[facility] MemorialMRI SPINE LUMBAR WITHOUT CONTRASTon 67-38-9623CEE SPINE LUMBAR WITHOUT CONTRASTEXAM: MRI SPINE LUMBAR WITHOUT CONTRAST HISTORY: Right [...] present on the left at the sacroiliac joint.NormalAvita Wabash HospitalLARGE JOINT/BURSA INJECTION AND/OR ASPIRATIONon 17-18-4681Dgwfem [employer] 08/02/2023 12:24 PM LARGE JOINT/BURSA INJECTION AND/OR [...] sterile fashion. The patient was prepped with Chloraprep.[facility] Radiology Study observation (narrative)[facility] Unspecified body regionon 05-28-8311[employer] This order is to facilitate the storage of the image.[facility]. Francis HospitalGLUCOSE (POC DEVICE)on 32-75-7982AXOZUXA, POINT OF YVEL301AocyXixbqACMC Healthcare System Glenbeigh Interpretation and review of laboratory resultsAbnoSelect Medical Specialty Hospital - [facility] Tmpljwzh517399MtmrhDoctors HospitalPOCT GLUCOSEon 07-02-2023 Glucose [Mass/Vol]127 mg/xPVwqj17-631LulbpEllinwood District HospitalEsoiunygYOBHLQRN796433Vhkymu [facility] HospitalXR Spine lumbosacral junction Viewson 03-01-2023 FINDINGS/IMPRESSION: Satisfactory alignment. Maintained vertebral body heights and disc spaces. Mild multilevel endplate degenerative changes and facet arthropathy of L3-S1. No acute fracture or subluxation. Left-sided sacroiliac fixation. Intact screws. RADIOLOGYEXAM: XR SPINE LUMBOSACRAL AP AND LATERAL HISTORY: Sacroiliitis COMPARISON: None. TECHNIQUE: 3 views Omero Hill MD - 03/01/2023 EXAM: XR SPINE LUMBOSACRAL AP AND LATERAL HISTORY: Sacroiliitis COMPARISON: None. TECHNIQUE: 3 views IMPRESSION FINDINGS/IMPRESSION: Satisfactory alignment. Maintained vertebral body heights and disc spaces. Mild multilevel endplate degenerative changes and facet arthropathy of L3-S1. No acute fracture or subluxation. Left-sided sacroiliac fixation. Intact screws. [facility] HospitalRadiology Study observation (narrative)St. Francis HospitalAcacia [facility] Hospital[facility] PointeXR Spine lumbosacral junction ViewsOrdered By: Omero Hernandez on 33-73-3154TdayoJ.W. Ruby Memorial Hospital Work Phone: GLUCOSE (POC DEVICE)on 48-65-0231SAKKWNH, POINT OF VQPQ407PhldMhghkACMC Healthcare System GlenbeighInterpretation and review of laboratory results AbnormalSt. Francis HospitalOpufckLfodlndd026399AjtxqDoctors Hospital LARGE JOINT/BURSA INJECTION AND/OR ASPIRATIONon 84-93-4459Bjpwegijx Study observation (narrative)[facility] Level [facility] PointeXR Lumbar spine Views W right bending and W left bendingon [id number]: Multilevel degenerative changes and disc disease as above. RADIOLOGYEXAM: XR SPINE LUMBAR W BENDING HISTORY: Vertebrogenic low back pain COMPARISON: None. TECHNIQUE: 5 views with flexion and extension FINDINGS: Satisfactory alignment. Maintained vertebral body heights. Maintained disc spaces. Multilevel endplate degenerative changes and facet arthropathy, most prominent at L4-S1. No acute fracture or subluxation. Unremarkable soft tissues. Omero Hill MD - 01/08/2023 EXAM: XR SPINE LUMBAR W BENDING HISTORY: Vertebrogenic low back pain COMPARISON: None. TECHNIQUE: 5 views with flexion and extension FINDINGS: Satisfactory alignment. Maintained vertebral body heights. Maintained disc spaces. Multilevel endplate degenerative changes and facet arthropathy, most prominent at L4-S1. No acute fracture or subluxation. Unremarkable soft tissues. IMPRESSION IMPRESSION: Multilevel degenerative changes and disc disease as above. [facility] HospitalRadiology Study observation (narrative)[facility] HospitalXR Lumbar spine Views W right bending and W left bendingOrdered By: Omero Hernandez on [id number].W. [facility] Work Phone: LARGE JOINT/BURSA INJECTION AND/OR ASPIRATIONon [id number] [employer] 01/09/2023 2:35 PM LARGE JOINT/BURSA INJECTION AND/OR [...] sterile fashion. The patient was prepped with Chloraprep.[facility] SystemUS Unspecified body regionon [id number] Storage This order is to facilitate the storage of the image.[facility]. [facility] HospitalLARGE JOINT/BURSA INJECTION AND/OR ASPIRATION: L greater trochanteric bursaon [id number] Study observation (narrative)[facility] HospitalLARGE JOINT/BURSA INJECTION AND/OR ASPIRATION: L greater trochanteric bursaon [id number] Matkellen 11/18/2022 11:07 AM LARGE JOINT/BURSA INJECTION AND/OR [...] sterile fashion. The patient was prepped with alcohol.[facility] HospitalCBC with Auto Differentialon [id number] Eos #0.34[facility] Absolute Immature Granulocyte0.05BON SECST. RITA'S HOSPITALAbsolute Lymph #1.70[facility] SYSTEMAbsolute Meeker #0.77BON SECST. RITA'S HOSPITALBasophils (Bld) [#/Vol]0.05 10*3/uLBON SECST. RITA'S HOSPITALBasophils/100 WBC (Bld)1 %0 - 2 %[facility] CENTEREosinophils/100 WBC (Bld)4 %1 - 4 %[facility] Hematocrit (Bld) [Volume fraction]39.1 %36.3 - 47.1 %[facility] Hemoglobin (Bld) [Mass/Vol]11.9 g/dL11.9 - 15.1 g/dLBON [facility] Immature granulocytes/100 WBC (Bld)1 %Ndsd8QFN [facility] Interpretation and review of laboratory resultsAbnormalB[facility] Lymphocytes/100 WBC (Bld)21 %Low24 - 43 %[facility]OSPITALH (RBC) [Entitic mass]26.6 pg25.2 - 33.[address] MARY[facility]S MEDICAL CENTERHC (RBC) [Mass/Vol] 30.4 g/dL28.4 - 34.8 g/dLBON ST. MARY'S MEDICAL CENTERV (RBC) [Entitic vol]87.3 fL 82.6 - 102.[address] FRANCIS MEDICAL CENTERMonocytes/100 WBC (Bld)9 %3 - 12 %[facility] MEDICAL CENTERNRBC Automated0.00.[address] [facility] Platelet distribution width (Bld) [Ratio]14.6 %High11.8 - 14.4 %[facility] MEDICAL CENTERPlatelet mean volume (Bld) [Entitic vol]9.7 fL8.1 - 13.[address] FRANCIS MEDICAL CENTERPlatelets (Bld) [#/Vol]248 10*3/uLBON [facility] RBC (Bld) [#/Vol]4.48 10*6/uL3.95 - 5.11 m/uLBON [facility] HEALTH SYSTEMSegmented neutrophils/100 WBC (Bld)64 %36 - 65 %[facility] MEDICAL CENTERSegs Absolute5.32 [facility] SYSTEMWBC (Bld) [#/Vol]8.2 10*3/uLBON [facility]ALTH SYSTEMBON [facility]ALTH SYSTEMCMPon [id number] [Mass/Vol]3.3 g/dLLow3.5 - 5.2 g/dL [facility] SYSTEMAlbumin/Globulin [Mass ratio]0.9 {ratio}Low1.0 - 2.5B[facility]ALTH SYSTEMALP [Catalytic activity/Vol]78 U/L35 - 104 U/LBON [facility]ALTH SYSTEMALT [Catalytic activity/Vol]14 U/L5 - 33 U/LB[facility] Anion gap [Moles/Vol]10 mmol/L9 - 17 mmol/LBON [facility]ALTH SYSTEMAST [Catalytic activity/Vol]14 U/LNINF - 32 U/LBON [facility] SYSTEMBilirubin [Mass/Vol]0.2 mg/dLLow0.3 - 1.2 mg/dLBON [facility]ALTH SYSTEMCalcium [Mass/Vol] 8.9 mg/dL8.6 - 10.4 mg/dLBON [facility]ALTH SYSTEMChloride [Moles/Vol]99 mmol/L98 - 107 mmol/LBON [facility]ALTH SYSTEMCO2 [Moles/Vol]28 mmol/L20 - 31 mmol/LBON [facility] SYSTEMCreatinine [Mass/Vol]0.87 mg/dL0.50 - 0.90 mg/dLBON [facility] HEALTH SYSTEMGFR/1.73 sq M.predicted MDRD (S/P/Bld) [Vol rate/Area]- PINFBON HOLZER HEALTH SYSTEMComment on above: These results are not intended [...] therapy that affects renal tubular secretion. Glucose [Mass/Vol]190 mg/rPWknh95 - 99 mg/dLBON [facility] Interpretation and review of laboratory resultsAbnormalBON [facility] Potassium [Moles/Vol]4.2 mmol/L3.7 - 5.3 mmol/LBON [facility]OURS MERCY HEALTHProtein [Mass/Vol]6.8 g/dL6.4 - 8.3 g/dLBON [facility]RS MERCY HEALTHSodium [Moles/Vol]137 mmol/L135 - 144 mmol/LBON SECOURS MERCY HEALTHUrea nitrogen [Mass/Vol]11 mg/dL6 - 20 mg/dLBON SECOURS MERCY HEALTHUrea nitrogen/Creatinine (Bld) [Mass ratio]139 - 20B[facility] MERCY HEALTHCT ABDOMEN PELVIS W IV CONTRAST Additional Contrast? Noneon [id number] and consolidation are found within the lower lungs bilaterally, compatible with pneumonia and/or aspiration, new when compared to the previous exam. Postsurgical changes within the pelvis, with expected postsurgical fat stranding. No evidence of abscess formation. MHPN RIS CONSOLIDATEDEXAMINATION: CT OF THE ABDOMEN AND PELVIS WITH [...] urinary bladder is decompressed. Adnexa regions unremarkable. Peritoneum/Retroperitoneum: Abdominal aorta normal in caliber. Superior mesenteric artery is enhancing. No lymphadenopathy. Bones/Soft Tissues: Fat stranding at trocar sites is noted. The extra-abdominal and extra pelvic soft tissues are otherwise unremarkable. No acute or suspicious bony abnormalities are detected. [facility] Berny Pacheco MD - 09/23/2022 EXAMINATION: CT OF THE ABDOMEN [...] urinary bladder is decompressed. Adnexa regions unremarkable. Peritoneum/Retroperitoneum: Abdominal aorta normal in caliber. Superior mesenteric [...] fat stranding. No evidence of abscess formation. [employer] Work Phone: radiology Study observation (narrative)[employer] Phone: cT ABDOMEN PELVIS W IV CONTRAST Additional Contrast? NoneOrdered By: Berny Shah on [id number] Work Phone: Lactic Acidon [id number] (P zaire) [Moles/Vol]1.4 mmol/L0.5 - 2.2 mmol/LBON BANNERInveniLOVELL GENERAL HOSPITALInveniLipaseon [id number] [Catalytic activity/Vol]24 U/L13 - 60 U/LBON BANNERInveniMicroscopic Urinalysison [id number] Cells UA2 TO 5BON NewsHuntRBC clumps Auto (Urine sed) [#/Area]NoneBON BANNERInveni Renal Epithelial, UA0 TO 20 /HPFBON NewsHuntWBC, UA0 TO 2BON BANNERWhere's Up [facility] METHODIST HOSPITALConfluent (Oblix / Oracle) [facility] HEALTHNotifo HEALTHNo Panel Informationon [id number] BANNERInveniUrinalysis with Reflex to Cultureon [id number] UrineSMALLAbnormalNEGATIVELOVELL GENERAL HOSPITALInveniColor, UAYellowYellowBON BANNERInveniGlucose Auto test strip (U) [Mass/Vol]NegativeNEGATIVECOBRE VALLEY REGIONAL [facility]ENTER [employer] HEALTHInterpretation and review of laboratory resultsAbnormalBON BANNERNotifo HEALTHKetones (U) [Mass/Vol]NegativeNEGATIVELOVELL GENERAL HOSPITALInveniLeukocyte esterase Auto test strip Ql (U)NegativeNEGATIVECOBRE VALLEY REGIONAL [facility]ENTER NewsHuntNitrite Auto test strip Ql (U)NegativeNEGATIVECOBRE VALLEY REGIONAL MED[facility]ENTER News[employer] Protein (U) [Mass/Vol]6.0 mg/dL5.0 - 9.0BON NewsHuntProtein (U) [Mass/Vol]1+AbnormalNEGATIVERIVERSIDE BEHAVIORAL HEALTH CENTER HEALTHSpecific [place], UAHigh 1.010 - 1.020BON BANNERSIVA [facility] HEALTHTurbidity UAClearClearLOVELL GENERAL HOSPITALSIVA [facility] HEALTHUrine HgbNegativeNEGATIVERIVERSIDE BEHAVIORAL HEALTH CENTER HEALTHUrobilinogen, UrineNormal NormalSENTARA PRINCESS [facility] HEALTHXR CHEST PORTABLEon . Mild vascular congestion without overt edema. 2. Patchy opacities in the lung bases, left greater than right, as seen with recent abdominal CT. [facility] CONSOLIDATEDEXAMINATION: ONE XRAY VIEW OF THE CHEST 09/23/2022 [...] The cardiac and mediastinal contours appear unchanged. [facility] Aj Patel MD - 09/23/2022 EXAMINATION: ONE XRAY VIEW [...] right, as seen with recent abdominal CT. [employer] Work Phone: radiology Study observation (narrative)[employer] Phone: XR CHEST PORTABLEOrdered By: Aj De Leon on 09-23-2022 [employer] Phone: LARGE JOINT/BURSA INJECTION AND/OR ASPIRATIONon [id number] Study observation (narrative)[facility] HospitalCBC with Auto Differentialon [id number] Eos #0.04BON SECOURS [facility] PICK[facility] METHODIST HOSPITALY [facility]ITALAbsolute Immature Granulocyte0.04[facility]OSPITALAbsolute Lymph #1.55[facility] HEALTHAbsolute Meeker #0.84B[facility] HOSPITALBasophils (Bld) [#/Vol] 0.04 10*3/uLBON SECOURS SAL[facility] CITY HOSPITALBasophils/100 WBC (Bld)0 %0 - 2 %[facility] SYSTEMEosinophils/100 WBC (Bld)0 %Low1 - 4 %[facility] Hematocrit (Bld) [Volume fraction]38.0 %36.3 - 47.1 %[facility] Hemoglobin (Bld) [Mass/Vol]11.7 g/dLLow11.9 - 15.1 g/dLBON [facility] Immature granulocytes/100 WBC (Bld)0 %0B[facility] SYSTEMInterpretation and review of laboratory resultsAbnormalBON [facility] HEALTH SYSTEMLymphocytes/100 WBC (Bld)16 %Low24 - 43 %[facility] HOSPITALH (RBC) [Entitic mass]26.8 pg 25.2 - 33.5 pgBON SECHOLZER HOSPITALHC (RBC) [Mass/Vol]30.8 g/dL28.4 - 34.8 g/dLBON SECHOLZER HOSPITALV (RBC) [Entitic vol]87.2 fL82.6 - 102.9 fLBON SECST. RITA'S HOSPITALMonocytes/100 WBC (Bld)9 %3 - 12 %[employer] [facility] NRBC Automated0.00.0 per 100 WBCBON SECST. RITA'S HOSPITALPlatelet distribution width (Bld) [Ratio]15.1 %High11.8 - 14.4 %BON SECST. RITA'S HOSPITALPlatelet mean volume (Bld) [Entitic vol]9.5 fL8.1 - 13.5 fLBON SECOURS [facility] HEALTHPlatelets (Bld) [#/Vol]250 10*3/uLBON SECOURS SAL[facility] CITY HOSPITALRBC (Bld) [#/Vol]4.36 10*6/uL 3.95 - 5.11 m/uLBON [facility] HEALTH SYSTEMRBC (Bld) [#/Vol]ANISOCYTOSIS PRESENTBON [facility]ALTH SYSTEMSegmented neutrophils/100 WBC (Bld)75 %High36 - 65 %[facility]ALTH SYSTEMSegs Absolute7.09B[facility] HEALTH SYSTEMWBC (Bld) [#/Vol] 9.6 10*3/uLBON [facility] HEALTHCBC with Diffon [id number]. Basophil0.04 k/uLNormal0.00-0.20[facility] Comment on above:Performed By: #### CDP #### [address] [address] Cdl Team Truck Driver: Bon Sanchez.Imm.Granulocyte0.04 k/uLNormal0.00-0.30[facility] HospitalComment on above:Performed By: #### CDP #### [address] [address] [employer]dl Team Truck Driver: Bon Sanchez.Neutrophil (Seg)7.09 k/uLNormal1.50-8.10 [facility] HospitalComment on above:Performed By: #### CDP #### [address] [address] [employer]dl Team Truck Driver: Aramis Hoffmann MDBasophils/100 WBC (Bld)0 %Normal0-2MercUCSF Benioff Children's Hospital OaklandComment on above:Performed By: #### CDP #### [address] [address] [employer]dl [employer] Truck Driver: Aramis Hoffmann MDEosinophils (Bld) [#/Vol]0.04 10*3/uLNormal 0.00-0.44[facility] HospitalComment on above:Performed By: #### CDP #### [address] [address] [employer]dl [employer] Driver: Aramis Hoffmann MDEosinophils/100 WBC (Bld)0 %Low1-4[facility] HospitalComment on above:Performed By: #### CDP #### [address] [address] [employer]dl [employer] Driver: Aramis Hoffmann MDErythrocyte distribution width (RBC) [Ratio]15.1 %High11.8-14.4[facility] HospitalComment on above:Performed By: #### CDP #### [address] [address] [employer]dl [employer] Truck Driver: Aramis Hoffmann MDHematocrit (Bld) [Volume fraction]38.0 %Normal 36.3-47.1MSeton Medical CenterComment on above:Performed By: #### CDP #### [address] [address] [employer]dl Team Truck Driver: Aramis Hoffmann MDHemoglobin (Bld) [Mass/Vol]11.7 g/dLLow11.9-15.1 [facility] HospitalComment on above:Performed By: #### CDP #### [address] [address] [employer]dl [employer] Truck Driver: Aramis Hoffmann MDImmature granulocytes/100 WBC (Bld)0 %Normal0 [facility] HospitalComment on above:Performed By: #### CDP #### [address] [address] [employer]dl [employer] Truck Driver: Aramis Hoffmann MDLymphocytes (Bld) [#/Vol]1.55 10*3/uLNormal 1.10-3.70[facility] HospitalComment on above:Performed By: #### CDP #### [address] [address] [employer]dl Team Truck Driver: Ginna Sanchezmphocytes/100 WBC (Bld)16 %Bte88-23RuwsrSamaritan HospitalComment on above:Performed By: #### CDP #### [address] [address] [employer]dl Team Truck Driver: LORY SanchezCH (RBC) [Entitic mass]26.8 uuWgnwee00.2-33.5 [facility] HospitalComment on above:Performed By: #### CDP #### [address] [address] [employer]dl Team Truck Driver: LORY SanchezCHC (RBC) [Mass/Vol]30.8 g/sWTandkf58.4-34.8 [facility] HospitalComment on above:Performed By: #### CDP #### [address] [address] [employer]dl Team Truck Driver: LORY SanchezCV (RBC) [Entitic vol]87.2 jODhixrs04.6-102.9 [facility] HospitalComment on above:Performed By: #### CDP #### [address] [address] [employer]dl [employer] Truck Driver: Aramis Hoffmann MDMonocytes (Bld) [#/Vol]0.84 10*3/uLNormal 0.10-1.20[facility] HospitalComment on above:Performed By: #### CDP #### [address] [address] [employer] Driver: Aramis Hoffmann MDMonocytes/100 WBC (Bld)9 %Normal3-12[facility] HospitalComment on above:Performed By: #### CDP #### [address] [address] [employer]dl Team Truck Driver: Aramis Hoffmann MDNeutrophil (Seg)75 %Yehl10-81HyzknSamaritan HospitalComment on above:Performed By: #### CDP #### [address] [address] [employer]dl Team Truck Driver: MICKEY Sanchez Automated0.0 per 100 WBCNormal0.0[facility] HospitalComment on above:Performed By: #### CDP #### [address] [address] [employer]dl [employer] Truck Driver: Nabor Sancheztelet mean volume (Bld) [Entitic vol]9.5 fL Normal8.1-13.5[facility] HospitalComment on above:Performed By: #### CDP #### [address] [address] [employer] Truck Driver: DENAE Sanchezlatelets (Bld) [#/Vol]250 10*3/gZLgvcyx596-915 [facility] HospitalComment on above:Performed By: #### CDP #### [address] [address] [employer]dl Team Truck Driver: JERILYN SanchezBC (Bld) [#/Vol]4.36 10*6/uLNormal3.95-5.11 [facility] HospitalComment on above:Performed By: #### CDP #### [address] [address] [employer]dl Team Truck Driver: PENELOPE Sanchez morphology finding Nom (Bld)ANISOCYTOSIS PRESENTNormalSamaritan HospitalComment on above:Performed By: #### CDP #### [address] [address] [employer]dl Team Truck Driver: MK SanchezBC (Bld) [#/Vol]9.6 10*3/uLNormal3.5-11.3MSeton Medical CenterComment on above:Performed By: #### CDP #### [address] [address] [employer]dl Team Truck Driver: Aramis Hoffmann [facility] Glucose Fingerstickon 22-88-8780Awgfalr [Mass/Vol]129 mg/sDZvqa62 - 105 mg/dLBON [facility] HEALTH SYSTEMInterpretation and review of laboratory resultsAbnormalBON [facility] HEALTHGlucose [Mass/Vol]135 mg/wJRflt27 - 105 mg/dLBON [facility] Interpretation and review of laboratory resultsAbnormalBON [facility] BON [facility] SYSTEMCA 125on [id number] [address] U/mLNormal<38[facility] HospitalComment on above:Result Comment: The Mallorie ECLIA assay is used. Results obtained with different assay methods cannot be used interchangeable.Performed By: #### CMPX, CA125, CDP #### [employer] [address] [id number] Cdl Team Truck Driver: Aramis Hoffmann CAN[facility]ER TREATMENT CENTERS OF AMERICA – TULSAancer Ag 125 Qn18 [arb'U]/mLNINF - 38 U/mLBON [facility] HEALTH SYSTEMComment on above:The Mallorie ECLIA assay is used. Results obtained with different assay methods cannot be used interchangeable. [facility] MEDICAL CENTERCBC auto differentialon [id number] Eos #0.19BON SECST. RITA'S HOSPITALAbsolute Immature Granulocyte0.04B[facility] SECST. [facility]OSPITAL Absolute Lymph #1.63[facility]OSPITALAbsolute Meeker #0.78[facility] HOSPITALBasophils (Bld) [#/Vol]0.05 10*3/uLBON SECST. RITA'S HOSPITALBasophils/100 WBC (Bld)1 %0 - 2 %[facility] MEDICAL CENTEREosinophils/100 WBC (Bld)2 %1 - 4 % [facility] MEDICAL CENTERHematocrit (Bld) [Volume fraction]42.8 %36.3 - 47.1 %[facility] MEDICAL CENTERHemoglobin (Bld) [Mass/Vol]13.4 g/dL11.9 - 15.1 g/dLBON [facility]ALTH SYSTEMImmature granulocytes/100 WBC (Bld)1 %Ozvf4STL SECNEW ORLEANS [facility]AST [facility]OSPITAL HEALTHInterpretation and review of laboratory resultsAbnormalBON [facility] HEALTH SYSTEMLymphocytes/100 WBC (Bld)20 %Low24 - 43 %[facility] HOSPITALH (RBC) [Entitic mass]26.7 pg25.2 - 33.5 pgCARILION FRANKLIN MEMORIAL HOSPITALHC (RBC) [Mass/Vol]31.3 g/dL28.4 - 34.8 g/dLBON ST. MARY'S MEDICAL CENTERV (RBC) [Entitic vol]85.3 fL82.6 - 102.[address] FRANCIS MEDICAL CENTERMonocytes/100 WBC (Bld)10 %3 - 12 %[facility] MEDICAL CENTERNRBC Automated0.00.[address] FRANCIS MEDICAL CENTERPlatelet distribution width (Bld) [Ratio]15.0 %High11.8 - 14.4 %[facility] MEDICAL CENTERPlatelet mean volume (Bld) [Entitic vol]10.0 fL8.1 - 13.5 fL [facility] HEALTHPlatelets (Bld) [#/Vol]255 10*3/uLBON SECOURS ST. FRANCIS MEDICAL CENTERRBC (Bld) [#/Vol]5.02 10*6/uL3.95 - 5.11 m/[facility] CampusRBC (Bld) [#/Vol]ANISOCYTOSIS PRESENTBON SECOURS ST. FR[facility] MEDICAL CENTERSegmented neutrophils/100 WBC (Bld)66 %High36 - 65 %[facility] MEDICAL CENTERSegs Absolute 5.36B[facility] SYSTEMWBC (Bld) [#/Vol]8.1 10*3/uLBON [facility]RS [facility] B[facility] SYSTEMCBC with Diffon [id number]. Basophil0.05 k/uLNormal 0.00-0.20[facility] HospitalComment on above:Performed By: #### CMPX, CA125, CDP #### [employer] [address] [id number] [employer]dl Team Truck Driver: Bon Sanchez.Imm.Granulocyte0.04 k/uLNormal0.00-0.30[facility] HospitalComment on above:Performed By: #### CMPX, CA125, CDP #### [address] [address] [employer]dl Team Truck Driver: Bon Sanchez.Neutrophil (Seg)5.36 k/uLNormal1.50-8.10 [facility] HospitalComment on above:Performed By: #### CMPRob, CA125, CDP #### [address] [address] [employer]dl Team [employer] Driver: Aramis Hoffmann MDBasophils/100 WBC (Bld)1 %Normal0-2MSeton Medical CenterComment on above:Performed By: #### CMPRob, CA125, CDP #### [place] [address] [employer]dl Team [employer] Driver: Aramis Hoffmann MDEosinophils (Bld) [#/Vol]0.19 10*3/uLNormal 0.00-0.44[facility] HospitalComment on above:Performed By: #### JERRY CA125, CDP #### [place] [address] [employer]dl Team Truck Driver: POLO Sanchezosinophils/100 WBC (Bld)2 %Normal1-4[facility] HospitalComment on above:Performed By: #### CMPRob, CA125, CDP #### [place] [address] [employer]dl Team Truck Driver: Aramis Hoffmann MDErythrocyte distribution width (RBC) [Ratio]15.0 %High11.8-14.4[facility] HospitalComment on above:Performed By: #### CMPX, CA125, CDP #### [address] [address] [employer]dl Team Truck Driver: Aramis Hoffmann MDHematocrit (Bld) [Volume fraction]42.8 %Normal 36.3-47.1[facility]adybrook Medical CenterComment on above:Performed By: #### CMPX, CA125, CDP #### [facility] [address] [place] [address] [employer]dl Team Truck Driver: Aramis Hoffmann MDHemoglobin (Bld) [Mass/Vol]13.4 g/dLNormal 11.9-15.1MSeton Medical CenterComment on above:Performed By: #### CMPX, CA125, CDP #### [address] [address] [employer]dl Team Truck Driver: Katie Sanchezmature granulocytes/100 WBC (Bld)1 %Vcxr7UhaapSamaritan HospitalComment on above:Performed By: #### CMPRob, CA125, CDP #### [address] [address] [employer]dl Team Truck Driver: Ginna Sanchezmphocytes (Bld) [#/Vol]1.63 10*3/uLNormal 1.10-3.70[facility] HospitalComment on above:Performed By: #### CMPX, CA125, CDP #### [address] [address] [employer]dl Team [employer] Driver: Ginna Sanchezmphocytes/100 WBC (Bld)20 %Zmw15-18DwfnpSamaritan HospitalComment on above:Performed By: #### CMPX, CA125, CDP #### [address] [address] [employer]dl Team Truck Driver: ANGELES Sanchez (RBC) [Entitic mass]26.7 zcTdsrzy52.2-33.5 [facility] HospitalComment on above:Performed By: #### CMPX, CA125, CDP #### [address] [address] Cdl Team Truck Driver: Aramis Madoff, MDMCHC (RBC) [Mass/Vol]31.3 g/vJGchjaz91.4-34.8 [facility] HospitalComment on above:Performed By: #### CMPX, CA125, CDP #### [address] [address] [employer]dl Team Truck Driver: Aramis Hoffmann MDMCV (RBC) [Entitic vol]85.3 aKRvddsn34.6-102.9 [facility] HospitalComment on above:Performed By: #### CMPX, CA125, CDP #### [address] [address] [employer]dl Team Truck Driver: LORY Sanchezonocytes (Bld) [#/Vol]0.78 10*3/uLNormal 0.10-1.20[facility] HospitalComment on above:Performed By: #### CMPX, CA125, CDP #### [address] [address] [employer]dl Team Truck Driver: LORY Sanchezonocytes/100 WBC (Bld)10 %Normal3-12[facility] HospitalComment on above:Performed By: #### CMPX, CA125, CDP #### [address] [address] Cdl Team Truck Driver: Aramis Hoffmann MDNeutrophil (Seg)66 %Axqs34-06AthzcSamaritan HospitalComment on above:Performed By: #### CMPX, CA125, CDP #### [facility] [employer] [address] [place] [address] Cdl Team Truck Driver: Aramis Hoffmann MDNRBC Automated0.0 per 100 WBCNormal0.0[facility] HospitalComment on above:Performed By: #### CMPX, CA125, CDP #### [facility] [employer] [address] [place] [address] [employer]dl Team Truck Driver: Aramis Madoff, MDPlatelet mean volume (Bld) [Entitic vol]10.0 fL Normal8.1-13.5[facility] HospitalComment on above:Performed By: #### CMPX, CA125, CDP #### [address] [address] [employer]dl Team Truck Driver: Nabor Sancheztelets (Bld) [#/Vol]255 10*3/bAIxcewf833-463 [facility] HospitalComment on above:Performed By: #### CMPX, CA125, CDP #### [address] [address] [employer]dl Team Truck Driver: PENELOPE Sanchez (Bld) [#/Vol]5.02 10*6/uLNormal3.95-5.11 [facility] HospitalComment on above:Performed By: #### CMPX, CA125, CDP #### [address] [address] [employer]dl Team Truck Driver: PENELOPE Sanchez morphology finding Nom (Bld)ANISOCYTOSIS PRESENTNormalSamaritan HospitalComment on above:Performed By: #### CMPX, CA125, CDP #### [address] [address] Cdl Team Truck Driver: MK SanchezBC (Bld) [#/Vol]8.1 10*3/uLNormal3.5-11.3Mcoshocton regional medical centery Ronald Reagan Ucla Medical CenterComment on above:Performed By: #### CMPX, CA125, CDP #### [address] [address] [employer]dl Team Truck Driver: Shlomo Sanchez Metabolic Pr/rfx MGon [id number] [Catalytic activity/Vol]25 U/LNormal<32[facility] HospitalComment on above:Performed By: #### CMPX, CA125, CDP #### [address] [place] [address] [employer]dl Team Truck Driver: Aramis Hoffmann MDAlbumin [Mass/Vol]3.7 g/dLNormal3.5-5.2MSeton Medical CenterComment on above:Performed By: #### CMPX, CA125, CDP #### [facility] [address] [place] [address] Cdl Team Truck Driver: Aramis Hoffmann MDAlbumin/Glob Ratio1.1Wzvixc7.0-2.5[facility] HospitalComment on above:Performed By: #### CMPX, CA125, CDP #### [address] [address] [employer] Driver: Felisa Sanchezkaline Phos97 U/[id number] HospitalComment on above:Performed By: #### CMPRob, CA125, CDP #### [address] [address] [employer] Driver: Aramis Hoffmann MDALT [Catalytic activity/Vol]27 U/LNormal5-33 [facility]itan HospitalComment on above:Performed By: #### CMPX, CA125, CDP #### [facility] [address] [place] [id number] [employer] Driver: Emilia Sanchez gap [Moles/Vol]8 mmol/LLow9-17Samaritan HospitalComment on above:Performed By: #### CMPX, CA125, CDP #### [facility] [address] [place] [id number] [employer] Driver: Aramis Hoffmann MDBilirubin [Mass/Vol]0.3 mg/dLNormal0.3-1.2MSeton Medical CenterComment on above:Performed By: #### CMPX, CA125, CDP #### [facility] [address] [place] [id number] [employer] Driver: SURJIT Sanchezalcium [Mass/Vol]9.2 mg/dLNormal8.6-10.4Samaritan HospitalComment on above:Performed By: #### EZRA EDWARDS25, CDP #### [facility] [address] [place] [address] Cdl Team Truck Driver: SURJIT Sanchezhloride [Moles/Vol]98 mmol/PTlrtfx69-548BjhziSamaritan HospitalComment on above:Performed By: #### JERRY CA125, CDP #### [facility] [address] [place] [address] Cdl Team Truck Driver: Aramis Hoffmann MDCO2 [Moles/Vol]27 mmol/OLwebaz28-22VaeitSamaritan HospitalComment on above:Performed By: #### EZRA EDWARDS25, CDP #### [facility] Center[facility] [address] [place] [address] Cdl Team Truck Driver: SURJIT Sanchezreatinine [Mass/Vol]0.72 mg/dLNormal0.50-0.90 Samaritan HospitalComment on above:Performed By: #### JERRY CA125, CDP #### [facility] Center[facility] [address] [place] [address] Cdl Team Truck Driver: Aramis Hoffmann MDGFR/1.73 sq M.predicted among non-blacks MDRD (S/P/Bld) [Vol rate/Area]mL/min/{1.73_m2}Normal>60Samaritan HospitalComment on above:Result Comment: These results are not intended for [...] or following therapy that affects renal tubular secretion.Performed By: #### CMPRob CA125, CDP #### [address] [address] Cdl Team Truck Driver: Aramis Hoffmann MDGlucose [Mass/Vol]130 mg/hGKaij27-45ClqwnSeton Medical CenterComment on above:Performed By: #### CMPX, CA125, CDP #### [facility] [address] [place] [address] Cdl Team Truck Driver: Aramis Hoffmann MDPotassium [Moles/Vol]4.6 mmol/LNormal3.7-5.3 Samaritan HospitalComment on above:Performed By: #### CMPRob CA125, CDP #### [address] [address] Cdl Team Truck Driver: Aramis Hoffmann MDProtein [Mass/Vol]7.0 g/dLNormal6.4-8.3MSeton Medical CenterComment on above:Performed By: #### CMPRob CA125, CDP #### [address] [address] Cdl Team Truck Driver: Aramis Hoffmann MDSodium [Moles/Vol]133 mmol/SYxk431-354QpyvhSamaritan HospitalComment on above:Performed By: #### JERRY, CA125, CDP #### [address] [address] Cdl Team Truck Driver: Aramis Hoffmann MDUrea nitrogen [Mass/Vol]12 mg/dLNormal6-20Samaritan HospitalComment on above:Performed By: #### CMPX, CA125, CDP #### [address] [address] Cdl Team Truck Driver: SURJIT Sanchezomprehensive Metabolic Panel w/ Reflex to MGon 34-27-7951Dlbwdvg [Mass/Vol]3.7 g/dL3.5 - 5.2 g/dLBON [facility] Albumin/Globulin [Mass ratio]1.1 {ratio}1.0 - 2.5[facility] VoAPPs [facility] HOSPITALALP [Catalytic activity/Vol]97 U/L35 - 104 U/LBON SECCOLUMBIA BASIN HOSPITALConfluent (Oblix / Oracle) [facility]OSPITALALT [Catalytic activity/Vol]27 U/L5 - 33 U/LB[facility] VoAPPs [facility] HOSPITALAnion gap [Moles/Vol]8 mmol/LLow9 - 17 mmol/LBON SECCOLUMBIA BASIN HOSPITALConfluent (Oblix / Oracle) [facility]OSPITALAST [Catalytic activity/Vol]25 U/L NINF - 32 U/LBON SECCOLUMBIA BASIN HOSPITALBevyBilirubin [Mass/Vol]0.3 mg/dL0.3 - 1.2 mg/dLBON [facility] DOM[facility]ICAN CAMPUSConfluent (Oblix / Oracle) [facility] HOSPITALCalcium [Mass/Vol]9.2 mg/dL8.6 - 10.4 mg/dLBON [facility] ALICE VoAPPs [facility]RINERS HOSPITALChloride [Moles/Vol]98 mmol/L98 - 107 mmol/LBON [facility] MER[facility] DOMINICAN CAMPUSBevyCO2 [Moles/Vol]27 mmol/L20 - 31 mmol/LBON [facility] Codekko Creatinine [Mass/Vol]0.72 mg/dL0.50 - 0.90 mg/dLBON [facility] ALICE AllBusiness.comGFR/1.73 sq M.predicted MDRD (S/P/Bld) [Vol rate/Area]- PINFBON [facility] MER[facility] DOMINICAN CAMPUSConfluent (Oblix / Oracle) [facility] Comment on above: These results are [...] therapy that affects renal tubular secretion. Glucose [Mass/Vol]130 mg/uNAaej64 - 99 mg/dLBON [facility] MER[facility] DOMINICAN CAMPUSBevy Interpretation and review of laboratory resultsAbnormalBON [facility] Codekko Potassium [Moles/Vol]4.6 mmol/L3.7 - 5.3 mmol/LBON [facility] ALICE AllBusiness.comProtein [Mass/Vol]7.0 g/dL6.4 - 8.3 g/dLBON [facility] ALICE VoAPPs [facility] SHRINERS HOSPITALSodium [Moles/Vol]133 mmol/GAjj230 - 144 mmol/LBON [facility] ALICE AllBusiness.comUrea nitrogen [Mass/Vol]12 mg/dL6 - 20 mg/dLBON HOLZER HEALTH SYSTEMBON HOLZER HEALTH SYSTEMHCG Screen, Bloodon 52-84-4171URZ Screen, BloodNegativeNormalNEGSamaritan HospitalComment on above:Result Comment: Specimens with hCG levels near the threshold of the test (25 mIU/mL) may give a negative or indeterminate result. In such cases, another test should be performed with a new specimen in 48-72 hours. If early is suspected clinically in this setting, correlation with quantitative serum b-hCG level is suggested. [employer] has confirmed the use of plasma for this test. This has not been cleared or approved by the U.S. Food and Drug Administration. The FDA has determined that such clearance is not necessary.Performed By: #### HCG #### [address] [address] Cdl Team Truck Driver: Aramis Hoffmann MDHCG, SERUM, QUALITATIVEon 29-55-4674mWM Qual NegativeNEGATIVEBON SECOURS ST. FRANCIS MEDICAL CENTERComment on above:Specimens with hCG levels near the threshold of the test (25 mIU/mL) may give a negative or indeterminate result. In such cases, another test should be performed with a new specimen in 48-72 hours. If early is suspected clinically in this setting, correlation with quantitative serum b-hCG level is suggested. [employer] has confirmed the use of plasma for this test. This has not been cleared or approved by the U.S. Food and Drug Administration. The FDA has determined that such clearance is not necessary. [facility] MEDICAL CENTEROPERATIVE REPORTon 68-53-4552HGSYKVJYG [place] [address] [place] [address] OPERATIVE REPORT PATIENT NAME: SARAH HARRIS : 1975 MED REC NO: [id number] ROOM: 0444 ACCOUNT NO: [id number] ADMIT DATE: 09/08/2022 PROVIDER: Clemencia Campos MD DATE OF PROCEDURE: 09/08/2022 PREOPERATIVE DIAGNOSES: Morbid obesity, pelvic pain, pelvic mass, post ablation syndrome. POSTOPERATIVE DIAGNOSES: Morbid obesity, pelvic pain, pelvic mass, post ablation syndrome, pelvic endometriosis, and retroperitoneal fibrosis. OPERATION PERFORMED: Robotic radical hysterectomy, bilateral salpingo-oophorectomy. SURGEON: Clemencia Campos MD MONEY MARKET DEALER: Benny, PGY-4, Resident ANESTHESIA: General with endotracheal [...] incision, which had been (more content not included)...NormalMercy California Hospital [facility] Center Glucose Fingerstickon 00-50-0347Elvnxik [Mass/Vol]228 mg/jELoos97 - 105 mg/dLBON HOLZER HEALTH SYSTEMInterpretation and review of laboratory resultsAbnormalCOBRE VALLEY REG[facility] SECAUROR[facility] IN SUMMITGlucose [Mass/Vol]192 mg/kWUwoa45 - 105 mg/dLBON H[facility] HEALTH SYSTEMInterpretation and review of laboratory results AbnormalBON SECAURORA MEDICAL CENTER IN SUMMITGlucose [Mass/Vol]192 mg/fVPois61 - 105 mg/dLBON HOL[facility]ER HEALTH SYSTEMInterpretation and review of laboratory resultsAbnormalINOVA [facility]FAX [facility]ITAL Glucose [Mass/Vol]207 mg/eGRrby40 - 105 mg/dLBON [facility] Interpretation and review of laboratory resultsAbnormCentra [facility] Memorial Hospital RICHELLE [facility] HEALTH SYSTEMGlucose [Mass/Vol]135 mg/qYDlto43 - 105 mg/dLBON [facility] HEALTH SYSTEMInterpretation and review of laboratory resultsAbnormalINOVA FAIRFAX HOSPITALSurgical Pathologyon 37-45-4278Jgjqwlgh Pathology(NOTE) -- Diagnosis -- UTERUS, CERVIX, BILATERAL FALLOPIAN TUBES AND OVARIES, HYSTERECTOMY WITH BILATERAL SALPINGECTOMY:-FOCI OF INACTIVE ENDOMETRIUM WITH TREATMENT EFFECT. -FOCAL ADENOMYOSIS. -BILATERAL OVARIES WITH BENIGN CYSTS.-BENIGN CERVIX AND BILATERAL FALLOPIAN TUBES. Joan Claire Electronically Signed Out tb06/03/1109/09/2022 Clinical Information Pre-op Diagnosis: POST ABLATION SYNDROME, [...] right tube and ovary 21 grams. Serosa: Demarest-amador. Cervix: 4.8 x 4.5 x 4.3 cm, [...] examination performed. SURGICAL PATHOLOGY CONSULTATION Patient Name: SARHA HARRIS [facility] Rec: [id number] Path Number: [id number] [employer] [facility] ANATOMIC PATHOLOGY [address] [place] [id number] [facility] HospitalComment on above: Performed By: #### PPPVS #### [facility] [facility] [address] [place] [address] Cdl Team Truck Driver: Aramis Hoffmann MDType + Screenon 40-09-6460Hfbw + ScreenSample Expiration 09/11/2022,2949 Arm Band Number [id number] ABO/Rh(D) O POSITIVE Antibody Screen NOT TESTED Antibody Ident Anti-Rahman(A) Present MIGUEL ANGEL, Anti-IgG Conner Serum NEGATIVE Unit Number [id number] Blood Component Type Leukocyte Reduced Red Cell Unit Division 00 Status of Unit REL FROM ALLOC Transfusion Status OK TO TRANSFUSE Crossmatch Result COMPATIBLE Unit Number [id number] Blood Component Type Leukocyte Reduced Red Cell Unit Division 00 Status of Unit REL FROM ALLOC Transfusion Status OK TO TRANSFUSE Crossmatch Result COMPATIBLE Unit Number [id number] Blood Component Type Leukocyte Reduced Red Cell Unit Division 00 Status of Unit REL FROM ALLOC Transfusion Status OK TO TRANSFUSE Crossmatch Result COMPATIBLE Unit Number [id number] Blood Component Type Leukocyte Reduced Red Cell Unit Division 00 Status of Unit REL FROM ALLOC Transfusion Status OK TO TRANSFUSE Crossmatch Result COMPATIBLECleveland Clinic Fairview HospitalComment on above:Performed By: #### TYS #### [facility] [address] [place], [place] [id number] Cdl Team Truck Driver: ARMEN Sanchez 12 leadOrdered By: Miquel Santos on 08-25-2022 Atrial Yawl45PXSGSW [employer] Work Phone: [phone] Mjkw08emdzjhdOQX [employer] Work Phone: P-R Jkjbcacs325 msBON [employer] Work Phone: [phone]-T Rxfkuagn259 msBON [employer] Work Phone: QRS Gfbbpchw77 msBON [employer] Work Phone: [phone] Calculation (Bazett)433 msBON [employer] Work Phone: [phone] Xvbw57xfdarmoMNU [employer] Work Phone: [phone] Xqlf31hmliignFUMKBJ [employer] Work Phone: [phone] Ndfx63VUVVRX [employer] Work Phone: [phone] [employer] Work Phone: EKG 12 leadon 69-36-4072Ldfltd sinus rhythm Normal ECG When compared with ECG of 04-DEC-2021 10:24, No significant change was found Confirmed by Miquel Santos MD ([id number]) on 08/25/2022 3:15:[address] [facility] Miquel Santos MD - 08/25/2022 Normal sinus rhythm Normal ECG When compared with ECG of 04-DEC-2021 10:24, No significant change was found Confirmed by Miquel Santos MD ([id number]) on 08/25/2022 3:15:19 PM BON [employer] Work Phone: lARGE JOINT/BURSA INJECTION AND/OR ASPIRATIONon 35-54-1728BcczkJose London ATC 09/10/2022 11:45 PM LARGE JOINT/BURSA [...] sterile fashion. The patient was prepped with Chloraprep.[facility] SystemUS Unspecified body regionon 50-63-4649Yozqy Storage This order is to facilitate the storage of the image.[facility] Estradiolon 79-79-1012Kblfwdcsc77.2 pg/mL27 - 314 pg/mLBON [facility] Comment on above: FEMALES: Normally menstruating Luteal phase 33-298 Follicular phase 27-156 Midcycle phase 48-314 Postmenopausal (untreated) 5-50 Fulvestrant treatment will show an increased estradiol concentration with this methodology. Alternate methodologies are available upon request. Follicle Stimulating Hormoneon 65-02-8502JGV9.3B[facility] HEALTH SYSTEMComment on above:Reference Range: Male: 1.5-12.4 Ovulating Female: Follicular Phase 3.5-12.5 Ovulation Phase 4.7-21.5 Luteal Phase 1.7-7.7 Postmenopausal Female: 25.8-134.8 No Panel Informationon 42-51-9813QAT [facility] EXTREMITY INJECTIONon 52-62-8376EdanKeila Hemphill MD 06/23/2022 1:52 PM LOWER EXTREMITY [...] sterile fashion. The patient was prepped with alcohol.[facility] Radiology Study observation (narrative)[facility] HospitalXR HIPS WITH PELVIS BILATERALon 84-25-4866MU HIPS WITH PELVIS BILATERALEXAM: XR HIPS WITH PELVIS BILATERAL HISTORY: Painful [...] and left hips. 2. Degenerative changes sacroiliac joints.[facility] CenterXR LUMBAR SPINE (MIN 6 VIEWS)on 15-04-1223UXAMUZSS/IMPRESSION: 1. Moderate degenerative change disc and facets L4-L5 and L5-S1. 2. Mild degenerative disc space narrowing otherwise. 3. No pars defects or fracture. 4. No abnormal motion on flexion-extension. 5. Symmetric moderate degenerative change at the SI joints. [facility] CONSOLIDATEDEXAM: XR LUMBAR SPINE (MIN 6 VIEWS) HISTORY: Low back pain, unspecified back pain laterality, unspecified chronicity, unspecified whether sciatica present COMPARISON: CT abdomen pelvis 01/07/2022, lumbar spine series 04/13/2021. [facility] Tim, Jairo Taylor Jr., MD - 06/10/2022 EXAM: XR LUMBAR [...] moderate degenerative change at the SI joints. [employer] Phone: radiology Study observation (narrative)[employer] Phone: XR LUMBAR SPINE (MIN 6 VIEWS)Ordered By: Jairo Mcdonald on 14-15-4902BMT [employer] Phone: MRI LUMBAR SPINE WO CONTRASTon 05-18-2022 1. Moderate degenerative disc disease and facet arthropathy at L5-S1. Disc bulge and ligamentum flavum thickening result in severe spinal stenosis. There is moderate bilateral foraminal narrowing at this level. 2. Normal alignment. No acute compression fractures. [facility] WITHOUT CONTRAST, 05/18/2022 HISTORY: Low [...] in the conus medullaris. No paraspinal mass. [facility] Hao Mccormick MD - 05/18/2022 MRI LUMBAR SPINE WITHOUT [...] 2. Normal alignment. No acute compression fractures. [employer] Phone: radiology Study observation (narrative)[employer] Phone: I LUMBAR SPINE WO CONTRASTOrdered By: Hao Toth on 95-51-4001FHL [employer] Work Phone: Basic Metabolic Panelon 60-87-0022Ohhsu gap [Moles/Vol]8 mmol/LLow9 - 17 mmol/LBON [facility] ALICE AllBusiness.comCalcium [Mass/Vol]8.9 mg/dL8.6 - 10.4 mg/dLBON BANNERInveniChloride [Moles/Vol]100 mmol/L98 - 107 mmol/LBON [facility] ALICE AllBusiness.comCO2 [Moles/Vol]27 mmol/L20 - 31 mmol/LBON [facility] ALICE AllBusiness.comCreatinine [Mass/Vol]0.56 mg/dL0.50 - 0.90 mg/dLBON NewsHuntGFR/1.73 sq M.predicted MDRD (S/P/Bld) [Vol rate/Area]- PINFBON BANNERInveniComment on above: Effective Mar 02, 2022 These [...] therapy that affects renal tubular secretion. Glucose [Mass/Vol]119 mg/jWApre95 - 99 mg/dLBON BANNERInveni Interpretation and review of laboratory resultsAbnormalBON BANNERInveni Potassium [Moles/Vol]4.3 mmol/L3.7 - 5.3 mmol/LBON BANNERInveniSodium [Moles/Vol]135 mmol/L135 - 144 mmol/LBON [facility] ALICE AllBusiness.comUrea nitrogen (BldV) [Mass/Vol]10 mg/dL6 - 20 mg/dLBON BANNERInveniUrea nitrogen/Creatinine (Bld) [Mass ratio]189 - 20BON [facility] MER[facility] DOMINICAN CAMPUSBevyB[facility] AllBusiness.comCBCon 16-85-4730Wpmliegmod (Bld) [Volume fraction]38.3 %36.3 - 47.1 %[facility] MEDICAL CENTERHemoglobin (Bld) [Mass/Vol]11.8 g/dLLow11.9 - 15.1 g/dLBON HOLZER HEALTH SYSTEMInterpretation and review of laboratory results AbnormalCARILION FRANKLIN MEMORIAL HOSPITALH (RBC) [Entitic mass]26.2 pg25.2 - 33.5 pgCARILION FRANKLIN MEMORIAL HOSPITALHC (RBC) [Mass/Vol]30.8 g/dL28.4 - 34.8 g/dLBON ST. MARY'S MEDICAL CENTERV (RBC) [Entitic vol]84.9 fL82.6 - 102.[address] FRANCIS MEDICAL CENTERNRBC Automated0.00.[address] FRANCIS MEDICAL CENTERPlatelet distribution width (Bld) [Ratio]14.9 %High11.8 - 14.4 %[facility] Platelet mean volume (Bld) [Entitic vol]9.5 fL8.1 - 13.[address] FRANCIS MEDICAL CENTERPlatelets (Bld) [#/Vol]267 10*3/uLBON SECOURS ST. FRANCIS MEDICAL CENTERRBC (Bld) [#/Vol]4.51 10*6/uL3.95 - 5.11 m/uLBON SECOU[address] ST. FRANCIS MEDICAL CENTERWBC (Bld) [#/Vol]11.1 10*3/uLINOVA FAIRFAX HOSPITALANA Antinuclear Antibodieson 99-95-2635Ibkghkfyopg Abs, IFANegativeNormal.[facility] HospitalComment on above:Result Comment: Negative <1:80 Borderline 1:80 Positive >1:80 ICAP nomenclature: AC-0 For more information about Hep-2 cell patterns use ANApatterns.org, the official website for the International Consensus on Antinuclear Antibody (EUGENE) Patterns (ICAP). Performed at: - [facility] [address] [id number] Cdl Team Truck Driver: Brandon Duarte PhD, Phone: [phone] PERFORMED BY: [facility] [place] [address] PATHOLOGIST ISSUER RADHA SHERIDAN M.D.Performed By: #### EUGENE #### [facility] , #### CK #### [facility] [address] [place] [address] USACreatine Kinaseon 69-98-2680OH [Catalytic activity/Vol]56 U/TOmfitl84-552CgoppeowjMercy Health West HospitalComment on above:Result Comment: PERFORMED BY: [place] [address] PATHOLOGIST ISSUER RADHA SHERIDAN M.D.Performed By: #### EUGENE #### [facility] , #### CK #### [facility] [address] [place], [place] [id number] USACreatine kinase [Enzymatic activity/volume] in Serum or PlasmaOrdered By: Ministerio Martínez on 70-46-1595FQ [Catalytic activity/Vol]56 U/L [facility] HospitalXR hand BI 2Von 40-11-2988DI hand BI 2V [facility] Main [place] [address] [place] [address] XRay Report Signed Patient: Sarah Harris MR#: [id number] 69 : 1975 Acct:[id number] Age/Sex: 46 / F ADM Date: 01/28/22 Loc: [facility] Room: Type: [facility] Attending Dr: Ministerio Martínez MD Copies [...] Omero Lloyd M.D.01/28/2022 2:52 PM Dictation Location: [place] [address] Transcribed By: NATALIE 01/28/22 1652 Dictated By: Omero Lloyd II, MD 01/28/22 1459 Signed By: 01/28/22 1452NormKettering Health PrebleBUN & Creatinineon 48-06-1138Vnlxgmbrzu [Mass/Vol]0.55 mg/dL0.5 - 0.9 mg/dLBON BANNERWhere's Up [facility] GFR >6060 - PINF mL/minLOVELL GENERAL HOSPITALWhere's Up [facility]PITALGFR Non->6060 - PINF mL/minLOVELL GENERAL HOSPITALWhere's Up [facility]OSPITALUrea nitrogen (BldV) [Mass/Vol]8 mg/dL6 - 20 mg/dLBON [facility] Laboratory - Chemistry and Chemistry - challengeon 77-52-5817UFS/1.73 sq M.predicted MDRD (S/P/Bld) [Vol rate/Area][facility] HOSPITALWhere's Up [facility]PITALComment on above:Average GFR for 40-49 years old: 99 mL/min/1.73sq m Chronic Kidney Disease: <60 mL/min/1.73sq m Kidney failure: <15 mL/min/1.73sq m eGFR calculated using average adult body mass. Additional eGFR calculator available at: http://www.LiveExercise/multiple_crcl_2012.htm Stage 1: Some kidney damage normal GFR Stage 2: Mild kidney damage GFR 60-89 Stage 3: Moderate kidney damage GFR 30-59 Stage 4: Severe kidney damage GFR 15-29 Stage 5: Severe kidney damage GFR <15 ESRD - chronic treatment by dialysis or transplant Glucose, Whole Bloodon 55-25-8086Xyjipym [Mass/Vol]125 mg/iTHtjy93 - 100 mg/dL [facility] HOSPITALWhere's Up [facility] CodekkoInterpretation and review of laboratory resultsAbnormal IN[facility] FAIRFAX HOSPITALCulture, Urineon 12-05-2021 Bacteria identified Cx Nom (U)NO SIGNIFICANT GROWTHB[facility] ST[facility] Specimen Description.CLEAN CATCH URINEINOVA FAIRFAX HOSPITALEKG 12 LeadOrdered By: Clemencia Knox on 57-58-0162Iuwksy Omhq16CTCLNT [facility] [employer] Work Phone: p Ymjn20edtanvaVLR SECWhere's Up [facility] Work Phone: P-R Yqjrqcov337 msBON [employer] Work Phone: Q-T Viemdozj385 msBON SECPennantY HEALTH Work Phone: QRS Gsybhhcp91 msBON SECPennantY HEALTH Work Phone: QTc Calculation (Bazett)450 msBON [employer] Work Phone: R Pzwy81vquwjqnTEK [employer] Work Phone: T Qxgy09zvkopcuOYF [employer] Work Phone: Ventricular Yywy56FAENDW SEC[employer]i Work Phone: bON [employer] Work Phone: EKG 12 Leadon 06-37-5780Lmbpks sinus rhythm Normal ECG No previous ECGs available Confirmed by CLEMENCIA KNOX ([id number]) on 12/05/2021 12:01:[address] [facility] Clemencia Knox MD - 12/05/2021 Normal sinus rhythm Normal ECG No previous ECGs available Confirmed by CLEMENCIA KNOX ([id number]) on 12/05/2021 12:01:49 PMBON [employer] Work Phone: cBC with Auto Differentialon 02-42-8797Vvolufhy Eos # 0.59HighBON SECOURS MERCY HEALTHAbsolute Immature Granulocyte0.05B[facility] MERCY HEALTHAbsolute Lymph #2.41B[facility] MERCY HEALTHAbsolute Meeker #0.76B[facility] HEALTHBasophils (Bld) [#/Vol]0.09 10*3/uLBON SECOURS [facility]ALTH Basophils/100 WBC (Bld)1 %0 - 2 %B[facility] MERCY HEALTHEosinophils/100 WBC (Bld)5 %High1 - 4 %[facility] MERCY HEALTHHematocrit (Bld) [Volume fraction] 41.1 %36.3 - 47.1 %[facility] MERCY HEALTHHemoglobin (Bld) [Mass/Vol]12.2 g/dL 11.9 - 15.1 g/dLBON SECST. RITA'S HOSPITALImmature granulocytes/100 WBC (Bld)0 %[address] [facility] MEDICAL CENTERInterpretation and review of laboratory resultsAbnormal BON BRIANNA [facility]ERS CINCINNAT[facility] SHRINERS HOSPITALLymphocytes/100 WBC (Bld)20 %Low24 - 43 %BON [facility]. [facility]S MEDICAL CENTERH (RBC) [Entitic mass]24.7 pgLow25.2 - 33.[address] MARY'S MEDICAL CENTERHC (RBC) [Mass/Vol]29.7 g/dL28.4 - 34.8 g/dLBON SECHOLZER HOSPITALV (RBC) [Entitic vol]83.2 fL82.6 - 102.[address] FRANCIS MEDICAL CENTERMonocytes/100 WBC (Bld)6 %3 - 12 %[facility] MEDICAL CENTERNRBC Automated0.00.[address] FRANCIS MEDICAL CENTERPlatelet distribution width (Bld) [Ratio]16.2 %High11.8 - 14.4 %[facility] MEDICAL CENTERPlatelet mean volume (Bld) [Entitic vol]9.7 fL8.1 - 13.5 fLCOBRE VALLEY REGIONAL MEDICAL [facility]ENTER SECNEW ORLEANS EAST HOSPITAL HEALTHPlatelets (Bld) [#/Vol]329 10*3/uLBON SECNEW ORLEANS EAST HOSPITAL HEALTHRBC (Bld) [#/Vol]4.94 10*6/uL3.95 - 5.11 m/uLBON HOLZER HEALTH SYSTEMSegmented neutrophils/100 WBC (Bld)68 %High36 - 65 %[facility] MEDICAL CENTERSegs Absolute7.91BON SECST. RITA'S HOSPITALWBC (Bld) [#/Vol]11.8 10*3/uLHigh B[facility] MEDICAL CENTERBON SECST. RITA'S HOSPITALHCG Qualitative, Serumon 02-23-3630zFO QualNegativeNEGATIVEBON SECOURS ST. FRANCIS MEDICAL CENTERComment on above: Specimens with hCG levels near the threshold of the test (25 mIU/mL) may give a negative or indeterminate result. In such cases, another test should be performed with a new specimen in 48-72 hours. If early is suspected clinically in this setting, correlation with quantitative serum b-hCG level is suggested. [facility] has confirmed the use of plasma for this test. This has not been cleared or approved by the U.S. Food and Drug Administration. The FDA has determined that such clearance is not necessary. [facility] with Auto Differentialon 54-45-7851Yntdalqe Eos # 0.60HighMartins Ferry Hospital HealthAbsolute Lymph #2.10Mer HealthAbsolute Meeker #0.50Mer HealthBasophils (Bld) [#/Vol]0.10 10*3/uLMer HealthBasophils/100 WBC (Bld)1 %0 - 2 %[facility] Medical CenterDifferential TypeYESMerc HealthEosinophils/100 WBC (Bld)6 % High0 - 5 %[facility] Medical CenterHematocrit (Bld) [Volume fraction]36.8 %36 - 46 %[facility] Medical CenterHemoglobin.gastrointestinal spec 1 Ql (Stl)11.7 g/dLLow12.0 - 16.0 g/dL [facility] Medical CenterInterpretation and review of laboratory resultsAbnormalCoshocton Regional Medical Center Lymphocytes/100 WBC (Bld)18 %15 - 40 %[facility]. [facility] HospitalH (RBC) [Entitic mass]24.5 pgLow26 - 34 pgSt. Vincent HospitalHC (RBC) [Mass/Vol]31.8 g/dL31 - 37 g/dLSt. Vincent HospitalV (RBC) [Entitic vol]76.9 fLLow80 - 100 fLCoshocton Regional Medical CenterMonocytes/100 WBC (Bld)4 %4 - 8 %[facility] CenterPlatelet distribution width (Bld) [Ratio]16.8 %High 12.1 - 15.2 %[facility] HealthPlatelets (Bld) [#/Vol]348 10*3/uLMartins Ferry Hospital HealthRBC (Bld) [#/Vol]4.78 10*6/uL4.0 - 5.2 m/uLMartins Ferry Hospital HealthSegmented neutrophils/100 WBC (Bld)71 %47 - 75 %[facility] Medical CenterSegs Absolute8.20HighCoshocton Regional Medical CenterWBC (Bld) [#/Vol] 11.5 10*3/uLHighBrown Memorial Hospital HealthComprehensive Metabolic Panelon 91-36-6131Wvtqatu [Mass/Vol]3.9 g/dL3.5 - 5.2 g/dLMercy HealthALP (Bld) [Catalytic activity/Vol]95 U/L35 - 104 U/LMercy HealthALT [Catalytic activity/Vol]12 U/L5 - 33 U/LMercy HealthAnion gap [Moles/Vol]13 mmol/L9 - 17 mmol/LMercy HealthAST [Catalytic activity/Vol]14 U/L<32Mercy HealthBilirubin [Mass/Vol]0.23 mg/dLLow0.30 - 1.20 mg/dLMercy HealthCalcium [Mass/Vol]9.3 mg/dL 8.6 - 10.4 mg/dLMercy HealthChloride [Moles/Vol]99 mmol/L98 - 107 mmol/LMercy HealthCO2 [Moles/Vol]24 mmol/L20 - 31 mmol/LMercy HealthCreatinine [Mass/Vol] 0.64 mg/dL0.50 - 0.90 mg/dLMercy HealthFree PSA/Total PSA [Mass fraction]7.4 g/dL6.4 - 8.3 g/dLMercy HealthGFR >60>60 mL/minMercy HealthGFR Non->60>60 mL/minMercy HealthGFR/1.73 sq M.predicted MDRD (S/P/Bld) [Vol rate/Area][facility] CenterComment on above:Average GFR for 40-49 years old: 99 mL/min/1.73sq m Chronic Kidney Disease: <60 mL/min/1.73sq m Kidney failure: <15 mL/min/1.73sq m eGFR calculated using average adult body mass. Additional eGFR calculator available at: http://www.Genemation.Slidely/multiple_crcl_2012.htm Glucose [Mass/Vol]130 mg/sSWtcw95 - 99 mg/dLSelect Medical Specialty Hospital - Akroncy HealthInterpretation and review of laboratory resultsAbnormalMer HealthPotassium [Moles/Vol]4.1 mmol/L 3.7 - 5.3 mmol/LMercy HealthSodium [Moles/Vol]136 mmol/L135 - 144 mmol/LMercy HealthUrea nitrogen (BldV) [Mass/Vol]8 mg/dL6 - 20 mg/dLMercy HealthUrea nitrogen/Creatinine (Bld) [Mass ratio]13MerCounts include [facility] beds at the [facility] HealthHepatitis C Antibodyon 25-89-5586Ccvgoiydc C AbNon-ReactiveNONREACTIVEMartins Ferry Hospital HealthComment on above: The hepatitis C procedure used [...] recommended by ordering HCV RNA by PCR. Mercy HealthIronon 24-20-9276Cyjnhuvzmxdtac and review of laboratory results AbnormalMer HealthIron [Mass/Vol]25 ug/dLLow37 - 145 ug/dLGrant Regional Health CenterLipid Panelon 25-70-4308Biizpjjsqap [Mass/Vol]167 mg/dL<200Mer Health Comment on above: Cholesterol Guidelines: <200 Desirable 200-240 Borderline >240 Undesirable Cholesterol in HDL [Mass/Vol]36 mg/dLLow>40MerEastern State HospitalComment on above: HDL Guidelines: <40 Undesirable 40-59 Borderline >59 Desirable Cholesterol in LDL [Mass/Vol]100 mg/dL0 - 130 mg/dLCoshocton Regional Medical CenterComment on above: LDL Guidelines: <100 Desirable 100-129 Near to/above Desirable 130-159 Borderline >159 Undesirable Direct (measured) LDL and calculated LDL are not interchangeable tests. Cholesterol.total/Cholesterol in HDL [Mass ratio]4.6 {ratio}<5Mer Health Interpretation and review of laboratory resultsAbnormProMedica Flower HospitalTriglyceride [Mass/Vol]157 mg/dLHigh<150[facility] CenterComment on above: Triglyceride Guidelines: <150 Desirable 150-199 Borderline 200-499 High >499 Very high Based on AHA Guidelines for fasting triglyceride, February 2012. [facility] CenterMicroalbumin, Uron 37-05-7585Xlgajgx/Creatinine DL <= 20 mg/L (24H U) [Mass ratio]<12<21 mg/LMercy HealthAlbumin/Creatinine DL <= 20 mg/L (U) [Ratio]Can not be calculated<25 mcg/mg creatCoshocton Regional Medical CenterCreatinine [Mass/Vol] 261.8 mg/gIVihv51.0 - 217.0 mg/dLMartins Ferry Hospital HealthInterpretation and review of laboratory resultsAbnormalSelect Medical Specialty Hospital - Akroncy HealthMercy HealthPatient Fasting?on 09-18-2021 Patient Fasting?[facility] HospitalCoding Summary.on 53-67-4986Ouwosz Summary. CD:[id number] [id number] [file] cHNl (more content not included)...[facility]erry HospitalMRI Shoulder w/o Contrast Righton 40-33-9130JHU Shoulder w/o Contrast RightExam Date/Time: 05/02/2021 17:55 EST Reason for Exam: M75.41 M M54.10 Report IMPRESSION: MILD SUPRASPINATUS TENDINOSIS. EXAM: MRI Shoulder w/o Contrast Right HISTORY: Shoulder pain TECHNIQUE: Multiplanar multisequence MRI of the shoulder was performed without contrast. COMPARISON: Shoulder radiographs 08/29/2010 FINDINGS: Mild degenerative changes of the acromioclavicular joint without undersurface osteophyte formation. The acromion is slightly curved. Coracoclavicular ligament intact. No subacromial/subdeltoid bursal fluid or edema. The supraspinatus, infraspinatus, [...] Transcribed by: HAMLET Technologist: SALINA Technical Comments NoneNormalClinton Memorial HospitalConsent for Treatmenton 07-51-4661Dsayovt for [id number]#1.00CD:[address] [place], [place] [address]RAD - MRI Screening Formon 73-50-4201HXJ - MRI Screening [id number]#1.00CD:[address] [place], [place] [address]Physician Orderon 20-54-5238Rvmzfelot Order [id number]#1.00CD:[address] [place], [place] [address]Physician Orderon 16-09-4063Eqadrmcos Order [id number]#1.00CD:[address] [place], [place] [address]Pre-Certification Formon 50-01-5158Mjg-Certification Form [id number]#1.00CD:[address] [place], [place] [address]CB Auto DifferentialOrdered By: Zayra Sloan on 62-46-1297Hztnstxe Eos #0.50HighRockstar Solos Work Phone: absolute Immature GranulocyteNOT REPORTEDSelect Medical Specialty Hospital - AkronQuanTemplate Work Phone: absolute Lymph #1.90[facility] - AkronCoveroo Phone: absolute Meeker #0.70Select [facility] Special[facility] Hospital - AkronQuanTemplate Work Phone: basophils (Bld) [#/Vol]0.00 10*3/uLMerQuanTemplate Work Phone: basophils/100 WBC (Bld)0 %0 - 2 %[employer] Work Phone: differential TypeYESMercTizaro Work Phone: eosinophils/100 WBC (Bld)4 %0 - 5 %[facility] Phone: Hematocrit (Bld) [Volume fraction]34.8 %Low36 - 46 % [facility] Phone: Hemoglobin.gastrointestinal spec 1 Ql (Stl)10.9 g/dL Low12.0 - 16.0 g/dLSelect Medical Specialty Hospital - AkronCoveroo Phone: Immature GranulocytesNOT REPORTED0 %[facility] Phone: Interpretation and review of laboratory results AbnormalSelect Medical Specialty Hospital - AkronCoveroo Phone: lymphocytes/100 WBC (Bld)17 %15 - 40 %[facility] Phone: MCH (RBC) [Entitic mass]23.3 pgLow26 - 34 pgSelect Medical Specialty Hospital - AkronCoveroo Phone: MCHC (RBC) [Mass/Vol]31.4 g/dL31 - 37 g/dLSelect Medical Specialty Hospital - AkronCoveroo Phone: MCV (RBC) [Entitic vol]74.3 fLLow80 - 100 [facility] Medical CenterCoveroo Phone: Monocytes/100 WBC (Bld)6 %4 - 8 %[facility] Phone: NRBC AutomatedNOT REPORTEDper 100 WBCSelect Medical Specialty Hospital - AkronCoveroo Phone: platelet distribution width (Bld) [Ratio]18.5 %High 12.1 - 15.2 %[facility] Phone: platelet EstimateNOT REPORTEDSelect Medical Specialty Hospital - AkronCoveroo Phone: platelet mean volume (Bld) [Entitic vol]NOT REPORTED 6.0 - 12.0 fLJointly Health Phone: platelets (Bld) [#/Vol]341 10*3/uLSelect Medical Specialty Hospital - AkronCoveroo Phone: RBC (Bld) [#/Vol]4.68 10*6/uL4.0 - 5.2 m/Feidee Phone: RBC (Bld) [#/Vol]NOT REPORTEDSelect Medical Specialty Hospital - AkronCoveroo Phone: segmented neutrophils/100 WBC (Bld)73 %47 - 75 %[facility] [email or web address] Phone: segs Absolute8.30HighSelect Medical Specialty Hospital - AkronCoveroo Phone: WBC (Bld) [#/Vol]11.5 10*3/uLHighSelect Medical Specialty Hospital - AkronCoveroo Phone: WBC (Bld) [#/Vol]NOT REPORTEDSelect Medical Specialty Hospital - AkronCoveroo Phone: [facility] AkronCoveroo Phone: comprehensive Metabolic PanelOrdered By: Zayra Sloan on 02-06-1569Wbbjkei [Mass/Vol]3.9 g/dL3.5 - 5.2 g/dLSelect Medical Specialty Hospital - AkronCoveroo Phone: albumin/Globulin RatioNOT REPORTEDSelect Medical Specialty Hospital - AkronCoveroo Phone: aLP (Bld) [Catalytic activity/Vol]87 U/L35 - 104 U/L [facility] [email or web address] Phone: aLT [Catalytic activity/Vol]14 U/L5 - 33 U/LMselect [facility] Level Work Phone: anion gap [Moles/Vol]12 mmol/L9 - 17 mmol/LMselect [facility] Phone: aST [Catalytic activity/Vol]14 U/L<32Mer [facility] Phone: bilirubin [Mass/Vol]0.19 mg/dLLow0.30 - 1.20 mg/dL [facility] [email or web address] Phone: calcium [Mass/Vol]9.2 mg/dL8.6 - 10.4 mg/dLSelect Medical Specialty Hospital - AkronCoveroo Phone: chloride [Moles/Vol]101 mmol/L98 - 107 mmol/LMcoshocton regional medical [email or web address] Phone: cO2 [Moles/Vol]25 mmol/L20 - 31 mmol/LMercy Level Work Phone: creatinine [Mass/Vol]0.55 mg/dL0.50 - 0.90 mg/dLSelect Medical Specialty Hospital - AkronCoveroo Phone: Free PSA/Total PSA [Mass fraction]7.3 g/dL6.4 - 8.3 g/dLSelect Medical Specialty Hospital - AkronCoveroo Phone: GFR >60>60 mL/minSelect Medical Specialty Hospital - AkronCoveroo Phone: GFR Non->60>60 mL/minSelect Medical Specialty Hospital - AkronCoveroo Phone: GFR/1.73 sq M.predicted MDRD (S/P/Bld) [Vol rate/Area] [facility] [email or web address] Phone: comment on above:Average GFR for 40-49 years old: 99 mL/min/1.73sq m Chronic Kidney Disease: <60 mL/min/1.73sq m Kidney failure: <15 mL/min/1.73sq m eGFR calculated using average adult body mass. Additional eGFR calculator available at: http://www.LiveExercise/multiple_crcl_2012.htm GFR/1.73 sq M.predicted MDRD (S/P/Bld) [Vol rate/Area]NOT REPORTEDSelect Medical Specialty Hospital - AkronCoveroo Phone: Glucose [Mass/Vol]97 mg/dL70 - 99 mg/dLSelect Medical Specialty Hospital - AkronCoveroo Phone: Interpretation and review of laboratory results AbnormalSelect Medical Specialty Hospital - AkronCoveroo Phone: potassium [Moles/Vol]4.2 mmol/L3.7 - 5.3 mmol/LMselect [facility] Phone: sodium [Moles/Vol]138 mmol/L135 - 144 mmol/LMcoshocton regional medical centery [facility] Phone: Urea nitrogen (BldV) [Mass/Vol]10 mg/dL6 - 20 mg/dL [facility] [email or web address] Phone: Urea nitrogen/Creatinine (Bld) [Mass ratio]18[facility] AkronCoveroo Phone: [facility] AkronCoveroo Phone: FerritinOrdered By: Zayra Sloan on 04-02-2021 Dknrgpaj29 ug/L13 - 150 ug/LMercy Level Work Phone: Iron And TIBCOrdered By: Zayra Sloan on 04-02-2021 Interpretation and review of laboratory resultsAbnormalSelect Medical Specialty Hospital - AkronCoveroo Phone: Iron [Mass/Vol]20 ug/dLLow37 - 145 ug/dLSelect Medical Specialty Hospital - AkronCoveroo Phone: Iron Saturation7 %Low20 - 55 %[facility] Phone: TIBC303 ug/dL250 - 450 ug/dLSelect Medical Specialty Hospital - AkronCoveroo Phone: UIBC283 ug/dL112 - 347 ug/dLSelect Medical Specialty Hospital - AkronCoveroo Phone: No Panel InformationOrdered By: Zayra Sloan on 29-85-1750[facility] Work Phone: VC CONSULT FOLLOWUPon 14-32-6476TX CONSULT FOLLOWUP Patient: SARAH HARRIS Exam Date: 03/12/2021 : 1975 Gender:F Ordering : DR GLENN LOUISE M.D. Admission #: [id number] Family : Order #: [id number] CLICK HERE TO VIEW EXAM RADIOLOGY REPORT [...] by: Glenn Louise MD on 03/12/2021 at 09:28[facility] HospitalVC EXT VENOUS LT LIMITEDon 30-52-9104GH EXT VENOUS LT LIMITEDPatient: SARAH HARRIS Exam Date: 03/12/2021 : 1975 Gender:F Ordering : DR GLENN LOUISE M.D. Admission #: [id number] Family : Order #: [id number] CLICK HERE TO VIEW EXAM RADIOLOGY REPORT [...] by: Glenn Louise MD on 03/12/2021 at 09:26[facility] HospitalVC ENDOVENOUS ABL 1ST V LTon 25-57-5508QP ENDOVENOUS ABL 1ST V LTPatient: SARAH HARRIS Exam Date: 03/06/2021 : 1975 Gender:F Ordering : DR GLENN LOUISE M.D. Admission #: [id number] Family : Order #: [id number] CLICK HERE TO VIEW EXAM RADIOLOGY REPORT PROCEDURE: VEIN CENTER ENDOVENOUS ABLATION FIRST VEIN LEFT ANTERIOR ACCESSORY SAPHENOUS VEIN COMPARISON: None. INDICATIONS: Pain co-occurrent and due to varicose veins of bilateral legs I83.813 OPERATIVE REPORT: The risks and benefits of the procedure had been previously discussed, and were rediscussed at length. Informed written consent was obtained by and Elliot yost. Time out procedure was [...] by: Glenn Louise MD on 03/06/2021 at 09:15NLakeHealth TriPoint Medical CenterVC CONSULT FOLLOWUPon 26-13-8497BE CONSULT FOLLOWUPPatient: SARAH HARRIS Exam Date: 02/26/2021 : 1975 Gender:F Ordering : DR GLENN LOUISE M.D. Admission #: [id number] Family : Order #: [id number] CLICK HERE TO VIEW EXAM RADIOLOGY REPORT [...] MD on 02/26/2021 at 09:47 Approved by: Gelnn Louise MD on 02/26/2021 at 09:51[facility] HospitalVC EXT VENOUS RT LIMITEDon 68-52-3108KE EXT VENOUS RT LIMITEDPatient: SARAH HARRIS Exam Date: 02/26/2021 : 1975 Gender:F Ordering : DR GLENN LOUISE M.D. Admission #: [id number] Family : Order #: [id number] CLICK HERE TO VIEW EXAM RADIOLOGY REPORT [...] by: Glenn Louise MD on 02/26/2021 at 09:47[facility] HospitalVC ENDOVENOUS ABL 1ST V RTon 48-16-6800ZF ENDOVENOUS ABL 1ST V RTPatient: SARAH HARRIS Exam Date: 02/20/2021 : 1975 Gender:F Ordering : DR GLENN LOUISE M.D. Admission #: [id number] Family : Order #: [id number] CLICK HERE TO VIEW EXAM RADIOLOGY REPORT [...] by: Ana Elias M.D. on 02/20/2021 at 14:40[facility] HospitalVC COMP CONSULTATIONon 38-57-4175JV COMP CONSULTATIONPatient: SARAH HARRIS Exam Date: 01/23/2021 : 1975 Gender:F Ordering : PERI KEY Admission #: [id number] Family : Order #: [id number] CLICK HERE TO VIEW EXAM RADIOLOGY REPORT [...] likely arise from the multiple markedly dilated computer technologist veins.. PHYSICAL EXAM: The right leg demonstrates [...] accessory saphenous veins bilaterally. Laser therapy of computer technologist veins bilaterally. Microfoam chemical ablation of large extensive bilateral branch saphenous varicosities. 4. History of prior endovenous laser ablation of great saphenous vein bilaterally. Nurse notes, history and physical were reviewed and confirmed, see attached forms. The nurse was present throughout the physical exam and consultation Dictated by: Ana Elias M.D. on 01/23/2021 at 15:38 Approved by: Ana Elias M.D. on 01/23/2021 at 15:45[facility] HospitalVC VENOUS REFLUX [facility] 86-45-9383PL VENOUS REFLUX SOLOMON LMTPatient: SARAH HARRIS Exam Date: 01/23/2021 : 1975 Gender:F Ordering : PERI KEY Admission #: [id number] Family : DR GLENN LOUISE M.D. Order #: [id number] CLICK HERE TO VIEW EXAM RADIOLOGY REPORT [...] Normal Flow: Normal Preforator: Right mid calf computer technologist 4.8mm with 1.4s of reflux and 5.6mm [...] echogenic thrombus visualized. Compressibility: Normal Flow: Normal Swing Driver: Left mid medial computer technologist 6.0mm with 0.9s of reflux and proximal [...] saphenous varicosities bilaterally. 3. 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 4. Consultation for venous ablation is recommended. Dictated by: Ana Elias M.D. on 01/23/2021 at 14:56 Approved by: Ana Elias M.D. on 01/23/2021 at 14:58[facility] Auto DifferentialOrdered By: Zayra Sloan on 85-74-6353Zehkdfee Eos #0.50HighJointly Health Phone: absolute Immature GranulocyteNOT REPORTEDJointly Health Phone: absolute Lymph #2.60[facility] AkronCoveroo Phone: absolute [place] #0.80[facility] AkronCoveroo Phone: basophils (Bld) [#/Vol]0.10 10*3/uLJoint[facility] Health Phone: basophils/100 WBC (Bld)1 %0 - 2 %[facility] Phone: differential TypeNOT REPORTEDJoint[facility] Health Phone: eosinophils/100 WBC (Bld)4 %0 - 5 %[facility] Phone: Hematocrit (Bld) [Volume fraction]30.2 %Low36 - 46 % [facility] Phone: Hemoglobin.gastrointestinal spec 1 Ql (Stl)9.2 g/dLLow 12.0 - 16.0 g/dLJoint[facility] Health Phone: Immature GranulocytesNOT REPORTED0 %[facility] Phone: Interpretation and review of laboratory results AbnormalSelect Medical Specialty Hospital - AkronCoveroo Phone: lymphocytes/100 WBC (Bld)21 %15 - 40 %[facility] Phone: MCH (RBC) [Entitic mass]20.3 pgLow26 - 34 pgSelect Medical Specialty Hospital - AkronCoveroo Phone: MCHC (RBC) [Mass/Vol]30.5 g/dLLow31 - 37 g/dLSelect Medical Specialty Hospital - AkronCoveroo Phone: MCV (RBC) [Entitic vol]66.5 fLLow80 - 100 [facility] CenterCoveroo Phone: Monocytes/100 WBC (Bld)6 %4 - 8 %[facility] Phone: Morphology Cole (Bld) [Interp]MODERATE ANISOCYTOSIS [facility] [email or web address] Phone: Morphology Cole (Bld) [Interp]MODERATE MICROCYTOSIS [facility] Phone: NRBC AutomatedNOT REPORTEDper 100 WBCSelect Medical Specialty Hospital - AkronCoveroo Phone: platelet distribution width (Bld) [Ratio]19.2 %High 12.1 - 15.2 %[facility] Phone: platelet EstimateNOT REPORTEDSelect Medical Specialty Hospital - AkronCoveroo Phone: platelet mean volume (Bld) [Entitic vol]NOT REPORTED 6.0 - 12.0 fLSelect Medical Specialty Hospital - AkronCoveroo Phone: platelets (Bld) [#/Vol]442 10*3/uLSelect Medical Specialty Hospital - AkronCoveroo Phone: RBC (Bld) [#/Vol]4.54 10*6/uL4.0 - 5.2 m/[place] CityCoveroo Phone: RBC (Bld) [#/Vol]NOT REPORTEDSelect Medical Specialty Hospital - AkronCoveroo Phone: Segmented neutrophils/100 WBC (Bld)68 %47 - 75 %[facility] Phone: segs Absolute8.60HighJointly Health Phone: WBC (Bld) [#/Vol]12.5 10*3/uLStillman InfirmaryCoveroo Phone: WBC (Bld) [#/Vol]NOT REPORTEDSelect Medical Specialty Hospital - AkronCoveroo Phone: [facility] AkronCoveroo Phone: Iron And TIBCOrdered By: Zayra Sloan on 11-21-2020 Interpretation and review of laboratory resultsAbnormalJointly Health Phone: Iron [Mass/Vol]19 ug/dLLow37 - 145 ug/dLSelect Medical Specialty Hospital - AkronCoveroo Phone: Iron Saturation6 %Low20 - 55 %[facility] Phone: TIBC343 ug/dL250 - 450 ug/dLSelect Medical Specialty Hospital - AkronCoveroo Phone: UIBC324 ug/dL112 - 347 ug/dLSelect Medical Specialty Hospital - AkronCoveroo Phone: [facility] AkronCoveroo Phone: [phone]-[id number] 01-72-5183RSBB-CoV-2, RapidNot DetectedNot [facility] GardenChemiSense [facility] on above: Rapid NAAT: The specimen is [...] management decisions. Fact sheet for Healthcare Providers: https://www.fda.gov/media/892388/download Fact sheet for Patients: https://www.fda.gov/media/937125/download Methodology: Isothermal Nucleic Acid Amplification Source.THROATLouis Stokes Cleveland [facility] Center, KYGlucose, Whole Bloodon 18-64-3134Sswwssh [Mass/Vol]139 mg/oAUcup82 - 99 mg/dLLouis Stokes [facility], PROInterpretation and review of laboratory resultsAbnormalLouis Stokes [facility], KYHCG Qualitative, Serumon 86-80-2049tRY QualNegativeNEGATIVELouis Stokes [facility], KYComment on above: Specimens with hCG levels near the threshold of the test (25 mIU/mL) may give a negative or indeterminate result. In such cases, another test should be performed with a new specimen in 48-72 hours. If early is suspected clinically in this setting, correlation with quantitative serum b-hCG level is suggested. [employer] has confirmed the use of plasma for this test. This has not been cleared or approved by the U.S. Food and Drug Administration. The FDA has determined that such clearance is not necessary. Otheron 85-67-8969CYZH-CoV-2MercBroward Health Coral Springs, PROCOVID-19on 92-58-7768VZQF-CoV-2, RapidNot DetectedNot DetectedLouis Stokes Cleveland [facility] Center, KYComment on above: Rapid NAAT: The specimen is [...] management decisions. Fact sheet for Healthcare Providers: https://www.fda.gov/media/465359/download Fact sheet for Patients: https://www.fda.gov/media/627584/download Methodology: Isothermal Nucleic Acid Amplification Source.THROATLouis Stokes Cleveland [facility] Center, KYFL LESS THAN 1 HOURon 32-02-0860Jztxvkswp exam is complete. No Radiologist dictation. Please follow up with ordering provider. [facility], KYGlucose, Whole Bloodon 19-51-1288Ntqkqcp [Mass/Vol]119 mg/dL High65 - 99 mg/dLLouis Stokes [facility], KYInterpretation and review of laboratory resultsAbnormalLouis Stokes [facility], KYOtheron 03-66-7009JZLC-CoV-2MercBroward Health Coral Springs, KYCOVID-19on 78-94-8294MIFZ-CoV-2, RapidNot DetectedNot DetectedLouis Stokes [facility], KYComment on above: Rapid NAAT: The specimen is [...] management decisions. Fact sheet for Healthcare Providers: https://www.fda.gov/media/064643/download Fact sheet for Patients: https://www.fda.gov/media/283461/download Methodology: Isothermal Nucleic Acid Amplification Source.[facility], KYFL LESS THAN 1 HOURon 55-54-2848Racrzdjne exam is complete. No Radiologist dictation. Please follow up with ordering provider. [facility], PROHCG Qualitative, Serumon 02-29-7927yRW QualNegativeNEGATIVE [facility], KYComment on above:Specimens with hCG levels near the threshold of the test (25 mIU/mL) may give a negative or indeterminate result. In such cases, another test should be performed with a new specimen in 48-72 hours. If early is suspected clinically in this setting, correlation with quantitative serum b-hCG level is suggested. [employer] has confirmed the use of plasma for this test. This has not been cleared or approved by the U.S. Food and Drug Administration. The FDA has determined that such clearance is not necessary. Otheron 82-83-2096SYDK-CoV-2MHighland District Hospital, KYCOVID-19on 05-78-1607MWJA-CoV-2, RapidNot DetectedNot DetectedLouis Stokes [facility], PROComment on above: Rapid NAAT: The specimen is [...] management decisions. Fact sheet for Healthcare Providers: https://www.fda.gov/media/775616/download Fact sheet for Patients: https://www.fda.gov/media/255694/download Methodology: Isothermal Nucleic Acid Amplification Source.THROATLouis Stokes Cleveland [facility], KYFL LESS THAN 1 HOURon 27-43-2553Gymrlados exam is complete. No Radiologist dictation. Please follow up with ordering provider. [employer] [place], KYGlucose, Whole Bloodon 08-18-0276Oiohhns [Mass/Vol]117 mg/dL High65 - 99 mg/dLLouis Stokes [facility], PROInterpretation and review of laboratory resultsAbnormalSelect Medical Specialty Hospital - AkronQuanTemplateHCA MIDWEST DIVISION, KYOtheron 16-46-4507MNXR-CoV-2MHighland District Hospital, KYPregnancy, Urineon 83-24-2503Thsw HCG ( test) Ql (U)NegativeNEGATIVE [facility] LevelHCA MIDWEST DIVISION, KYMAM DIGITAL SCREEN W OR WO CAD BILATERALon 50-32-2529Curuqy mammogram. BI-RADS 1 - Negative, no evidence of malignancy. Normal interval followup in 12 months. OVERALL ASSESSMENT- NEGATIVE A letter of notification will be sent to the patient regarding the results.[employer] NMPROHISTORY: Screening. TECHNIQUE: Craniocaudal and mediolateral oblique views of the breasts were obtained with digital mammography and CAD. COMPARISON: 02/25/2018, 10/30/2016 FINDINGS: Breasts are predominantly fatty density. No dominant masses, suspicious calcifications, or areas of architectural distortion are seen.[facility] LevelHCA MIDWEST DIVISIONTrena Mhpn Incoming Radiant Results From [facility] - 11/16/2019 1:31 PM EDT HISTORY: Screening. [...] sent to the patient regarding the results. [employer] TherapeuticsPROGlucose, Whole BloodOrdered By: David Waters on 05-15-2019 Glucose [Mass/Vol]122 mg/rEDqwz43 - 99 mg/dLSelect Medical Specialty Hospital - AkronCoveroo Phone: Interpretation and review of laboratory results AbnormalSelect Medical Specialty Hospital - AkronCoveroo Phone: HCG Qualitative, SerumOrdered By: David Waters on 35-98-7427bPE QualNegativeNEGATIVESelect Medical Specialty Hospital - AkronCoveroo Phone: comment on above:Specimens with hCG levels near the threshold of the test (25 mIU/mL) may give a negative or indeterminate result. In such cases, another test should be performed with a new specimen in 48-72 hours. If early is suspected clinically in this setting, correlation with quantitative serum b-hCG level is suggested. [employer] has confirmed the use of plasma for this test. This has not been cleared or approved by the U.S. Food and Drug Administration. The FDA has determined that such clearance is not necessary. CBC Auto Differentialon 45-32-9949Axyqymtvi (Bld) [#/Vol]0.00 10*3/[facility], PROBasophils/100 WBC (Bld)0 %0 - 2 %[facility], MIDifferential TypeYESMHighland District Hospital, PROEosinophils (Bld) [#/Vol]0.40 10*3/[facility], PROEosinophils/100 WBC (Bld)5 %0 - 5 %[facility], MIErythrocyte distribution width (RBC) [Ratio]16.7 %High12.1 - 15.2 %[facility], [place] Hematocrit (Bld) [Volume fraction]35.8 %Low36 - 46 %[place] Hemoglobin (Bld) [Mass/Vol]11.3 g/dLLow12 - 16 g/dLAnn [place], [place] Interpretation and review of laboratory resultsAbnormalAnn [place] Lymphocytes (Bld) [#/Vol]1.50 10*3/[facility], PROLymphocytes/100 WBC (Bld)16 %15 - 40 %[facility], MIMCH (RBC) [Entitic mass]23.8 pgLow26 - 34 pgAnn [place], KYMCHC (RBC) [Mass/Vol]31.6 g/dL31 - 37 g/dLAnn [place], KYMCV (RBC) [Entitic vol]75.2 fLLow80 - 100 fLLouis Stokes [facility], PROMonocytes (Bld) [#/Vol]0.60 10*3/[facility], PROMonocytes/100 WBC (Bld)6 %4 - 8 % [facility], MIPlatelet mean volume (Bld) [Entitic vol]NOT REPORTED6 - 12 fLLouis Stokes [facility], MIPlatelets (Bld) [#/Vol]306 10*3/[facility], [place] Platelets (Bld) [#/Vol]NOT REPORTEDLouis [facility], MIRBC (Bld) [#/Vol]4.77 10*6/uL4 - 5.2 m/[facility], MIRBC morphology finding Nom (Bld)NOT REPORTED[place], KYSegmented neutrophils/100 WBC (Bld)73 %47 - 75 % [place], KYSegs Absolute7.30HighAnn [place], KYWBC (Bld) [#/Vol] 10.0 10*3/uLAnn [place], KYWBC (Bld) [#/Vol]NOT REPORTEDper 100 WBCAnn [place], KYWBC MorphologyNOT REPORTED[place], KYHemoglobin A1Con 53-83-1986Vpwdguo [Mass/Vol]160 mg/dLAnn [place], KYComment on above:The ADA and AACC recommend providing the estimated average glucose result to permit better patient understanding of their HBA1c result. HbA1c (Bld) [Mass fraction]7.2 %High4.8 - 5.9 %[place] Interpretation and review of laboratory resultsAbnormalAnn [place], KYLipid Panelon [id number] [Mass/Vol]156 mg/dL<200[place], KYComment on above: Cholesterol Guidelines: <200 Desirable 200-240 Borderline >240 Undesirable Cholesterol in HDL [Mass/Vol]43 mg/dL>40[place], KYComschoolcraft memorial hospital on above: HDL Guidelines: <40 Undesirable 40-59 Borderline >59 Desirable Cholesterol in LDL [Mass/Vol]84 mg/dL0 - 130 mg/dLAnn [place], KYComschoolcraft memorial hospital on above: LDL Guidelines: <100 Desirable 100-129 Near to/above Desirable 130-159 Borderline >159 Undesirable Direct (measured) LDL and calculated LDL are not interchangeable tests. Cholesterol in VLDL [Mass/Vol]NOT REPORTED1 - 30 mg/dLAnn [place], [place] Cholesterol.total/Cholesterol in HDL [Mass ratio]3.6 {ratio}<5[place], KYTriglyceride [Mass/Vol]146 mg/dL<150[place], KYComschoolcraft memorial hospital on above: Triglyceride Guidelines: <150 Desirable 150-199 Borderline 200-499 High >499 Very high Based on AHA Guidelines for fasting triglyceride, February 2012. Otheron [id number] granulocytes (Bld) [#/Vol]NOT REPORTED[place], KYPatient Fasting?on 51-25-6573Ulfatwx Fasting?yesLouis [facility] CenterPROTSH with Reflexon [id number] Qn2.43 m[IU]/LMercBroward Health Coral SpringsPROXR CHEST STANDARD (2 VW)on 74-45-2738Oplxahbs two-view chest.[facility] CenterPROEXAM: XR CHEST (2 VW) HISTORY: Reason for exam:->continued cough for 2 months with wheezing. COMP ARISON: Portable chest from 01/27/2014. TECHNIQUE: Frontal and lateral films are done of the chest. FINDINGS: Trachea, mediastinum and heart size are unremarkable. No effusion or nodule or pneumothorax or infiltrate is noted. Diaphragm and bony elements are intact.[facility] CenterPRORayray Hernandezpn Incoming Radiant Results From [facility] - 03/18/2019 12:02 PM EDT EXAM: XR CHEST (2 VW) HISTORY: Reason for exam:->continued cough for 2 months with wheezing. COMPARISON: Portable chest from 01/27/2014. TECHNIQUE: Frontal and lateral films are done of the chest. FINDINGS: Trachea, mediastinum and heart size are unremarkable. No effusion or nodule or pneumothorax or infiltrate is noted. Diaphragm and bony elements are intact. IMPRESSION: Nonacute two-view chest. [facility] CenterPRO Vital Signs Date TimeVital SignValuePerforming BxzmxgxbnVsbedryl44-34-5072 14:03-0500Body prpegx645.6 Nelihrradha Sun MD Work Phone: [facility] CenterTzxzpt23-74-4607 14:03-0500Body mass index (BMI) [Ratio]52.29 kg/n5JlebdbooqezClemencia Sun MD Work Phone: [facility] CenterMdqpnd84-90-4005 14:03-0500Body usvrptaigio02.6 [degF]Clemencia Sun MD Work Phone: [facility] CenterVilswi64-30-6701 14:03-0500Body gvrmle051.97 kgClemencia Sun MD Work Phone: [facility] CenterYpgwse23-15-8321 14:03-0500Diastolic blood mgulaxrp82 mm[Hg]Clemencia Sun MD Work Phone: [facility] [employer]01-19-2025 14:03-0500Heart rate92 /Demetria Sun MD Work Phone: [facility] [employer]01-19-2025 14:03-0500 Respiratory rate18 /Demetria Sun MD Work Phone: [facility] [employer]01-19-2025 14:03-9013YrI6% (BldA) [Mass fraction]99 %Clemencia Sun MD Work Phone: [facility] [employer]01-19-2025 14:03-0500Systolic blood cjryxbeh226 mm[Hg]Clemencia Sun MD Work Phone: [facility] [facility] CenterTizaroTtasqm54-77-9139 12:26-0500Body .6 cmCcadence Sun MD Work Phone: [facility] CenterTizaroKuyxfy70-22-6818 12:26-0500Body mass index (BMI) [Ratio]52.46 kg/e5HooabhojzgvClemencia Sun MD Work Phone: [facility] [employer]12-31-2024 12:26-0500Body cuomogzvnxj51.29 [degF]Clemencia Sun MD Work Phone: [facility] [address] [facility] CenterTizaroWkvibr09-34-8046 12:26-0500Body tlnead733.42 kgClemencia Sun MD Work Phone: [facility] [facility] CenterTizaroRshqfw90-47-3296 12:26-0500Diastolic blood vrsxtlye036 mm[Hg]Clemencia Sun MD Work Phone: [facility] [employer]12-31-2024 12:26-0500Heart rate98 /Demetria Sun MD Work Phone: [facility] [employer]12-31-2024 12:26-0500 Respiratory rate18 /Demetria Sun MD Work Phone: [facility] [employer]12-31-2024 12:26-6974MpH8% (BldA) [Mass fraction]96 %Clemencia Sun MD Work Phone: [phone] [employer]12-31-2024 12:26-0500Systolic blood bsfavzzc300 mm[Hg]Clemencia Sun MD Work Phone: [phone] [employer]12-13-2024 15:00-0500Diastolic blood aiopjkss38 mm[Hg]Clemencia Sun MD Work Phone: [phone] [employer]12-13-2024 15:00-0500Systolic blood zfltemiv278 mm[Hg]Clemencia Sun MD Work Phone: [facility] [employer]12-13-2024 14:55-0500Body tyulxe703.6 cmChrradha Sun MD Work Phone: [facility] [employer]12-13-2024 14:55-0500Body mass index (BMI) [Ratio]53.91 kg/q4CycnfpsqzruClemencia Sun MD Work Phone: [facility] [employer]12-13-2024 14:55-0500Body axgybrpwizc51.2 [degF]Clemencia Sun MD Work Phone: [facility] [employer]12-13-2024 14:55-0500Body ayrkyl498.5 kgClemencia Sun MD Work Phone: [facility] [employer]12-13-2024 14:55-0500Heart rate82 /minClemencia Sun MD Work Phone: [facility] [employer]12-13-2024 14:55-0500 Respiratory rate20 /Demetria Sun MD Work Phone: [phone] [employer]12-13-2024 14:55-3348WpF7% (BldA) [Mass fraction]99 %Clemencia Sun MD Work Phone: [phone] [employer]10-18-2024 15:32-0400Body omuvvw536.6 cmMary[facility] HospitalCluster [facility]10-18-2024 15:32-0400Body mass index (BMI) [Ratio]53.91 kg/m2Mth [facility]10-18-2024 15:32-0400Body wxmzyt149.5 kgMth [facility]07-26-2024 10:22-0400Body vsskvhfriqf98.29 [degF]Zayra Sloan DO Work Phone: [facility]07-26-2024 10:22-0400Diastolic blood vtbkgpaq29 mm[Hg]Zayra Sloan DO Work Phone: [facility]07-26-2024 10:22-0400Heart rate94 /minZayra Sloan DO Work Phone: b[facility]07-26-2024 10:22-0400 Respiratory rate16 /Hiram Sloan DO Work Phone: [facility]07-26-2024 10:22-1744PwZ7% (BldA) [Mass fraction]97 %Zayra Sloan DO Work Phone: [facility]07-26-2024 10:22-0400Systolic blood fnydaudd014 mm[Hg]Zayra Sloan DO Work Phone: [facility]02-02-2024 09:50-0500Diastolic blood nlrovbgz30 mm[Hg]Elliot Zheng MD Work Phone: [facility]02-02-2024 09:50-0500Heart rate85 /Nory Zheng MD Work Phone: [facility] Level Moqeml39-18-8749 09:50-9816OmR0% (BldA) [Mass fraction]93 %Elliot Zheng MD Work Phone: [facility]02-02-2024 09:50-0500Systolic blood mm[Hg]Elliot Zheng MD Work Phone: 1(419)[address] [place], [place] 1361702-02-2024 09:37-0500Body ufobwlzcqhv80 [degF]Ellito Zheng MD Work Phone: 1(428)[facility] [place], [place] 4152702-02-2024 09:37-0500Respiratory rate13 /Nory Zheng MD Work Phone: 1(376)[address]02-02-2024 08:35-0500Body height 167.6 cmElliot Zheng MD Work Phone: 1(883)[address]02-02-2024 08:35-0500Body mass index (BMI) [Ratio]59.24 kg/m2Elliot Zheng MD Work Phone: 1(394)[address] [place], [place] 1361702-02-2024 08:35-0500Body weight 166.47 kgElliot Zheng MD Work Phone: 1(292)[address] [place], [place] 1361709-14-2023 15:30-0400Heart rate91 /Nory Zheng MD Work Phone: 1(343)[address] [place], [place] 1361709-14-2023 15:30-5976DxJ0% (BldA) [Mass fraction]93 %Elliot Zheng MD Work Phone: 1(368)[address]09-14-2023 15:20-0400Diastolic blood qnztmtow45 mm[Hg]Elliot Zheng MD Work Phone: 1(616)[address]09-14-2023 15:20-0400Respiratory rate16 /Nory Zheng MD Work Phone: 1(877)[address] [place], [place] 1361709-14-2023 15:20-0400Systolic blood kubimnvg672 mm[Hg]Elliot Zheng MD Work Phone: 1(842)[address] [place], [place] 1361709-14-2023 15:00-0400Body iufuncegbwx70.3 [degF]Elliot Zheng MD Work Phone: 1(929)[address] [place], [place] 1361709-14-2023 08:47-0400Body height 167.6 cmElliot Zheng MD Work Phone: 1([phone])[address]09-14-2023 08:47-0400Body mass index (BMI) [Ratio]59.24 kg/m2Elliot Zheng MD Work Phone: [facility]09-14-2023 08:47-0400Body weight 166.47 kgElliot Zheng MD Work Phone: [facility]07-18-2023 13:27-0400Body height 167.6 Bree Hemphill MD Work Phone: [phone])[address]07-18-2023 13:27-0400Body mass index (BMI) [Ratio]59.24 kg/m2Keila Hemphill MD Work Phone: [phone]07-18-2023 13:27-0400Body weight 166.47 kgKeila Hemphill MD Work Phone: 1(863)[address]05-26-2023 12:42-0400Body height 167.6 Bree Hemphill MD Work Phone: 1(588)[address]05-26-2023 12:42-0400Body mass index (BMI) [Ratio]59.39 kg/m2Keila Hemphill MD Work Phone: 1(420)[address]05-26-2023 12:42-0400Body weight 166.9 kgKeila Hemphill MD Work Phone: 1(077)[address]04-26-2023 13:06-0400Diastolic blood nevadfxw19 mm[Hg]Kelley Shannon DO Work Phone: [facility]04-26-2023 13:06-0400Systolic blood twomeyly256 mm[Hg]Kelley Shannon DO Work Phone: [facility]04-26-2023 11:23-5898KmK2% (BldA) [Mass fraction]92 %Kelley Shannon DO Work Phone: [facility]04-26-2023 11:15-0400Heart ctfb225 /minRdia Shannon DO Work Phone: [facility]04-26-2023 10:12-0400Body qszgwubxsjx99.39 [degF]Kelley Shannon DO Work Phone: [facility]04-26-2023 10:12-0400 Respiratory rate18 /minJaveria Shannon DO Work Phone: [facility]04-12-2023 10:13-0400 Respiratory rate16 /minChristopher Beth Gambino MD Work Phone: [facility]04-12-2023 08:46-0400Body pveoqeynzkt31.29 [degF]Clemencia Gambino MD Work Phone: [facility]04-12-2023 08:46-0400Diastolic blood mm[Hg]Clemencia Gambino MD Work Phone: [facility]04-12-2023 08:46-0400Heart rate78 /Demetria Gambino MD Work Phone: [facility]04-12-2023 08:46-1754CdD6% (BldA) [Mass fraction]95 %Clemencia Gambino MD Work Phone: [facility]04-12-2023 08:46-0400Systolic blood ewuhrbyc463 mm[Hg]Clemencia Gambino MD Work Phone: [facility]04-11-2023 06:34-0400Body rcuihg437.6 Alanna Gambino MD Work Phone: [facility]04-11-2023 06:34-0400Body mass index (BMI) [Ratio]59.4 kg/i5SsapgoemxvuClemencia Gambino MD Work Phone: [facility]04-11-2023 06:34-0400Body .92 kgChhue Gambino MD Work Phone: [facility]03-17-2023 12:51-0400Body wgxydu097.6 Bree Hemphill MD Work Phone: 1(231)[address] [place], [place] 6202503-17-2023 12:51-0400Body mass index (BMI) [Ratio]59.4 kg/m2Keila Hemphill MD Work Phone: 1(274)[address] [place], [place] 6202503-17-2023 12:51-0400Body weight 166.92 kgKeila Hemphill MD Work Phone: 1(064)[address] [place], [place] 6202503-16-2023 09:30-0400Body height 167.6 Bree Hemphill MD Work Phone: 1(651)[address] [place], [place] 6202503-16-2023 09:30-0400Body mass index (BMI) [Ratio]59.4 kg/m2Keila Hemphill MD Work Phone: 1(500)[address] [place], [place] 6202503-16-2023 09:30-0400Body weight 166.92 kgKeila Hemphill MD Work Phone: 1(889)[address] [place], [place] 6202501-24-2023 07:40-0500Body height 167.6 Bree Hemphill MD Work Phone: 1(519)[address] [place], [place] 6202501-24-2023 07:40-0500Body mass index (BMI) [Ratio]59.4 kg/m2Keila Hemphill MD Work Phone: 1(517)[address] [place], [place] 6202501-24-2023 07:40-0500Body weight 166.92 kgKeila Hemphill MD Work Phone: 1(999)[address] [place], [place] 6202507-23-2022 12:37-0400Body mlxfpirjhpq66.71 [degF]Adrien [facility]07-23-2022 12:37-0400 Diastolic blood ytywhxzp31 mm[Hg]Adrien [facility]07-23-2022 12:37-0400Heart rate88 /Ric [facility]07-23-2022 12:37-0400Respiratory rate18 /minSean Ray [facility]DB[facility]07-23-2022 12:37-6928UdP8% (BldA) [Mass fraction]97 %Adriennicholas Somers [facility] 12-20-2021 12:37-0400Systolic blood tahxtnqn609 mm[Hg]Adrien Somers [facility]07-13-2022 13:45-0400Body hynlgupxbbx62.2 [degF]Frank Pickering MD Work Phone: [facility]07-13-2022 13:45-0400Diastolic blood wayobrbu92 mm[Hg]Frank Pickering MD Work Phone: [facility]07-13-2022 13:45-0400Heart rate78 /minFrank Pickering MD Work Phone: [facility]07-13-2022 13:45-0400 Respiratory rate18 /minFrank Pickering MD Work Phone: [facility]07-13-2022 13:45-9503ZtI1% (BldA) [Mass fraction]95 %Frank Pickering MD Work Phone: [facility]07-13-2022 13:45-0400Systolic blood zfkrphiy090 mm[Hg]Frank Pickering MD Work Phone: [facility]07-13-2022 09:41-0400Body aebnga405.6 cmFrank Pickering MD Work Phone: [facility]07-13-2022 09:41-0400Body mass index (BMI) [Ratio]57.14 kg/j1ZpteamFrank Pickering MD Work Phone: [place] [address]-13-2022 09:41-0400Body .57 kgFrank Pickering MD Work Phone: [facility]07-07-2022 10:31-0400Body ajxztb122.6 cmFrank Pickering MD Work Phone: [place] [address]-07-2022 10:31-0400Body mass index (BMI) [Ratio]56.78 kg/g7FzufsfFrank Pickering MD Work Phone: [facility]07-07-2022 10:31-0400Body aksbjgeyfzg97.6 [degF]Frank Pickering MD Work Phone: [facility]07-07-2022 10:31-0400Body qoyhic527.57 kgFrank Pickering MD Work Phone: [facility]07-07-2022 10:31-0400Diastolic blood mgwoyucn352 mm[Hg]Frank Pickering MD Work Phone: [facility]ENTERComschoolcraft memorial hospital on above:Patient states she does not take BP med until lunchtime.12-04-2021 10:31-0400Heart rate 95 /minFrank Pickering MD Work Phone: [facility]07-07-2022 10:31-0400 Respiratory rate22 /minFrank Pickering MD Work Phone: [facility]07-07-2022 10:31-3668AfU6% (BldA) [Mass fraction]98 %Frank Pickering MD Work Phone: [facility]07-07-2022 10:31-0400Systolic blood vomcmzll766 mm[Hg]Frank Pickering MD Work Phone: [facility]OSPITALPennantSELECT MEDICAL [facility] ED[facility] SHAWComschoolcraft memorial hospital on above:Patient states she does not take BP med until lunchtime.06-01-2021 14:32-0500Diastolic blood cxusdskg191 mm[Hg]Lorie Win MD Work Phone: [facility] Kszmwv75-77-3432 14:32-0500Systolic blood niycuyom626 mm[Hg]Lorie Win MD Work Phone: [facility] AkronQuanTemplateMuowue98-91-7631 14:30-0500Body mass index (BMI) [Ratio]58.68 kg/c1WlnxlvcLorie Win MD Work Phone: 1(082)395-[address] [place], [place] 6020301-02-2022 14:30-0500Body ifncgawtcge01.71 [degF]Lorie Win MD Work Phone: 1(401)484-[address] [place], [place] [address]Yshinv13-41-6020 14:30-0500Body asrdeq031.42 kg Lorie Wni MD Work Phone: 1(147)991-[address] [place], [place] 6020301-02-2022 14:30-0500Heart rpcp919 /min Lorie Win MD Work Phone: 1(021)707-[address] [place], [place] 6020301-02-2022 14:30-0500Respiratory rate18 /minLorie Win MD Work Phone: 1([phone] [place], [place] 6020301-02-2022 14:30-2079PbD6% (BldA) [Mass fraction]97 %Lorie Win MD Work Phone: 1(071)413-[address] [place], [place] 6020312-24-2020 10:17-0500BP Btjnjrimn42 mm[Hg] [facility], BR90-80-2729 10:17-0500BP Jjgufsro596 mm[Hg] [facility], RP80-25-0608 10:17-0500Pulse (Heart Rate)87 /min [facility] NA00-33-9849 10:17-0500Pulse Nsbwodeo04 %[facility], ND81-66-1860 10:17-0500Respiratory Rate18 /minEdTrinity Health [facility], ZH37-19-2082 09:46-0500Body Cyjghqtpkbb82.59 [degF] [facility], DE13-15-4815 06:55-0500BMI (Body Mass Index) 65.37 kg/v9ZqauvMcKenzie Regional Hospital, OD90-51-2832 06:55-0500Body weight 183.71 kgRy[place], [place]12-24-2020 06:55-9004Cslpdb449.6 cm [facility], SY47-14-4896 13:17-0500BP Qukqihsez24 mm[Hg] [facility], OY74-63-2182 13:17-0500BP Heuhwwcv267 mm[Hg] [facility], FU21-72-0129 13:17-0500Pulse (Heart Rate)89 /min [facility], OU01-55-9731 13:17-0500Pulse Ohpjdijw21 %[facility], HZ55-18-7488 13:17-0500Respiratory Rate16 /[facility], QJ27-27-1248 12:51-0500Body Utekyvdcqdv52.91 [degF] [facility], FU59-77-8479 11:15-0500BMI (Body Mass Index) 65.55 kg/p8HflofMcKenzie Regional Hospital, YV36-93-9918 11:15-0500Body weight 184.21 kgMcKenzie Regional Hospital, IP01-53-7902 11:15-0984Axtdju828.6 cm [facility], NC94-49-3190 15:43-0500BP Qzmtipgwi89 mm[Hg] [facility], VQ06-51-6399 15:43-0500BP Uueglzcy923 mm[Hg] [facility], RC60-15-8022 15:43-0500Pulse (Heart Rate)100 /[facility], VT65-23-1951 15:43-0500Pulse Amyfiraj65 % [facility], PM44-87-2560 15:43-0500Respiratory Rate18 /min [facility], FK15-31-6943 15:10-0500Body Xkrbqypqzee67.4 [degF][facility], UK65-41-8135 12:05-0500BMI (Body Mass Index)64.32 kg/f1EiodoMcKenzie Regional Hospital, WB29-34-2804 12:05-0500Body .76 kgMcKenzie Regional Hospital, ZV22-71-0194 12:05-0500Height 167.6 [facility], BN91-93-1029 14:44-0400BP Esqqdqdyr934 mm[Hg][facility], FE77-47-7961 14:44-0400BP Aqzjfoka935 mm[Hg][facility], TD06-26-0600 14:44-0400Pulse (Heart Rate) 95 /[facility], FU07-22-9766 14:42-0400Pulse Lxzygguo48 % [facility], LT10-89-2823 14:42-0400Respiratory Rate20 /min [facility], WC96-90-8375 14:07-0400Body Gewyomvdwjd44 [degF] [facility], NQ10-03-1369 12:34-0400BMI (Body Mass Index) 65.69 kg/s9ZbepfMcKenzie Regional Hospital, OU41-84-9314 12:34-0400Body weight 184.61 kgMcKenzie Regional Hospital, JQ58-96-7053 12:34-6801Rjxgnm772.6 cm [facility], NX27-10-9465 18:08-0400BP Qbxriyjiu00 mm[Hg] [facility], XJ69-58-9357 18:08-0400BP Cgiuziyn957 mm[Hg] [facility], XS76-16-7458 18:08-0400Pulse Kulsbctl78 % [facility], MS54-36-1370 18:02-0400Pulse (Heart Rate)98 /minNorthern Light A.[facility]. [facility], QY39-33-0962 18:02-0400Respiratory Rate18 /minNorthern Light A.[facility]. [facility], DE46-71-2267 17:06-0400BMI (Body Mass Index)64.26 kg/a6LsjmqfwxuicNorthern Light A.[facility]. [facility], CN59-48-4962 17:06-0400Body Gmgaahgohmx24.19 [degF][facility], CD40-25-1639 17:06-0400Body pyeeyi550.58 kgChNorthern Light [facility] Hospital, CZ55-14-7409 10:13-0500Diastolic blood izyqtgiu51 mm[Hg]David Waters MD Work Phone: [facility] Level Work Phone: 1(734)353-852207-182182-15493185-19-0296 10:13-0500Heart rate87 /Pattie Waters MD Work Phone: [facility] AkronQuanTemplate Work Phone: 1(946) 429-464812-16-2019 10:130500Respiratory rate16 /Pattie Waters MD Work Phone: [facility]ronQuanTemplate Work Phone: 1(602) 690-387212-16-2019 10:132757VdX2% (BldA) [Mass fraction]94 % David Waters MD Work Phone: [facility] AkronQuanTemplate Work Phone: 1(394) 482-519512-16-2019 10:130500Systolic blood kwfahrfh512 mm[Hg] David Waters MD Work Phone: [facility]ronQuanTemplate Work Phone: 1(549) 206-499212-16-2019 09:42-0500Body jmiencwhuep62.81 [degF]David Waters MD Work Phone: [facility]ronQuanTemplate Work Phone: 1(219) 494-799112-16-2019 07:36-0500Body fwzeoc598.6 Yesica Waters MD Work Phone: [facility]ronQuanTemplate Work Phone: 1(455) 406-825612-16-2019 07:36-0500Body mass index (BMI) [Ratio] 62.46 kg/m2David Waters MD Work Phone: [facility] AkronQuanTemplate Work Phone: 1(180) 268-710212-16-2019 07:36-0500Body .54 kgDavid Waters MD Work Phone: [facility] Work Phone: [phone]) [phone] 12:54-0500Pulse Anxuhwpb86 %[facility] [place], [place] Encounters Encounter DateEncounter TypeCare ProviderFacilityStart: 12-25-2024 End: 76-56-2978watkylyiobTHXRRCTGSumma Health W[facility]sworth [facility]ittman Medical Centertart: 12-17-2024 End: 57-87-9577nhfyzdwwrvSSISDUHQSumma Health Wadsworth - [facility]itt[facility] Medical Centertart: 12-14-2024 End: 95-81-2557wtuigjbwlvIKTMXXCHSumma Health Wadsworth - Ritt[facility] Medical Centertart: 12-11-2024 End: 90-10-4283mijgzvsgudFPXLTCMAKindred Healthcaretart: 12-11-2024 End: 39-34-5309Fvuyphrwaj hospital visit by physicianOhio[facility] MRIComment on above:Chronic pain syndromeStart: 20-35-3353yxhieoiuwoMercy Health St. Joseph Warren Hospitaltart: 11-21-2024 End: 11-89-5639hqztfwsptqSYSXCUVVSumma Health Wadsworth - Rittman Medical Centertart: 11-17-2024 End: 78-53-6579vrquvswrasLCTCVPH L [facility] Centertart: 11-17-2024 End: 37-52-4009Kkzwithefx hospital visit by Michael Sloan DO Work Phone: mWHZ LaboratoryComment on above:Type 2 diabetes mellitus without complication, without long-term current use of insulin (HCC) Start: 10-13-2024 End: 67-50-1785lvhvwexgedPNAWMHZQSumma Health Wadsworth - Ritt[facility] Medical Centertart: 10-13-2024 End: 10-61-7420safjddlutvZHUWWIGQSumma Health Wadsworth - [facility] Medical Centertart: 09-29-2024 End: 40-88-2343nqjzlkznfoCiofwizBimal Rodriguez MDFacility:[facility] HospitalStart: 08-28-2024 End: 11-52-3769oqhngpncqqRJEAK J MATHEWSMercy Mi Wuk Village HospitalStart: 08-28-2024 End: 68-02-2540Lrgrmpgouo hospital visit by Steve Robles [facility] RadiologyComment on above:Pain, joint, shoulder, right Start: 08-07-2024 End: 71-25-6111ezkwufcrivUlyykiu Vwilfrido Rodriguez MDFacility:PM Екатерина Start: 06-18-2024 End: 24-01-9749Vudjlohlu department patient visitChhue Sun MD Work Phone: [place] [facility] DepartmentComment on above: Left knee pain, unspecified chronicity (Primary Dx)Start: 53-83-4213xatrcgusjm INC., [facility] HospitalStart: 06-01-2024 End: 11-51-5351gnchgumrpuIKKQKB F [facility] HospitalStart: 06-01-2024 End: 30-59-4346Adwwaojdbo hospital visit by Luke Ahumada PTMGil Physical TherapyComment on above:ArrivedStart: 05-30-2024 End: 38-89-7918Akcvrvbkj department patient visitChhue Sun MD Work Phone: [facility] Emergency DepartmentComment on above: Greater trochanteric bursitis of right hip (Primary Dx); Accidental fall, initial encounterStart: 05-29-2024 End: 66-06-9021maxfwiqzlkCFABWBDRuth [facility] HospitalStart: 05-29-2024 End: 76-65-6340Hxwclkdigc hospital visit by Luke Ahumada PTMGil Physical TherapyComment on above:ArrivedStart: 05-18-2024 End: 90-94-9379ldgawqwhheBQQEKRE L YONLBlanca [facility] HospitalStart: 05-18-2024 End: 82-42-0947Ksfyzbjrot hospital visit by Luke Ahumada PTMWHGil Physical TherapyComment on above:ArrivedStart: 05-15-2024 End: 06-58-1730snlcglddcvWFBIHDB L SAPNASouthwest General Health Centertart: 05-15-2024 End: 53-51-7301Sbmucgwsqz hospital visit by Luke Ahumada PTMWHGil Physical TherapyComment on above:ArrivedStart: 05-12-2024 End: 99-40-7891Tyjlcfalu department patient visitChhue Sun MD Work Phone: [facility] Emergency DepartmentComment on above: Rash and other nonspecific skin eruption (Primary Dx)Start: 05-11-2024 End: 97-31-8347Jlipvzzaky hospital visit by Luke Ahumada PTMWHGil Physical TherapyStart: 05-09-2024 End: 94-09-9930zosvrxwcsgQYOULPHelen [facility] Hospitaltart: 05-09-2024 End: 88-82-2639Chfwgjtfcf hospital visit by Luke Helms- Zita PTMWHZ Physical TherapyComment on above:ArrivedStart: 05-04-2024 End: 12-88-0719Fnbtzueqsb hospital visit by Luke Helms- Zita PTMWHGil Physical TherapyStart: 05-01-2024 End: 64-84-3721cptjnkbiorTGKRCEHelen [facility] Hospitaltart: 05-01-2024 End: 40-54-0626Qkkgbbiaxl hospital visit by Luke Ahumada PTMWHGil Physical TherapyComment on above:ArrivedStart: 04-25-2024 End: 31-31-1500ieaimfinuoAUOYLCHelen [facility] Hospitaltart: 04-25-2024 End: 30-08-1387Hxrxknmknc hospital visit by Luke Ahumada PTMWHGil Physical TherapyComment on above:ArrivedStart: 04-20-2024 End: 82-26-5038mwnrukzrplZHCZRT [facility] Hospitaltart: 04-20-2024 End: 93-06-1315Fzvxlpzaup hospital visit by physicianAnaid Ahumada PTMWHGil Physical TherapyComment on above:ArrivedStart: 04-17-2024 End: 31-60-9533spmgctriktSJLZTL [facility] Hospitaltart: 04-17-2024 End: 27-06-2504Cuwrisuocn hospital visit by physicianAnaid Ahumada PTMWHGil Physical TherapyComment on above:ArrivedStart: 04-14-2024 End: 73-79-8433gjdaxkvrkpAQOVJYE L YONLEYSelect Medical Special[facility] Wesleytart: 04-14-2024 End: 54-68-9422Oqcjldicol hospital visit by Luke Ahumada PTMWHGil Physical TherapyComment on above:ArrivedStart: 04-13-2024 End: 88-38-4402Dbvpnplzdz hospital visit by Luke Ahumada PTMWHZ Physical TherapyStart: 04-06-2024 End: 16-26-3315cffxbvspcoRGQQPVI Humphrey SLOANSelect [facility] Special[facility] Wesleytart: 04-06-2024 End: 90-50-0150Zuzatcumui hospital visit by Luke Ahumada PTMWHZ Physical TherapyComment on above:ArrivedStart: 03-17-2024 End: 22-30-9388ablopljlctUXDTBU [facility] HospitalStart: 03-17-2024 End: 54-61-0037Zyrvzaqfyi hospital [facility] by [facility] MammographyComment on above:Breast cancer screening by mammogramStart: 02-21-2024 End: 46-16-5745qtrxnppmydUpupgakBimal Crookcility:TULIO Willams Start: 02-14-2024 End: 10-32-5177ehiljbxilvZGYGRMDamir Perez [facility] Centertart: 02-02-2024 End: 08-52-9651yhghpacsanWKUNTKOZAYRA [facility] HospitalStart: 01-24-2024 End: 73-78-6499kneobwcpswHgxqlwxBimal Rodriguez MDFacility:TULIO Willams Start: 01-11-2024 End: 36-61-5412Nditecmxr department patient visitZAYRA Green HospitalStart: 12-24-2023 End: 31-31-7043Ggnijvbmb department patient visitEXCELA WESTMORELAND HOSPITALHERMILO Yin [facility]TA[facility] HOSPITALHARRYSelect Medical Specialty Hospital [facility]ronyang [facility]St[facility] EDComment on above:Tricompartment osteoarthritis of right knee (Primary Dx)Start: 10-19-2023 End: 67-93-7106Jcqkptqzzf and management of inpatientSELVON [facility] CenterStart: 10-01-2023 End: 48-56-5442bkfqmgexsdODNNBJSt. Vincent Hospital CenterStart: 03-99-0574Vuzpjfgkp for other preprocedural examinationSELVON [facility] CenterStart: 10-01-2023 End: 41-83-5616qnzrjdijyqRHTCFLBethesda North Hospital CenterStart: 85-00-9594dpafltnffiERWS SIEGALAvita Bucyrus HospitalStart: 08-10-2023 End: 75-02-0926Aatccqelgo hospital visit by Bj Zheng MD Work Phone: [facility] MRIComment on above:ArrivedStart: 49-22-1163ewtmyswrciMWZDBlanca [facility] HospitalStart: 08-02-2023 End: 36-37-0677Xexpbwq encounter procedureKeila Hemphill MD Work Phone: [facility] Orthopedics & Sports MedicineComment on above:Osteoarthritis of both sacroiliac joints (Primary Dx)Start: 08-02-2023 [facility] HospitalStart: 07-02-2023 End: 35-91-1627edzylpayzmBFBM [facility] HospitalStart: 07-02-2023 End: 51-60-3075Hpsfohujie hospital visit by Bj Zheng MD Work Phone: [facility] PeriopComment on above:Spinal stenosis of lumbar region with neurogenic claudicationStart: 60-28-3682urvkzdhxuuJVGN CORNELIOWestern Reserve Hospital [facility] HospitalStart: 15-36-6259Xafyvknfg for other preprocedural examinationJefferson County Health Center HospitalStart: 05-03-2023 End: 28-18-4856Oigfhgvgxo hospital visit by Bj Zheng MD Work Phone: [facility] RadiologyComment on above: ArrivedStart: 03-01-2023 End: 87-82-7619Mgmvaovzjl hospital visit by Bj Zheng MD Work Phone: [facility] RadiologyComment on above: ArrivedStart: 02-11-2023 End: 69-57-5580Vaeasawmiz hospital visit by Bj Zheng MD Work Phone: [facility] PeriopComment on above:SacroiliitisStart: 01-08-2023 End: 63-64-4826Ejcafxekgm hospital visit by Bj Zheng MD Work Phone: [facility] RadiologyComment on above: ArrivedStart: 66-86-7268irruvyzmeiEBR., [facility] Hospitaltart: 12-15-2022 End: 09-73-2670Vfqnoj outpatient visit 15 Marnie Hemphill MD Work Phone: [facility] Orthopedics & Sports MedicineComment on above:Osteoarthritis of both sacroiliac joints (Primary Dx); Pain of both sacroiliac jointsStart: 10-23-2022 End: 51-30-1265Trgqhg outpatient visit 15 Marnie Hemphill MD Work Phone: [facility]opedics & Sports MedicineComment on above:Osteoarthritis of both sacroiliac joints (Primary Dx); Pain of both sacroiliac joints; Pain of left hipStart: 09-23-2022 End: 83-92-3183Tjdpwwjru department patient visitKelley Shannon DO Work Phone: [facility] EDComment on above:Pneumonia of both lower lobes due to infectious organism (Primary Dx)Start: 09-08-2022 End: 85-49-1078gvzqjodqlcSOKBMMVTFBM LUTMAN [facility] Hospitalabran [facility] Start: 09-08-2022 End: 06-99-6527Tfpqyoqpkj hospital visit by physicianClemencia Campos MD Work Phone: stvz Onc/Med SurgComment on above:S/p RALH, BSO 09/08/22 (Primary Dx); Post endometrial ablation syndrome; Pelvic pain in femaleStart: 08-25-2022 End: 42-41-7253Eznyxgt encounter statusZayra Sloan DO Work Phone: mthz EKGStart: 08-25-2022 End: 80-45-5153Hbwccryukz hospital visit by Michael Sloan DO Work Phone: mthz EKGComment on above:Pre-op chest examStart: 08-17-2022 End: 83-05-6321Oqgrwponkc hospital visit by Shayy Springer PTMWHZ Physical TherapyComment on above:ArrivedStart: 57-51-6404jvrxnvrjzsEFK, [facility] HospitalStart: 08-14-2022 End: 19-56-2026Gnsnnkvhpp hospital visit by Yogesh Hemphill MD Work Phone: [facility] Procedure ImagesComment on above:Arrived Start: 08-14-2022 End: 91-06-7317Wzqezim encounter Carola Hemphill MD Work Phone: [facility] Orthopedics [facility] Sports MedicineComment on above:Osteoarthritis of both sacroiliac joints (Primary Dx); Pain of both sacroiliac jointsStart: 08-13-2022 End: 78-67-8530Wahljxeope hospital visit by physicianAngela D ChaffinsMWHZ Physical TherapyComment on above:ArrivedStart: 08-13-2022 End: 31-55-9009Sgfhbl outpatient visit 15 Marnie Hemphill MD Work Phone: [facility] Orthopedics & Sports MedicineComment on above:Osteoarthritis of both sacroiliac joints (Primary Dx); Pain of both sacroiliac jointsStart: 08-11-2022 End: 58-95-7678Pqtouydxkq hospital visit by Lenora Diaz Physical TherapyComment on above:ArrivedStart: 08-04-2022 End: 76-79-2220Apnwfvuzxz hospital visit by Lenora Diaz Physical TherapyComment on above:ArrivedStart: 07-30-2022 End: 99-83-3309Gqaljrdypz hospital visit by Michael Sloan DO Work Phone: mthz LaboratoryComment on above:Left ovarian cyst Start: 07-30-2022 End: 38-88-3118Yaydboclah hospital visit by Lenora Diaz Physical TherapyComment on above:ArrivedStart: 07-28-2022 End: 07-02-3966Adkoyxvdmh hospital visit by Shayy OLIVER Physical TherapyComment on above:ArrivedStart: 07-22-2022 End: 28-98-1921Tsnfjfjitr hospital visit by Shayy OLIVER Physical TherapyComment on above:ArrivedStart: 07-20-2022 End: 02-62-6373Ilucrfcwtg hospital visit by Shayy OLIVER Physical TherapyComment on above:ArrivedStart: 06-23-2022 End: 22-66-8136Hubpzn outpatient new 45 Marnie Hemphill MD Work Phone: [facility] Orthopedics & Sports MedicineComment on above:Osteoarthritis of both sacroiliac joints (Primary Dx); Pain of both sacroiliac joints; Other spondylosis with radiculopathy, lumbar region; Spinal stenosis, lumbar region with neurogenic claudicationStart: 2022 ambulatoryINC., OTHER [facility] HospitalStart: 06-10-2022 End: 02-28-4200Wovpsvcsvh hospital visit by [facility] RadiologyComment on above:Low back pain, unspecified back pain laterality, unspecified chronicity, unspecified whether sciatica present Start: 05-18-2022 End: 73-14-6612Gflixqkjah hospital visit by Steve Mri Scanner [facility] MRIComment on above:Chronic bilateral low back pain with bilateral sciaticaStart: 04-06-2022 End: 40-73-7489Totnxunbmu hospital visit by Shayy OLIVER Physical TherapyComment on above:ArrivedStart: 04-01-2022 End: 11-20-3543Ruiljuqabd hospital visit by Alexa Linda Physical TherapyComment on above:ArrivedStart: 03-26-2022 End: 09-54-4133Ybuzyuwhqp hospital visit by Michael Sloan DO Work Phone: mthz LaboratoryStart: 03-24-2022 End: 90-60-6999Jqdpgxlfvr hospital visit by Shayy OLIVER Physical TherapyComment on above:ArrivedStart: 03-19-2022 End: 90-77-1555Ffsmwqrsis hospital visit by Alexa Linda Physical TherapyComment on above:ArrivedStart: 03-17-2022 End: 59-83-1276Sgelnfjpoj hospital visit by Shayy OLIVER Physical TherapyComment on above:ArrivedStart: 03-05-2022 End: 47-20-8773Qitmrookit hospital visit by Alexa Linda Physical TherapyComment on above:ArrivedStart: 03-03-2022 End: 49-21-7350Wmluihicrv hospital visit by Shayy OLIVER Physical TherapyComment on above:ArrivedStart: 02-24-2022 End: 93-20-4462Wpzanynfyb hospital visit by Shayy OLIVER Physical TherapyComment on above:ArrivedStart: 01-28-2022 End: 49-45-5062Vupvlaj encounter procedureAcmc Healthcare System [facility]-XRay Strub RdStart: 01-07-2022 End: 58-06-0492Glltcxiyre hospital visit by Michael Sloan DO Work Phone: mthz LaboratoryStart: 12-20-2021 End: 45-13-2671Bybchplco department patient visitSean [facility] EDComment on above:Rash (Primary Dx); Allergic reaction, initial encounterStart: 12-10-2021 End: 63-83-2243Ggwnancwqc hospital visit by Ashley Pickreing MD Work Phone: mthz ORComment on above:DysmenorrheaStart: 12-04-2021 End: 20-97-9026Hsyhedh encounter statusFrank Pickering MD Work Phone: mthz PRE ADMITStart: 12-04-2021 End: 08-50-0194Tsufjpdfsy hospital visit by Ashley Pickering MD Work Phone: mthz PRE ADMITComment on above:Pre-op testingStart: 09-18-2021 End: 71-60-6835Nhxaldanfq hospital visit by Michael Sloan DO Work Phone: mwhz LaboratoryComment on above:Type 2 diabetes mellitus without complication, without long-term current use of insulin (HCC); Encounter for hepatitis C screening test for low risk patient; Iron deficiency anemia due to chronic blood lossStart: 06-01-2021 End: 09-84-6808Yfgttsyky department patient visitLorie Win MD Work Phone: [facility] EDComment on above:Adverse effect of drug, initial encounter (Primary Dx)Start: 04-02-2021 End: 33-30-0931Xpnqsqyyzn hospital visit by Michael Sloan DO Work Phone: mwhz LaboratoryComment on above:Iron deficiency anemia due to chronic blood loss; Type 2 diabetes mellitus without complication, without long-term current use of insulin (HCC)Start: 04-02-2021 End: 61-50-0223Cmxjvyppnt hospital visit by Michael Sloan DO Work Phone: [facility] RadiologyStart: 03-12-2021 End: 68-23-1497misuoinobqXR DOCTOR MISCFacility:P5Qazkh: 03-06-2021 End: 70-48-0309blfgzhywpxSQ GLENN Gambino WESTFacility:P2Inoyh: 02-26-2021 End: 85-30-0397fwfljxwlpgTQ GLENN Gambino WESTFacility:G1Hvqna: 02-20-2021 End: 16-44-9984jwfvtzzmshTS DOCTOR MISCFacility:F8Hyuim: 02-04-2021 End: 73-68-4379Eadcgaobme hospital visit by physicianDevi Aleman Pat Screening ScheduleMWHZ PRE ADMITComment on above:Suspected COVID-19 virus infectionStart: 01-23-2021 End: 72-60-8365sofbaqzjyrHR DOCTOR MISCFacility:R1Pnndf: 01-02-2021 End: 96-31-7582hnbrbxhpnwUW DOCTOR MISCFacility:F5Rozyt: 11-21-2020 End: 55-19-2419Kuzzpihqwt hospital visit by Michael Sloan DO Work Phone: MWHZ LaboratoryComment on above:Iron deficiency anemia due to chronic blood lossStart: 05-23-2020 End: 95-21-6467Slabzgfgrb hospital visit by Kavita Galeano Work Phone: mWHZ ORStart: 05-23-2020 End: 85-45-3825Acgqzinksh hospital visit by physicianDevi Aleman Pat Screening ScheduleMWHZ PRE ADMITComment on above:ArrivedStart: 05-09-2020 End: 33-23-9771Hxgkjthixg hospital visit by Kavita Galeano Work Phone: mWHZ ORStart: 05-09-2020 End: 59-44-8652Kyevivylav hospital visit by physicianDevi Aleman Pat Screening ScheduleMWHZ PRE ADMITComment on above:ArrivedStart: 04-11-2020 End: 71-73-5055Vntetjkcmw hospital visit by Kavita Galeano Work Phone: mWHZ ORStart: 04-11-2020 End: 74-67-0805Zogkumyjbm hospital visit by physicianDevi Aleman Pat Screening ScheduleMJOVON PRE ADMITComment on above:ArrivedStart: 04-02-2020 End: 03-34-1296Eqmkajufwi hospital visit by Michael Bullard LaboratoryComment on above:Viral URI with coughStart: 03-07-2020 End: 33-05-7727Skqwtcuuza hospital visit by physicianDevi Aleman Pat Screening ScheduleMWHGil PRE ADMITStart: 03-07-2020 End: 97-45-7373Srwysjswjv hospital visit by Kavita Galeano Work Phone: mWHZ ORStart: 12-20-2019 End: 95-84-5570Xfdtfgcta department patient visitChhue Yang Dino Work Phone: [facility] EDComment on above:Acute right- sided low back pain with right-sided sciatica (Primary Dx)Start: 11-14-2019 End: 14-88-8269Kwkhlwxqwu hospital visit by physicianDevi Mammography [facility] MammographyComment on above:Breast cancer screening by mammogram Start: 05-18-2019 End: 26-63-3437Tvwikvavdp hospital visit by physicianDevi Gen RadiologistMemorial Health System [facility] RadiologyComment on above:ArrivedStart: 05-15-2019 End: 75-58-8615Bzbiukcznw hospital visit by Mor Waters MD Work Phone: mWHZ EndoscopyStart: 04-11-2019 End: 78-25-9025Tmevkilmpz hospital visit by physicianDevi Pulmonary Function Rm MWHZ PFTComment on above:ArrivedStart: 03-31-2019 End: 17-77-2893Rqxnjqivjb hospital visit by Michael Bullard LaboratoryComment on above:Screening for cardiovascular condition; Weight gain; Prediabetes; Decreased hemoglobinStart: 03-18-2019 End: 29-62-4980Ipdzgzoyvv hospital visit by physicianDevi [address] RadiologyComment on above:Acute bronchitis, unspecified organism Procedures DateProcedureProcedure DetailPerforming ClinicianStart: 67-24-6413Hcumh albumin quantitativeJessica L Tanner DO Work Phone: start: 05-53-0850Qinde shoulder complete minimum 2 viewsDylan Yaron Reeder DO Work Phone: Start: 12-21-9380Nbfglwmkzh exam knee complete 4/more viewsClemencia Sun MD Work Phone: Start: 78-28-1243Yuzgd hip unilateral with pelvis 2-3 viewsChhue Sun MD Work Phone: Start: 23-40-0333Xlboymuutw examination knee 3 views Adrien Ray MDStart: 08-10-2023 End: 42-72-3064Map pelvis w/o contrast materialElliot Zheng MD Work Phone: Start: 70-18-9890FG Unspecified body regionKeila Hemphill MD Work Phone: Start: 61-18-2995Bugpjdtfqupsfw aspir&/inj major jt/bursa w/usKeila Hemphill MD Work Phone: Start: 03-73-4217Nmhr bld gluc mntr dev cleared fda spec home useElliot Zheng MD Work Phone: Start: 41-32-9826Casvu spine lumbscrl compl w/bending views min 6Joel Marce NOBLE Work Phone: Start: 52-32-8946Ryubm spine lumbosacral 2/3 viewsElliot Zheng MD Work Phone: Start: 47-16-6166Bcap bld gluc mntr dev cleared fda spec home useElliot Zheng MD Work Phone: Start: 85-49-6195Ouxga spine lumbscrl compl w/bending views min 6Jwinter Zheng MD Work Phone: Start: 03-08-2039XG Unspecified body regionKeila Hemphill MD Work Phone: Start: 50-19-9331Lndslovcofrbzt aspir&/inj major jt/bursa w/Missy Hemphill MD Work Phone: Start: 58-44-7627Pxzxiutjwxehpt aspir&/inj major jt/bursa w/o Missy Hemphill MD Work Phone: Start: 46-27-0479Pcuodnbskp exam chest single view Kelley J Shannon DO Work Phone: Start: 37-19-3987Od abdomen & pelvis w/contrast materialJaveria J Shannon DO Work Phone: Start: 12-52-8827Pylnjhrotr microscopic onlyJaveria J Shannon DO Work Phone: Start: 17-41-1409Wgfod dip stick/tablet rgnt auto w/o microscopyJaveria J Shannon DO Work Phone: Start: 78-25-9433Xtvaqorxyllgw metabolic panelJaveria J Shannon DO Work Phone: Start: 59-56-7689Qqjrfbs blood reagent strip Clemencia Campos MD Work Phone: Start: 85-77-7332Gyrzrgh blood reagent strip Clemencia Campos MD Work Phone: Start: 36-52-3623Ooerp count complete auto&auto difrntl wbcMorgan E Benny DO Work Phone: Start: 00-47-7504Fovhbou blood reagent strip Clemencia Campos MD Work Phone: Start: 42-91-6594Ltyfflm blood reagent strip Clemencia Campos MD Work Phone: Start: 40-65-1397Vfmnnxl blood reagent strip Clemencia Campos MD Work Phone: Start: 55-73-1755Wshuxmo blood reagent strip Clemencia Campos MD Work Phone: Start: 09-08-2022 End: 24-90-1039Qouikridatob chorionic qualitativeMikolby Cool MD Work Phone: Start: 35-04-8763Daishqfluip tumor antigen quantitative ca 125Christopher Beth NOBLE Work Phone: Start: 20-40-9675Tba routine ecg w/least 12 lds w/i&r Tinosa Jeanine HARTMAN Work Phone: Start: 92-74-2145PN Unspecified body regionKeila Hemphill MD Work Phone: Start: 18-90-9472Vkrctflbngusrp aspir&/inj major jt/bursa w/usJamie Surya ATCStart: 98-00-1519Yefetmffqgas follicle stimulating hormoneWemiko Pickering MD Work Phone: Start: 16-75-0415Ukapfegiw single/off premise service representative trigger point 1/2 musclesJamie Surya ATCStart: 02-78-5473Fekkj spine lumbscrl compl w/bending views min 6Joel D Marce NOBLE Work Phone: Start: 25-89-8601Mkc spinal canal lumbar w/o contrast materialJessica L Tanner DO Work Phone: start: 57-78-0480Sauji metabolic panel calcium total Rg Orozco MD Work Phone: Start: 66-22-0389Mefrv X-ray of bilateral handsStart: 80-21-2116Hraxy of urea nitrogen quantitativeWemiko Pickering MD Work Phone: Start: 34-11-0187KNMYLVB, WHOLE BLOODWemiko Pickering MD Work Phone: Start: 56-09-6365Icc routine ecg w/least 12 lds i&r onlyFrank Pickering MD Work Phone: Start: 09-54-5493Zozwnul bacterial quanttative colony count urineWemiko Pickering MD Work Phone: Start: 89-49-0504Wnott typing serologic aboFrank Pickering MD Work Phone: Start: 58-55-1427Gkmlrbodseom chorionic qualitative Frank Pickering MD Work Phone: Start: 57-92-4817Ifgpnkvbyqbos metabolic panelJessica L Yonley DO Work Phone: start: 83-04-3346Ogpvf panelJessica L Yonley DO Work Phone: start: 62-92-8683YUMHYRJ FASTING?Zyara L Yonley DO Work Phone: start: 70-78-0234Tgiry albumin quantitativeJessica L Yonley DO Work Phone: start: 63-65-3469Zvvnpgmyzzaqx metabolic panelJessica L Yonley DO Work Phone: start: 81-53-8835Hpcnxhqeojv observation [Identifier] in Cervix by Cyto stainFrank Pickering MD Work Phone: Start: 75-02-2446IcbjktckwdfVycxgdr Yonley DO Work Phone: start: 82-85-0525Zqwv binding capacityJessica L Yonley DO Work Phone: start: 71-83-1203Dyuhsgpspunf chorionic qualitative Sukhdev Moiseo Capulong Work Phone: Start: 16-55-0302Dnez bld gluc mntr dev cleared fda spec home useEdwin Leano Capulong Work Phone: Start: 46-97-0500QVRXC-19Luis E Brown Work Phone: Start: 49-85-0214Rymjpngzmjg up to 1 hour physician/qhp timeEdtripp Galeano Work Phone: Start: 86-25-7959Jalb bld gluc mntr dev cleared fda spec home useEdtripp Galeano Work Phone: Start: 42-87-1824SKTSC-19Luis E Brown Work Phone: Start: 87-11-6804Iosrrxazuzg up to 1 hour physician/qhp timeEdtripp Galeano Work Phone: Start: 25-74-9384Vcdeleyufdqk chorionic qualitative Sukhdevtripp Galeano Work Phone: Start: 69-24-7912YUDRY-19Luis E Brown Work Phone: Start: 31-87-1110Egyiteocqvv up to 1 hour physician/qhp timeEdtripp Galeano Work Phone: Start: 93-42-6412Txfx bld gluc mntr dev cleared fda spec home useEdtripp Galeano Work Phone: Start: 53-77-4771Hkvpc test visual color cmprsn methsEdtripp Galeano Work Phone: Start: 78-41-5617WHKJJ-19Luis E Brown Work Phone: Start: 47-26-3970Nqcblsylh mammography bi 2-view breast inc cadMiloyudihermilo Weeksharry Work Phone: start: 01-66-2533Zdfbdyfejb exam upr gi trc single contrast Shellie Waters MD Work Phone: Start: 05-15-2019 End: 50-10-3917Uardtlgrntcijan Waters MD Work Phone: Start: 59-79-7769HTTBENPYU TX INTERMITTENTBilly Back Work Phone: start: 39-88-3660Bwfwb of thyroid stimulating hormone tshZayra Sloan Work Phone: start: 24-45-9820Sonfo count complete auto&auto difrntl wbcZayra Sloan Work Phone: start: 80-29-1223Aoikbvlmjl glycosylated u0uGzensleZayra Sloan Work Phone: start: 91-68-7090Yqzqt panelZayra Sloan Work Phone: start: 34-01-9472UTDVFZB FASTING?Zayra Sloan Work Phone: start: 77-96-9570Oregagemfp exam chest 2 Doug Anderson Work Phone: Plan of Treatment DateCare ActivityDetailAuthorStart: 66-07-8377Vyttwsgmh for malignant neoplasm of colonCoshocton Regional Medical CenterStart: 77-75-4228Xwvqrcywl for malignant neoplasm of breast Breast cancer screenSentara CarePlex Hospital: 51-14-5658Hdygwxtrhf MonitoringDepression MonitoringMary Washington Healthcareart: 86-77-4427Grglyovu foot examinationDiabetic foot examMary Washington Healthcareart: 11-17-2025 Hemoglobin A1c lbslkfhmqfwF1E test (Diabetic or Prediabetic)[facility] Healthcareart: 11-97-5506Btjqo screening for proteinDiabetic Alb to Cr ratio (uACR) testMary Washington Healthcareart: 17-28-4910Vqmsaembwo Monitoring Depression MonitoringMary Washington Healthcareart: 02-20-2025 End: 22-18-3257Hhknrlm encounter pxbifgdqw49/23/2025 9:40 AM EDT Office Visit [facility] [address] [place] [address] Zayra Sloan DO [address] [place] [address] Follow-up disposition: Return in about 3 months (around 02/17/2025) for DM.[facility] WILLARDComment on above: Follow-up disposition: Return in about 3 months (around 02/17/2025) for DM.Start: 83-34-3638IIF test (Diabetes, CKD 3-4, OR last GFR 15-59)GFR test (Diabetes, CKD 3-4, OR last GFR 15-59)[facility] Healthcareart: 97-00-0603Lsxuhncmqo A1c xlbtpkqydkuA9Q test (Diabetic or Prediabetic)[facility] Healthcareart: 12-86-1221Ronht panelLipidsBon Adena Health Systemart: 01-03-2025 End: 02-85-0158Pgwoiko encounter tcyqepxbw95/06/2025 3:30 PM EDT Office Visit [facility] [address] [place] [address] [phone] [place] [address] Tino Sánchez PA-C [address] [place] [address] [address] [place] [address] 1 year f/u December 2024 (needs last appt d/t working and he has to drive her)[facility]nec[facility] Oncology ServicesComment on above:1 year f/u December 2024 (needs last appt d/t working and he has to drive her)Start: 20-38-2530Jvhmsdtgw vaccinationBon Adena Health Systemart: 23-19-6046Jnbzhxaro for malignant neoplasm of breastBreast cancer screenSentara Northern Virginia Medical Centerart: 10-21-2024 GFR test (Diabetes, CKD 3-4, OR last GFR 15-59)GFR test (Diabetes, CKD 3-4, OR last GFR 15-59)[facility] Centerart: 61-45-1329Ljabwjrtkr A1c cikcdijiovqZ0V test (Diabetic or Prediabetic)[facility] Medical Centerart: 67-95-7865Moafzqwyfe MonitoringDepression MonitoringBON SECOURS ST[facility] Start: 90-33-3225Vjefmbom foot examinationDiabetic foot examBON Mercy Hospitalart: 06-01-2024 End: 57-39-9652Nrclolw encounter procedureMU.S. [facility] Physical TherapyComment on above: 15 of 30 (90shared w/OT/PT/SP)Lumbar spine- Selvon [facility].[place] SpringerueBCBS- 1 of 30 (90shared w/OT/PT/SP)Lumbar spine- Selvon [facility] Evanstart: 05-29-2024 End: 82-03-1848Mxhhrdk encounter procedureMU.S. [facility] 1 Physical TherapyComment on above: 14 of 30 (90shared w/OT/PT/SP)Lumbar spine- Selvon [facility] DiehlueStart: 05-18-2024 End: 68-26-6600Dbmatwo encounter procedureMU.S. [facility] Physical TherapyComment on above: 13 of 30 (90shared w/OT/PT/SP)Lumbar spine- Selvon [facility] Evanstart: 05-15-2024 End: 78-57-6827Xoneusq encounter procedureMU.S. AR[facility] 1 Physical TherapyComment on above: 12 of 30 (90shared w/OT/PT/SP)Lumbar spine- Selvon RaganPilartart: 05-11-2024 End: 29-58-0063Nhmzvov encounter xxaulvukf67/12/2024 10:30 AM EST Appointment [facility] Physical Therapy [address] [place] [address] Anaid Larsen, PT 12 of 30 (90shared w/OT/PT/SP)Lumbar spine- Selvon [facility] DiehltristonCARTHAGE AREA HOSPITALZ Physical TherapyComment on above:12 of 30 (90shared w/OT/PT/SP)Lumbar spine- Selvon [facility] DiehlPilartart: 05-09-2024 End: 30-42-4945Emrcmwx encounter wjaedzref00/10/2024 11:00 AM EST Appointment [facility] Physical Therapy [address] [place] [address] Anaid Larsen, PT 11 of 30 (90shared w/OT/PT/SP)Lumbar spine- Selvon [facility] DiehlCarolinas ContinueCARE Hospital at Kings MountainZ Physical TherapyComment on above:11 of 30 (90shared w/OT/PT/SP)Lumbar spine- Selvon tart: 05-04-2024 End: 92-17-9570Wbafyqr encounter procedureMU.S. [facility] Physical TherapyComment on above: 10 of 30 (90shared w/OT/PT/SP)Lumbar spine- Selvon Ragantart: 05-01-2024 End: 15-50-5965Lhyujcx encounter procedureMU.S. [facility] Physical TherapyComment on above: 9 of 30 (90shared w/OT/PT/SP)Lumbar spine- Selvon Ragantart: 04-25-2024 End: 46-73-5163Jhxunph encounter procedureMU.S. [facility] Physical TherapyComment on above: 8 of 30 (90shared w/OT/PT/SP)Lumbar spine- Selvon Ragantart: 04-20-2024 End: 50-61-8880Hrlhfai encounter procedureMU.S. [facility] Physical TherapyComment on above: 8 of 30 (90shared w/OT/PT/SP)Lumbar spine- Selvon StAntonio Raganevue7 of 30 (90shared w/OT/PT/SP)Lumbar spine- Selvon [facility]rt: 04-17-2024 End: 49-11-8828Vipefap encounter procedureMU.S. [facility] Physical TherapyComment on above: 7 of 30 (90shared w/OT/PT/SP)Lumbar spine- Selvon StKaylynn Bellevue6 of 30 (90shared w/OT/PT/SP)Lumbar spine- Selvon Raganrt: 04-14-2024 End: 84-01-3574Uyiacje encounter aczwjahiq07/15/2024 9:30 AM EST Appointment [facility] Physical Therapy [address] [place] [address] Anaid Larsen L, PT 6 of 30 (90shared w/OT/PT/SP)Lumbar spine- Selvon StDaliVirtua Mt. Holly (Mem[facility]) Physical TherapyComment on above:6 of 30 (90shared w/OT/PT/SP)Lumbar spine- Selvon St.Kaylynn BellevueStart: 04-13-2024 End: 43-71-1798Vjxqbur encounter jyigzwkcq16/14/2024 9:30 AM EST Appointment [facility] Physical Therapy [address] [place] [address] Anaid Larsen L, PT 5 of 30 (90shared w/OT/PT/SP)Lumbar spine- Selvon [facility] HealthtristonMWHZ Physical TherapyComment on above:5 of 30 (90shared w/OT/PT/SP)Lumbar spine- Selvonicholas Mobley [facility] HealthueStart: 10-72-9808Xrvmowxab for malignant neoplasm of cervixValley Health: 02-02-2024 End: 46-86-6110Yfbusun encounter /04/2024 8:00 AM EDT Office Visit [facility] MARCOS [address] [place] [phone] Zayra Sloan, DO [address] [facility] [place] [address] 3 month f[facility] Comment on above:3 month f/uStart: 67-21-0207UZQXK-19 Vaccine ( season)COVID-19 Vaccine ( season)[facility]: 87-82-0958QVYHF-19 Vaccine ( season)COVID-19 Vaccine ( season)[facility]: 01-05-2024 End: 36-19-8265Smjjdrp encounter coqehspjd17/07/2024 2:00 PM EDT Office Visit [facility] Gynecologic Oncology Services [address] [facility] [address] [place] [address] Tino Sánchez PA-C [address] [facility] [address] [place], [place] [id number] Follow-up/ med refillMercy Gynecologic Oncology ServicesComment on above:Follow-up/ med refill Start: 23-54-9733Kwkwtiorb vaccinationFlu vaccine (#1)[facility] Start: 11-09-2023 End: 46-65-6140Ueauivm encounter lyxjeatug88/11/2024 12:00 PM EDT [facility] [address] [place] [address] [place] [address] Keila Hemphill MD [address] [place] [address] [place] [address] [facility] MedicineStart: 90-87-8141JTQ test (Diabetes, CKD 3-4, OR last GFR 15-59)GFR test (Diabetes, CKD 3-4, OR last GFR 15-59)[facility]ENTERStart: 09-09-2023 GFR test (Diabetes, CKD 3-4, OR last GFR 15-59)GFR test (Diabetes, CKD 3-4, OR last GFR 15-59)[facility] Centerart: 91-78-9189DZP test (Diabetes, CKD 3-4, OR last GFR 15-59)GFR test (Diabetes, CKD 3-4, OR last GFR 15-59)[facility] Centerart: 07-02-2023 End: 07-13-7732Bhqdttjwz single/off premise service representative trigger point 1/2 musclesINJECTION MUSCLE TRIGGER POINT 1 OR 2 MUSCLES Spinal stenosis of lumbar region with neurogenic claudication 07/02/2023 9:25 AM [facility]AV[facility] ORStart: 84-97-3348Hvpetkkr retinal examDiabetic retinal examBON Mercy Hospitalart: 05-33-3946Wphdcjtb screeningDiabetic retinal examBON Mercy Hospitalart: 14-18-6789Rftrixase vaccinationBON HOLZER HEALTH SYSTEMComment on above:Postponed from 12/29/2021 (Patient Refused)Postponed from 12/29/2022 (Patient Refused)Start: 27-30-1895NYA test (Diabetes, CKD 3-4, OR last GFR 15-59)GFR test (Diabetes, CKD 3-4, OR last GFR 15-59)[facility]ENTERStart: 02-11-2023 End: 13-72-0141Kgfltfqeomm sacroiliac joint percutaneousARTHRODESIS SACROILIAC JOINT MINIMALLY INVASIVE W/ TRANSFIXING DEVICE Sacroiliitis 02/11/2023 11:58AM EDTAVI BUC ORStart: 02-11-2023 End: 01-71-2832Zuvmgshnnop up to 1 hour physician/qhp timeFLUOROSCOPY IN OR Sacroiliitis 02/11/2023 11:58 AM EDTAVI BUC ORStart: 15-41-5908DZICF-19 VACCINE ()COVID-19 VACCINE ()[facility] Start: 19-45-4311Euylbsiaw vaccinationAccess Hospital Daytontart: 01-21-2023 Hemoglobin A1c foysqrsspuaM2E test (Diabetic or Prediabetic)[facility]ENTERStart: 12-15-2022 End: 31-21-9300Uhvqmfp encounter slovlxtjw99/18/2023 10:30 AM EDT Office Visit [facility] [address] [facility] [place] [address] Keila Hemphill MD [address] [place] [address] [place] [address] [facility] MedicineStart: 10-15-2022 End: 84-79-7736Wkrkumy encounter fzatzvjha39/18/2023 Office Visit Gynecologic Oncology Tino Sánchez PA-C [address] [address] [address] [place] [address] [facility] Gynecologic Oncology ServicesStart: 09-25-2022 End: 47-09-9229Nsylwoj encounter rbwkjgyzc38/28/2023 Office Visit Orthopaedics Keila Hemphill MD [address] [facility] [place] [address] Dilcia Hodgeus [facility]oped[facility] Sports MedicineStart: 09-21-2022 End: 19-11-2120Zxedrxh encounter imsnntoju71/24/2023 Office Visit Gynecologic Oncology Tino Sánchez PA-C [address] [facility] [address] [place] [address] [facility] Gynecologic Oncology ServicesStart: 09-21-2022 End: 66-29-1683Vuasdlj encounter rrttoihpk61/24/2023 Office Visit Orthopaedics Keila Hemphill MD [address] [facility] [place] [address] [facility] Sports MedicineStart: 09-18-2022 Creatinine measurementCreatinineMartins Ferry Hospital HealthStart: 64-28-5644Guciuqkngt MonitoringDepression MonitoringMercy HealthStart: 95-53-8098Adzvbwhfgc A1c gllgbunmnweR0K test (Diabetic or Prediabetic)[facility] CenterStart: 97-23-0251Quvac panelLipidsMartins Ferry Hospital HealthStart: 11-39-1753Dwcwnquqj [Moles/volume] in Serum or PlasmaPotassiumMercy HealthStart: 51-12-9322Jwidh screening for proteinMercy HealthStart: 09-08-2022 End: 39-42-7329Kovjehvsg to same day surgery ckncwy3609/08/2022 Surgery IP Unit Clemencia Campos MD [address] [facility] [address], [address] [place] [address] XI ROBOTIC LAPAROSCOPIC TOTAL HYSTERECTOMY, BSO, POSSIBLE EXPLORATORY LAPAROTOMY, OTHER NECESSARY PROCEDURES STVZ ORComment on above:XI ROBOTIC LAPAROSCOPIC TOTAL HYSTERECTOMY, BSO, POSSIBLE EXPLORATORY LAPAROTOMY, OTHER NECESSARY PROCEDURESStart: 09-08-2022 End: 08-80-0535Smsw total hysterect 250 gm/< w/rmvl tube/ovaryHYSTERECTOMY ABDOMINAL LAPAROSCOPIC ROBOTIC Post endometrial ablation syndrome Pelvic pain in female 09/08/2022 7:30 AM [facility] HospitalStart: 09-08-2022 Subsequent hospital visit by /11/2023 Hospital Encounter IP Unit Clemencia Campos MD [address] [facility] [address] [place] [id number] STVZ ORStart: 08-19-2022 End: 51-20-6633Kifylvt encounter /22/2023 Appointment Physical Therapy Sarah Tony Physical TherapyStart: 08-17-2022 End: 90-35-6162Vsnpbae encounter puxxpvvyv73/20/2023 Appointment Physical Therapy Dayanna Springer PTMWHZ Physical TherapyStart: 08-13-2022 End: 00-13-7964Fbkwyep encounter tobepqlqf98/16/2023 Appointment Physical Therapy Sarah Tony Physical TherapyStart: 08-11-2022 End: 12-71-8310Cpelutk encounter vgkumlaxp23/14/2023 Appointment Physical Therapy Sarah Tony Physical TherapyStart: 08-06-2022 End: 21-17-8655Nczijuh encounter awedeblsu16/09/2023 Appointment Physical Therapy Sarah Tony Physical TherapyStart: 08-05-2022 End: 05-30-6995Gpnnqds encounter xtldiprvu45/08/2023 Office Visit Gynecologic Oncology Clemencia Campos MD [address] [facility] [address], [address] [place] [address] [facility]necologic Oncology Services Start: 08-04-2022 End: 03-80-1514Huwizco encounter upapkfqpp68/07/2023 Appointment Physical Therapy Sarah Tony Physical TherapyStart: 07-31-2022 End: 48-01-5239Jgpreok encounter /03/2023 Appointment Physical Therapy Dayanna Springer PTMWHZ Physical TherapyStart: 07-30-2022 End: 35-96-7235Wqkeooq encounter procedureMONALISA Physical TherapyStart: 07-28-2022 End: 41-75-5032Ndsxkth encounter fqlwimkkz47/28/2023 Appointment Physical Therapy Dayanna Springer PTMWHZ Physical TherapyStart: 07-22-2022 End: 25-40-9748Lahhjqt encounter iczjqyvyf04/22/2023 Appointment Physical Therapy Dayanna Springer PTMWHZ Physical TherapyStart: 79-59-6641Bprguoaeym measurementCreatinine monitoringCoshocton Regional Medical CenterStart: 08-01-5946Lpftcvkee monitoringPotassium monitoringCoshocton Regional Medical CenterStart: 04-07-2022 End: 72-80-7597Llkuadyas to same day surgery lifbzm6104/07/2022 Surgery General Surgery Kaylinneno Goldie I, DO [address] [facility] [address] [place] [phone] HERNIA UMBILICAL REPAIR LAPAROSCOPIC ROBOTICSTJUN [place] ORComment on above:HERNIA UMBILICAL REPAIR LAPAROSCOPIC ROBOTICStart: 04-07-2022 End: 58-26-5444Cos umbilical hrna 5 yrs/> reducibleVan Wert County HospitalStart: 54-55-3544Iqnmtscxgh hospital visit by physicianSREMI [place] ORComment on above:Pre-op testing (Primary Dx)Start: 04-02-2022 End: 81-52-0800Jbawynv encounter vzafklllm58/03/2022 Appointment Physical Therapy Dayanna Springer PTMWHZ Physical TherapyStart: 53-59-7583Tvhxbdnc foot examinationDiabetic foot examCoshocton Regional Medical CenterStart: 23-76-1784Yaaljzhsbl A1c kticfrpxhdpM5K test (Diabetic or Prediabetic)[facility] CenterStart: 04-02-2022 Influenza vaccinationCoshocton Regional Medical CenterComment on above:Postponed from 01/29/2021 (Patient Refused)Postponed from 01/29/2022 (Patient Refused)Start: 03-31-2022 End: 71-91-6382Tvpytrw encounter udiebssjp41/01/2022 Appointment Physical Therapy Dayanna Springer PTMWHZ Physical TherapyStart: 03-27-2022 End: 38-53-6566Blspjuc encounter wyihgtvfy64/28/2022 Appointment Physical Therapy Jenn Carrasco Physical TherapyStart: 03-26-2022 End: 28-04-0044Hisxsed encounter /27/2022 Appointment Physical Jenn Anaya Physical TherapyStart: 03-24-2022 End: 32-61-1607Ksunljw encounter afplbqmzx91/25/2022 Appointment Physical Therapy Dayanna Springer PTMWHZ Physical TherapyStart: 03-19-2022 End: 29-15-8564Xlkfkui encounter kbggdroct08/20/2022 Appointment Physical Therapy Jenn Carrasco Physical TherapyStart: 03-17-2022 End: 65-52-4472Iniqgrb encounter ytpbzudfd10/18/2022 Appointment Physical Therapy Dayanna Springer PTMWHZ Physical TherapyStart: 03-12-2022 End: 58-31-1656Ldtawqf encounter gofdrcdoo92/13/2022 Appointment Physical Therapy Jenn Carrasco Physical TherapyStart: 03-11-2022 End: 79-49-2805Ieqrdbw encounter tuvhvtnmo58/12/2022 Office Visit General Surgery Goldie Ace I, [address] [place] [phone] [facility] GENERAL SURGERY Part [facility] Hospitaltart: 03-10-2022 End: 89-58-6093Rruvzkh encounter /11/2022 Appointment Physical Therapy Hanna Lawler PTAMWHZ Physical TherapyStart: 03-05-2022 End: 60-90-0946Ixrngrc encounter pdcipvcfj50/06/2022 Appointment Physical Therapy Jenn Carrasco Physical TherapyStart: 62-03-3587Wfylqvnzsu hospital visit by /06/2022 Hospital Encounter Physical Therapy Jenn Carrasco Physical TherapyStart: 03-03-2022 End: 75-80-2420Btphwne encounter dkdjahmvy13/04/2022 Appointment Physical Therapy Dayanna Springer PTMWHZ Physical TherapyStart: 57-50-6586Lztkxkmlut measurementCreatinine monitoringMercy Health Work Phone: start: 58-10-9508Tdpedmuuj monitoringPotassium monitoringMercy Health Work Phone: start: 02-26-2022 End: 39-27-4268Vtxrpgs encounter kijpfjwfw58/29/2022 Appointment Physical Therapy Jenn Carrasco Physical TherapyStart: 40-45-7651UpjrxalhtSacred Heart Hospital HEALTHStart: 61-98-1196Gmqrf screenLipid screen [facility]- [place], [place]Start: 65-40-9858ZqokqynxmUniversity Hospitals [facility] Work Phone: Start: 82-78-5073Rfnswkziu vaccinationFlu vaccine (#1) [facility] SYSTEMStart: 12-24-2021 End: 58-24-1730Pywckpu encounter ihdwwhwvf11/27/2022 Office Visit Obstetrics and Gynecology Frank Pickering MD [address] [place] [address] [facility] OBSTETRICS & GYNECOLOGY Part [facility] Connecticuttart: 12-10-2021 End: 17-21-4974Hpqppotsb to same day surgery mqssiu9512/10/2021 Surgery IP Unit Frank Pickering MD [address] [place], [place] [id number] DILATATION AND CURETTAGE HYSTEROSCOPY CAUTERY ABLATION-NOVASUREMTHZ ORComment on above:DILATATION AND CURETTAGE HYSTEROSCOPY CAUTERY ABLATION-NOVASUREStart: 12-10-2021 End: 27-66-9281Yxbpsucfxk ocgsckbjybuc67/13/2022 Anesthesia Event IP Unit Brittany Lucas Humphrey, SIGNALMAN - CLIENT SERVICE CONSULTANT [address] [facility] [address] [place] [address] [facility] ORStart: 12-10-2021 End: 39-73-6288Ifmzhailsrbe endometrial ablationTrumbull Regional Medical Center Hospital Start: 29-08-4699Lzdfocutnz hospital visit by rukunktrm29/13/2022 Hospital Encounter IP Unit Frank Pickering MD [address] [place], [place] [address] [facility] ORStart: 98-42-5484Fntwtltnj for malignant neoplasm of colonColon Cancer Screen FIT/FOBTCoshocton Regional Medical Center Work Phone: start: 10-29-2021 End: 99-25-6280Hldtpwu encounter /01/2022 Office Visit Obstetrics and Gynecology Veena Mary APRN - SANDRINE [address] [place] [address] [facility] HOSPITALBevy [facility]YNECOLOGY Part of [facility] Connecticuttart: 94-76-2943Lngsouum retinal examDiabetic retinal examSelect Medical Specialty Hospital - AkronQuanTemplateStart: 68-90-9061Iyxrnlloqi A1c zgbgqvnuhjbX4H test (Diabetic or Prediabetic)[facility] Phone: start: 11-52-2031Lpmptrets vaccinationFlu vaccine (Season Ended)[facility] Phone: comment on above:Postponed from 01/29/2021 (Patient Refused)Start: 09-52-0913Hqjukkrrvk measurementCreatinine monitoringSelect Medical Specialty Hospital - AkronCoveroo Phone: start: 53-13-2114Xqxfrpex microalbuminuria test Diabetic microalbuminuria testSelect Medical Specialty Hospital - AkronCoveroo Phone: start: 74-06-5327Hhlgb panelLipid screenSelect Medical Specialty Hospital - AkronQuanTemplate Start: 86-10-2800Muhpgfxgo monitoringPotassium monitoringSelect Medical Specialty Hospital - AkronCoveroo Phone: start: 85-91-2469Pppmt screening for proteinDiabetic microalbuminuria testSelect Medical Specialty Hospital - AkronQuanTemplateStart: 06-20-2021 End: 45-21-3781Lzvcqam encounter fkwwwwune51/21/2022 Office Visit Family Medicine Zayra Sloan, DO [address] [place] [phone] [facility] PRIMARY CARE WILLARDStart: 56-78-9630Uqcoauewp vaccinationFlu vaccine (#1)[facility] Phone: start: 42-87-3661Emftkgvdh for malignant neoplasm of breastMAMMOGRAM SCREENING DISCUSSIONHolzer Medical Center – Jackson SystemStart: 53-35-5418Enxshpqw foot examinationDiabetic foot examSelect Medical Specialty Hospital - AkronQuanTemplate- [place], [place]Start: 86-66-8066PaT4m (Bld) [Mass fraction]A1C test (Diabetic or Prediabetic)[facility] PRO Start: 18-20-8114Pguyzcchg for malignant neoplasm of colonCoshocton Regional Medical CenterStart: 06-04-2020 End: 13-89-5873Diyqsr Visit06/04/2020 Office Visit Family Medicine Zayra Sloan, DO [address] [place] [phone] [facility] WILLARDStart: 05-03-2020 End: 64-10-5751Wqtgkt Visit05/03/2020 Office Visit Pain Management Sukhdev Galeano MD [address] [place] [address] [phone] [facility] Physical Medicine & RehabilitationStart: 04-11-2020 End: 62-62-8793Khiqmzki EncounterMWHZ ORComment on above:GENICULAR NERVE BLOCK BILATERAL KNEESStart: 04-11-2020 End: 23-37-8001Peadfchcuph59/12/2020 Appointment Pre-Admission TestingMWHZ PRE ADMITStart: 09-56-2072R4S test (Diabetic or Prediabetic)A1C test (Diabetic or Prediabetic)[facility] PROStart: 77-71-2779Loepg panelLipid [facility] PROStart: 68-88-9884Sgdxq screenLipid [facility] PRO Start: 03-22-2020 End: 00-81-3356Ltxdel Visit03/22/2020 Office Visit Pain Management Sukhdev Galeano MD [address] [place] [address] [phone] [facility] Physical Medicine & RehabilitationStart: 74-43-4857Bukrpoonl vaccinationLouis Stokes [facility], PROStart: 12-11-2019 End: 75-10-8105Ihcoag Visit12/11/2019 Office Visit Family Medicine Zayra Sloan, DO [address] [place] [phone] [facility] PRIMARY C[facility] ARDStart: 05-29-2019 End: 65-38-8982Uyrcfid encounter qcmsddbye61/30/2019 Office Visit General Surgery David Waters MD [address] [place] [address] [address] [place] [address] [phone] [facility] Fur Operator - tart: 05-18-2019 End: 12-91-2779Rmaudml encounter uizcjrcya57/19/2019 Appointment Radiology Radiologist, [facility] RadiologyStart: 87-59-4536Rnuddwebc vaccinationFlu vaccine (#1)[place], [place]Start: 30-89-9754Vtpzyscx cancer screenCervical cancer screenAnn Arbor, KYStart: 30-35-0554Ieibkchmn for malignant neoplasm of cervixAnn [place]bor, KYStart: 41-09-0564T5G test (Diabetic or Prediabetic)A1C test (Diabetic or Prediabetic)[place] Start: 90-62-3789Fgnejztjbk measurementCreatinine [place], [place] Start: 97-31-8691Lljnwayjbe monitoringCreatinine monitoringAnn [place], [place] Start: 15-45-4241Wwlknmtta monitoringPotassium [place], [place] Start: 09-46-0100Xaitj panelLIPID SCREENINGAccess Hospital Daytontart: 2015 Screening for malignant neoplasm of breastMAMMOGRAM SCREENING DISCUSSIONAccess Hospital Daytontart: 32-91-4094Rodoqcjrx for malignant neoplasm of cervixCoshocton Regional Medical CenterStart: 10-90-6519Hxxgzreqd for malignant neoplasm of cervixCoshocton Regional Medical Center Start: 37-84-5696NFlR/Tdap/Td vaccine (1 - Tdap)DTaP/Tdap/Td vaccine (1 - Tdap) [facility] CenterStart: 95-06-1677Izalyqdgv B vaccinationHEP B VACCINE (1 of 3 - 19+ 3-dose series)[facility] SystemStart: 40-33-5393Tizlpwuhv B vaccine (1 of 3 - 19+ 3-dose series)Hepatitis B vaccine (1 of 3 - 19+ 3-dose series)Richelle Reed [facility] CenterStart: 74-30-0771Filnyfoxd B Vaccine (1 of 3 - Risk 3-dose series) Hepatitis B Vaccine (1 of 3 - Risk 3-dose series)[facility]: 1994 Pneumococcal 0-49 years Vaccine (1 of 2 - PCV)Pneumococcal 0-49 years Vaccine (1 of 2 - PCV)[facility]: 30-26-6076Qyvmr diphtheria, tetanus and acellular pertussis (DTaP) vaccinationTDAP (ADULT)[facility] Daytontart: 71-64-4583Qbnpzpwz microalbuminuria testDiabetic microalbuminuria testSycamore Medical Center: 53-61-1246OMN screeningHIV SCREENING DISCUSSIONAccess Hospital Daytontart: 65-27-8168UJCSJ-19 Vaccine (1)COVID-19 Vaccine (1)[facility] Work Phone: start: 69-37-3246Cdmzkguuek MonitoringDepression MonitoringGood Samaritan Hospital: 09-59-4470CZqE/Tdap/Td vaccine (1 - Tdap) DTaP/Tdap/Td vaccine (1 - Tdap)[facility]: 1985[object Object]Diabetic foot examSycamore Medical Center: 44-10-1965Amrupokj retinal examDiabetic retinal examSycamore Medical Center: 55-69-8365Bjrmwkrlaqzw 0-64 years Vaccine (1 - PCV)Pneumococcal 0-64 years Vaccine (1 - PCV)[facility]: 01-78-2201Osnjfmirpgqs 0-64 years Vaccine (1 of 1 - PPSV23)Pneumococcal 0-64 years Vaccine (1 of 1 - PPSV23)[facility]: 1981 Pneumococcal 0-64 years Vaccine (1 of 2 - PCV)Pneumococcal 0-64 years Vaccine (1 of 2 - PCV)[facility]: 38-59-5645Wwkzmbbcnsip 0-64 years Vaccine (1 of 2 - PPSV23)Pneumococcal 0-64 years Vaccine (1 of 2 - PPSV23)[facility]: 61-42-1998HMQQX-19 Vaccine (1)COVID-19 Vaccine (1)[facility] Start: 70-90-3107UZEXP-19 Vaccine (#1)COVID-19 Vaccine (#1)[facility]ENTERStart: 42-09-9797Eltevriif B vaccinationHEP B VACCINE (1 of 3 - 3-dose series)[facility] Daytontart: 43-11-8691Krssobmdx B vaccine (1 of 3 - 3-dose series)Hepatitis B vaccine (1 of 3 - 3-dose series)[facility] Start: 26-78-1172Hmlewwdpw C screeningCoshocton Regional Medical CenterStart: 63-01-7841Smxdfqf vaccinationTETANUniversity Hospitals Elyria Medical Center End: 05-23-0708Fjgcn Bank SpecimenBON [facility] Phone: comment on above:Once for 1 Occurrences starting 12/04/2021 until 12/04/2021 End: 50-91-6211Rxhhi glucose - POCTBlood glucose - POCT Point of Care Testing Routine One Time for 1 Occurrences starting 05/09/2020 until 05/09/2020[facility], KYComment on above:One Time for 1 Occurrences starting 05/09/2020 until 05/09/2020 End: 42-42-6357Ikeah glucose - POCTBlood glucose - POCT Point of Care Testing Routine One Time for 1 Occurrences starting 05/23/2020 until 05/23/2020[facility], KYComment on above:One Time for 1 Occurrences starting 05/23/2020 until 05/23/2020 End: 06-34-4577FX 125BON BANNERJumpSeat Phone: comment on above:1 Occurrences starting 07/30/2022 until 07/30/2022 End: 97-08-6616ETYTQB [employer] Phone: comment on above:1 Occurrences starting 07/30/2022 until 07/30/2022ontinuous pulse oximetryPulse oximetry, continuous Respiratory Care Routine Every 4hr until discontinued starting 12/10/2021ON BANNERJumpSeat Phone: comment on above:Every 4hr until discontinued starting 12/10/2021 End: 65-18-4288EYJYJ-19COVID-19 Lab Routine Suspected COVID-19 virus infection 1 Occurrences starting 02/04/2021 until 02/04/2021[facility]: comment on above:1 Occurrences starting 02/04/2021 until 02/04/20213995XSWQQ-82PWFHK-79 Lab Routine Suspected COVID-19 virus infection 02/04/2021 11:55 AM [facility] Hospital[facility] Work Phone: End: 81-19-4074URHIG-19 AmbulatoryCOVID-19 Ambulatory Lab Routine Viral URI with cough 1 Occurrences starting 04/02/2020 until 04/02/2020[facility] [employer] [place] Comment on above:1 Occurrences starting 04/02/2020 until 04/02/2020COVID-19 AmbulatoryCOVID-19 Ambulatory Lab Routine Viral URI with cough 04/02/2020 1:26 PM [facility] [place] End: 76-01-7286BLJ Breast - bilateral screeningBon Novita PharmaceuticalsComment on above:1 Occurrences starting 03/17/2024 until 03/17/2024 End: 34-47-6765AL LESS THAN 1 HOURFL LESS THAN 1 HOUR Imaging Routine Once for 1 Occurrences starting 05/23/2020 until 05/23/2020[facility]/Incubator MIComment on above:Once for 1 Occurrences starting 05/23/2020 until 05/23/2020 End: 20-61-5109VR UGIFL UGI Imaging Routine Once for 1 Occurrences starting 05/15/2019 until 05/15/2019[facility]: comment on above:Once for 1 Occurrences starting 05/15/2019 until 05/15/2019 End: 97-03-5742Hwoqres [Mass/volume] in Serum or PlasmaPOCT Glucose Point of Care Testing Routine One Time for 1 Occurrences starting 12/10/2021 until 11/28ON [employer] Phone: Comment on above:One Time for 1 Occurrences starting 12/10/2021 until 12/10/2021Glucose [Mass/volume] in Serum or PlasmaBON [employer] Phone: comment on above:4X Daily (AC & HS) until discontinued starting 09/08/2022s Needed until discontinued starting 09/08/2022H. PYLORI DETECTIONH. PYLORI DETECTION Lab Routine ONE TIME for 1 Occurrences starting 05/15/2019[facility]: comment on above:ONE TIME for 1 Occurrences starting 05/15/2019Initiate Oxygen Therapy ProtocolInitiate Oxygen Therapy Protocol Respiratory Care Routine Daily until discontinued starting 05/15/2019[facility]ron[facility] Work Phone: comment on above:Daily until discontinued starting 05/15/2019 End: 64-62-2462XOPIVLLQ PACU OXYGEN THERAPY PROTOCOLInitiate PACU Oxygen Therapy Protocol Respiratory Care Routine Continuous until discontinued starting 12/10/2021 [facility] above:Continuous until discontinued starting 12/10/2021 End: 28-16-7371BR Thoracic spine WO contrastBon Novita PharmaceuticalsComment on above:1 Occurrences starting 12/11/2024 until 12/11/2024Nuclear Ab [Titer] in [facility] Work Phone: Oxygen therapy [Minimum Data Set][employer] Comment on above:Daily until discontinued starting 05/09/2020Daily until discontinued starting 05/23/2020Oxygen therapy [Minimum Data Set]Initiate Oxygen Therapy Protocol Respiratory Care Routine As Needed until discontinued starting 12/10/2021 [employer] Work Phone: comtomp on above:As Needed until discontinued starting 2Oxygen therapy [Minimum Data Set]Initiate Oxygen Therapy Protocol Respiratory Care Routine As Needed until discontinued starting 09/08/2022 [employer] Work Phone: comsalm on above:As Needed until discontinued starting 09/08/2022 End: 55-55-3654Znlijgtga, urinePregnancy, urine Lab Routine One Time for 1 Occurrences starting 05/23/2020 until 05/23/2020[facility] AkronSummayPROComment on above:One Time for 1 Occurrences starting 05/23/2020 until 05/23/2020 End: 34-28-5937Lufhvsmhs, UrinePregnancy, Urine Lab Routine One Time for 1 Occurrences starting 12/10/2021 until 12/10/2021 [employer] Phone: comment on above:One Time for 1 Occurrences starting 12/10/2021 until 12/10/2021 End: 65-26-9977KZ Unspecified body region Views during surgerySt. Francis HospitalAcacia [facility]rosse PointeComment on above:One Time for 1 Occurrences starting 02/11/2023 until 02/11/2023 End: 97-23-9757MH Unspecified body region Views during surgeryDodreamsComment on above:One Time for 1 Occurrences starting 07/02/2023 until 07/02/2023Spirometry panelIncentive spirometry Respiratory Care Routine Every 2hr while awake until discontinued starting 09/08/2022 [employer] Phone: comment on above:Every 2hr while awake until discontinued starting 09/08/2022Surgical PathologySurgical Pathology Lab Routine ONE TIME for 1 Occurrences starting 05/15/2019[facility]: comment on above:ONE TIME for 1 Occurrences starting 05/15/2019Surgical PathologySurgical Pathology Lab Routine Dysmenorrhea Release Upon Ordering for 1 Occurrences starting 12/10/2021 [employer] Phone: comment on above:Release Upon Ordering for 1 Occurrences starting 12/10/2021urgical PathologySurgical Pathology Lab Routine Post endometrial ablation syndrome Pelvic pain in female Release Upon Ordering for 1 Occurrences starting 09/08/2022 [employer] Phone: comment on above:Release Upon Ordering for 1 Occurrences starting 09/08/2022 End: 22-39-9412GNPCUBMY PATHOLOGY REPORTSURGICAL PATHOLOGY REPORT Lab Routine Once for 1 Occurrences starting 09/08/2022 until 09/08/2022 [employer] Phone: comment on above:Once for 1 Occurrences starting 09/08/2022 until 09/08/2022TYPE AND SCREENTYPE AND SCREEN Blood Bank Routine Pre-op testing 12/04/2021 10:01 AM [facility] Work Phone: TYPE AND SCREENTYPE AND SCREEN Blood Bank Stat [employer] Label print 09/08/2022 6:58 AM [facility]UC[facility]IL[facility] Work Phone: xr Lumbar spine Views W right bending and W left bendingXR SPINE LUMBAR W BENDING Imaging Routine Spinal stenosis of lumbar region with neurogenic claudication 05/03/2023 12:01 PM [facility] Work Phone: Immunizations Immunization DateImmunizationNotesCare PptfjgpbCknkpbkv42-63-8099xntwieoxc, seasonal, injectable, preservative freeMHospital Corporation of America Work Phone: [phone] 269-981611739996-02-7971imkhhbben virus vaccine, unspecified formulationKeila Hemphill MD Work Phone: [facility]. Francis HospitalIdrzuq10-79-6672mpjgrddge virus vaccine, unspecified formulation[address], RD57-38-9340ogmwcwolh virus vaccine, unspecified formulation[address], XF19-25-9956uintuufdu virus vaccine, whole virusJeSelect Medical Specialty Hospital - [facility] [place], KJ28-57-0478irgtibnqt virus vaccine, unspecified formulation[address]Olvmsu81-51-9264ctbscbkbo virus vaccine, whole virusJeSelect Medical Specialty [facility] [place], ZD33-29-5357ksgaqbmkw virus vaccine, unspecified formulation[address] Payers DatePayer CategoryPayerPolicy [id number] 1.2.840.198951.1.13.172.2.7.3.138462.93739-82-5065LqtjaciQYEK BCBS OUT OF STATE xxxxxxxxxxxx 2019-Present [address] [place], [place] [address]xwjiluwtppnk [id number]690-47-7295VtjxvhpOEBQ BCBS OUT OF STATE [id number] 2019-Present [address] [place], [place] [id number] [id number]567-59-4549EycgcooHand [facility] PLU xxxxxxxxx 2016-Present [phone] [address] [place] [address]cpqzcuhyp 1.2.840.463021.1.13.239.2.7.3.092[id number] 2..1.234130.3.57[id number] 2..1.890520.3.579.2.51221-76-4804Lmvjsxa2407851 2..1.950283.3.579.2.27107-76-2399Naenapq3633802 2..1.334272.3.579.2.56262-78-0681Gupunpq0294814 2..1.167437.3.579.2.88417-60-8728Ohzxskl0005076 2..1.176635.3.579.2.40730-91-5003Rwgxayu94096151 2.0.1.257236.3.579.2.94588-75-5534Bqilfko20432587 2.0.1.673290.3.579.2.78426-13-8459Prktars096068403 2.0.1.291947.3.579.2.75404-30-5525Ffqnwej36353036 2..840.1.439086.3.579.2.41408-88-3351Nqkacvz95545821 2.16.840.1.799996.3.579.2.64359-06-2101Howdqbf61988446 2.840.1.006719.3.579.2.51339-76-4086Vxmvume472569887 2.840.1.324153.3.579.2.7592-98-8363Zrwpryb322705320 2.840.1.907395.3.579.2.6648-63-6087Omptmmo976308944 2.840.1.517227.3.579.2.5057-19-5330Wbjvpng85359702 2.840.1.155117.3.579.2.45331-96-9383Tpehhir77138991 2.840.1.374469.3.579.2.73137-09-2920Pwteljw40210798 2.840.1.712497.3.579.2.18051-56-5926Pigeqgx17776912 2.840.1.717917.3.579.2.28626-81-5764Spohzjg25763848 2.840.1.532257.3.579.2.04865-65-8674Mexwhby83141260 2.840.1.408250.3.579.2.68197-11-3651Uqbdpui320505762 2.840.1.518854.3.579.2.46202-72-9713Lumxvye239128729 2.840.1.006461.3.579.2.96044-92-2096Egxsbzm384718978 2.16.840.1.395350.3.579.2.16410-70-1272Vpzkxkj470950867 2.840.1.194814.3.579.2.30459-70-7090Zbbmuwc71552144 2.840.1.901568.3.579.2.21789-47-1968Aadbwwc17416486 2.840.1.853008.3.579.2.23984-41-7097Ewmxrks91020090 2.840.1.046431.3.579.2.07407-07-0287Kwfejsj29754081 2.840.1.415257.3.579.2.85393-92-9280Fdxsvbs44921093 2.840.1.333423.3.579.2.79089-30-1220Onkpnlk35461042 2.840.1.822994.3.579.2.15794-94-6079Ltfaaxm82311467 2.840.1.159515.3.579.2.01544-62-6843Vdbdhsa41631967 2.840.1.942483.3.579.2.22011-28-7734Uihkmgx86266575 2.840.1.870222.3.579.2.30968-63-0961Wahuadk34919359 2.840.1.666801.3.579.2.83327-94-5916Egdikgx87031234 2.840.1.180378.3.579.2.04420-33-3878Lolyrpc49242624 2.840.1.885918.3.579.2.27698-87-1473Qlopneg37412502 2.840.1.133493.3.579.2.19033-13-4283Hwpqvzb71512061 2.16.840.1.269271.3.579.2.66255-98-0178Kauezaf36274231 2.16.840.1.209820.3.579.2.31972-82-8036Spjbewd96403464 2.16.840.1.332978.3.579.2.00667-01-8527Prxihxz28924440 2.16.840.1.732861.3.579.2.42953-90-0317Boibxcw32718450 2.16.840.1.356539.3.579.2.35138-93-8269Jzyfkng37137651 2.16.840.1.654734.3.579.2.48562-21-4430Qvtttot26115821 2.16.840.1.909245.3.579.2.84723-12-1750Xmjopzj22625445 2..840.1.221951.3.579.2.48318-71-1529Irmrigg60756501 2.16.840.1.376099.3.579.2.76027-53-0225KtfxgcbPTM034251679 1.2.840.197160.1.13.239.2.7.3.780020.315Self-paySelf Pay [id number] Social History DateTypeDetailFacilityStart: 03-18-2019 End: 99-24-3174Wqlnxll smoking status NHISNever smokerGood Samaritan Hospital: 03-18-2019 End: 62-66-9442Ewnzeem intakeNoBON SECOURS [facility]: 47-34-1696Ofb Assigned At BirthNot on [facility]: 09-11-2019 End: 97-06-6197Aumgorl intakeCurrent non-drinker of alcohol (finding)[facility]: 12-20-2019 End: 68-13-2849Ulmkxgd use and exposureNever usedLouis [facility], PROStart: 11-24-2021 End: 56-36-1250Tspvyjhj to SARS-CoV-2 (event)Not sureLouis Stokes [facility] Medical Center, KYStart: 06-04-2020 End: 05-02-6719Oufptrh SDOH Jkttagktt7Dacbt Level Work Phone: start: 06-04-2020 End: 69-63-5670Dlcmhtb SDOH Food Gbddh4Hmrxn Level Work Phone: start: 07-80-6240Wsu Assigned At [facility]ertart: 06-23-2022 End: 34-13-9610Qdrcsoy intakeEx-drinker (finding)[employer]estart: 38-39-4488Frnmubx SDOH Alcohol Std Aheimh6SDS [employer] Work Phone: start: 10-23-2022 End: 03-09-1451Zogmjrs of Social functionBON BANNERNotifo [facility]ITALHas the JoinTV, gas, oil, or water [employer] threatened to shut off services in your home in past 12MoNoBON NewsHuntHow often to you have a drink containing alcohol?NeverCOBRE VALLEY REGIONAL [facility] NewsHuntHow many standard drinks containing alcohol do you have on a typical day?Patient does not drinkCOBRE VALLEY REGIONAL MEDICAL CENTER News[employer]unt(I/We) worried whether (my/our) food would run out before (I/we) got money to buy more.Never trueBON NewsHuntStart: 07-10-2012 SexFemale (finding)[facility] Medical Equipment Procedure CodeEquipment CodeEquipment Original TextEquipment IdentifierDatesTest blood sugar once daily and as [id number]: 66-92-7857Eexf blood sugar once daily and as [id number]: 28-08-6595Uozj sugar twice daily [id number]: 06-08-2019 End: 81-93-4472Xgxt blood sugar once daily and as ryfkow053587626Dqjxu: 12-08-2019 End: 17-41-8920Vnps [id number]: 78-49-5753PYZ 1 TO CHECK GLUCOSE ONCE DAILY AND IF [id number]: 05-22-0607QJV 1 TO CHECK GLUCOSE ONCE DAILY AND IF [id number]: 22-20-8409BVP DIRECTED TWICE A [id number] Start: 47-69-7800Mudpu glucose [id number]: 29-62-9610NVP DIRECTED TWICE A [id number]: each by Does not apply route daily [id number]: 38-70-1751Czwgi Morena Humphrey Dia3.2in Cir W/ Strp [employer] Absrb - [id number]_kpoUywyc: 60-21-5084Jqficgq on above:Description: Size and expiration date confirmed with surgeonOrthofix Firebird Si [id number]_jly Start: 88-16-9686Vegahwtl Firebird Yhurk2069377_fswJwgoz: 40-17-8315Mdsgstrq Firebird Si [id number]_rwvLfamn: 49-05-7024Jdt Screw 5.5-6.0 - [id number] 3525863_impStart: 48-89-8557Ubzrk Poly Solid 7.5x50 - [id number]_bvt Start: 07-51-6113Disds Poly Solid 7.5x45 - [id number]_mszKoufm: 85-21-1502Szw Ti Prebent 5.5x40 - [id number]_hrcWqbce: 10-19-2023 Goals DatePatient GoalDesired Activity/StatePersonal health goalComment on above: Therapy Problem List: SI fusion pre-op session [...] prepare for safety after surgery. (Met today) Shelter Goals: Independent core exercises for lobsterman use to prevent reoccurrence. Return to normal activity of house work/leisure/ADLs with post op therapy as ordered by surgeon if needed. Personal health goalComment on above: 04/23/23 Short Term Goals: 3 weeks Tolerate therapy well with reported improvements from patient. Shelter Goals: 6 weeks Independent & compliant with HEP including proper posture & body mechanics for half-way benefits. Decrease pain of back to <5/10 [...] Oswestry <45%. Clinical Notes 05-15-2019 to 12-25-2024 Note Date & RskuFlnqQvoschit91-03-8513 NoteNeurosurgery Clinic Note Chief Complaint: Postop. Interval History: Sarah Harris is a 49 y.o. year-old female who presents for postoperative follow-up after undergoing a thoracic laminotomy and placement of a [employer] thoracic spinal cord stimulation system on 12/14/2024. She reports that she has been doing relatively well since surgery. She reports her had attempted to modify some of the stimulation settings and her stimulation had not felt as good, but with reprogramming today by the [employer] rep she was getting good coverage in all of the regions of chronic pain. She reports no difficulties with her wounds or new neurologic symptoms. She notes some pain at the thoracic surgical site although it is improving. In review of her history, she was first seen on 11/21/2024 in kind referral from pain management in [facility] to discuss placement of a spinal cord [...] she had undergone a percutaneous trial of [employer] spinal cord stimulation by Dr. Rodriguez. During [...] a T8 laminotomy and placement of a [employer] spinal cord stimulation system on 12/14/2024. She appears to be healing well. With reprogramming by the [employer] community engagement representative she reports good coverage of her [...] team as well as the representatives from [employer]. A voice recognition system was used to compose this note. While attempts have been made to review dictation as it is transcribed, on occasion spoken words may be misinterpreted by the technology leading to omissions and inappropriate words or phrases. [1] Patient Active Problem List (more content not included)...[facility]07-18-2025 NotePatient: Sarah Harris Procedure Information Anesthesia Start Date/Time: 12/14/24 1004 Procedure: T8 Laminotomy for SCS Placement System - C-Arm, Prone on Open Ramnó Table, [employer] REP NOTIFIED 11/29 JK Location: [facility] OPERATING ROOM 03 / [facility] Operating Room Surgeons: Hunter Sánchez MD Relevant [...] Dose Status estradiol (Climara) 0.05 mg/[id number] 1 patch on the skin. Historical ProviderMD Active gabapentin (Neurontin) 300 mg capsule [id number] Yes Take 600 mg by mouth at bedtime. Historical ProviderMD 12/13/2024 Active lisinopril 5 mg tablet [id number] Yes Take 5 mg by mouth in the morning. Kasie ProviderMD 12/13/2024 Active melatonin 5 mg tablet [id number] Yes Take 5 mg by mouth at bedtime. Kasie ProviderMD 12/13/2024 Active metFORMIN (Glucophage) 1,000 mg tablet [id number] Yes Take 1 tablet by mouth with breakfast and with evening meal. Kasie ProviderMD 12/13/2024 Active montelukast (Singulair) 10 mg tablet [id number] Yes Take 10 mg by mouth at bedtime. Kasie ProviderMD 12/13/2024 Active nabumetone (Relafen) 500 mg tablet [id number] Yes Take 500 mg by mouth two times daily. Historical ProviderMD Past Week Active pantoprazole (ProtoNix) 40 mg EC tablet [id number] Yes Take 40 mg by mouth in the morning and at bedtime. Kasie ProviderMD 12/14/2024 Morning Active PARoxetine (Paxil) 30 mg tablet [id number] Yes Use 1 tablet in the mouth or throat in the morning. Kasie ProviderMD 12/14/2024 Morning Active progesterone (Prometrium) 100 mg capsule [id number] Yes Take 1 capsule by mouth at bedtime. Historical Provider, 12/13/2024 Active topiramate 50 mg tablet [id number] Yes Take 50 mg by mouth at bedtime. Historical Provider, 12/13/2024 Active verapamil SR (Calan-SR) 240 mg ER tablet [id number] Yes Take 1 tablet by mouth in the morning. Historical Provider, 12/14/2024 Morning Active Allergies Allergen Reactions Codeine [...] 3 general (GETA, p (more content not included)...[facility] 12-14-2024 NotePatient: Sarah Harris Procedure Summary Date: 12/14/24 Room / Location: [facility] OPERATING ROOM 03 / [facility] Operating Room Anesthesia Start: 1004 Anesthesia Stop: [...] PACU per anesthesia protocol. No notable events documented.[facility]07-17-2025 Note Airway Date/Time: 12/14/2024 10:14 AM Reason: [...] approach: 1 Number of other approaches attempted: 0[facility] 11-21-2024 NoteNeurosurgery Consult Chief Complaint: Chronic pain syndrome History of Present Illness: Sarah Harris is a 49 y.o. female who presents in kind referral from pain management in [facility] to discuss placement of a spinal cord [...] she had undergone a percutaneous trial of [employer] spinal cord stimulation by Dr. Rodriguez. [...] Resource Strain: Low Risk (02/04/2023) Received from [facility] Overall Financial Resource Strain (CARDIA) Difficulty of Paying Living Expenses: Not hard at all Food Insecurity: No Food Insecurity (07/19/2024) Received from [facility] Hunger Vital Sign Worried About Running Out of Food in the Last Year: Never true Ran Out of Food in the Last Year: Never true Transportation Needs: No Transportation Needs (07/19/2024) Received from [facility] [employer] [facility] PRAPARE - Transportation Lack of Transportation [...] Housing Stability: Low Risk (07/19/2024) Received from [facility] [employer] [facility] Housing Stability Vital Sign Unable to [...] 5.1 mmol/L Final (more content not included)... [facility]05-02-2025 NoteProcedure Performed by: Bing Rodriguez M.D. Procedure: Placement of [employer] contact neuro-electrode trial leads (x two) under fluoroscopic guidance *Needle Pearl Technician at the interspace below T12/L1 *Final Lead Placement Level at the top of the vertebral body T7 Indication: Pain due to Lumbar post laminectomy syndrome Anesthesia: Monitored Anesthesia Care is medically necessary for the procedure due to the procedurerequiring the patient to remain motionless for a [...] of 1% lidocaine and 0.25% bupivacaine. Two 14gauge tuouy needles were inserted to the superior aspect of the lamina just inferior to the target interspace. Then, using loss of resistance technique as well as fluoroscopic guidance, the epidural space was entered. Two [employer] Trial Stimulator Leads were then advanced under intermittent fluoroscopic guidance until the distal tip of the electrode was observed to be in position at the final position noted above. After appropriate electrode placement was achieved, stimulation was tested intraoperatively with multiple lead configurations until concordant paresthesias were obtained cov ering the areas of the patients pain. At this point, the needles and stylets were removed carefullyand the leads were secured to the skin using steri-strips. The region was covered using a sterile tegaderm bandage. The patient was escorted to the recovery area in stable condition having tolerated the procedure well. This document serves as a record of the services and decisions personally performed and made by theattending provider. It was created on his/her behalf by a trained medical cash poster. The creation of this document is based on the provider?s statements to the medical cash poster. Electronically signed by Bing Rodriguez MD 09/29/24 10:22 EDT Electronically signed by Sarah Angeles 09/29/2024 10:17 EDT Electronically signed by Sarah Angeles 09/29/2024 10:19 [facility] 09-29-2024 NoteHistory of Present Illness The patient has a longstanding history of [...] these reasons we will proceed as planned withthe pain management procedure. Procedure ? permanent spinal cord stimulator implant This patient's condition has been evaluated by myself as the LIP supervising the sedation and has been deemed appropriate for sedation on today's date. Anesthetic Plan: IV conscious sedation [place] [employer] of Anesthesiologists (ASA) Classification: Class I [...] and decisions personally performed and made by theattending provider. It was created on his/her behalf by a trained medical cash poster. The creation of this document is based on the provider?s statements to the medical cash poster. Problem List/Past Medical History Ongoing Anxiety Diabetes [...] Electronically signed by Sarah Angeles 09/29/2024 09:09 [facility] 06-01-2024 History of Present illness Narrative* Anaid Jerry, PT - 06/01/2024 1:00 PM EST Images from the original note were not included. [facility] Daily Note Date: [...] with HEP for core and LE strength.-MET Corporate Director Talent Assessment Goals Time Frame for Corporate Director Talent Assessment Goals : 12 visits Corporate Director Talent Assessment Goal 1: Pt to improve Oswestery from 25/50 to <20/50.-NOT MET Corporate Director Talent Assessment Goal 2: Pt to report worst pain 4/10 x 3 consecutive days to improve ADL abdelrahman.-NOT MET Corporate Director Talent Assessment Goal 3: Pt to have to 4/5 horiz ABD to improve pt posture.-MET Post Treatment Pain: 5/10 Time In: 1307 Time Out: 1337 Total time; 30 Timed coded min: 30 Minutes Anaid Jerry PT Date: 06/01/2024 [facility] N[facility]* Anaid Jerry PT - 06/01/2024 1:00 PM EST Images from the original note were not included. [facility] Discharge Summary Patient: [...] with HEP for core and LE strength.-MET Corporate Director Talent Assessment Goals Time Frame for Shelter Goals : 12 visits Corporate Director Talent Assessment Goal 1: Pt to improve Oswestery from 25/50 to <20/50.-NOT MET Shelter Goal 2: Pt to report worst pain 4/10 x 3 consecutive days to improve ADL abdelrahman.-NOT MET Corporate Director Talent Assessment Goal 3: Pt to have to 4/5 horiz ABD to improve pt posture.-MET Reason for Discharge Optimal Function Achieved Comments: Thank you for this referral Anaid Jerry, PT Date: 06/01/2024 documented in this encounterBon [facility] History of Present illness Narrative* Anaid Jerry, PT - 05/29/2024 1:00 PM EST Images from the original note were not included. [facility] Daily Note Date: 05/29/2024 Patient Name: Sarah Harris : 1975 (48 y.o.) Referring Provider (secondary): Dr. Hood Graham Diagnosis: S/P lumbar fusion Treatment Diagnosis: Back pain Onset Date: 10/19/23 PT Insurance Information: [facility] Total # of Visits Approved: 12 Per Physician Order Total # of Visits to Date: 10 No Show: 0 Canceled Appointment: 0 Pre-Treatment Pain: 6/10 Assessment Assessment: Pt reports she fell out [...] with HEP for core and LE strength.-MET Corporate Director Talent Assessment Goals Time Frame for Shelter Goals : 12 visits Shelter Goal 1: Pt to improve Oswestery from 25/50 to <20/50.-NOT MET Corporate Director Talent Assessment Goal 2: Pt to report worst pain 4/10 x 3 consecutive days to improve ADL abdelrahman.-NOT MET Shelter Goal 3: Pt to have to 4/5 horiz ABD to improve pt posture.-MET Post Treatment Pain: 6/10 Time In: 1303 Time Out: 1335 Timed Code Treatment Minutes: 32 Minutes Total time: 32 Minutes Anaid Jerry, PT Date: 05/29/2024 documented in this encounterBon [facility] Hospital12-19-[facility] History of Present illness Narrative* Anaid Jerry, PT - 05/18/2024 1:00 PM EST Images from the original note were not included. [facility] Daily Note Date: 05/18/2024 Patient Name: Sarah Harris : 1975 (48 y.o.) Referring Provider (secondary): Dr. Hood Graham Diagnosis: S/P lumbar fusion Treatment Diagnosis: Back pain Onset Date: 10/19/23 PT Insurance Information: BC Total # of Visits Approved: 12 Per Physician Order Total # of Visits to Date: 9 No Show: 0 Canceled Appointment: 0 Pre-Treatment Pain: 4/10 Assessment Assessment: Pt reports back pain down to 4/10 this date. Pt reports difficulty sleeping due to R SIpain. Good abdelrahman to progression of shuttle S/L [...] with HEP for core and LE strength.-MET Corporate Director Talent Assessment Goals Time Frame for Shelter Goals : 12 visits Shelter Goal 1: Pt to improve Oswestery from 25/50 to <20/50.-NOT MET Shelter Goal 2: Pt to report worst pain 4/10 x 3 consecutive days to improve ADL abdelrahman.-NOT MET Shelter Goal 3: Pt to have to 4/5 horiz ABD to improve pt posture.-MET Post Treatment Pain: 4/10 Time In: 1305 Time Out : 1340 Timed Code Treatment Minutes: 33Minutes 33Minutes Anaid Jerry PT Date: 05/18/2024 documented in this encounterBon [facility] Hospital12-16-[facility]24 History of Present illness Narrative* Anaid Jerry, PT - 05/15/2024 1:00 PM EST Images from the original note were not included. [facility] Daily Note Date: [...] 0 Pre-Treatment Pain: 4/10 Assessment Assessment: Oswestry 21/50, pt improved from IE but still has [...] with HEP for core and LE strength.-MET Shelter Goals Time Frame for Corporate Director Talent Assessment Goals : 12 visits Corporate Director Talent Assessment Goal 1: Pt to improve Oswestery from 25/50 to <20/50.-NOT MET Corporate Director Talent Assessment Goal 2: Pt to report worst pain 4/10 x 3 consecutive days to improve ADL abdelrahman.-NOT MET Shelter Goal 3: Pt to have to 4/5 horiz ABD to improve pt posture.-MET Post Treatment Pain: 4/10 Time In: 1309 Time Out : 1337 Timed Code Treatment Minutes: 28 Minutes Total Treatment Time: 28 Minutes Anaid Jerry PT Date: 05/15/2024 documented in this [facility]12-12-2024 History of Present illness Narrative* Sarah Gardner - 05/11/2024 10:30 AM EST [facility] Date: 05/11/2024 Patient Name: Sarah Harris : 1975 Left voice mail with no reason for cancel. Sarah Gardner Date: 05/11/2024 documented in this encounterBon [facility] Hospital12-10-2024 History of Present illness Narrative* Anaid Jerry, PT - 05/09/2024 11:00 AM EST Images from the original note were not included. [facility] Daily Note Date: 05/09/2024 Patient Name: Sarah Harris : 1975 (48 y.o.) Referring Provider (secondary): Dr. Hood Graham Diagnosis: S/P lumbar fusion Treatment Diagnosis: Back pain Onset Date: 10/19/23 PT Insurance Information: [employer] Total # of Visits Approved: 12 Per Physician Order Total # of Visits to Date: 7 No Show: 0 Canceled Appointment: 0 Pre-Treatment Pain: 10 Assessment Assessment: Pt followed up with physician, MRI is unremarkable, but her R SI needs sx. Pt scheduledto see Dr. Elliot Noguera on Jun 28. [...] with HEP for core and LE strength.-MET Shelter Goals Time Frame for Shelter Goals : 12 visits Corporate Director Talent Assessment Goal 1: Pt to improve Oswestery from 25/50 to <20/50.-NOT MET Corporate Director Talent Assessment Goal 2: Pt to report worst pain 4/10 x 3 consecutive days to improve ADL abdelrahman.-NOT MET Corporate Director Talent Assessment Goal 3: Pt to have to 4/5 horiz ABD to improve pt posture.-MET Post Treatment Pain: 4/10 Time In: 1057 Time Out: 1125 Timed Code Treatment Minutes: 28 Minutes Total Treatment Time: 28 Minutes Anaid Jerry, PT Date: 05/09/2024 [facility]St[facility] History of Present illness Narrative* Sarah Gardner - 05/04/2024 10:30 AM EST Physical Therapy [facility] Date: 05/04/2024 Patient Name: Sarah Harris : 1975 Pt Cancelled Appt due to Illness Sarah Gardner Date: 05/04/2024 documented in this encounterBon [facility] Hospital12-02-[facility]24 History of Present illness Narrative* Anaid Jerry PT - 05/01/2024 10:15 AM EST Images from the original note were not included. [facility] Daily Note Date: [...] Will cont x1 visit then d/c to [facility] but will await outcome of followup on [...] with HEP for core and LE strength.-MET Corporate Director Talent Assessment Goals Time Frame for Corporate Director Talent Assessment Goals : 12 visits Shelter Goal 1: Pt to improve Oswestery from 25/50 to <20/50.-NOT MET Shelter Goal 2: Pt to report worst pain 4/10 x 3 consecutive days to improve ADL abdelrahman.-NOT MET Shelter Goal 3: Pt to have to 4/5 horiz ABD to improve pt posture.-MET Post Treatment Pain: 11/07 Time In: 1016 Time Out: 1047 Timed Code Treatment Minutes: 31 Minutes Total time: 31 Minutes Anaid Jerry PT Date: 05/01/2024 * Anaid Jerry PT - 05/01/2024 10:15 AM EST Images from the original note were not included. [facility] Progress Report Date: 05/01/2024 Patient: Sarah Harris : 1975 Referring Provider (secondary): Dr. Hood Graham Diagnosis: S/P lumbar fusion Treatment Diagnosis: Back pain Onset Date: 10/19/23 PT Insurance Information: [facility] Total # of Visits Approved: 12 Per [...] with HEP for core and LE strength.-MET Shelter Goals Time Frame for Shelter Goals : 12 visits Corporate Director Talent Assessment Goal 1: Pt to improve Oswestery from 25/50 to <20/50.-NOT MET Shelter Goal 2: Pt to report worst pain 4/10 x 3 consecutive days to improve ADL abdelrahman.-NOT MET Shelter Goal 3: Pt to have to 4/5 horiz ABD to improve pt posture.-MET Anaid Jerry, PT Date: 05/01/2024 documented in this encounterBon [facility] Hospital11-26-2024 History of Present illness Narrative* Anaid Jerry, PT - 04/25/2024 10:15 AM EST Images from the original note were not included. [facility] Daily Note Date: 04/25/2024 Patient Name: Sarah Harris : 1975 (48 y.o.) Referring Provider (secondary): Dr. Hood Graham Diagnosis: S/P lumbar fusion Treatment Diagnosis: Back pain Onset Date: 10/19/23 PT Insurance Information: [facility] Total # of Visits Approved: 12 Per Physician Order Total # of Visits to Date: 5 No Show: 0 Canceled Appointment: 0 Pre-Treatment Pain: 10 Assessment Assessment: Pt reports increased soreness since last visit in chest and upper back. Decreased Tbandresistance this date with improved abdelrahman. Pt able [...] with HEP for core and LE strength.-MET Corporate Director Talent Assessment Goals Time Frame for Shelter Goals : 12 visits Shelter Goal 1: Pt to improve Oswestery from 25/50 to <20/50. Corporate Director Talent Assessment Goal 2: Pt to report worst pain 4/10 x 3 consecutive days to improve ADL abdelrahman. Corporate Director Talent Assessment Goal 3: Pt to have to 4/5 horiz ABD to improve pt posture. Post Treatment Pain: 4/10 Time In: 1022 Time Out: 1048 Timed Code Treatment Minutes: 26 Minutes Total Treatment Time: 26 Minutes Anaid Jerry PT Date: 04/25/2024 documented in this encounterBon [facility] Hospital11-21-2024 History of Present illness Narrative* Anaid Jerry PT - 04/20/2024 9:45 AM EST Images from the original note were not included. [facility] Daily Note Date: 04/20/2024 Patient Name: Sarah Harris : 1975 (48 y.o.) Referring Provider (secondary): Dr. Hood Graham Diagnosis: S/P lumbar fusion Treatment Diagnosis: Back pain Onset Date: 10/19/23 PT Insurance Information: [facility] Total # of Visits Approved: 12 Per [...] with HEP for core and LE strength. Shelter Goals Time Frame for Corporate Director Talent Assessment Goals : 12 visits Corporate Director Talent Assessment Goal 1: Pt to improve Oswestery from 25/50 to <20/50. Shelter Goal 2: Pt to report worst pain 4/10 x 3 consecutive days to improve ADL abdelrahman. Corporate Director Talent Assessment Goal 3: Pt to have to 4/5 horiz ABD to improve pt posture. Post Treatment Pain: 10 Time In: 0950 Time Out: 1020 Timed Code Treatment Minutes: 30 Minutes Total Treatment Time: 30 Minutes Anaid Jerry PT Date: 04/20/2024 documented in this encounterBon [facility] Hospital11-15-2024 History of Present illness Narrative* Anaid Jerry, PT - 04/14/2024 9:45 AM EST Images from the original note were not included. [facility] Daily Note Date: [...] with HEP for core and LE strength. Shelter Goals Time Frame for Shelter Goals : 12 visits Shelter Goal 1: Pt to improve Oswestery from 25/50 to <20/50. Shelter Goal 2: Pt to report worst pain 4/10 x 3 consecutive days to improve ADL abdelrahman. Corporate Director Talent Assessment Goal 3: Pt to have to 4/5 horiz ABD to improve pt posture. Post Treatment Pain: 6/10 R knee Time In: 0950 Time Out: 1027 Timed Code Treatment Minutes: 37 Minutes Total Treatment Time: 37 Minutes Anaid Jerry PT Date: 04/14/2024 documented in this encounterSt[facility]11-14-2024 History of Present illness Narrative* Sarah Gardner - 04/13/2024 9:30 AM EST Occupational Therapy [facility] Date: 04/13/2024 Patient Name: Sarah Harris : 1975 Pt Cancelled Appt due to Illness Sarah C Kendra Date: 04/13/2024 documented in this encounterStonesprings [facility]11-07-2024 History of Present illness Narrative* Anaid Jerry PT - 04/06/2024 11:00 AM EST Images from the original note were not included. [facility] Date: 04/06/2024 Outpatient Physical Therapy Plan of Care [facility]#: [id number] Patient: Sarah Harris : 1975 Referring Provider [...] with preexisting pain/activity limitations. Pt to benefit fromther ex for core strength and hip strengthening. [...] with HEP for core and LE strength. Shelter Goals Time Frame for Corporate Director Talent Assessment Goals : 12 visits Shelter Goal 1: Pt to improve Oswestery from 25/50 to <20/50. Corporate Director Talent Assessment Goal 2: Pt to report worst pain 4/10 x 3 consecutive days to improve ADL abdelrahman. Shelter Goal 3: Pt to have to 4/5 horiz ABD to improve pt posture. Anaid Jerry, PT Date: 04/06/2024 Date: 04/06/2024 Physician Signature By signing above or cosigning electronically, I have reviewed this Plan of Care and certify a need for medically necessary rehabilitation services. documented in this encounterBon [facility] Hospital09-16-2024 NoteI was asked to see the patient by Dr Jain due to the [...] I offered to refer her to an television news photographer for a fertilizer supervisor consult. Patient did not show any interest [...] They had no other questions or concerns. [facility]09-16-2024 NoteOrthopaedic Surgery Subjective Follow-up, Pain, and New Patient [...] Past Medical History: Diagnosis Date Diabetes mellitus ([facility]) Hypertension Objective General: Body mass index [...] Patient was seen by Zayra Lake her assistant in nursing for high BMI patient's for further intervention protocol. We recommended the patient work with her PCP and beam dyer and aim to reach a BMI of [...] answered today. Options for (more content not included)...[facility] 10-19-2023 NotePROCEDURE: XR LUMBAR SPINE 1 VW CLINICAL INFORMATION: [...] Signed by: Kalyan Lund MD 10/19/[address] [facility] NotePROCEDURE: XR CHEST (2 VW) CLINICAL INFORMATION: Preoperative [...] Signed by: Henok Iyer MD 10/01/[address] [facility] History of Present illness Narrative* Jenny Gracia - 08/02/2023 10:30 AM EST The patient is in today for her R SI joint injection.She states she had an injection by on 07/02/23 injection trigger point injection to 1-2 muscles, She states it helped for about 2 weeks. She states on 02/11/23 she had her L SI joint fused and it is doing. She states her pain is a 7/10 denise 10/10 when she is active. * Papa Prater - 08/02/2023 10:30 AM ESTAssociated Order(s): LARGE JOINT/BURSA INJECTION AND/OR ASPIRATION Post-Procedure [...] relief while anaesthetized on the right side. * Keila Hemphill MD - 08/02/2023 10:30 AM EST The patient is in today for her R SI joint injection.She states she had an injection by on 07/02/23 injection trigger point injection to 1-2 muscles, She states it helped for about 2 weeks. She states on 02/11/23 she had her L SI joint fused and it is doing. She states her pain is a 7/10 denise 10/10 when she is active. LARGE JOINT/BURSA [...] findings. Additions if any: Keila Hemphill MD, [facility] Superintendent Institution - [facility] documented in this encounterSt. [facility]03-04-2024 Instructions* Patient Instructions* Papa Moi - 08/02/2023 10:30 AM EST Patient counseled [...] effects associated with corticosteroids. documented in this [facility]02-02-2024 Miscellaneous Notes* Op Note - Elliot Zheng MD - 07/02/2023 10:15 AM EST Operative Report DATE PERFORMED: 07/02/2023 PREOPERATIVE DIAGNOSIS: [...] patient was then turned supine on the [facility], taken to recovery room in stable and satisfactory condition, having tolerated the procedure well. Dictated By: MD Elliot Umanzor MD ATTENDING /MedQ JOB: [id number] DOC: [id number] * Nursing Notes - Liss Iyer RN - 07/02/2023 10:15 AM EST Discontinued IV to left hand, catheter intact. Covered with dressing. Pt tolerated well. * Brief Op Note - Elliot Zheng MD - 07/02/2023 9:41 AM EST POST OPERATIVE/PROCEDURE NOTE Sarah Harris ([id number]) SURGEON Surgeon(s) and Role: * Elliot Zheng MD - Primary MONEY MARKET DEALER None ANESTHESIOLOGIST CLIENT SERVICE CONSULTANT: Terry Vicente APRN-[employer] SURGICAL STAFF Operating Room Coordinator: Ana Harper RN Scrub Person: Susy Michaud Operating Room Coordinator Assist: Jackelin Remy RN PROCEDURE PERFORMED Procedure(s) [...] 02, 2023 9:41 AM documented in this encounterSt. [facility]02-02-2024 Nurse Note* Nursing Notes - Liss Iyer RN - 07/02/2023 10:15 AM EST Discontinued IV to left hand, catheter intact. Covered with dressing. Pt tolerated well. [facility]02[facility] Surgery Postoperative evaluation and management note* Op Note - Elliot Zheng MD - 07/02/2023 10:15 AM EST Operative Report DATE PERFORMED: 07/02/2023 PREOPERATIVE DIAGNOSIS: [...] patient was then [facility] supine [facility] the [facility], taken to recovery room in stable and satisfactory condition, having tolerated the procedure well. Dictated By: MD Elliot Umanzor MD ATTENDING JS/MedQ JOB: [id number] DOC: [id number] [facility]02-02-2024 Hospital Discharge instructions* Discharge Instructions* Liss Iyer RN - 07/02/2023 9:48 AM EST POST SPINAL BLOCK/DISCOGRAM HOME INSTRUCTIONS Dr[facility] Activity at Home - Gentle activities [...] to schedule your next appointment. Our number [phone]. For the next 24 hours: DO NOT DRIVE OR OPERATE HEAVY MACHINERY. DO NOT DRINK ALCOHOL. DO NOT MAKE ANY LIFE OR LEGAL DECISIONS. documented in this encounterSt. [facility] HospitalStat[facility] [id number] Surgery Postoperative evaluation and management note* Brief Op Note - Elliot Zheng MD - 07/02/2023 9:41 AM EST POST OPERATIVE/PROCEDURE NOTE Sarah Hernan ([id number]) SURGEON Surgeon(s) and Role: * Elliot Zheng MD - Primary MONEY MARKET DEALER None ANESTHESIOLOGIST CLIENT SERVICE CONSULTANT: Terry Vicente APRN-CLIENT SERVICE CONSULTANT SURGICAL STAFF Operating Room Coordinator: Ana Harper RN Scrub Person: Susy Michaud Operating Room Coordinator Assist: Jackelin Remy RN PROCEDURE PERFORMED Procedure(s) [...] Zheng MD July 02, 2023 9:41 AM [facility]02-02-2024 Nurse Note* Ana Harper RN - 07/02/2023 9:37 AM EST Patient transported back to [place] [id number] via cart by HEAVENLY RODRÍGUEZ. Monitors applied and report given to HEAVENLY FERNANDEZ documented [facility] this [facility]02-02-2024 Nurse Surgical operation note* Ana Harper RN - 07/02/2023 9:37 AM EST [facility] by HEAVENLY RODRÍGUEZ. Monitors applied and report given to HEAVENLY FERNANDEZ [facility]09-14-2023 History of Present illness Narrative* Uma Epps, PT - 02/11/2023 3:55 PM EDT 02/11/23 1545 Surgery Information RN Approved Intervention [...] or tingling to bilateral LE's (wasn't present pre- operatively as well) Posture mild kyphosis Teaching patient [...] cleared to complete functional daily tasks such asdonning socks and shoes. Re-educated for log roll technique, completing with CGA. Sit to stand withCGA to FWW. She ambulated down hallway with steady gait noted. Good step length and normal walking speed. Patient requested to use restroom. She transferred on/off commode and completed pericare withSBA. She washed her hands unsupported with SBA. [...] Evaluation/Screen Completed? yes Therapist Information License # [id number] General Information Pertinent History of Current Problem Patient completed postoperative PT session at OP clinic. [facility] Level [id number] Miscellaneous Notes* Therapy Note - Sarah Lau OT - 02/11/2023 3:52 PM EDT [id number]- Attempted to initiate OT evaluation. Pt was dressed and in the wc getting ready to leavewhen I approached. Pt declined need for OT. * Nursing Notes - Margaret Ortiz RN - 02/11/2023 3:30 PM EDT Discharge instructions provided, pt states understanding and denies questions. PT in with pt at This time. * Nursing Notes - Margaret Ortiz RN - 02/11/2023 2:13 PM EDT Omero Carpenter CRNA administered benadryl for itching at this time * Brief Op Note - Elliot Zheng MD - 02/11/2023 1:40 PM EDT POST OPERATIVE/PROCEDURE NOTE Sarah Harris ([id number]) SURGEON Surgeon(s) and Role: * Elliot Zheng MD - Primary MONEY MARKET DEALER Mercedes ANESTHESIOLOGIST CLIENT SERVICE CONSULTANT: Omero Carpenter APRN-CLIENT SERVICE CONSULTANT SURGICAL STAFF Operating Room Coordinator: Ana Harper RN; Ab Justin RN; Hao Barnhart RN Registered Nurse Clothing Worker: Clara Long RN Scrub Person: Susy Osborne PROCEDURE PERFORMED Procedure(s) (LRB): ARTHRODESIS SACROILIAC [...] 11, 2023 1:40 PM documented in this encounterSt. [facility] Hospital09-14-2023 Progress note* Therapy Note - Sarah Lau OT - 02/11/2023 3:52 PM EDT [id number]- Attempted to initiate OT evaluation. Pt was dressed and in the wc getting ready to leavewhen I approached. Pt declined need for OT. [facility]-14[facility] Nurse Note* Nursing Notes - Margaret Ortiz RN - 02/11/2023 3:30 PM EDT Discharge instructions provided, pt states understanding and denies questions. PT in with pt at This time. [facility] Hospital Discharge instructions* Discharge Instructions* Margaret Ortiz RN - 02/11/2023 3:[address] [facility] Post-Operative Spine Surgery Home Going Instructions [...] or pick glue from your incision, it willcome off on its own. Do not soak [...] should be taken for 6 months if youhave had a cervical, thoracic, or lumbar fusion. Your bone may not fuse or glue together if you dont follow this carefully. Please attend family, community and voodoo events as soon as possible after your [...] facility the x-ray prescription should be faxed. * Attachments The following attachments cannot be sent through Care Everywhere. * scopolamine transdermal (Israeli) documented [facility] this [facility]09-14-2023 Nurse Note* Nursing Notes - Margaret Ortiz RN - 02/11/2023 2:13 PM EDT Omero Carpenter CRNA administered benadryl for itching at this time [facility]14[facility] Nurse Note* Ana Harper RN - 02/11/2023 1:55 PM EDT Patient transported via cart to PACU area by HEAVENLY HARTLEY and COLETTE NOBLE. Monitors applied and report given to JIMRN and DANYELLRN documented in this [facility]09-14-2023 Nurse Surgical operation note* Ana Harper RN - 02/11/2023 1:55 PM EDT Patient transported via cart to PACU area by HEAVENLY HARTLEY and COLETTE NOBLE. Monitors applied and report given to HEAVENLY FERNANDEZ and DANYELLRN [facility]-14[facility] Surgery Postoperative evaluation and management note* Brief Op Note - Elliot Zheng MD - 02/11/2023 1:40 PM EDT POST OPERATIVE/PROCEDURE NOTE Sarah Harris ([id number]) SURGEON Surgeon(s) and Role: * Elliot Zheng MD - Primary MONEY MARKET DEALER [place]le ANESTHESIOLOGIST CLIENT SERVICE CONSULTANT: Omero Carpenter APRN-CLIENT SERVICE CONSULTANT SURGICAL STAFF Operating Room Coordinator: Ana Harper RN; Ab Justin RN; Hao Barnhart, RN Registered Nurse Clothing Worker: Clara Long RN Scrub Person: Susy Michaud; [...] Zheng MD February 11, 2023 1:[address] [facility]07-18-2023 History of Present illness Narrative* Jenny Fagan - 12/15/2022 1:30 PM EDT The patient is in today for her bilateral SI joints. She is in today for her L SI joint injection. She states her pain is achy and she feels pulling. She states her pain is a 7/10 in the office and a10/10 when she is active. The patient received a manual L troc bursa injection and she stated the injection wore off quick. Her L SI injection that she received on 10/23/22 only lasted 5-6 weeks . * Papa Prater - 12/15/2022 1:30 PM EDTAssociated Order(s): LARGE JOINT/BURSA INJECTION AND/OR [...] therapy, medications, SI belt, therapeutic injections. Inadequate lobsterman relief from therapeutic injection. 100% relief while anesthetized during guided injection to the Left sacroiliac joint on 08/14/2022. 100% relief while anesthetized during guided injection to the Left sacroiliac joint on . The patient has an absence of generalized pain or disorders. Positive Speedy's sign. Positive tenderness to the sacral sulcus [...] Dr. Zheng for surgical opinion and recommendations. * Keila Hemphill MD - 12/15/2022 1:30 PM EDT The patient is in today for her bilateral SI joints. She is in today for her L SI joint injection. She states her pain is achy and she feels pulling. She states her pain is a 7/10 in the office and a10/10 when she is active. The patient received [...] therapy, medications, SI belt, therapeutic injections. Inadequate half-way relief from therapeutic injection. 100% relief while anesthetized during guided injection to the Left sacroiliac joint on 08/14/2022. 100% relief while anesthetized during guided injection to the Left sacroiliac joint on . The patient has an absence of generalized pain or disorders. Positive Speedy's sign. Positive tenderness to the sacral sulcus [...] findings. Additions if any: Keila Hemphill MD, [facility] Superintendent Institution - [facility] documented in this encounterSt. [facility] Hospital07-[facility]23 Instructions* Patient Instructions* Papa Prater - 12/15/2022 1:30 PM EDT [...] effects associated with corticosteroids. documented in this encounterSt. Francis Hospital05-26-2023 History of Present illness Narrative* Papa Prater - 10/23/2022 1:00 PM EDTAssociated Order(s): LARGE JOINT/BURSA INJECTION AND/OR ASPIRATION: L [...] states that overall injection helped up until abouta week ago. Patient states now she has [...] avoid surgery. Rx sent for Ellen to [facility]. Sarah may call the office with any questions or concerns. Referrals: None Medications prescribed today: Ellen to [facility] in [place] Follow up plan: Sports US guided left sacroiliac joint injection with Supartz and DANCE COSTUME DESIGNER G44753, Dex J8540, Tri J3490 Severity of problem(s): [...] with corticosteroids. * Keila Hemphill MD - 10/23/2022 1:00 PM EDT Referred by: Dr Elliot Zheng Chief Complaint [...] states that overall injection helped up until abouta week ago. Patient states now she has [...] avoid surgery. Rx sent for Ellen to [facility]. Sarah may call the office with any questions or concerns. Referrals: None Medications prescribed today: Supmaurice to [facility] in [place] Follow up plan: Sports US guided left sacroiliac joint injection with Supartz and DANCE COSTUME DESIGNER U74024, Dex J8540, Tri J3490 Severity of problem(s): [...] findings. Additions if any: Keila Hemphill MD, [facility] Superintendent Institution - [facility] documented in this encounterSt. Francis Hospital05-26-2023 Instructions* Patient Instructions* Papastanislav Prater - 10/23/2022 1:00 PM EDT Patient [...] effects associated with corticosteroids. documented in this encounterSt. Francis Hospital04-26-2023 Hospital Discharge instructions* Discharge Instructions* Kelley Shannon DO - 09/23/2022 1:19 PM [...] take care of you at [facility]. In the next few days you may receive a survey by mail or e-mail asking about the care you received during this visit. Please complete this if you are able, as this feedback helps us provide the best care possible. * Attachments The following attachments cannot be sent through Care Everywhere. * Pneumonia (Israeli) documented in this [facility] Phone: [phone]) 602-774204-12-2023 Hospital course Narrative* Sanna Stoner RN - 09/09/2022 1:47 PM EDT Discussed with the patient and all questioned fully answered. She will call me if any problems arise. IV removed. Educated on how to empty J/P bulb and to keep track of output. [place] [facility] [place] documented in [facility] Phone: [phone]) 274-651004-12-2023 History of Present illness Narrative* Ashwin Zapata DO - 09/09/2022 7:58 AM EDT Gynecology Oncology Progress Note Sarah Harris is a 47 y.o. female , POD # 1 s/p RALH, BSO, Lysis of Adhesions, Cystoscopy Patient seen and examined. Pain is controlled. Patient is tolerating oral intake. She is urinating well. She denies any heavy vaginal bleeding. She is ambulating. She is passing flatus. JAMARI drain withserosanguinous fluid. She denies Fever/Chills, Chest Pain, SOB, N/V, Calf Pain. Vitals: Vitals: 09/08/22 2013 09/08/22 2104 09/09/22 0045 09/09/22 0353 BP: 126/78 [...] # 1.55 1.10 - 3.70 k/uL Absolute [place] # 0.84 0.10 - 1.20 k/uL Absolute [...] for discharge today with close outpatient follow up.Patient JAMARI drain will remain in place with [...] concerns. Ashwin Zapata DO OBGYN Resident Pgr: [phone] 09/09/2022, 7:58 AM * Clemencia Gambino MD - 09/08/2022 7:55 AM EDT Customer Acquisition Manager Oncology Attending Note Patient seen and evaluated [...] OR today as scheduled CV Beth NOBLE * Darlene Figueroa RN - 09/07/2022 9:50 AM EDT Spoke with Juani at Dr. Campos's office. Informed that pt has been taking Celebrex 200 mg BID withmost recent dose this a.m. States that she will inform Dr. Campos. documented in this [facility] Phone: [phone] Evaluation note* Diagnosis Pelvic mass- Primary Abdominal or pelvic [...] obstruction or gangrene documented in this encounter [facility] Phone: [phone] History of Present illness Narrative* Dayanna Springer, PT - 08/17/2022 9:00 AM EDT Images from the original note were not included. [facility] Daily Note Date: 08/17/2022 Patient Name: Sarah Harris : 1975 (47 y.o.) Referring Provider (secondary): Dr Elliot Zheng Diagnosis: M46.1- sacroilitis;M47,26 Lumbar spondylosis with radiculopathy Treatment Diagnosis: Back Pain Onset Date: 06/16/22 PT Insurance Information: [facility] Total # of Visits Approved: 12 Per [...] Education: On HEP Access Code: [email or web address] URL: [email or web address] Date: 08/17/2022 Prepared by: Dayanna Springer Exercises [...] back 4/10 at worst x3 days-not met Shelter Goals Time Frame for Shelter Goals : 12 Shelter Goal 1: Decrease pain low back 2/10 at worst x3 days-Met Shelter Goal 2: Improved functional mobility with Oswestry score <10/45-Met Post Treatment Pain: 0/10 Time In: 8:50 Time Out : 9:30 Timed Code Treatment Minutes: 22 Minutes Total Treatment Time: 40 Minutes Dayanna Springer PT Date: 08/17/2022 * Dayanna Springer PT - 08/17/2022 9:00 AM EDT Images from the original note were not included. [facility] Progress Report Date: 08/17/2022 [id number] Patient: Sarah Harris : 1975 Referring Provider (secondary): Dr Elliot Zheng Diagnosis: M46.1- sacroilitis;M47,26 Lumbar spondylosis with radiculopathy Treatment Diagnosis: Back Pain Onset Date: 06/16/22 PT Insurance Information: BS Total # of Visits Approved: 12 Per Physician Order Total # of Visits to Date: 8 Canceled Appointment: 1 Assessment Assessment: Patient reports Dr gave her [...] back 4/10 at worst x3 days-not met Corporate Director Talent Assessment Goals Time Frame for Shelter Goals : 12 Shelter Goal 1: Decrease pain low back 2/10 at worst x3 days-Met Shelter Goal 2: Improved functional mobility with Oswestry score <10/45-Met Dayanna Springer, PT Date: 08/17/2022 documented in this encounterB[facility]NERIn[facility] Work Phone: [phone] History of Present illness Narrative* Jenny Fagan [...] findings. Additions if any: Keila Hemphill MD, [facility] Superintendent Institution - [facility] documented in this encounterSt. Francis Hospital03-16-2023 History of Present illness Narrative* Jenny [...] Sports US guided left sacroiliac joint injection 23541 J1100, J3301 Severity of problem(s): mild Risk of morbidity or complication from the condition and/or additional testing or treatment: low I have reviewed, edited and added to the above note and agree with those findings. Additions if any: Keila Hemphill MD, [facility] Superintendent Institution - [facility] documented in this encounterSt. Francis Hospital03-14-2023 History of Present illness Narrative* Sarah Tony - 08/11/2022 9:00 AM EDT Images from the original note were not included. [facility] Daily Note Date: [...] low back 4/10 at worst x3 days Shelter Goals Time Frame for Shelter Goals : 12 Shelter Goal 1: Decrease pain low back 2/10 at worst x3 days Corporate Director Talent Assessment Goal 2: Improved functional mobility with Oswestry score <10/45 Post Treatment Pain: 4/10 Time In: 0900 Time Out : 0940 Timed Code Treatment Minutes: 23 Minutes Total Treatment Time: 38 Minutes Sarah Ana Chavo DOOR FRAMER Date: 08/11/2022 documented in this encounterBON [facility] [employer] Work Phone: [phone] History of Present illness Narrative* Dayanna Springer, PT - 07/28/2022 8:30 AM EST Images from the original note were not included. [facility] Daily Note Date: [...] of Care/Certification Expiration Date: 08/31/22 Pre-Treatment Pain: 4/ Assessment Assessment: Patient reports she went to [...] low back 4/10 at worst x3 days Corporate Director Talent Assessment Goals Time Frame for Corporate Director Talent Assessment Goals : 12 Shelter Goal 1: Decrease pain low back 2/10 at worst x3 days Shelter Goal 2: Improved functional mobility with Oswestry score <10/45 Post Treatment Pain: 4/10 Time In: 8:30 Time Out : 9:05 Timed Code Treatment Minutes: 15 Minutes Total Treatment Time: 35 Minutes Dayanna Springer, PT Date: 07/28/2022 documented in this encounterBON BANNERWhere[facility] Up [facility] [employer] Work Phone: [phone] 151-669902-22-2023 History of Present illness Narrative* Dayanna Springer, PT - 07/22/2022 9:30 AM EST Images from the original note were not included. [facility] Daily Note Date: [...] low back 4/10 at worst x3 days Corporate Director Talent Assessment Goals Time Frame for Shelter Goals : 12 Shelter Goal 1: Decrease pain low back 2/10 at worst x3 days Corporate Director Talent Assessment Goal 2: Improved functional mobility with Oswestry score <10/45 Post Treatment Pain: 5/10 Time In: 9:30 Time Out : 10:10 Timed Code Treatment Minutes: 20 Minutes Total Treatment Time: 40 Minutes Dayanna Springer, PT Date: 07/22/2022 documented in this encounterBON [facility] Work Phone: [phone] History of Present illness Narrative* Dayanna Springer, PT - 07/20/2022 8:00 AM EST Images from the original note were not included. [facility] Evaluation Date: 07/20/2022 [...] low back 4/10 at worst x3 days Shelter Goals Time Frame for Corporate Director Talent Assessment Goals : 12 Corporate Director Talent Assessment Goal 1: Decrease pain low back 2/10 at worst x3 days Shelter Goal 2: Improved functional mobility with Oswestry score <10/45 Patient's Goal: Be rid of back pain Total Treatment Time: 45 Time In: 8:00 Time Out: 8:45 Dayanna Springer, PT Date: 07/20/2022 documented in this encounterBON [facility] Phone: [phone] History of Present illness Narrative* Jenny Fagan [...] Negative straight leg raise and crossover sign. SPEEDY Positive NEYDA Positive Vascular: Intact and symmetric [...] CALCULI/DEBRIS PERCUTANEOUS W/ IMAGE 2009 HERNIA REPAIR Constitutional No fevers, chills or [...] Negative straight leg raise and crossover sign. SPEEDY Positive NEYDA Positive Vascular: Intact and symmetric [...] findings. Additions if any: Keila Hemphill MD, [facility] Superintendent Institution - [facility] documented in this encounterSt. Francis Hospital01-24-2023 Instructions* Patient Instructions* Jose London ATC [...] effects associated with corticosteroids. [facility] this [facility]11-07-[facility]22 History of Present illness Narrative* Dayanna Springer, PT - 04/06/2022 8:00 AM EST Images from the original note were not included. [facility] Daily Note Date: 04/06/2022 Patient Name: Sarah Harris : 1975 (46 y.o.) Referring Provider (secondary): Dr. Ministerio Martínez and Dr. Sloan Diagnosis: Lumbosacral Spinal Stenosis, Pain in hip, pain in thigh Treatment Diagnosis: Back Pain Onset Date: 01/21/22 PT Insurance Information: [facility] Total # of Visits Approved: 12 Per [...] by pain-Met STG Goal 3 Status:: Met Shelter Goals Time Frame for Corporate Director Talent Assessment Goals : 12 Shelter Goal 1: Decrease pain low back 2/10 at worst x3 days-Not Met Shelter Goal 2: Improved functional mobility with Oswestry score <10/45- Not MET Post Treatment Pain: 4/10 Time In: 8:00 Time Out : 8:35 Timed Code Treatment Minutes: 35 Minutes Total Treatment Time: 35 Minutes Dayanna Springer, PT Date: 04/06/2022 documented in this encounterBON [facility]NERJ[facility] Phone: [phone] Hospital course Narrative* Dayanna Springer, PT - 04/06/2022 8:00 AM EST Images from the original note were not included. [facility] Discharge Summary Patient: Sarah Harris : 1975 Referring Provider (secondary): Dr. Ministerio Martínez and Dr. Sloan Diagnosis: Lumbosacral Spinal Stenosis, Pain in hip, pain in thigh Date Treatment Initiated: 02/24/22 Date of Last Treatment: 04/06/22 PT Visit Information Onset Date: 01/21/22 PT Insurance Information: [facility] Total # of Visits to Date: 10 [...] Springer, PT Date: 04/06/2022 documented in this encounterLOVELL [facility]ITALJump[facility] Phone: [phone] History of Present illness Narrative* Jenn Carrasco - 04/01/2022 8:30 AM EDT Images from the original note were not included. Physical Therapy [facility] Daily Note Date: [...] by pain-Met STG Goal 3 Status:: Met Corporate Director Talent Assessment Goals Time Frame for Corporate Director Talent Assessment Goals : 12 Corporate Director Talent Assessment Goal 1: Decrease pain low back 2/10 at worst x3 days Corporate Director Talent Assessment Goal 2: Improved functional mobility with Oswestry score <10/45 Post Treatment Pain: 5/10 Time In: 0823 Time Out : 0901 Timed Code Treatment Minutes: 38 Minutes Total Treatment Time: 38 Minutes Jenn Armstrong Luna ,DOOR FRAMER Date: 04/01/2022 documented in this encounterBON [facility] [employer] Work Phone: [phone] History of Present illness Narrative* Dayanna Springer, PT - 03/24/2022 11:15 AM EDT Images from the original note were not included. [facility] Daily Note Date: [...] by pain-Met STG Goal 3 Status:: Met Corporate Director Talent Assessment Goals Time Frame for Shelter Goals : 12 Corporate Director Talent Assessment Goal 1: Decrease pain low back 2/10 at worst x3 days Corporate Director Talent Assessment Goal 2: Improved functional mobility with Oswestry score <10/45 Post Treatment Pain: 2/10 Time In: 11:15 Time Out : 11:55 Timed Code Treatment Minutes: 40 Minutes Total Treatment Time: 40 Minutes Dayanna Springer, PT Date: 03/24/2022 documented in this encounterBON [facility] Work Phone: [phone]) 745-786310-20-2022 History of Present illness Narrative* Jenn Carrasco - 03/19/2022 11:15 AM EDT Images from the original note were not included. Physical Therapy [facility] Daily Note Date: [...] by pain STG Goal 3 Status:: Met Shelter Goals Time Frame for Corporate Director Talent Assessment Goals : 12 Corporate Director Talent Assessment Goal 1: Decrease pain low back 2/10 at worst x3 days Corporate Director Talent Assessment Goal 2: Improved functional mobility with Oswestry score <10/45 Post Treatment Pain: 2/10 Time In: 1115 Time Out : 1153 Timed Code Treatment Minutes: 39 Minutes Total Treatment Time: 39 Minutes Jenn Carrasco ,DOOR FRAMER Date: 03/19/2022 documented in this encounterBON BANNERWhere[facility] Up [facility] [employer] Work Phone: [phone] History of Present illness Narrative* Dayanna Springer, PT - 03/17/2022 12:45 PM EDT Images from the original note were not included. [facility] Daily Note Date: [...] by pain STG Goal 3 Status:: Met Corporate Director Talent Assessment Goals Time Frame for Shelter Goals : 12 Corporate Director Talent Assessment Goal 1: Decrease pain low back 2/10 at worst x3 days Corporate Director Talent Assessment Goal 2: Improved functional mobility with Oswestry score <10/45 Post Treatment Pain: 0/10 Time In: 12:45 Time Out : 13:25 Timed Code Treatment Minutes: 40 Minutes Total Treatment Time: 40 Minutes Dayanna Springer, PT Date: 03/17/2022 documented in this encounterBON [facility] Work Phone: [phone]) [phone] History of Present illness Narrative* Jenn Carrasco - 03/05/2022 11:15 AM EDT Images from the original note were not included. Physical Therapy [facility] Daily Note Date: [...] for 15 minutes before limited by pain Shelter Goals Time Frame for Shelter Goals : 12 Shelter Goal 1: Decrease pain low back 2/10 at worst x3 days Corporate Director Talent Assessment Goal 2: Improved functional mobility with Oswestry score <10/45 Post Treatment Pain: 5/10 Time In: 1109 Time Out : 1150 Timed Code Treatment Minutes: 41 Minutes Total Treatment Time: 41 Minutes Jenn Carrasco ,DOOR FRAMER Date: 03/05/2022 documented in this encounterBON [facility]NERWhere[facility] Up [facility] [employer] Phone: [phone] History of Present illness Narrative* Dayanna Springer, PT - 03/03/2022 11:00 AM EDT Images from the original note were not included. [facility] Daily Note Date: 03/03/2022 Patient Name: Sarah Harris : 1975 (46 y.o.) Referring Provider (secondary): Dr. Ministerio Martínez Diagnosis: Lumbosacral Spinal Stenosis, Pain in hip, pain in thigh Treatment Diagnosis: Back Pain Onset Date: 01/21/22 PT Insurance Information: [facility] Total # of Visits Approved: 12 Per [...] for 15 minutes before limited by pain Shelter Goals Time Frame for Corporate Director Talent Assessment Goals : 12 Corporate Director Talent Assessment Goal 1: Decrease pain low back 2/10 at worst x3 days Shelter Goal 2: Improved functional mobility with Oswestry score <10/45 Post Treatment Pain: 2/10 Time In: 11:00 Time Out : 11:45 Timed Code Treatment Minutes: 45 Minutes Total Treatment Time: 45 Minutes Dayanna Springer, PT Date: 03/03/2022 documented in this encounterBON [facility] [employer] Work Phone: [phone] History of Present illness Narrative* Dayanna Springer, PT - 02/24/2022 3:30 PM EDT Images from the original note were not included. [facility] Evaluation Date: 02/24/2022 [...] disability. 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 Pain 4-9/10 in low back [...] Medium Complexity Education: On POC and HEP medbridge Access Code [email or web address] Goals Short Term Goals Time Frame for Short term goals: 8 Short term goal 1: Patient to be independent with HEP Short term goal 2: Patient to demonstrate understanding for improved posture following back education Short term goal 3: Patient to be able to stand or walk for 15 minutes before limited by pain Shelter Goals Time Frame for moth exterminator goals : 12 moth exterminator goal 1: Decrease pain low back 2/10 at worst x3 days FDC goal 2: Improved functional mobility with Oswestry score <10/45 Patient's Goal: Be able to walk dog and complete activities without pain interfering Timed Code Treatment Minutes: 15 Minutes Total Treatment Time: 45 Time In: 15:38 Time Out: 16:23 Dayanna Springer, PT Date: 02/24/2022 documented in this encounterLOVELL [facility]AL [facility]ITALJ[facility] Phone: [phone] Hospital Discharge instructions* Discharge Instructions* Adrien Somers MD - 12/20/2021 12:49 PM EDT Begin taking your first dose of prednisone at home tomorrow. In place of Benadryl, use the Atarax as prescribed. Use caution as this may cause drowsiness. Do not drive or perform other dangerous activity while taking this medication. Additionally, you may use xxfy-juu-zqwvlzw calamine or Caladryl for extra symptom relief. Return to the ED for worsening rash, development of fever, pain or other concerns. * Attachments The following attachments cannot be sent through Care Everywhere. * Allergic Reaction (Israeli) * Rash (Israeli) documented in this encounterLOVELL GENERAL [facility]OSPITALJumpSeat Phone: [phone]) [phone] Hospital Discharge instructions* Instructions* Mira Mcwilliams RN [...] In the meantime, you may take an vxxf-gtm-pqatptb analgesic (Tylenol, Anacin, etc.) and use a heating pad applied to the lower abdomen. Please call the office as soon as possible for a post-operative visit in two weeks. If you experience any unusual amount of bleeding or side effects that you cannot readily explain, please do not hesitate to call the office. documented in this encounterBON [facility] Work Phone: [phone]) [phone] History of Present illness Narrative* Mira Mcwilliams [...] responsible adult. Yes documented in this encounterBON [facility] Phone: [phone]) [phone] History of Present illness Narrative* Danial Iyer [...] reviewed with the patient as well as G skin prep instructions. Verbalizes understanding. * Danial Iyer RN - 12/04/2021 10:00 AM EDT [facility] Preadmission Testing Name: Sarah Harris : [...] in PAT? Yes documented in this encounterBON [facility] Phone: [phone]) 534-620308-05-2021 NotePROCEDURE: XR ANKLE RT MIN 3 VIEWS [...] Electronically authenticated by: ANA ELIAS Date: 2021-01-02 16:24[facility] History of Present illness Narrative* Mariajose Mas [...] operate motor Vehicle. Yes documented in this encounterSelect [facility] AkronCover[facility] Phone: evaluation note* Diagnosis Iron deficiency anemia due to chronic blood loss Iron deficiency anemia secondary to blood loss (chronic) documented in this encounter [facility] Phone: evalqzodrl note* Diagnosis Suspected COVID-19 virus infection documented in this encounter [facility] Phone: evaluation note* Diagnosis Iron deficiency anemia due to chronic blood loss Iron deficiency anemia secondary to blood loss (chronic) Type 2 diabetes mellitus without complication, without long-term current use of insulin (HCC) documented in this encounter [facility] Phone: evalavdlls note* Diagnosis Adverse effect of drug, initial encounter- Primary documented in this encounter [facility] Phone: evalrtqkha note* Diagnosis Type 2 diabetes mellitus without complication, without long-term current use of insulin (HCC) Encounter for hepatitis C screening test for low risk patient Iron deficiency anemia due to chronic blood loss Iron deficiency anemia secondary to blood loss (chronic) documented in this encounter [facility] Phone: [email or web address] note* Diagnosis Pre-op testing Preoperative examination, unspecified Dysmenorrhea documented in this encounter [employer] Phone: evaluation note* Diagnosis Dysmenorrhea documented in this encounter [employer] Phone: evalklinun note* Diagnosis Rash- Primary Rash and other nonspecific skin eruption Allergic reaction, initial encounter documented in this encounter [employer] Phone: evaluztmlz noteNo assessment information available [facility] Work Phone: Evaluation note* Diagnosis Chronic bilateral low back pain with bilateral sciatica documented in this encounter [employer] Phone: evalrtwwtu note* Diagnosis Low back pain, unspecified back pain laterality, unspecified chronicity, unspecified whether sciatica present documented in this encounter [employer] Phone: evalkmbica note* Diagnosis Osteoarthritis of both sacroiliac joints- Primary Pain of both sacroiliac joints Disorders of sacrum Other spondylosis with radiculopathy, lumbar region Spinal stenosis, lumbar region with neurogenic claudication [facility]* Diagnosis Left ovarian cyst Other and unspecified ovarian cyst documented in this encounter [employer] Phone: evalywruby note* Diagnosis Pre-op chest exam Pre-operative respiratory examination Post endometrial ablation syndrome Pelvic pain in female Unspecified symptom associated with female genital organs documented in this encounter [employer] Phone: evaluation note* Diagnosis Osteoarthritis of both sacroiliac joints- Primary Pain of both sacroiliac joints Disorders of sacrum [facility] Diagnosis Osteoarthritis of both sacroiliac joints- Primary Pain of both sacroiliac joints Disorders of sacrum [facility] Diagnosis Pneumonia of both lower lobes due to infectious organism- Primary documented in this encounter [facility]* Diagnosis Osteoarthritis of both sacroiliac joints- Primary Pain of both sacroiliac joints Disorders of sacrum Pain of left hip [facility] Diagnosis Vertebrogenic low back pain [facility] Diagnosis Osteoarthritis of both sacroiliac joints- Primary Pain of both sacroiliac joints Disorders of sacrum documented in this encounter [facility] note* Diagnosis Elective surgery- Primary Unspecified elective surgery for purposes other than remedying health states documented in this encounter [facility] note* Diagnosis Sacroiliitis Sacroiliitis, not elsewhere classified documented in this encounter [facility] note* Diagnosis Spinal stenosis of lumbar region with neurogenic claudication Spinal stenosis, lumbar region, with neurogenic claudication [facility]* Diagnosis Osteoarthritis of both sacroiliac joints- Primary documented in this encounter [facility] note* Diagnosis Pain in right hip Pain in joint, pelvic region and thigh documented in this encounter [facility] note* Diagnosis Spinal stenosis, lumbar region with neurogenic claudication documented in this encounter [facility] note* Diagnosis Tricompartment osteoarthritis of right knee- Primary [facility]* Diagnosis Breast cancer screening by mammogram [facility] Diagnosis Rash and other nonspecific skin eruption- Primary [facility]* Diagnosis Greater trochanteric bursitis of right hip- Primary Enthesopathy of hip region Accidental fall, initial encounter documented in this [facility]* Diagnosis Left knee pain, unspecified chronicity- Primary [facility]* Diagnosis Pain, joint, shoulder, right Pain in joint, shoulder region [facility]* Diagnosis Type 2 diabetes mellitus without complication, without long-term current use of insulin (HCC) documented in this encounter [facility] note* Diagnosis Chronic pain syndrome documented in this encounter [facility] Discharge instructions* Attachments The following attachments cannot be sent through Care Everywhere. * Medication Side Effects (Israeli) [facility] Phone: [facility] Discharge instructions* Instructions* Dena Rich [...] the day after the test, use an kfjx-bms-jmqvncb spray to numb your throat. Follow-up care [...] Where can you learn more? Go to [email or web address] and sign in to your [employer] account. Enter J454 in the Search Health Information box to learn more about Upper GI Endoscopy: What to Expect at Home. If you do not have an account, please click on the Sign Up Now link. Current as of: April 06, 2018 Content Version: [id number] [employer]. Care instructions adapted under license by [employer]. If youhave questions about a medical condition or this instruction, always ask your healthcare professional. [employer] disclaims any warranty or liability for your use of this information. documented in this [facility] Phone: [facility] Discharge instructions* Attachments The following attachments cannot be sent through Care Everywhere. * Laparoscopic Hysterectomy: Post-op (Israeli) * Surgical Drain Care (Israeli) * Surgical Site Infections: Prevention: General Info (Israeli) documented in this [facility] Phone: [facility] Discharge instructions* Attachments The following attachments cannot be sent through Care Everywhere. * Knee Arthritis (Israeli) documented in this [facility] Discharge instructions* Attachments The following attachments cannot be sent through Care Everywhere. * Rash (Israeli) * Pham (Israeli) documented in this [facility] Discharge instructions* Attachments The following attachments cannot be sent through Care Everywhere. * Trochanteric Bursitis: Exercises (Israeli) documented in this [facility] Discharge instructions* Attachments The following attachments cannot be sent through Care Everywhere. * Knee Pain or Injury (Israeli) documented [facility] this [facility] (narrative)* Consultation (Routine) - ClosedSpecialtyDiagnoses / Procedures Referred By ContactReferred To ContactNeurologic Surgery Diagnoses Osteoarthritis of both sacroiliac joints Pain of both sacroiliac joints Keila Hemphill MD [address] [place] [address] Referral IDStatusReasonStart DateExpiration DateVisits RequestedVisits [id number]/18/20238/11/202411 * Radiology (Routine) - New RequestSpecialtyDiagnoses / ProceduresReferred By ContactReferred To Contact Diagnoses Osteoarthritis of both sacroiliac joints Pain of both sacroiliac joints Procedures US IMAGING FOR ORTHO Keila Hemphill MD [address] [place] [address] Referral IDStatusReasonStart DateExpiration DateVisits RequestedVisits [id number] Request/ [facility] Narrative* Auth/CertSpecialtyDiagnoses / ProceduresReferred By ContactReferred To Contact Diagnoses Dysmenorrhea SECONDARY DYSMENORRHEA Procedures MD HYSTEROSCOPY,W/ENDOMETRIAL ABLATION DILATATION AND CURETTAGE HYSTEROSCOPY CAUTERY ABLATION-Frank Licona MD [address] [place] [address] [facility] [address] [place] [address] Referral IDStatusReasonStart DateExpiration DateVisits RequestedVisits [id number] [facility] Phone: reason for visit Narrative* Imaging (Routine) - Pending ReviewSpecialtyDiagnoses / ProceduresReferred By ContactReferred To ContactRadiology Diagnoses Chronic pain syndrome Procedures MRI THORACIC SPINE WO CONTRAST Hunter Sánchez MD [address] [place] [id number] Phone: tel: fax: Referral IDStatusReasonStart DateExpiration DateVisits RequestedVisits [id number] Review/ [facility] Assessments Diagnosis Acute bronchitis, unspecified organism Diagnosis [...] No Advanced Directives Records FoundDocuments on File TypeDate RecordedPatient RepresentativeExplanationAdvance Directives and Living WillPower of AttorneyCode StatusDate ActivatedDate InactivatedCommentsFull Code 07/20/2014 9:50 AM07/20/2014 4:38 PMFull Code04/10/2013 8:41 AM04/10/2013 4:13 PM Full Code01/16/2013 7:33 AM01/16/2013 4:58 PMTypeDate RecordedPatient RepresentativeExplanationAdvance Directives and Living WillPower of AttorneyCode StatusDate ActivatedDate InactivatedCommentsFull Code05/15/2019 10:28 AM 05/15/2019 12:33 PMFull Code05/15/2019 8:17 AM05/15/2019 10:28 AMFull Code 07/20/2014 9:50 AM07/20/2014 4:38 PMFull Code04/10/2013 8:41 AM04/10/2013 4:13 PM Full Code01/16/2013 7:33 AM01/16/2013 4:58 PMCode StatusDate ActivatedDate InactivatedCommentsFull Code05/15/2019 10:28 AM05/15/2019 12:33 PMFull Code 05/15/2019 8:17 AM05/15/2019 10:28 AMFull Code07/20/2014 9:50 AM07/20/2014 4:38 PM TypeDate RecordedPatient RepresentativeExplanationACP-Advance DirectiveACP-Power of AttorneyTypeDate RecordedPatient RepresentativeExplanationACP-Advance DirectiveACP-Power of AttorneyCode StatusDate ActivatedDate InactivatedComments Full Code05/09/2020 11:09 AMFull Code05/15/2019 10:28 AM05/15/2019 12:33 PMCode StatusDate ActivatedDate InactivatedCommentsFull Code05/23/2020 6:56 AM 05/23/2020 12:41 PMFull Code05/09/2020 11:09 AM05/09/2020 3:43 PMCode StatusDate ActivatedDate InactivatedCommentsFull Code05/09/2020 11:09 AM05/09/2020 3:43 PM Code StatusDate ActivatedDate InactivatedCommentsFull Code05/23/2020 6:56 AMCode StatusDate ActivatedDate InactivatedCommentsFull Code05/23/2020 6:56 AM 05/23/2020 12:41 PMFull Code05/09/2020 11:09 AM05/09/2020 3:43 PMFull Code 05/15/2019 10:28 AM05/15/2019 12:33 PMCode StatusDate ActivatedDate Inactivated CommentsFull Code05/15/2019 10:28 AMNameRelationshipHealthcare Agent RelationshipCommunicationNeil YoungSpousePrimary Decision Maker* NameRelationshipHealthcare Agent RelationshipCommunicationNeil YoungSpouse Primary Decision Maker* Code StatusDate ActivatedDate InactivatedCommentsFull Code12/10/2021 12:29 PMFull Code05/23/2020 6:56 AM05/23/2020 12:41 PMNameRelationshipHealthcare Agent RelationshipCommunicationNeil YoungSpousePrimary Decision Maker* Code StatusDate ActivatedDate InactivatedCommentsFull Code12/10/2021 12:29 PM 12/10/2021 4:31 PMFull Code05/23/2020 6:56 AM05/23/2020 12:41 PMNameRelationship Healthcare Agent RelationshipCommunicationNeil YoungSpousePrimary Decision Maker * NameRelationshipHealthcare Agent RelationshipCommunicationNeil YoungSpouse Primary Decision Maker* Advance Directive Response Recorded Date/ Time Advance Directives No December 16 11:27am NameRelationshipHealthcare Agent RelationshipCommunicationNeil YoungSpouse Primary Decision Maker* NameRelationshipHealthcare Agent RelationshipCommunicationNeil YoungSpouse Primary Decision Maker* NameRelationshipHealthcare Agent RelationshipCommunicationNeil YoungSpouse Primary Decision Maker* NameRelationshipHealthcare Agent RelationshipCommunicationNeil YoungSpouse Primary Decision Maker* NameRelationshipHealthcare Agent RelationshipCommunicationNeil YoungSpouse Primary Decision Maker* Code StatusDate ActivatedDate InactivatedCommentsFull Code12/10/2021 12:29 PM 12/10/2021 4:31 PMNameRelationshipHealthcare Agent RelationshipCommunicationNeil YoungSpousePrimary Decision Maker* NameRelationshipHealthcare Agent RelationshipCommunicationNeil YoungSpouse Primary Decision Maker* NameRelationshipHealthcare Agent RelationshipCommunicationNeil YoungSpouse Primary Decision Maker* Code StatusDate ActivatedDate InactivatedCommentsFull Code09/08/2022 6:19 AMCode StatusDate ActivatedDate InactivatedCommentsFull Code12/10/2021 12:29 PM12/10/2021 4:31 PMFull Code05/23/2020 6:56 AM05/23/2020 12:41 PMFull Code05/09/2020 11:09 AM05/09/2020 3:43 PMFull Code05/15/2019 10:28 AM05/15/2019 12:33 PMName RelationshipHealthcare Agent RelationshipCommunicationNeil YoungSpousePrimary Decision Maker* Code StatusDate ActivatedDate InactivatedCommentsFull Code09/08/2022 6:19 AM 09/09/2022 3:54 PMCode StatusDate ActivatedDate InactivatedCommentsFull Code 12/10/2021 12:29 PM12/10/2021 4:31 PMFull Code05/23/2020 6:56 AM05/23/2020 12:41 PMFull Code05/09/2020 11:09 AM05/09/2020 3:43 PMFull Code05/15/2019 10:28 AM 05/15/2019 12:33 PMNameRelationshipHealthcare Agent RelationshipCommunication Osmani YoungSpousePrimary Decision Maker* Code StatusDate ActivatedDate InactivatedCommentsFull Code10/19/2023 8:54 AM 10/22/2023 2:37 PMCode StatusDate ActivatedDate InactivatedCommentsFull Code 09/08/2022 6:19 AM09/09/2022 3:54 PMFull Code12/10/2021 12:29 PM12/10/2021 4:31 PM Full Code05/23/2020 6:56 AM05/23/2020 12:41 PMFull Code05/09/2020 11:09 AM 05/09/2020 3:43 PMNameRelationshipHealthcare Agent RelationshipCommunicationNeil YoungSpousePrimary Decision Maker* Date ActivatedDate InactivatedComments10/19/2023 8:54 AM10/22/2023 2:37 PMDate ActivatedDate InactivatedComments09/08/2022 6:19 AM09/09/2022 3:54 PMDate ActivatedDate InactivatedComments12/10/2021 12:29 PM12/10/2021 4:31 PMDate ActivatedDate YzrruhyutceWojyljvk64/24/2020 6:56 AM05/23/2020 12:41 PMDate ActivatedDate XfmnsqowgegNbfmicuj24/10/2020 11:09 AM05/09/2020 3:43 PMName RelationshipHealthcare Agent RelationshipCommunicationNeil YoungSpousePrimary Decision Maker* * Date ActivatedDate InactivatedComments10/19/2023 8:54 AM10/22/2023 2:37 PMDate ActivatedDate InactivatedComments09/08/2022 6:19 AM09/09/2022 3:54 PMDate ActivatedDate InactivatedComments12/10/2021 12:29 PM12/10/2021 4:31 PMDate ActivatedDate DzrhwtxkjumVenrheef91/24/2020 6:56 AM05/23/2020 12:41 PMDate ActivatedDate WptpjgpwlobCdutxvbc86/10/2020 11:09 AM05/09/2020 3:43 PMName RelationshipHealthcare Agent RelationshipCommunicationNeil YoungSpousePrimary Decision Maker* * NameRelationshipHealthcare Agent RelationshipCommunicationNeil YoungSpouse Primary Decision Maker* * NameRelationshipHealthcare Agent RelationshipCommunicationNeil YoungSpouse Primary Decision Maker* * NameRelationshipHealthcare Agent RelationshipCommunicationNeil YoungSpouse Primary Decision Maker* * NameRelationshipHealthcare Agent RelationshipCommunicationNeil YoungSpouse Primary Decision Maker* * NameRelationshipHealthcare Agent RelationshipCommunicationNeil YoungSpouse Primary Decision Maker* * NameRelationshipHealthcare Agent RelationshipCommunicationNeil YoungSpouse Primary Decision Maker* * NameRelationshipHealthcare Agent RelationshipCommunicationNeil YoungSpouse Primary Decision Maker* * NameRelationshipHealthcare Agent RelationshipCommunicationNeil YoungSpouse Primary Decision Maker* * NameRelationshipHealthcare Agent RelationshipCommunicationNeil YoungSpouse Primary Decision Maker* * NameRelationshipHealthcare Agent RelationshipCommunicationNeil YoungSpouse Primary Decision Maker* * Reason for Referral StatusReasonSpecialtyDiagnoses / ProceduresReferred By ContactReferred To ContactPending ReviewRadiology Diagnoses Breast cancer screening by mammogram Procedures DANIELLE DIGITAL SCREEN W OR WO CAD BILATERAL Yonley, Zayra L, DO [address] [place] [address] SpecialtyDiagnoses / ProceduresReferred By ContactReferred To ContactCardiology Diagnoses Pre-op testing Procedures EKG 12 Lead Frank Pickering MD [address] [facility] [address] [place] [address] Referral IDStatusReasonStart DateExpiration DateVisits RequestedVisits [id number] Review7/[id number] / ProceduresReferred By ContactReferred To ContactRadiology Diagnoses Chronic bilateral low back pain with bilateral sciatica M54.42, M54.41, G89.29 (ICD-10-CM) - Chronic bilateral low back pain with bilateral sciatica Procedures MRI LUMBAR SPINE WO CONTRAST MD MRI, LUMBAR SPINE 68352 - MD MRI, LUMBAR SPINE Zayra Sloan, DO [address] [place] [address] Referral IDStatusReasonStart DateExpiration DateVisits RequestedVisits [id number]/16/20222/[id number] / Procedures Referred By ContactReferred To ContactCardiology Diagnoses Pre-op chest exam Procedures EKG 12 lead Tino Sánchez PA-C [address] [facility] [address] [place] [address] Referral IDStatusReasonStart DateExpiration DateVisits RequestedVisits [id number]/[id number] / ProceduresReferred By ContactReferred To Contact Diagnoses Osteoarthritis of both sacroiliac joints Pain of both sacroiliac joints Procedures US IMAGING FOR ORTHO Keila Hemphill MD [address] [place] [address] [place] [address] Referral IDStatusReasonStart DateExpiration DateVisits RequestedVisits [id number] Request/[id number] / Procedures Referred By ContactReferred To Contact Diagnoses Osteoarthritis of both sacroiliac joints Procedures US IMAGING FOR ORTHO Keila Hemphill MD [address] [facility] [place] [address] [place] [address] Referral IDStatusReasonStart DateExpiration DateVisits RequestedVisits [id number] Request/[id number] / Procedures Referred By ContactReferred To Contact Diagnoses Pain in right hip Procedures MRI PELVIS WITHOUT CONTRAST MD MRI, PELVIS, W/O CONTRAST Elliot Zheng MD [address] [place] [address] [facility] Referral IDStatusReasonStart DateExpiration DateVisits RequestedVisits [id number]/27/20243/048317PnljnqksiKaguysxzd / Procedures Referred By ContactReferred To Contact Diagnoses Spinal stenosis, lumbar region with neurogenic claudication Procedures MRI SPINE LUMBAR WITHOUT CONTRAST MD MRI, LUMBAR SPINE Elliot Zheng MD [address] [place] [address] [facility] Referral IDStatusReasonW[place] DateExpiration DateVisits RequestedVisits [id number]/27/20243/23/237305BneifvokmNraiecugg / Procedures Referred By ContactReferred To ContactRadiology Diagnoses Breast cancer screening by mammogram Procedures [facility] NANO DIGITAL SCREEN BILATERAL Tino Sánchez PA-C [address] [facility] [address] [place] [address] Referral IDStatusReasonStgillett grove DateExpiration DateVisits RequestedVisits [id number]/7/20248/7/202511 Discharge Instructions * Attachments The following attachments cannot be sent through Care Everywhere. * Sciatica (Israeli) * Sciatica: Exercises (Israeli) documented in this encounter* Instructions* Malissa Batista, [...] PAIN IS SEVERE POST INJECTION- PLEASE CALL [phone] ; CALL 911 FOR EMERGENCY documented in [...] PAIN IS SEVERE POST INJECTION- PLEASE CALL [phone] ; CALL 911 FOR EMERGENCY documented in [...] PAIN IS SEVERE POST INJECTION- PLEASE CALL [phone] ; CALL 911 FOR EMERGENCY documented in [...] PAIN IS SEVERE POST INJECTION- PLEASE CALL [phone] ; CALL [phone] FOR EMERGENCY documented in this encounter History [...] Rich RN - 05/23/2020 7:02 AM EST CLNU=476. documented in this encounter* Peri Stafford RN [...] Not Specified Malignant neoplasm of skin Unknown fatherDiabetes mellitusUnknown Chief Complaint and Reason for Visit Chief Complaint M79.1 M25.50 Additional Source Comments Reason for Visit (unrecogniz ed section and content) StatusReasonSpecialtyDiagnoses / ProceduresReferred By ContactReferred To ContactClosedRadiology Diagnoses Encounter for screening mammogram for malignant neoplasm of breast Procedures HC MAMMO SCREENING INCL CAD IF PERF Zayra Sloan, DO [address] [place] [address] [facility] [address] [place] [address] ReasonCommentsBack Painpatient states that her back pain started 6 days ago, no known injury, the patient was lifting a laundry basket today and the pain got worse. patient states that the pain radiates down the right leg.StatusReason SpecialtyDiagnoses / ProceduresReferred By ContactReferred To Contact Diagnoses Unilateral primary osteoarthritis, unspecified knee ARTHRITIS OF KNEE Procedures MD INJECTION AA&/STRD OTHER PERIPHERAL NERVE/BRANCH GENICULAR NERVE BLOCK BILATERAL Sukhdev Galeano MD [address] [place] [address] [employer] StatusReasonSpecialtyDiagnoses / ProceduresReferred By ContactReferred To Contact Diagnoses Bilateral primary osteoarthritis of knee arthritis of the left knee Procedures MD INJECTION AA&/STRD OTHER PERIPHERAL NERVE/BRANCH LEFT KNEE RFA Sukhdev Galeano MD [address] [address] [employer] StatusReasonSpecialtyDiagnoses / ProceduresReferred By ContactReferred To Contact Diagnoses Bilateral primary osteoarthritis of knee ARTHRITIS OF KNEE Procedures MD INJECTION AA&/STRD OTHER PERIPHERAL NERVE/BRANCH COOL RFA- RIGHT KNEE Sukhdev Galeano MD [address] [address] [employer] StatusReasonSpecialtyDiagnoses / ProceduresReferred By ContactReferred To Contact Diagnoses Bilateral primary osteoarthritis of knee ARTHRITIC BILATERAL KNEES Procedures MD OFFICE/OUTPT VISIT,PROCEDURE ONLY MD INJECTION AA&/STRD OTHER PERIPHERAL NERVE/BRANCH GENICULAR NERVE BLOCK BILATERAL KNEES Sukhdev Galeano MD [address] [address] [employer] ReasonCommentsAllergic Reactionpt reports starting adipex 8 days ago and has been having itching all over since yesterday. she didhold her medication today. StatusReasonSpecialtyDiagnoses / ProceduresReferred By ContactReferred To Contact Diagnoses Epigastric pain Gastro-esophageal reflux disease without esophagitis EPIGASTRIC PAIN, REFLUX SYMPTOMS Procedures MD OFFICE/OUTPT VISIT,PROCEDURE ONLY MD ESOPHAGOGASTRODUODENOSCOPY TRANSORAL DIAGNOSTIC EGD ESOPHAGOGASTRODUODENOSCOPY David Waters MD [address] [facility] [address] [place] [address] [facility] ReasonCommentsRashComplains of itching rash on inner thighsSpecialtyDiagnoses / ProceduresReferred By ContactReferred To ContactRadiology Diagnoses Chronic bilateral low back pain with bilateral sciatica M54.42, M54.41, G89.29 (ICD-10-CM) - Chronic bilateral low back pain with bilateral sciatica Procedures MRI LUMBAR SPINE WO CONTRAST MD MRI, LUMBAR SPINE [address]144 - MD MRI, LUMBAR SPINE Zayra Sloan, DO [address] [place] [address] Referral IDStatusReasonStart DateExpiration DateVisits RequestedVisits [id number]/16/20222/061607UnpkkwSniufkdoQtjjDhwctnwqz Diagnoses / ProceduresReferred By ContactReferred To ContactOrthopaedics Diagnoses Spinal stenosis, lumbar region with neurogenic claudication Other spondylosis with radiculopathy, lumbar region Sacroiliitis Pain in hip Elliot Zheng MD [address] [facility] [address] [address] Keila Hemphill MD [address] [place] [address] [place] [address] Referral IDStatusReasonStart DateExpiration DateVisits RequestedVisits [id number] Review/[id number] / ProceduresReferred By ContactReferred To ContactNeurosurgery Diagnoses Spinal stenosis of lumbar region with neurogenic claudication Zayra Sloan, DO [address] [place] [address] Elliot Zheng MD [address] [place] [address] Referral IDStatusReasonStart DateExpiration DateVisits RequestedVisits [id number] Specialty Services Required /[id number] / ProceduresReferred By ContactReferred To Contact Diagnoses Osteoarthritis of both sacroiliac joints Pain of both sacroiliac joints Procedures US IMAGING FOR ORTHO Keila Hemphill MD [address] [facility] [place] [address] [place] [address] Referral IDStatusReasonStart DateExpiration DateVisits RequestedVisits [id number] Request/[id number] / Procedures Referred By ContactReferred To Contact Diagnoses Post endometrial ablation syndrome Pelvic pain in female POST ABLATION SYNDROME, SEVERE PELVIC PAIN Procedures MD LAPS TOTAL HYSTERECT 250 GM/< W/RMVL TUBE/OVARY XI ROBOTIC LAPAROSCOPIC TOTAL HYSTERECTOMY, BSO, POSSIBLE EXPLORATORY LAPAROTOMY, OTHER NECESSARY PROCEDURES Clemencia Campos MD [address] [facility] [address] [place] [address] [facility] [address] [place] [address] Referral IDStatusReasonStgillett grove DateExpiration DateVisits RequestedVisits [id number]-wyBrgjatAxqxpjqgEasaTqpqtb-plOncte InjectionReasonCommentsAbdominal PainPatient recently had a hysterectomy 2 weeks ago on the in [place]. Patient had drain removed onWednesday, patient now has lower abdominal pain since drain removed. Patient had taken tylenol this AM. ReasonCommentsFollow-upLeft Sacroiliac JointReasonCommentsPainFollow-upJoint InjectionSpecialtyDiagnoses / ProceduresReferred By ContactReferred To Contact Diagnoses Sacroiliitis Sacroiliitis [M46.1] Procedures MD ARTHRODESIS SACROILIAC JOINT PERCUTANEOUS CHG FLUOROSCOPY UP TO 1 HOUR PHYSICIAN/QHP TIME MD IMPLANT/INSERT DEVICE, NOC PROSTHETIC IMPLANT NOS ARTHRODESIS SACROILIAC JOINT MINIMALLY INVASIVE W/ TRANSFIXING DEVICE FLUOROSCOPY IN OR Elliot Zheng MD [address] [place] [address] Referral IDStatusReasonStart DateExpiration DateVisits RequestedVisits [id number] / ProceduresReferred By Contact Referred To Contact Diagnoses Spinal stenosis of lumbar region with neurogenic claudication Spinal stenosis of lumbar region with neurogenic claudication [M48.062] Procedures MD INJECTION AA&/STRD OTHER PERIPHERAL NERVE/BRANCH MD INJECT TRIGGER POINT,SI/MULT, 1-2 MUSC INJECTION MUSCLE TRIGGER POINT 1 OR 2 MUSCLES Elliot Zheng MD [address] [place] [address] Referral IDStatusReasonStart DateExpiration DateVisits RequestedVisits [id number] / ProceduresReferred By Contact Referred To ContactOrthopaedics Diagnoses Sacroiliitis, not elsewhere classified Elliot Zheng MD [address] [place] [address] Keila Hemphill MD [address] [place] [address] Referral IDStatusReasonStart DateExpiration DateVisits RequestedVisits [id number] Request/[id number] / Procedures Referred By ContactReferred To Contact Diagnoses Pain in right hip Procedures MRI PELVIS WITHOUT CONTRAST MD MRI, PELVIS, W/O CONTRAST Elliot Zheng MD [address] [place] [address] [facility] Ref[facility] DateExpiration DateVisits RequestedVisits [id number]/20243/[id number] / Procedures Referred By ContactReferred To Contact Diagnoses Spinal stenosis, lumbar region with neurogenic claudication Procedures MRI SPINE LUMBAR WITHOUT CONTRAST MD MRI, LUMBAR SPINE Elliot Zheng MD [address] [place] [id number] [facility] Ref[facility]Stat[facility] DateExpiration DateVisits RequestedVisits [id number]/27/20243/23/[id number] PainPatient complains of right knee pain that has been ongoing for the past few months. States Wednesday dog jumped on patient and aggravated the knee.Specialty Diagnoses / ProceduresReferred By ContactReferred To ContactRadiology Diagnoses Breast cancer screening by mammogram Procedures [facility] NANO DIGITAL SCREEN BILATERAL Tino Sánchez, DEVAN [address] [facility] [address] [place] [address] Referral IDStausPoplar Springs Hospital DateExpiration DateVisits RequestedVisits [id number] on chest for few days, has tried OTC allergy meds with no relief.ReasonCommentsHip PainPt reports chronic right knee pain. She states she fell on morning landing on her right hip.ReasonCommentsKnee PainLeft knee pain, sudden onset this am. Nothing seems to make it better or worse. Denies trauma or history of same. Tried some icy hot without relief. Ambulatory. INFORMATION SOURCE (unrecogn ized section and content) DATE CREATED AUTHOR 04/11/2021 [facility] DATE CREATED AUTHOR AUTHOR'S ORGANIZ ATION 05/21/2021 [facility] DATE CREATED AUTHOR AUTHOR'S ORGANIZ ATION 02/06/2022 [facility] DATE CREATED AUTHOR AUTHOR'S ORGANIZ ATION 06/24/2022 [facility] DATE CREATED AUTHOR AUTHOR'S ORGANIZ ATION 2023 [facility] DATE CREATED AUTHOR AUTHOR'S ORGANIZ ATION 08/02/2023 [facility] DATE CREATED AUTHOR AUTHOR'S ORGANIZ ATION 11/03/2023 [facility] DATE CREATED AUTHOR AUTHOR'S ORGANIZ ATION 06/22/2024 [facility] DATE CREATED AUTHOR AUTHOR'S ORGANIZ ATION 10/04/2024 [facility] DATE CREATED AUTHOR AUTHOR'S ORGANIZ ATION 11/20/2024 [facility] DATE CREATED AUTHOR AUTHOR'S ORGANIZ ATION 12/19/2024 [facility] DATE CREATED AUTHOR AUTHOR'S ORGANIZ ATION 01/12/2025 [facility] Ordered Prescriptions (unrec ognized section and content) PrescriptionSigDispensedRefillsStart DateEnd Date hydrOXYzine (VISTARIL) 25 MG capsule Take 1 capsule by mouth 3 times daily as needed for Itching 20 capsule /rescriptionSigDispensedRefillsStart DateEnd HYDROcodone-acetaminophen (NORCO) 5-325 MG per tablet Indications:DysmenorrheaTake 1 tablet by mouth every 6 hours as needed for Pain for up to 3 days. 10 tablet /rescriptionSigDispensedRefillsStart DateEnd hydrOXYzine HCl (ATARAX) 25 MG tablet Take 1-2 tablets by mouth every 8 hours as needed for Itching 30 tablet predniSONE (DELTASONE) 50 MG tablet Take 1 tablet by mouth in the morning for 4 days. 4 tablet /rescriptionSigDispensedRefillsStart DateEnd simethicone (MYLICON) 80 MG chewable tablet Take 1 tablet by mouth 4 times daily as needed for Flatulence 90 tablet ondansetron (ZOFRAN) 4 MG tablet Take 1 tablet by mouth every 8 hours as needed for Nausea or Vomiting 30 tablet sennosides-docusate sodium (SENOKOT-S) 8.6-50 MG tablet Take 1 tablet by mouth daily 30 tablet oxyCODONE (ROXICODONE) 5 MG immediate release tablet Indications:Postoperative stateTake 1 tablet by mouth every 6 hours as needed for Pain for up to 5 days. Intended supply: 5 days. Take lowest dose possible to manage pain Max Daily Amount: 20 mg 20 tablet / acetaminophen (TYLENOL) 500 MG tablet Take 2 tablets by mouth every 6 hours as needed for Pain 60 tablet rescriptionSigDispensedRefillsStart DateEnd Date levoFLOXacin (LEVAQUIN) 750 MG tablet Take 1 tablet by mouth daily for 7 days 7 tablet /rescriptionSigDispensedRefillsStart DateEnd oxyCODONE-acetaminophen (ENDOCET) 5-325 MG per tablet Indications:Tricompartment osteoarthritis of right kneeTake 1 tablet by mouth every 6 hours as needed for Pain for up to 3 days. Intended supply: 3 days. Take lowest dose possible to manage pain Max Daily Amount: 4 tablets 12 tablet / diclofenac sodium (VOLTAREN) 1 % GEL Apply 4 g topically 4 times daily 50 g naproxen (NAPROSYN) 500 MG tablet Take 1 tablet by mouth 2 times daily (with meals) 180 tablet methylPREDNISolone (MEDROL, PETERSON,) 4 MG tablet Take by mouth. 1 kit /05/2023 HYDROcodone-acetaminophen (LORCET) 5-325 MG per tablet Indications:Tricompartment osteoarthritis of right kneeTake 1 tablet by mouth every 4 hours as needed for Pain for up to 3 days. Intended supply: 3 days. Take lowest dose possible to manage pain Max Daily Amount: 6 tablets 18 tablet /rescriptionSigDispensedRefillsStart DateEnd Date fluconazole (DIFLUCAN) 100 MG tablet Take 1 tablet by mouth daily for 7 days 7 tablet / loratadine (CLARITIN) 10 MG tablet Take 1 tablet by mouth daily 30 tablet /04/2025PrescriptionSigDispensedRefillsStart DateEnd Date oxyCODONE-acetaminophen (PERCOCET) 5-325 MG per tablet Indications:Left knee pain, unspecified chronicityTake 1 tablet by mouth every 6 hours as needed for Pain for up to 3 days. Intended supply: 3 days. Take lowest dose possible to manage pain Max Daily Amount: 4 tablets 12 tablet Scheduled Active and Recently Administ ered Medications (unrecognized section and content) Medication Order//07/2021 hydrOXYzine (VISTARIL) capsule 50 mg (COMPLETED) 50 mg, Oral, ONCE, On Wed06/01/21 at 1500, For 1 dose * 1502 (Given - Provider: Martha Ahumada RN) Medication Order// acetaminophen (TYLENOL) tablet 650 mg (COMPLETED) 650 mg, Oral, ONCE, 1 dose, On Wed12/10/21 at 1000, Maximum dose of acetaminophen is 4000 mg from all sources in 24 hours., Pre-op (day of surgery) * 1005 (Given - Provider: Candi Jones RN) clindamycin (CLEOCIN) 900 mg in dextrose 5 % 50 mL IVPB (COMPLETED) 900 mg, IntraVENous, ONCE, 1 dose, On Wed12/10/21 at 1000, Antimicrobial Indications: Surgical Prophylaxis, Pre-op (day of surgery) * 1152 (Given - Provider: Brittany Lucas SIGNALMAN - CLIENT SERVICE CONSULTANT) dimenhyDRINATE (DRAMAMINE) tablet 50 mg (COMPLETED) 50 mg, Oral, ONCE, 1 dose, On Wed12/10/21 at 1000, Pre-op (day of surgery) * 1005 (Given - Provider: Candi Jones RN) gentamicin (GARAMYCIN) 500 mg in dextrose 5 % 250 mL IVPB (COMPLETED) 500 mg, IntraVENous, ONCE, 1 dose, On Wed12/10/21 at 1000, Antimicrobial Indications: Surgical Prophylaxis, Pre-op (day of surgery) * 1008 (New Bag - Provider: Candi Jones RN) * 1108 (Due: Stopped - Provider: Candi Jones RN) [...] when able to take PO ibuprofen., Post-op * 1245 (Due) * 1845 (Due) sodium chloride flush 0.9 % injection 5-40 mL 5-40 mL, IntraVENous, EVERY 12 HOURS SCHEDULED (2 times per day), First dose on Wed12/10/21 at 2100, Until Discontinued, For Line Patency: Peripheral IV = 5 mL; Midline or Central Line = 10 mL/lumen.If following IV push medication, administer flush at same rate as the IV push. Flush volume is determined by type of infusion therapy being given. For non-viscous solutions use: Peripheral IV = 5 mL Midline or Central Line = 10 mL/lumen For viscous solutions (i.e. blood components, parenteral nutrition, contrast media, or after obtaining blood sample) use: Peripheral IV = 10 mL Midline or CentralLine = 20 mL/lumen, Post-op * 2100 (Due) sodium chloride flush 0.9 % injection 5-40 mL 5-40 mL, IntraVENous, EVERY 12 HOURS SCHEDULED (2 times per day), First dose on Wed12/10/21 at 2100, Until Discontinued, For Line Patency: Peripheral IV = 5 mL; Midline or Central Line = 10 mL/lumen.If following IV push medication, administer flush at same rate as the IV push. Flush volume is determined by type of infusion therapy being given. For non-viscous solutions use: Peripheral IV = 5 mL Midline or Central Line = 10 mL/lumen For viscous solutions (i.e. blood components, parenteral nutrition, contrast media, or after obtaining blood sample) use: Peripheral IV = 10 mL Midline or CentralLine = 20 mL/lumen, PACU only * 2100 (Due) Medication Order/ lactated ringers infusion IntraVENous, at 60 mL/hr, CONTINUOUS, Starting on Wed12/10/21 at 1000, Pre-op (day of surgery) * 1007 (New Bag - Provider: Candi Jones RN) * 1132 (NoRateChange - Provider: VIRGINIE Sloan CRNA) * 1214 (Paused - Provider: VIRGINIE Sloan CRNA - Comment: Switch to gravity) * 1215 (Restarted - Provider: VIRGINIE Sloan CRNA) * 1216 (Stopped - Provider: VIRGINIE Sloan CRNA) lactated ringers infusion IntraVENous, at 125 mL/hr, CONTINUOUS, Starting on Wed12/10/21 at 1245, Post-op * 1245 (Due) Medication Order// 0.9 % sodium chloride infusion IntraVENous, at [...] doses, Starting on Wed12/10/21 at 1233, Until Discontinued,Pain Severe (7-10), For Phase I. If Phase II oral narcotics have been administered in the last 60 minutes, do not administer IV narcotics unless specifically approved by provider., PACU only * 1237 (Given - Provider: Candi Jones RN) * 1243 (Given - Provider: Candi Jones RN) hydrALAZINE (APRESOLINE) injection 10 mg(Linked Group 1) 10 mg, IntraVENous, EVERY 15 MIN PRN, 2 doses, Starting on Wed12/10/21 at 1233, Until Discontinued,High Blood Pressure, for SBP greater than 180 [...] mg from all sources in 24 hours. * 1326 (Given - Provider: Mira Mcwilliams RN) labetalol (NORMODYNE;TRANDATE) injection 10 mg(Linked Group 1) 10 mg, IntraVENous, EVERY 15 MIN PRN, 2 doses, Starting on Wed12/10/21 at 1233, Until Discontinued,High Blood Pressure, for SBP greater than 180 mmHg for 2 consecutive measurements taken from different sites., If heart rate is 60 bpm or less hold labetalol and use hydralazine if ordered, otherwisecontact provider. Inform provider if SBP is still [...] For viscous solutions (i.e. blood components, parenteral nutrition,contrast media, or after obtaining blood sample) use: Peripheral IV = 10 mL Midline or Central Line= 20 mL/lumen, Post-op sodium chloride flush 0.9 [...] For viscous solutions (i.e. blood components, parenteral nutrition,contrast media, or after obtaining blood sample) use: Peripheral IV = 10 mL Midline or Central Line= 20 mL/lumen, PACU only traMADol (ULTRAM) tablet 50 mg 50 mg, Oral, ONCE PRN, 1 dose, Starting on Wed12/10/21 at 1233, Until Wed12/10/21 at 2359, Pain Moderate (4-6), Pain Severe (7-10), PHASE II, PACU only Order Group 1: labetalol (NORMODYNE;TRANDATE) injection 10 mgJump to med 10 mg, IntraVENous, EVERY 15 MIN PRN, 2 doses, Starting on Wed12/10/21 at 1233, Until Discontinued,High Blood Pressure, for SBP greater than 180 [...] doses, Starting on Wed12/10/21 at 1233, Until Discontinued,High Blood Pressure, for SBP greater than 180 [...] if oral route cannot be used.
Post-op Medication Order/// predniSONE (DELTASONE) tablet 50 mg (COMPLETED) 50 mg, Oral, ONCE, 1 dose, On Wed12/20/21 at 1300 * 1305 (Given - Provider: Johanna Gregory RN) Medication Order//04/2023 acetaminophen (TYLENOL) tablet 1,000 mg 1,000 mg, Oral, EVERY 6 HOURS, First dose on Wed09/08/22 at 1315, Until Discontinued, Maximum dose of acetaminophen is 4000 mg from all sources in 24 hours., Post-op * 1343 (Given - Provider: Brittany Cooney RN) * 1927 (Given - Provider: Brittany Cooney RN) * 0046 (Given - Provider: Margarita Yeh, HEAVENLY) * 0624 (Given - Provider: Margarita Yeh RN) * 1218 (Not Given - Provider: Sanna Stoner RN - Reason: Patient/family refused - Comment: discharged) * 191 (Due) ceFAZolin (ANCEF) 3000 mg in sterile water 30 mL IV syringe (COMPLETED) 3,000 mg, IntraVENous, ENTRY LEVEL SALES CONSULTANT TO O.R., 1 dose, On Wed09/08/22 at 0645, Antimicrobial Indications: Surgical Prophylaxis, Administer within 1 hour prior to incision. Administer over 5 mins., Pre-op (day of surgery) * 0816 (Given - Provider: Melissa Marcelino, SIGNALMAN - CLIENT SERVICE CONSULTANT) celecoxib (CELEBREX) capsule 200 mg 200 mg, Oral, 2 TIMES DAILY, First dose on Wed09/09/22 at 0900, Until Discontinued, Post-op * 0839 (Given - Provider: Sanna Stoner RN) * 2100 (Due) enoxaparin (LOVENOX) injection 40 mg 40 mg, SubCUTAneous, 2 times daily, First dose on Wed09/09/22 at 0900, Until Discontinued, Indication of Use: Prophylaxis-DVT/PE, Pharmacy to dose if renal insufficiency present., Post-op * 0804 (Not Given - Provider: Sanna Stoner RN - Reason: Patient/family refused) * 2100 (Due) gabapentin (NEURONTIN) capsule 300 mg 300 mg, Oral, NIGHTLY, First dose on Wed09/08/22 at 2100, Until Discontinued, Post-op * 2208 (Given - Provider: Margarita Yeh RN) * 2100 (Due) insulin lispro (HUMALOG) injection vial 0-4 Units 0-4 Units, SubCUTAneous, NIGHTLY, First dose on Wed09/08/22 at 2100, Until Discontinued, If continuous tube feedings/TPN/NPO, give correction dose based on result, no reduction in dose. If eating or bolus tube feeding: Corrective Bedtime Algorithm Glucose: Dose: 70-299 No Insulin 300-349 4 Units Over 349 4 Units and notify physician, Post-op * 2035 (Not Given - Provider: Margarita Yeh RN - Reason: Order parameters not met) * 2100 (Due) insulin lispro (HUMALOG) injection vial 0-8 Units 0-8 Units, SubCUTAneous, 3 TIMES DAILY WITH MEALS, First dose on Wed09/08/22 at 1315, Until Discontinued, Medium Dose Corrective Algorithm Glucose: Dose: 70-199 No Insulin 200-249 2 Units 250-2994 Units 300-349 6 Units Over 349 8 Units and notify physician, Post-op * 1343 (Given - Provider: Brittany Cooney RN) * 1807 (Not Given - Provider: Brittany Cooney RN - Reason: Order parameters not met) * 0839 (Not Given - Provider: Sanna Stoner RN - Reason: Order parameters not met) * 1259 (Not Given - Provider: Sanna Stoner RN - Reason: Order parameters not met) * 1700 (Due) ketorolac (TORADOL) injection 30 mg (COMPLETED) 30 mg, IntraVENous, EVERY 6 HOURS, 3 doses, First dose on Wed09/08/22 at 1215, Last dose on Wed09/09/22 at 0015, Do not administer for more than 5 days., Post-op * 1213 (Given - Provider: Brionna Garland RN) * 1810 (Given - Provider: Brittany Cooney RN) * 0047 (Given - Provider: Margarita Yeh, HEAVENLY) magnesium hydroxide (MILK OF MAGNESIA) 400 MG/5ML suspension 30 mL 30 mL, Oral, DAILY, First dose on Wed09/09/22 at 0900, Until Discontinued, Post-op * 0815 (Not Given - Provider: Sanna Stoner RN - Reason: Other - Comment: pt passing gas) montelukast (SINGULAIR) tablet 10 mg 10 mg, Oral, NIGHTLY, First dose on Wed09/08/22 at 2100, Until Discontinued, Post-op * 2038 (Given - Provider: Margarita Yeh RN) * 2099 (Due) pantoprazole (PROTONIX) tablet 40 mg 40 mg, Oral, 2 TIMES DAILY, First dose on Wed09/08/22 at 2100, Until Discontinued, Do not crush or break., Post-op * 2037 (Given - Provider: Margarita Yeh RN) * 0839 (Given - Provider: Sanna Stoner RN) * 2100 (Due) PARoxetine (PAXIL) tablet 30 mg 30 mg, Oral, EVERY MORNING, First dose on Wed09/09/22 at 0900, Until Discontinued, Post-op * 0839 (Given - Provider: Sanna Stoner RN) sennosides-docusate sodium (SENOKOT-S) 8.6-50 MG tablet 2 tablet 2 tablet, Oral, 2 times daily, First dose on Wed09/08/22 at 2100, Until Discontinued, Post-op * 2037 (Given - Provider: Margarita Yeh RN) * 0839 (Given - Provider: Sanna Stoner RN) * 2100 (Due) sodium chloride flush 0.9 % injection 5-40 mL 5-40 mL, IntraVENous, EVERY 12 HOURS SCHEDULED (2 times per day), First dose on Wed09/08/22 at 2100, Until Discontinued, For Line Patency: Peripheral IV = 5 mL; Midline or Central Line = 10 mL/lumen.If following IV push medication, administer flush at same rate as the IV push. Flush volume is determined by type of infusion therapy being given. For non-viscous solutions use: Peripheral IV = 5 mL Midline or Central Line = 10 mL/lumen For viscous solutions (i.e. blood components, parenteral nutrition, contrast media, or after obtaining blood sample) use: Peripheral IV = 10 mL Midline or CentralLine = 20 mL/lumen, Post-op * 2038 (Not Given - Provider: Margarita Yeh RN - Reason: IV Fluid Infusing) * 0840 (Not Given - Provider: Sanna Stoner RN - Reason: IV Fluid Infusing) * 2100 (Due) verapamil (CALAN SR) extended release tablet 240 mg 240 mg, Oral, DAILY, First dose on Wed09/09/22 at 0900, Until Discontinued, Tablet may be divided, but do not crush or break., Post-op * 0839 (Given - Provider: Sanna Stoner RN) Medication Order/ 0.9 % sodium chloride infusion (CANCELED) IntraVENous, at 125 mL/hr, CONTINUOUS, Starting on Wed09/08/22 at 0645, Pre-op (day of surgery) * 0656 (New Bag - Provider: Jacque Perry RN) * 0726 (NoRateChange - Provider: VIRGINIE Cherry CRNA) * 0907 (Paused - Provider: VIRGINIE Cherry CRNA - Comment: Switch to gravity) * 0908 (Restarted - Provider: VIRGINIE Cherry CRNA) * 1013 (Anesthesia Volume Adjustment - Provider: VIRGINIE Cherry CRNA) * 1046 (Anesthesia Volume Adjustment - Provider: VIRGINIE Cherry CRNA) * 1059 (New Bag - Provider: VIRGINIE Cherry CRNA) * 1020 (Stopped - Provider: Sanna Stoner RN) 0.9 % sodium chloride infusion (CANCELED) IntraVENous, at 125 mL/hr, CONTINUOUS, Starting on Wed09/08/22 at 1315, Post-op * 1314 (New Bag - Provider: Brittany Cooney, HEAVENLY) * 1823 (New Bag - Provider: Brittany Cooney, RN) * 1823 (Rate/Dose Verify - Provider: Brittany Cooney RN) * 1953 (Rate/Dose Verify - Provider: Brittany Cooney RN) * 0049 (New Bag - Provider: Margarita Yeh RN) * 1019 (Stopped - Provider: Sanna Stoner RN) Medication Order/ 0.9 % sodium chloride infusion IntraVENous, at [...] Wed09/08/22 at 1254, Repeat blood glucose in 15minutes. If blood glucose remains LESS THAN 70 mg/dL, repeat treatment and recheck blood glucose in15 minutes x 2. If using glycemic management [...] at 100 mL/hr. Repeat blood glucose in 15minutes x 2 and notify provider., Post-op glucose chewable tablet 16 g 16 g (4 tablet), Oral, PRN, Starting on Wed09/08/22 at 1254, Until Discontinued, Low blood sugar, If blood glucose is LESS THAN 70 mg/dL and patient is alert and tolerating oral. Give 4 tablets (16g)Repeat blood glucose in 15 minutes. If blood glucose is LESS THAN 70 mg/dL, repeat treatment and recheck blood glucose in 15 minutes x 2. If blood glucose remains LESS THAN 70 mg/dL, notify provider., Post-op HYDROmorphone (DILAUDID) injection 0.5 mg (COMPLETED) 0.5 mg, IntraVENous, EVERY 5 MIN PRN, 4 doses, Starting on Wed09/08/22 at 1118, Until Discontinued,Pain Severe (7-10), Phase I - Initial therapy for severe pain., PACU only * 1121 (Given - Provider: Brionna Garland RN) * 1127 (Given - Provider: Brionna Garland RN) * 1136 (Given - Provider: Brionna Garland RN) * 1146 (Given - Provider: Brionna Garland RN) melatonin [...] 1254, Until Discontinued, Pain Severe (7-10), Post-op * 161 (See Alternative - Provider: Brittany Cooney RN) * 2033 (See Alternative - Provider: Margarita Yeh RN) * 0943 (See Alternative - Provider: Sanna Stoner RN) oxyCODONE (ROXICODONE) immediate release tablet 5 mg(Linked Group 3) 5 mg, Oral, EVERY 4 HOURS PRN, Starting on Wed09/08/22 at 1254, Until Discontinued, Pain Moderate (4-6), Post-op * 1611 (Given - Provider: Brittany Cooney RN) * 2033 (Given - Provider: Margarita Yeh RN) * 0943 (Given - Provider: Sanna Stoner RN) prochlorperazine (COMPAZINE) injection 10 mg 10 mg, IntraVENous, EVERY 6 HOURS PRN, Starting on Wed09/08/22 at 1254, Until Discontinued, Nausea,If administering IV push, administer at a maximum rate of 5 mg/minute., Post-op simethicone (MYLICON) chewable tablet 80 mg 80 mg, Oral, EVERY 6 HOURS PRN, Starting on Wed09/08/22 at 1254, Until Discontinued, Cramping, Post-op * 1927 (Given - Provider: Brittany Cooney RN) * 0936 (Given - Provider: Sanna Stoner RN) sod chloride IRR soln 0.9 % irrigation (CANCELED) CONTINUOUS PRN, Starting on Wed09/08/22 at 0906, Intra-op * 0906 (New Bag - Provider: Clemencia Gambino MD) * 1013 (New Bag - Provider: Clemencia Gambino MD - Comment: FOR CYSTO IRRIGATION) sodium chloride 0.9 % 20 mL with bupivacaine liposome (EXPAREL) 20 mL (CANCELED) PRN, Starting on Wed09/08/22 at 0829, Intra-op * 0829 (Given - Provider: Clemencia Gambino MD) [...] For viscous solutions (i.e. blood components, parenteral nutrition,contrast media, or after obtaining blood sample) use: Peripheral IV = 10 mL Midline or Central Line= 20 mL/lumen, Post-op Order Group 1: dextrose bolus 10% 125 [...] 1254, Until Discontinued, Pain Severe (7-10), Post-op Medication Order/// iopamidol (ISOVUE-370) 76 % injection 75 mL (COMPLETED) 75 mL, IntraVENous, IMG ONCE PRN, 1 dose, Starting on Wed09/23/22 at 1136, Until Wed09/23/22 at 1144, Other * 1144 (Given - Provider: Marisa Kumar) Medication Order// acetaminophen (OFIRMEV) IVPB 1,000 mg (COMPLETED) 1,000 mg, Intravenous, at 400 mL/hr, Administer over 15 Minutes, ONCE, 1 dose, On Wed02/11/23 at 1530 * 1457 ($$New Bag$$ - Provider: Margaret Ortiz, HEAVENLY) * 1539 (Stopped - Provider: Margaret Ortiz RN) Ondansetron 4mg/2ml (ZOFRAN) injection 4 mg (COMPLETED) 4 mg, Intravenous, ONCE, 1 dose, On Mirian 02/11/23 at 1100, Pre-op/Pre-Proc * 1030 (Given - Provider: Liss Iyer RN) Sodium chloride 0.9% IV solution 1,000 mL (COMPLETED) 1,000 mL, Intravenous, ONCE, 1 dose, On Mirian 02/11/23 at 0845 * 0842 ($$New Bag$$ - Provider: Nellie Mosqueda LPN) * 1555 (Stopped - Provider: Margaret Ortiz RN) Medication Order// Bupivacaine-Epinephrine (MARCAINE;SENSORCAINE-MPF) 0.5% -[id number] injection (CANCELED) NEEDED, Starting on Mirian 02/11/23 at 1332, Until Mirian 02/11/23 at 1401, Intra-op/Intra-Proc * 1332 (Given - Provider: Elliot Zheng MD) ceFAZolin (ANCEF) 2 g in dextrose 100 mL premix IVPB (COMPLETED) 2 g, Intravenous, Administer over 30 Minutes, ENTRY LEVEL SALES CONSULTANT TO PROCEDURE, 1 dose, Starting on Mirian 02/11/23at 0801, Until Discontinued, Other, Pre-operative antibiotic, Pre-op/Pre-Proc * 1227 (Given - Provider: Omero Carpenter APRN-CLIENT SERVICE CONSULTANT - Comment: PSR) hydroCODone-acetaminophen (NORCO) 5-325 MG per tablet 1-2 tablet 1-2 tablet, Oral, EVERY 4 HOURS NEEDED, Starting on Mirian 02/11/23 at 1423, Until Mirian 02/11/23 at 1756, Other, See Admin Instructions, 1 tablet for pain scale 4 or 5 out of 10 2 tablets for pain scale6 to 10 out 10, Post-op/Post-Proc mineral oil topical liquid (CANCELED) NEEDED, Starting on Mirian 02/11/23 at 1334, Until Mirian 02/11/23 at 1401, Intra-op/Intra-Proc * 1334 (Given - Provider: Elliot Zheng MD - Comment: used during the case on items on the sterile field) Oxidized Cellulose (SURGICEL) topical pad (CANCELED) NEEDED, Starting on Wed02/11/23 at 1332, Until Wed02/11/23 at 1401, Intra-op/Intra-Proc * 1332 (Given - Provider: Elliot Zheng MD - Comment: placed on sterile field for use during the case) Vancomycin (VANCOCIN) injection (CANCELED) NEEDED, Starting on Wed02/11/23 at 1333, Until Wed02/11/23 at 1401, Intra-op/Intra-Proc * 1333 (Given - Provider: Elliot Zheng MD) Medication Order/ diphenhydrAMINE (BENADRYL) injection 1 dose, Starting on Wed02/11/23 at 1412, Until Wed02/12/23 at 1415, Omero Carpenter: cabinet override * 1415 (Canceled Entry - Provider: System Discharge - Comment: Automatically canceled at discontinue of medication order) Scopolamine (TRANSDERM-SCOP) patch 1 dose, Starting on Wed02/11/23 at 1031, Until Wed02/11/23 at 1756, Inge Osborne: cabinet override * 1045 (Canceled Entry - Provider: System Discharge - Comment: Automatically canceled at discontinue of medication order) Medication Order// Ondansetron 4mg/2ml (ZOFRAN) injection 4 mg (COMPLETED) 4 mg, Intravenous, ONCE, 1 dose, On Wed07/02/23 at 1015 * 1012 (Given - Provider: Liss Iyer, HEAVENLY) Medication Order// Sodium chloride 0.9% IV solution Intravenous, at 125 mL/hr, CONTINUOUS, Starting on Wed07/02/23 at 0845, Until Wed07/02/23 at 1215 * 0914 ($$New Bag$$ - Provider: Terry Vicente APRN-CLIENT SERVICE CONSULTANT) * 1001 (Stopped - Provider: Liss Iyer RN) Medication Order01/31////07/2023 BUPivacaine (PF) (MARCAINE) 0.5 % injection (CANCELED) NEEDED, Starting on Wed07/02/23 at 0923, Until Wed07/02/23 at 0938, Intra-op/Intra-Proc * 0923 (Given - Provider: Elliot Zheng MD - Comment: placed on sterile field for use during the case) methylPREDNISolone acetate (DEPO-MEDROL) injection (CANCELED) NEEDED, Starting on Wed07/02/23 at 0924, Until Wed07/02/23 at 0938, Intra-op/Intra-Proc * 0924 (Given - Provider: Elliot Zheng MD - Comment: placed on sterile field for use during the case) Medication Order12/21//// ketorolac (TORADOL) injection 30 mg (COMPLETED) 30 mg, IntraMUSCular, ONCE, 1 dose, On Wed12/24/23 at 1115, Do not administer for more than 5 days. * 1129 (Given - Provider: Abdias Nascimento RN) oxyCODONE-acetaminophen (PERCOCET) 5-325 MG per tablet 1 tablet (COMPLETED) 1 tablet, Oral, ONCE, 1 dose, On Wed12/24/23 at 1130, Maximum dose of acetaminophen is 4000 mg fromall sources in 24 hours. * 1129 (Given - Provider: Abdias Nascimento RN) Medication Order// triamcinolone acetonide (KENALOG-40) injection 80 mg (COMPLETED) 80 mg, IntraMUSCular, ONCE, 1 dose, On Wed05/12/24 at 1530 * 1525 (Given - Provider: Shakira Castaneda RN) Care Teams (unrecognized sec tion and content) Team MemberRelationshipSpecialtyStart DateEnd Date Zayra Sloan DO [address] [place] [address] PCP - GeneralFamily Micupzvw84/1/19Team MemberRelationshipSpecialtyStart DateEnd Date Zayra Sloan DO [address] [place] [phone] PCP - [facility]03/31/19Team MemberRelationshipSpecialtyStart DateEnd Date Zayra Sloan, DO [address] [place] [id number] PCP - [facility]03/31/19Team MemberRelationshipSpecialtyStart DateEnd Date Zayra Sloan, DO [address] [place] [address] PCP - [facility]03/31/19Team MemberRelationshipSpecialtyStart DateEnd Date Zayra Sloan, DO [address] [place] [address] PCP - [facility]03/31/19Team MemberRelationshipSpecialtyStart DateEnd Date Zayra Sloan, DO [address] [place] [address] PCP - [facility]03/31/19 Team Status: Inactive Member Role Status Dates NON STAFF Primary Care Provider Active Evan Mejia ProviderActive Team Status: Active Member Role Status Dates NON STAFF Primary Care Provider Active Team MemberRelationshipSpecialtyStart DateEnd Date Zayra Sloan, DO [address] [place] [address] PCP - [facility]03/31/19Team MemberRelationshipSpecialtyStart DateEnd Date Zayra Sloan, DO [address] [place] [address] PCP - [facility]03/31/19Team MemberRelationshipSpecialtyStart DateEnd Date Zayra Sloan, DO [address] [place] [address] PCP - [facility] Gkbzwzpm79/1/19Team MemberRelationshipSpecialtyStart DateEnd Date Zayra Sloan, DO [address] [place] [address] PCP - [facility] Adifufci46/1/19Team MemberRelationshipSpecialtyStart DateEnd Date Zayra Sloan, DO [address] [place] [address] PCP - [facility]03/31/19Team MemberRelationshipSpecialtyStart DateEnd Date Zayra Sloan, DO [address] [place] [address] PCP - [facility]03/31/19Team MemberRelationshipSpecialtyStart DateEnd Date [facility] Other [address] [place] [address] PCP - GeneralOther06/16/22Team MemberRelationshipSpecialtyStart DateEnd Date Zayra Sloan, DO [address] [place] [address] PCP - [facility]03/31/19Team MemberRelationshipSpecialtyStart DateEnd [facility] Other [address] [place], [place] [phone] PCP - GeneralOther06/16/22Team MemberRelationshipSpecialtyStart DateEnd Date Zayra Sloan, DO [address] [place] [address] PCP - GeneralFamily Hsjmfnwi56/1/19Team MemberRelationshipSpecialtyStart DateEnd Date Zayra Sloan DO [address] [place] [address] PCP - GeneralFamily Ksftmajq31/1/19Team MemberRelationshipSpecialtyStart DateEnd Date [facility], [facility]. Other [address] [place] [address] PCP - GeneralOther1/1723Team MemberRelationshipSpecialtyStart DateEnd Date [facility], [facility]. Other [address] [place] [address] PCP - GeneralOther1/23Team MemberRelationshipSpecialtyStart DateEnd Date Zayra Sloan DO [address] [place] [address] [facility] - [facility] Sigxhtcn36/1/19Team MemberRelationshipSpecialtyStart DateEnd Date [facility], [facility]. Other [address] [place] [address] PCP - GeneralOther1/17/23Team MemberRelationshipSpecialtyStart DateEnd Date [facility], [facility]. Other [address] [place] [address] PCP - GeneralOther1/17/23Team MemberRelationshipSpecialtyStart DateEnd Date [facility], [facility]. Other [address] [place] [address] PCP - GeneralOther1/17/23Team MemberRelationshipSpecialtyStart DateEnd Date [facility], [facility]. Other [address] [place] [phone] PCP - GeneralOther1/Team MemberRelationshipSpecialtyStart DateEnd Date [facility]. Other [address] [place] [address] PCP - GeneralOther1/23Team MemberRelationshipSpecialtyStart DateEnd Date [facility], [facility]. Other [address] [place] [address] PCP - GeneralOther1/Team MemberRelationshipSpecialtyStart DateEnd Date [facility], [facility]. Other [address] [place] [phone] PCP - GeneralOther1/Team MemberRelationshipSpecialtyStart DateEnd Date Zayra Sloan DO [address] [place] [address] PCP - GeneralFamily Cybxkzpg02/1/19Team MemberRelationshipSpecialtyStart DateEnd Date Zayra Sloan DO [address] [place] [address] PCP - GeneralFamily Nihczjtb85/1/19Team MemberRelationshipSpecialtyStart DateEnd Date Zayra Sloan DO [address] [place] [address] PCP - GeneralFamily Lxsbdivm74/1/19Team MemberRelationshipSpecialtyStart DateEnd Date Zayra Sloan DO [address] [place] [address] [facility] Gbrjdchy86/1/19Team MemberRelationshipSpecialtyStart DateEnd Date Zayra Sloan, DO [address] [place] [address] PCP - [facility]03/31/19Team MemberRelationshipSpecialtyStart DateEnd Date Zayra Sloan, DO [address] [place] [address] PCP - [facility]03/31/19Team MemberRelationshipSpecialtyStart DateEnd Date Zayra Sloan, [address] [place] [address] PCP - [facility]03/31/19Team MemberRelationshipSpecialtyStart DateEnd Date Zayra Sloan, [address] [place] [address] PCP - [facility]03/31/19Team MemberRelationshipSpecialtyStart DateEnd Date Zayra Sloan, [address] [place] [address] PCP - [facility]03/31/19Team MemberRelationshipSpecialtyStart DateEnd Date Zayra Sloan, DO [address] [place] [address] PCP - [facility]03/31/19Team MemberRelationshipSpecialtyStart DateEnd Date Zayra Sloan, [address] [place] [address] PCP - [facility]03/31/19Team MemberRelationshipSpecialtyStart DateEnd Date Zayra Sloan, DO [address] [place] [address] [facility] - [facility]03/31/19Team MemberRelationshipSpecialtyStart DateEnd Date Zayra Sloan, DO [address] [place] [address] [facility] - [facility]03/31/19 Goals (unrecognized section and content) Goals may [...] BE BASED ON THE PRIMARY CLINICAL RECORDS. [facility] [employer] [facility]. provides no warranty or guarantee of the accuracy or completeness of information in this document.
--- NOTE | 2025-05-03 11:15 | PM.CN ---
Consult Note: HPI Data of Consult Patient: known to practice within the last 3 years Requesting Physician: Luz Singh NP Primary Care Provider: Non-Staff Physician, MD Consult Narrative Reason for consult: knee pain Narrative: Sarah Becerra a 49 year old female with chronic bilateral knee pain secondary to OA and chronic pain secondary to fibromyalgia presents for evaluation. has failed > 6 weeks of PT/HEP, heat, ice, tylenol, NSAIDs. has also failed to benefit from steroid and REILLY injections to bilateral knees. She is interested in joint replacement however she needs to lose weight first. Her insurance will not cover genicular nerve blocks/RFAs. Pain today 12/07 constant. finds no benefit to current medication regimen, denies side effects. pt noting fibromyalgia flare up at this time cc:: CC: Luz Singh NP [facility] Medical History (Updated 05/03/25 @ 11:17 by Luz Singh NP) Bilateral knee pain ?M25.561 - Pain in right knee (ICD-10) ?M25.562 - Pain in left knee (ICD-10) Osteoarthritis ?M19.90 - Unspecified osteoarthritis, unspecified site (ICD-10) Anxiety ?F41.9 - Anxiety disorder, unspecified (ICD-10) Diabetes ?E11.9 - Type 2 diabetes mellitus without complications (ICD-10) HTN (hypertension) ?I10 - Essential (primary) hypertension (ICD-10) Surgical History History of Achilles tendon repair ?Z98.890 - Other specified postprocedural states (ICD-10) History of hysterectomy ?Z90.710 - Acquired absence of both cervix and uterus (ICD-10) History of lumbar fusion ?Z98.1 - Arthrodesis status (ICD-10) History of hernia repair ?Z98.890 - Other specified postprocedural states (ICD-10) ?Z87.19 - Personal history of other diseases of the digestive system (ICD-10) Meds Home Medications and Allergies Home Medications ?Medication ?Instructions ?Recorded ?Confirmed ?Type dulaglutide 1.5 mg/0.5 mL 1.5 mg subcut QWEEK 01/24/24 02/21/24 [facility] gabapentin 300 mg capsule 300 mg PO DAILY 01/24/24 02/21/24 History melatonin 5 mg tablet 5 mg PO DAILY 01/24/24 02/21/24 History metformin 1,000 mg tablet 1,000 mg PO BID 01/24/24 02/21/24 History pantoprazole 40 mg tablet,delayed 40 mg PO BID 01/24/24 02/21/24 History release (Protonix) paroxetine HCl 30 mg tablet (Paxil) 30 mg PO DAILY 01/24/24 02/21/24 History verapamil 240 mg 24 hr 240 mg PO DAILY 01/24/24 02/21/24 History capsule,extended release nabumetone 500 mg tablet 500 mg PO BID PRN pain #60 tabs 11/08/24 Rx nabumetone 500 mg tablet 500 mg PO BID PRN pain #60 tabs 02/07/25 Rx Allergies Allergy/AdvReac Type Severity Reaction Status Date / Time acetaminophen (From [place]) Allergy Unknown Unknown Verified 02/21/24 08:37 codeine Allergy Unknown Unknown Verified 02/21/24 08:37 hydrocodone (From [place]) Allergy Unknown Unknown Verified 02/21/24 08:37 Sulfa (Sulfonamide Allergy Unknown Unknown Verified 02/21/24 08:37 Antibiotics) Exam Narrative Exam Narrative: diffuse pain and hyperalgesia Constitutional Documenting provider has reviewed patient's vital signs: yes Common normals: no apparent distress, oriented x3 and alert General appearance: cooperative HENMT Common normals: normocephalic, hearing grossly normal bilaterally and moist oral mucous membranes Head and scalp: normocephalic Eye Common normals: PERRL Pupil: PERRL Neck & C-Spine Common normals: full ROM General: normal visual inspection Chest Common normals: inspection of chest normal Respiratory Common normals: normal respiratory effort, no retractions and no use of accessory muscles Back & Pelvis Thoracic spine/upper back: paraspinal muscle tenderness Lumbar spine/lower back: paraspinal muscle tenderness and straight leg raise negative bilaterally Neuro Common normals: oriented x3 Sensorium/orientation: alert Psych Common normals: mental status grossly normal, thought process normal, cooperative, affect normal, speech normal and activity/motor behavior normal Speech: normal speech Thought process: normal thought process Results Additional Findings Additional findings: If on a controlled substance or opioids, I have checked an [place] report on this patient and there are no aberrancies noted in the prescribing history.??If on a controlled substance or opioid a drug screen was completed and reviewed within the last year, and if there has not been a drug screen completed we ordered one today to monitor higher risk, state monitored pain medication use. As part of providing excellent, safe, comprehensive care, the following was completed at our patient's visit: 1. A medication reconciliation and review to ensure accurate knowledge of current/active medications, including asking our patients to inform us about any [id number]-[id number] medications or herbal remedies/nutritional supplements/alternative remedies. 2. A review to specifically ensure our patients have had annual screening for screening for depression, screening for tobacco use, and screening for unhealthy alcohol use. For concerning screenings had a discussion with the patient, provided patient education, and recommended follow-up with primary care provider when appropriate. If patient noted with a risk of falling, they received education on strength, gait, and balance training to prevent future risk of falling. Portions of this note may have been carried over from the previous visit and updated as appropriate. Please note this office utilizes paper charting in addition to the electronic medical record. A list of current medications, vitals, and PMH is available there as the clinical staff outside of myself do not have access to [employer] charting during the clinic day operations. As part of providing quality comprehensive care the current medications, vitals, and PMH were reviewed in the paper chart. Assessment and Plan Assessment and Plan (1) Fibromyalgia: (2) Failed back syndrome: Assessment and Plan: noting 60% improvement with SCS (3) Bilateral primary osteoarthritis of knee: (4) Bilateral knee pain: (5) Chronic pain syndrome: Plan start duloxetine 30mg am for chronic pain secondary to fibromyalgia start baclofen 5-10mg tid prn pain/spasms dc nabumetone due to ineffectiveness encouraged HEP as tolerated, pt declining aquatherpy f/u 6 weeks to evaluate medication changes
== END 2025-05-03 10:45 | disposition home or self-care (01) ==
LOC: PM 10:44
PROVIDERS: Visit Provider Nurse Practitioner
DX: M79.7 Fibromyalgia (principal); M96.1 Postlaminectomy syndrome, not elsewhere classified; M17.0 Bilateral primary osteoarthritis of knee; M25.561 Pain in right knee; M25.562 Pain in left knee; G89.4 Chronic pain syndrome
CPT/HCPCS: G0463